=== PATIENT | female | born 1980 | race African-American/Black ===

== ENCOUNTER 2023-07-22 23:52 | Emergency (ER) | payer OTHER ==
--- OUTSIDE RECORDS SUMMARY | 2023-07-22 23:58 | XMS REPORT | Continuity of Care Document ---
Author Name Unknown Address [address] [facility] [address] [place] [address] [facility] thconnect Address [address] [facility] [address] [place] [address] Care Team Providers Care Services Advisor Name Role Phone No , Pcp Primary Care Physician Unavailab Samia Matson Attending Clinician Unavailab Bj Claudio Attending Clinician Unavailable Shaq Coats Attending Clinician Unavailab Terence Araujo MD Attending Clinician [phone] Jam Tolliver Attending Clinician Unavailable Brett Rodriguez Attending Clinician Unavailable Grace Castano Attending Clinician Unavailable Glen Nava Attending Clinician Unavailable Rony Hickey Attending Clinician Unavailable Ron Tipton Attending Clinician Unavailable [facility]_Lotze_P Attending Clinician UnavailMary Kay Carvalho Attending Clinician [phone] Robyn Henry Attending Clinician Unavailaugustina Tolliver, Jam H Admitting Clinician Unavailable Bj Oneal Admitting Clinician Unavailable Javi Cuadra Admitting Clinician Unavailable Grace Castano Admitting Clinician Unavailable Glen Nava Admitting Clinician Unavailable Ron Tipton Admitting Clinician Unavailable UNDEFINED Admitting Clinician Unavailable [facility]_Lotze_P Admitting Clinician Unavaila ble KNOW, DOES_NOT Admitting Clinician Unavailable Payers Payer Name Policy Type Policy Number Effective Date Expirati on Date Source [facility] [id number] 2021 00:00:00 Allergies, Adverse Reactions, Alerts Allergy Name Allergy Type Status Severity Reaction(s) Onset Date Inactive Date Treating Clinician Comments Source Iodinate d Contrast Media DA Active U UNKNOWN 0 2-20 00:00: 00 [facility] adhesive tape DA Active [place] HIVES 0 1-15 00:00: 00 [facility] sumatrip bailey DA Active U ITCHY 0 1-15 00:00: 00 [facility] ertapene m DA Active [place] Itching 0 1-15 00:00: 00 [facility] CONTRAST DA Active FL RASH 2023-0 1-15 00:00: 00 [facility] Adhesive Tape Drug Allergy Active Hives 2022-0 9-21 00:00: 00 [facility] adhesive tape DA Active [place] HIVES 2022-0 9-21 00:00: 00 [facility] Ertapene m Allergy to substanc e Active Itching 2022-0 9-10 00:00: 00 [facility] ertapene m DA Active FL Itching 2022-0 9-10 00:00: 00 [facility] sumatrip bailey DA Active [place] ANXIETY 2021-0 7-07 00:00: 00 [facility] sumatrip bailey DA Active U ITCHY 2021-0 6-08 00:00: 00 [facility] Sumatrip bailey Allergy to substanc e Active Hives 2021-0 6-08 00:00: 00 [facility] Social History Social Habit Start Date Stop Date Quantity Comments Source Sexual orientation [facility] History of tobacco use Cigar Smoker [facility] Tobacco use and exposure 2023-02-04 00:00:00 2023-02-04 00:00:00 Smokeless tobacco non-user [facility] Sex Assigned At 1980 00:00:00 1980 00:00:00 [facility] Smoking Status Start Date Stop Date Source Occasional tobacco smoker 2023-02-04 00:00:00 [facility] Medications Ordered Medication Name Filled Medication Name Start Date Stop Date Current Medication? Ordering Clinician Indication Dosage Frequency Signature (SIG) Comments Components Source losartan (Cozaar) 25 MG tablet 2022-03 12:01: 14 Yes 1{tbl} 1 tablet. [facility] Ozempic, 2 MG/DOSE, 8 MG/3ML solution pen-injecto r 2022-03 00:00: 00 Yes [facility] hydroCHLORO thiazide (HYDRODiuri l) 25 MG tablet 2022-03 00:00: 00 04-24 05:59 :00 No 25mg Take 25 mg by mouth 1 (one) time each day in the morning. [facility] citalopram (CeleXA) 10 MG tablet 2022-03 00:00: 00 Yes 10mg QD Take 10 mg by mouth 1 (one) time each day. FOR 30 DAYS [facility] albuterol 108 (90 Base) MCG/ACT inhaler 2022-03 00:00: 00 Yes TAKE 2 PUFF BY MOUTH EVERY 4 HRS NEEDED [facility] levothyroxi ne (Synthroid, Levoxyl) 125 MCG tablet 11-06 00:00: 00 Yes 1 (one) time each day at the same time. [facility] cephalexin 500 mg capsule cephalexin 500 mg capsule No cephalexin 500 mg capsule [facility] ketorolac 10 mg tablet ketorolac 10 mg tablet No ketorolac 10 mg tablet [facility] Vital Signs Vital Name Observation Time Observation Value Comments S our Systolic blood pressure 2023-02-04 18:22:00 105 mm[Hg] [facility] Diastolic blood pressure 2023-02-04 18:22:00 72 mm[Hg] [facility] Heart rate 2023-02-04 18:22:00 81 /min [facility] Body temperature 2023-02-04 18:22:00 36.78 Sarah [facility] Body height 2023-02-04 18:22:00 165.1 [facility] Body weight 2023-02-04 18:22:00 95.255 kg [facility] BMI 2023-02-04 18:22:00 34.95 kg/m2 [facility] BP Diastolic 2021-09-18 00:00:00 93 mm[Hg] [facility] Height 2021-09-18 00:00:00 65 [in_i] [facility] BMI (Body Mass Index) 2021-09-18 00:00:00 33.3 kg/m2 [facility] BP Systolic 2021-09-18 00:00:00 137 mm[Hg] [facility] Body Weight 2021-09-18 00:00:00 200 [lb_av] [facility] Procedures Procedure Date / Time Performed Performing Clinicia n Source [id number] 2023-04-15 00:00:00 [id number] [facility] [id number] 2023-04-09 00:00:00 HINPE [facility] [id number] 2022-11-24 00:00:00 KUMSA.02 [facility] [id number] 2022-11-24 00:00:00 KUMSA.02 [facility] [id number] 2022-11-21 00:00:00 HINPE [facility] [id number] 2022-11-21 00:00:00 HINPE [facility] [id number] 2021-09-29 00:00:00 WILJA.07 [facility] Encounters Start Date/Time End Date/Time Encounter Type Admission Type Attending [facility] Care Facility Care Department Encounter ID Source 2023-05-14 21:51:00 2023-05-15 05:32:00 Emergency EM Shana Samia HCAPM SHMUEL [id number] [facility] 2023-04-08 17:20:00 2023-04-15 17:27:00 Inpatient EM Bj Oneal HCAPM MEDI.01 [id number] [facility] 2023-04-08 12:03:00 2023-04-08 12:03:00 Outpatient Shaq Coats [facility] [id number] [facility] 2023-02-04 11:15:00 2023-02-04 12:50:41 Office Visit Terence Puentes [facility] 1 [id number] [facility] 2023-01-22 12:00:00 2023-01-22 12:00:00 Outpatient EL Jam Tolliver HCAPM KANDACE [id number] [facility] 2023-01-03 13:02:00 2023-01-03 13:02:00 Outpatient EL Jennifer, Brett HCAPM RADI [id number] [facility] 2022-12-14 12:20:00 2022-12-14 12:20:00 Outpatient EL Jennifer, Brett HCACL LABO [id number] [facility] 2022-12-14 06:10:00 2022-12-14 06:10:00 Outpatient EL Jennifer, Brett HCAPM DIALLO [id number] [facility] 2022-12-03 12:49:00 2022-12-05 14:36:00 Inpatient EM Grace Castano HCAPM MEDI.01 [id number] [facility] 2022-12-02 18:34:00 2022-12-02 18:34:00 Outpatient EL Charity Castanotaramorgan HCACL LABO [id number] [facility] 2022-11-20 15:41:00 2022-11-24 20:02:00 Inpatient EM Glen Nava HCAPM MEDI.01 [id number] [facility] 2022-11-20 16:14:00 2022-11-20 16:14:00 Outpatient Glen Nava HCACL LABO [id number] [facility] 2022-11-07 06:14:00 2022-11-07 09:20:00 Emergency EM Rony Hickey HCAPM SHMUEL [id number] [facility] 2022-11-01 17:19:00 2022-11-04 16:13:00 Inpatient EM Bj Oneal HCAPM TELE [id number] [facility] 2022-11-01 22:37:00 2022-11-01 22:37:00 Outpatient Bj Oneal HCACL LABO [id number] [facility] 2021-09-28 23:24:00 2021-09-29 22:18:00 Inpatient Ron Pelayo [facility] ICU [id number] [facility] 2021-09-28 23:24:00 2021-09-29 22:18:00 Inpatient Ron Pelayo [facility] ICU [id number] [facility] 2021-09-29 17:44:00 2021-09-29 17:44:00 Outpatient Ron Tipton [facility] [id number] [facility] 2021-09-19 05:20:00 2021-09-19 05:20:00 Outpatient [facility] _Lotze_P PRIV PRIV [id number] [facility] 2021-09-18 04:18:00 2021-09-18 04:18:00 Outpatient [facility] _Lotze_P PRIV PRIV [id number] [facility] 2021-09-18 00:00:00 2021-09-18 00:00:00 Mary Kay Robertson, PRODUCT DEVELOPMENT CARPENTER: [address], [address], [place] [address] , Ph. [phone] [facility] - [facility] _Nas Office* [id number] [facility] 2021-09-18 00:00:00 2021-09-18 00:00:[address] [facility] [id number] 2021-09-08 02:12:00 2021-09-08 02:12:00 Outpatient [facility] _Lotze_P PRIV PRIV [id number] [facility] 2021-08-30 19:42:00 2021-08-31 01:46:00 Emergency EM Daphney Henryice [facility] [id number] [facility] 2021-08-30 19:42:00 2021-08-31 01:46:00 Emergency EM Robyn Henry [facility] [id number] [facility] 2021-08-30 04:41:00 2021-08-30 04:41:00 Outpatient [facility] _Lotze_P [facility] PRIV [id number] [facility] Results Test Description Test Time Test Comments Results Result Co mments Source BASIC METABOLIC [id number] 05:28:00* Test Item Value Reference Range Interpretation Comme nts SODIUM (test code = NA) 139 mmol/L 134-147 N POTASSIUM (test code = K) 3.6 mmol/L 3.4-5.0 N CHLORIDE (test code = CL) 105 mmol/L 100-108 N CARBON DIOXIDE (test code = CO2) 31 mmol/L 21-32 N ANION GAP (test code = GAP) 3.0 GAP calc 4.0-15.0 L GLUCOSE (test code = GLU) 93 MG/DL 70-110 N BLOOD UREA NITROGEN (test code = BUN) 7 MG/DL 7-18 N GLOMERULAR FILTRATION RATE (test code = GFR) >=60 max estimate estGFR >60 The Glomerular Filtration Rate is a calculated parameterbased on serum Creatinine, patient age and sex. GFR valuesless than 60 mL/min/1.73 square meters are indicative ofChronic Kidney Disease. Values less than 15 mL/min/1.73square meters indicate Kidney failure. The calculation forGFR is based on the CKD-EPI (2020) calculation. This formulais race indifferent and is the recommended formula for GFRby the National Kidney Foundation for Adults.The GFR will not calculate if the sex is unknown or if thepatient's age is <18 years. CREATININE (test code = CREAT) 0.9 MG/DL 0.6-1.0 N CALCIUM (test code = CA) 8.1 MG/DL 8.5-10.1 L CBC W/AUTO [id number] 05:05:00* Test Item Value Reference Range Interpretation Comme nts WHITE BLOOD CELL (test code = WBC) 5.5 K/mm3 3.5-11.0 N RED BLOOD CELL (test code = RBC) 3.86 M/mm3 4.70-6.10 L HEMOGLOBIN (test code = HGB) 9.4 G/DL 10.4-14.9 L HEMATOCRIT (test code = HCT) 30.2 % 31.5-44.1 L MEAN CELL VOLUME (test code = MCV) 78.2 Fl 84.5-98.6 L MEAN CELL HGB (test code = MCH) 24.4 pg 27.0-34.2 L MEAN CELL HGB CONCETRATION (test code = MCHC) 31.1 G/DL 31.5-34.0 L RED CELL DISTRIBUTION WIDTH (test code = RDW) 14.5 SD 11.5-14.5 N PLATELET COUNT (test code = PLT) 276 K/mm3 150-450 N MEAN PLATELET VOLUME (test c ode = MPV) 10.80 fL 7.0-10.5 H NEUTROPHIL % (test code = NT%) 56.0 % 40-76 IMMATURE GRANULOCYTE % (test code = IG%) 0.2 % 0.0-5.0 N LYMPHOCYTE % (test code = LY%) 30.7 % 20.5-51.1 N MONOCYTE % (test code = MO%) 10.2 % 1.7-9.3 H EOSINOPHIL % (test code = EO%) 2.5 % 0.0-6.0 N BASOPHIL % (test code = BA%) 0.4 % 0.0-2.0 N NUCLEATED RBC % (test code = NRBC%) 0.0 /100WBC% 0.0-1.0 N NEUTROPHIL # (test code = NT#) 3.1 K/mm3 1.8-7.6 N IMMATURE GRANULOCYTE # (test code = IG#) 0.01 x10 3/uL 0.00-0.03 N LYMPHOCYTE # (test code = LY#) 1.7 K/mm3 0.6-3.2 N MONOCYTE # (test code = MO#) 0.6 K/mm3 0.3-1.1 N EOSINOPHIL # (test code = EO#) 0.1 K/mm3 0.0-0.4 N BASOPHIL # (test code = BA#) 0.0 K/mm3 0.0-0.1 N NUCLEATED RBC # (test code = NRBC#) 0.0 K/mm3 0.0-0.1 N - CT HEAD/BRAIN W/O [id number] 09:42:00 [facility] HQLONNIE ALMEIDA : 1980 Sex: F Name: EMIR BELLO [facility] : 1980 Age/S: 43 / F [address] [place] [address] Unit #: [id number] Loc: [place] [address] Phys: Torsten Craig APRNNP Acct: [id number] Dis Date: Status: ADM IN PHONE #: [phone] Exam Date: 04/10/2023919 FAX #: Reason: Hallucination EXAMS: CPT: [id number] CT HEAD/BRAIN W/O CONT 88025 Location Code: S17 EXAMINATION: - CT HEAD/BRAIN W/O CONT CLINICAL INDICATION: Female, 43 years old with Hallucination TECHNIQUE: Axial CT images from the skull base to the vertex without intravenous contrast. Coronal and sagittal reformatted images were created from the data set. One or more of the following dose reduction techniques were used: Automated exposure control, adjustment of the mA and/or kV according to patient size, and/or iterative reconstruction. COMPARISON: CT head November 01, 2022. FINDINGS: Intracranial: No abnormal brain parenchymal density. No evidence of acute intracranial hemorrhage, mass effect, or abnormal extra-axial fluid collection. The ventricles are symmetric. No midline shift. Vascular: The larger dural venous sinuses are grossly normal. No significant atherosclerotic plaque. Sinuses: The visualizedparanasal sinuses and mastoid air cells are predominantly clear. Bones: The osseous structures are intact. The orbits appear symmetric. IMPRESSION: No CT evidence of acute intracranial process. at 0942 Reported and signed by: Feliciano Barriga M.D. CC: Bj Oneal MD; Torsten Craig; Jam Tolliver MD Technologist:CLIVE ANGULO CTDI: DLP: Trnscb Date/Time: 04/10/2023 (941) [id number] Orig Print D/T: S: 04/10/2023 (2418) PAGE 1 Signed ReportCBC W/AUTO [id number] 07:24:00* Test Item Value Reference Range Interpretation Comme nts WHITE BLOOD CELL (test code = WBC) 6.4 K/mm3 3.5-11.0 N RED BLOOD CELL (test code = RBC) 4.39 M/mm3 4.70-6.10 L HEMOGLOBIN (test code = HGB) 10.8 G/DL 10.4-14.9 N HEMATOCRIT (test code = HCT) 34.6 % 31.5-44.1 N MEAN CELL VOLUME (test code = MCV) 78.8 Fl 84.5-98.6 L MEAN CELL HGB (test code = MCH) 24.6 pg 27.0-34.2 L MEAN CELL HGB CONCETRATION (test code = MCHC) 31.2 G/DL 31.5-34.0 L RED CELL DISTRIBUTION WIDTH (test code = RDW) 14.5 SD 11.5-14.5 N PLATELET COUNT (test code = PLT) 253 K/mm3 150-450 N MEAN PLATELET VOLUME (test c ode = MPV) 10.90 fL 7.0-10.5 H NEUTROPHIL % (test code = NT%) 67.3 % 40-76 IMMATURE GRANULOCYTE % (test code = IG%) 0.2 % 0.0-5.0 N LYMPHOCYTE % (test code = LY%) 20.0 % 20.5-51.1 L MONOCYTE % (test code = MO%) 8.6 % 1.7-9.3 N EOSINOPHIL % (test code = EO%) 3.6 % 0.0-6.0 N BASOPHIL % (test code = BA%) 0.3 % 0.0-2.0 N NUCLEATED RBC % (test code = NRBC%) 0.0 /100WBC% 0.0-1.0 N NEUTROPHIL # (test code = NT#) 4.3 K/mm3 1.8-7.6 N IMMATURE GRANULOCYTE # (test code = IG#) 0.01 x10 3/uL 0.00-0.03 N LYMPHOCYTE # (test code = LY#) 1.3 K/mm3 0.6-3.2 N MONOCYTE # (test code = MO#) 0.6 K/mm3 0.3-1.1 N EOSINOPHIL # (test code = EO#) 0.2 K/mm3 0.0-0.4 N BASOPHIL # (test code = BA#) 0.0 K/mm3 0.0-0.1 N NUCLEATED RBC # (test code = NRBC#) 0.0 K/mm3 0.0-0.1 N [id number] 06:45:00* Test Item Value Reference Range Interpretation Comme nts PHOSPHOROUS (test code = PHOS) 2.0 MG/DL 2.5-4.9 L [id number] 06:45:00* Test Item Value Reference Range Interpretation Comme nts MAGNESIUM (test code = MAG) 2.1 MG/DL 1.8-2.4 N COMPREHENSIVE METABOLIC [id number] 06:44:00* Test Item Value Reference Range Interpretation Comme nts SODIUM (test code = NA) 138 mmol/L 134-147 N POTASSIUM (test code = K) 3.4 mmol/L 3.4-5.0 N CHLORIDE (test code = CL) 105 mmol/L 100-108 N CARBON DIOXIDE (test code = CO2) 32 mmol/L 21-32 N ANION GAP (test code = GAP) 1.0 GAP calc 4.0-15.0 L GLUCOSE (test code = GLU) 94 MG/DL 70-110 N BLOOD UREA NITROGEN (test code = BUN) 5 MG/DL 7-18 L GLOMERULAR FILTRATION RATE (test code = GFR) >=60 max estimate estGFR >60 The Glomerular Filtration Rate is a calculated parameterbased on serum Creatinine, patient age and sex. GFR valuesless than 60 mL/min/1.73 square meters are indicative ofChronic Kidney Disease. Values less than 15 mL/min/1.73square meters indicate Kidney failure. The calculation forGFR is based on the CKD-EPI (202) calculation. This formulais race indifferent and is the recommended formula for GFRby the National Kidney Foundation for Adults.The GFR will not calculate if the sex is unknown or if thepatient's age is <18 years. CREATININE (test code = CREAT) 1.0 MG/DL 0.6-1.0 N TOTAL PROTEIN (test code = PROT) 7.5 G/DL 6.4-8.2 N ALBUMIN (test code = ALB) 2.9 G/DL 3.4-5.0 L GLOBULIN (test code = GLOB) 4.6 GM/dL ALBUMIN/GLOBULIN RATIO (test code = A/G) 0.6 RATIO 1.2-2.2 L CALCIUM (test code = CA) 8.2 MG/DL 8.5-10.1 L BILIRUBIN TOTAL (test code = BILT) 0.60 MG/DL 0.2-1.2 N SGOT/AST (test code = AST) 17 Unit/L 15-37 N SGPT/ALT (test code = ALT) 29 Unit/L 12-78 N ALKALINE PHOSPHATASE TOTAL (test code = ALKP) 67 Unit/L 45-117 N [id number] 06:19:00* Test Item Value Reference Range Interpretation Comme nts AMMONIA (test code = AMM) < 10 mcMOL/L 11-32 L DRUGS OF ABUSE SCREEN [id number] 02:45:00* Test Item Value Reference Range Interpretation Comme nts URN COCAINE (test code = COCAURN) NEGATIVE SCcutoff See_Comment UNCONFIRMED SCREENING RESULTS SHOULD NOT BE USED FORNON-MEDICAL PURPOSES. [Automated message] The system which generated this result transmitted reference range: <300 NG/ML. The reference range was not used to interpret this result as normal/abnormal. URN CANNABINOIDS (test code = CANNABURN) NEGATIVE SCcutoff See_Comment UNCONFIRMED SCREENING RESULTS SHOULD NOT BE USED FORNON-MEDICAL PURPOSES. [Automated message] The system which generated this result transmitted reference range: <50 NG/ML. The reference range was not used to interpret this result as normal/abnormal. URN AMPHETAMINE (test code = AMPHETURN) NEGATIVE SCcutoff See_Comment UNCONFIRMED SCREENING RESULTS SHOULD NOT BE USED FORNON-MEDICAL PURPOSES. [Automated message] The system which generated this result transmitted reference range: <1000 NG/ML. The reference range was not used to interpret this result as normal/abnormal. URN BARBITURATE (test code = BARBITURN) NEGATIVE SCcutoff See_Comment UNCONFIRMED SCREENING RESULTS SHOULD NOT BE USED FORNON-MEDICAL PURPOSES. [Automated message] The system which generated this result transmitted reference range: <200 NG/ML. The reference range was not used to interpret this result as normal/abnormal. URN BENZODIAZEPINE (test code = BENZOURN) POSITIVE SCcutoff See_Comment A UNCONFIRMED SCREENING RESULTS SHOULD NOT BE USED FORNON-MEDICAL PURPOSES. [Automated message] The system which generated this result transmitted reference range: <200 NG/ML. The reference range was not used to interpret this result as normal/abnormal. URN OPIATES (test code = OPIATURN) NEGATIVE SCcutoff See_Comment UNCONFIRMED SCREENING RESULTS SHOULD NOT BE USED FORNON-MEDICAL PURPOSES. [Automated message] The system which generated this result transmitted reference range: <300 NG/ML. The reference range was not used to interpret this result as normal/abnormal. URN PHENCYCLIDINE (PCP) (test code = PHENCURN) NEGATIVE SCcutoff See_Comment UNCONFIRMED SCREENING RESULTS SHOULD NOT BE USED FORNON-MEDICAL PURPOSES. [Automated message] The system which generated this result transmitted reference range: <25 NG/ML. The reference range was not used to interpret this result as normal/abnormal. URN METHADONE (test code = METHAURN) NEGATIVE SCcutoff See_Comment UNCONFIRMED SCREENING RESULTS SHOULD NOT BE USED FORNON-MEDICAL PURPOSES. [Automated message] The system which generated this result transmitted reference range: <300 NG/ML. The reference range was not used to interpret this result as normal/abnormal. GLUCOSE BEDSIDE [id number] 11:27:00* Test Item Value Reference Range Interpretation Comme [facility] GLUCOSE BEDSIDE TESTING (brooke t code = GLUBED) 88 mg/dL 70-110 N - CT ABD PELVIS W/O [id number] 12:20:00 [facility] 1980 [facility]: F [facility] 1980 Age/S: 43 / F [address] Unit #: [id number] Loc: [place] [address] Phys: Trinh Schumacher Acct: [id number] Dis Date: Status: REG ER PHONE #: [phone] Exam Date: 04/08/2023 1051 FAX #: Reason: flank pain w/ureteral stent EXAMS: CPT: [id number] CT ABD PELVIS W/O CONT 54086 Location Code: S17 EXAMINATION: - CT ABD PELVIS W/O CONT CLINICAL INDICATION: Female, 43 years old with flank pain w/ureteral stent TECHNIQUE: Thin section axial noncontrast contiguous images were obtained through the abdomen and pelvis followed by coronal and sagittal multiplanar reformations. One or more of the following dose reduction techniques were used: Automated exposure control, adjustment of the mA and/or kV according to patient size, and/or iterative reconstruction. Unless otherwise specified, incidental findings do not require dedicated imaging follow-up. COMPARISON: None FINDINGS: Characterization of the solid organs is limited by lack of contrast media. Lower Chest: Visualized lung bases are clear. Heartis enlarged. Pericardial effusion measures up to 1.7 cm in thickness.. Liver: Liver is enlarged to 18 cm in length. Bile ducts are of normal caliber. Gallbladder: No radiodense gallstones. Pancreas: No evidence of focal pancreatic mass or peripancreatic fluid collection. Spleen: Normal in size andcontour. Adrenals: Normal configuration. Kidneys and ureters: There is a stent in the right renal collecting system with the distal portion in the urinary bladder. There is no evidence of significanthydronephrosis. There is moderate right perinephric stranding and mild induration involving the proximal portion of the right ureter. No evidence of left-sided obstructive PAGE 1 Signed Report (CONTINUED) Name: DAVID BELLOH [place] : 1980 Age/S: 43 / F [address] Unit #: [id number] Loc: [place] [address] Phys: Trinh Schumacher Acct: [id number] Dis Date: Status: REG ER PHONE #: [phone] Exam Date: 04/08/2023 1051 FAX #: Reason: flank pain w/ureteral stent EXAMS: CPT: [id number] CT ABD PELVIS W/O CONT 47659 (Continued) uropathy. Slightly increased attenuation within the renal medulla/pyramids bilaterally. Uterus is grossly unremarkable. Bowel: No evidence of bowel obstruction. Normal appendix. Small amount of free fluid in the pelvis. Lymph nodes: There are no pathologically enlarged abdominopelvic lymph nodes. Retroperitoneum: No massor hemorrhage. Normal caliber unenhanced abdominal aorta. Abdominal wall: No hernia or mass. Bones:No evidence for acute osseous abnormality. IMPRESSION: There is a stent in the right renal collecting system with the distal portion in the urinary bladder. No evidence of significant hydronephrosis.A 4 mm stone is present adjacent to the stent near the right ureterovesicular junction. Moderate right perinephric stranding and mild induration involving the proximal portion of the right ureter suggest infection or inflammation. at 1220 Reported and signed by: Feliciano Barriga M.D. CC: Jam Tolliver MD; Trinh MENJIVAR Technologist:CLIVE ANGULO CTDI: DLP: Trnscb Date/Time: 04/08/2023 (1220) [email or web address] Orig Print D/T: S: 04/08/2023 (7976) PAGE 2 Signed ReportUA RFLX MICR CULT IF [id number] 12:18:00* Test Item Value Reference Range Interpretation Comme nts UA COLOR (test code = COLU) STRAW discript YEL/STRAW UA APPEARANCE (test code = APPU) SL CLOUDY discript CLEAR UA GLUCOSE DIPSTICK (test code = DGLUU) NEGATIVE mg/dL NEG UA BILIRUBIN DIPSTICK (test code = BILU) NEGATIVE mg/dL NEG UA KETONE DIPSTICK (test code = KETU) TRACE mg/dL NEG UA SPECIFIC GRAVITY (test code = SGU) 1.010 SG 1.005-1.030 UA BLOOD DIPSTICK (test code = YAIMA) 3+ mg/DL NEG A UA PH DIPSTICK (test code = MICHAEL) 7.0 pH UNITS 5.0-7.0 UA PROTEIN DIPSTICK (test code = PROU) TRACE mg/dL NEG A UA UROBILINIOGEN DIPSTICK (test code = URO) 0.2 mg/dL <2.0 UA NITRITE DIPSTICK (test code = AMBROCIO) POSITIVE SCREEN NEG A UA LEUKOCYTE ESTERASE DIPSTICK (test code = LEUU) 3+ Leuk/mcL NEGATIVE A UA WBC (test code = WBCU) 10-20 #WBC/HPF 0-3 A UA RBC (test code = RBCU) 3-5 #RBC/HPF 0-3 A UA BACTERIA (test code = BACU) 1+ /HPF NONE-TRACE A UA SQUAMOUS CELLS (test code = SQU) TRACE /HPF NONE UA MUCUS (test code = MUCU) 1+ /LPF NONE SEEN UA YEAST (test code = YEASTU) TRACE /HPF NONE SEEN A UA CULTURE NEEDED? (test code = UACULT) YES,WBC>10 & EPI<25 Criteria Culture CHK Indication for culture: Dysuria/FrequencySOURCE OF URINE: CLEAN CATCHUR HCG QUAL 2023-04-08 11:20:00* Test Item Value Reference Range Interpretation Comme nts UR HCG QUAL (test code = HCGQLU) NEGATIVE NEGATIVE BASIC METABOLIC [id number] 11:12:00* Test Item Value Reference Range Interpretation Comme nts SODIUM (test code = NA) 134 mmol/L 134-147 N POTASSIUM (test code = K) 3.3 mmol/L 3.4-5.0 L CHLORIDE (test code = CL) 100 mmol/L 100-108 N CARBON DIOXIDE (test code = CO2) 27 mmol/L 21-32 N ANION GAP (test code = GAP) 7.0 GAP calc 4.0-15.0 N GLUCOSE (test code = GLU) 129 MG/DL 70-110 H BLOOD UREA NITROGEN (test code = BUN) 9 MG/DL 7-18 N GLOMERULAR FILTRATION RATE (test code = GFR) 52 estGFR >60 L The Glomerular Filtration Rate is a calculated parameterbased on serum Creatinine, patient age and sex. GFR valuesless than 60 mL/min/1.73 square meters are indicative ofChronic Kidney Disease. Values less than 15 mL/min/1.73square meters indicate Kidney failure. The calculation forGFR is based on the CKD-EPI (2020) calculation. This formulais race indifferent and is the recommended formula for GFRby the National Kidney Foundation for Adults.The GFR will not calculate if the sex is unknown or if thepatient's age is <18 years. CREATININE (test code = CREAT) 1.3 MG/DL 0.6-1.0 H CALCIUM (test code = CA) 8.7 MG/DL 8.5-10.1 N HEPATIC FUNCTION [id number] 11:12:00* Test Item Value Reference Range Interpretation Comme nts TOTAL PROTEIN (test code = PROT) 8.3 G/DL 6.4-8.2 H ALBUMIN (test code = ALB) 3.4 G/DL 3.4-5.0 N BILIRUBIN TOTAL (test code = BILT) 1.10 MG/DL 0.2-1.2 N BILIRUBIN DIRECT (test code = BILD) 0.30 MG/DL 0.00-0.30 N BILIRUBIN INDIRECT (test cod e = BILIND) 0.80 MG/DL 0.2-1.2 N SGOT/AST (test code = AST) 23 Unit/L 15-37 N SGPT/ALT (test code = ALT) 30 Unit/L 12-78 N ALKALINE PHOSPHATASE TOTAL ( test code = ALKP) 71 Unit/L 45-117 N TROP-I HIGH [id number] 11:12:00* Test Item Value Reference Range Interpretation Comme nts TROP-I HIGH SENSITIVITY (test code = TROPIHS) 5.2 ng/L 0-54 N CAUTION: Units o f the current test methodology (ng/L) differfrom the prior test methodology (ng/mL) by a factor of 1000. 99th Percentile Upper Reference Limit (URL):Females: 54 ng/LMales: 79 ng/L In order to distinguish acute elevations of high sensitivitytroponin from other clinical conditions, the FourthUniversal Definition of Myocardial Infarction stressesclinical assessment and the demonstration of a rise and/orfall in serial troponin results above the URL. Results from different methodologies should not be comparedto one another as quantitative results and URLs may varyby method. LACTIC [id number] 11:12:00* Test Item Value Reference Range Interpretation Comme nts LACTIC ACID (test code = LACT) 1.1 mmol/L 0.4-2.0 N - XR CHEST 1 [id number] 10:48:00 [facility] : 1980 Sex: F Name: EMIR BELLO [facility] : 1980 Age/S: 43 / F [address] [place] [address] Unit #: [id number] Loc: [place] [address] Phys: Trinh Schumacher Acct: [id number] Dis Date: Status: REG ER PHONE #: [phone] Exam Date: 04/08/2023 1108 FAX #: Reason: Code Sepsis EXAMS: CPT: [id number] XR CHEST 1 V 76670 Fluoro Time: DAP (Gy m2): Air Kerma (mGy): STUDY: Chest radiograph HISTORY: Sepsis COMPARISON: 11/24/2022 TECHNIQUE: Frontal view of the chest. LOCATION: H19 FINDINGS: The cardiac silhouette is unremarkable. There is no focal consolidation, pleural effusion, or pneumothorax. No acute osseous abnormalities are identified. IMPRESSION: No radiographic evidence for acute pulmonary abnormality. [id number] Reported and signed by: Shaq Pena M.D. CC: Jam Tolliver MD; Trinh MENJIVAR PAGE 1 Signed Report Name: DAVID BELLO HQMOJGANO [facility]UAN [facility] 1980 Age/S: 43 / F [address] Unit #: [id number] Loc: [place] [address] Phys: Trinh Schumacher Acct: [id number] Dis Date: Status: REG ER PHONE #: [phone] Exam Date: 04/08/20231106 FAX #: Reason: Code Sepsis EXAMS: CPT: [id number] XR CHEST 1 V 11030 Fluoro Time: DAP (Gy m2): Air Kerma (mGy): (Continued) Technologist: Jay Chavez, RT,(R),(CT) Trnscb Date/Time: 04/08/2023 (1049) [email or web address].[id number] Orig Print D/T: S: 04/08/2023 (2946) PAGE 2 Signed ReportCBC W/AUTO [id number] 10:37:00* Test Item Value Reference Range Interpretation Comme nts WHITE BLOOD CELL (test code = WBC) 10.0 K/mm3 3.5-11.0 N RED BLOOD CELL (test code = RBC) 4.74 M/mm3 4.70-6.10 N HEMOGLOBIN (test code = HGB) 11.8 G/DL 10.4-14.9 N HEMATOCRIT (test code = HCT) 36.7 % 31.5-44.1 N MEAN CELL VOLUME (test code = MCV) 77.4 Fl 84.5-98.6 L MEAN CELL HGB (test code = MCH) 24.9 pg 27.0-34.2 L MEAN CELL HGB CONCETRATION (test code = MCHC) 32.2 G/DL 31.5-34.0 N RED CELL DISTRIBUTION WIDTH (test code = RDW) 14.4 SD 11.5-14.5 N PLATELET COUNT (test code = PLT) 295 K/mm3 150-450 N MEAN PLATELET VOLUME (test c ode = MPV) 10.90 fL 7.0-10.5 H NEUTROPHIL % (test code = NT%) 84.0 % 40-76 H IMMATURE GRANULOCYTE % (test code = IG%) 0.4 % 0.0-5.0 N LYMPHOCYTE % (test code = LY%) 8.0 % 20.5-51.1 L MONOCYTE % (test code = MO%) 7.3 % 1.7-9.3 N EOSINOPHIL % (test code = EO%) 0.1 % 0.0-6.0 N BASOPHIL % (test code = BA%) 0.2 % 0.0-2.0 N NUCLEATED RBC % (test code = NRBC%) 0.0 /100WBC% 0.0-1.0 N NEUTROPHIL # (test code = NT#) 8.4 K/mm3 1.8-7.6 H IMMATURE GRANULOCYTE # (test code = IG#) 0.04 x10 3/uL 0.00-0.03 H LYMPHOCYTE # (test code = LY#) 0.8 K/mm3 0.6-3.2 N MONOCYTE # (test code = MO#) 0.7 K/mm3 0.3-1.1 N EOSINOPHIL # (test code = EO#) 0.0 K/mm3 0.0-0.4 N BASOPHIL # (test code = BA#) 0.0 K/mm3 0.0-0.1 N NUCLEATED RBC # (test code = NRBC#) 0.0 K/mm3 0.0-0.1 N [facility] RETROPERITONEAL [id number] 14:50:00 [facility] HQIRRO N : 1980 Sex: F Name: EMIR BELLO [facility] : 1980 Age/S: 42 / F [address] Unit #: [id number] Loc: [place] [address] Phys: Brett Rodriguez MD Acct: [id number] Dis Date: Status: REG CLI PHONE #: [phone] Exam Date: 01/03/2023 1400 FAX #: Reason: RENAL CALCULI EXAMS: CPT: [id number] US RETROPERITONEAL COM [id number] ULTRASOUND: - US RETROPERITONEAL COM History: Kidney stones Comparison: November 20, [address] from November 01, 2022.. B- mode/Rizvi scale imaging with color Doppler perfusion imaging and spectral analysis was performed. The right kidney is 11.5 x 4.4 x 4.7 cm with parenchymal thickness at 7 mm. The lower pole contains a echogenic focus up to 1.3 cm in diameter likely a stone found on CT. Trace hydronephrosis may continue. The left kidney measures 12.1 x 5.3 x 4 cm with parenchymal thickness up to 1 cm. Good perfusion on Doppler. No stones or obstruction. Bladder intact with bilateral ureteral jet effect seen. Upon voiding, the right kidney is reimaged and still continues show trace of hydronephrosis. Impression: Trace right hydronephrosis. 1.3 cm lower pole renal calculus suggested, similarly. Location: 9 at 1450 Reported and signed by: Shaq Ramos M.D. CC:Javi Cuadra MD; Brett Rodriguez MD Technologist: Linnette Holloway Trnscb Date/Time: 01/03/2023 (1450) [email or web address] PAGE 1 Signed Report Name: DAVID BELLO [facility] : 1980 Age/S: 42 / F [address] Unit #: [id number] Loc: [place] [address] Phys: Brett Rodriguez MD Acct: [id number] Dis Date: Status: REG CLI PHONE #: [phone] Exam Date: 01/03/2023 1400 FAX #: Reason: RENAL CALCULI EXAMS: CPT: [id number] [place] COM [id number] (Continued) Orig Print D/T: S: 12/23 (1453) Probe: PAGE 2 Signed Report- XR FLUOROSCOPY 0-60 [id number] 09:37:00[facility] HQIRRO N : 1980 Sex: F Name: EMIR BELLOHA DIANNEMOJGANO David [facility] : 1980 Age/S: 42 / F [address] Unit #: [id number] Loc: [place] [address] Phys: Brett Rodriguez MD Acct: [id number] Dis Date: Status: [facility] PHONE #: [phone] Exam Date: 12/14/2022 0900 FAX #: Reason: CYSTO EXAMS: CPT: [id number] XR FLUOROSCOPY 0-60 MIN 17594 Fluoro Time: 23.3 DAP (Gy m2): Air Kerma (mGy): 5.5 Location Code: S17 Fluoroscopy was provided by the Department of Radiology for cystogram. A Radiologist was not present for the procedure. Please refer to the surgeon's operative report. One fluoroscopic spot image was submitted. Total exposure time: 23.3 seconds. Cumulative Air Kerma: 5.5 mGy. ElectronicallySigned by Feliciano Barriga M.D. on 12/14/2022 at 0937 Reported and signed by: Feliciano Barriga M.D. CC: Javi Cuadra MD; Brett Rodriguez MD PAGE 1 Signed Report Name: JAQUAN BELLOCorby VALDEZO N [facility] [place] : 1980 Age/S: 42 / F [address] Unit #: [id number] Loc: [place] [address] Phys: Brett Rodriguez MD Acct: [id number] Dis Date: Status: REG [facility] PHONE #: [phone] Exam Date: FAX #: Reason: CYSTO EXAMS: CPT: [id number] XR FLUOROSCOPY 0-60 MIN 21570 Fluoro Time: 23.3 DAP (Gy m2): Air Kerma (mGy): 5.5 (Continued) Technologist: Sejal Encarnacion Trnscb Date/Time: 12/14/2022 (936) [email or web address] Orig Print D/T: S: 12/14/2022 (8101) PAGE 2 Signed ReportCBC W/AUTO [id number] 07:17:00* Test Item Value Reference Range Interpretation Comme nts WHITE BLOOD CELL (test code = WBC) 6.3 K/mm3 3.5-11.0 N RED BLOOD CELL (test code = RBC) 4.25 M/mm3 4.70-6.10 L HEMOGLOBIN (test code = HGB) 10.9 G/DL 10.4-14.9 N HEMATOCRIT (test code = HCT) 34.5 % 31.5-44.1 N MEAN CELL VOLUME (test code = MCV) 81.2 Fl 84.5-98.6 L MEAN CELL HGB (test code = MCH) 25.6 pg 27.0-34.2 L MEAN CELL HGB CONCETRATION (test code = MCHC) 31.6 G/DL 31.5-34.0 N RED CELL DISTRIBUTION WIDTH (test code = RDW) 17.6 SD 11.5-14.5 H PLATELET COUNT (test code = PLT) 307 K/mm3 150-450 N MEAN PLATELET VOLUME (test c ode = MPV) 11.10 fL 7.0-10.5 H NEUTROPHIL % (test code = NT%) 65.5 % 40-76 N IMMATURE GRANULOCYTE % (test code = IG%) 0.3 % 0.0-5.0 N LYMPHOCYTE % (test code = LY%) 20.5 % 20.5-51.1 N MONOCYTE % (test code = MO%) 7.5 % 1.7-9.3 N EOSINOPHIL % (test code = EO%) 5.2 % 0.0-6.0 N BASOPHIL % (test code = BA%) 1.0 % 0.0-2.0 N NUCLEATED RBC % (test code = NRBC%) 0.0 /100WBC% 0.0-1.0 N NEUTROPHIL # (test code = NT#) 4.1 K/mm3 1.8-7.6 N IMMATURE GRANULOCYTE # (test code = IG#) 0.02 x10 3/uL 0.00-0.03 N LYMPHOCYTE # (test code = LY#) 1.3 K/mm3 0.6-3.2 N MONOCYTE # (test code = MO#) 0.5 K/mm3 0.3-1.1 N EOSINOPHIL # (test code = EO#) 0.3 K/mm3 0.0-0.4 N BASOPHIL # (test code = BA#) 0.1 K/mm3 0.0-0.1 N NUCLEATED RBC # (test code = NRBC#) 0.0 K/mm3 0.0-0.1 N MANUAL DIFF REQUIRED (test c ode = MDIFF) NO DIFF/SCN CRITERIA BASIC METABOLIC [id number] 07:03:00* Test Item Value Reference Range Interpretation Comme nts SODIUM (test code = NA) 139 mmol/L 134-147 N POTASSIUM (test code = K) 3.6 mmol/L 3.4-5.0 N CHLORIDE (test code = CL) 101 mmol/L 100-108 N CARBON DIOXIDE (test code = CO2) 31 mmol/L 21-32 N ANION GAP (test code = GAP) 7.0 GAP calc 4.0-15.0 N GLUCOSE (test code = GLU) 131 MG/DL 70-110 H BLOOD UREA NITROGEN (test code = BUN) 9 MG/DL 7-18 N GLOMERULAR FILTRATION RATE (test code = GFR) >=60 max estimate estGFR >60 The Glomerular Filtration Rate is a calculated parameterbased on serum Creatinine, patient age and sex. GFR valuesless than 60 mL/min/1.73 square meters are indicative ofChronic Kidney Disease. Values less than 15 mL/min/1.73square meters indicate Kidney failure. The calculation forGFR is based on the CKD-EPI (2020) calculation. This formulais race indifferent and is the recommended formula for GFRby the National Kidney Foundation for Adults.The GFR will not calculate if the sex is unknown or if thepatient's age is <18 years. CREATININE (test code = CREAT) 1.1 MG/DL 0.6-1.0 H CALCIUM (test code = CA) 8.4 MG/DL 8.5-10.1 L GLUCOSE BEDSIDE [id number] 07:02:00* Test Item Value Reference Range Interpretation Comme nts GLUCOSE BEDSIDE TESTING (brooke t code = GLUBED) 132 mg/dL 70-110 H UR HCG [id number] 06:57:00* Test Item Value Reference Range Interpretation Comme nts UR HCG QUAL (test code = HCGQLU) NEGATIVE NEGATIVE GLUCOSE BEDSIDE [id number] 12:30:00* Test Item Value Reference Range Interpretation Comme nts GLUCOSE BEDSIDE TESTING (brooke t code = GLUBED) 175 mg/dL 70-110 H GLUCOSE BEDSIDE [id number] 08:13:00* Test Item Value Reference Range Interpretation Comme nts GLUCOSE BEDSIDE TESTING (brooke t code = GLUBED) 127 mg/dL 70-110 H GLUCOSE BEDSIDE [id number] 22:36:00* Test Item Value Reference Range Interpretation Comme nts GLUCOSE BEDSIDE TESTING (brooke t code = GLUBED) 114 mg/dL 70-110 H GLUCOSE BEDSIDE [id number] 18:33:00* Test Item Value Reference Range Interpretation Comme nts GLUCOSE BEDSIDE TESTING (brooke t code = GLUBED) 106 mg/dL 70-110 N GLUCOSE BEDSIDE [id number] 12:05:00* Test Item Value Reference Range Interpretation Comme nts GLUCOSE BEDSIDE TESTING (brooke t code = GLUBED) 171 mg/dL 70-110 H GLUCOSE BEDSIDE [id number] 11:58:00* Test Item Value Reference Range Interpretation Comme nts GLUCOSE BEDSIDE TESTING (brooke t code = GLUBED) 171 mg/dL 70-110 H GLUCOSE BEDSIDE [id number] 07:29:00* Test Item Value Reference Range Interpretation Comme nts GLUCOSE BEDSIDE TESTING (brooke t code = GLUBED) 107 mg/dL 70-110 N CBC W/AUTO [id number] 05:38:00* Test Item Value Reference Range Interpretation Comme nts WHITE BLOOD CELL (test code = WBC) 5.4 K/mm3 3.5-11.0 N RED BLOOD CELL (test code = RBC) 4.05 M/mm3 4.70-6.10 L HEMOGLOBIN (test code = HGB) 10.2 G/DL 10.4-14.9 L HEMATOCRIT (test code = HCT) 33.2 % 31.5-44.1 N MEAN CELL VOLUME (test code = MCV) 82.0 Fl 84.5-98.6 L MEAN CELL HGB (test code = MCH) 25.2 pg 27.0-34.2 L MEAN CELL HGB CONCETRATION (test code = MCHC) 30.7 G/DL 31.5-34.0 L RED CELL DISTRIBUTION WIDTH (test code = RDW) 15.9 SD 11.5-14.5 H PLATELET COUNT (test code = PLT) 307 K/mm3 150-450 N MEAN PLATELET VOLUME (test c ode = MPV) 10.70 fL 7.0-10.5 H NEUTROPHIL % (test code = NT%) 44.4 % 40-76 IMMATURE GRANULOCYTE % (test code = IG%) 0.2 % 0.0-5.0 N LYMPHOCYTE % (test code = LY%) 46.9 % 20.5-51.1 N MONOCYTE % (test code = MO%) 5.3 % 1.7-9.3 N EOSINOPHIL % (test code = EO%) 1.7 % 0.0-6.0 N BASOPHIL % (test code = BA%) 1.5 % 0.0-2.0 N NUCLEATED RBC % (test code = NRBC%) 0.0 /100WBC% 0.0-1.0 N NEUTROPHIL # (test code = NT#) 2.4 K/mm3 1.8-7.6 N IMMATURE GRANULOCYTE # (test code = IG#) 0.01 x10 3/uL 0.00-0.03 N LYMPHOCYTE # (test code = LY#) 2.6 K/mm3 0.6-3.2 N MONOCYTE # (test code = MO#) 0.3 K/mm3 0.3-1.1 N EOSINOPHIL # (test code = EO#) 0.1 K/mm3 0.0-0.4 N BASOPHIL # (test code = BA#) 0.1 K/mm3 0.0-0.1 N NUCLEATED RBC # (test code = NRBC#) 0.0 K/mm3 0.0-0.1 N MANUAL DIFF REQUIRED (test c ode = MDIFF) NO DIFF/SCN CRITERIA BASIC METABOLIC [id number] 04:43:00* Test Item Value Reference Range Interpretation Comme nts SODIUM (test code = NA) 140 mmol/L 134-147 N POTASSIUM (test code = K) 3.7 mmol/L 3.4-5.0 N CHLORIDE (test code = CL) 106 mmol/L 100-108 N CARBON DIOXIDE (test code = CO2) 29 mmol/L 21-32 N ANION GAP (test code = GAP) 5.0 GAP calc 4.0-15.0 N GLUCOSE (test code = GLU) 107 MG/DL 70-110 N BLOOD UREA NITROGEN (test code = BUN) 13 MG/DL 7-18 N GLOMERULAR FILTRATION RATE (test code = GFR) 52 estGFR >60 L The Glomerular Filtration Rate is a calculated parameterbased on serum Creatinine, patient age and sex. GFR valuesless than 60 mL/min/1.73 square meters are indicative ofChronic Kidney Disease. Values less than 15 mL/min/1.73square meters indicate Kidney failure. The calculation forGFR is based on the CKD-EPI (2020) calculation. This formulais race indifferent and is the recommended formula for GFRby the National Kidney Foundation for Adults.The GFR will not calculate if the sex is unknown or if thepatient's age is <18 years. CREATININE (test code = CREAT) 1.3 MG/DL 0.6-1.0 H CALCIUM (test code = CA) 7.8 MG/DL 8.5-10.1 L GLUCOSE BEDSIDE [id number] 21:21:00* Test Item Value Reference Range Interpretation Comme nts GLUCOSE BEDSIDE TESTING (brooke t code = GLUBED) 107 mg/dL 70-110 N GLUCOSE BEDSIDE [id number] 18:02:00* Test Item Value Reference Range Interpretation Comme nts GLUCOSE BEDSIDE TESTING (brooke t code = GLUBED) 187 mg/dL 70-110 H GLUCOSE BEDSIDE [id number] 12:20:00* Test Item Value Reference Range Interpretation Comme nts GLUCOSE BEDSIDE TESTING (brooke t code = GLUBED) 140 mg/dL 70-110 H GLUCOSE BEDSIDE [id number] 08:04:00* Test Item Value Reference Range Interpretation Comme nts GLUCOSE BEDSIDE TESTING (brooke t code = GLUBED) 111 mg/dL 70-110 H COMPREHENSIVE METABOLIC [id number] 06:14:00* Test Item Value Reference Range Interpretation Comme nts SODIUM (test code = NA) 137 mmol/L 134-147 N POTASSIUM (test code = K) 4.4 mmol/L 3.4-5.0 N CHLORIDE (test code = CL) 105 mmol/L 100-108 N CARBON DIOXIDE (test code = CO2) 27 mmol/L 21-32 N ANION GAP (test code = GAP) 5.0 GAP calc 4.0-15.0 N GLUCOSE (test code = GLU) 117 MG/DL 70-110 H BLOOD UREA NITROGEN (test code = BUN) 10 MG/DL 7-18 N GLOMERULAR FILTRATION RATE (test code = GFR) 58 estGFR >60 L The Glomerular Filtration Rate is a calculated parameterbased on serum Creatinine, patient age and sex. GFR valuesless than 60 mL/min/1.73 square meters are indicative ofChronic Kidney Disease. Values less than 15 mL/min/1.73square meters indicate Kidney failure. The calculation forGFR is based on the CKD-EPI (202) calculation. This formulais race indifferent and is the recommended formula for GFRby the National Kidney Foundation for Adults.The GFR will not calculate if the sex is unknown or if thepatient's age is <18 years. CREATININE (test code = CREAT) 1.2 MG/DL 0.6-1.0 H TOTAL PROTEIN (test code = PROT) 7.8 G/DL 6.4-8.2 N ALBUMIN (test code = ALB) 2.8 G/DL 3.4-5.0 L GLOBULIN (test code = GLOB) 5.0 GM/dL ALBUMIN/GLOBULIN RATIO (test code = A/G) 0.6 RATIO 1.2-2.2 L CALCIUM (test code = CA) 8.3 MG/DL 8.5-10.1 L BILIRUBIN TOTAL (test code = BILT) 0.30 MG/DL 0.2-1.2 N SGOT/AST (test code = AST) 20 Unit/L 15-37 N SGPT/ALT (test code = ALT) 24 Unit/L 12-78 N ALKALINE PHOSPHATASE TOTAL (test code = ALKP) 87 Unit/L 45-117 N CBC W/AUTO [id number] 05:59:00* Test Item Value Reference Range Interpretation Comme nts WHITE BLOOD CELL (test code = WBC) 6.0 K/mm3 3.5-11.0 N RED BLOOD CELL (test code = RBC) 4.15 M/mm3 4.70-6.10 L HEMOGLOBIN (test code = HGB) 10.4 G/DL 10.4-14.9 N HEMATOCRIT (test code = HCT) 32.7 % 31.5-44.1 N MEAN CELL VOLUME (test code = MCV) 78.8 Fl 84.5-98.6 L MEAN CELL HGB (test code = MCH) 25.1 pg 27.0-34.2 L MEAN CELL HGB CONCETRATION (test code = MCHC) 31.8 G/DL 31.5-34.0 N RED CELL DISTRIBUTION WIDTH (test code = RDW) 15.7 SD 11.5-14.5 H PLATELET COUNT (test code = PLT) 297 K/mm3 150-450 N MEAN PLATELET VOLUME (test c ode = MPV) 10.60 fL 7.0-10.5 H NEUTROPHIL % (test code = NT%) 69.8 % 40-76 N IMMATURE GRANULOCYTE % (test code = IG%) 0.2 % 0.0-5.0 N LYMPHOCYTE % (test code = LY%) 24.0 % 20.5-51.1 N MONOCYTE % (test code = MO%) 5.3 % 1.7-9.3 N EOSINOPHIL % (test code = EO%) 0.2 % 0.0-6.0 N BASOPHIL % (test code = BA%) 0.5 % 0.0-2.0 N NUCLEATED RBC % (test code = NRBC%) 0.0 /100WBC% 0.0-1.0 N NEUTROPHIL # (test code = NT#) 4.2 K/mm3 1.8-7.6 N IMMATURE GRANULOCYTE # (test code = IG#) 0.01 x10 3/uL 0.00-0.03 N LYMPHOCYTE # (test code = LY#) 1.4 K/mm3 0.6-3.2 N MONOCYTE # (test code = MO#) 0.3 K/mm3 0.3-1.1 N EOSINOPHIL # (test code = EO#) 0.0 K/mm3 0.0-0.4 N BASOPHIL # (test code = BA#) 0.0 K/mm3 0.0-0.1 N NUCLEATED RBC # (test code = NRBC#) 0.0 K/mm3 0.0-0.1 N MANUAL DIFF REQUIRED (test c ode = MDIFF) NO DIFF/SCN CRITERIA GLUCOSE BEDSIDE [id number] 20:05:00* Test Item Value Reference Range Interpretation Comme nts GLUCOSE BEDSIDE TESTING (brooke t code = GLUBED) 162 mg/dL 70-110 H COMPREHENSIVE METABOLIC [id number] 12:48:00* Test Item Value Reference Range Interpretation Comme nts SODIUM (test code = NA) 138 mmol/L 134-147 N POTASSIUM (test code = K) 4.4 mmol/L 3.4-5.0 N CHLORIDE (test code = CL) 104 mmol/L 100-108 N CARBON DIOXIDE (test code = CO2) 30 mmol/L 21-32 N ANION GAP (test code = GAP) 4.0 GAP calc 4.0-15.0 N GLUCOSE (test code = GLU) 107 MG/DL 70-110 N BLOOD UREA NITROGEN (test code = BUN) 11 MG/DL 7-18 N GLOMERULAR FILTRATION RATE (test code = GFR) 58 estGFR >60 L The Glomerular Filtration Rate is a calculated parameterbased on serum Creatinine, patient age and sex. GFR valuesless than 60 mL/min/1.73 square meters are indicative ofChronic Kidney Disease. Values less than 15 mL/min/1.73square meters indicate Kidney failure. The calculation forGFR is based on the CKD-EPI (2020) calculation. This formulais race indifferent and is the recommended formula for GFRby the National Kidney Foundation for Adults.The GFR will not calculate if the sex is unknown or if thepatient's age is <18 years. CREATININE (test code = CREAT) 1.2 MG/DL 0.6-1.0 H TOTAL PROTEIN (test code = PROT) 8.3 G/DL 6.4-8.2 H ALBUMIN (test code = ALB) 3.2 G/DL 3.4-5.0 L GLOBULIN (test code = GLOB) 5.1 GM/dL ALBUMIN/GLOBULIN RATIO (test code = A/G) 0.6 RATIO 1.2-2.2 L CALCIUM (test code = CA) 8.5 MG/DL 8.5-10.1 N BILIRUBIN TOTAL (test code = BILT) 0.30 MG/DL 0.2-1.2 N SGOT/AST (test code = AST) 22 Unit/L 15-37 N SGPT/ALT (test code = ALT) 29 Unit/L 12-78 N ALKALINE PHOSPHATASE TOTAL (test code = ALKP) 92 Unit/L 45-117 N HCG [id number] 12:39:00* Test Item Value Reference Range Interpretation Comme nts HCG SERUM (test code = HCG) < 1 mi-IU/ML 0-6 N 0 - 6 NOT PREGNA NT > 6 SUGGESTIVE OF EARLY RISES TWO FOLD EVERY 2 DAYS; SUGGEST RECONFIRMING AFTER 2 DAYS. 150,000-200,[address] TRIMESTER 10,000 - 50,000 2ND & 3RD TRIMESTER UA RFLX MICR CULT IF [id number] 12:36:00* Test Item Value Reference Range Interpretation Comme nts UA COLOR (test code = COLU) STRAW discript YEL/STRAW UA APPEARANCE (test code = APPU) CLOUDY discript CLEAR A UA GLUCOSE DIPSTICK (test code = DGLUU) NEGATIVE mg/dL NEG UA BILIRUBIN DIPSTICK (test code = BILU) NEGATIVE mg/dL NEG UA KETONE DIPSTICK (test code = KETU) NEGATIVE mg/dL NEG UA SPECIFIC GRAVITY (test code = SGU) 1.015 SG 1.005-1.030 UA BLOOD DIPSTICK (test code = YAIMA) TRACE mg/DL NEG A UA PH DIPSTICK (test code = MICHAEL) 6.5 pH UNITS 5.0-7.0 UA PROTEIN DIPSTICK (test code = PROU) NEGATIVE mg/dL NEG UA UROBILINIOGEN DIPSTICK (test code = URO) 0.2 mg/dL <2.0 UA NITRITE DIPSTICK (test code = AMBROCIO) NEGATIVE SCREEN NEG UA LEUKOCYTE ESTERASE DIPSTICK (test code = LEUU) 3+ Leuk/mcL NEGATIVE A UA WBC (test code = WBCU) 20-30 #WBC/HPF 0-3 A UA RBC (test code = RBCU) 5-10 #RBC/HPF 0-3 A UA BACTERIA (test code = BACU) TRACE /HPF NONE-TRACE UA CULTURE NEEDED? (test code = UACULT) YES,WBC>10 & EPI<25 Criteria Culture CHK Indication for culture: Suprapubic PainSOURCE OF URINE: MIDSTREAMUR HCG QUAL 2022-12-02 12:36:00* Test Item Value Reference Range Interpretation Comme nts UR HCG QUAL (test code = HCGQLU) NEGATIVE NEGATIVE Indication for culture: Suprapubic PainSOURCE OF URINE: MIDSTREAMCBC W/O DIFF 2022-12-02 12:28:00* Test Item Value Reference Range Interpretation Comme nts WHITE BLOOD CELL (test code = WBC) 3.8 K/mm3 3.5-11.0 N RED BLOOD CELL (test code = RBC) 4.54 M/mm3 4.70-6.10 L HEMOGLOBIN (test code = HGB) 11.3 G/DL 10.4-14.9 N HEMATOCRIT (test code = HCT) 36.2 % 31.5-44.1 N MEAN CELL VOLUME (test code = MCV) 79.7 Fl 84.5-98.6 L MEAN CELL HGB (test code = MCH) 24.9 pg 27.0-34.2 L MEAN CELL HGB CONCETRATION ( test code = MCHC) 31.2 G/DL 31.5-34.0 L RED CELL DISTRIBUTION WIDTH (test code = RDW) 15.8 SD 11.5-14.5 H PLATELET COUNT (test code = PLT) 384 K/mm3 150-450 N MEAN PLATELET VOLUME (test c ode = MPV) 10.90 fL 7.0-10.5 H - XR CHEST 1 [id number] 13:23:00 [facility] : 1980 Sex: F Name: EMIR BELLO HQLONNIE N [facility] : 1980 Age/S: 42 / F [address] Unit #: [id number] Loc: [place] [address] Phys: Grace Castano MD Acct: [id number] Dis Date: Status: ADM IN PHONE #: [phone] Exam Date: 11/24/2022 1315 FAX #: Reason: PICC LINE EXAMS:CPT: [id number] XR CHEST 1 V [id number] Fluoro Time: DAP (Gy m2): Air Kerma (mGy): H 20 TIME OF STUDY: 11/24/2022 1:10 PM REASON FOR EXAM: PICC LINE COMPARISON: November 01, 2022 FINDINGS: AP view of the chestwas obtained. Support devices: Left arm approach PICC is in place with the tip in the mid SVC. Lungs: Normal lung volume. No mass, or consolidation. Normal pulmonary vascularity. Pleura: No pleural effusion or pneumothorax. Heart and Mediastinum: Normal cardiomediastinal silhouette and great vessels. Bones: Normal regional skeletal structures. IMPRESSION: 1. Left arm PICC is appropriately positioned. at 1323 Reported and signed by: Nader Longoria M.D. CC: Javi Cuadra MD; Glen Nava MD; Grace Castano MD PAGE 1 Signed Report Name: DAVID BELLO HQIRRO N [facility] : 1980 Age/S: 42 / F [address] [address] Unit#: [id number] Loc: [place] [address] Phys: Grace Castano MD Acct: [id number] Dis Date: Status: ADM IN PHONE #: [phone] Exam Date: 11/24/2022 1315 FAX #: Reason: PICC LINE EXAMS: CPT: [id number] XR CHEST 1 V 15687 Fluoro Time: DAP (Gy m2): Air Kerma (mGy): (Continued) Technologist: Jay Chavez RT,(R),(CT) Trnscb Date/Time: 11/24/2022 (1322) [email or web address] Orig Print D/T: S: 11/24/2022 (8649) PAGE 2 Signed Report- XR FLUOROSCOPY 0-60 MIN 2022-11-21 22:47:00 [facility] DAVID BELL[facility] HQMOJGANRavi Hernandez : 1980 Sex: F Name: EMIR BELLOHA HQLONNIE N [facility] : 1980 Age/S: 42 / F [address] [address] Unit #: [id number] Loc: [place] [address] Phys: Glen Nava MD Acct: [id number] Dis Date:Status: ADM IN PHONE #: [phone] Exam Date: 11/21/2022 1824 FAX #: Reason: R CYSTO RETRO STENT PLACEMENT EXAMS: CPT: [id number] XR FLUOROSCOPY 0-60 MIN 80403 Fluoro Time: 110 SEC DAP (Gy m2): Air Kerma (mGy): EXAM: - XR FLUOROSCOPY 0-60 MIN LOCATION: 01 CLINICAL HISTORY/INDICATION: R CYSTO RETRO STENT PLACEMENT FINDINGS: Intraoperative fluoroscopy was provided by the radiology department. Fluoroscopy time: 110.1 seconds Cumulative air kerma: 58.40 mGy Fluoroscopic guidance for ureteral stent placement. IMPRESSION: Fluoroscopic guidance as above. at 2612 Reported and signed by: Víctor Boyle M.D. CC: Javi Cuadra MD; Glen Nava MD PAGE 1 Signed Report Name: DAVID BELLO HQIRRO N [facility] [place] : 1980 Age/S: 42 / F [address] Unit #: [id number] Loc: [place] [address] Phys: Glen Nava MD Acct: [id number] Dis Date: Status: ADM IN PHONE #: [phone] Exam Date: 11/21/2022 1824 FAX #: Reason: R CYSTO RETRO STENT PLACEMENT EXAMS: CPT: [id number] XR FLUOROSCOPY 0-60 MIN 38559 Fluoro Time: 110 SEC DAP (Gy m2): Air Kerma (mGy): (Continued) Technologist: Ubalod Valencia, RT(R) TrnscbDate/Time: 11/21/2022 (2246) [email or web address] Orig Print D/T: S: 11/21/2022 (0209) PAGE 2 Signed ReportUR HCG QUAL 2022-11-21 17:33:00* Test Item Value Reference Range Interpretation Comme nts UR HCG QUAL (test code = HCGQLU) NEGATIVE NEGATIVE COVID 19 INHOUSE [id number] 17:13:00* Test Item Value Reference Range Interpretation Comme nts COVID 19 INHOUSE AG (test code = [id number]) NEGATIVE Negative Per financial market dealer , negative results should be treated aspresumptive and, if inconsistent with clinical signs andsymptoms or necessary for patient management, should betested with an alternative molecular assay. Negative resultsdo not preclude SARS-CoV-2 infection and should not be usedas the sole basis for patient management decisions. Negative results should be considered in the context of apatient's recent exposures, history, presence of clinicalsigns and symptoms consistent with COVID-19. GLUCOSE BEDSIDE [id number] 16:34:00* Test Item Value Reference Range Interpretation Comme nts GLUCOSE BEDSIDE TESTING (brooke t code = GLUBED) 114 mg/dL 70-110 H UA RFLX MICR CULT IF [id number] 13:26:00* Test Item Value Reference Range Interpretation Comme nts UA COLOR (test code = COLU) YELLOW discript YEL/STRAW UA APPEARANCE (test code = APPU) CLEAR discript CLEAR UA GLUCOSE DIPSTICK (test code = DGLUU) NEGATIVE mg/dL NEG UA BILIRUBIN DIPSTICK (test code = BILU) NEGATIVE mg/dL NEG UA KETONE DIPSTICK (test code = KETU) TRACE mg/dL NEG UA SPECIFIC GRAVITY (test code = SGU) <=1.005 SG 1.005-1.030 UA BLOOD DIPSTICK (test code = YAIMA) 2+ mg/DL NEG A UA PH DIPSTICK (test code = MICHAEL) 6.0 pH UNITS 5.0-7.0 UA PROTEIN DIPSTICK (test code = PROU) 1+ mg/dL NEG A UA UROBILINIOGEN DIPSTICK (test code = URO) 4.0 mg/dL <2.0 A UA NITRITE DIPSTICK (test code = AMBROCIO) NEGATIVE SCREEN NEG UA LEUKOCYTE ESTERASE DIPSTICK (test code = LEUU) NEGATIVE Leuk/mcL NEGATIVE UA WBC (test code = WBCU) 1-3 #WBC/HPF 0-3 UA RBC (test code = RBCU) 0-1 #RBC/HPF 0-3 UA BACTERIA (test code = BACU) OCCASIONAL /HPF NONE-TRACE UA SQUAMOUS CELLS (test code = SQU) TRACE /HPF NONE UA CULTURE NEEDED? (test code = UACULT) NO, WBC<10 Criteria Culture CHK Indication for culture: Flank Pain Temperature > 100.4 FSOURCE OF URINE: CLEAN CATCHGLUCOSE BEDSIDE [id number] 11:50:00* Test Item Value Reference Range Interpretation Comme nts GLUCOSE BEDSIDE TESTING (brooke t code = GLUBED) 151 mg/dL 70-110 H CBC W/AUTO [id number] 09:30:00* Test Item Value Reference Range Interpretation Comme nts WHITE BLOOD CELL (test code = WBC) 15.6 K/mm3 3.5-11.0 H RED BLOOD CELL (test code = RBC) 3.83 M/mm3 4.70-6.10 L HEMOGLOBIN (test code = HGB) 9.6 G/DL 10.4-14.9 L HEMATOCRIT (test code = HCT) 30.5 % 31.5-44.1 L MEAN CELL VOLUME (test code = MCV) 79.6 Fl 84.5-98.6 L MEAN CELL HGB (test code = MCH) 25.1 pg 27.0-34.2 L MEAN CELL HGB CONCETRATION ( test code = MCHC) 31.5 G/DL 31.5-34.0 N RED CELL DISTRIBUTION WIDTH (test code = RDW) 14.6 SD 11.5-14.5 H PLATELET COUNT (test code = PLT) 273 K/mm3 150-450 N MEAN PLATELET VOLUME (test c ode = MPV) 10.10 fL 7.0-10.5 N NEUTROPHIL % (test code = NT%) % 40-76 H IMMATURE GRANULOCYTE % (test code = IG%) % 0.0-5.0 N LYMPHOCYTE % (test code = LY%) % 20.5-51.1 L MONOCYTE % (test code = MO%) % 1.7-9.3 N EOSINOPHIL % (test code = EO%) % 0.0-6.0 N BASOPHIL % (test code = BA%) % 0.0-2.0 N NUCLEATED RBC % (test code = NRBC%) /100WBC% 0.0-1.0 N NEUTROPHIL # (test code = NT#) K/mm3 1.8-7.6 H IMMATURE GRANULOCYTE # (test code = IG#) x10 3/uL 0.00-0.03 H LYMPHOCYTE # (test code = LY#) K/mm3 0.6-3.2 N MONOCYTE # (test code = MO#) K/mm3 0.3-1.1 N EOSINOPHIL # (test code = EO#) K/mm3 0.0-0.4 N BASOPHIL # (test code = BA#) K/mm3 0.0-0.1 N NUCLEATED RBC # (test code = NRBC#) K/mm3 0.0-0.1 N MANUAL DIFF REQUIRED (test c ode = MDIFF) YES DIFF/SCN CRITERIA WBC [id number] 09:30:00* Test Item Value Reference Range Interpretation Comme nts SEGMENTED NEUTROPHILS (test code = SEG) 89 % 40-75 H LYMPHOCYTE (test code = LYMPH) 2 % 18.7-40.6 L BAND NEUTROPHIL (test code = BAND) 5 % 0-8 MONOCYTE (test code = MON) 4 % 3.8-11.4 N HYPOCHROMIA (test code = HYPO) 1+ ON SCAN NONE POIKILOCYTOSIS (test code = POIK) 1+ ON SCAN NONE ANISOCYTOSIS (test code = ANISO) 1+ NONE MICROCYTOSIS (test code = MICR) 1+ ON SCAN NONE PLATELET COUNT W/ [id number] 09:30:00* Test Item Value Reference Range Interpretation [facility] PLATELET ESTIMATE (test code = PLTEST) ADEQUATE THOUSAND ADEQUATE PLATELET MORPHOLOGY (test code = PLTMORPH) NORMAL PROTHROMBIN [id number] 08:54:00* Test Item Value Reference Range Interpretation [facility] (test code = PTP) 14.7 SECONDS 9.3-12.9 H INTERNATIONAL NORMAL RATIO (test code = INR) 1.32 INR Unit 0.8-1.2 H TARGET INR BY INDICATION Indication INR1. Prophylaxis of venous thrombosis 2.0 - 3.0 (orthopedic surgery), Prophylaxis of venous thrombosis (other than high-risk surgery), Treatment of Deep Vein Thrombosis/Pulmonary Embolism, Prevention of systemic embolism - Tissue heart valves, Acute Myocardial Infarction (to prevent systemic embolism), Valvular heart disease, Acute Myocardial Infarction (to prevent systemic embolism), Valvular heart disease, Atrial Fibrillation, Bileaflet mechanical valve in aortic position.2. Mechanical prosthetic valves (high risk), 2.5 - 3.5 Presence of Lupus Anticoagulant or Antiphospholipid Antibodies, Prevention of systemic embolism - Acute Myocardial Infarction (to prevent recurrent infarct). THROMBOPLASTIN TIME [id number] 08:54:00* Test Item Value Reference Range Interpretation [facility] THROMBOPLASTIN TIME PARTIAL (test code = PTT) 30.9 SECONDS 26-35 N [id number] 08:54:00* Test Item Value Reference Range Interpretation [facility] FIBRINOGEN (test code = FIB) 842 mg/dL 185-453 H COMPREHENSIVE METABOLIC [id number] 08:52:00* Test Item Value Reference Range Interpretation [facility] SODIUM (test code = NA) 133 mmol/L 134-147 L POTASSIUM (test code = K) 4.1 mmol/L 3.4-5.0 N CHLORIDE (test code = CL) 101 mmol/L 100-108 N CARBON DIOXIDE (test code = CO2) 26 mmol/L 21-32 N ANION GAP (test code = GAP) 6.0 GAP calc 4.0-15.0 N GLUCOSE (test code = GLU) 112 MG/DL 70-110 H BLOOD UREA NITROGEN (test code = BUN) 17 MG/DL 7-18 N GLOMERULAR FILTRATION RATE (test code = GFR) 31 estGFR >60 L The Glomerular Filtration Rate is a calculated parameterbased on serum Creatinine, patient age and sex. GFR valuesless than 60 mL/min/1.73 square meters are indicative ofChronic Kidney Disease. Values less than 15 mL/min/1.73square meters indicate Kidney failure. The calculation forGFR is based on the CKD-EPI (2020) calculation. This formulais race indifferent and is the recommended formula for GFRby the National Kidney Foundation for Adults.The GFR will not calculate if the sex is unknown or if thepatient's age is <18 years. CREATININE (test code = CREAT) 2.0 MG/DL 0.6-1.0 H TOTAL PROTEIN (test code = PROT) 7.0 G/DL 6.4-8.2 N ALBUMIN (test code = ALB) 2.1 G/DL 3.4-5.0 L GLOBULIN (test code = GLOB) 4.9 GM/dL ALBUMIN/GLOBULIN RATIO (test code = A/G) 0.4 RATIO 1.2-2.2 L CALCIUM (test code = CA) 7.4 MG/DL 8.5-10.1 L BILIRUBIN TOTAL (test code = BILT) 1.20 MG/DL 0.2-1.2 N SGOT/AST (test code = AST) 42 Unit/L 15-37 H SGPT/ALT (test code = ALT) 45 Unit/L 12-78 N ALKALINE PHOSPHATASE TOTAL (test code = ALKP) 162 Unit/L 45-117 H [id number] 08:52:00* Test Item Value Reference Range Interpretation Comme nts MAGNESIUM (test code = MAG) 1.6 MG/DL 1.8-2.4 L LACTIC [id number] 08:52:00* Test Item Value Reference Range Interpretation Comme nts LACTIC ACID (test code = LACT) 1.3 mmol/L 0.4-2.0 N GLUCOSE BEDSIDE [id number] 07:36:00* Test Item Value Reference Range Interpretation Comme nts GLUCOSE BEDSIDE TESTING (brooke t code = GLUBED) 98 mg/dL 70-110 N CBC W/AUTO [id number] 06:44:00* Test Item Value Reference Range Interpretation Comme nts WHITE BLOOD CELL (test code = WBC) 8.6 K/mm3 3.5-11.0 N RED BLOOD CELL (test code = RBC) 4.03 M/mm3 4.70-6.10 L HEMOGLOBIN (test code = HGB) 10.1 G/DL 10.4-14.9 L HEMATOCRIT (test code = HCT) 32.2 % 31.5-44.1 N MEAN CELL VOLUME (test code = MCV) 79.9 Fl 84.5-98.6 L MEAN CELL HGB (test code = MCH) 25.1 pg 27.0-34.2 L MEAN CELL HGB CONCETRATION ( test code = MCHC) 31.4 G/DL 31.5-34.0 L RED CELL DISTRIBUTION WIDTH (test code = RDW) 14.4 SD 11.5-14.5 N PLATELET COUNT (test code = PLT) 275 K/mm3 150-450 N MEAN PLATELET VOLUME (test c ode = MPV) 10.50 fL 7.0-10.5 N NEUTROPHIL % (test code = NT%) % 40-76 H IMMATURE GRANULOCYTE % (test code = IG%) % 0.0-5.0 N LYMPHOCYTE % (test code = LY%) % 20.5-51.1 L MONOCYTE % (test code = MO%) % 1.7-9.3 L EOSINOPHIL % (test code = EO%) % 0.0-6.0 N BASOPHIL % (test code = BA%) % 0.0-2.0 N NUCLEATED RBC % (test code = NRBC%) /100WBC% 0.0-1.0 N NEUTROPHIL # (test code = NT#) K/mm3 1.8-7.6 H IMMATURE GRANULOCYTE # (test code = IG#) x10 3/uL 0.00-0.03 H LYMPHOCYTE # (test code = LY#) K/mm3 0.6-3.2 L MONOCYTE # (test code = MO#) K/mm3 0.3-1.1 L EOSINOPHIL # (test code = EO#) K/mm3 0.0-0.4 N BASOPHIL # (test code = BA#) K/mm3 0.0-0.1 N NUCLEATED RBC # (test code = NRBC#) K/mm3 0.0-0.1 N MANUAL DIFF REQUIRED (test c ode = MDIFF) YES DIFF/SCN CRITERIA WBC [id number] 06:44:00* Test Item Value Reference Range Interpretation Comme nts SEGMENTED NEUTROPHILS (test code = SEG) 69 % 40-75 N LYMPHOCYTE (test code = LYMPH) 4 % 18.7-40.6 L BAND NEUTROPHIL (test code = BAND) 21 % 0-8 H MONOCYTE (test code = MON) 1 % 3.8-11.4 L EOSINOPHIL (test code = EOS) 1 % 0.0-4.1 N BASOPHIL (test code = BASO) 2 % 0.0-2.1 N METAMYELOCYTE (test code = META) 2 % 0-2 N HYPOCHROMIA (test code = HYPO) TRACE ON SCAN NONE TARGET CELLS (test code = TGT) TRACE ON SCAN NONE OVALOCYTES (test code = OVAL) TRACE ON SCAN NONE PLATELET ESTIMATE (test code = PLTEST) ADEQUATE THOUSAND ADEQUATE PLATELET MORPHOLOGY (test code = PLTMORPH) OCC LARGE PLATELET BASIC METABOLIC [id number] 05:14:00* Test Item Value Reference Range Interpretation Comme nts SODIUM (test code = NA) 134 mmol/L 134-147 N POTASSIUM (test code = K) 3.8 mmol/L 3.4-5.0 N CHLORIDE (test code = CL) 99 mmol/L 100-108 L CARBON DIOXIDE (test code = CO2) 28 mmol/L 21-32 N ANION GAP (test code = GAP) 7.0 GAP calc 4.0-15.0 N GLUCOSE (test code = GLU) 123 MG/DL 70-110 H BLOOD UREA NITROGEN (test code = BUN) 17 MG/DL 7-18 N GLOMERULAR FILTRATION RATE (test code = GFR) 28 estGFR >60 L The Glomerular Filtration Rate is a calculated parameterbased on serum Creatinine, patient age and sex. GFR valuesless than 60 mL/min/1.73 square meters are indicative ofChronic Kidney Disease. Values less than 15 mL/min/1.73square meters indicate Kidney failure. The calculation forGFR is based on the CKD-EPI (202) calculation. This formulais race indifferent and is the recommended formula for GFRby the National Kidney Foundation for Adults.The GFR will not calculate if the sex is unknown or if thepatient's age is <18 years. CREATININE (test code = CREAT) 2.2 MG/DL 0.6-1.0 H CALCIUM (test code = CA) 7.6 MG/DL 8.5-10.1 L GLUCOSE BEDSIDE [id number] 21:16:00* Test Item Value Reference Range Interpretation Comme nts GLUCOSE BEDSIDE TESTING (brooke t code = GLUBED) 155 mg/dL 70-110 H LACTIC [id number] 20:49:00* Test Item Value Reference Range Interpretation Comme nts LACTIC ACID (test code = LACT) 1.2 mmol/L 0.4-2.0 N GLUCOSE BEDSIDE [id number] 18:43:00* Test Item Value Reference Range Interpretation Comme nts GLUCOSE BEDSIDE TESTING (brooke t code = GLUBED) 156 mg/dL 70-110 H - US RETROPERITONEAL [id number] 16:41:00 [facility] DAVID BE[facility] HQIRRO N : 1980 Sex: F Name: EMIR BELLO HQIRRO N [facility] : 1980 Age/S: 42 / F [address] [address] Unit #: [id number] Loc: [place] [address] Phys: Trinh Schumacher Acct: [id number] DisDate: Status: ADM IN PHONE #: [phone] Exam Date: 11/20/2022 1623 FAX #: Reason: R renal pole stone EXAMS: CPT: [id number] US RETROPERITONEAL COM [id number] EXAM: - US RETROPERITONEAL COM LOCATION: U19 HISTORY: R renal pole stone TECHNIQUE: Grayscale B-mode and color Doppler sonographic images of the kidneys were performed. Dedicated grayscale B-mode and color Doppler pelvic imaging of the urinary bladder was also performed. COMPARISON: CT abdomen and pelvis 11/01/2022 FINDINGS: The right kidney measures 13.7 x 6.5 x 5.9 cm. Normal echogenicity and contour. Mild to moderate hydronephrosis with caliectasis distention noted. Shadowing calculus measuring 1.6 cm noted in the renal pelvis, favoring kidney stone. The left kidney measures 11.6 x 5.5 x 5.9 cm. Normal echogenicity and contour. No hydronephrosis or perinephric fluid collections. The urinary bladder volume is 100.62 mL with postvoid residual volume of 105.88 mL. Bilateral ureteral jets are seen. IMPRESSION: Mild to moderate right-sided hydronephrosis. 1.6 cm kidney stone noted in the right renal pelvis. at 1641 Reported and signed by: Ramin Nath D.O. CC: Javi Cuadra MD; Trinh MENJIVAR; Link An MD Technologist: Kristen Rosa, RT Trnscb Date/Time: 11/20/2022 (164) [id number] PAGE 1 Signed Report Name: DAVID BELLO HQIRRO [facility] : 1980 Age/S: 42 / F [id number] [address] Unit #: [id number] Loc: [place] [address] Phys: Trinh Schumacher Acct: [id number] Dis Date: Status: ADM IN PHONE #: [phone] Exam Date: 11/20/2022 1623 FAX #: Reason: R renal pole stone EXAMS: CPT: [id number] US Spotie COM [id number] (Continued) Orig Print D/T: S: 11/20/2022 (1644) Probe: PAGE 2 Signed ReportLACTIC [id number] 16:11:00* Test Item Value Reference Range Interpretation Comme nts LACTIC ACID (test code = LACT) 2.2 mmol/L 0.4-2.0 H CBC W/AUTO [id number] 16:03:00* Test Item Value Reference Range Interpretation Comme nts WHITE BLOOD CELL (test code = WBC) 10.5 K/mm3 3.5-11.0 N RED BLOOD CELL (test code = RBC) 4.24 M/mm3 4.70-6.10 L HEMOGLOBIN (test code = HGB) 10.7 G/DL 10.4-14.9 N HEMATOCRIT (test code = HCT) 33.6 % 31.5-44.1 N MEAN CELL VOLUME (test code = MCV) 79.2 Fl 84.5-98.6 L MEAN CELL HGB (test code = MCH) 25.2 pg 27.0-34.2 L MEAN CELL HGB CONCETRATION ( test code = MCHC) 31.8 G/DL 31.5-34.0 N RED CELL DISTRIBUTION WIDTH (test code = RDW) 14.2 SD 11.5-14.5 N PLATELET COUNT (test code = PLT) 386 K/mm3 150-450 N MEAN PLATELET VOLUME (test c ode = MPV) 10.30 fL 7.0-10.5 N NEUTROPHIL % (test code = NT%) % 40-76 H IMMATURE GRANULOCYTE % (test code = IG%) % 0.0-5.0 N LYMPHOCYTE % (test code = LY%) % 20.5-51.1 L MONOCYTE % (test code = MO%) % 1.7-9.3 N EOSINOPHIL % (test code = EO%) % 0.0-6.0 N BASOPHIL % (test code = BA%) % 0.0-2.0 N NUCLEATED RBC % (test code = NRBC%) /100WBC% 0.0-1.0 N NEUTROPHIL # (test code = NT#) K/mm3 1.8-7.6 H IMMATURE GRANULOCYTE # (test code = IG#) x10 3/uL 0.00-0.03 H LYMPHOCYTE # (test code = LY#) K/mm3 0.6-3.2 L MONOCYTE # (test code = MO#) K/mm3 0.3-1.1 L EOSINOPHIL # (test code = EO#) K/mm3 0.0-0.4 N BASOPHIL # (test code = BA#) K/mm3 0.0-0.1 N NUCLEATED RBC # (test code = NRBC#) K/mm3 0.0-0.1 N MANUAL DIFF REQUIRED (test c ode = MDIFF) YES DIFF/SCN CRITERIA WBC [id number] 16:03:00* Test Item Value Reference Range Interpretation Comme nts SEGMENTED NEUTROPHILS (test code = SEG) 71 % 40-75 N LYMPHOCYTE (test code = LYMPH) 3 % 18.7-40.6 L BAND NEUTROPHIL (test code = BAND) 25 % 0-8 H EOSINOPHIL (test code = EOS) 1 % 0.0-4.1 N ANISOCYTOSIS (test code = ANISO) TRACE NONE OVALOCYTES (test code = OVAL) TRACE ON SCAN NONE LINDSAY CELLS (test code = BUR) TRACE ON SCAN NONE PLATELET ESTIMATE (test code = PLTEST) ADEQUATE THOUSAND ADEQUATE PLATELET MORPHOLOGY (test code = PLTMORPH) NORMAL COMPREHENSIVE METABOLIC [id number] 14:58:00* Test Item Value Reference Range Interpretation Comme nts SODIUM (test code = NA) 129 mmol/L 134-147 L POTASSIUM (test code = K) 3.9 mmol/L 3.4-5.0 N CHLORIDE (test code = CL) 92 mmol/L 100-108 L CARBON DIOXIDE (test code = CO2) 30 mmol/L 21-32 N ANION GAP (test code = GAP) 7.0 GAP calc 4.0-15.0 N GLUCOSE (test code = GLU) 186 MG/DL 70-110 H BLOOD UREA NITROGEN (test code = BUN) 20 MG/DL 7-18 H GLOMERULAR FILTRATION RATE (test code = GFR) 25 estGFR >60 L The Glomerular Filtration Rate is a calculated parameterbased on serum Creatinine, patient age and sex. GFR valuesless than 60 mL/min/1.73 square meters are indicative ofChronic Kidney Disease. Values less than 15 mL/min/1.73square meters indicate Kidney failure. The calculation forGFR is based on the CKD-EPI (2020) calculation. This formulais race indifferent and is the recommended formula for GFRby the National Kidney Foundation for Adults.The GFR will not calculate if the sex is unknown or if thepatient's age is <18 years. CREATININE (test code = CREAT) 2.4 MG/DL 0.6-1.0 H TOTAL PROTEIN (test code = PROT) 8.1 G/DL 6.4-8.2 N ALBUMIN (test code = ALB) 2.8 G/DL 3.4-5.0 L GLOBULIN (test code = GLOB) 5.3 GM/dL ALBUMIN/GLOBULIN RATIO (test code = A/G) 0.5 RATIO 1.2-2.2 L CALCIUM (test code = CA) 8.2 MG/DL 8.5-10.1 L BILIRUBIN TOTAL (test code = BILT) 1.10 MG/DL 0.2-1.2 N SGOT/AST (test code = AST) 49 Unit/L 15-37 H SGPT/ALT (test code = ALT) 53 Unit/L 12-78 N ALKALINE PHOSPHATASE TOTAL (test code = ALKP) 178 Unit/L 45-117 H LACTIC [id number] 14:45:00* Test Item Value Reference Range Interpretation Comme nts LACTIC ACID (test code = LACT) 3.6 mmol/L 0.4-2.0 H UA RFLX MICR CULT IF [id number] 14:21:00* Test Item Value Reference Range Interpretation Comme nts UA COLOR (test code = COLU) YELLOW discript YEL/STRAW UA APPEARANCE (test code = APPU) SL CLOUDY discript CLEAR UA GLUCOSE DIPSTICK (test code = DGLUU) NEGATIVE mg/dL NEG UA BILIRUBIN DIPSTICK (test code = BILU) NEGATIVE mg/dL NEG UA KETONE DIPSTICK (test code = KETU) NEGATIVE mg/dL NEG UA SPECIFIC GRAVITY (test code = SGU) 1.015 SG 1.005-1.030 UA BLOOD DIPSTICK (test code = YAIMA) 2+ mg/DL NEG A UA PH DIPSTICK (test code = MICHAEL) 5.5 pH UNITS 5.0-7.0 UA PROTEIN DIPSTICK (test code = PROU) 1+ mg/dL NEG A UA UROBILINIOGEN DIPSTICK (test code = URO) 4.0 mg/dL <2.0 A UA NITRITE DIPSTICK (test code = AMBROCIO) NEGATIVE SCREEN NEG UA LEUKOCYTE ESTERASE DIPSTICK (test code = LEUU) 1+ Leuk/mcL NEGATIVE A UA WBC (test code = WBCU) 10-20 #WBC/HPF 0-3 A UA RBC (test code = RBCU) 0-1 #RBC/HPF 0-3 UA BACTERIA (test code = BACU) 1+ /HPF NONE-TRACE A UA SQUAMOUS CELLS (test code = SQU) TRACE /HPF NONE UA CULTURE NEEDED? (test code = UACULT) YES,WBC>10 & EPI<25 Criteria Culture CHK Indication for culture: Gross HematuriaSOURCE OF URINE: CLEAN CATCHUA RFLX MICR CULT IF [id number] 09:11:00* Test Item Value Reference Range Interpretation Comme nts UA COLOR (test code = COLU) STRAW discript YEL/STRAW UA APPEARANCE (test code = APPU) CLEAR discript CLEAR UA GLUCOSE DIPSTICK (test code = DGLUU) NEGATIVE mg/dL NEG UA BILIRUBIN DIPSTICK (test code = BILU) NEGATIVE mg/dL NEG UA KETONE DIPSTICK (test code = KETU) NEGATIVE mg/dL NEG UA SPECIFIC GRAVITY (test code = SGU) 1.010 SG 1.005-1.030 UA BLOOD DIPSTICK (test code = YAIMA) NEGATIVE mg/DL NEG UA PH DIPSTICK (test code = MICHAEL) 6.5 pH UNITS 5.0-7.0 UA PROTEIN DIPSTICK (test code = PROU) NEGATIVE mg/dL NEG UA UROBILINIOGEN DIPSTICK (test code = URO) 0.2 mg/dL <2.0 UA NITRITE DIPSTICK (test code = AMBROCIO) NEGATIVE SCREEN NEG UA LEUKOCYTE ESTERASE DIPSTICK (test code = LEUU) TRACE Leuk/mcL NEGATIVE A UA WBC (test code = WBCU) 3-5 #WBC/HPF 0-3 A UA RBC (test code = RBCU) 0-1 #RBC/HPF 0-3 UA BACTERIA (test code = BACU) OCCASIONAL /HPF NONE-TRACE UA SQUAMOUS CELLS (test code = SQU) TRACE /HPF NONE UA CULTURE NEEDED? (test code = UACULT) NO, WBC<10 Criteria Culture CHK Indication for culture: Flank PainSOURCE OF URINE: CLEAN CATCHBASIC METABOLIC [id number] 07:07:00* Test Item Value Reference Range Interpretation Comme nts SODIUM (test code = NA) 136 mmol/L 134-147 N POTASSIUM (test code = K) 4.3 mmol/L 3.4-5.0 N CHLORIDE (test code = CL) 104 mmol/L 100-108 N CARBON DIOXIDE (test code = CO2) 26 mmol/L 21-32 N ANION GAP (test code = GAP) 6.0 GAP calc 4.0-15.0 N GLUCOSE (test code = GLU) 136 MG/DL 70-110 H BLOOD UREA NITROGEN (test code = BUN) 8 MG/DL 7-18 N GLOMERULAR FILTRATION RATE (test code = GFR) 58 estGFR >60 L The Glomerular Filtration Rate is a calculated parameterbased on serum Creatinine, patient age and sex. GFR valuesless than 60 mL/min/1.73 square meters are indicative ofChronic Kidney Disease. Values less than 15 mL/min/1.73square meters indicate Kidney failure. The calculation forGFR is based on the CKD-EPI (202) calculation. This formulais race indifferent and is the recommended formula for GFRby the National Kidney Foundation for Adults.The GFR will not calculate if the sex is unknown or if thepatient's age is <18 years. CREATININE (test code = CREAT) 1.2 MG/DL 0.6-1.0 H CALCIUM (test code = CA) 8.1 MG/DL 8.5-10.1 L CBC W/AUTO [id number] 07:02:00* Test Item Value Reference Range Interpretation Comme nts WHITE BLOOD CELL (test code = WBC) 8.5 K/mm3 3.5-11.0 N RED BLOOD CELL (test code = RBC) 4.92 M/mm3 4.70-6.10 N HEMOGLOBIN (test code = HGB) 12.3 G/DL 10.4-14.9 N HEMATOCRIT (test code = HCT) 39.1 % 31.5-44.1 N MEAN CELL VOLUME (test code = MCV) 79.5 Fl 84.5-98.6 L MEAN CELL HGB (test code = MCH) 25.0 pg 27.0-34.2 L MEAN CELL HGB CONCETRATION (test code = MCHC) 31.5 G/DL 31.5-34.0 N RED CELL DISTRIBUTION WIDTH (test code = RDW) 14.6 SD 11.5-14.5 H PLATELET COUNT (test code = PLT) 436 K/mm3 150-450 N MEAN PLATELET VOLUME (test c ode = MPV) 9.80 fL 7.0-10.5 N NEUTROPHIL % (test code = NT%) 81.6 % 40-76 H IMMATURE GRANULOCYTE % (test code = IG%) 0.8 % 0.0-5.0 N LYMPHOCYTE % (test code = LY%) 11.5 % 20.5-51.1 L MONOCYTE % (test code = MO%) 5.3 % 1.7-9.3 N EOSINOPHIL % (test code = EO%) 0.4 % 0.0-6.0 N BASOPHIL % (test code = BA%) 0.4 % 0.0-2.0 N NUCLEATED RBC % (test code = NRBC%) 0.0 /100WBC% 0.0-1.0 N NEUTROPHIL # (test code = NT#) 7.0 K/mm3 1.8-7.6 N IMMATURE GRANULOCYTE # (test code = IG#) 0.07 x10 3/uL 0.00-0.03 H LYMPHOCYTE # (test code = LY#) 1.0 K/mm3 0.6-3.2 N MONOCYTE # (test code = MO#) 0.5 K/mm3 0.3-1.1 N EOSINOPHIL # (test code = EO#) 0.0 K/mm3 0.0-0.4 N BASOPHIL # (test code = BA#) 0.0 K/mm3 0.0-0.1 N NUCLEATED RBC # (test code = NRBC#) 0.0 K/mm3 0.0-0.1 N MANUAL DIFF REQUIRED (test c ode = MDIFF) NO DIFF/SCN CRITERIA UR HCG [id number] 06:59:00* Test Item Value Reference Range Interpretation Comme nts UR HCG QUAL (test code = HCGQLU) NEGATIVE NEGATIVE GLUCOSE BEDSIDE [id number] 12:08:00* Test Item Value Reference Range Interpretation Comme nts GLUCOSE BEDSIDE TESTING (brooke t code = GLUBED) 93 mg/dL 70-110 N GLUCOSE BEDSIDE [id number] 08:11:00* Test Item Value Reference Range Interpretation Comme nts GLUCOSE BEDSIDE TESTING (brooke t code = GLUBED) 118 mg/dL 70-110 H BASIC METABOLIC [id number] 05:38:00* Test Item Value Reference Range Interpretation Comme nts SODIUM (test code = NA) 139 mmol/L 134-147 N POTASSIUM (test code = K) 3.4 mmol/L 3.4-5.0 N CHLORIDE (test code = CL) 104 mmol/L 100-108 N CARBON DIOXIDE (test code = CO2) 31 mmol/L 21-32 N ANION GAP (test code = GAP) 4.0 GAP calc 4.0-15.0 N GLUCOSE (test code = GLU) 101 MG/DL 70-110 N BLOOD UREA NITROGEN (test code = BUN) 7 MG/DL 7-18 N GLOMERULAR FILTRATION RATE (test code = GFR) >=60 max estimate estGFR >60 The Glomerular Filtration Rate is a calculated parameterbased on serum Creatinine, patient age and sex. GFR valuesless than 60 mL/min/1.73 square meters are indicative ofChronic Kidney Disease. Values less than 15 mL/min/1.73square meters indicate Kidney failure. The calculation forGFR is based on the CKD-EPI (2020) calculation. This formulais race indifferent and is the recommended formula for GFRby the National Kidney Foundation for Adults.The GFR will not calculate if the sex is unknown or if thepatient's age is <18 years. CREATININE (test code = CREAT) 0.9 MG/DL 0.6-1.0 N CALCIUM (test code = CA) 8.1 MG/DL 8.5-10.1 L GLUCOSE BEDSIDE [id number] 16:30:00* Test Item Value Reference Range Interpretation Comme nts GLUCOSE BEDSIDE TESTING (brooke t code = GLUBED) 142 mg/dL 70-110 H GLUCOSE BEDSIDE [id number] 11:39:00* Test Item Value Reference Range Interpretation Comme nts GLUCOSE BEDSIDE TESTING (brooke t code = GLUBED) 139 mg/dL 70-110 H GLUCOSE BEDSIDE [id number] 07:27:00* Test Item Value Reference Range Interpretation Comme nts GLUCOSE BEDSIDE TESTING (brooke t code = GLUBED) 98 mg/dL 70-110 N GLYCOSYLATED HEMOGLOBIN [id number] 05:43:00* Test Item Value Reference Range Interpretation Comme nts GLYCOSYLATED HEMOGLOBIN (HA1 C) (test code = GLYHGB) 6.5 % A1C 0.0-5.7 H ESTIMATED AVERAGE GLUCOSE (t est code = EAG) 140 MG/DLest COMPREHENSIVE METABOLIC [id number] 05:07:00* Test Item Value Reference Range Interpretation Comme nts SODIUM (test code = NA) 137 mmol/L 134-147 N POTASSIUM (test code = K) 3.5 mmol/L 3.4-5.0 N CHLORIDE (test code = CL) 105 mmol/L 100-108 N CARBON DIOXIDE (test code = CO2) 28 mmol/L 21-32 N ANION GAP (test code = GAP) 4.0 GAP calc 4.0-15.0 N GLUCOSE (test code = GLU) 100 MG/DL 70-110 N BLOOD UREA NITROGEN (test code = BUN) 10 MG/DL 7-18 N GLOMERULAR FILTRATION RATE (test code = GFR) >=60 max estimate estGFR >60 The Glomerular Filtration Rate is a calculated parameterbased on serum Creatinine, patient age and sex. GFR valuesless than 60 mL/min/1.73 square meters are indicative ofChronic Kidney Disease. Values less than 15 mL/min/1.73square meters indicate Kidney failure. The calculation forGFR is based on the CKD-EPI (2020) calculation. This formulais race indifferent and is the recommended formula for GFRby the National Kidney Foundation for Adults.The GFR will not calculate if the sex is unknown or if thepatient's age is <18 years. CREATININE (test code = CREAT) 0.9 MG/DL 0.6-1.0 N TOTAL PROTEIN (test code = PROT) 6.9 G/DL 6.4-8.2 N ALBUMIN (test code = ALB) 2.7 G/DL 3.4-5.0 L GLOBULIN (test code = GLOB) 4.2 GM/dL ALBUMIN/GLOBULIN RATIO (test code = A/G) 0.6 RATIO 1.2-2.2 L CALCIUM (test code = CA) 8.0 MG/DL 8.5-10.1 L BILIRUBIN TOTAL (test code = BILT) 0.30 MG/DL 0.2-1.2 N SGOT/AST (test code = AST) 18 Unit/L 15-37 N SGPT/ALT (test code = ALT) 25 Unit/L 12-78 N ALKALINE PHOSPHATASE TOTAL (test code = ALKP) 59 Unit/L 45-117 N GLUCOSE BEDSIDE [id number] 20:35:00* Test Item Value Reference Range Interpretation Comme nts GLUCOSE BEDSIDE TESTING (brooke t code = GLUBED) 86 mg/dL 70-110 N UA RFLX MICR CULT IF [id number] 17:51:00* Test Item Value Reference Range Interpretation Comme nts UA COLOR (test code = COLU) STRAW discript YEL/STRAW UA APPEARANCE (test code = APPU) CLOUDY discript CLEAR A UA GLUCOSE DIPSTICK (test code = DGLUU) NEGATIVE mg/dL NEG UA BILIRUBIN DIPSTICK (test code = BILU) NEGATIVE mg/dL NEG UA KETONE DIPSTICK (test code = KETU) TRACE mg/dL NEG UA SPECIFIC GRAVITY (test code = SGU) 1.015 SG 1.005-1.030 UA BLOOD DIPSTICK (test code = YAMIA) 1+ mg/DL NEG A UA PH DIPSTICK (test code = MICHAEL) 5.5 pH UNITS 5.0-7.0 UA PROTEIN DIPSTICK (test code = PROU) TRACE mg/dL NEG A UA UROBILINIOGEN DIPSTICK (test code = URO) 0.2 mg/dL <2.0 UA NITRITE DIPSTICK (test code = AMBROCIO) POSITIVE SCREEN NEG A UA LEUKOCYTE ESTERASE DIPSTICK (test code = LEUU) 2+ Leuk/mcL NEGATIVE A UA WBC (test code = WBCU) 30-40 #WBC/HPF 0-3 A UA RBC (test code = RBCU) 3-5 #RBC/HPF 0-3 A UA BACTERIA (test code = BACU) 2+ /HPF NONE-TRACE A UA SQUAMOUS CELLS (test code = SQU) 1+ /HPF NONE A UA CULTURE NEEDED? (test code = UACULT) YES,WBC>10 & EPI<25 Criteria Culture CHK Indication for culture: Suprapubic PainSOURCE OF URINE: CLEAN CATCH- CT ABD PELVIS [id number] 15:23:00 [facility] : 1980 Sex: F Name: EMIR BELLO [facility] : 1980 Age/S: 42 / F [id number] Unit #: [id number] Loc: [place] [address] Phys: Teddy Fernandez MD Acct: [id number] Dis Date: Status: REG ER PHONE #: [phone] Exam Date: 11/01/2022 2269 FAX #: Reason: abd pain EXAMS: CPT: [id number] CT ABD PELVIS W/CONT 15166 HISTORY: Chest pain, vomiting, urination difficulty, dysuria. CT chest, abdomen and pelvis, contrast enhanced. Reformatted sagittal and coronal images. COMPARISON: None Automated exposure control, iterative reconstruction technique, and/or adjustment of mA and/or kV according to patient's size was utilized for optimum radiation dose reduction. Following the intravenous administration of 100 ml of Isovue 300 but no oral contrast, a study of the chest, abdomen and pelvis was performed. CHEST FINDINGS:Normal aortic diameter. Good perfusion. Aortic arch vessels intact. Central pulmonary arteries normal. Heart size is normal but there is pericardial effusion measuring maximally at 1.8 cm posteriorly. Trace left pleural effusion seen. No axillary, hilar or mediastinal adenopathy can be found. The lungs appear to be well-inflated and clear. No infiltrates can be seen. Some basilar scarring on the left, mainly. Bronchial tree appropriate. ABDOMEN AND PELVIS FINDINGS: The portal venous images show mild fatty liver changes. Margins are smooth. No masslike densities. Gallbladder intact. Spleen normal. Pancreas intact with no ductal dilatation. The kidneys appear to be slightly asymmetric and perfusion. The lower pole of the right kidney with a dense, large calcification up to 18 mm in diameter. Cortical perfusion asymmetric likely nephritis. Edema around the renal pelvis seen in proximal ureter as well. The ureteral diameter distally appears to be intact. Gas bubbles are seen in the upper pole. PAGE 1 Signed Report (CONTINUED) Name: DAVID BELLO [facility] : 1980 Age/S: 42 / F [address] Unit #: [id number] Loc: [place] [address] Phys: Teddy Fernandez MD Acct: [id number] Dis Date: Status: REG ER PHONE #: [phone] Exam Date: 11/01/20221 FAX #: Reason: abd pain EXAMS: CPT: [id number] CT ABD PELVIS W/CONT 81978 (Continued) Left kidney does not show any focal inflammatory changes. The bladder contains gas bubbles that may support cystitis or infection as well. Correlate for recent catheterization. Normal aortic diameter. No retroperitoneal adenopathy. Bowel loop pattern with no obstructionor fluid accumulation. Appendix intact. The study of the pelvis shows uterus midline. No free fluid. No findings of inguinal hernia. Some diverticulosis changes seen at the sigmoid possibly. No evidence of bony destructive lesions. Spine with good alignment and well-maintained disc spaces. IMPRESSION: ABDOMEN AND PELVIS: Large 1.8 cm calculus in the lower pole of the right kidney with surroundinginfection/inflammatory changes. Gas bubbles likely represent gas-forming organism from infection. Some gas also present in the bladder, likely representing additional findings of infection. Left kidney intact. No acute bowel loop abnormality. CHEST with no evidence of infiltrate. Small to moderate pericardial effusion possibly trace left pleural effusion. No infiltrates. Location: U19 at 1523 Reported and signed by: Artur Steele PAGE 2 Signed Report (CONTINUED) Name: DAVID BELLO HQIRRO N [facility] : 1980 Age/S: 42 / F [id number] Unit #: [id number] Loc: [place] [address] Phys: Teddy Fernandez MD Acct: [id number] Dis Date: Status: REG ER PHONE #: [phone] Exam Date: 11/01/2022 1501 FAX #: Reason: abd pain EXAMS: CPT: [id number] CT ABD PELVIS W/CONT 57396 (Continued) CC: Javi Cuadra MD; Teddy Fernandez MD Technologist:Jay Chavez, RT,(R),(CT) CTDI: DLP: Trnscb Date/Time: 11/01/2022 (1523) [email or web address] Orig Print D/T: S: 11/01/2022 (1527) PAGE 3 Signed Report- CT CHEST W/[id number] 15:23:00 [facility] HQLONNIE Hernandez : 1980 Sex: F Name: EMIR BELLO HQLONNIE Hernandez [facility] : 1980 Age/S: 42 / F [address] Unit #: [id number] Loc: [place] [address] Phys: Teddy Fernandez MD Acct: [id number] Dis Date: Status: REG ER PHONE #: [phone] Exam Date: 11/01/2022 7339 FAX #: Reason: chest pain EXAMS: CPT: [id number] CT CHEST W/CONTRAST 18540 HISTORY: Chest pain, vomiting, urination difficulty, dysuria. CT chest, abdomen and pelvis, contrast enhanced. Reformatted sagittal and coronal images. COMPARISON: None Automated exposure control, iterative reconstruction technique, and/or adjustment of mAand/or kV according to patient's size was utilized for optimum radiation dose reduction. Followingthe intravenous administration of 100 ml of Isovue 300 but no oral contrast, a study of the chest, abdomen and pelvis was performed. CHEST FINDINGS:Normal aortic diameter. Good perfusion. Aortic archvessels intact. Central pulmonary arteries normal. Heart size is normal but there is pericardial effusion measuring maximally at 1.8 cm posteriorly. Trace left pleural effusion seen. No axillary, hilar or mediastinal adenopathy can be found. The lungs appear to be well- inflated and clear. No infiltrates can be seen. Some basilar scarring on the left, mainly. Bronchial tree appropriate. ABDOMEN AND PELVIS FINDINGS: The portal venous images show mild fatty liver changes. Margins are smooth. No mass like densities. Gallbladder intact. Spleen normal. Pancreas intact with no ductal dilatation. The kidneys appear to be slightly asymmetric and perfusion. The lower pole of the right kidney with a dense, large calcification up to 18 mm in diameter. Cortical perfusion asymmetric likely nephritis. Edema around the renal pelvis seen in proximal ureter as well. The ureteral diameter distally appears to be intact. Gas bubbles are seen in the upper pole. PAGE 1 Signed Report (CONTINUED) Name: DAVID BELLO [facility] : 1980 Age/S: 42 / F [address] Unit #: [id number] Loc: [place] [address] Phys: Teddy Fernandez MD Acct: [id number] Dis Date: Status: REG [facility] NE #: [phone] Exam Date: 11/01/2022 1501 FAX #: Reason: chest pain EXAMS: CPT: [id number] CT CHEST W/CONTRAST 10197 (Continued) Left kidney does not show any focal inflammatory changes. The bladder contains gas bubbles that may support cystitis or infection as well. Correlate for recent catheterization. Normal aortic diameter. No retroperitoneal adenopathy. Bowel loop pattern with no obstruction or fluid accumulation. Appendix intact. The study of the pelvis shows uterus midline. No free fluid. No findings of inguinal hernia. Some diverticulosis changes seen at the sigmoid possibly. No evidence of bony destructive lesions. Spine with good alignment and well-maintained disc spaces. IMPRESSION: ABDOMEN AND PELVIS: Large 1.8 cm calculus in the lower pole of the right kidney with surrounding infection/inflammatory changes. Gas bubbles likely represent gas-forming organism from infection. Some gas also present in the bladder, likely representing additional findings of infection. Left kidney intact. No acute bowel loop abnormality. CHEST with no evidence of infiltrate. Small to moderate pericardial effusion possibly trace left pleural effusion. No infiltrates. Location: U19 at 1523 Reported and signed by: Shaq Ramos M.D. PAGE 2 Signed Report (CONTINUED) Name: DAVID BELLO HQLONNIE [facility] 1980 Age/S: 42 / F [address] Unit #: [id number] Loc: [place] [address] Phys: Teddy Fernandez MD Acct: [id number] Dis Date: Status: REG ER PHONE #: [phone] Exam Date: 11/01/2022 1502 FAX #: Reason: chest pain EXAMS: CPT: [id number] CT CHEST W/CONTRAST 38202 (Continued) CC: Javi Cuadra MD; Teddy Fernandez MD Technologist:Jay Chavez, RT,(R),(CT) CTDI: DLP: Trnscb Date/Time: 11/01/2022 (1522) [email or web address] Orig Print D/T: S: 11/01/2022 (1526) PAGE 3 Signed Report- CT HEAD/BRAIN W/O [id number] 15:14:00 [facility] HQ[facility] N : 1980 Sex: F Name: EMIR BELLO HQIRRO N [facility] : 1980 Age/S: 42 / F [address] Unit #: [id number] Loc: [place] [address] Phys: Teddy Fernandez MD Acct: [id number] Dis Date: Status: REG ER PHONE #: [phone] Exam Date: 11/01/2022 1500 FAX #: Reason: dizziness not feeling well EXAMS: CPT: [id number] CT HEAD/BRAIN W/O CONT 53204 CLINICAL INFORMATION: Dizziness. Not feeling well. Dictation Location: A 1 COMPARISON: No prior. Technique: CT was done in the usual fashion. Sagittal and coronal reconstructions. Examination was performed according to the departmental dose optimization program which includes automated exposure control, adjustment of the mA and/or kVp according to patient size and/or use of interactive reconstruction technique. DLP 639 mGy-cm. Findings: No apparent intracranial hemorrhage or recent cortical ischemia. Brain density appears unremarkable. No hydrocephalus, atrophy, midline shift or mass effect. No apparent intracranial space-occupying mass or abnormal extra-axial fluid collection. The skull base and cranium appear intact. No focal scalp swelling is identified. The included paranasal sinuses and the middle ear cavities and mastoids appear clear. IMPRESSION: 1. No acute finding identified. 2. Otherwise unremarkable head CT. at 1514 Reported and signed by: Donavan Mcneill M.D. CC: Javi Cuadra MD; Teddy Fernandez MD Technologist:Jay Chavez, RT,(R),(CT) CTDI: DLP: Trnscb Date/Time: 11/01/2022 (1513) [email or web address].AGV Orig Print D/T: S: 11/01/2022 (8753)PAGE 1 Signed ReportHCG [id number] 13:04:00* Test Item Value Reference Range Interpretation Comme nts HCG SERUM (test code = HCG) < 1 mi-IU/ML 0-6 N 0 - 6 NOT PREGNA NT > 6 SUGGESTIVE OF EARLY RISES TWO FOLD EVERY 2 DAYS; SUGGEST RECONFIRMING AFTER 2 DAYS. 150,000-200,[address] TRIMESTER 10,000 - 50,000 2ND & 3RD TRIMESTER [id number] 10:48:00* Test Item Value Reference Range Interpretation Comme nts MAGNESIUM (test code = MAG) 2.3 MG/DL 1.8-2.4 N THYROID STIMULATING [id number] 10:48:00* Test Item Value Reference Range Interpretation Comme nts THYROID STIMULATING HORMONE (test code = TSH) 14.900 mcIU/ML 0.340-4.820 H BASIC METABOLIC [id number] 10:41:00* Test Item Value Reference Range Interpretation Comme nts SODIUM (test code = NA) 135 mmol/L 134-147 N POTASSIUM (test code = K) 3.6 mmol/L 3.4-5.0 N CHLORIDE (test code = CL) 101 mmol/L 100-108 N CARBON DIOXIDE (test code = CO2) 30 mmol/L 21-32 N ANION GAP (test code = GAP) 4.0 GAP calc 4.0-15.0 N GLUCOSE (test code = GLU) 148 MG/DL 70-110 H BLOOD UREA NITROGEN (test code = BUN) 16 MG/DL 7-18 N GLOMERULAR FILTRATION RATE (test code = GFR) 52 estGFR >60 L The Glomerular Filtration Rate is a calculated parameterbased on serum Creatinine, patient age and sex. GFR valuesless than 60 mL/min/1.73 square meters are indicative ofChronic Kidney Disease. Values less than 15 mL/min/1.73square meters indicate Kidney failure. The calculation forGFR is based on the CKD-EPI (2020) calculation. This formulais race indifferent and is the recommended formula for GFRby the National Kidney Foundation for Adults.The GFR will not calculate if the sex is unknown or if thepatient's age is <18 years. CREATININE (test code = CREAT) 1.3 MG/DL 0.6-1.0 H CALCIUM (test code = CA) 8.9 MG/DL 8.5-10.1 N CREATINE KINASE (CK)2022-11-01 10:41:00* Test Item Value Reference Range Interpretation Comme nts CREATINE KINASE (CK) (test c ode = CK) 105 Unit/L 26-192 N TROP-I HIGH [id number] 10:41:00* Test Item Value Reference Range Interpretation Comme nts TROP-I HIGH SENSITIVITY (test code = TROPIHS) 5.0 ng/L 0-54 N CAUTION: Units o f the current test methodology (ng/L) differfrom the prior test methodology (ng/mL) by a factor of 1000. 99th Percentile Upper Reference Limit (URL):Females: 54 ng/LMales: 79 ng/L In order to distinguish acute elevations of high sensitivitytroponin from other clinical conditions, the FourthUniversal Definition of Myocardial Infarction stressesclinical assessment and the demonstration of a rise and/orfall in serial troponin results above the URL. Results from different methodologies should not be comparedto one another as quantitative results and URLs may varyby method. PROTHROMBIN [id number] 10:23:00* Test Item Value Reference Range Interpretation Comme nts PT PATIENT (test code = PTP) 10.6 SECONDS 9.3-12.9 N INTERNATIONAL NORMAL RATIO (test code = INR) 0.96 INR Unit 0.8-1.2 N TARGET INR BY INDICATION Indication INR1. Prophylaxis of venous thrombosis 2.0 - 3.0 (orthopedic surgery), Prophylaxis of venous thrombosis (other than high-risk surgery), Treatment of Deep Vein Thrombosis/Pulmonary Embolism, Prevention of systemic embolism - Tissue heart valves, Acute Myocardial Infarction (to prevent systemic embolism), Valvular heart disease, Acute Myocardial Infarction (to prevent systemic embolism), Valvular heart disease, Atrial Fibrillation, Bileaflet mechanical valve in aortic position.2. Mechanical prosthetic valves (high risk), 2.5 - 3.5 Presence of Lupus Anticoagulant or Antiphospholipid Antibodies, Prevention of systemic embolism - Acute Myocardial Infarction (to prevent recurrent infarct). CBC W/O [id number] 10:08:00* Test Item Value Reference Range Interpretation Comme nts WHITE BLOOD CELL (test code = WBC) 5.0 K/mm3 3.5-11.0 N RED BLOOD CELL (test code = RBC) 4.89 M/mm3 4.70-6.10 N HEMOGLOBIN (test code = HGB) 12.4 G/DL 10.4-14.9 N HEMATOCRIT (test code = HCT) 39.3 % 31.5-44.1 N MEAN CELL VOLUME (test code = MCV) 80.4 Fl 84.5-98.6 L MEAN CELL HGB (test code = MCH) 25.4 pg 27.0-34.2 L MEAN CELL HGB CONCETRATION ( test code = MCHC) 31.6 G/DL 31.5-34.0 N RED CELL DISTRIBUTION WIDTH (test code = RDW) 14.3 SD 11.5-14.5 N PLATELET COUNT (test code = PLT) 322 K/mm3 150-450 N MEAN PLATELET VOLUME (test c ode = MPV) 11.00 fL 7.0-10.5 H - XR CHEST 1 [id number] 09:49:00 [facility] : 1980 Sex: F Name: EMIR BELLO [facility] : 1980 Age/S: 42 / F [address] [address] Unit #: [id number] Loc: [place] [address] Phys: Teddy Fernandez MD Acct: [id number] Dis Date: Status: REG ER PHONE #: [phone] Exam Date: 11/01/2022 0932 FAX #: Reason: chest pain EXAMS: CPT: [id number] XR CHEST 1 V 86715 Fluoro Time: DAP (Gy m2): Air Kerma (mGy): EXAMINATION: - XR CHEST 1 V HISTORY: Chest pain COMPARISON: Chest x-ray performed August 30, 2021 LOCATION CODE: C3 FINDINGS: Single frontal view of the chest is submitted for evaluation. The lungs are clear. The cardiac silhouette, mediastinum and pulmonary vasculature are unremarkable. The regional osseous structures are intact IMPRESSION: No acute radiographic abnormality Electronically Signed by Artur Pineda 11/01/2022 at 0949 Reported and signed by: Laverne Lee M.D. CC: Javi Cuadra MD; Garrett Fernandez MD PAGE 1 Signed Report Name: DAVID BELLO [facility] : 1980 Age/S: 42 / F [address] Unit #: [id number] Loc: [place] [address] Phys: Teddy Fernandez MDAcct: [id number] Dis Date: Status: REG ER PHONE #: [phone] Exam Date: 11/01/2022 0932 FAX #: Reason: chest pain EXAMS: CPT: [id number] XR CHEST 1 V 18485 Fluoro Time: DAP (Gy m2): Air Kerma (mGy): (Continued) Technologist: HANNA REDDING Trnscb Date/Time: 11/01/2022 (948) [email or web address] Orig Print D/T: S: 11/01/2022 (5250) PAGE [id number] 17:01:00* Test Item Value Reference Range Interpretation Comme nts FLUID SOURCE (test code = SOURCEFL) PERICARD FLUID COLOR (test code = COLFL) YELLOW YELLOW A FLUID APPEARANCE (test code = APPFL) CLEAR CLEAR FLUID WBC (test code = WBCFL) 409 /mm3 FLUID WBC REFERE NCE RANGE: Pleural, Peritoneal, and Peritoneal Dialysate: 0-100/rd7Lncmeehnenp : 0-300/ko8Lodckrsx: 0-150/mm3 ( <25% Neutophils) FLUID RBC (test code = RBCFL) 1000 /mm3 AFLUID RBC REFER ENCE RANGE: Pleural, Peritoneal, and Peritoneal Dialysate: 0/tp3Ebdpntqcdel: <25,000/mm3 Synovial: 0/mm3 PATHOLOGIST INTERPRETATION (test code = PATHPHLEB) 10-04-21. MESOTHELIAL CELLS PREDOMINATE, MANY WITH REACTIVE FEATURES. SMALL LYMPHOCYTES AND NEUTROPHILS GURPREET ECKERT MD MS FLUID POLYNUCLEAR (test code = POLYFL) 38 % The reference intervals are unavailable for this body fluiddifferential. FLUID LYMPHOCYTE (test code = LYMPHFL) 46 % FLUID MONONUCLEAR CELLS (test code = MONOFL) 16 % FLUID MESOTHELIAL (test code = MESFL) FEW NONE SEEN CSF HISTIOCYTE (test code = HISCSF) MANY % NONE SEEN SPEC COMMENTS: PERICARDIAL FLUIDFLUID [id number] 17:01:00* Test Item Value Reference Range Interpretation Comme nts FLUID PROTEIN (test code = PROTFL) 6.1 g/dL See_Comment : BODY FLUID TYPE : TOTAL PROTEIN : : : : : Amniotic Fluid : <0.4 : : : : : : Nonmalignant: <3.0 : : Ascitic Fluid : Malignant: >3.0 : : : : : Bile, Clear : <0.9 : : : : : Bile, Yellow : 0.2 - 0.6 : : : : : Lymph : 2.2 - 6.0 : : : : : Human Milk : 1.9 - 2.0 : : : : : Nasal Secretion : 0.1 - 3.5 : : : : : Pancreatic : 0.0 - 0.1 : : Juice : (post stimulation) : : : : : : Transudate: <0.3 : : Pleural Fluid : Exudate: >0.3 : : : : : Saliva : 0.1 - 0.2 : : (Mixed Glands) : : : : : : Synovial Fluid : <2.5 : : : : : Tears : 0.8 - 0.9 : : : : Yamilka W, Vazquez Thrasher. Reference Intervals for Adults and Children 2008. Ninth Edition (V9.1) [facility] [facility], [facility]; [place]: September 2008.The method performance specifications have not beenestablished for this test in body fluid. The test resultshould be integrated into the clinical context forinterpretation.Performe d At: [facility] [id number] [place], [place] [id number] Gregg Duckworth MD Ph:[phone] [Automated message] The system which generated this result transmitted reference range: (). The reference range was not used to interpret this result as normal/abnormal. SPEC COMMENTS: PERICARDIAL FLUIDCYTOLOGY NON [id number] 15:07:00* Test Item Value Reference Range Interpretation Comme nts CYTOLOGY NON ROLL PANNER (test code = CR) RUN DATE: 10/04/21 [facility] - LAB PAGE 1 RUN TIME: 1507 Specimen Inquiry RUN USER: INTERFACE RICHARD ENT: KAMRAN BELLO LOC: [facility] U #: [id number] AGE/SX: 41/F ROOM: [facility] RE09/28/21REG DR: Ron Tipton MD : 78 BED: A DIS: 09/29/21 STATUS: DIS IN TLOC: SPEC #: [id number] RECD: 10/02/21 STATUS: BECKIE REChong #: [id number] DEVONTE: 09/29/[address] [facility] [address]: Ron Tipton MD ENTERED: 10/02/21 SP TYPE: CYTO NGYN AMISHA DR: Self Referred Jasper Hurst MD Undefined ProviderORDERED: 39266/2, ANATOMIC SPEC HISTOLOGY: TISSUE ID BLK PCS BARBRA LEV / PROCEDURE DISPOSITION ____ ___ ___ ___ ___ PERFL A 1 3 TISSUES: A. PERICARDIAL FLUID - Pericardium FINAL DIAGNOSIS PERICARDIUM, PERICARDIOCENTESIS: Mesotheliall cells. Reactive mesothelial cells. Ocassional small lymphocytes. Rare neutrophiles. No malignant cells seen. GROSS DESCRIPTION Received are 10 mL of yellow fluid. 10 mL are sent to [facility] for cytospins. SHIRLEY/jerad Technical component performed at [facility] [facility], [facility], [address] MICROSCOPIC DESCRIPTION Performed. CLINICAL INFORMATION Pericardial Effusion ---- Signed SIGNATURE ON FILE Gurpreet Eckert 10/04/21 1507 END OF REPORT FLUID [id number] 19:52:00* Test Item Value Reference Range Interpretation Comme nts FLUID GLUCOSE (test code = GLUFL) 90 MG/DL Please refer to the following specimen for additional labresults. : BODY FLUID TYPE : GLUCOSE : : : : : Amniotic Fluid : 45 - 76 : : : : : Bile, Clear : < 5 : : : : : Bile, Yellow : < 8 : : : : : Lymph : 48 - 200 : : : : : Nasal Secretion : < 10 : : : : : Pleural Fluid : 65 - 99 : : : : : Saliva : < 2 : : (Mixed Glands) : : : : : : Sweat : < 7 : : : : : Synovial Fluid : 65 - 99 : : : : : Tears : 76 - 288 : : : : Vazquez Diaz V. Reference Intervals for Adults and Children 2007. Ninth edition (V9.1) [facility]; [place]: September 2008.Please refer to [phone] for testing.10/03/2021 FLUID [id number] 19:52:00* Test Item Value Reference Range Interpretation Comme nts FLUID LDH (test code = LDHFL) 235 IUNITS/L Please refer to the following specimen for additional labresults. : BODY FLUID TYPE : LDH : : :___ : : : Nonmalignant: < 60% : : : of the serum LDH : : Ascitic Fluid : Malignant: > 60% : : : of the serum LDH : : :____ : : Gastric Juice : < 35 : : :____ : : : Transudate: <200 : : Pleural Fluid : Exudate: >200 : : :____ : : Saliva : 113 - 609 : : (Mixed Glands) : : : :____ : : Synovial Fluid : <240 : : :____ : Vazquez Diaz V. Reference Intervals for Adults and Children 2008. Ninth Edition (V9.1) [facility], [facility]; [place]: September 2008.Please refer to [phone] for testing.10/03/2021 [id number] 20:58:00* Test Item Value Reference Range Interpretation Comme nts GLUBED (test code = GLUBED) 153 MG/DL 70-105 H - XR CHEST 2 [id number] 19:11:00 [facility] : 1980 Sex: FPatient Name: KAMRAN BELLO Unit No: [id number] EXAMS: CPT CODE: [id number] XR CHEST 2 V 53841 Location code: H5 Chest two views frontal and lateral Indication: PNEUMOTHORAX . Comparison: 09/28/2021 Findings: The heart and mediastinum are not remarkable. Costophrenic angles are clear. Linear atelectasis at the left base Bone is unremarkable for age. Impression: 1. No radiographic evidence ofacute cardiopulmonary disease. No evidence of pneumothorax at 1911 Reported and signed by: PAUL GUZMÁN M.D. CC: Ron Tipton MD Technologist: Korin Hancock Time: DAP (Gy m2): Air Kerma (mGy): Trscr Dt/Tm: 09/29/2021 (1910) by:[email or web address] Printed Date/Time: 09/29/2021 (1913) Name: KAMRAN BELLO [facility] Phys: Ron Paula MD [address] : 1980 Age: 41 Sex: [place] [address] Loc: P.[id number] A Exam Date: 09/29/2021 Status: ADM IN PH: FAX: PAGE 1 Signed ReportCOMPREHENSIVE METABOLIC PANEL 2021-09-29 18:09:00* Test Item Value Reference Range Interpretation Comme nts SODIUM (test code = NA) 140 mmol/L 136-145 N Please note: New Reference Range Apr 2020 POTASSIUM (test code = K) 3.5 mmol/L 3.5-5.1 N CHLORIDE (test code = CL) 106 mmol/L 98-107 N Please note: New Reference Range Apr 2020 CARBON DIOXIDE (test code = CO2) 28 mmol/L 20-31 N Please note: N ew Reference Range Apr 2020 GLUCOSE (test code = GLU) 84 mg/dL 74-106 N Please note: New Reference Range Apr 2020 BLOOD UREA NITROGEN (test code = BUN) 6 mg/dL 9-23 L Please note: N ew Reference Range Apr 2020 GLOMERULAR FILTRATION RATE (test code = GFR) >=60 max estimate mL/min >60 Units are mL/min/1.73m2 The estimated glomerular filtration rate is computed usingpatient race, age (>18), sex, and serum creatinine. If anyof the needed data elements are missing the Laboratory cannot compute an estimation of the glomerular filtration rate. CREATININE (test code = CREAT) 0.80 mg/dL 0.55-1.02 N Please note: New Reference Range Apr 2020 TOTAL PROTEIN (test code = PROT) 7.8 g/dL 5.7-8.2 N Please note: New Reference Range Apr 2020 ALBUMIN (test code = ALB) 4.2 g/dL 3.2-4.8 N Please note: New Reference Range Apr 2020 CALCIUM (test code = CA) 7.5 mg/dL 8.7-10.4 L Please note: New Reference Range Apr 2020 BILIRUBIN TOTAL (test code = BILT) 0.7 mg/dL 0.3-1.2 N Please note: New Reference Range Apr 2020 SGOT/AST (test code = AST) 15 U/L <34 N Please note: New Reference Range Apr 2020 SGPT/ALT (test code = ALT) < 7 U/L 10-49 L Please note: New Reference Range Apr 2020 ALKALINE PHOSPHATASE (test code = ALKP) 86 U/L 46-116 N Please note: New Reference Range Apr 2020 CBC W/AUTO [id number] 17:35:00* Test Item Value Reference Range Interpretation Comme nts WHITE BLOOD CELL (test code = WBC) 3.1 x10 3/uL 4.8-10.8 L RED BLOOD CELL (test code = RBC) 4.14 x10 6/uL 4.20-5.40 L HEMOGLOBIN (test code = HGB) 11.8 g/dL 12.0-16.0 L HEMATOCRIT (test code = HCT) 36.6 % 37.0-47.0 L MEAN CELL VOLUME (test code = MCV) 88.4 fL 81.0-99.0 N MEAN CELL HGB (test code = MCH) 28.5 pg 27-31 N MEAN CELL HGB CONCENTRATION (test code = MCHC) 32.2 G/DL 33-36.5 L RED CELL DISTRIBUTION WIDTH (test code = RDW) 14.9 % 12.9-16.9 N PLATELET COUNT (test code = PLT) 233 x10 3/uL 150-440 N MEAN PLATELET VOLUME (test c ode = MPV) 11.3 fL 8.9-12.4 N NEUTROPHIL % (test code = NT%) 32.0 % 42.2-75.2 L LYMPHOCYTE % (test code = LY%) 57.5 % 20.5-51.1 H MONOCYTE % (test code = MO%) 7.3 % 1.7-9.3 N EOSINOPHIL % (test code = EO%) 1.9 % 0.0-7.0 N BASOPHIL % (test code = BA%) 1.3 % 0-2.5 N NEUTROPHIL # (test code = NT#) 1.00 x10 3/uL 1.80-7.70 L LYMPHOCYTE # (test code = LY#) 1.80 x10 3/uL 1.00-4.80 N MONOCYTE # (test code = MO#) 0.23 x10 3/uL 0.00-0.80 N EOSINOPHIL # (test code = EO#) 0.06 x10 3/uL 0.00-0.45 N BASOPHIL # (test code = BA#) 0.04 x10 3/uL 0.0-0.20 N RETIC [id number] 17:35:00* Test Item Value Reference Range Interpretation Comme nts RETIC CT AUTOMATED (test cod e = RETICA) 1.45 % 0.50-1.[address] ABSOLUTE (test code = RET#) 60.00 x10 3/uL 20.00-90.00 N [id number] 17:28:00* Test Item Value Reference Range Interpretation Comme nts GLUBED (test code = GLUBED) 91 MG/DL 70-105 N UR HCG [id number] 13:27:00* Test Item Value Reference Range Interpretation Comme nts UR HCG QUAL (test code = HCGQLU) NEGATIVE NEGATIVE [id number] 06:52:00* Test Item Value Reference Range Interpretation Comme nts TROPONIN-I (test code = TROPI) < 2.5 pg/mL 27.36-66.23 L Please note: Uni ts and Reference Range have changedFeb 2020 [id number] 04:27:00* Test Item Value Reference Range Interpretation Comme nts TROPONIN-I (test code = TROPI) < 2.5 pg/mL 27.36-66.23 L Please note: Uni ts and Reference Range have changedFeb 2020 COMPREHENSIVE METABOLIC [id number] 04:25:00* Test Item Value Reference Range Interpretation Comme nts SODIUM (test code = NA) 139 mmol/L 136-145 N Please note: New Reference Range Apr 2020 POTASSIUM (test code = K) 3.4 mmol/L 3.5-5.1 L CHLORIDE (test code = CL) 104 mmol/L 98-107 N Please note: New Reference Range Apr 2020 CARBON DIOXIDE (test code = CO2) 30 mmol/L 20-31 N Please note: N ew Reference Range Apr 2020 GLUCOSE (test code = GLU) 96 mg/dL 74-106 N Please note: New Reference Range Apr 2020 BLOOD UREA NITROGEN (test code = BUN) 9 mg/dL 9-23 N Please note: N ew Reference Range Apr 2020 GLOMERULAR FILTRATION RATE (test code = GFR) >=60 max estimate mL/min >60 Units are mL/min/1.73m2 The estimated glomerular filtration rate is computed usingpatient race, age (>18), sex, and serum creatinine. If anyof the needed data elements are missing the Laboratory cannot compute an estimation of the glomerular filtration rate. CREATININE (test code = CREAT) 1.10 mg/dL 0.55-1.02 H Please note: New Reference Range Apr 2020 TOTAL PROTEIN (test code = PROT) 7.5 g/dL 5.7-8.2 N Please note: New Reference Range Apr 2020 ALBUMIN (test code = ALB) 4.1 g/dL 3.2-4.8 N Please note: New Reference Range Apr 2020 CALCIUM (test code = CA) 7.7 mg/dL 8.7-10.4 L Please note: New Reference Range Apr 2020 BILIRUBIN TOTAL (test code = BILT) 0.5 mg/dL 0.3-1.2 N Please note: New Reference Range Apr 2020 SGOT/AST (test code = AST) 14 U/L <34 N Please note: New Reference Range Apr 2020 SGPT/ALT (test code = ALT) < 7 U/L 10-49 L Please note: New Reference Range Apr 2020 ALKALINE PHOSPHATASE (test code = ALKP) 81 U/L 46-116 N Please note: New Reference Range Apr 2020 [id number] 04:25:00* Test Item Value Reference Range Interpretation Comme nts MAGNESIUM (test code = MAG) 2.1 mg/dL 1.6-2.6 N Please note: New Reference Range Apr 2020 CBC W/AUTO [id number] 03:40:00* Test Item Value Reference Range Interpretation Comme nts WHITE BLOOD CELL (test code = WBC) 3.9 x10 3/uL 4.8-10.8 L RED BLOOD CELL (test code = RBC) 3.55 x10 6/uL 4.20-5.40 L HEMOGLOBIN (test code = HGB) 10.4 g/dL 12.0-16.0 L HEMATOCRIT (test code = HCT) 31.5 % 37.0-47.0 L MEAN CELL VOLUME (test code = MCV) 88.7 fL 81.0-99.0 N MEAN CELL HGB (test code = MCH) 29.3 pg 27-31 N MEAN CELL HGB CONCENTRATION (test code = MCHC) 33.0 G/DL 33-36.5 N RED CELL DISTRIBUTION WIDTH (test code = RDW) 14.8 % 12.9-16.9 N PLATELET COUNT (test code = PLT) 208 x10 3/uL 150-440 N MEAN PLATELET VOLUME (test c ode = MPV) 11.4 fL 8.9-12.4 N NEUTROPHIL % (test code = NT%) 39.3 % 42.2-75.2 L LYMPHOCYTE % (test code = LY%) 51.4 % 20.5-51.1 H MONOCYTE % (test code = MO%) 7.5 % 1.7-9.3 N EOSINOPHIL % (test code = EO%) 1.0 % 0.0-7.0 N BASOPHIL % (test code = BA%) 0.8 % 0-2.5 N NEUTROPHIL # (test code = NT#) 1.53 x10 3/uL 1.80-7.70 L LYMPHOCYTE # (test code = LY#) 2.00 x10 3/uL 1.00-4.80 N MONOCYTE # (test code = MO#) 0.29 x10 3/uL 0.00-0.80 N EOSINOPHIL # (test code = EO#) 0.04 x10 3/uL 0.00-0.45 N BASOPHIL # (test code = BA#) 0.03 x10 3/uL 0.0-0.20 N COVID 19 INHOUSE [id number] 23:48:00* Test Item Value Reference Range Interpretation Comme nts COVID 19 INHOUSE AG (test code = [id number]) NEGATIVE NEGATIVE Negative results , from patients with symptom onset beyondfive days, should be treated as presumptive and confirmationwith a molecular assay, if necessary for patientmanagement, may be performed. Negative results do not ruleout COVID-19 and should not be used as the sole basis fortreatment or patient management decisions, includinginfection control decisions. Negative results should beconsidered in the context of a patient's recent exposures,history and the presence of clinical signs and symptomsconsistent with COVID-19. B-TYPE NATRIURETIC [id number] 23:47:00* Test Item Value Reference Range Interpretation Comme nts B-TYPE NATRIURETIC PEPTIDE ( test code = BNP) 54 pg/mL <100 N [id number] 23:43:00* Test Item Value Reference Range Interpretation Comme nts TROPONIN-I (test code = TROPI) < 2.5 pg/mL 27.36-66.23 L Please note: Uni ts and Reference Range have changedApr 27, 2020 BASIC METABOLIC [id number] 23:40:00* Test Item Value Reference Range Interpretation Comme nts SODIUM (test code = NA) 138 mmol/L 136-145 N Please note: New Reference Range Apr 2020 POTASSIUM (test code = K) 3.3 mmol/L 3.5-5.1 L CHLORIDE (test code = CL) 102 mmol/L 98-107 N Please note: New Reference Range Apr 2020 CARBON DIOXIDE (test code = CO2) 31 mmol/L 20-31 N Please note: N ew Reference Range Apr 2020 GLUCOSE (test code = GLU) 127 mg/dL 74-106 H Please note: New Reference Range Apr 2020 BLOOD UREA NITROGEN (test code = BUN) 10 mg/dL 9-23 N Please note: New Reference Range Apr 2020 GLOMERULAR FILTRATION RATE (test code = GFR) >=60 max estimate mL/min >60 Units are mL/min/1.73m2 The estimated glomerular filtration rate is computed usingpatient race, age (>18), sex, and serum creatinine. If anyof the needed data elements are missing the Laboratory cannot compute an estimation of the glomerular filtration rate. CREATININE (test code = CREAT) 1.00 mg/dL 0.55-1.02 N Please note: New Reference Range Apr 2020 CALCIUM (test code = CA) 7.6 mg/dL 8.7-10.4 L Please note: New Reference Range Apr 2020 - XR CHEST 1 [id number] 23:38:00 [facility]OG[facility]ello : 1980 Sex: FPatient Name: KAMRAN BELLO Unit No: [id number] EXAMS: CPT CODE: [id number] XR CHEST 1 V 96098LSBT: - XR CHEST 1 V COMPARISON: None LOCATION: H57 HISTORY: 41 years-old Female with Chest Pain TECHNIQUE: Single AP view of the chest. FINDINGS: Enlarged globular contour of the cardiac silhouette. The lungs are well aerated. No large pneumothorax or pleural effusion. Osseous structures and softtissues demonstrate no acute findings. The visualized upper abdomen is unremarkable. IMPRESSION: Enlarged globular contour of the cardiac silhouette is suggestive of large pericardial effusion. at 2338 Reported and signed by: YOSEF GODWIN M.D. CC: Avila Nath MD Technologist: Korin Hancock Time: DAP (Gy m2): Air Kerma (mGy): Trscr Dt/Tm: 09/28/2021 (2888) by:[email or web address] Printed Date/Time: 09/28/2021 (0853) Name: KAMRAN BELLO [facility] Phys: Avila Slater MD [address] : 1980 Age: 41 Sex: [place] [address] Loc: ILA 1 Exam Date: 09/28/2021 Status: ADM IN PH: FAX: PAGE 1 Signed ReportCBC W/AUTO [id number] 23:33:00* Test Item Value Reference Range Interpretation Comme nts WHITE BLOOD CELL (test code = WBC) 3.6 x10 3/uL 4.8-10.8 L RED BLOOD CELL (test code = RBC) 3.75 x10 6/uL 4.20-5.40 L HEMOGLOBIN (test code = HGB) 10.8 g/dL 12.0-16.0 L HEMATOCRIT (test code = HCT) 33.6 % 37.0-47.0 L MEAN CELL VOLUME (test code = MCV) 89.6 fL 81.0-99.0 N MEAN CELL HGB (test code = MCH) 28.8 pg 27-31 N MEAN CELL HGB CONCENTRATION (test code = MCHC) 32.1 G/DL 33-36.5 L RED CELL DISTRIBUTION WIDTH (test code = RDW) 14.9 % 12.9-16.9 N PLATELET COUNT (test code = PLT) 210 x10 3/uL 150-440 N MEAN PLATELET VOLUME (test c ode = MPV) 11.3 fL 8.9-12.4 N NEUTROPHIL % (test code = NT%) 35.2 % 42.2-75.2 L LYMPHOCYTE % (test code = LY%) 52.9 % 20.5-51.1 H MONOCYTE % (test code = MO%) 8.3 % 1.7-9.3 N EOSINOPHIL % (test code = EO%) 2.5 % 0.0-7.0 N BASOPHIL % (test code = BA%) 1.1 % 0-2.5 N NEUTROPHIL # (test code = NT#) 1.27 x10 3/uL 1.80-7.70 L LYMPHOCYTE # (test code = LY#) 1.91 x10 3/uL 1.00-4.80 N MONOCYTE # (test code = MO#) 0.30 x10 3/uL 0.00-0.80 N EOSINOPHIL # (test code = EO#) 0.09 x10 3/uL 0.00-0.45 N BASOPHIL # (test code = BA#) 0.04 x10 3/uL 0.0-0.20 N - XR CHEST 2 [id number] 00:00:00 [facility] BELL[facility]US HQLONNIE Hernandez : 1980 Sex: F Patient Name: JAQUAN BELLORILEY Hernandez Unit No: [id number] EXAMS: CPT CODE: [id number] XR CHEST 2 V 03931 PROCEDURE INFORMATION: Exam: XR Chest Exam date and time: 08/30/2021 11:27 PM Age: 41 years old Clinical indication: Abnormal findings; Other: Pericardial effusion on CT a/p TECHNIQUE: Imaging protocol: XR of the chest. Views: 2 views. PA and Lateral COMPARISON: CT ABD PELVIS W/O CONT 08/30/2021 10:05 PM FINDINGS: Lungs: There is left retrocardiac atelectasis. The right lung is grossly clear. Pleural spaces: No pleural effusion or pneumothorax are visible. Heart/Mediastinum: The cardiac silhouette is enlarged. Pulmonary vasculature is grossly within normal limits. Bones/joints: No acute bony abnormalities are seen. IMPRESSION: Cardiomegaly. The concurrent CT abdomen/pelvis demonstrates large pericardial effusion. at 0001 Reported and signed by: Donnie García MD CC: Robyn Henry MD Technologist: David Goldman RT Trnscrbd D/ (0001) GCD.CPS Orig Print D/T: S: 08/31/2021 (0001) [facility] NAME: ACEJAQUANRILEY HQIRRO N Radiology Department PHYS: Robyn Dahl MD [address] : 1980 AGE: 41 SEX: F [place], [place] [address] LOC: [facility] PHONE#: [phone] EXAM DATE: 08/30/2021 STATUS: REG ER FAX #: [phone] RAD NO: Page 1 Signed ReportB- TYPE NATRIURETIC [id number] 23:45:00* Test Item Value Reference Range Interpretation Comme nts B-TYPE NATRIURETIC PEPTIDE ( test code = BNP) 19.57 pg/mL 0-100 N [id number] 23:31:00* Test Item Value Reference Range Interpretation Comme nts TROPONIN-I (test code = TROPI) 5.6 pg/mL <51.4 N Please Note:New method is in use for measuring Troponin Mar 09 2021Units are pg/mL which differs from the prior testmethodology (ng/mL) by a factor of 1000. COMPREHENSIVE METABOLIC [id number] 22:02:00* Test Item Value Reference Range Interpretation Comme nts SODIUM (test code = NA) 129 mEq/L 135-145 L POTASSIUM (test code = K) 3.1 mEq/L 3.5-5.0 L CHLORIDE (test code = CL) 93 mEq/L 100-115 L CARBON DIOXIDE (test code = CO2) 29 mEq/L 22-31 N ANION GAP (test code = GAP) 10.30 10-20 N GLUCOSE (test code = GLU) 127 mg/dL 65-110 H BLOOD UREA NITROGEN (test co de = BUN) 6 mg/dL 7-18 L GLOMERULAR FILTRATION RATE ( test code = GFR) 46 ml/min >60 L CREATININE (test code = CREAT) 1.4 mg/dL 0.5-1.0 H TOTAL PROTEIN (test code = PROT) 8.5 gm/dL 6.3-8.2 H ALBUMIN (test code = ALB) 3.2 gm/dL 3.4-4.8 L CALCIUM (test code = CA) 7.7 mg/dL 8.4-10.2 L BILIRUBIN TOTAL (test code = BILT) 1.2 mg/dL 0.2-1.0 H SGOT/AST (test code = AST) 48 units/L 15-37 H SGPT/ALT (test code = ALT) 45 units/L 12-78 N ALKALINE PHOSPHATASE TOTAL ( test code = ALKP) 171 units/L 46-116 H CBC W/AUTO [id number] 21:53:00* Test Item Value Reference Range Interpretation Comme nts WHITE BLOOD CELL (test code = WBC) 14.3 K/mm3 6.5-12.3 H RED BLOOD CELL (test code = RBC) 4.16 M/mm3 3.51-4.69 N HEMOGLOBIN (test code = HGB) 11.9 g/dL 10.1-13.8 N HEMATOCRIT (test code = HCT) 35.7 % 32.5-41.8 N MEAN CELL VOLUME (test code = MCV) 85.8 fL 84.6-96.6 N MEAN CELL HGB (test code = MCH) 28.6 pg 27.3-33.9 N MEAN CELL HGB CONCETRATION ( test code = MCHC) 33.3 gm/dL 32.0-34.2 N RED CELL DISTRIBUTION WIDTH (test code = RDW) 13.2 % 12.2-16.3 N PLATELET COUNT (test code = PLT) 346 K/mm3 134-363 N MEAN PLATELET VOLUME (test c ode = MPV) 10.6 fL 9.2-12.7 N NEUTROPHIL % (test code = NT%) 75.6 % 57.9-77.3 N LYMPHOCYTE % (test code = LY%) 13.9 % 14.5-29.7 L MONOCYTE % (test code = MO%) 9.0 % 3.6-10.2 N EOSINOPHIL % (test code = EO%) 0.1 % 0.0-3.0 N BASOPHIL % (test code = BA%) 0.3 % 0.1-0.9 N NEUTROPHIL # (test code = NT#) 10.8 K/mm3 LYMPHOCYTE # (test code = LY#) 2.0 K/mm3 MONOCYTE # (test code = MO#) 1.3 K/mm3 EOSINOPHIL # (test code = EO#) 0.01 K/mm3 BASOPHIL # (test code = BA#) 0.0 K/mm3 RBC MORPHOLOGY REQUIRED (brooke t code = RBCM) NORMAL NORMAL PLATELET MORPHOLOGY REQUIRED (test code = PLTMR) NORMAL NORMAL UA RFLX MICR CULT IF [id number] 20:40:00* Test Item Value Reference Range Interpretation Comme nts UA COLOR (test code = COLU) YELLOW YELLOW UA APPEARANCE (test code = APPU) HAZY CLEAR UA GLUCOSE DIPSTICK (test code = DGLUU) NEGATIVE NEGATIVE UA BILIRUBIN DIPSTICK (test code = BILU) 1+ NEGATIVE UA KETONE DIPSTICK (test code = KETU) NEGATIVE NEGATIVE UA SPECIFIC GRAVITY (test code = SGU) 1.015 1.001-1.035 N UA BLOOD DIPSTICK (test code = YAIMA) 3+ NEGATIVE A UA PH DIPSTICK (test code = MICHAEL) 6.0 5-9 UA PROTEIN DIPSTICK (test code = PROU) 2+ NEGATIVE UA UROBILINIOGEN DIPSTICK (test code = URO) 2.0 EU/dL See_Comment A [Automated message] The system which generated this result transmitted reference range: <=1.0. The reference range was not used to interpret this result as normal/abnormal. UA NITRITE DIPSTICK (test code = AMBROCIO) NEGATIVE NEGATIVE UA LEUKOCYTE ESTERASE DIPSTICK (test code = LEUU) 3+ NEGATIVE A UA WBC (test code = WBCU) TOO NUMEROUS TO CNT #/hpf NONE SEEN A UA EPITHELIAL CELLS (test code = EPIU) FEW #/HPF RARE-FEW UA RBC (test code = RBCU) 31-40 #/hpf NONE SEEN A UA BACTERIA (test code = BACU) MODERATE /HPF RARE-FEW A UA MUCUS (test code = MUCU) RARE NONE SEEN Indication for culture: Dysuria/FrequencySpecimen Description: CLEAN CATCHUR HCG [id number] 20:40:00* Test Item Value Reference Range Interpretation Comme nts UR HCG QUAL (test code = HCGQLU) NEGATIVE 1. Very dilute u rine specimens, as indicated by a lowspecific gravity, may not contain patient services representative levels ofhCG. 2. False negative results may occur when the levels of hCGare below the sensitivity level of the test. If is still suspected, a first morningurine specimen should be collected 48 hours later andtested. Indication for culture: Dysuria/FrequencySpecimen Description: CLEAN CATCH- CT ABD PELVIS W/O [id number] 00:00:00 [facility] N : 1980 Sex: F Patient Name: DAVID BELLO HQIRRO David Unit No: [id number] EXAMS: CPT CODE: [id number] CT ABD PELVIS W/O CONT 24804 Radiation Dose CTDIVOL = 11.72 (mGy): DLP = 582.49 (mGy- cm) PROCEDURE INFORMATION: Exam: CT Abdomen And Pelvis Without Contrast Exam date and time: 08/30/2021 10:05 PM Age: 41 years old Clinical indication: Abdominal pain; Generalized; Additional info: R flank pain, h/o kidney stones. Dysuria. TECHNIQUE: Imaging protocol: Computed tomography of the abdomen and pelvis without contrast. Radiation optimization: All CT scans at this facility use at least one of these dose optimization techniques: automated exposure control; mA and/or kV adjustment per patient size (includes targeted exams where dose is matched to clinical indication); or iterative reconstruction. COMPAR ISMAEL: No relevant prior studies available. RADIATION DOSE METRICS: CTDI volume (mGy): 11.72 Total DLP (mGy-cm): 582.49 FINDINGS: Heart: Moderate to large pericardial effusion partially included in the field of view measuring up to 3.5 cm thickness. [id number] bibasilar dependent atelectasis present with possible miniscule pleural fluid. Liver: Normal for non-contrast exam. Gallbladder and bile ducts: Normal. No calcified stones. No ductal dilation. Pancreas: Normal. No ductal dilation. Spleen: Normal. No splenomegaly. Adrenal glands: Normal. No mass. Kidneys and ureters: Faint patchy calcifications within both kidneys consistent with nephrocalcinosis. Nonobstructing right renal lower pole calculus measures 13 mm. No overt hydronephrosis appreciated bilaterally. Ureters are unable george followed in the entirety. Bilateral pelvic soft tissue calcifications are present measuring 5 mmon the right and 2 mm on the left. [facility] NAME: ACEDAVID Hernandez Radiology Department PHYS: Robyn Dahl MD [address] : 1980 AGE: 41 SEX: F [place], [place] [address] LOC: TONIA PHONE #: [phone] EXAM DATE: 08/30/2021 STATUS: REG ER FAX #: [phone] RAD NO: Page 1 Signed Report 1 Patient Name: JAQUAN BELLORILEY HQIRRRavi Hernandez Unit No: [id number] EXAMS: CPT CODE: [id number] CT ABD PELVIS W/O CONT 76069 (Continued) Stomach and bowel: No abnormally dilated small or large bowel loops are seen. Colonic diverticulosis present.Appendix: No evidence of appendicitis. Intraperitoneal space: Right lower quadrant fatty injection present. No free abdominal air. Trace free pelvic fluid likely within physiologic limits. Vasculature: Abdominal aorta is normal in caliber. Lymph nodes: Subcentimeter short axis lymph nodes present. Urinary bladder: Urinary bladder is nearly empty. Reproductive: Unremarkable as visualized. Bones/joints: No suspicious osseous abnormality identified. Soft tissues: No significant abnormality. IMPRESSION: 1. Findings consistent with nephrocalcinosis with nonobstructing right renal calculus. 2. The ureters are not able to be followed in their entirety. Bilateral pelvic soft tissue calcifications are seen. Nonobstructing distal right ureteral calculus cannot be completely excluded. 3. Nonspecificfatty injection/inflammation in the right lower quadrant. Recently passed calculus, ascending urinary tract infection, gonadal vein thrombosis, and other inflammatory processes can be considered. 4. Colonic diverticulosis. 5. Large pericardial effusion. Electronically Signed by Darius Berkowitz 08/30/2021 at 2245 Reported and signed by: Darius Noonan MD CC: Robyn Henry MD Technologist: RT Mani CTDI: DLP: Trnscrbd D/ (2245) GCD.MACIEL [facility] NAME: MIRELLA BELLOGUS Hernandez Radiology Department PHYS: Robyn Dahl MD[address] : 1980 AGE: 41 SEX: F [place], [place] [address] LOC: HelenERS PHONE #: [phone] EXAM DATE: 08/30/2021 STATUS: REG ER FAX #: [phone] RAD NO: Page 2 Signed Report 1 Patient Name: EMIR BELLO SHADI Hernandez Unit No: [id number] EXAMS: CPT CODE: [id number] CT ABD PELVIS W/O CONT 26876 (Continued) Orig Print D/T: S: 08/30/2021 (2246) [facility] NAME: JAQUAN BELLORILEY Hernandez Radiology Department PHYS: Robyn Dahl MD [address] : 1980 AGE: 41 SEX: F [place] [address] LOC: TONIA PHONE #:[phone] EXAM DATE: 08/30/2021 STATUS: REG ER FAX #: [phone] RAD NO: Page 3 Signed Report1 Notes Date/Time Note Provider Source 2023-05-15 04:07:00 [id number] qZaRFMmqRoP/9yhmSCfBou/15DT5B m2d7j7g8vAsIxqDtgx5TgApnjIH6267-76-29E99:07:00 [facility] PROVID[facility] REPORTREPORT#:[id number] REPORT STATUS: SignedDATE:05/15/23 TIME:0407 PATIENT: DAVID BELLOO NICOLUNIT #: [id number]#: [id number] ROOM/BED:: 79 AGE: 43 SEX: F PCP PHYS: Jam Tolliver MDSERVICE AUTHOR: Samia Saldana DO * ALL edits or amendments must be made on the electronic/computer document * HPI-Palpit/Arrhyth Free Text HPI NotesFree Text HPI Notes43 years old female with history of SVT status post ablation 2013 at [place] presents to the emergency room with palpitation the whole last 24 hours and patient was concerned and about chest pain and shortness of breath, as per EMS patient had bigeminy and her heart rate dropped to 40 rate, patient reported that she is not on any medication for arrhythmia, patient reported that she has follow-up at [facility] with Dr.Nawar Guillen [phone]. Patient denies fever or chills. GeneralInitial Greet Date/Time 05/14/232156 PresentationChief Complaint Palpitations Review of Systems ROS StatementsAll systems rev neg except as marked. Past Medical History - AdultStated Complaint IRREGULAR HEART RHYTHMAllergiesCoded Allergies:adhesive tape (Mild, HIVES 04/08/23)ertapenem (Mild, Itching 04/08/23)Iodinated Contrast Media (UNKNOWN 05/14/23)sumatriptan (From IMITREX) (ITCHY 04/08/23) Home MedicationsActive ScriptsLOSARTAN (COZAAR) 25 MG PO DAILY 1800 LOSARTAN (COZAAR) 25 MG PO DAILY 1800 #30 TAB Ref 1 Prov: 11/04/22LEVOTHYROXINE (SYNTHROID) 125 MCG PO DAILY 0700 LEVOTHYROXINE (SYNTHROID) 125 MCG PO DAILY 0700 #30 TAB Ref 1 Prov: 11/04/22 Reported MedicationsNITROFURANTOIN/NITROFURAN MAC (MACROBID) 100 MG PO BID CITALOPRAM (CeleXA) 10 MG PO DAILY traZODone (DESYREL) 50 MG PO BEDTIME HYDROCHLOROTHIAZIDE (HYDRODIURIL) 25 MG PO DAILY SEMAGLUTIDE (OZEMPIC PEN (4 MG/3mL)) 1 MG SUBQ Q7D Discontinued Reported MedicationsHYOSCYAMINE (LEVSIN) 0.125 MG PO Q4H PRN PRN BLADDER SPASMS Physical Exam Vital SignsVital SignsFirst Documented: Result Date Time Pulse Ox 100 05/14 2151 B/P 125/75 05/14 215 B/P Mean 91 05/14 2151 O2 Delivery Room air 05/14 2151 Pulse 70 05/14 2151 Resp 18 05/14 2151 Last Documented: Result Date Time Pulse Ox 98 05/15 0500 B/P 128/74 05/15 0500 B/P Mean 92 05/15 0500 O2 Delivery Room air 05/15 0500 Pulse 62 05/15 0500 Resp 20 05/15 0500 Review of Vital Signs Reviewed Free Text PE NotesFree Text PE NotesGen/Const: wake, alert, no acute distress, well appearingMS Head: normocephalic, atraumatic Neck: no midline ttpEyes: PERRL b/l; EOM intactEars/Nose/Throat: normal posterior oropharynx, TMs clear b/l Resp/Chest: lungs CTAB; no wheezes, rales, rhonchi, retractions Cardiovascular: rrr; no murmurs, gallops, or rubs; capillary refill less than 2 seconds; no chest ttp Abdomen/GI: soft, nontender, nondistended, bowel sounds equal and reactive MS Upper Extremity: Atraumatic, no abnormalities notedMS Lower Extremity: Atraumatic; no clubbing, cyanosis, or edemaMS Back: No midline tenderness palpation; no step-offs or deformitiesSkin: Normal color; no rash present; no petechiae or purpuraNeurologic: Awake, alert, oriented x4; cranial nerves II through XII intact; no motor deficits; no sensory deficit; normal cerebellar function; normal gait Interpretation Diagnostics Lab Results InterpretationResultsLaboratory Tests 05/14/232327:[Embedded Image Not Available]Laboratory Tests: 05/14 2327 Chemistry Sodium (136 - 145 mmol/L) 135 L Potassium (3.5 - 5.1 mmol/L) 3.9 Chloride (98 - 107 mmol/L) 99 Carbon Dioxide (21 - 32 mmol/L) 28 Anion Gap (4 - 15 GAP calc) 8 BUN (7 - 18 MG/DL) 14 Creatinine (0.6 - 1.0 MG/DL) 1.3 H Glomerular Filtr Rate (>60 estGFR) 52 L Glucose (70 - 110 MG/DL) 97 Calcium (8.5 - 10.1 MG/DL) 8.7 Total Creatine Kinase (21 - 215 Unit/L) 75 Troponin I High Sens (0 - 54 ng/L) 5.6 Hematology WBC (3.5 - 11.0 K/mm3) 4.6 RBC (4.70 - 6.10 M/mm3) 4.95 Hgb (10.4 - 14.9 G/DL) 12.0 Hct (31.5 - 44.1 %) 38.2 MCV (84.5 - 98.6 Fl) 77.2 L MCH (27.0 - 34.2 pg) 24.2 L MCHC (31.5 - 34.0 G/DL) 31.4 L RDW (11.5 - 14.5 SD) 16.4 H Plt Count (150 - 450 K/mm3) 375 MPV (7.0 - 10.5 fL) 10.50 Miscellaneous Maternal Serum HCG (0 - 6 mi-IU/ML) 0 Microbiology: Date/Time Procedure - Status Source Growth 05/15 419 MRSA Screen - ORD NASAL Recent Impressions:RADIOLOGY - XR CHEST 1 V 05/14 2244 Report Impression - Status: SIGNED Entered: 05/14/20232326 IMPRESSION: No acute finding Impression By: [email or web address] - Rosalia Torre M.D. ECG #1 InterpretationText/Dict NoteSinus rhythm 69 bpm, left axis, no ST segment elevation, QTc 454 Re-Evaluation MDM Free Text MDM NotesFree Text MDM Notes43 years old female with history of SVT status post ablation 2016 at [place] who presents with palpitation, chest pain, shortness of breath, as per EMS bigeminy and bradycardia Differential includes arrhythmia, rule out acute coronary syndrome, electrolyte abnormalities Labs, EKG, chest x-ray, cardiac monitoring and respiratory support, reassess Re-Evaluation/Progress #1Text/Dict NoteUnremarkable labs, tropes negative, chest x-ray unremarkable, patient continued to have palpitation, chest pain or shortness of breath Patient was admitted under Dr. 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 [facility], patient after multiple discussions refused to stay in the hospital signed AGAINST MEDICAL ADVICE ED CourseMedication(s) OrderedMedication(s) Ordered:Central Nervous System Agents Sig/Mona Start time Last Medication Dose Route Stop Time Status Admin Aspirin 325 MG DAILY 05/16 0900 DCD PO 06/14 0859 Patient Discharge Departure Vital Signs/ConditionVital SignsFirst Documented: Result Date Time Pulse Ox 100 05/14 2151 B/P 125/75 05/14 215 B/P Mean 91 05/14 2152 O2 Delivery Room air 05/14 2151 Pulse 70 05/14 2152 Resp 18 05/14 2151 Last Documented: Result Date Time Pulse Ox 98 05/15 0500 B/P 128/74 05/15 0500 B/P Mean 92 05/15 0500 O2 Delivery Room air 05/15 0500 Pulse 62 05/15 0500 Resp 20 05/15 0500 All vital signs available at the time of this entry have been reviewed. Condition Stable Clinical ImpressionClinical ImpressionPrimary Impression: Chest painSecondary Impressions: Palpitation Disposition DecisionHospitalize Hosp Physician Name Glen Nava MD Hosp Physician Hospitalist Request Time 0416 Request Date 05/15/23 )( Accepts Hospitalization Yes )( Reason for Hospitalizationchest pain , palpitation )( Accepted Time 0416 )( Accepted Date 05/15/23 Call Information will see patient, agrees with eval, agrees with plan at 1005 RPT #: [id number] OF REPORTEDEmergency department rpdhui0475-68-27I43:07:00L.SLIJ77411848-9090AOFix ilable for patient kgmrBSPXOFAOESJGKE5835-60-22R32:06:02 [facility] 2023-04-15 15:11:00 [id number]/RIt PI7eDw0nFZosmV1MSz3oxXZmOk55v gnfyRcqQ0/xc2Mswd1/MVhUnUH66186-72-64K90:11:00 [facility] ([facility])Hospitalist Discharge SummaryREPORT#:[id number] REPORT STATUS: SignedREPORT INITIALIZATION DATE:04/15/23 TIME:151 PATIENT: DAVID BELLO HQIRRO JUAN PABLO UNIT #: [id number]#: [id number] [address] [birth year] AGE: 43 SEX: F ATTEND: Bj Oneal MDA AUTHOR: Bj Oneal MDREPT SERVICE DT/TIME: 04/15/23 1511* ALL edits or amendments must be made on the electronic/computer document * General InformationDischarge date: 04/15/23Discharge diagnosis:MSSA UTI and bacteremiaHospital course:Ms. Bello is a 43-year-old woman who presents with complaint of right flank pain: #Acute complicated pyelonephritis 2/2 MSSA with bacteremia, complicated by migrated R ureteral stent and adjacent stone 4 mmHistory of ESBL E. coli infection, recurrent kidney stones, ureteral stentsUrine and blood cx +MSSAReceived cefazolinDiscussed with ID Dr. Zepeda - repeat blood cx negative, plan to dc on IV nafcillin x [address] Rodriguez - s/p endoscopy procedure and the migrated R ureteral stent and impacted stone [facility] x 2 weeks. Midline placed.Will f/u outpatient #Acute kidney injury - resolvedLikely prerenal #HypokalemiaRepleted #History of hypothyroidismResume levothyroxine #History of WWDTTC1m 6.0 now #History of hypertensionHold losartan for SHER then resumed DVT prophylaxis SCDs, ambulatory CODE STATUS: Full code Med Rec Med RecDischarge meds:Continue taking these medications:SEMAGLUTIDE (OZEMPIC PEN (4 MG/3mL)) 1 MG/0.75 ML (4 MG/3 ML) PEN.INJCTR 1 MILLIGRAM SUBCUTANEOUS EVERY 7 DAYS. LOSARTAN (COZAAR) 25 MG TAB 25 MILLIGRAM ORAL DAILY AT 1800. Qty = 30 LEVOTHYROXINE (SYNTHROID) 125 MCG TAB 125 MICROGRAM ORAL DAILY AT 0700. Qty = 30 CITALOPRAM (CeleXA) 10 MG TAB 10 MILLIGRAM ORAL DAILY. traZODone (DESYREL) 50 MG TAB 50 MILLIGRAM ORAL BEDTIME. HYDROCHLOROTHIAZIDE (HYDRODIURIL) 25 MG TAB 25 MILLIGRAM ORAL DAILY. HYOSCYAMINE (LEVSIN) 0.125 MG TAB 0.125 MILLIGRAM ORAL EVERY 4 HOURS NEEDED. as needed for BLADDER SPASMS ObjectiveVS/I OLast Documented: Result Date Time Pulse Ox 97 04/15 1221 B/P 142/82 04/15 1221 B/P Mean 101.9 04/15 1221 O2 Delivery Room air 04/15 1221 Temp 36.5 04/15 1221 Pulse 65 04/15 1221 Resp 16 04/15 1221 O2 Flow Rate 6 04/09 1101 ResultsResults: labs reviewed, vital signs reviewed Free Text Obj NotesFree Text Obj Notes:General appearance: awake, no acute distressHead/Eyes: atraumatic, normal conjunctiva/sclera, normal eyelids/periorbital area, normocephalicENT: moist mucosal membranesNeck: suppleCardiovascular: regular rate rhythmRespiratory: symmetric expansion, no accessory muscle useAbdomen: soft, non-tender, no distention, no guardingExtremities: no edema, no cyanosisMusculoskeletal: normal muscle massNeuro/EARLY HEAD START TEACHER: alert, oriented X 3, normal speech, no motor deficits, no sensory deficitsSkin: dry, intact, normal color, normal temperature, no rashPsychiatry: normal affect Discharge Instructions PCPPCP follow-up:PCP: Jam Tolliver MD Discharge to: [facility] of CareAdditional Discharge Routines: PCP Follow-UpDiet: RegularDischarge management: greater than 30 mins Follow-up AppointmentsPCP follow-up: PCP: Jam Tolliver MD PCP follow up timeframe: In 1-2 weeks at 1510 RPT #: [id number] OF REPORT DSDischarge bzfikhn6187-56-61K28:11:00L.[id number] ailable for patient djgkRJWOWNXTKMZUPA8274-55-03O21:10:56 [facility] 2023-04-15 09:02:00 [id number] FzQufHMlwS1dcSC9EL4JyULvam7Hw TxhVffgkY8dt9+2VKoF72qZf7kU3988-78-57Q23:02:00 [facility] ([facility])Infectious Dis. Progress NoteREPORT#:[id number] REPORT STATUS: SignedREPORT INITIALIZATION DATE:04/15/23 TIME:901 PATIENT: DAVID BELLO HQMOJGANO JUAN PABLO UNIT #: [id number]#: [id number] [address] [birth year] AGE: 43 SEX: F ATTEND: Bj Oneal [facility] AUTHOR: Paul Garrett MDREPT SERVICE DT/TIME: 04/15/23 0902* ALL edits or amendments must be made on the electronic/computer document * SubjectiveChief complaint:UTIHPI:Pt is on nafcillin. Last blood cxs are neg. Review of SystemsConstitutional:Denies: fever. Objective GeneralVS/I O:Vital SignsDate Temp Pulse Resp B/P B/P Mean Pulse Ox NrW537/-04/15 36.6-37.0 59-64 16-17 118-158/70-90 86.0-111.8 94-99 Last Documented: Result Date Time Pulse Ox 97 04/15 0737 B/P 143/86 04/15 0737 B/P Mean 105.1 04/15 0737 O2 Delivery Room air 04/15 0737 Temp 37.0 04/15 0737 Pulse 64 04/15 0737 Resp 16 04/15 0737 O2 Flow Rate 6 04/09 1101 Vital Signs: Date Time Temp Pulse Resp B/P B/P Pulse O2 O2 Flow FiO2 Mean Ox Delivery Rate 04/15 0737 37.0 64 16 143/86 105.1 97 Room air 04/15 0327 36.9 64 17 118/70 86.0 95 Room air 04/14 2325 36.9 59 17 155/90 111.8 96 Room air 04/14 1910 36.8 59 17 158/89 111.8 95 Room air 04/14 1651 36.6 60 16 148/87 107.1 94 Room air 04/14 1131 36.6 61 16 145/89 107.6 99 Room air 24 hour I O ending at 0700: 04/15 0700 04/14 1900 Intake Total 1650.00 150.00 Output Total Balance 1650.00 150.00 Intake, IV 650.00 150.00 Intake, Oral 1000 PATIENT WEIGHT: Weight (lb): Weight (oz): Weight (kg): 94.545 Physical ExamGeneral appearance: alert, awakeHead/Eyes: atraumatic, clear cornea, EOMI, normal conjunctiva/sclera, normal eyelids/periorb, normocephalicNeck: full range of motion, non-tender, supple/no meningismusCardiovascular: regular rate rhythmRespiratory: symmetric expansion, no distressAbdomen: non-tender, soft, no distention, no guardingExtremities: no clubbing, no cyanosisNeuro/EARLY HEAD START TEACHER: alert, oriented X 3, CNII-XII intact, normal speechSkin: normal turgor, no rash Diagnosis, Assessment PlanFree Text A P:No new CBC Imaging:CTAP reviewed 04/08CXR reviewed 04/08 Assessment:1. Acute pyelonephritis.2. Sepsis with MSSA bacteremia. TTE showed no vegetation.3. Migrated right ureteral stent s/p removal 04/09/23.4. Acute kidney injury.5. Allergy to ertapenem.6. H/o ESBL E. coli bacteremia and UTI 2022. Plan:1. Nafcillin (day 7 total abxs).2. Pt will need 2 weeks of therapy. End date: 04/26/23.3. CM consulted to arrange home IV abx.4. Urology following.5. Monitor CBC.6. Monitor kidney function.7. Midline ordered.8. Pt can be discharged from ID standpoint as soon as the home IV abxs are arranged. at 1107 RPT #: [id number] OF REPORT PRProgress nyla9003-34-98B42:02:00L.JPES02023512-8194GHOllzk able for patient pbtbZEJPKYBVLILNTH2442-28-96T18:08:06 [facility] 2023-04-14 20:54:00 [id number]+g8bg 40drNVJ34+oSEmPkHT1MCkfX8TvYe T97ZbBEpPBRhbicVGIDuKfbD8QA4502-24-46U07:54:00 [facility]Hospital[facility] Progress NoteREPORT#:[id number] REPORT STATUS: SignedREPORT INITIALIZATION DATE:04/14/23 TIME:2053 PATIENT: DAVID BELLO UNIT #: [id number]#: [id number] [address] [birth year] AGE: 43 SEX: F ATTEND: Bj Oneal AUTHOR: Bj Oneal MDREPT SERVICE DT/TIME: 04/14/232053* ALL edits or amendments must be made on the electronic/computer document * SubjectiveExternal recordNo acute events overnight. Objective GeneralVS/I O:Vital Signs: Date Time Temp Pulse Resp B/P B/P Pulse O2 O2 Flow FiO2 Mean Ox Delivery Rate 01/21 1910 36.8 59 17 158/89 111.8 95 Room air 04/14 1651 36.6 60 16 148/87 107.1 94 Room air 04/14 1131 36.6 61 16 145/89 107.6 99 Room air 04/14 0733 36.6 55 15 113/61 78.5 96 Room air 04/14 0322 36.5 50 17 107/61 76.2 95 Room air 04/13 2309 36.7 58 17 161/86 110.9 98 Room air 24 hour I O ending at 0700: 04/14 0700 04/13 1900 Intake Total 900.00 Output Total Balance 900.00 Intake, IV 300.00 Intake, Oral 600 Number Voids 1 PATIENT WEIGHT: Weight (lb): Weight (oz): Weight (kg): 94.545 Medications:Active Meds + DC'd Last 24 HrsNafcillin Sodium (UNIPEN) 2 GM Q4HR IV Sodium Chloride (0.9% Sodium Chloride) 50 MLTrazodone HCl (DESYREL) 50 MG BEDTIME PO Citalopram Hydrobromide (CeleXA) 10 MG DAILY PO Docusate Sodium (COLACE) 100 MG BID PO Ondansetron HCl (ZOFRAN) 8 MG Q8H PRN PRN PO Ondansetron HCl (ZOFRAN) 8 MG Q8H PRN PRN IV Lactated Ringer's (LACTATED RINGERS) 1,000 ML .Q10H IV Levothyroxine Sodium (SYNTHROID) 125 MCG DAILY@0700 PO Acetaminophen (TYLENOL) 650 MG Q4H PRN PRN PO ResultsResults: labs reviewed, vital signs reviewed Free Text Obj NotesFree Text Obj Notes:General appearance: awake, no acute distressHead/Eyes: atraumatic, normal conjunctiva/sclera, normal eyelids/periorbital area, normocephalicENT: moist mucosal membranesNeck: suppleCardiovascular: regular rate rhythmRespiratory: symmetric expansion, no accessory muscle useAbdomen: soft, non-tender, no distention, no guardingExtremities: no edema, no cyanosisMusculoskeletal: normal muscle massNeuro/EARLY HEAD START TEACHER: alert, oriented X 3, normal speech, no motor deficits, no sensory deficitsSkin: dry, intact, normal color, normal temperature, no rashPsychiatry: normal affect Diagnosis, Assessment Plan Free Text DxA P NotesFree text DxA P notes:Ms. Bello is a 43-year-old woman who presents with complaint of right flank pain: #Acute complicated pyelonephritis 2/2 MSSA with bacteremia, complicated by migrated R ureteral stent and adjacent stone 4 mmHistory of ESBL E. coli infection, recurrent kidney stones, ureteral stentsUrine and blood cx +MSSADiscussed with ID Dr. Zepeda - repeat blood cx pending, if negative at 48h willdc on IV nafcillin for [address] Rodriguez - s/p migrated R ureteral stent and impacted stone that were removed 04/09/23Pending insurance approval for home IV nafcillin. Midline ordered. #Acute kidney injuryLikely prerenalResolved with IV fluidsTrend BMP #HypokalemiaP.o. repletion #History of hypothyroidismResume levothyroxine #History of NIDDMLast A1c 6.5 11/14Recheck A1c #History of hypertensionHold losartan for SHER DVT prophylaxis SCDs, ambulatory CODE STATUS: Full code at 2056 RPT #: [id number] OF REPORT PRProgress kgmk6596-90-00X54:54:00L.JHIS29625726-6733DHMkzzk able for patient dgjpBFMHPMTJEXTJKU0750-92-26T97:56:17 [facility] 2023-04-13 16:57:00 [id number] +RRmCC6cniPAyCnH3CUq3/MrFxtWc AhZwFI90m5uZutYub64KA+zBbHc0164-14-89N27:57:00 [facility] ([facility])Hospitalist Progress NoteREPORT#:[id number] REPORT STATUS: SignedREPORT INITIALIZATION DATE:04/13/23 TIME:1656 PATIENT: DAVID BELLO HQIRRO JUAN PABLO UNIT #: [id number]#: [id number] [address] [birth year] AGE: 43 SEX: F ATTEND: Bj Oneal MDADM AUTHOR: Bj Oneal MDREPT SERVICE DT/TIME: 04/13/23 502* ALL edits or amendments must be made on the electronic/computer document * Subjective Free Text Subj NotesFree Text Subj Notes:No acute events overnight. No insurance approval for IV antibiotics at home yet. Objective GeneralVS/I O:Vital Signs: Date Time Temp Pulse Resp B/P B/P Pulse O2 O2 Flow FiO2 Mean Ox Delivery Rate 04/13 1646 36.6 64 16 136/84 101.2 99 Room air 04/13 1142 36.4 59 15 128/83 98.0 98 Room air 04/13 0731 36.6 57 15 148/89 108.8 96 Room air 04/13 0329 36.9 62 18 107/66 79.9 95 Room air 04/12 2326 37.0 49 17 128/77 94.2 92 Room air 04/12 1910 37.2 53 17 123/73 89.5 97 Room air 24 hour I O ending at 0700: 04/13 0700 04/12 1900 Intake Total 2560.00 450 Output Total Balance 2560.00 450 Intake, IV 1560.00 Intake, Oral 1000 450 Number Voids 3 PATIENT WEIGHT: Weight (lb): Weight (oz): Weight (kg): 94.545 Medications:Active Meds + DC'd Last 24 HrsNafcillin Sodium (UNIPEN) 2 GM Q4HR IV Sodium Chloride (0.9% Sodium Chloride) 50 MLTrazodone HCl (DESYREL) 50 MG BEDTIME PO Citalopram Hydrobromide (CeleXA) 10 MG DAILY PO Docusate Sodium (COLACE) 100 MG BID PO Ondansetron HCl (ZOFRAN) 8 MG Q8H PRN PRN PO Ondansetron HCl (ZOFRAN) 8 MG Q8H PRN PRN IV Lactated Ringer's (LACTATED RINGERS) 1,000 ML .Q10H IV Levothyroxine Sodium (SYNTHROID) 125 MCG DAILY@0700 PO Acetaminophen (TYLENOL) 650 MG Q4H PRN PRN PO ResultsResults: labs reviewed, vital signs reviewed Free Text Obj NotesFree Text Obj Notes:General appearance: awake, no acute distressHead/Eyes: atraumatic, normal conjunctiva/sclera, normal eyelids/periorbital area, normocephalicENT: moist mucosal membranesNeck: suppleCardiovascular: regular rate rhythmRespiratory: symmetric expansion, no accessory muscle useAbdomen: soft, non-tender, no distention, no guardingExtremities: no edema, no cyanosisMusculoskeletal: normal muscle massNeuro/EARLY HEAD START TEACHER: alert, oriented X 3, normal speech, no motor deficits, no sensory deficitsSkin: dry, intact, normal color, normal temperature, no rashPsychiatry: normal affect Diagnosis, Assessment Plan Free Text DxA P NotesFree text DxA P notes:Ms. Bello is a 43-year-old woman who presents with complaint of right flank pain: #Acute complicated pyelonephritis 2/2 MSSA with bacteremia, complicated by migrated R ureteral stent and adjacent stone 4 mmHistory of ESBL E. coli infection, recurrent kidney stones, ureteral stentsUrine and blood cx +MSSADiscussed with ID Dr. Zepeda - repeat blood cx pending, if negative at 48h willdc on IV nafcillin for [address] Rodriguez - s/p migrated R ureteral stent and impacted stone that were removed 04/09/23Pending insurance approval for home IV nafcillin #Acute kidney injuryLikely prerenalResolved with IV fluidsTrend BMP #HypokalemiaP.o. repletion #History of hypothyroidismResume levothyroxine #History of NIDDMLast A1c 6.5 11/14Recheck A1c #History of hypertensionHold losartan for SHER DVT prophylaxis SCDs, ambulatory CODE STATUS: Full code at 1701 RPT #: [id number] OF REPORT PRProgress kwrz8271-29-52N67:57:00L.[id number] able for patient inbgOMPZMNHZDBYEBA9116-32-56Y17:01:58 [facility] 2023-04-13 10:23:00 [id number] 7hi8FGBXVsaLayxhL8QMKoSOIKYs+ reEvgkRpw0+pjLeBAC3BoslTM2g4943-85-74B97:23:00 [facility] ([facility])Infectious Dis. Progress NoteREPORT#:[id number] REPORT STATUS: SignedREPORT INITIALIZATION DATE:04/13/23 TIME:1023 PATIENT: DAVID BELLO UNIT #: [id number]#: [id number] [address] [birth year] AGE: 43 SEX: F ATTEND: Bj Oneal MDADM AUTHOR: Paul Garrett MDREPT SERVICE DT/TIME: 04/13/23 1023* ALL edits or amendments must be made on the electronic/computer document * SubjectiveChief complaint:UTIHPI:Pt is on nafcillin. Last blood cxs are neg. Review of SystemsConstitutional:Denies: fever. Objective GeneralVS/I O:Vital SignsDate Temp Pulse Resp B/P B/P Mean Pulse Ox OyL170/-04/13 36.6-37.2 49-62 14-18 107-148/66-89 79.9-108.8 92-99 Last Documented: Result Date Time Pulse Ox 96 04/13 0731 B/P 148/89 04/13 0731 B/P Mean 108.8 04/13 0731 O2 Delivery Room air 04/13 0731 Temp 36.6 04/13 0731 Pulse 57 04/13 0731 Resp 15 04/13 0731 O2 Flow Rate 6 04/09 1101 Vital Signs: Date Time Temp Pulse Resp B/P B/P Pulse O2 O2 Flow FiO2 Mean Ox Delivery Rate 04/13 0731 36.6 57 15 148/89 108.8 96 Room air 04/13 0329 36.9 62 18 107/66 79.9 95 Room air 04/12 2326 37.0 49 17 128/77 94.2 92 Room air 04/12 1910 37.2 53 17 123/73 89.5 97 Room air 04/12 1622 36.6 57 14 134/83 100.1 99 04/12 1104 36.7 52 16 131/85 100.4 99 Room air 24 hour I O ending at 0700: 04/13 0700 04/12 1900 Intake Total 2560.00 450 Output Total Balance 2560.00 450 Intake, IV 1560.00 Intake, Oral 1000 450 Number Voids 3 PATIENT WEIGHT: Weight (lb): Weight (oz): Weight (kg): 94.545 Physical ExamGeneral appearance: alert, awakeHead/Eyes: atraumatic, clear cornea, EOMI, normal conjunctiva/sclera, normal eyelids/periorb, normocephalicNeck: full range of motion, non-tender, supple/no meningismusCardiovascular: regular rate rhythmRespiratory: symmetric expansion, no distressAbdomen: non-tender, soft, no distention, no guardingExtremities: no clubbing, no cyanosisMusculoskeletal: no joint swellingNeuro/EARLY HEAD START TEACHER: alert, oriented X 3, CNII-XII intact, normal speechSkin: normal turgor, no rash Diagnosis, Assessment PlanFree Text A P:No new CBC Imaging:CTAP reviewed 04/08CXR reviewed 04/08 Assessment:1. Acute pyelonephritis.2. Sepsis with MSSA bacteremia. TTE showed no vegetation.3. Migrated right ureteral stent s/p removal 04/09/23.4. Acute kidney injury.5. Allergy to ertapenem.6. H/o ESBL E. coli bacteremia and UTI 2022. Plan:1. Cefazolin (day 5 total abxs).2. Pt will need 2 weeks of therapy. End date: 04/26/23.3. CM consulted to arrange home IV abx.4. Urology following.5. Monitor CBC.6. Monitor kidney function.7. Midline ordered.8. Pt can be discharged from ID standpoint as soon as the home IV abxs are arranged. at 1026 [facility] #: [id number] OF REPORT PRProgress bllq6491-05-69K87:23:00L.IHQM46093319-3175RNEhyyf able for patient mmosKJXAJDWQPDPHPX1812-09-92Y19:26:50 [facility] 2023-04-13 08:10:00 [id number] 8KJn0fljKWxG9NGQJ+EZ06xLTkt4X 6mXEt/YnJiqfk7ab7SOODqCSKhJ2988-01-77S49:10:00 [facility])Hospitalist Progress NoteREPORT#:[id number] REPORT STATUS: SignedREPORT INITIALIZATION DATE:04/13/23 TIME:08 PATIENT: DAVID BELLO UNIT #: [id number]#: [id number] [address] AGE: 43 SEX: F ATTEND: Bj Oneal MDADM AUTHOR: Bj Oneal MDREPT SERVICE DT/TIME: 04/12/23 0810* ALL edits or amendments must be made on the electronic/computer document * SubjectiveChief complaint:Right flank pain Free Text Subj NotesFree Text Subj Notes:No acute events overnight. Looking forward to going home tomorrow. Awaiting final blood culture. Objective GeneralVS/I O:Vital Signs: Date Time Temp Pulse Resp B/P B/P Pulse O2 O2 Flow FiO2 Mean Ox Delivery Rate 04/13 0731 36.6 57 15 148/89 108.8 96 Room air 04/13 0329 36.9 62 18 107/66 79.9 95 Room air 04/12 2326 37.0 49 17 128/77 94.2 92 Room air 04/12 1910 37.2 53 17 123/73 89.5 97 Room air 04/12 1622 36.6 57 14 134/83 100.1 99 04/12 1104 36.7 52 16 131/85 100.4 99 Room air 24 hour I O ending at 0700: 04/13 0700 04/12 1900 Intake Total 2560.00 450 Output Total Balance 2560.00 450 Intake, IV 1560.00 Intake, Oral 1000 450 Number Voids 3 PATIENT WEIGHT: Weight (lb): Weight (oz): Weight (kg): 94.545 Medications:Active Meds + DC'd Last 24 HrsNafcillin Sodium (UNIPEN) 2 GM Q4HR IV Sodium Chloride (0.9% Sodium Chloride) 50 MLTrazodone HCl (DESYREL) 50 MG BEDTIME PO Citalopram Hydrobromide (CeleXA) 10 MG DAILY PO Cefazolin Sodium (KEFZOL) 2 GM Q8HR IV (DC) Sterile Water (WATER FOR INJECTION) 20 MLDocusate Sodium (COLACE) 100 MG BID PO Ondansetron HCl (ZOFRAN) 8 MG Q8H PRN PRN PO Ondansetron HCl (ZOFRAN) 8 MG Q8H PRN PRN IV Lactated Ringer's (LACTATED RINGERS) 1,000 ML .Q10H IV Levothyroxine Sodium (SYNTHROID) 125 MCG DAILY@0700 PO Acetaminophen (TYLENOL) 650 MG Q4H PRN PRN PO Free Text Obj NotesFree Text Obj Notes:General appearance: awake, no acute distressHead/Eyes: atraumatic, normal conjunctiva/sclera, normal eyelids/periorbital area, normocephalicENT: moist mucosal membranesNeck: suppleCardiovascular: regular rate rhythmRespiratory: symmetric expansion, no accessory muscle useAbdomen: soft, non-tender, no distention, no guardingExtremities: no edema, no cyanosisMusculoskeletal: normal muscle massNeuro/EARLY HEAD START TEACHER: alert, oriented X 3, normal speech, no motor deficits, no sensory deficitsSkin: dry, intact, normal color, normal temperature, no rashPsychiatry: normal affect Diagnosis, Assessment Plan Free Text DxA P NotesFree text DxA P notes:Ms. Bello is a 43-year-old woman who presents with complaint of right flank pain: #Acute complicated pyelonephritis 2/2 MSSA with bacteremia, complicated by migrated R ureteral stent and adjacent stone 4 mmHistory of ESBL E. coli infection, recurrent kidney stones, ureteral stentsUrine and blood cx +MSSADiscussed with ID Dr. Zepeda - repeat blood cx pending, if negative at 48h willdc on IV nafcillin for [address] Rodriguez - s/p migrated R ureteral stent and impacted stone that were removed 04/09/23 #Acute kidney injuryLikely prerenalResolved with IV fluidsTrend BMP #HypokalemiaP.o. repletion #History of hypothyroidismResume levothyroxine #History of NIDDMLast A1c 6.5 11/14Recheck A1c #History of hypertensionHold losartan for SHER DVT prophylaxis SCDs, ambulatory CODE STATUS: Full code at 0812 RPT #: [id number] OF REPORT PRProgress kwqo8983-47-20H54:10:00L.[id number] able for patient kfwmFOJQDFAIMUMQGT9636-69-46L06:12:21 [facility] 2023-04-12 12:18:00 [id number] vTTwC0Js8s50EU39Bukgjyg1WxjOH ET/4rEI0gosPkLNvz+mlKXWcm+h8566-65-92F00:18:00 [facility] ([facility])Infectious Dis. Progress NoteREPORT#:[id number] REPORT STATUS: SignedREPORT INITIALIZATION DATE:04/12/23 TIME:1217 PATIENT: DAVID BELLO UNIT #: [id number]#: [id number] [address] AGE: 43 SEX: F ATTEND: Bj Oneal MDADM AUTHOR: Paul Garrett MDREPT SERVICE DT/TIME: 04/12/23 1218* ALL edits or amendments must be made on the electronic/computer document * SubjectiveChief complaint:UTIHPI:MSSA grew in blood and urine cxs. WBC normal. Objective Physical ExamHead/Eyes: atraumatic, clear cornea, EOMI, normal conjunctiva/sclera, normal eyelids/periorb, normocephalicNeck: full range of motion, non-tender, supple/no meningismusCardiovascular: regular rate rhythmRespiratory: symmetric expansion, no distressAbdomen: non-tender, soft, no distention, no guardingExtremities: no clubbing, no cyanosisNeuro/EARLY HEAD START TEACHER: alert, oriented X 3, CNII-XII intact, normal speechSkin: normal turgor, no rash Diagnosis, Assessment PlanFree Text A P:Laboratory Tests 04/11/23 0428:[Embedded Image Not Available] 04/11/23 0427:[Embedded Image Not Available] Imaging:CTAP reviewed 04/08CXR reviewed 04/08 Assessment:1. Acute pyelonephritis.2. Sepsis with MSSA bacteremia. TTE showed no vegetation.3. Migrated right ureteral stent s/p removal 04/09/23.4. Acute kidney injury.5. Allergy to ertapenem.6. H/o ESBL E. coli bacteremia and UTI 2022. Plan:1. Cefazolin (day 5 total abxs).2. Pt will need 2 weeks or more of IV abxs.3. CM consulted to arrange home IV abx.4., Urology following.6. Monitor CBC.7. Monitor kidney function.8. PICC line tomorrow if blood cxs remain neg. at 1702 RPT #: [id number] OF REPORT PRProgress gzby0811-43-84X89:18:00L.GPRE13293511-0943ZVVeola able for patient ndqiNOSYPLPPCTLUWI1097-04-19O16:02:49 [facility] 2023-04-11 21:07:00 [id number] MwPuQq7qr/LIzVbnJOFltm7gBkRV9 txoNAKk0tuq/emRaECcS3YRHN0+4627-11-97Z72:07:52345 8-0006 [facility] [address] [place] [address] PATIENT NAME: DAVID BELLO ADMIT DATE: 04/08/23ACCOUNT NO: [id number] ROOM NO: L.S203 AGE: 43 REPORT TYPE: eECHOCARDIOGRAM REPORT SEX: F ADMITTING PHYSICIAN: Bj Oneal MD ATTENDING PHYSICIAN: Bj Oneal MD *[facility]*[address] [phone] Transthoracic Echocardiogram Patient: David Bello Hqirro NicolStudy Date: 4BP: 119 / 74URN: [id number]: [id number]#: [id number]: 1980Age: 43Gender: FHeight: 65 in / 165.1 cmWeight: 208 lb / 94.3 kgBMI/BSA: 34.6 kg/m 2 / 2.12 m 2*Ordering Physician: * Paul Garrett *Interpreting Physician: * Joseph Nava MD*Hose Tender: * Marixa Duenas Indications: R/o Endocarditis. Study data: Transthoracic echocardiogram. Procedure: A transthoracicechocardiogram was performed. Image quality was adequate. Complete 2D,complete spectral Doppler, color Doppler, and tissue Doppler. Location:Bedside. Patient status: Inpatient. Patient room number: S203. Studystatus: Routine. Heart rate: 76 bpm. Findings Left ventricle: The cavity size is normal. Wall thickness is mildlyincreased. Systolic function is normal. The estimated ejection fraction is55-60%. Wall motion is normal; there are no regional wall motionabnormalities. Grade II diastolic dysfunction. PATIENT NAME: DAVID BELLO Right ventricle: The cavity size is normal. Systolic function is normal.Ventricular septum: The ventricular septum is normal.Left atrium: The atrium is mildly dilated.Right atrium: The atrium is normal in size.Aorta:Aortic root: The root is normal-sized.Aortic valve: The valve is structurally normal. The valve is trileaflet.There is no evidence of a vegetation. There is no evidence of stenosis.There is mild regurgitation.Mitral valve: The valve is structurally normal. There is no evidence ofvegetation. There is no evidence of stenosis. There is moderateregurgitation.Tricuspid valve: The valve is structurally normal. There is no evidence of avegetation. There is mild regurgitation.Pulmonic valve: The valve is structurally normal. There is no evidence of avegetation. There is trace regurgitation.Pericardium: A pericardial effusion is identified.Pulmonary arteries: The main pulmonary artery is normal-sized.Systemic veins:Inferior vena cava: The IVC is normal-sized. Measurements Left ventricle Value Ref RASHAD, LAX 4.4 cm 3.8 - 5.2 ESD, LAX 3.2 cm 2.2 - 3.5 FS, LAX 28 % 27 - 45 IVS, ED 1.2 cm 0.6 - 0.9 PW, ED 1.2 cm 0.6 - 0.9 IVS/PW, ED 1.01 --------- EF 55 % 54 - 74 IVRT 133 ms --------- LVOT Value Ref Diam, S 1.97 cm --------- Area 3.0 cm 2 --------- Peak ania, S 1.1 m/sec --------- Mean ania, S 0.78 m/sec --------- VTI, S 20.6 cm --------- Peak grad, S 5 mm Hg --------- Mean grad, S 3 mm Hg --------- SV 62 ml --------- SV/bsa 29 ml/m 2 --------- Right ventricle Value Ref TAPSE, MM 2.0 cm >=1.7 Left atrium Value Ref Vol/bsa, ES, 1-p A4C 35 ml/m 2 11 - 40 Vol/bsa, ES, A/L 38 ml/m 2 16 - 34 AP dim, ES MM 4.6 cm 2.7 - 3.8 LA/Ao root ratio, MM 1.59 --------- PATIENT NAME: DAVID BELLOO JUAN PABLO Right atrium Value Ref Area, ES 17 cm 2 10 - 18 SI dim, ES, A4C 5.0 cm 3.4 - 5.3 Vol, ES, A/L 48 ml --------- Vol, ES, 1-p A4C 46 ml --------- Vol/bsa, ES, 1-p A4C 22 ml/m 2 9 - 33 Aortic valve Value Ref Leaflet sep, MM 1.93 cm --------- Peak v, S 1.5 m/sec --------- Mean v, S 1.01 m/sec --------- VTI, S 28.9 cm --------- Mean grad, S 5 mm Hg --------- Peak grad, S 9.1 mm Hg --------- LVOT/AV, VTI ratio 0.71 --------- DIONICIO, VTI 2.16 cm 2 --------- LVOT/AV, Vpeak ratio 0.74 --------- DIONICIO, Vmax 2.21 cm 2 --------- AR peak v 4.87 m/sec --------- AR decel 114.14 cm/s 2 --------- AR decel time 4268 ms --------- AR PHT 1238 ms --------- AR peak grad 95 mm Hg --------- Mitral valve Value Ref E-septal separation 1.7 cm --------- Peak E 1.06 m/sec --------- Peak A 0.71 m/sec --------- Decel time 175 ms --------- PHT 54 ms --------- Peak grad, D 4.5 mm Hg --------- Peak E/A ratio 1.5 --------- MVA, PHT 4.0 cm 2 --------- MR peak v 5.57 m/sec --------- Pulmonic valve Value Ref NE peak v 1.05 m/sec --------- NE peak grad 4 mm Hg --------- Tricuspid valve Value Ref TR peak v 2.9 m/sec <=2.8 Peak RV-RA grad, S 35 mm Hg --------- Aortic root Value Ref Root diam, ED MM 2.9 cm --------- Systemic veins Value Ref Estimated CVP 5 mm Hg --------- Pulmonary veins Value Ref A rev duration 107 ms --------- Conclusions PATIENT NAME: DAVID BELLO HQLONNIE JUAN PABLO Summary: 1. Left ventricle: The cavity size is normal. Wall thickness is mildly increased. Systolic function is normal. The estimated ejection fraction is 55-60%. Wall motion is normal; there are no regional wall motion abnormalities. Grade II diastolic dysfunction.2. Left atrium: The atrium is mildly dilated.3. Aortic valve: There is no evidence of a vegetation. The regurgitation pressure half-time is 1238 ms.4. Mitral valve: There is no evidence of vegetation. There is moderate regurgitation.5. Tricuspid valve: There is no evidence of a vegetation. The peak diastolic gradient is 34.8 mm Hg. The peak RV-RA systolic gradient is 35 mm Hg Indicating mild pulmonaryHypertension6. Pulmonic valve: There is no evidence of a vegetation.7. Pericardium, extracardiac: A pericardial effusion is identified.Impressions: No definitive signs of infective endocarditis are seen. If theclinical suspicion for infective endocarditis is high, please order atransesophageal echocardiogram.Electronically signed by Joseph Nava MD04/11/2023 21:07 at 2107 PATIENT NAME: DAVID BELLO :07:0 0L.[id number] for patient logrPXYRGIUIJOSZYE8220-81-72B57:07:51 [facility] 2023-04-11 19:40:00 [id number]/Eo+/ ga2C/oiZ2t/ZetazzlhmmVWnXz8pB pJcePjijuAOMIn1I7QP1iZJyib04749-96-48T01:40:00 [facility] ([facility] Progress NoteREPORT#:[id number] REPORT STATUS: SignedREPORT INITIALIZATION DATE:04/11/23 TIME:1939 PATIENT: DAVID BELLO UNIT #: [id number]#: [id number] [address] AGE: 43 SEX: F ATTEND: Bj Oneal [facility] AUTHOR: Bj Oneal [facility] WESTEPT SERVICE DT/TIME: 04/11/231939* ALL edits or amendments must be made on the electronic/computer document * Subjective Free Text Subj NotesFree Text Subj Notes:No acute events overnight. Feels better overall. Objective GeneralVS/I O:Vital Signs: Date Time Temp Pulse Resp B/P B/P Pulse O2 O2 Flow FiO2 Mean Ox Delivery Rate 04/11 1913 36.9 70 16 136/74 94.6 99 04/11 1117 36.7 67 16 138/78 97.9 98 Room air 04/11 0742 36.7 90 16 138/82 100 95 Room air 04/11 0442 36.5 87 16 150/79 103.0 96 Room air 04/10 2351 36.3 90 16 134/81 98.5 98 Room air 24 hour I O ending at 0700: 04/11 0700 04/10 1900 Intake Total 240 400 Output Total Balance 240 400 Intake, Oral 240 400 Number Voids 3 PATIENT WEIGHT: Weight (lb): Weight (oz): Weight (kg): 94.545 Medications:Active Meds + DC'd Last 24 HrsTrazodone HCl (DESYREL) 50 MG BEDTIME PO Citalopram Hydrobromide (CeleXA) 10 MG DAILY PO Cefazolin Sodium (KEFZOL) 2 GM Q8HR IV Sterile Water (WATER FOR INJECTION) 20 MLDocusate Sodium (COLACE) 100 MG BID PO Pregabalin (LYRICA) 75 MG BID PO Ondansetron HCl (ZOFRAN) 8 MG Q8H PRN PRN PO Ondansetron HCl (ZOFRAN) 8 MG Q8H PRN PRN IV Lactated Ringer's (LACTATED RINGERS) 1,000 ML .Q10H IV Levothyroxine Sodium (SYNTHROID) 125 MCG DAILY@0700 PO Acetaminophen (TYLENOL) 650 MG Q4H PRN PRN PO Morphine Sulfate (morphine SULFATE) 4 MG Q4H PRN PRN IV (DC) ResultsResults: labs reviewed, vital signs reviewed Free Text Obj NotesFree Text Obj Notes:General appearance: awake, no acute distressHead/Eyes: atraumatic, normal conjunctiva/sclera, normal eyelids/periorbital area, normocephalicENT: moist mucosal membranesNeck: suppleCardiovascular: regular rate rhythmRespiratory: symmetric expansion, no accessory muscle useAbdomen: soft, non-tender, no distention, no guardingExtremities: no edema, no cyanosisMusculoskeletal: normal muscle massNeuro/EARLY HEAD START TEACHER: alert, oriented X 3, normal speech, no motor deficits, no sensory deficitsSkin: dry, intact, normal color, normal temperature, no rashPsychiatry: normal affect Diagnosis, Assessment Plan Free Text DxA P NotesFree text DxA P notes:Ms. Bello is a 43-year-old woman who presents with complaint of right flank pain: #Acute complicated pyelonephritis 2/2 MSSA with bacteremia, complicated by migrated R ureteral stent and adjacent stone 4 mmHistory of ESBL E. coli infection, recurrent kidney stones, ureteral stentsUrine and blood cx +MSSADiscussed with ID Dr. Zepeda - repeat blood cx pending, if negative at 48h willdc on IV nafcillin for [address] Rodriguez - s/p migrated R ureteral stent and impacted stone that were removed 04/09/23 #Acute kidney injuryLikely prerenalContinue IV fluidsTrend BMP #HypokalemiaP.o. repletion #History of hypothyroidismResume levothyroxine #History of NIDDMLast A1c 6.5 11/14Recheck A1c #History of hypertensionHold losartan for SHER DVT prophylaxis SCDs pending procedure CODE STATUS: Full code at 1948 RPT #: [id number] OF REPORT PRProgress kzti3072-06-85X66:40:00L.WNNJ34552620-9197RSGocjw able for patient lezbNCQRPKOVYFAIDV3484-57-36X35:48:56 [facility] 2023-04-11 12:53:00 [id number] oLYXemXNYBvdJsj48OONYL9vpZrsP NEEzAMo7xReJOd6usAyVU7kcUA/7937-33-42W39:53:00 [facility] ([facility])Infectious Dis. Progress NoteREPORT#:[id number] REPORT STATUS: SignedREPORT INITIALIZATION DATE:04/11/23 TIME:1253 PATIENT: DAVID BELLO HQIRRO JUAN PABLO UNIT #: [id number]#: [id number] [address] AGE: 43 SEX: F ATTEND: Bj Oneal MDA AUTHOR: Paul Garrett MDREPT SERVICE DT/TIME: 04/11/23 1253* ALL edits or amendments must be made on the electronic/computer document * SubjectiveChief complaint:UTIHPI:MSSA grew in blood and urine cxs. WBC normal. Review of SystemsConstitutional:Denies: fever. Objective GeneralVS/I O:Vital Signs Date Temp Pulse Resp B/P B/P Mean Pulse Ox FiO2 04/10-04/11 36.3-36.8 67-93 16 127-150/78-83 96.3-103.0 94-98 Last Documented: Result Date Time Pulse Ox 98 04/11 1117 B/P 138/78 04/11 1117 B/P Mean 97.9 04/11 1117 O2 Delivery Room air 04/11 1117 Temp 36.7 04/11 1117 Pulse 67 04/11 1117 Resp 16 04/11 1117 O2 Flow Rate 6 04/09 1101 Vital Signs: Date Time Temp Pulse Resp B/P B/P Pulse O2 O2 Flow FiO2 Mean Ox Delivery Rate 04/11 1117 36.7 67 16 138/78 97.9 98 Room air 04/11 0742 36.7 90 16 138/82 100 95 Room air 04/11 0442 36.5 87 16 150/79 103.0 96 Room air 04/10 2351 36.3 90 16 134/81 98.5 98 Room air 04/10 1930 36.8 77 16 127/81 96.3 96 Room air 04/10 1651 36.8 93 16 129/83 98.3 94 Room air 24 hour I O ending at 0700: 04/11 0700 04/10 1900 Intake Total 240 400 Output Total Balance 240 400 Intake, Oral 240 400 Number Voids 3 PATIENT WEIGHT: Weight (lb): Weight (oz): Weight (kg): 94.545 Physical ExamGeneral appearance: alert, awakeHead/Eyes: atraumatic, clear cornea, EOMI, normal conjunctiva/sclera, normal eyelids/periorb, normocephalicNeck: full range of motion, non-tender, supple/no meningismusCardiovascular: regular rate rhythmRespiratory: symmetric expansion, no distressAbdomen: non-tender, soft, no distention, no guardingExtremities: no clubbing, no cyanosisMusculoskeletal: no joint swellingNeuro/EARLY HEAD START TEACHER: alert, oriented X 3, CNII-XII intact, normal speechSkin: normal turgor, no rash Diagnosis, Assessment PlanFree Text A P:Laboratory Tests 04/11/23 0428:[Embedded Image Not Available] 04/11/23 0427:[Embedded Image Not Available] Imaging:CTAP reviewed 04/08CXR reviewed 04/08 Assessment:1. Acute pyelonephritis.2. Sepsis with MSSA bacteremia.3. Migrated right ureteral stent s/p removal 04/09/23.4. Acute kidney injury.5. Allergy to ertapenem.6. H/o ESBL E. coli bacteremia and UTI 2022. Plan:1. Cefazolin (day 4 total abxs).2. Pt will need 2 weeks or more of IV abxs.3. TTE pending.5. Urology following.6. Monitor CBC.7. Monitor kidney function.8. PICC line once blood cxs are neg for 48 h. at 1446 RPT #: [id number] OF REPORT PRProgress olqh4845-10-38J91:53:00L.LLDO07235118-5375QJZdzve able for patient dmajGCYJKCRKIFVCRK7733-90-26B97:46:44 [facility] 2023-04-10 22:17:00 [id number]+feYRJ+ W2VRH07T8U+UQ5BiGMYGfM+eAWpCd Foy44vXbzFhvej6ET/O1/giIN7B5652-79-19E90:17:00 [facility] Progress NoteREPORT#:[id number] REPORT STATUS: SignedREPORT INITIALIZATION DATE:04/10/23 TIME:2216 PATIENT: DAVID BELLO UNIT #: [id number]#: [id number] [address] AGE: 43 SEX: F ATTEND: Bj Oneal [facility] AUTHOR: Brett Rodriguez MDREPT SERVICE DT/TIME: 04/10/232216* ALL edits or amendments must be made on the electronic/computer document * SubjectiveChief complaint:migrated stentcomplicated utiComments:no acute eventsc/o anxiety/panic last nightpain improvedno urinary symptoms Objective GeneralVS/I O:Last Documented: Result Date Time Pulse Ox 96 04/10 1929 B/P 127/81 04/10 1929 B/P Mean 96.3 04/10 1929 O2 Delivery Room air 04/10 1929 Temp 98.2 04/10 1929 Pulse 77 04/10 1929 Resp 16 04/10 1929 O2 Flow Rate 6 04/09 1101 24 hour I O ending at 0700: 04/10 0700 04/09 1900 Intake Total 2000.00 222 Output Total Balance 2000.00 222 Intake, IV 1200.00 Intake, Oral 800 222 Number Voids 11 PATIENT WEIGHT: Weight (lb): Weight (oz): Weight (kg): 94.545 Physical ExamGeneral appearance: alert, awake, orientedRespiratory: aerating well, symmetric expansionAbdomen: soft, no rebound, no distention Diagnosis, Assessment PlanFree Text A P:A: migrated ureteral stent, recent ureteroscopycomplicated uti P: s/p cystoscopy and stent removalcontinue antibioticsfollow up cultures at 2221 RPT #: [id number] OF REPORT PRProgress knos9266-55-32M27:17:00L.NFYI68638786-7693GKIvuob able for patient ajciOGKSLJUZUBSBTE2038-68-28X90:21:39 [facility] 2023-04-10 17:39:00 [id number] GO/rb3d1Nf9Hsp/ZZf0HdxvkwkGAV KzeWysDdwVI0sjz5ByJf58eQlzw6136-75-35X34:39:00 [facility])Hospitalist Progress NoteREPORT#:[id number] REPORT STATUS: SignedREPORT INITIALIZATION DATE:04/10/23 TIME:1738 PATIENT: DAVID BELLO UNIT #: [id number]#: [id number] [address] [birth year] AGE: 43 SEX: F ATTEND: Bj Oneal MDADM AUTHOR: Bj Oneal MDREPT SERVICE DT/TIME: 04/10/231738* ALL edits or amendments must be made on the electronic/computer document * Subjective Free Text Subj NotesFree Text Subj Notes:Had episode of night terror last night that's really bothering her. She feels overwhelmed, but denies any SI/HI. Objective GeneralVS/I O:Vital Signs: Date Time Temp Pulse Resp B/P B/P Pulse O2 O2 Flow FiO2 Mean Ox Delivery Rate 04/10 1651 36.8 93 16 129/83 98.3 94 Room air 04/10 1110 36.7 78 16 119/74 89 96 Room air 04/10 0728 36.9 88 16 129/84 99 94 Room air 04/10 0317 36.4 66 16 148/90 109.6 95 04/09 2326 36.6 63 16 124/79 93.9 96 04/09 1914 36.6 61 16 113/73 86.5 95 24 hour I O ending at 0700: 04/10 0700 04/09 1900 Intake Total 1999.00 222 Output Total Balance 2000.00 222 Intake, IV 1200.00 Intake, Oral 800 222 Number Voids 11 PATIENT WEIGHT: Weight (lb): Weight (oz): Weight (kg): 94.545 Medications:Active Meds + DC'd Last 24 HrsTrazodone HCl (DESYREL) 50 MG BEDTIME PO Citalopram Hydrobromide (CeleXA) 10 MG DAILY PO Cefazolin Sodium (KEFZOL) 2 GM Q8HR IV Sterile Water (WATER FOR INJECTION) 20 MLDocusate Sodium (COLACE) 100 MG BID PO Pregabalin (LYRICA) 75 MG BID PO Diphenhydramine HCl (BENADRYL) 25 MG ONCE ONE IV (DC) Hydrocodone Bitart/Acetaminophen (NORCO 5/325) 1 TAB PACU ONCE PRN PO (DC) Hydrocodone Bitart/Acetaminophen (NORCO 10/325) 1 TAB PACU ONCE PRN PO (DC) Hydromorphone HCl (DILAUDID) 0.5 MG PACU Q10MIN PRN PRN IV (DC) Labetalol HCl (TRANDATE) 5 MG PACU Q10MIN PRN PRN IV (DC) Lactated Ringer's (LACTATED RINGERS) 1,000 ML ASDIR IV (DC) Meperidine HCl (DEMEROL) 12.5 MG PACU ONCE PRN IV (DC) Ondansetron HCl (ZOFRAN) 4 MG PACU ONCE PRN IV (DC) Ondansetron HCl (ZOFRAN) 8 MG Q8H PRN PRN PO Ondansetron HCl (ZOFRAN) 8 MG Q8H PRN PRN IV Lactated Ringer's (LACTATED RINGERS) 1,000 ML .Q10H IV Levothyroxine Sodium (SYNTHROID) 125 MCG DAILY@0700 PO Piperacillin Sod/Tazobactam Sod (ZOSYN) 3.375 GM Q8HR IV (DC) Sodium Chloride (SODIUM CHLORIDE 0.9%) 100 MLAcetaminophen (TYLENOL) 650 MG Q4H PRN PRN PO Morphine Sulfate (morphine SULFATE) 4 MG Q4H PRN PRN IV Ondansetron HCl (ZOFRAN) 4 MG Q4H PRN PRN IV (CAN) ResultsResults: labs reviewed, vital signs reviewed Free Text Obj NotesFree Text Obj Notes:General appearance: awake, no acute distressHead/Eyes: atraumatic, normal conjunctiva/sclera, normal eyelids/periorbital area, normocephalicENT: moist mucosal membranesNeck: suppleCardiovascular: regular rate rhythmRespiratory: symmetric expansion, no accessory muscle useAbdomen: soft, non-tender, no distention, no guardingExtremities: no edema, no cyanosisMusculoskeletal: normal muscle massNeuro/EARLY HEAD START TEACHER: alert, oriented X 3, normal speech, no motor deficits, no sensory deficitsSkin: dry, intact, normal color, normal temperature, no rashPsychiatry: normal affect Diagnosis, Assessment Plan Free Text DxA P NotesFree text DxA P notes:Ms. Bello is a 43-year-old woman who presents with complaint of right flank pain: #Acute complicated pyelonephritis with R ureteral stent and adjacent stone 4 mmHistory of ESBL E. coli infection, kidney stones, ureteral stentsUrine cx+ MSSA, Blood cx+ CoNSDiscussed with ID Dr. Woodardussed with urologist Dr. Rodriguez - s/p R ureteral stent removal 04/09/23 #Acute kidney injuryLikely prerenalContinue IV fluidsTrend BMP #HypokalemiaP.o. repletion #History of hypothyroidismResume levothyroxine #History of NIDDMLast A1c 6.5 11/14Recheck A1c #History of hypertensionHold losartan for SHER DVT prophylaxis SCDs pending procedure CODE STATUS: Full code at 1742 RPT #: [id number] OF REPORT PRProgress oitm0799-02-18U33:39:00L.[id number] able for patient liwoKYUPLXYWGBOCHU0159-35-72T50:42:56 [facility] 2023-04-10 13:47:00 [id number] 60mOELX3va6tXblaDVB12egJBOhGE R6cQKAU5k92ZMrJKkqzFWaFY2rK8175-85-93G69:47:00 [facility] ([facility])Infectious Dis. Progress NoteREPORT#:[id number] REPORT STATUS: SignedREPORT INITIALIZATION DATE:04/10/23 TIME:1347 PATIENT: DAVID BELLO HQIRRO JUAN PABLO UNIT #: [id number]#: [id number] [address] AGE: 43 SEX: F ATTEND: Bj Oneal [facility] AUTHOR: Paul Garrett MDREPT SERVICE DT/TIME: 04/10/23 1347* ALL edits or amendments must be made on the electronic/computer document * SubjectiveChief complaint:UTIHPI:MSSA grew in blood and urine cxs. WBC normal. Review of SystemsConstitutional:Denies: fever. Objective GeneralVS/I O:Vital Signs Date Temp Pulse Resp B/P B/P Mean Pulse Ox FiO2 04/09-04/10 36.4-36.9 61-88 16 113-148/73-90 86.5-109.6 94-96 Last Documented: Result Date Time Pulse Ox 96 04/10 1110 B/P 119/74 04/10 1110 B/P Mean 89 04/10 1110 O2 Delivery Room air 04/10 1110 Temp 36.7 04/10 1110 Pulse 78 04/10 1110 Resp 16 04/10 1110 O2 Flow Rate 6 04/09 1101 Vital Signs: Date Time Temp Pulse Resp B/P B/P Pulse O2 O2 Flow FiO2 Mean Ox Delivery Rate 04/10 1110 36.7 78 16 119/74 89 96 Room air 04/10 0728 36.9 88 16 129/84 99 94 Room air 04/10 0317 36.4 66 16 148/90 109.6 95 04/09 2326 36.6 63 16 124/79 93.9 96 04/09 1914 36.6 61 16 113/73 86.5 95 04/09 1636 36.8 69 16 124/78 93.2 95 Room air 24 hour I O ending at 0700: 04/10 0700 04/09 1900 Intake Total 2000.00 222 Output Total Balance 2000.00 222 Intake, IV 1200.00 Intake, Oral 800 222 Number Voids 11 PATIENT WEIGHT: Weight (lb): Weight (oz): Weight (kg): 94.545 Physical ExamGeneral appearance: awakeHead/Eyes: atraumatic, clear cornea, EOMI, normal conjunctiva/sclera, normal eyelids/periorb, normocephalicNeck: full range of motion, non-tender, supple/no meningismusCardiovascular: regular rate rhythmRespiratory: symmetric expansion, no distressAbdomen: non-tender, soft, no distention, no guardingExtremities: no clubbing, no cyanosisMusculoskeletal: no joint swellingNeuro/EARLY HEAD START TEACHER: alert, oriented X 3, CNII-XII intact, normal speechSkin: normal turgor, no rash Diagnosis, Assessment PlanFree Text A P:Laboratory Tests 04/10/23 0520:[Embedded Image Not Available] Imaging:CTAP reviewed 04/08CXR reviewed 04/08 Assessment:1. Acute pyelonephritis.2. Sepsis with MSSA bacteremia.3. Migrated right ureteral stent s/p removal 04/09/23.4. Acute kidney injury.5. Allergy to ertapenem.6. H/o ESBL E. coli bacteremia and UTI 2022. Plan:1. Switch Zosyn to cefazolin (day 3 total abxs).2. Pt will need 2 weeks or more of IV abxs.3. Repeat blood cxs.4. TTE.5. Urology following.6. Monitor CBC.7. Monitor kidney function.8. PICC line once blood cxs are neg for [address] [place] [address] #: [id number] OF REPORT PRProgress rsde4543-82-28U06:47:00L.[id number] able for patient fppcLJOJHCTRMFXSZW6225-07-84N61:51:58 [facility] 2023-04-10 01:53:00 [id number] f6/2zlqG+p4FY2fIM1UBKmiRdVoiy jjm3XZKj6/QYAz2f6SzAUFOObHQ1771-09-55I49:53:00 [facility] ([facility]ITALClinical NoteREPORT#:[id number] REPORT STATUS: SignedREPORT INITIALIZATION DATE:04/10/23 TIME:152 PATIENT: DAVID BELLO HQMOJGANO JUAN PABLO UNIT #: [id number]#: [id number] [address] AGE: 43 SEX: F ATTEND: Bj Oneal MDADM AUTHOR: Torsten CraigPREPT SERVICE DT/TIME: 04/10/23 0153* ALL edits or amendments must be made on the electronic/computer document * Clinical NoteNote:Nursing reported that patient complained of hallucination episodes. Arrival on the scene, patient was watching on her phone. She is alert and oriented x4, not in distress, looking upset. Per patient, she has been "perfectly fine" on Saturdayand Saturday. Today around 12:30am she heard her daughter's voice "wake up" and her mother's voice and see thing that she can't describe. She said that she foreced herself to wake her up. She had similar episode when she received a certain antibiotics long time ago. She believes that it was due to something that she received. She received Zosyn one hour prior this episode and she is on LR. Had tylenol for headache. No neuro focal deficit. Will check blood work cbc, cmp, UDS, ammonia. Will get head CT. Maybe due to side effects to zoysn. Will hold zoysn for now. at 0208 at 0820 RPT #: [id number] OF REPORT CLClinical kwkw8366-35-10S52:53:00L.[id number] able for patient vjejWOBMZTZUYSKGIA5751-15-32M50:08:27 [facility] 2023-04-09 23:10:00 [id number] uKjQdjV4HvE79rfWKrs7rCd4+DnLW 7d+FLebUKTol+hLLlvXViDaJFo03169-05-97U88:10:87284 6-0022 [facility] [address] [place] [address] PATIENT NAME: DAVID BELLO ADMIT DATE: 04/08/23ACCOUNT NO: [id number] ROOM NO: [facility] AGE: 43 REPORT TYPE: OPERATIVE REPORT SEX: F ADMITTING PHYSICIAN: Bj Oneal MD ATTENDING PHYSICIAN: Bj Oneal MD OPERATION DATE: 04/09/2023 ATTENDING SURGEON: Brett Rodriguez MD PREOPERATIVE DIAGNOSES:1. Malpositioned right ureteral stent with migration.2. Complicated urinary tract infection. POSTOPERATIVE DIAGNOSES:1. Malpositioned right ureteral stent.2. Complicated urinary tract infection. PROCEDURES PERFORMED:1. Cystoscopy.2. Right ureteroscopy.3. Right ureteral stent removal ANESTHESIA: General. ESTIMATED BLOOD LOSS: None. FINDINGS:1. No ureteral calculus.2. Prior stent removed intact. DRAINS PLACED: None. SPECIMEN OBTAINED: Urine for culture. TERMINAL SYSTEM OPERATOR: None. INDICATIONS FOR PROCEDURE: David Bello is a 43-year-old female who I previously treated for a large lower pole right renal stone. She continued to have stone fragments and underwent a ureteroscopy about a month ago by another urologist, she has ureteral stent in place and was to followup to have the stentremoved. She now comes in secondary to severe right-sided flank pain, complicated UTI. On CT imaging, the stent has migrated distally and the patientis having significant pain and discomfort related to this. On CT imaging, there appears to be a small ureteral stone at the distal ureter in the UVJ as well. Ioffered the patient a ureteroscopy for stone extraction, stent removal versus exchange. She presents for this now. PATIENT NAME: DAVID BELLO HQIRRO JUAN PABLO PROCEDURE IN DETAIL: The patient brought to the OR on 04/09/2023. She had anesthesia inducted without any complication. She was placed into a dorsal lithotomy position and the genitalia was prepped and draped in the usual standard sterile manner. At this point, I inserted a 22-Malagasy rigid cystoscopeinto the bladder. I identified the previously placed right ureteral stent, stent had migrated distally into the bladder. I placed a wire alongside the stent and pulled the prior stent out intact. I now advanced a 7-Malagasy ureteroscope alongside the stent. I navigated this to the proximal ureter. There were no findings of any stones. No bruits, no lacerations. Ureter appeared to be pole dilated. I now withdrew the ureteroscope. I elected not to replace the stent. At the beginning of the case, I also obtained urine from thecystoscope for culture. This marked completion of the procedure, the patient tolerated the procedure well. There were no complications. Dictated By: Brett Rodriguez MD Date Dictated: 04/09/2023 23:10:00Date Transcribed: 04/09/2023 23:29:35[facility]/CANDYSJob #: [id number] ID: [id number] by Brett Rodriguez MD On 04/22/2023 08:30:41 PM at 0830 PATIENT NAME: DAVID BELLO gkgepv9676-19-57T91:29:00L.[id number] lable for patient teizJFLKYNERLRSALR9915-85-17Q76:31:13 [facility] 2023-04-09 15:45:00 [id number]/Z 5laRXlzTNAn4BKsbuhDT+Ldqa93IX 4LdDs1je5cRq5qQDDbWPsuR5y4S3992-01-16M54:45:00 [facility] ([facility]ITALInfect Disease Consult NoteREPORT#:[id number] REPORT STATUS: SignedREPORT INITIALIZATION DATE:04/09/23 TIME:1544 PATIENT: DAVID BELLO UNIT #: [id number]#: [id number] [address] AGE: 43 SEX: F ATTEND: Bj Oneal [facility] AUTHOR: Paul Garrett MDREPT SERVICE DT/TIME: 04/09/231544* ALL edits or amendments must be made on the electronic/computer document * History of Present IllnessChief complaint:UTIHPI:43-year-old female with h/o recurrent UTI and ureteral stent placement, who presented with worsening severe right flank pain for 2 days associated with nausea. She sees a private urologist who is planning to take the ureteral stent out in a few weeks. History - Adult longitudinalPast medical history:Reports: Diabetes mellitus, Hypertension, Kidney disease/stones. Past surgical history:Reports: Thyroidectomy. Additional surgical history:reviewed. Kidney stone resetion.Additional family history:Mother with kidney stonesAlcohol use: Denies EtOH useDrug use: Denies recreational drugsSmoking status for patients 13 years old or older: Light tobacco smokerDate last smoked: 03/29/23Allergies:Coded Allergies:adhesive tape (Mild, HIVES 04/08/23)ertapenem (Mild, Itching 04/08/23)sumatriptan (From IMITREX) (ITCHY 04/08/23)Uncoded Allergies:CONTRAST (Mild, RASH 04/08/23) Review of SystemsConstitutional:Reports: malaise. Skin:Denies: rash. Allergy/Immun:Denies hivesEyes:Denies dischargeENT:Denies: sore throat. Respiratory:Denies: productive cough (sputum). Cardiovascular:Denies: chest pain. GI:Denies: diarrhea. :Reports: flank pain. Musculoskeletal:Denies: joint swelling. Objective GeneralVS/I O:Vital Signs Date Temp Pulse Resp B/P B/P Mean Pulse Ox FiO2 04/08-04/09 36.6-38.4 69-92 13-24 106-147/64-90 79.3-108 90-99 Last Documented: Result Date Time Pulse Ox 95 04/09 1636 B/P 124/78 04/09 1636 B/P Mean 93.2 04/09 1636 O2 Delivery Room air 04/09 1636 Temp 36.8 04/09 1636 Pulse 69 04/09 1636 Resp 16 04/09 1636 O2 Flow Rate 6 04/09 1101 Vital Signs: Date Time Temp Pulse Resp B/P B/P Pulse O2 O2 Flow FiO2 Mean Ox Delivery Rate 04/09 1636 36.8 69 16 124/78 93.2 95 Room air 04/09 1202 36.8 78 16 113/64 80.3 93 Room air 04/09 1130 80 19 116/72 94 Room air 04/09 1125 85 20 114/65 95 Room air 04/09 1120 83 20 112/64 92 Room air 04/09 1115 83 20 114/65 94 Room air 04/09 1110 86 17 118/64 95 Room air 04/09 1105 80 13 119/65 99 Room air 04/09 1101 Simple 6 mask 04/09 1100 82 16 118/66 99 Nasal 3 cannula 04/09 1055 88 20 111/65 96 Nasal 3 cannula 04/09 1050 90 24 106/66 97 Simple 6 mask 04/09 1047 36.6 87 16 115/66 97 Simple 6 mask 04/09 0922 36.6 79 16 124/70 98 Room air 04/09 0726 37.0 85 16 107/66 79.3 90 Room air 04/09 0332 37.4 92 17 131/78 95.9 93 Room air 04/08 2312 37.8 82 17 126/79 94.8 98 Room air 04/08 2042 36.8 85 17 125/79 94.3 98 Room air 04/08 1935 38.4 89 17 144/90 108 96 Room air 04/08 1730 37.2 92 16 147/76 99 96 Room air 24 hour I O ending at 0700: 04/09 0700 04/08 1900 Intake Total 100 Output Total Balance 100 Intake, Oral 100 Patient 94.545 kg Weight Weight Stated/Reported Measurement Method PATIENT WEIGHT: Weight (lb): Weight (oz): Weight (kg): 94.545 Physical ExamGeneral appearance: alert, awake, oriented, no acute distress, mental status normal, no respiratory distressHead/Eyes: atraumatic, clear cornea, EOMI, normal conjunctiva/sclera, normal eyelids/periorb, normocephalicENT: moist mucosal membranes, normal noseNeck: full range of motion, non-tender, supple/no meningismusCardiovascular: regular rate rhythmRespiratory: symmetric expansion, no distressAbdomen: non-tender, normal bowel sounds, soft, no distention, no guardingGenitourinary: flank painExtremities: no clubbing, no cyanosisMusculoskeletal: no joint swellingNeuro/EARLY HEAD START TEACHER: alert, oriented X 3, CNII-XII intact, normal speechSkin: normal turgor, no rashPsychiatry: normal affect, normal judgment/insight, normal mood Diagnosis, Assessment Plan Free Text DxA P NotesFree text DxA P notes:Laboratory Tests 04/08/23 1023:[Embedded Image Not Available] Imaging:CTAP reviewed 04/08CXR reviewed 04/08 Assessment:1. Acute pyelonephritis.2. Migrated right ureteral stent s/p removal 04/09/23.3. Acute kidney injury.4. Allergy to ertapenem.5. H/o ESBL E. coli bacteremia and UTI 2022. Plan:1. Zosyn (day 2 total abxs).2. F/u susceptiblities of S. aureus in urine cx.3. Start empiric vancomycin if pt decompensates.4. F/u blood cxs.5. Will try to switch to a PO regimen (e.g. cephalexin) based on susceptiblities.6. Linezolid is an option if pt stops taking hydrocodone and Tramadol.7. Duration: 10 days if blood cxs remain neg.8. Urology following.9. Monitor CBC.10. Monitor kidney function. Thank you for this consult. at 1724 RPT #: [id number] OF REPORT MIWprewitjvjyq6846-85-82B22:45:00L.SJQT74990599-6 175AVAvailable for patient qgeaOKXBJYXNUEWLZH4828-64-25J76:24:36 [facility] 2023-04-09 11:26:00 [id number] Shct7s+R6tk9iu3AFLW8YV9P4k3q+ nifuebA5AXfHpXzK+s5qyQ+jrst8144-78-03B21:26:00 [facility] ([facility])Post Anesthesia EvaluationREPORT#:[id number] REPORT STATUS: SignedREPORT INITIALIZATION DATE:04/09/23 TIME:1125 PATIENT: DAVID BELLO UNIT #: [id number]#: [id number] [facility] AGE: 43 SEX: F ATTEND: Bj Oneal MDADM AUTHOR: Radha Olivier MDREPT SERVICE DT/TIME: 04/09/23 1126* ALL edits or amendments must be made on the electronic/computer document * Post Anesthesia Evaluation Anes. changes from pre-op evalORM Surgeries: Surgery Date and Time: 04/09/2023 0930 Primary Procedure: CYSTOSCOPY URETEROSCOPY Anesthetic: general LMADate: 04/09/23Level of consciousness: no change, patient awake, able to answer questions, participate in this eval.Vital signs:Last Documented: Result Date Time Pulse Ox 99 04/09 1105 B/P 119/65 04/09 1105 O2 Delivery Room air 04/09 1105 Pulse 80 04/09 1105 Resp 13 04/09 1105 O2 Flow Rate 6 04/09 1101 Temp 36.6 04/09 1047 B/P Mean 79.3 04/09 0726 Cardiovascular: no change, CV system stable, vital signs stableRespiratory/Airway: respiratory system stable, maintains without supportPain: adequately controlledHydration: euvolemicTemp status: normothermicPresence of N/V: noAnesthesia complications: noConclusions: no apparent anes. issues at 1127 RPT #: [id number] OF REPORT CLClinical yalf8934-72-35K94:26:00L.[id number] able for patient bkmnZQHIIDUOITXQWR0461-99-66B87:27:41 [facility] 2023-04-09 10:58:00 [id number] bHNFAZ/k4/xobD5umpA/0GSJhztfj PN7od19NcdT/XwETm/NhVTSasnd0700-38-03O99:58:00 [facility] ([facility])Brief Op NoteREPORT#:[id number] REPORT STATUS: SignedREPORT INITIALIZATION DATE:04/09/23 TIME:1058 PATIENT: DAVID BELLO HQMOJGANO JUAN PABLO UNIT #: [id number]#: [id number] [address] AGE: 43 SEX: F ATTEND: Bj Oneal [facility] AUTHOR: Brett Rodriguez MDREPT SERVICE DT/TIME: 04/09/23 1058* ALL edits or amendments must be made on the electronic/computer document * Op/Inv Proc Note - BriefPre-procedure diagnosis:migrated ureteral stent, ureteral calculi RPost-procedure diagnosis: same as pre procedure dxProcedures performed:right ureteroscopy, stent removal, cystoscopyPrimary Surgeon:JenniferAssistant(s): noneFindings:no ureteral calculi to proximal ureterComplications: noneEstimated blood loss in ml's: noneSpecimens removed/altered: noneDrain(s): None at 1059 RPT #: [id number] OF REPORT OPOperative jqkeop7526-88-92I69:58:00L.QZLQ76423457-9492ESDdz ilable for patient xeckBOYODLIDNZEFOK2102-23-40L21:59:19 [facility] 2023-04-09 10:41:00 [id number] wk4FYZjXZmg37ByUcsI+wp7FsUUTY EfzR6nJCSsZ13x+Nu67UxJCO21C3580-28-39Q36:41:00 [facility]Hospital[facility] Progress NoteREPORT#:[id number] REPORT STATUS: SignedREPORT INITIALIZATION DATE:04/09/23 TIME:104 PATIENT: DAVID BELLO UNIT #: [id number]#: [id number] [address] AGE: 43 SEX: F ATTEND: Bj Oneal [facility] AUTHOR: Bj OnealEPT SERVICE DT/TIME: 04/09/23 1041* ALL edits or amendments must be made on the electronic/computer document * Subjective Free Text Subj NotesFree Text Subj Notes:No acute events overnight. Planning for OR today. Objective GeneralVS/I O:Vital Signs: Date Time Temp Pulse Resp B/P B/P Pulse O2 O2 Flow FiO2 Mean Ox Delivery Rate 04/09 0922 36.6 79 16 124/70 98 Room air 04/09 0726 37.0 85 16 107/66 79.3 90 Room air 04/09 0332 37.4 92 17 131/78 95.9 93 Room air 04/08 2312 37.8 82 17 126/79 94.8 98 Room air 04/08 2042 36.8 85 17 125/79 94.3 98 Room air 04/08 1935 38.4 89 17 144/90 108 96 Room air 04/08 1730 37.2 92 16 147/76 99 96 Room air 04/08 1304 37.4 98 16 118/53 74 97 Room air 24 hour I O ending at 0700: 04/09 0700 04/08 1900 Intake Total 100 Output Total Balance 100 Intake, Oral 100 Patient 94.545 kg Weight Weight Stated/Reported Measurement Method PATIENT WEIGHT: Weight (lb): Weight (oz): Weight (kg): 94.545 Medications:Active Meds + DC'd Last 24 HrsKetamine HCl (KETAMINE 50MG/ML 10ML) 0 .STK-MED ONE .ROUTE (DC) Sodium Chloride (SODIUM CHLORIDE 0.9%) 10 ML .STK-MED ONE IV (DC) Fentanyl Citrate (SUBLIMAZE) 0 .STK-MED ONE .ROUTE (DC) Glycopyrrolate (RobinuL) 0 .STK-MED ONE .ROUTE (DC) Lidocaine HCl (XYLOCAINE) 0 .STK-MED ONE .ROUTE (DC) Midazolam HCl (VERSED) 0 .STK-MED ONE .ROUTE (DC) Propofol (DIPRIVAN) 20 ML .STK-MED ONE IV (DC) Ceftriaxone Sodium (ROCEPHIN) 2,000 MG Q24H IV (CAN) Sterile Water (WATER FOR INJECTION) 20 MLLactated Ringer's (LACTATED RINGERS) 1,000 ML .Q10H IV Levothyroxine Sodium (SYNTHROID) 125 MCG DAILY@0700 PO Piperacillin Sod/Tazobactam Sod (ZOSYN) 3.375 GM Q8HR IV Sodium Chloride (SODIUM CHLORIDE 0.9%) 100 MLSodium Chloride (0.9% Sodium Chloride) 1,000 ML .Q8H IV (DC) Nitrofurantoin Macrocrystals (MACROBID) 100 MG BID PO (DC) Acetaminophen (TYLENOL) 650 MG Q4H PRN PRN PO Morphine Sulfate (morphine SULFATE) 4 MG Q4H PRN PRN IV Ondansetron HCl (ZOFRAN) 4 MG Q4H PRN PRN IV Sodium Chloride (0.9% Sodium Chloride) 1,000 ML X1ED STA IV (DC) Ceftriaxone Sodium (ROCEPHIN) 1,000 MG X1ED STA IV (DC) Sterile Water (WATER FOR INJECTION) 10 ML Dietitian nutrition assessment ResultsResults: labs reviewed, vital signs reviewed Free Text Obj NotesFree Text Obj Notes:General appearance: awake, no acute distressHead/Eyes: atraumatic, normal conjunctiva/sclera, normal eyelids/periorbital area, normocephalicENT: moist mucosal membranesNeck: suppleCardiovascular: regular rate rhythmRespiratory: symmetric expansion, no accessory muscle useAbdomen: soft, non-tender, no distention, no guardingExtremities: no edema, no cyanosisMusculoskeletal: normal muscle massNeuro/EARLY HEAD START TEACHER: alert, oriented X 3, normal speech, no motor deficits, no sensory deficitsSkin: dry, intact, normal color, normal temperature, no rashPsychiatry: normal affect Diagnosis, Assessment Plan Free Text DxA P NotesFree text DxA P notes:Ms. Bello is a 43-year-old woman who presents with complaint of right flank pain: #Acute complicated pyelonephritis with R ureteral stent and adjacent stone 4 mmHistory of ESBL E. coli infection, kidney stones, ureteral stentsStart IV Zosyn based on prior cultureID consultUrology was consulted from the ER plan for endoscopy today #Acute kidney injuryLikely prerenalContinue IV fluidsTrend BMP #HypokalemiaP.o. repletion #History of hypothyroidismResume levothyroxine #History of NIDDMLast A1c 6.5 11/14Recheck A1c #History of hypertensionHold losartan for SHER DVT prophylaxis SCDs pending procedure CODE STATUS: Full code at 1048 RPT #: [id number] OF REPORT PRProgress lmaj8736-83-37V77:41:00L.[id number] able for patient tazmRUQYYTHKQBJQDP5605-98-05X24:48:29 [facility] 2023-04-09 09:27:00 [id number] lazara/T7YvS4NCjcvjboG3NOphlEBi6 NKfyqwQvrqSN3RoFW8SeyEX/5q91238-04-37G90:27:84149 6-[address] [address] PATIENT NAME: DAVID BELLO HQIRRO JUAN PABLO ADMIT DATE: 04/08/23ACCOUNT NO: [id number] ROOM NO: LS203 AGE: 43 REPORT TYPE: CONSULTATION SEX: F ADMITTING PHYSICIAN: Bj Oneal MD ATTENDING PHYSICIAN: Bj Oneal MD CONSULTATION DATE: 04/09/2023 CONSULTING PHYSICIAN: Brett Rodriguez MD REQUESTING PHYSICIAN: Dr. Nava REASON FOR CONSULTATION: Retained ureteral stent, complicated UTI. HISTORY OF PRESENT ILLNESS: David Bello is a 43-year-old female who had previously gotten for right ureteral and right renal calculus in the setting of pyelonephritis. She previously underwent stent placement and follow up ureteroscopy. The patient continued to have nonobstructing right renal stone and saw urologist, where she underwent a repeat right ureteroscopy. Stent was placed. She was to have followed up with urologist, but states she has not beenable to do so. She returns secondary to right flank pain, fevers, and chills. A CT scan showed that the stents in place. No residual stones in the kidney or alongside the stent in the ureter. However, the stent is malpositioned. The patient is currently feeling pain. I have been consulted for this. I personally have reviewed her outside operative reports as well and there are no findings of any ureteral injury or laceration requiring prolonged stent placement. REVIEW OF SYSTEMS: Positive for fevers and chills. Positive for nausea, no vomiting. No chest pain or shortness of breath. Positive for dysuria, no grosshematuria. Otherwise, negative 10-point review of systems. PAST MEDICAL HISTORY:1. Kidney stones.2. Diabetes.3. Hypertension.4. Renal insufficiency. PAST SURGICAL HISTORY:1. Ureteroscopy.2. Thyroidectomy. SOCIAL HISTORY: Positive for tobacco. FAMILY HISTORY: Noncontributory. PHYSICAL EXAMINATION:VITAL SIGNS: T-max of 101.3, T-current is 97.9, pulse is 79, blood pressure PATIENT NAME: DAVID BELLO 124/70.GENERAL: The patient is not in acute distress, awake, oriented.HEENT: Atraumatic, normocephalic. EOMI.NECK: Supple. Trachea midline.LUNGS: Normal respiratory effort, nonlabored breathing.ABDOMEN: Soft. No rebound or guarding.BACK: No CVA tenderness.EXTREMITIES: No clubbing, cyanosis or edema. PERTINENT LABORATORY DATA: Her white count is 10, hemoglobin count of 11.8, creatinine of 1.3, with a BUN of 9. Urinalysis shows positive leukocyte esterase, positive nitrites, positive rbc's and wbc's with bacteria. PERTINENT IMAGING: A CT scan obtained yesterday shows right ureteral stent in place with the distal portion of the urinary bladder, no hydronephrosis, a 4-mm stone adjacent to the stent near the right DVJ, moderate perinephric stranding with mild induration involving the proximal portion of the right ureter suggesting inflammation or infection. ASSESSMENT AND PLAN: The patient with pyelonephritis, migrated ureteral stent, the stent is malpositioned. The patient is having pain related to this. There may be a stone in the proximal ureter alongside the stent. I offered the patient stent repositioning versus stent removal, I will try to extract the stone in the same setting. The patient currently is also with complicated UTI and possible pyelonephritis. I agree with empiric broad-spectrum antibiotics. Further recommendations, pending her clinical course. Dictated By: Brett Rodriguez MD Date Dictated: 04/09/2023 09:27:59Date Transcribed: 04/09/2023 10:28:15TELLO/Taj #: [id number] ID: [id number] by Brett Rodriguez MD On 04/22/2023 08:30:55 PM at 0830 PATIENT NAME: DAVID BELLO :28:00L.ME [id number] for patient wkcpGOLAPWYCDXLIEV1363-92-89Z00:31:22 [facility] 2023-04-08 20:20:00 [id number] NZq6Qi/VAlLjUGT85YmCTZGCq9NxE j0w/fNTWYvvnafvZGhBwZaXCsoO9432-50-01L64:20:00 [facility] HospitalHospitalist History PhysicalREPORT#:[id number] REPORT STATUS: SignedREPORT INITIALIZATION DATE:04/08/23 TIME:2019 PATIENT: DAVID BELLO UNIT #: [id number]#: [id number] [address] AGE: 43 SEX: F ATTEND: Bj Oneal MDADM AUTHOR: Bj Oneal MDREPT SERVICE DT/TIME: 04/08/232019* ALL edits or amendments must be made on the electronic/computer document * History of Present Illness HPIChief complaint:Right flank painPCP:PCP: Jam Tolliver MD HPI:Ms. Bello is a 43-year-old woman who presents with right flank pain for 2 days. She has had recurrent issues with complicated UTIs and ureteral stent placement for the last 5 months and is understandably frustrated. Has been on multiple end of antibiotics. She sees a private urologist who is planning to take the ureteral stent out in a few weeks. However the last 2 days the patientdeveloped severe right flank pain, nausea, and anorexia. Denies alcohol use. Smokes a few cigarettes a day. Has been told her kidney stones are calcium oxalate but etiology is unclear. HistoryPast medical history:Reports: Diabetes mellitus, Hypertension, Kidney disease/stones. Past surgical history:Reports: Thyroidectomy. Additional surgical history:reviewed. Kidney stone resetion.Additional family history:Mother with kidney stonesAlcohol use: Denies EtOH useDrug use: Denies recreational drugsSmoking status for patients 13 years old or older: Light tobacco smokerDate last smoked: 03/29/23 Medication/Allergy-Vaccine HxAllergies:Coded Allergies:adhesive tape (Mild, HIVES 04/08/23)ertapenem (Mild, Itching 04/08/23)sumatriptan (From IMITREX) (ITCHY 04/08/23)Uncoded Allergies:CONTRAST (Mild, RASH 04/08/23) Review of SystemsAll systems rev neg: except as marked Objective GeneralMedications:Active Meds + DC'd Last 24 HrsCeftriaxone Sodium (ROCEPHIN) 2,000 MG Q24H IV (CANr) Sterile Water (WATER FOR INJECTION) 20 MLLactated Ringer's (LACTATED RINGERS) 1,000 ML .Q10H IV (UNV) Levothyroxine Sodium (SYNTHROID) 125 MCG .[DAILY 0700] PO (UNV) Piperacillin Sod/Tazobactam Sod (ZOSYN) 3.375 GM Q8HR IV (UNVr) Sodium Chloride (SODIUM CHLORIDE 0.9%) 100 MLSodium Chloride (0.9% Sodium Chloride) 1,000 ML .Q8H IV (DCr) Nitrofurantoin Macrocrystals (MACROBID) 100 MG BID PO (DCr) Acetaminophen (TYLENOL) 650 MG Q4H PRN PRN PO Morphine Sulfate (morphine SULFATE) 4 MG Q4H PRN PRN IV Ondansetron HCl (ZOFRAN) 4 MG Q4H PRN PRN IV Sodium Chloride (0.9% Sodium Chloride) 1,000 ML X1ED STA IV (DC) Ceftriaxone Sodium (ROCEPHIN) 1,000 MG X1ED STA IV (DC) Sterile Water (WATER FOR INJECTION) 10 MLAcetaminophen (TYLENOL EXTRA STRENGTH) 1,000 MG X1ED STA PO (DC) Morphine Sulfate (morphine SULFATE) 4 MG X1ED STA IV (DC) Ondansetron HCl (ZOFRAN) 4 MG X1ED STA IV (DC) Sodium Chloride (0.9% Sodium Chloride) 2,836.35 ML X1ED STA IV (DC) ResultsResults: labs reviewed, vital signs reviewed Free Text Obj NotesFree Text Obj Notes:General appearance: awake, no acute distressHead/Eyes: atraumatic, normal conjunctiva/sclera, normal eyelids/periorbital area, normocephalicENT: moist mucosal membranesNeck: suppleCardiovascular: regular rate rhythmRespiratory: symmetric expansion, no accessory muscle useAbdomen: soft, non-tender, no distention, no guardingExtremities: no edema, no cyanosisMusculoskeletal: normal muscle massNeuro/EARLY HEAD START TEACHER: alert, oriented X 3, normal speech, no motor deficits, no sensory deficitsSkin: dry, intact, normal color, normal temperature, no rashPsychiatry: normal affect Diagnosis, Assessment Plan Free Text DxA P NotesFree Text DxA P Notes:Ms. Bello is a 43-year-old woman who presents with complaint of right flank pain: #Acute complicated pyelonephritis with R ureteral stent and adjacent stone 4 mmHistory of ESBL E. coli infection, kidney stones, ureteral stentsStart IV Zosyn based on prior cultureID consultUrology was consulted from the ER plan for endoscopy tomorrow. N.p.o. after midnight. #Acute kidney injuryLikely prerenalContinue IV fluidsTrend BMP #HypokalemiaP.o. repletion #History of hypothyroidismResume levothyroxine #History of NIDDMLast A1c 6.5 11/14Recheck A1c #History of hypertensionHold losartan for SHER DVT prophylaxis SCDs pending procedure CODE STATUS: Full code at 0741 RPT #: [id number] OF REPORT HPHistory and physical ugasttmysta1332-41-59A42:20:00L.[id number] AVAvailable for patient wgefRKPGXKPBDAINDY7995-76-77O43:42:05 [facility] 2023-04-08 09:52:00 [id number] 6vqDZ5tiTVV/FssUzvRD3m1g4ocC2 UYspv0U9UpEdXqF1wVyKo0V5dbG0369-13-77B22:52:00 [facility] HospitalEMERGENCY PROVIDER REPORTREPORT#:[id number] REPORT STATUS: SignedDATE:04/08/23 TIME:951 PATIENT: DAVID BELLO #: [id number]#: [id number] [address] AGE: 43 SEX: F PCP PHYS: Jam Tolliver MDSERVICE AUTHOR: Trinh Schumacher * ALL edits or amendments must be made on the electronic/computer document * Trinh Schumacher 04/08/23 0952:HPI- Female Free Text HPI NotesFree Text HPI Lpahs54-ickn-pnm female with history of hypertension and ureteral stents for ureterolithiasis presents to ED with 2 days of bilateral flank pain, subjective fever, chills, nausea without vomiting. She also reports dysuria with urinary frequency and malodorous urine. Stent was placed last month by urologist at [facility]; ever, her previous urologist is Dr. Rodriguez. Previous urine cultures reviewed. Patient with history of ESBL sensitive to nitrofurantoin. Resistant to Rocephin. Will add p.o. nitrofurantoin GeneralConfirmed Patient YesInitial Greet Date/Time 04/08/23 0940 PresentationChief Complaint Dysuria, Flank pain R, Flank pain L)( Sudden in Onset? No Review of Systems ROS StatementsAll systems rev neg except as marked. Free Text ROS NotesFree Text ROS NotesPer HPI Past Medical History - AdultStated Complaint ABD PAIN, BURNING DURING URINATION, CHILLSAllergiesCoded Allergies:adhesive tape (Mild, HIVES 04/08/23)ertapenem (Mild, Itching 04/08/23)sumatriptan (From IMITREX) (ITCHY 04/08/23)Uncoded Allergies:CONTRAST (Mild, RASH 04/08/23) Home MedicationsActive ScriptsLOSARTAN (COZAAR) 25 MG PO DAILY 1800 LOSARTAN (COZAAR) 25 MG PO DAILY 1800 #30 TAB Ref 1 Prov: 11/04/22LEVOTHYROXINE (SYNTHROID) 125 MCG PO DAILY 0700 LEVOTHYROXINE (SYNTHROID) 125 MCG PO DAILY 0700 #30 TAB Ref 1 Prov: 11/04/22 Discontinued ScriptsNITROFURANTOIN/NITROFURAN MAC (MACROBID) 100 MG PO BID 7 Days #14 CAPS Prov: 12/14/22 DC: 04/08/23 1748 DC prior to admit Reported MedicationsSEMAGLUTIDE (OZEMPIC PEN (4 MG/3mL)) 1 MG SUBQ Q7D Calculated Suicide Risk (nurs) No riskPast Medical History:Reports: Diabetes mellitus, Hypertension, Kidney disease/stones. Past Surgical History:Reports: Thyroidectomy. Additional Surgical Historyreviewed. Kidney stone resetion.Additional Family HistoryMother with kidney stonesAlcohol Use Denies EtOH useDrug Use Denies recreational drugsSmoking status for patients 13 years old or older: Never Smoker Physical Exam Vital SignsVital SignsFirst Documented: Result Date Time Pulse Ox 100 04/08 0939 B/P 136/84 04/08 0939 B/P Mean 101 04/08 0939 O2 Delivery Room air 04/08 0939 Temp 38.5 04/08 0939 Pulse 99 04/08 0939 Resp 17 04/08 0939 Last Documented: Result Date Time Pulse Ox 97 04/08 1304 B/P 118/53 04/08 1304 B/P Mean 74 04/08 1304 O2 Delivery Room air 04/08 1304 Temp 37.4 04/08 1304 Pulse 98 04/08 1304 Resp 16 04/08 1304 Review of Vital Signs Reviewed Free Text PE NotesFree Text PE NotesGen: Easily uncomfortable but nontoxic-appearingHead: Normocephalic, atraumaticEyes: Anicteric sclera, No conjunctival injection or exudateEars: TMs intact bilaterally with good landmarks, no erythema. EAC patent without swelling, erythema, or drainage. No mastoid swelling or TTPNose: no nasal drainage or sinus TTPThroat: OP clear without exudates, no tonsillar hypertrophy or uvular shift. Moist mucous membranes, handling secretions. Trachea midline. No thyromegalyNeck: FROM, no midline TTP or meningismus Lungs: CTAB no R/R/W, good air movement. No stridor or accessory muscle use. Heart: Tachycardic due to pain and fever no m/g/r. No peripheral edemaAbd: S/NT/ND no rebound, guarding, or peritoneal sxs. No palpable masses or pulsetile masses. Negative [place] Sign. No TTP at [place] bilateral flank pain greater on the rightExt: FROM BUE/LE. No swelling or deformity. Calves supple bilaterally. 2+ distalpulses, NVINeuro: A O x 3, GCS 15, CN I-XII grossly intact without focal deficit. Psych: Normal mood and affect. Interpretation Diagnostics Lab Results InterpretationResultsLaboratory Tests 04/08/23 1023:[Embedded Image Not Available]Laboratory Tests: 04/08 04/08 1024 1024 Urines Urine Color (YEL/STRAW discript) STRAW Urine Appearance (CLEAR discript) SL CLOUDY Urine pH (5.0 - 7.0 pH UNITS) 7.0 Ur Specific [place] (1.005 - 1.030 SG) 1.010 Urine Protein (NEG mg/dL) TRACE H Urine Glucose (UA) (NEG mg/dL) NEGATIVE Urine Ketones (NEG mg/dL) TRACE Urine Blood (NEG mg/DL) 3+ H Urine Nitrite (NEG SCREEN) POSITIVE H Urine Bilirubin (NEG mg/dL) NEGATIVE Urine Urobilinogen (<2.0 mg/dL) 0.2 Ur Leukocyte Esterase (NEGATIVE Leuk/mcL) 3+ H Urine RBC (0 - 3 #RBC/HPF) 3-5 H Urine WBC (0 - 3 #WBC/HPF) 10-20 H Ur Squamous Epith Cells (NONE /HPF) TRACE Urine Bacteria (NONE - TRACE /HPF) 1+ H Urine Mucus (NONE SEEN /LPF) 1+ Urine Yeast (NONE SEEN /HPF) TRACE H Urine Culture Screen (Culture CHK Criteria) YES,WBC>10 EPI<25 Urine HCG, Qual (NEGATIVE) NEGATIVE 04/08 04/08 1023 1023 Chemistry Sodium (134 - 147 mmol/L) 134 Potassium (3.4 - 5.0 mmol/L) 3.3 L Chloride (100 - 108 mmol/L) 100 Carbon Dioxide (21 - 32 mmol/L) 27 Anion Gap (4.0 - 15.0 GAP calc) 7.0 BUN (7 - 18 MG/DL) 9 Creatinine (0.6 - 1.0 MG/DL) 1.3 H Glomerular Filtr Rate (>60 estGFR) 52 L Glucose (70 - 110 MG/DL) 129 H Lactic Acid (0.4 - 2.0 mmol/L) 1.1 Calcium (8.5 - 10.1 MG/DL) 8.7 Total Bilirubin (0.2 - 1.2 MG/DL) 1.10 Direct Bilirubin (0.00 - 0.30 MG/DL) 0.30 Indirect Bilirubin (0.2 - 1.2 MG/DL) 0.80 AST (15 - 37 Unit/L) 23 ALT (12 - 78 Unit/L) 30 Total Alk Phosphatase (45 - 117 Unit/L) 71 Troponin I High Sens (0 - 54 ng/L) 5.2 Total Protein (6.4 - 8.2 G/DL) 8.3 H Albumin (3.4 - 5.0 G/DL) 3.4 Hematology WBC (3.5 - 11.0 K/mm3) 10.0 RBC (4.70 - 6.10 M/mm3) 4.74 Hgb (10.4 - 14.9 G/DL) 11.8 Hct (31.5 - 44.1 %) 36.7 MCV (84.5 - 98.6 Fl) 77.4 L MCH (27.0 - 34.2 pg) 24.9 L MCHC (31.5 - 34.0 G/DL) 32.2 RDW (11.5 - 14.5 SD) 14.4 Plt Count (150 - 450 K/mm3) 295 MPV (7.0 - 10.5 fL) 10.90 H Neut % (Auto) (40 - 76 %) 84.0 H Lymph % (Auto) (20.5 - 51.1 %) 8.0 L Piatt % (Auto) (1.7 - 9.3 %) 7.3 Eos % (Auto) (0.0 - 6.0 %) 0.1 Baso % (Auto) (0.0 - 2.0 %) 0.2 Neut # (Auto) (1.8 - 7.6 K/mm3) 8.4 H Lymph # (Auto) (0.6 - 3.2 K/mm3) 0.8 Piatt # (Auto) (0.3 - 1.1 K/mm3) 0.7 Eos # (Auto) (0.0 - 0.4 K/mm3) 0.0 Baso # (Auto) (0.0 - 0.1 K/mm3) 0.0 Abs Immat Gran (auto) (0.00 - 0.03 x10 3/uL) 0.04 H Immature Gran % (0.0 - 5.0 %) 0.4 Nucleated RBC % (0.0 - 1.0 /100WBC%) 0.0 Microbiology: Date/Time Procedure - Status Source Growth 04/08 1218 Urine Culture - RES URINE COAG POS STAPHYLOCOCCUS 04/08 1024 Blood Culture - RES BLOOD 04/08 1024 Blood Culture - RES BLOOD Recent Impressions:CAT SCAN - CT ABD PELVIS W/O CONT 04/08 1024 Report Impression - Status: SIGNED Entered: 04/08/2023 1224 IMPRESSION:There is a stent in the right renal collecting system with the distalportion in the urinary bladder. No evidence of significanthydronephrosis. A 4 mm stone is present adjacent to the stent nearthe right ureterovesicular junction. Moderate right perinephricstranding and mild induration involving the proximal portion of theright ureter suggest infection or inflammation.Impression By: [email or web address] - Feliciano Barriga M.D.RADIOLOGY - XR CHEST 1 V 04/08 1107 Report Impression - Status: SIGNED Entered: 04/08/2023 1108 IMPRESSION: No radiographic evidence for acute pulmonary abnormality.Impression By: [email or web address] - Shaq Pena M.D. Lab Imaging StatementLaboratory radiographic studies reviewed and considered in the medical decision-making. Re-Evaluation MDM Free Text MDM NotesFree Text MDM NotesPatient tachycardic and febrile on arrival with 2 SIRS criteria. Sepsis bundle was initiated with blood cultures, lactic acid drawn prior to IV antibiotics. Will start with Rocephin to cover likely source given ureteral stents. Patient reports that she has not ertapenem allergy but can take another penicillins. Will start with 1 L NS bolus pending lactic acid. Lactic acid and WBC wnl. NOT Sepsis. Re-Evaluation/ProgressRe-Evaluation/Progress Text/Dict Notepain better controlled Time of Re-Eval 1235 Re-Eval Status Improved ED CourseMedication(s) OrderedMedication(s) Ordered:Anti-Infective Agents Sig/Mona Start time Last Medication Dose Route Stop Time Status Admin Ceftriaxone Sodium 1,000 MG X1ED STA 04/08 0950 DC 04/08 Sterile Water 10 ML IV 04/08 1949 1046 Central Nervous System Agents Sig/Mona Start time Last Medication Dose Route Stop Time Status Admin Morphine Sulfate 4 MG Q4H PRN PRN 04/08 1730 AC 04/09 IV 04/11 1729 0644 Electrolytic, Caloric, And Aba Sig/Mona Start time Last Medication Dose Route Stop Time Status Admin Sodium Chloride 1,000 ML .Q8H 04/09 0000 DC 04/09 IV 04/09 1618 0722 Sodium Chloride 1,000 ML X1ED STA 04/08 1527 DC 04/08 IV 04/08 2326 1721 Gastrointestinal Drugs Sig/Mona Start time Last Medication Dose Route Stop Time Status Admin Ondansetron HCl 4 MG Q4H PRN PRN 04/08 1730 AC IV 05/08 1729 ConsultationConsultation 1 Referral/Consult Name Sarah Lizarraga MD Shell Sieve Operator Called Urology Requested Call Time 1230 Requested Call Date 04/08/23 Call Returned Call not returnedConsultation 2 Referral/Consult Name; Sarah Lizarraga MD Shell Sieve Operator Called Urology Requested Call Time 1337 Requested Call Date 04/08/23 Call Returned Call not returnedConsultation 3 Referral/Consult Name; Brett Rodriguez MD Shell Sieve Operator Called Urology Shell Sieve Operator Discussed with retirement sales consultant, will take to OR tomorrow Requested Call Time 1716 Requested Call Date 04/08/23 Call Returned Call returned Call Returned Time 1716 Call Returned Date 04/08/23 MDM-ComplexitySeverity/Chronicity Evaluationpyelonephritis, retained ureteral stent- displaced MDM-Independent InterpretationMy Other Test InterpretationCT A/P with retained ureteral stent partially in bladder Patient Discharge Departure Vital Signs/ConditionVital SignsFirst Documented: Result Date Time Pulse Ox 100 04/08 0939 B/P 136/84 04/08 0939 B/P Mean 101 04/08 0939 O2 Delivery Room air 04/08 0939 Temp 38.5 04/08 0939 Pulse 99 04/08 0939 Resp 17 04/08 0839 Last Documented: Result Date Time Pulse Ox 97 04/08 1304 B/P 118/53 04/08 1304 B/P Mean 74 04/08 1304 O2 Delivery Room air 04/08 1304 Temp 37.4 04/08 1304 Pulse 98 04/08 1304 Resp 16 04/08 1304 All vital signs available at the time of this entry have been reviewed. Clinical ImpressionClinical ImpressionPrimary Impression: PyelonephritisSecondary Impressions: SHER (acute kidney injury), Retained ureteral stent Disposition DecisionHospitalize Hosp Physician Name Bj Oneal MD Hosp Physician Hospitalist Request Time 171 Request Date 04/08/23 )( Accepts Hospitalization Yes )( Reason for Hospitalizationdisplaced ureteral stent with infection and pyelonephritis )( Accepted Time 171 )( Accepted Date 04/08/23 Call Information will see patient Discharge/Care PlanCounseled Regarding Diagnosis, Lab results, Imaging studies, Need for admission Shaq Coats 04/09/23 1224:Patient Discharge Departure Supervising Physician Note MidLv Saw Pt AloneI have reviewed the PA/PRODUCT DEVELOPMENT CARPENTER's note and plan of care. I was available for consultation as needed at all times during the patient's visit in the emergency department. I agree with the clinical impression, plan and disposition. at 1750 at 1224 [facility] #: [id number] OF REPORTEDEmerozarks community hospital department btyfdn2355-31-29U81:52:00L.[id number] ilable for patient vsbkRVMIEXMRYQUDSB5078-04-69T53:51:01 [facility] 2022-12-15 00:35:00 [id number] CYQrVwZ8aRVDG7NzixfEPbgW99kaW /O0QTQRSMkX624jzf27jcxDFA5224-35-73I68:35:69692 [address] [place] [address] PATIENT NAME: DAVID BELLO HQIRRO N ADMIT DATE: 12/14/22ACCOUNT NO: [id number] ROOM NO: AGE: 42 REPORT TYPE: OPERATIVE REPORT SEX: F ADMITTING PHYSICIAN: ATTENDING PHYSICIAN: Brett Rodriguez MD OPERATION DATE: 12/14/2022 ATTENDING SURGEON: Brett Rodriguez MD TERMINAL SYSTEM OPERATOR: PREOPERATIVE DIAGNOSIS: Right renal calculus. POSTOPERATIVE DIAGNOSIS: Right renal calculus. PROCEDURE PERFORMED:1. Right ureteroscopy and pyeloscopy.2. Laser lithotripsy.3. Retrograde pyelogram with interpretation.3. Right ureteral stent removal. FINDINGS:1. A 2 cm UPJ stone.2. Minimal right hydronephrosis. DRAINS PLACED: None. SPECIMEN OBTAINED: Stone for analysis. ANESTHESIA: General. INDICATIONS FOR PROCEDURE: Mr. Bello is a 42-year-old female who previouslypresented with an obstructing UPJ stone. She had complicated urinary tractinfection. She underwent emergent ureteral stent placement. She has completedher course of IV antibiotics. She now presents for a followup ureteroscopy toaddress the stone and the stent. I went over the indications, nature ofprocedure and associated risks and possible complications. DESCRIPTION: The patient was brought to the OR on 12/14/2022. The patient hadanesthesia inducted without any complication. She was placed into a dorsallithotomy position. Genitalia was prepped and draped in the usual standardsterile manner. At this point, I inserted a 22-Malagasy cystourethroscope intothe bladder. I identified the previously placed right ureteral stent. I placeda wire alongside the stent into the renal pelvis. On fluoroscopy imaging,radiopaque stone was seen in the vicinity of the UPJ, approximately 2 cm. Radha removed the prior stent out intact. I now advanced a 10-Malagasy dual lumenureteral catheter over the wire and then advanced an 02/04 7-Malagasy 28 cm PATIENT NAME: DAVID BELLO HQIRRO N access sheath to the proximal ureter. I then navigated a 7-Malagasy flexible ureteroscope through the access sheath and advanced this to the renal pelvis. The stone was encountered in the UPJ. I performed laser lithotripsy with a thulium laser. This did take an extensive period of time due to the size of the stone and hardness of the stone. At completion of this, larger stone fragments were basket extracted, remainder was deemed to be passable dust. I performed a pyelogram, which showed minimal hydronephrosis. I used this to map all the calices, which I then systematically explored. There was no findings of any significant stones, no masses or lesions. I withdrew the scope, visualizing the entirety of the ureter. There were no major lacerations or tears. I elected not to replace the stent. The bladder was drained. This marked completion of the procedure. The patient tolerated the procedure well. There were no complications. Dictated By: Brett Rodriguez MD Date Dictated: 12/15/2022 00:35:48Date Transcribed: 12/15/2022 01:06:53[facility]/BRY/Sandie #: [id number] ID: [id number] and Edited by Brett Rodriguez MD On 12/18/22 11:31:44 AM at 1135 PATIENT NAME: DAVID BELLO HQLONNIE Hernandez efxbsr6160-05-64U31:06:00L.[id number] lable for patient ztgnTYZIOLJVQJXUKL0200-32-57D90:36:32 [facility] 2022-12-14 09:35:00 [id number] 21jMfqS1GU5dGrnxORrNdLzYbpWq5 pfwtYOOwzjXofGSGiTBxCYkATOw8866-51-06A57:35:00 [facility] HospitalBrief Op NoteREPORT#:[id number] REPORT STATUS: SignedDATE:12/14/22 TIME:0935 PATIENT: DAVID BELLO HQIRRO N UNIT #: [id number]#: [id number] ROOM/BED:: 79 AGE: 42 SEX: F ATTEND: Brett Rodriguez AUTHOR: Brett Rodriguez MD * ALL edits or amendments must be made on the electronic/computer document * Op/Inv Proc Note - BriefPre-procedure diagnosis:right renal stonePost-procedure diagnosis: same as pre procedure dxProcedures performed:right ureteroscopy with laser lithotripsy and stent removalPrimary Surgeon:JenniferAssistant(s): noneFindings:2cm upj stone,minimal hydronephrosisComplications: noneEstimated blood loss in ml's: noneSpecimens removed/altered: stonesDrain(s): None at 0936 [facility] #: [id number] OF REPORT OPOperative bogojw2191-37-31B16:35:00L.[id number] ilable for patient jjptAZYDEBVTGARHQX8342-29-33I68:36:33 [facility] 2022-12-07 11:37:00 [id number] OtTQ/yZPzlXSuzbbi8sp9FedTkja3 Hx/xUtCbdXnE1nu+eiDNjSV9TZD9069-34-24C27:37:04534 5[address] [place] [address] PATIENT NAME: DAVID BELLO ADMIT DATE: 12/03/22ACCOUNT NO: [id number] ROOM NO: [facility] AGE: 42 REPORT TYPE: 360 - QUERY RESPONSE DOCUMENT SEX: F ADMITTING PHYSICIAN: Grace Castano MD ATTENDING PHYSICIAN: Grace Castano MD Provider Query QUERY TEXT: Clarification Infectious Status POA 360MD Query related questions should be directed to: [facility] coding Query Helpline Based on your clinical judgment, please clarify the condition(s) that represent(s) the clinical indicators listed below and if the condition(s) are present on admission (POA). The following definitions are provided based on industry literature and in collaboration with [facility] Clinical Services Group for your reference only:--Localized Infection - An infection that affects only one organ or body part (e.g., UTI, Pneumonia)--Bacteremia - Nonspecific laboratory finding of bacteria in the blood--Sepsis - A presumed or confirmed systemic response to infectious process with >2 clinical indicators such as: Temperature >38.3C or <36.0C, tachycardia, > 20 respiratory rate, WBC >12,000 or < 4,000 or > 10% bands--Severe Sepsis - Sepsis with additional clinical indicators such as Organ failure with any of the following: systolic BP < 90 or MAP < 65 or SBP decrease more 40 mm Hg from last recorded SBP considered normal for patient, Creatinine > 2.0, urine output < 0.5 ml/kg/hour for 2 hours, Bilirubin > 2 mg/dL, platelet count < 100,000, INR > 1.5, PTT > 60 sec, lactate > 2 mmol/L--Septic Shock - Severe Sepsis with Lactic acid > 4 mmol/L or persistent hypotension The patient's Clinical Indicators include:ED PHYSICIAN RECORD 12/02/2022 (10)Vital Signs:Pulse Ox 99 12/02 1158 ED PHYSICIAN RECORD 12/02/2022 (4) Laboratory Tests:WBC (3.5 - 11.0 K/mm3) 3.8Urine WBC (0 - 3 #WBC/HPF) 20-30 HDischarge Summary 12/05/2022 (4)Discharge diagnosis:ESBL E. coli UTIs/p right kidney stone with right hydronephrosis and ureteral stent placement on 11/21/2022 Rapid Initial Assessment 12/02/2022 (2)Fever greater than 100.4 F or 38.0 C:Patient states having a fever:PIPERACILLIN SODIUM/TAZOBACTAM 3.375 GM VIAL MAROptions provided:-- Sepsis, Please specify POA status (i.e., Y=Yes, N=No, W=Unable to clinically determine) and causative organism if known.-- Severe Sepsis, Please specify POA status (i.e., Y=Yes, N=No, W=Unable to clinically determine) and causative organism if known.-- Severe Sepsis with septic shock, Please specify POA status (i.e., Y=Yes, N=No, W=Unable to clinically determine) and causative organism if known.-- Localized infection, Please specify the infection and POA status (i.e., Y=Yes, N=No, W=Unable to clinically determine).-- Other - I will add my own diagnosis-- Dismiss - Not applicable / Not valid-- Dismiss - Clinically unable to determine / Unknown-- Assign to another provider QUERY RESPONSE: The patient has localized infection. Query created by: ROSA ISELA CATES on 12/07/2022 6:01 AM at 1137 PATIENT NAME: MIRELLA BELLOGUS HQIRRO N noteL.[id number] for patient txaySXWPVWOVIPXAXS1131-25-88L25:38:28 [facility] 2022-12-05 11:19:00 [id number] uLdXITaDDZTbWOpukhfCvc0dGs+BJ aLcdOgjCPVikc6I9trSqcUibJcg5627-03-96O93:19:00 [facility])Discharge SummaryREPORT#:[id number] REPORT STATUS: SignedDATE:12/05/22 TIME:1119 PATIENT: DAVID BELLO HQMOJGANO David UNIT #: [id number]#: [id number] [address] [birth year] AGE: 42 SEX: F ATTEND: Grace Castano AUTHOR: Grace Castano MD * ALL edits or amendments must be made on the electronic/computer document * General InformationDischarge date: 12/05/22Discharge diagnosis:ESBL E. coli UTIs/p right kidney stone with right hydronephrosis and ureteral stent placement on11/21/2022KD 2HypertensionDiabetes mellitus type 2 plan Based on sensitivities from last admission we will use IV Zosyn 3.375 to 8 hoursappreciate infectious disease and their final recommendations. Patient had an allergic reaction to ertapenem which we will avoid, follow-up labs, resumed homemedications. Advance care plan-patient is a full code Per ID since urine cx remained neg, we can give fosfomycin 3 gm PO x1 dose priorto discharge. ok to dc home DVT prophylaxis-LovenoxHospital course:ESBL E. coli UTIs/p right kidney stone with right hydronephrosis and ureteral stent placement on11/21/2022KD 2HypertensionDiabetes mellitus type 2 plan Based on sensitivities from last admission we will use IV Zosyn 3.375 to 8 hoursappreciate infectious disease and their final recommendations. Patient had an allergic reaction to ertapenem which we will avoid, follow-up labs, resumed homemedications. Advance care plan-patient is a full code Per ID since urine cx remained neg, we can give fosfomycin 3 gm PO x1 dose priorto discharge. ok to dc home DVT prophylaxis-LovenoxConsultants: infectious diseasePt. condition on discharge: improved, stable Med Rec Med RecDischarge meds:Stop taking the following medications:MEROPENEM (MERREM) 500 MG VIAL 500 MILLIGRAM INTRAVENOUS EVERY 8 HOURS. Days = 10 Continue taking these medications:SEMAGLUTIDE (OZEMPIC PEN (4 MG/3mL)) 1 MG/0.75 ML (4 MG/3 ML) PEN.INJCTR 1 MILLIGRAM SUBCUTANEOUS EVERY 7 DAYS. LOSARTAN (COZAAR) 25 MG TAB 25 MILLIGRAM ORAL DAILY AT 1800. Qty = 30 LEVOTHYROXINE (SYNTHROID) 125 MCG TAB 125 MICROGRAM ORAL DAILY AT 0700. Qty = 30 HYDROcodone/APAP (HYDROcodone/APAP 7.5/325) 7.5 MG-325 MG TAB 1 TABLET ORAL EVERY FOUR HOURS. Qty = 12 ObjectiveVS/I OLast Documented: Result Date Time O2 Delivery Room air 12/05 830 Temp 96.8 12/05 0831 B/P 143/74 12/04 2323 B/P Mean 97 12/04 2323 Pulse 61 12/04 2323 Resp 13 12/04 2323 Pulse Ox 93 12/04 0901 24 hour I O ending at 0700: 12/05 0700 12/04 1900 Intake Total 700.00 Output Total Balance 700.00 Intake, IV 400.00 Intake, Oral 300 Number Voids 7 PATIENT WEIGHT: Weight (lb): Weight (oz): Weight (kg): 98.182 General appearance: awakeENT: normal noseCardiovascular: regular rate rhythmRespiratory: clear to auscultationExtremities: moves allNeuro/EARLY HEAD START TEACHER: alertSkin: dryLymphatic: no lymphadenopathy Discharge Instructions PCPPCP:PCP: Javi Cuadra MD )( Discharge to: Home/Self Care Discharge InstructionsAdditional Discharge Routines: PCP Follow-Up, Shell Sieve Operator Follow-Up)( Diet: Regular)( Activity: As ToleratedPrescriptions: e-prescribeDischarge management: greater than 30 mins Follow-up AppointmentsPCP follow up: PCP: Javi Cuadra MD PCP follow up timeframe: In 1-2 weeksConsulting provider 1: Provider 1: Paul Garrett MD Specialty: Infectious Disease at 1123 RPT #: [id number] OF REPORT DSDischarge cfbpfxr1966-32-84D40:19:00L.[id number] ailable for patient idlaZXHWZHQZAFEXIT9491-10-85I88:23:57 [facility] 2022-12-05 10:29:00 [id number] QQfGxHBMTZ1sgnN8UMtUN0eHs37wA hEi4xpsV5RTbKWIrs3QupX7PttC9035-24-86X32:29:00 [facility] ([facility])Infectious Dis. Progress NoteREPORT#:[id number] REPORT STATUS: SignedDATE:12/05/22 TIME:1029 PATIENT: DAVID BELLO HQIRRO N UNIT #: [id number]#: [id number] [address] [birth year] AGE: 42 SEX: F ATTEND: Grace Castano [facility] AUTHOR: Paul Garrett MD * ALL edits or amendments must be made on the electronic/computer document * SubjectiveChief complaint:UTIHPI:Pt feels better. Pt is on Zosyn. Urine cx neg. Review of SystemsConstitutional:Denies: fever. Objective GeneralVS/I O:Vital Signs Date Temp Pulse Resp B/P B/P Mean Pulse Ox FiO2 12/04-12/05 36.0-36.6 61-64 13-14 143-147/74-75 97-99 Last Documented: Result Date Time O2 Delivery Room air 12/05 0831 Temp 36.0 12/05 0831 B/P 143/74 12/04 2323 B/P Mean 97 12/04 2323 Pulse 61 12/04 2323 Resp 13 12/04 2323 Pulse Ox 93 12/04 0901 Vital Signs: Date Time Temp Pulse Resp B/P B/P Pulse O2 O2 Flow FiO2 Mean Ox Delivery Rate 12/05 0831 36.0 Room air 12/04 2340 36.6 12/04 2323 61 13 143/74 97 12/04 2200 64 14 147/75 99 Room air 12/04 1131 36.3 24 hour I O ending at 0700: 12/05 0700 12/04 1900 Intake Total 700.00 Output Total Balance 700.00 Intake, IV 400.00 Intake, Oral 300 Number Voids 7 PATIENT WEIGHT: Weight (lb): Weight (oz): Weight (kg): 98.182 Physical ExamGeneral appearance: alert, awakeHead/Eyes: atraumatic, clear cornea, EOMI, normal conjunctiva/sclera, normal eyelids/periorb, normocephalicNeck: full range of motion, non-tender, supple/no meningismusCardiovascular: regular rate rhythmRespiratory: symmetric expansion, no distressAbdomen: non-tender, soft, no CVA tenderness, no distention, no guarding, no mass/organomegaly, no reboundExtremities: no clubbing, no cyanosisMusculoskeletal: no joint swellingNeuro/EARLY HEAD START TEACHER: alert, oriented X 3, CNII-XII intact, normal speechSkin: normal color, normal turgor, no rash Diagnosis, Assessment PlanFree Text A P:Laboratory Tests 12/04/22 0355:[Embedded Image Not Available] 12/04/22 0354:[Embedded Image Not Available] Imaging:CTAP reviewed 11/01 Assessment:1. Recurrent UTI.2. Recent ESBL E. coli bacteremia with pyelonephritis. Original end date was 12/04/22 but treatment was stopped earlier (around 11/29/22) due to allergic reactionto ertapenem, so she got around 7 days of total therapy.3. CKD stage 2.4. Right kidney stone with right hydronephrosis s/p ureteral stent placement 11/21/22. Plan:1. Zosyn (day 4).2. Can discharge pt on fosfomycin 3 gm PO x1 dose.3. F/u with PCP and urology. at 1130 RPT #: [id number] OF REPORT PRProgress vmwe3868-09-61H27:29:00L.[id number] able for patient bvwhKMNXXKLSBDWGJV1277-96-28U62:30:27 [facility] 2022-12-04 11:13:00 [id number] ZIH5xfzR2rgaRQYzt9NRo3pr8sJCm 7NN8WEBxfgDAocV0CPvscmissTa2301-73-60K89:13:00 [facility])Hospitalist Progress NoteREPORT#:[id number] REPORT STATUS: SignedDATE:12/04/22 TIME:1113 PATIENT: DAVID BELLO HQMOJGANO David UNIT #: [id number]#: [id number] [address] [birth year] AGE: 42 SEX: F ATTEND: Grace Castano [facility] AUTHOR: Grace Castano MD * ALL edits or amendments must be made on the electronic/computer document * SubjectiveChief complaint:Feels better, no fever, no chills Objective GeneralDietitian nutrition assessmentThe data set between the solid lines has been imported from the dietitian's assessment. BMI Calculated: 36.0Nutrition related diagnosis: Nutrition diagnosis details: Nutrition problem: Nutrition etiology: Nutrition signs and symptoms: Nutrition prescription: Dietitian name: Assessment completed: Physical ExamENT: normal noseCardiovascular: normal heart soundsRespiratory: aerating wellGenitourinary: urineExtremities: moves allNeuro/EARLY HEAD START TEACHER: alertLymphatics: no lymphadenopathy ResultsFindings/Data:Laboratory Tests 12/04 12/04 12/03 12/03 12/03 0722 0354 2059 1748 1154 Chemistry Sodium (134 - 147 mmol/L) 140 Potassium (3.4 - 5.0 mmol/L) 3.7 Chloride (100 - 108 mmol/L) 106 Carbon Dioxide (21 - 32 mmol/L) 29 Anion Gap (4.0 - 15.0 GAP calc) 5.0 BUN (7 - 18 MG/DL) 13 Creatinine (0.6 - 1.0 MG/DL) 1.3 H Glomerular Filtr Rate (>60 estGFR) 52 L Glucose (70 - 110 MG/DL) 107 POC Glucose (70 - 110 mg/dL) 107 107 187 H 140 H Calcium (8.5 - 10.1 MG/DL) 7.8 L Laboratory Tests 12/04 0355 Hematology WBC (3.5 - 11.0 K/mm3) 5.4 RBC (4.70 - 6.10 M/mm3) 4.05 L Hgb (10.4 - 14.9 G/DL) 10.2 L Hct (31.5 - 44.1 %) 33.2 MCV (84.5 - 98.6 Fl) 82.0 L MCH (27.0 - 34.2 pg) 25.2 L MCHC (31.5 - 34.0 G/DL) 30.7 L RDW (11.5 - 14.5 SD) 15.9 H Plt Count (150 - 450 K/mm3) 307 MPV (7.0 - 10.5 fL) 10.70 H Neut % (Auto) (40 - 76 %) 44.4 Lymph % (Auto) (20.5 - 51.1 %) 46.9 Piatt % (Auto) (1.7 - 9.3 %) 5.3 Eos % (Auto) (0.0 - 6.0 %) 1.7 Baso % (Auto) (0.0 - 2.0 %) 1.5 Neut # (Auto) (1.8 - 7.6 K/mm3) 2.4 Lymph # (Auto) (0.6 - 3.2 K/mm3) 2.6 Piatt # (Auto) (0.3 - 1.1 K/mm3) 0.3 Eos # (Auto) (0.0 - 0.4 K/mm3) 0.1 Baso # (Auto) (0.0 - 0.1 K/mm3) 0.1 Abs Immat Gran (auto) (0.00 - 0.03 x10 3/uL) 0.01 Add Manual Diff (CRITERIA DIFF/SCN) NO Immature Gran % (0.0 - 5.0 %) 0.2 Nucleated RBC % (0.0 - 1.0 /100WBC%) 0.0 Diagnosis, Assessment Plan Free Text DxA P NotesFree text DxA P notes:ESBL E. coli UTIs/p right kidney stone with right hydronephrosis and ureteral stent placement on3CKD 2HypertensionDiabetes mellitus type 2 plan Based on sensitivities from last admission we will use IV Zosyn 3.375 to 8 hoursappreciate infectious disease and their final recommendations. Patient had an allergic reaction to ertapenem which we will avoid, follow-up labs, resumed homemedications. Advance care plan-patient is a full code Per ID If urine cx remains neg, can give fosfomycin 3 gm PO x1 dose for discharge. Likely in am DVT prophylaxis-Lovenox at 1113 RPT #: [id number] OF REPORT PRProgress kety8403-89-91O30:13:00L.[id number] able for patient qowxEZFKDWOJELJIPD8845-25-14I55:14:15 [facility] 2022-12-04 09:25:00 [id number]/Tr3w DAyW16JuDR7ysgr7OCR0biEp/y6hs 1tKpi/F29AfsREkqOpjuuSoohO51436-36-81K17:25:00 [facility] ([facility])Infectious Dis. Progress NoteREPORT#:[id number] REPORT STATUS: SignedDATE:12/04/22 TIME:924 PATIENT: ACEDAVID HQIRRO N UNIT #: [id number]#: [id number] [address] [birth year] AGE: 42 SEX: F ATTEND: Grace Castano MDADM AUTHOR: Paul Garrett MD * ALL edits or amendments must be made on the electronic/computer document * SubjectiveChief complaint:UTIHPI:Dysuria resolving. Pt is on Zosyn. Urine cx pending. Review of SystemsConstitutional:Denies: fever. Objective GeneralVS/I O:Vital Signs Date Temp Pulse Resp B/P B/P Mean Pulse Ox FiO2 12/03-12/04 36.3-36.7 60-78 12-24 105-158/56-89 74-106 93-99 Last Documented: Result Date Time Pulse Ox 94 09/ 0700 B/P 105/72 / 0700 B/P Mean 83 09/ 0700 O2 Delivery Room air 12/04 0700 Pulse 67 / 0700 Resp 17 12/04 0700 Temp 36.3 12/03 2357 Vital Signs: Date Time Temp Pulse Resp B/P B/P Pulse O2 O2 Flow FiO2 Mean Ox Delivery Rate 12/04 0700 67 17 105/72 83 94 Room air 09 0600 64 15 127/80 95 94 Room air / 0500 61 15 144/86 105 94 Room air / 0400 72 12 123/60 81 97 Room air / 0300 64 15 144/84 104 94 Room air 12/04 0200 60 16 124/79 94 95 Room air 12/04 0100 62 20 137/79 98 94 Room air / 0000 62 17 144/69 94 97 Room air 12/03 2357 36.3 12/03 2300 64 24 136/73 94 97 Room air 12/03 2024 36.7 09/ 2000 67 17 138/83 101 97 Room air / 1800 75 18 158/80 106 98 / 1700 66 18 142/65 90 98 / 1427 78 16 110/56 74 98 / 1300 72 20 139/89 105 94 / 1200 72 20 99 / 1156 36.7 09 1100 64 16 144/85 104 93 09/11 1000 78 20 150/81 104 96 24 hour I O ending at 0700: 12/04 0700 12/03 1900 Intake Total 700.00 600 Output Total Balance 700.00 600 Intake, IV 200.00 Intake, Oral 500 600 Number Voids 2 3 PATIENT WEIGHT: Weight (lb): Weight (oz): Weight (kg): 98.182 Physical ExamGeneral appearance: alert, awakeHead/Eyes: atraumatic, clear cornea, EOMI, normal conjunctiva/sclera, normal eyelids/periorb, normocephalicNeck: full range of motion, non-tender, supple/no meningismusCardiovascular: regular rate rhythmRespiratory: symmetric expansion, no distressAbdomen: non-tender, soft, no CVA tenderness, no distention, no guarding, no mass/organomegaly, no reboundExtremities: no clubbing, no cyanosisNeuro/EARLY HEAD START TEACHER: alert, oriented X 3, CNII-XII intact, normal speechSkin: normal color, normal turgor, no rash Diagnosis, Assessment PlanFree Text A P:Laboratory Tests 12/04/22 0355:[Embedded Image Not Available] 12/04/22 0354:[Embedded Image Not Available] Imaging:CTAP reviewed 11/01 Assessment:1. Recurrent UTI.2. Recent ESBL E. coli bacteremia with pyelonephritis. Original end date was 12/04/22 but treatment was stopped earlier (around 11/29/22) due to allergic reactionto ertapenem, so she got around 7 days of total therapy.3. CKD stage 2.4. Right kidney stone with right hydronephrosis s/p ureteral stent placement 11/21/22. Plan:1. Agree with Zosyn (day 3) as pt has developed an allergy to ertapenem and lastbacterium was resistant to Bactrim and ciprofloxacin.2. If urine cx remains neg tomorrow, can discharge pt on fosfomycin 3 gm PO x1 dose.3. Monitor CBC.4. Monitor kidney function. at 1201 RPT #: [id number] OF REPORT PRProgress orgq0457-48-46V61:25:00L.[id number] able for patient qnezOOTAXMZYCEZOHQ0867-18-76J77:01:37 [facility] 2022-12-03 15:16:00 [id number] F5o9c/MbJSE1FdFnTy9N3Aw7rt2Kn 9ZAFvKB53fxwCtqEn2xdJtLheYu5036-82-90B06:16:00 [facility] Progress NoteREPORT#:[id number] REPORT STATUS: SignedDATE:12/03/22 TIME:1516 PATIENT: DAVID BELLO UNIT #: [id number]#: [id number] [address] [birth year] AGE: 42 SEX: F ATTEND: Grace Castano AUTHOR: Grace Castano MD * ALL edits or amendments must be made on the electronic/computer document * SubjectiveChief complaint:Feels better, no fever, no chills Objective GeneralVS/I O:Vital Signs: Date Time Temp Pulse Resp B/P B/P Pulse O2 O2 Flow FiO2 Mean Ox Delivery Rate 12/03 1156 98.1 12/03 0745 97.7 12/03 0354 97.9 12/02 2353 98.2 12/02 2021 97.4 80 18 146/90 108 100 12/02 2000 67 17 146/93 113 96 12/02 1932 98.2 12/02 1922 72 23 145/84 109 96 12/02 1800 75 28 158/80 114 97 12/02 1712 66 21 142/65 93 24 hour I O ending at 0700: 12/03 0700 12/02 1900 Intake Total 50 Output Total Balance 50 Intake, Oral 50 Patient 216 lb Weight Weight Stated/Reported Measurement Method PATIENT WEIGHT: Weight (lb): Weight (oz): Weight (kg): 98.182 Dietitian nutrition assessmentThe data set between the solid lines has been imported from the dietitian's assessment. BMI Calculated: 36.0Nutrition related diagnosis: Nutrition diagnosis details: Nutrition problem: Nutrition etiology: Nutrition signs and symptoms: Nutrition prescription: Dietitian name: Assessment completed: Physical ExamGeneral appearance: awakeENT: normal noseCardiovascular: normal heart soundsRespiratory: aerating wellGenitourinary: urineExtremities: moves allNeuro/EARLY HEAD START TEACHER: alertLymphatics: no lymphadenopathy ResultsFindings/Data:Laboratory Tests 12/03 12/03 12/03 12/02 1154 0794 0190 6235 Chemistry Sodium (134 - 147 mmol/L) 137 Potassium (3.4 - 5.0 mmol/L) 4.4 Chloride (100 - 108 mmol/L) 105 Carbon Dioxide (21 - 32 mmol/L) 27 Anion Gap (4.0 - 15.0 GAP calc) 5.0 BUN (7 - 18 MG/DL) 10 Creatinine (0.6 - 1.0 MG/DL) 1.2 H Glomerular Filtr Rate (>60 estGFR) 58 L Glucose (70 - 110 MG/DL) 117 H POC Glucose (70 - 110 mg/dL) 140 H 111 H 162 H Calcium (8.5 - 10.1 MG/DL) 8.3 L Total Bilirubin (0.2 - 1.2 MG/DL) 0.30 AST (15 - 37 Unit/L) 20 ALT (12 - 78 Unit/L) 24 Total Alk Phosphatase (45 - 117 Unit/L) 87 Total Protein (6.4 - 8.2 G/DL) 7.8 Albumin (3.4 - 5.0 G/DL) 2.8 L Globulin (GM/dL) 5.0 Albumin/Globulin Ratio (1.2 - 2.2 RATIO) 0.6 L Laboratory Tests 12/03 0552 Hematology WBC (3.5 - 11.0 K/mm3) 6.0 RBC (4.70 - 6.10 M/mm3) 4.15 L Hgb (10.4 - 14.9 G/DL) 10.4 Hct (31.5 - 44.1 %) 32.7 MCV (84.5 - 98.6 Fl) 78.8 L MCH (27.0 - 34.2 pg) 25.1 L MCHC (31.5 - 34.0 G/DL) 31.8 RDW (11.5 - 14.5 SD) 15.7 H Plt Count (150 - 450 K/mm3) 297 MPV (7.0 - 10.5 fL) 10.60 H Neut % (Auto) (40 - 76 %) 69.8 Lymph % (Auto) (20.5 - 51.1 %) 24.0 Piatt % (Auto) (1.7 - 9.3 %) 5.3 Eos % (Auto) (0.0 - 6.0 %) 0.2 Baso % (Auto) (0.0 - 2.0 %) 0.5 Neut # (Auto) (1.8 - 7.6 K/mm3) 4.2 Lymph # (Auto) (0.6 - 3.2 K/mm3) 1.4 Piatt # (Auto) (0.3 - 1.1 K/mm3) 0.3 Eos # (Auto) (0.0 - 0.4 K/mm3) 0.0 Baso # (Auto) (0.0 - 0.1 K/mm3) 0.0 Abs Immat Gran (auto) (0.00 - 0.03 x10 3/uL) 0.01 Add Manual Diff (CRITERIA DIFF/SCN) NO Immature Gran % (0.0 - 5.0 %) 0.2 Nucleated RBC % (0.0 - 1.0 /100WBC%) 0.0 Microbiology Date/Time Procedure - Status Source Growth 12/02 1929 MRSA Screen - COMP NASAL Diagnosis, Assessment Plan Free Text DxA P NotesFree text DxA P notes:ESBL E. coli UTIs/p right kidney stone with right hydronephrosis and ureteral stent placement on3CKD 2HypertensionDiabetes mellitus type 2 plan Based on sensitivities from last admission we will use IV Zosyn 3.375 to 8 hoursappreciate infectious disease and their final recommendations. Patient had an allergic reaction to ertapenem which we will avoid, follow-up labs, resumed homemedications. Advance care plan-patient is a full code DVT prophylaxis-Lovenox at 1518 [facility] #: [id number] OF REPORT PRProgress tssh0482-05-88Y50:16:00L.[id number] able for patient enzjKNUWMWVWYNATYB1657-60-91Z15:18:57 [facility] 2022-12-03 09:41:00 [id number] CXhiyg+r3HYLgxFkVkq+9ANbr3+Sb A1rGLQ9wZOygKuuIxqCLLXHwDK/1184-23-05T69:41:00 [facility] ([facility])Infect Disease Consult NoteREPORT#:[id number] REPORT STATUS: SignedDATE:12/03/22 TIME:09 PATIENT: DAVID BELLO HQIRRO N UNIT #: [id number]#: [id number] [address] [birth year] AGE: 42 SEX: F ATTEND: Grace Castano [facility] AUTHOR: Paul Garrett MD * ALL edits or amendments must be made on the electronic/computer document * History of Present IllnessChief complaint:UTIHPI:41-year-old female with h/o CKD stage II, hypertension, diabetes, pericardial effusion s/p pericardiocentesis, kidney stone s/p ureteral stent, who was discharged in November with ertapenem. Pt developed hives last week and ertapenem was stopped. No other therapy was continued as pt was asymptomatic with no fever. Last WBC was normal as well. Pt presented this time with worsening intermittent dysuria for 1 day. No fever. History - Adult longitudinalPast medical history:Reports: Diabetes mellitus, Hypertension, Kidney disease/stones. Past surgical history:Reports: Thyroidectomy. Additional surgical history:reviewed. Kidney stone resetion.Additional family history:Mother with kidney stonesAlcohol use: Denies EtOH useDrug use: Denies recreational drugsSmoking status for patients 13 years old or older: Unknown,if ever smokedAllergies:Coded Allergies:ertapenem (Mild, Itching 12/02/22)sumatriptan (From IMITREX) (ITCHY 08/30/21) Review of SystemsConstitutional:Denies: chills. Skin:Reports: other (She had hives). Allergy/Immun:Reports hivesEyes:Denies dischargeENT:Denies: sore throat. Respiratory:Denies: productive cough (sputum), SOB. Cardiovascular:Denies: chest pain. GI:Denies: abdominal pain. :Reports: dysuria. Denies: flank pain. Musculoskeletal:Denies: joint swelling. Neuro:Denies: headache. Objective GeneralVS/I O:Vital Signs Date Temp Pulse Resp B/P B/P Mean Pulse Ox FiO2 12/02-12/03 36.3-36.8 66-80 17-28 142-158/65-93 93-114 96-100 Last Documented: Result Date Time Temp 36.7 12/03 1156 Pulse Ox 100 12/02 2021 B/P 146/90 12/02 2021 B/P Mean 108 12/02 2022 Pulse 80 12/02 2021 Resp 18 12/02 2021 O2 Delivery Room air 12/02 1158 Vital Signs: Date Time Temp Pulse Resp B/P B/P Pulse O2 O2 Flow FiO2 Mean Ox Delivery Rate 12/03 1156 36.7 12/03 0745 36.5 / 0354 36.6 12/02 2353 36.8 12/02 2021 36.3 80 18 146/90 108 100 12/02 2000 67 17 146/93 113 96 12/02 1932 36.8 12/02 1922 72 23 145/84 109 96 12/02 1800 75 28 158/80 114 97 12/02 1712 66 21 142/65 93 24 hour I O ending at 0700: 12/03 0700 12/02 1900 Intake Total 50 Output Total Balance 50 Intake, Oral 50 Patient 98.182 kg Weight Weight Stated/Reported Measurement Method PATIENT WEIGHT: Weight (lb): Weight (oz): Weight (kg): 98.182 Physical ExamGeneral appearance: alert, awake, oriented, no acute distress, mental status normal, no respiratory distressHead/Eyes: atraumatic, clear cornea, EOMI, normal conjunctiva/sclera, normal eyelids/periorb, normocephalicENT: moist mucosal membranes, normal noseNeck: full range of motion, non-tender, supple/no meningismusCardiovascular: regular rate rhythmRespiratory: symmetric expansion, no distressAbdomen: non-tender, normal bowel sounds, soft, no CVA tenderness, no distention, no guarding, no mass/organomegaly, no reboundGenitourinary: no flank painExtremities: no clubbing, no cyanosisMusculoskeletal: no joint swellingNeuro/EARLY HEAD START TEACHER: alert, oriented X 3, CNII-XII intact, normal speechSkin: normal color, normal turgor, no rashPsychiatry: normal affect, normal judgment/insight, normal mood Diagnosis, Assessment Plan Free Text DxA P NotesFree text DxA P notes:Laboratory Tests 12/03/22 0524:[Embedded Image Not Available] Imaging:CTAP reviewed 11/01 Assessment:1. Recurrent UTI.2. Recent ESBL E. coli bacteremia with pyelonephritis. Original end date was 12/04/22 but treatment was stopped earlier (around 11/29/22) due to allergic reactionto ertapenem, so she got around 7 days of total therapy.3. CKD stage 2.4. Right kidney stone with right hydronephrosis s/p ureteral stent placement 11/21/22. Plan:1. Agree with Zosyn for now as pt has developed an allergy to ertapenem and lastbacterium was resistant to Bactrim and ciprofloxacin.2. Will deescalate based on new cultures. Hopefully this time the bacterium is not resistant and we can discharge on a PO regimen.3. Monitor CBC.4. Monitor kidney function.5. Case discussed with hospitalist. Thank you for this consult. at 1505 RPT #: [id number] OF REPORT ZUQggxjmaccpps3350-42-04F46:41:00L.LDPH87149940-1 047AVAvailable for patient psmtNFSSYNPSXKQJOC4312-47-99Y82:05:37 [facility] 2022-12-02 13:41:00 [id number] V3nHU+jPNMcsj21jNTRFhL4KXUe13 +BVPqJxh2i9DyOPOjaOqac+hqf56992-83-25J88:41:00 [facility] ([facility])History Physical - AdultREPORT#:[id number] REPORT STATUS: SignedDATE:12/02/22 TIME:1341 PATIENT: DAVID BELLO UNIT #: [id number]#: [id number] [address] [birth year] AGE: 42 SEX: F ATTEND: Grace Castano [facility] AUTHOR: Grace Castano MD * ALL edits or amendments must be made on the electronic/computer document * See AddendumHistory of Present Illness HPIChief complaint:burning urineHPI:41-year-old female with past medical history of chronic kidney disease stage II,hypertension, diabetes, pericardial effusion s/p pericardiocentesis, kidney stone s/p ureteral stent, discharged in November PICC line with IV Ertenem and Merrem presenting with chief complaint of generalized large x5 days on burning urination x1 day. She related generalized hives started after initiation of antibiotic. She relates she stopped antibiotic because she is not improving. She admits to hives on bilateral upper and lower extremity, itching. She deniesfacial swelling, difficulty breathing, lip swelling, tongue swelling, wheezing, abdominal pain, nausea or vomiting. Patient complaint of burning with urination that started yesterday. She denies hematuria, she admits to increased urinary frequency and urgency, she denies flank pain, fever, chills. Patient denies any other symptoms. HistoryPast medical history:Reports: Diabetes mellitus, Hypertension, Kidney disease/stones. Past surgical history:Reports: Thyroidectomy. Additional surgical history:reviewed. Kidney stone resetion.Additional family history:Mother with kidney stonesAlcohol use: Denies EtOH useDrug use: Denies recreational drugsSmoking status for patients 13 years old or older: Unknown,if ever smoked Medication/Allergy-Vaccine HxAllergies:Coded Allergies:sumatriptan (From IMITREX) (ITCHY 08/30/21) Review of SystemsAll systems rev neg: except as marked (burning urine) Physical ExamVS/I OVital Signs: Date Time Temp Pulse Resp B/P B/P Pulse O2 O2 Flow FiO2 Mean Ox Delivery Rate 12/02 1158 97.5 78 19 136/69 91 99 Room air PATIENT WEIGHT: Weight (lb): Weight (oz): Weight (kg): 98.182 General appearance: awakeENT: normal noseNeck: suppleCardiovascular: regular rate rhythmRespiratory: clear to auscultationAbdomen/GI: softExtremities: moves allMusculoskeletal: full range of motionNeuro/EARLY HEAD START TEACHER: alertSkin: dryLymphatic: no lymphadenopathy ResultsFindings/Data:Laboratory Tests: 12/02 12/02 1222 1215 Chemistry Sodium (134 - 147 mmol/L) 138 Potassium (3.4 - 5.0 mmol/L) 4.4 Chloride (100 - 108 mmol/L) 104 Carbon Dioxide (21 - 32 mmol/L) 30 Anion Gap (4.0 - 15.0 GAP calc) 4.0 BUN (7 - 18 MG/DL) 11 Creatinine (0.6 - 1.0 MG/DL) 1.2 H Glomerular Filtr Rate (>60 estGFR) 58 L Glucose (70 - 110 MG/DL) 107 Calcium (8.5 - 10.1 MG/DL) 8.5 Total Bilirubin (0.2 - 1.2 MG/DL) 0.30 AST (15 - 37 Unit/L) 22 ALT (12 - 78 Unit/L) 29 Total Alk Phosphatase (45 - 117 Unit/L) 92 Total Protein (6.4 - 8.2 G/DL) 8.3 H Albumin (3.4 - 5.0 G/DL) 3.2 L Globulin (GM/dL) 5.1 Albumin/Globulin Ratio (1.2 - 2.2 RATIO) 0.6 L Hematology WBC (3.5 - 11.0 K/mm3) 3.8 RBC (4.70 - 6.10 M/mm3) 4.54 L Hgb (10.4 - 14.9 G/DL) 11.3 Hct (31.5 - 44.1 %) 36.2 MCV (84.5 - 98.6 Fl) 79.7 L MCH (27.0 - 34.2 pg) 24.9 L MCHC (31.5 - 34.0 G/DL) 31.2 L RDW (11.5 - 14.5 SD) 15.8 H Plt Count (150 - 450 K/mm3) 384 MPV (7.0 - 10.5 fL) 10.90 H Urines Urine Color (YEL/STRAW discript) STRAW Urine Appearance (CLEAR discript) CLOUDY H Urine pH (5.0 - 7.0 pH UNITS) 6.5 Ur Specific [place] (1.005 - 1.030 SG) 1.015 Urine Protein (NEG mg/dL) NEGATIVE Urine Glucose (UA) (NEG mg/dL) NEGATIVE Urine Ketones (NEG mg/dL) NEGATIVE Urine Blood (NEG mg/DL) TRACE H Urine Nitrite (NEG SCREEN) NEGATIVE Urine Bilirubin (NEG mg/dL) NEGATIVE Urine Urobilinogen (<2.0 mg/dL) 0.2 Ur Leukocyte Esterase (NEGATIVE Leuk/mcL) 3+ H Urine RBC (0 - 3 #RBC/HPF) 5-10 H Urine WBC (0 - 3 #WBC/HPF) 20-30 H Urine Bacteria (NONE - TRACE /HPF) TRACE Urine Culture Screen (Culture CHK Criteria) YES,WBC>10 EPI<25 Urine HCG, Qual (NEGATIVE) NEGATIVE 12/02 1211 Miscellaneous Maternal Serum HCG (0 - 6 mi-IU/ML) < 1 Radiology data:ESBL E. coli UTIs/p right kidney stone with right hydronephrosis and ureteral stent placement on3CKD 2HypertensionDiabetes mellitus type 2 plan Based on sensitivities from last admission we will use IV Zosyn 3.375 to 8 hours. Patient had an allergic reaction to ertapenem which we will avoid. ID consult, follow-up labs, resume home medications. Advance care plan-patient is afull code DVT prophylaxis-Lovenox at 1345 Addendum 1: 12/06/22 1300 by Grace Castano MD 12/02/22. @ 1341hrs patient does not meet SIRS criteria, severe sepsis or septic shock at 1301 [facility] #: [id number] OF REPORT HPHistory and physical hbyvwmfwsfx0221-00-17A22:41:00L.[id number] AVAvailable for patient pnnnGIEOUUZUZBFAOF6095-44-17X10:45:49 [facility] 2022-12-02 12:14:00 [id number] ZNtM/PEy4KE7ne+ion7+I34ZIWhXA y5qFOvrW+jG204d7tcxw4HmrIWa8862-32-41N62:14:00 [facility])EMERGENCY PROVIDER REPORTREPORT#:[id number] REPORT STATUS: SignedDATE:12/02/22 TIME:1214 PATIENT: DAVID BELLO HQIRRO N UNIT #: [id number]#: [id number] [address] [birth year] AGE: 42 SEX: F PCP PHYS: Javi Cuadra MDSERVICE AUTHOR: Alvarez Youngblood * ALL edits or amendments must be made on the electronic/computer document * Alvarez Youngblood 12/02/22 1214:HPI-Allergic Reaction Free Text HPI NotesFree Text HPI Aperk99-zleo-lvm female with past medical history of chronic kidney disease stage II,hypertension, diabetes, pericardial effusion s/p pericardiocentesis, kidney stone s/p ureteral stent, discharged in November PICC line with IV Ertenem and Merrem presenting with chief complaint of generalized itching x5 days on burningurination x1 day. She related generalized hives started after initiation of antibiotic. She states she stopped antibiotic because of generalized itching. She admits to hives on bilateral upper and lower extremity, itching. She deniesfacial swelling, difficulty breathing, lip swelling, tongue swelling, wheezing, abdominal pain, nausea or vomiting. Patient complaint of burning with urination that started yesterday. She denies hematuria, she admits to increased urinary frequency and urgency, she denies flank pain, fever, chills. Patient denies any other symptoms. GeneralConfirmed Patient YesInitial Greet Date/Time 12/02/22 1152 PresentationChief Complaint Allergic reactionHx Obtained From PatientOnset Occurred Days agoLocation Upper extremity R, Upper extremity L, Lower extremity R, Lower extremity LAssociated withReports: Itching generalized, Welts/hives. Denies: Nausea, Palpitations, Rash/redness all over, Swelling, eyes, Swelling, face, Swelling, feet, Swelling, hands, Swelling, lips, Swelling, neck, Swelling, throat, Swelling, tongue, Vomiting, Wheezing. Associated Other Pt denies other symptomsExacerbated by NothingRelieved by Nothing Review of Systems ROS StatementsAll systems rev neg except as marked. Focused Review of SystemsConstitutionalDenies: Chills, Fever. EyesDenies: Swelling bilat. Ears/Nose/ThroatDenies: Throat swelling, Tongue swelling, Voice change. RespiratoryDenies: Shortness of breath, Wheezing. GIDenies: Nausea, Vomiting. SkinReports: Rash. Allergy/ImmunReports: Hives. Past Medical History - AdultStated Complaint HIVES KIDNEYSTONE PAINCalculated Suicide Risk (nurs) No riskPast Medical History:Reports: Diabetes mellitus, Hypertension, Kidney disease/stones. Past Surgical History:Reports: Thyroidectomy. Additional Surgical Historyreviewed. Kidney stone resetion.Additional Family HistoryMother with kidney stonesAlcohol Use Denies EtOH useDrug Use Denies recreational drugsSmoking status for patients 13 years old or older: Unknown,if ever smoked Physical Exam Vital SignsVital SignsFirst Documented: Result Date Time Pulse Ox 99 12/02 1158 B/P 136/69 12/02 1158 B/P Mean 91 12/02 1158 O2 Delivery Room air 12/02 1158 Temp 36.4 12/02 1158 Pulse 78 12/02 1158 Resp 19 12/02 1158 Last Documented: Result Date Time Pulse Ox 99 12/02 1158 B/P 136/69 12/02 1158 B/P Mean 91 12/02 1158 O2 Delivery Room air 12/02 1158 Temp 36.4 12/02 1158 Pulse 78 12/02 1158 Resp 19 12/02 1158 Review of Vital Signs Reviewed Focused PEGeneral/Const General/Const Awake, Alert, No acute distressMS Head Head NormocephalicEars/Nose/Throat Ears/Nose/Throat Airway patent, Pharynx NL, No facial swellingResp/Chest Respiratory/Chest Breath sounds NL, Breath sounds = bilat, No respiratory distressCardiovascular Cardiovascular Heart rate NL, Regular rhythm, Heart sounds NLSkin Text/Dict NotesRaised erythema papule noted on bilateral upper and lower extremityNeurologic Neurologic Oriented X3 Interpretation Diagnostics Lab Results InterpretationResultsLaboratory Tests 12/02/22 1222:[Embedded Image Not Available]Laboratory Tests: 12/02 12/02 1222 1215 Chemistry Sodium (134 - 147 mmol/L) 138 Potassium (3.4 - 5.0 mmol/L) 4.4 Chloride (100 - 108 mmol/L) 104 Carbon Dioxide (21 - 32 mmol/L) 30 Anion Gap (4.0 - 15.0 GAP calc) 4.0 BUN (7 - 18 MG/DL) 11 Creatinine (0.6 - 1.0 MG/DL) 1.2 H Glomerular Filtr Rate (>60 estGFR) 58 L Glucose (70 - 110 MG/DL) 107 Calcium (8.5 - 10.1 MG/DL) 8.5 Total Bilirubin (0.2 - 1.2 MG/DL) 0.30 AST (15 - 37 Unit/L) 22 ALT (12 - 78 Unit/L) 29 Total Alk Phosphatase (45 - 117 Unit/L) 92 Total Protein (6.4 - 8.2 G/DL) 8.3 H Albumin (3.4 - 5.0 G/DL) 3.2 L Globulin (GM/dL) 5.1 Albumin/Globulin Ratio (1.2 - 2.2 RATIO) 0.6 L Hematology WBC (3.5 - 11.0 K/mm3) 3.8 RBC (4.70 - 6.10 M/mm3) 4.54 L Hgb (10.4 - 14.9 G/DL) 11.3 Hct (31.5 - 44.1 %) 36.2 MCV (84.5 - 98.6 Fl) 79.7 L MCH (27.0 - 34.2 pg) 24.9 L MCHC (31.5 - 34.0 G/DL) 31.2 L RDW (11.5 - 14.5 SD) 15.8 H Plt Count (150 - 450 K/mm3) 384 MPV (7.0 - 10.5 fL) 10.90 H Urines Urine Color (YEL/STRAW discript) STRAW Urine Appearance (CLEAR discript) CLOUDY H Urine pH (5.0 - 7.0 pH UNITS) 6.5 Ur Specific [place] (1.005 - 1.030 SG) 1.015 Urine Protein (NEG mg/dL) NEGATIVE Urine Glucose (UA) (NEG mg/dL) NEGATIVE Urine Ketones (NEG mg/dL) NEGATIVE Urine Blood (NEG mg/DL) TRACE H Urine Nitrite (NEG SCREEN) NEGATIVE Urine Bilirubin (NEG mg/dL) NEGATIVE Urine Urobilinogen (<2.0 mg/dL) 0.2 Ur Leukocyte Esterase (NEGATIVE Leuk/mcL) 3+ H Urine RBC (0 - 3 #RBC/HPF) 5-10 H Urine WBC (0 - 3 #WBC/HPF) 20-30 H Urine Bacteria (NONE - TRACE /HPF) TRACE Urine Culture Screen (Culture CHK Criteria) YES,WBC>10 EPI<25 Urine HCG, Qual (NEGATIVE) NEGATIVE 12/02 1211 Miscellaneous Maternal Serum HCG (0 - 6 mi-IU/ML) < 1 Microbiology: Date/Time Procedure - Status Source Growth 12/02 1236 Urine Culture - COMP URINE Point of Care TestingPulse Oximetry Pulse Ox % 99 On: Room air Interpretation Interpreted by me Re-Evaluation MDM Free Text MDM NotesFree Text MDM Zrhfo05-izdj-izo female presenting with chief complaint of generalized itching and dysuria. Suspicion of generalized itching is due to drug allergies. Patient stopped antibiotics. Patient given oral prednisone, Benadryl and famotidine forgeneralized itching and hives. Patient complaint of burning with urination. Will admit patient for complicated UTI because patient failed outpatient treatment. Discussed plan of care with patient, all questions and concerns wereaddressed. Additional [id number]-yzgp-gxj female presents with chief complaint of hives. Low suspicion for anaphylaxis because no wheezing, abdominal pain, nausea or vomiting, difficulty breathing. Low suspicion for angioedema because no facial swelling or lip swelling. )( Re-Evaluation/Progress #1)( Re-Eval Status stable ED CourseMedication(s) OrderedMedication(s) Ordered:Antihistamine Drugs Sig/Mona Start time Last Medication Dose Route Stop Time Status Admin Diphenhydramine HCl 25 MG X1ED STA 12/02 1214 DC 12/02 PO 12/02 1214 1219 Gastrointestinal Drugs Sig/Mona Start time Last Medication Dose Route Stop Time Status Admin Famotidine 20 MG X1ED STA 12/02 1214 DC 12/02 PO 12/02 1214 1219 Hormones And Synthetic Substit Sig/Mona Start time Last Medication Dose Route Stop Time Status Admin Prednisone 50 MG X1ED STA 12/02 1214 DC 12/02 PO 12/02 1214 1219 Differential DiagnosisDifferential Diagnosis Allergic reaction, Anaphylaxis, Angioedema, Angioneuroticedema, Bronchospasm, Cellulitis, Contact dermatitis, Drug reaction, Erythema multiforme, Gastroenteritis, Hemolytic uremic syndrome, Idiopathic thromb purpura, Insect bite, Latex allergy, MRSA, Rhinitis, Seasonal allergy, Status asthmaticus, Patel-Ace syndrome, Urticaria, Viral exanthem, Viral syndrome Patient Discharge Departure Vital Signs/ConditionVital SignsFirst Documented: Result Date Time Pulse Ox 99 12/02 1158 B/P 136/69 /10 1158 B/P Mean 91 /10 1158 O2 Delivery Room air 12/02 1158 Temp 36.4 12/02 1158 Pulse 78 /10 1158 Resp 19 12/02 1158 Last Documented: Result Date Time Pulse Ox 99 12/02 1158 B/P 136/69 10 1158 B/P Mean 91 /10 1158 O2 Delivery Room air 12/02 1158 Temp 36.4 10 1158 Pulse 78 /10 1158 Resp 19 12/02 1158 All vital signs available at the time of this entry have been reviewed. Condition Guarded Clinical ImpressionClinical ImpressionPrimary Impression: Complicated UTI (urinary tract infection)Secondary Impressions: Allergic reaction Disposition DecisionHospitalize Hosp Physician Name Grace Castano MD Hosp Physician Hospitalist Request Time 1247 Request Date 12/02/22 )( Accepts Hospitalization Yes )( Reason for Hospitalizationcomplicated uti )( Accepted Time 1247 )( Accepted Date 12/02/22 Call Information will see patient Discharge/Care PlanCounseled Regarding Diagnosis, Lab results, Need for admission Admit NoteI have spoken with the patient and/or caregivers. I have explained the patient'scondition, diagnoses and treatment plan based on the information available to meat this time. I have answered the patient's and/or caregiver's questions and addressed any concerns. The patient and/or caregivers have as good an understanding of the patient's diagnosis, condition and treatment plan as can beexpected at this point. The patient has been stabilized within the capability ofthe emergency department. The patient will be transported for further care and management or will be moved to an observation or inpatient service. I have communicated with the staff or medical practitioner taking over this patient's care. Allen Yeboah 12/06/22 0932:Past Medical History - AdultAllergiesCoded Allergies:ertapenem (Mild, Itching 12/02/22)sumatriptan (From IMITREX) (ITCHY 08/30/21) Home MedicationsActive ScriptsLOSARTAN (COZAAR) 25 MG PO DAILY 1800 LOSARTAN (COZAAR) 25 MG PO DAILY 1800 #30 TAB Ref 1 Prov: 11/04/22LEVOTHYROXINE (SYNTHROID) 125 MCG PO DAILY 0700 LEVOTHYROXINE (SYNTHROID) 125 MCG PO DAILY 0700 #30 TAB Ref 1 Prov: 11/04/22HYDROcodone/APAP (HYDROcodone/APAP 7.5/325) 1 TAB PO Q4H HYDROcodone/APAP (HYDROcodone/APAP 7.5/325) 1 TAB PO Q4H #12 TABS Prov: 11/07/22 Discontinued ScriptsMEROPENEM (MERREM) 500 MG IV Q8HR Reported MedicationsSEMAGLUTIDE (OZEMPIC PEN (4 MG/3mL)) 1 MG SUBQ Q7D Patient Discharge Departure Quality MeasuresBP F/U for HTN Referred for BP f/u < 4wk, F/u with PCP/other [id number] ECG for CP Performed documented Supervising Physician Note MidLv/Doc Saw Pt 1I have personally seen the patient and I evaluated the patient along with involvement of the PA/PRODUCT DEVELOPMENT CARPENTER. I agree with the PA/nutritional chemist findings and plan. I have performed all aspects of MDM as documented including: evaluation of the patient/patient's condition(s), review and analysis of available data, and determinationof risk of patient management decisions. at 9233 at 0934 RPT #: [id number] OF REPORTEDEmergency department jntmvk8864-22-37P67:14:00L.[id number] ilable for patient ehomSUSZXALPMTEDOW8605-57-08S71:58:56 [facility] 2022-11-24 14:09:00 [id number] OGgC9eYmX3WFbBVh+12N+LdOeevYI CAIG1UgDeOXcx5z2dvxn3EB48ko8470-06-28N68:09:00 [facility] ([facility])Hospitalist Discharge SummaryREPORT#:[id number] REPORT STATUS: SignedDATE:11/24/22 TIME:1409 PATIENT: DAVID BELLO UNIT #: [id number]#: [id number] [address] [birth year] AGE: 42 SEX: F ATTEND: Glen Nava [facility] AUTHOR: Grace Castano MD * ALL edits or amendments must be made on the electronic/computer document * General InformationDischarge date: 11/24/22Discharge diagnosis:Sepsis with ESBL E. coli bacteremia.Acute pyelonephritis due to ESBL E. coliRight kidney stone with right hydronephrosis s/p ureteral stent placement 11/21/22. Appreciate help from urology and IDPain control Acute kidney injury on CKD stage IIIV hydrationRenal parameters monitoredNephrology consult appreciated HypertensionContinue home medications Diabetes 2Insulin sliding scale Hypomagnesemia - repleted GI/DVT prophylaxisAdvanced directive full code Picc today, no oral option, patient to receive 10 days of IV Merrem / Ertepenem ( on dc) starting from ureteral stent placement, home with home health, repeat blood cultures negative for 24 hours, case management for arrangementok to dc when above arrnagedHospital course:Sepsis with ESBL E. coli bacteremia.Acute pyelonephritis due to ESBL E. coliRight kidney stone with right hydronephrosis s/p ureteral stent placement 11/21/22. Appreciate help from urology and IDPain control Acute kidney injury on CKD stage IIIV hydrationRenal parameters monitoredNephrology consult appreciated HypertensionContinue home medications Diabetes 2Insulin sliding scale Hypomagnesemia - repleted GI/DVT prophylaxisAdvanced directive full code Picc today, no oral option, patient to receive 10 days of IV Merrem / Ertepenem ( on dc) starting from ureteral stent placement, home with home health, repeat blood cultures negative for 24 hours, case management for arrangementok to dc when above arrnagedConsultants: infectious diseasePt. condition on discharge: improved, stable Free Text DxA P NotesFree text DxA P notes:Sepsis with ESBL E. coli bacteremia.Acute pyelonephritis due to ESBL E. coliRight kidney stone with right hydronephrosis s/p ureteral stent placement 11/21/22. Appreciate help from urology and IDPain control Acute kidney injury on CKD stage IIIV hydrationRenal parameters monitoredNephrology consult appreciated HypertensionContinue home medications and titrate as needed Diabetes 2Insulin sliding scale Hypomagnesemia - repleted GI/DVT prophylaxisAdvanced directive full code Midline today, no oral option, patient received 10 days of IV Merrem / Ertepenem( on dc) starting from ureteral stent placement, likely home with home health, repeat blood cultures negative for 24 hours, case management for arrangement Med Rec Med RecDischarge meds:Continue taking these medications:SEMAGLUTIDE (OZEMPIC PEN (4 MG/3mL)) 1 MG/0.75 ML (4 MG/3 ML) PEN.INJCTR 1 MILLIGRAM SUBCUTANEOUS EVERY 7 DAYS. LOSARTAN (COZAAR) 25 MG TAB 25 MILLIGRAM ORAL DAILY AT 1800. Qty = 30 LEVOTHYROXINE (SYNTHROID) 125 MCG TAB 125 MICROGRAM ORAL DAILY AT 0700. Qty = 30 HYDROcodone/APAP (HYDROcodone/APAP 7.5/325) 7.5 MG-325 MG TAB 1 TABLET ORAL EVERY FOUR HOURS. Qty = 12 Start taking the following new medications:MEROPENEM (MERREM) 500 MG VIAL 500 MILLIGRAM INTRAVENOUS EVERY 8 HOURS. Days = 10 No Refills ObjectiveGeneral appearance: awakeENT: normal noseRespiratory: aerating wellRectal: deferredExtremities: moves allNeuro/EARLY HEAD START TEACHER: alert, oriented X 3Skin: dryLymphatics: no lymphadenopathy Free Text Obj NotesFree Text Obj Notes:Physical ExamGeneral appearance: alert, awake, orientedHEENT : normocephalic ,AtraumaticEyes: Eyes normal inspection.ENT: Dry mucous membranes present.Neck: Normal inspection. Neck supple.CVS: Normal heart rate and rhythm. Heart sounds normal.Respiratory: No respiratory distress. Breath sounds normal.Abdomen: Soft and nontender.Genitourinary: no bladder distentionBack: Normal inspection.Skin: Skin warm. Normal skin color. No rash.Extremities: No lower extremity edema.Neuro: Oriented X 3. No motor deficitNo generalized lymph adenopathyPsych normal affect Discharge Instructions PCPPCP follow-up:PCP: Javi Cuadra MD Discharge to: Home/Self CareAdditional Discharge Routines: PCP Follow-UpDiet: RegularActivity: As ToleratedPrescriptions: on chartDischarge management: greater than 30 mins at 1414 RPT #: [id number] OF REPORT DSDischarge zsywnkk6319-60-88Q16:09:00L.[id number] ailable for patient zjujGZLZWOJXOCHVBC4252-08-48E46:14:42 [facility] 2022-11-24 14:06:00 [id number] [id number] Am1IOYM7x/GTb8apFN1cUMJSKCl8893-30-60M60:06:00 [facility] ([facility])Nephrology Progress NoteREPORT#:[id number] REPORT STATUS: SignedDATE:11/24/22 TIME:1406 PATIENT: DAVID BELLO HQIRRO N UNIT #: [id number]#: [id number] [address] [birth year] AGE: 42 SEX: F ATTEND: Glen Nava [facility] AUTHOR: Arash Rivera MD * ALL edits or amendments must be made on the electronic/computer document * SubjectiveChief complaint:AKIHPI:42 yo female with history of HTN, DM, previou episodes of UTI, hypothyrodism, kidney stones, pericardial effusion, s/p pericardiocenthesis, presented to ER c/o fever and nausea. pateint was recently treated for complicated UTI. Readmitted with fever, weakness and vomiting. Patient fount to have worsening SHER and UTI.Patient has hitory of kidney stone, s/p resection; and CKD stage 2 to 3. Renal is consulted for evaluation of renal failure. Comments:Denies sob. Review of Systems Free Text ROS NotesFree Text ROS Notes:10 points ROS performed and documented in subjective, otherwise negative. Objective GeneralVS/I O:Vital Signs: Date Time Temp Pulse Resp B/P B/P Pulse O2 O2 Flow FiO2 Mean Ox Delivery Rate 11/24 1349 36.7 65 14 128/77 93.9 97 Room air 11/24 0359 36.5 66 14 143/87 105.9 96 Room air 11/23 2342 36.5 59 14 161/87 111.9 95 Room air 11/23 2010 36.5 67 14 143/85 104.3 99 Room air 11/23 1551 36.6 54 14 138/85 102.6 96 Room air 24 hour I O ending at 0700: 11/24 0700 11/23 1900 Intake Total 340.00 420 Output Total Balance 340.00 420 Intake, IV 40.00 Intake, Oral 300 420 Number Voids 3 2 MedicationsActive Meds + DC'd Last 24 HrsMeropenem (MERREM) 500 MG Q8HR IV Sterile Water (WATER FOR INJECTION) 10 MLDocusate Sodium (COLACE) 100 MG BID PO Pregabalin (LYRICA) 75 MG BID PO (DC) Losartan Potassium (COZAAR) 25 MG DAILY 1800 PO Ondansetron HCl (ZOFRAN) 8 MG Q8H PRN PRN PO Ondansetron HCl (ZOFRAN) 8 MG Q8H PRN PRN IV Scopolamine HBr (TRANSDERM-SCOP) 1.5 MG PREOP ASDIR TRANSDERM (CKD) Dextrose/Water (DEXTROSE 10% IN WATER 250 ML) 250 ML ASDIR IV Glucagon (GLUCAGON) 1 MG ASDIR PRN IM Levothyroxine Sodium (SYNTHROID) 125 MCG AC BK PO Hydromorphone HCl (DILAUDID) 0.2 MG Q6H PRN PRN IV (DC) Acetaminophen (TYLENOL) 650 MG Q4H PRN PRN PO Morphine Sulfate (morphine SULFATE) 4 MG Q4H PRN IV (DC) Physical ExamGeneral appearance: awakeHead/eyes: normocephalicENT: normal noseNeck: supple/no meningismus, no JVD C-Spine clearance: no midline tendernessCardiovascular: no murmurRespiratory: no distressAbdomen: non-tender, normal bowel sounds, softGenitourinary: no bladder distentionExtremities: no edemaMusculoskeletal: no tenderenessNeuro/EARLY HEAD START TEACHER: alert, oriented X 3 ResultsRadiology data:Recent Impressions:RADIOLOGY - XR CHEST 1 V 11/24 1310 Report Impression - Status: SIGNED Entered: 11/24/2022 1326 IMPRESSION: 1. Left arm PICC is appropriately positioned.Impression By: Neetu Longoria M.D. Diagnosis, Assessment PlanFree Text A P:1. SHER on CKD stage 2 to 3. Etiology likely ATN Last creat 2.0 from 2.22. Hyponatremialikely hypovolemic hyponatremia. 3. UTI. 4. Right kidney stone / mild to mderate hydronephrosis. 5. HTN. 6. DM. 7. Hypovolemia. Recommendations:11/24: Oral hydration. Avoid NSAID. 11/23:Continue iv fluids. : Continue with IV fluids. Avoid NSAIDs. Monitor BMP, electrolyte, supplement as needed.11/21: Continue IV fluids. Avoid NSAID. 11/20: NS 100 ml/hour. Avoid NSAID Urine studies. Drug dose adjustment to GFR. Thank you for the consultation, any question please call [phone]. at [phone] [facility] #: [id number] OF REPORT PRProgress mlxm7771-20-98Q47:06:00L.[id number] able for patient xmkpELSSJXSRVJREUB8121-85-12N23:58:15 [facility] 2022-11-24 10:40:00 [id number] ViqCzlg/RvUFs6lldk/643d7Udfpi l/f6GikF+4Nas3adLH9XYrmC9mz8957-91-83P64:40:00 [facility] ([facility])Hospitalist Progress NoteREPORT#:[id number] REPORT STATUS: SignedDATE:11/24/22 TIME:1040 PATIENT: DAVID BELLO HQIRRO David UNIT #: [id number]#: [id number] [address] [birth year] AGE: 42 SEX: F ATTEND: Glen Nava [facility] AUTHOR: Grace Castano MD * ALL edits or amendments must be made on the electronic/computer document * SubjectiveChief complaint:Stable, no new complaintsHPI:42-year-old female with history of stage II CKD, hypertension, diabetes, pericardial effusion status post pericardiocentesis and large right 1.8 mm stonein the distal pole of right kidney came in with right flank pain. She was recently admitted on 11/01 for obstructive uropathy from a 1.8 mm right kidney stone. Urine grew out ESBL bacteria. The plan per the urology note was for outpatient follow-up for ultrasound and possible lithotripsy versus stent after the infection cleared. The patient return to the ED because of persistent pain.She reports intractable right flank pain radiating to the right mid abdomen associated with nausea and nonbloody nonbilious emesis. She reports objective fever, chills and extreme diaphoresis. Objective GeneralDietitian nutrition assessmentThe data set between the solid lines has been imported from the dietitian's assessment. BMI Calculated: 36.7Nutrition related diagnosis: Nutrition diagnosis details: Nutrition problem: Nutrition etiology: Nutrition signs and symptoms: Nutrition prescription: Dietitian name: Assessment completed: Physical ExamGeneral appearance: awakeENT: normal noseRespiratory: aerating wellRectal: deferredExtremities: moves allNeuro/EARLY HEAD START TEACHER: alert, oriented X 3Skin: dryLymphatics: no lymphadenopathy Free Text Obj NotesFree Text Obj Notes:Physical ExamGeneral appearance: alert, awake, orientedHEENT : normocephalic ,AtraumaticEyes: Eyes normal inspection.ENT: Dry mucous membranes present.Neck: Normal inspection. Neck supple.CVS: Normal heart rate and rhythm. Heart sounds normal.Respiratory: No respiratory distress. Breath sounds normal.Abdomen: Soft and nontender.Genitourinary: no bladder distentionBack: Normal inspection.Skin: Skin warm. Normal skin color. No rash.Extremities: No lower extremity edema.Neuro: Oriented X 3. No motor deficitNo generalized lymph adenopathyPsych normal affect Diagnosis, Assessment Plan Free Text DxA P NotesFree text DxA P notes:Sepsis with ESBL E. coli bacteremia.Acute pyelonephritis due to ESBL E. coliRight kidney stone with right hydronephrosis s/p ureteral stent placement 11/21/22. Appreciate help from urology and IDPain control Acute kidney injury on CKD stage IIIV hydrationRenal parameters monitoredNephrology consult appreciated HypertensionContinue home medications and titrate as needed Diabetes 2Insulin sliding scale Hypomagnesemia - repleted GI/DVT prophylaxisAdvanced directive full code Midline today, no oral option, patient received 10 days of IV Merrem / Ertepenem( on dc) starting from ureteral stent placement, likely home with home health, repeat blood cultures negative for 24 hours, case management for arrangement at [address] [facility] #: [id number] OF REPORT PRProgress bjnn6482-19-02G06:40:00L.[id number] able for patient fmlyWUYVGUIASWAEYN3807-50-00A97:43:16 [facility] 2022-11-23 23:40:00 [id number] BuDJzgcKifFhTQW7qGSexeEFslfGS YROpOZXjuzZ+jgUce3S4SZfUIE/1351-14-96P84:40:00 [facility] Progress NoteREPORT#:[id number] REPORT STATUS: SignedDATE:11/23/22 TIME:2340 PATIENT: DAVID BELLO UNIT #: [id number]#: [id number] [address] [birth year] AGE: 42 SEX: F ATTEND: Glen Nava [facility] AUTHOR: Brett Rodriguez MD * ALL edits or amendments must be made on the electronic/computer document * SubjectiveChief complaint:complicated uti obstructed infected right kidneyComments:no acute eventscurrently minimal painhaivng bm, flatus Objective GeneralVS/I O:Last Documented: Result Date Time Pulse Ox 99 11/23 2010 B/P 143/85 11/23 2010 B/P Mean 104.3 11/23 2010 O2 Delivery Room air 11/23 2010 Temp 97.7 11/23 2010 Pulse 67 11/23 2010 Resp 14 11/23 2010 O2 Flow Rate 2 11/22 0830 24 hour I O ending at 0700: 11/23 0700 11/22 1900 Intake Total 420.00 Output Total Balance 420.00 Intake, IV 40.00 Intake, Oral 380 Number Voids 3 PATIENT WEIGHT: Weight (lb): Weight (oz): Weight (kg): 100.000 Physical ExamGeneral appearance: alert, awake, orientedRespiratory: aerating well, symmetric expansionAbdomen: soft, non-tender, no guarding, no distention Diagnosis, Assessment PlanFree Text A P:A: complicated utiinfected obstructed right kidney with stone P: s/p stentcontinue antibioticsculture noted, blood culture positivewill need follow up ureteroscopy, to arrange as outpt at 2342 RPT #: [id number] OF REPORT PRProgress iiwh2696-67-60L15:40:00L.[id number] able for patient lcyhJXSANLKPRUKLJJ1408-69-32P90:42:19 [facility] 2022-11-23 15:15:00 [id number] RlqZGbPWHCTBfu3FbGMVCnOIz9MAx tOfAg+dIHiq308ZgX5PXYMkz6mv6316-80-80J07:15:00 [facility] ([facility])Infectious Dis. Progress NoteREPORT#:[id number] REPORT STATUS: SignedDATE:11/23/22 TIME:1515 PATIENT: ADVID BELLO HQIRRO N UNIT #: [id number]#: [id number] [address] [birth year] AGE: 42 SEX: F ATTEND: Glen Nava [facility] AUTHOR: Robyn Haddad MD * ALL edits or amendments must be made on the electronic/computer document * SubjectiveComments:endorses feeling betterdenies any issues with abx therapy some pain with stentreports hematuria has improved Objective GeneralVS/I O:Vital SignsDate Temp Pulse Resp B/P B/P Mean Pulse Ox ZzX117/31-11/23 97.9-98.2 54-65 12-18 116-153/75-100 88.8-118.0 93-97 Last Documented: Result Date Time Pulse Ox 96 11/23 1551 B/P 138/85 / 1551 B/P Mean 102.6 11/23 1551 O2 Delivery Room air 11/23 1551 Temp 97.9 09/ 1551 Pulse 54 / 1551 Resp 14 11/23 1551 O2 Flow Rate 2 11/22 0830 Vital Signs: Date Time Temp Pulse Resp B/P B/P Pulse O2 O2 Flow FiO2 Mean Ox Delivery Rate 11/23 1551 97.9 54 14 138/85 102.6 96 Room air 11/23 1359 98.2 56 14 116/75 88.8 95 Room air 11/23 0642 97.9 60 14 148/96 113.5 97 Room air 11/23 0328 59 12 144/80 101.1 93 11/23 0002 65 12 153/100 118.0 95 11/22 2020 64 18 121/87 98.2 94 24 hour I O ending at 0700: 11/23 0700 11/22 1900 Intake Total 420.00 Output Total Balance 420.00 Intake, IV 40.00 Intake, Oral 380 Number Voids 3 PATIENT WEIGHT: Weight (lb): Weight (oz): Weight (kg): 100.000 Medications:Active Meds + DC'd Last 24 HrsMeropenem (MERREM) 500 MG Q8HR IV Sterile Water (WATER FOR INJECTION) 10 MLDocusate Sodium (COLACE) 100 MG BID PO Pregabalin (LYRICA) 75 MG BID PO Losartan Potassium (COZAAR) 25 MG DAILY 1800 PO Ondansetron HCl (ZOFRAN) 8 MG Q8H PRN PRN PO Ondansetron HCl (ZOFRAN) 8 MG Q8H PRN PRN IV Scopolamine HBr (TRANSDERM-SCOP) 1.5 MG PREOP ASDIR TRANSDERM (CKD) Acetaminophen (TYLENOL EXTRA STRENGTH) 1,000 MG PREOP ONCE PO (DC) Celecoxib (CeleBREX) 200 MG PREOP ONCE PO (DC) Gabapentin (NEURONTIN) 200 MG PREOP ONCE PO (DC) Dextrose/Water (DEXTROSE 10% IN WATER 250 ML) 250 ML ASDIR IV Glucagon (GLUCAGON) 1 MG ASDIR PRN IM Levothyroxine Sodium (SYNTHROID) 125 MCG AC BK PO Hydromorphone HCl (DILAUDID) 0.2 MG Q6H PRN PRN IV Acetaminophen (TYLENOL) 650 MG Q4H PRN PRN PO Morphine Sulfate (morphine SULFATE) 4 MG Q4H PRN IV (DC) Physical ExamGeneral appearance: no acute distressHead/Eyes: atraumatic, clear cornea, EOMI, normal conjunctiva/sclera, normal eyelids/periorb, normocephalicENT: moist mucosal membranes, normal noseNeck: supple/no meningismusCardiovascular: regular rate rhythmRespiratory: symmetric expansion, no distressAbdomen: no distention, no guarding, slight tenderness to palpation Genitourinary: flank painExtremities: no clubbing, no cyanosisMusculoskeletal: no joint swellingNeuro/EARLY HEAD START TEACHER: alert, oriented X 3, CNII-XII intact, normal speechSkin: normal turgor, no rashPsychiatry: normal affect, normal judgment/insight, normal mood Diagnosis, Assessment PlanFree Text A P:Laboratory Tests 11/21/22 0820:[Embedded Image Not Available] 11/20/22 1325:[Embedded Image Not Available] Imaging:Retrop US reviewed 11/20 42-year-old female with h/o CKD stage II, hypertension, diabetes, pericardial effusion s/p pericardiocentesis and large right stone in the distal pole of right kidney, who came with worsening right severe flank pain associated with vomiting and fever. She was admitted on 11/01/22 for obstructive uropathy from a right kidney stone. Urine and blood cxs showed ESBL E. coli. She is s/p stent placement with urology. Repeat blood cultures were sent to document clearance Assessment:1. Sepsis with ESBL E. coli bacteremia.2. Acute pyelonephritis due to ESBL E. coli.3. SHER on CKD stage 2.4. Right kidney stone with right hydronephrosis s/p ureteral stent placement 11/21/22. Plan:1. Continue meropenem here. Ertapenem at discharge. 2. No oral options to treat as bacterium is resistant to Bactrim and ciprofloxacin. Cephalosporinase? Amp/sul and Zosyn still susceptible? will discuss with Pharm D. --> 3. Duration: 10 days starting from ureteral stent placement.4. Can place midline once blood cxs are neg for at least 24 h.5. Monitor CBC.6. Monitor kidney function.7. Urology following.8. Plan discussed with pt, who agreed. Tahnk you for this consult. at 1746 RPT #: [id number] OF REPORT PRProgress ddzq3040-88-11R44:15:00L.[id number] able for patient asttJDDVXBBHQJQWUF2274-72-76L77:46:31 [facility] 2022-11-23 15:01:00 [id number] FobfBVoNEtczIXYmqxa8NxJeRy7Dq /iDQl3xJj8Td+7qMi1wdtOraOCk8096-38-93M68:01:00 [facility] ([facility])Nephrology Progress NoteREPORT#:[id number] REPORT STATUS: SignedDATE:11/23/22 TIME:1501 PATIENT: DAVID BELLO HQIRRO David UNIT #: [id number]#: [id number] [address] [birth year] AGE: 42 SEX: F ATTEND: Glen Nava [facility] AUTHOR: Arash Rivera MD * ALL edits or amendments must be made on the electronic/computer document * SubjectiveChief complaint:AKIHPI:42 yo female with history of HTN, DM, previou episodes of UTI, hypothyrodism, kidney stones, pericardial effusion, s/p pericardiocenthesis, presented to ER c/o fever and nausea. pateint was recently treated for complicated UTI. Readmitted with fever, weakness and vomiting. Patient fount to have worsening SHER and UTI.Patient has hitory of kidney stone, s/p resection; and CKD stage 2 to 3. Renal is consulted for evaluation of renal failure. Comments:Seen and examined at bedside, denies chest pain, SOB, nausea. Review of Systems Free Text ROS NotesFree Text ROS Notes:Ten point review of systems have been performed. Positive and negative pertinentsystems have been identified and documented in subjective/ history and physical,otherwise negative. Objective GeneralVS/I O:Vital Signs: Date Time Temp Pulse Resp B/P B/P Pulse O2 O2 Flow FiO2 Mean Ox Delivery Rate 11/23 1359 36.8 56 14 116/75 88.8 95 Room air 11/23 0642 36.6 60 14 148/96 113.5 97 Room air 11/23 0328 59 12 144/80 101.1 93 11/23 0002 65 12 153/100 118.0 95 11/22 2020 64 18 121/87 98.2 94 24 hour I O ending at 0700: 11/23 0700 11/22 1900 Intake Total 420.00 Output Total Balance 420.00 Intake, IV 40.00 Intake, Oral 380 Number Voids 3 MedicationsActive Meds + DC'd Last 24 HrsMeropenem (MERREM) 500 MG Q8HR IV Sterile Water (WATER FOR INJECTION) 10 MLDocusate Sodium (COLACE) 100 MG BID PO Pregabalin (LYRICA) 75 MG BID PO Losartan Potassium (COZAAR) 25 MG DAILY 1800 PO Ondansetron HCl (ZOFRAN) 8 MG Q8H PRN PRN PO Ondansetron HCl (ZOFRAN) 8 MG Q8H PRN PRN IV Scopolamine HBr (TRANSDERM-SCOP) 1.5 MG PREOP ASDIR TRANSDERM (CKD) Acetaminophen (TYLENOL EXTRA STRENGTH) 1,000 MG PREOP ONCE PO (DC) Celecoxib (CeleBREX) 200 MG PREOP ONCE PO (DC) Gabapentin (NEURONTIN) 200 MG PREOP ONCE PO (DC) Dextrose/Water (DEXTROSE 10% IN WATER 250 ML) 250 ML ASDIR IV Glucagon (GLUCAGON) 1 MG ASDIR PRN IM Levothyroxine Sodium (SYNTHROID) 125 MCG AC BK PO Hydromorphone HCl (DILAUDID) 0.2 MG Q6H PRN PRN IV Acetaminophen (TYLENOL) 650 MG Q4H PRN PRN PO Morphine Sulfate (morphine SULFATE) 4 MG Q4H PRN IV Physical ExamGeneral appearance: alert, awakeHead/eyes: normocephalicENT: normal noseNeck: supple/no meningismus, no JVD C-Spine clearance: no midline tendernessCardiovascular: no murmurRespiratory: no distressAbdomen: non-tender, normal bowel sounds, softGenitourinary: no bladder distentionExtremities: no edemaMusculoskeletal: no tenderenessNeuro/EARLY HEAD START TEACHER: alert, oriented X 3 ResultsResults: no new labs Diagnosis, Assessment PlanFree Text A P:1. SHER on CKD stage 2 to 3. Etiology likely ATN Last creat 2.0 from 2.22. Hyponatremialikely hypovolemic hyponatremia. 3. UTI. 4. Right kidney stone / mild to mderate hydronephrosis. 5. HTN. 6. DM. 7. Hypovolemia. Recommendations:11/23:Continue iv fluids. : Continue with IV fluids. Avoid NSAIDs. Monitor BMP, electrolyte, supplement as needed.11/21: Continue IV fluids. Avoid NSAID. 11/20: NS 100 ml/hour. Avoid NSAID Urine studies. Drug dose adjustment to GFR. Thank you for the consultation, any question please call [phone]. Plan discussed with: primary care physician, nurse at [address] [facility] #: [id number] OF REPORT PRProgress splx5956-41-25W45:01:00L.[id number] able for patient cshwJBVKXWYZJOZBTO9306-30-60E33:07:28 [facility] 2022-11-23 11:28:00 [id number] jAbukBXVQMNDo7BN7LfkkLFHo8CFC 79f6wsiSOpJCsk7aG9LWSWjUldM1615-76-90V70:28:00 [facility]Hospital[facility] Progress NoteREPORT#:[id number] REPORT STATUS: SignedDATE:11/23/22 TIME:1128 PATIENT: DAVID BELLO HQLONNIE Hernandez UNIT #: [id number]#: [id number] [address] [birth year] AGE: 42 SEX: F ATTEND: Glen Nava [facility] AUTHOR: Grace Castano MD * ALL edits or amendments must be made on the electronic/computer document * SubjectiveChief complaint:Stable, no new complaintsHPI:42-year-old female with history of stage II CKD, hypertension, diabetes, pericardial effusion status post pericardiocentesis and large right 1.8 mm stonein the distal pole of right kidney came in with right flank pain. She was recently admitted on 11/01 for obstructive uropathy from a 1.8 mm right kidney stone. Urine grew out ESBL bacteria. The plan per the urology note was for outpatient follow-up for ultrasound and possible lithotripsy versus stent after the infection cleared. The patient return to the ED because of persistent pain.She reports intractable right flank pain radiating to the right mid abdomen associated with nausea and nonbloody nonbilious emesis. She reports objective fever, chills and extreme diaphoresis. Objective GeneralVS/I O:Vital Signs: Date Time Temp Pulse Resp B/P B/P Pulse O2 O2 Flow FiO2 Mean Ox Delivery Rate 11/23 0642 97.9 60 14 148/96 113.5 97 Room air 11/23 0328 59 12 144/80 101.1 93 11/23 0002 65 12 153/100 118.0 95 11/22 2020 64 18 121/87 98.2 94 24 hour I O ending at 0700: 11/23 0700 11/22 1900 Intake Total 420.00 Output Total Balance 420.00 Intake, IV 40.00 Intake, Oral 380 Number Voids 3 PATIENT WEIGHT: Weight (lb): Weight (oz): Weight (kg): 100.000 Dietitian nutrition assessmentThe data set between the solid lines has been imported from the dietitian's assessment. BMI Calculated: 36.7Nutrition related diagnosis: Nutrition diagnosis details: Nutrition problem: Nutrition etiology: Nutrition signs and symptoms: Nutrition prescription: Dietitian name: Assessment completed: Physical ExamGeneral appearance: awakeENT: normal noseRespiratory: aerating wellRectal: deferredExtremities: moves allNeuro/EARLY HEAD START TEACHER: alert, oriented X 3Skin: dryLymphatics: no lymphadenopathy Free Text Obj NotesFree Text Obj Notes:Physical ExamGeneral appearance: alert, awake, orientedHEENT : normocephalic ,AtraumaticEyes: Eyes normal inspection.ENT: Dry mucous membranes present.Neck: Normal inspection. Neck supple.CVS: Normal heart rate and rhythm. Heart sounds normal.Respiratory: No respiratory distress. Breath sounds normal.Abdomen: Soft and nontender.Genitourinary: no bladder distentionBack: Normal inspection.Skin: Skin warm. Normal skin color. No rash.Extremities: No lower extremity edema.Neuro: Oriented X 3. No motor deficitNo generalized lymph adenopathyPsych normal affect Diagnosis, Assessment Plan Free Text DxA P NotesFree text DxA P notes:Sepsis with ESBL E. coli bacteremia.Acute pyelonephritis due to ESBL E. coliRight kidney stone with right hydronephrosis s/p ureteral stent placement 11/21/22. Appreciate help from urology and IDPain control Acute kidney injury on CKD stage IIIV hydrationRenal parameters monitoredNephrology consult appreciated HypertensionContinue home medications and titrate as needed Diabetes 2Insulin sliding scale Hypomagnesemia - repleted GI/DVT prophylaxisAdvanced directive full code Midline today, no oral option, patient received 10 days of IV Merrem starting from ureteral stent placement, likely home with home health at 1132 RPT #: [id number] OF REPORT PRProgress rhrm6632-30-27R17:28:00L.[id number] able for patient cckrEDDHBAXYPTKHRX1429-40-57Z23:33:05 [facility] 2022-11-22 22:39:00 [id number] IO4RL1YreKXXJxcpCRtmV5pxofIme W3oC5WNU/Scot/1btIfr/r+wrMrP6733-64-42N30:39:00 [facility] ([facility])Urology Progress NoteREPORT#:[id number] REPORT STATUS: SignedDATE:11/22/22 TIME:2238 PATIENT: DAVID BELLO HQIRRO N UNIT #: [id number]#: [id number] [facility]ED[facility]DOB: [birth year] AGE: 42 SEX: F ATTEND: Geln Nava AUTHOR: Brett Rodriguez MD * ALL edits or amendments must be made on the electronic/computer document * SubjectiveChief complaint:complicated utiobstructed infected right kidneyComments:no acute eventsfeels bettertolerating stenttolerating po better Objective GeneralVS/I O:Last Documented: Result Date Time Pulse Ox 94 08/31 2020 B/P 121/87 11/23 2019 B/P Mean 98.2 11/23 2019 Pulse 64 11/23 2019 Resp 18 11/23 2019 O2 Flow Rate 2 11/22 08 O2 Delivery Room air 11/22 07 Temp 97.7 11/22 0716 24 hour I O ending at 0700: 11/22 0700 11/21 1900 Intake Total 400 Output Total Balance 400 Intake, Oral 400 Number Voids 3 PATIENT WEIGHT: Weight (lb): Weight (oz): Weight (kg): 100.000 Physical ExamGeneral appearance: alert, awake, orientedRespiratory: aerating well, symmetric expansionAbdomen: soft, non-tender, no guarding, no distention Diagnosis, Assessment PlanFree Text A P:A: complicated utiinfected obstructed right kidney with stone P: s/p stentcontinue antibioticsculture notedwill need follow up ureteroscopy, to arrange as outpt at 2241 RPT #: [id number] OF REPORT PRProgress xpng0730-60-79V01:39:00L.[id number] able for patient euwmYCXRVKCYKSIMMD1154-86-35Q44:41:53 [facility] 2022-11-22 20:29:00 [id number] zFZAYqXnwBFhCBX/8KKFp4fhYBsdy /paF0OJOCzBhRuYFzpxhN76cIOT0297-39-03G61:29:00 [facility] ([facility])Nephrology Progress NoteREPORT#:[id number] REPORT STATUS: SignedDATE:11/22/22 TIME:2028 PATIENT: DAVID BELLO UNIT #: [id number]#: [id number] [address] [birth year] AGE: 42 SEX: F ATTEND: Glen Nava [facility] AUTHOR: Arash Rivera MD * ALL edits or amendments must be made on the electronic/computer document * SubjectiveHPI:42 yo female with history of HTN, DM, previou episodes of UTI, hypothyrodism, kidney stones, pericardial effusion, s/p pericardiocenthesis, presented to ER c/o fever and nausea. pateint was recently treated for complicated UTI. Readmitted with fever, weakness and vomiting. Patient fount to have worsening SHER and UTI.Patient has hitory of kidney stone, s/p resection; and CKD stage 2 to 3. Renal is consulted for evaluation of renal failure. Comments:Patient seen in the morning at bedside. Denies shortness of breath, chest pain.Creatinine trending down. Review of Systems Free Text ROS NotesFree Text ROS Notes:10 points review of systems performed and documented in subjective, otherwise negative. Objective GeneralVS/I O:Vital Signs: Date Time Temp Pulse Resp B/P B/P Pulse O2 O2 Flow FiO2 Mean Ox Delivery Rate 11/22 2020 64 18 121/87 98.2 94 11/22 0830 2 11/22 0716 36.5 64 14 118/69 85.2 93 Room air 11/21 2306 36.5 79 18 108/73 84.4 98 24 hour I O ending at 0700: 11/22 0700 11/21 1900 Intake Total 400 Output Total Balance 400 Intake, Oral 400 Number Voids 3 MedicationsActive Meds + DC'd Last 24 HrsMeropenem (MERREM) 500 MG Q8HR IV Sterile Water (WATER FOR INJECTION) 10 MLDocusate Sodium (COLACE) 100 MG BID PO Pregabalin (LYRICA) 75 MG BID PO Losartan Potassium (COZAAR) 25 MG DAILY 1800 PO Hydrocodone Bitart/Acetaminophen (NORCO 5/325) 1 TAB PACU ONCE PRN PO (DC) Hydrocodone Bitart/Acetaminophen (NORCO 10/325) 1 TAB PACU ONCE PRN PO (DC) Hydromorphone HCl (DILAUDID) 0.5 MG PACU Q10MIN PRN PRN IV (DC) Insulin Human Lispro (HUMALOG) 0 PACU ONCE PRN SUBQ (DC) Labetalol HCl (TRANDATE) 5 MG PACU Q10MIN PRN PRN IV (DC) Lactated Ringer's (LACTATED RINGERS) 1,000 ML ASDIR IV (DC) Meperidine HCl (DEMEROL) 12.5 MG PACU ONCE PRN IV (DC) Ondansetron HCl (ZOFRAN) 4 MG PACU ONCE PRN IV (DC) Ondansetron HCl (ZOFRAN) 8 MG Q8H PRN PRN PO Ondansetron HCl (ZOFRAN) 8 MG Q8H PRN PRN IV Scopolamine HBr (TRANSDERM-SCOP) 1.5 MG PREOP ASDIR TRANSDERM (CKD) Acetaminophen (TYLENOL EXTRA STRENGTH) 1,000 MG PREOP ONCE PO (CKD) Celecoxib (CeleBREX) 200 MG PREOP ONCE PO (CKD) Gabapentin (NEURONTIN) 200 MG PREOP ONCE PO (CKD) Dextrose/Water (DEXTROSE 10% IN WATER 250 ML) 250 ML ASDIR IV Glucagon (GLUCAGON) 1 MG ASDIR PRN IM Piperacillin Sod/Tazobactam Sod (ZOSYN) 3.375 GM Q8H IV (DC) Sodium Chloride (SODIUM CHLORIDE 0.9%) 100 MLLevothyroxine Sodium (SYNTHROID) 125 MCG AC BK PO Hydromorphone HCl (DILAUDID) 0.2 MG Q6H PRN PRN IV Acetaminophen (TYLENOL) 650 MG Q4H PRN PRN PO Morphine Sulfate (morphine SULFATE) 4 MG Q4H PRN IV Physical ExamGeneral appearance: alert, awakeHead/eyes: normocephalicENT: normal noseNeck: no JVD C-Spine clearance: no midline tendernessCardiovascular: no murmurRespiratory: no distressAbdomen: non-tender, softGenitourinary: no bladder distentionExtremities: no edemaMusculoskeletal: no tenderenessNeuro/EARLY HEAD START TEACHER: alert, oriented X 3 Diagnosis, Assessment PlanFree Text A P:1. SHER on CKD stage 2 to 3. Etiology likely ATN creat 2.0 from 2.22. Hyponatremialikely hypovolemic hyponatremia. 3. UTI. 4. Right kidney stone / mild to mderate hydronephrosis. 5. HTN. 6. DM. 7. Hypovolemia. Ovxivlplsdpjktf30/31: Continue with IV fluids. Avoid NSAIDs. Monitor BMP, electrolyte, supplement as needed.11/21: Continue IV fluids. Avoid NSAID. 11/20: NS 100 ml/hour. Avoid NSAID Urine studies. Drug dose adjustment to GFR. Thank you for the consultation, any question please call [phone]. at [address] [facility] #: [id number] OF REPORT PRProgress ghcf4440-10-89W55:29:00L.[id number] able for patient epmaSKZVKHJIWGRFEU8006-54-90L38:31:10 [facility] 2022-11-22 10:42:00 [id number]/OHp kgFX82uzaijfOUJFspcl+r2N+Mx3I XzJt9MH1fGU2x+5Xjxk5RwAa9i20997-45-45G86:42:00 [facility] ([facility])Infect Disease Consult NoteREPORT#:[id number] REPORT STATUS: SignedDATE:11/22/22 TIME:1042 PATIENT: DAVID BELLO UNIT #: [id number]#: [id number] [address] [birth year] AGE: 42 SEX: F ATTEND: Glen Nava [facility] AUTHOR: Paul Garrett MD * ALL edits or amendments must be made on the electronic/computer document * See AddendumHistory of Present IllnessChief complaint:SepsisHPI:42-year-old female with h/o CKD stage II, hypertension, diabetes, pericardial effusion s/p pericardiocentesis and large right stone in the distal pole of right kidney, who came with worsening right severe flank pain associated with vomiting and fever. She was admitted on 11/01/22 for obstructive uropathy from a right kidney stone. Urine and blood cxs showed ESBL E. coli. History - Adult longitudinalPast medical history:Reports: Diabetes mellitus, Hypertension, Kidney disease/stones. Additional medical history:Hypertension, diabetes, CKD stage IIPast surgical history:Reports: Thyroidectomy. Additional surgical history:reviewed. Kidney stone resetion.Family history:Reports: Hypertension. Additional family history:Mother with kidney stonesAlcohol use: Denies EtOH useDrug use: Denies recreational drugsSmoking status for patients 13 years old or older: Never SmokerAllergies:Coded Allergies:sumatriptan (From IMITREX) (ITCHY 08/30/21) Review of SystemsConstitutional:Reports: chills, malaise. Skin:Denies: rash. Allergy/Immun:Denies hivesEyes:Denies dischargeENT:Denies: sore throat. Respiratory:Denies: productive cough (sputum). Cardiovascular:Denies: chest pain. GI:Reports: nausea. :Reports: flank pain. Musculoskeletal:Denies: joint swelling. Neuro:Denies: headache. Objective GeneralVS/I O:Vital SignsDate Temp Pulse Resp B/P B/P Mean Pulse Ox GhX247/30-11/22 36.3-37.1 64-104 14-34 108-140/64-84 83.1-91.0 89-100 Last Documented: Result Date Time Pulse Ox 93 11/22 0716 B/P 118/69 11/22 0716 B/P Mean 85.2 11/22 0716 O2 Delivery Room air 11/22 0716 Temp 36.5 11/22 0716 Pulse 64 11/22 0716 Resp 14 11/22 0716 O2 Flow Rate 2 11/22 1999 Vital Signs: Date Time Temp Pulse Resp B/P B/P Pulse O2 O2 Flow FiO2 Mean Ox Delivery Rate 11/22 0716 36.5 64 14 118/69 85.2 93 Room air 11/21 2306 36.5 79 18 108/73 84.4 98 11/21 2014 37.1 104 17 112/69 83.1 89 11/22 1999 2 11/21 1844 36.6 96 18 132/70 99 Room air 11/21 1830 36.6 95 31 139/76 100 Room air 11/21 1829 Simple 6 mask 11/21 1825 97 33 138/64 96 Simple 4 mask 11/21 1820 96 32 137/68 11/21 1815 99 34 140/72 11/21 1810 36.3 97 31 130/67 99 Simple 6 mask 11/21 1728 36.3 82 18 132/84 100 Room air 11/21 1623 36.8 74 15 115/79 91.0 95 Room air 11/21 1130 37.1 83 15 109/71 83.4 93 Room air 24 hour I O ending at 0700: 11/22 0700 11/21 1900 Intake Total 400 Output Total Balance 400 Intake, Oral 400 Number Voids 3 PATIENT WEIGHT: Weight (lb): Weight (oz): Weight (kg): 100.000 Physical ExamGeneral appearance: alert, awake, oriented, mental status normal, no respiratorydistressHead/Eyes: atraumatic, clear cornea, EOMI, normal conjunctiva/sclera, normal eyelids/periorb, normocephalicENT: moist mucosal membranes, normal noseNeck: full range of motion, non-tender, supple/no meningismusCardiovascular: regular rate rhythmRespiratory: symmetric expansion, no distressAbdomen: non-tender, normal bowel sounds, soft, no distention, no guarding, no reboundGenitourinary: flank painExtremities: no clubbing, no cyanosisMusculoskeletal: no joint swellingNeuro/EARLY HEAD START TEACHER: alert, oriented X 3, CNII-XII intact, normal speechSkin: normal turgor, no rashPsychiatry: normal affect, normal judgment/insight, normal mood Diagnosis, Assessment Plan Free Text DxA P NotesFree text DxA P notes:Laboratory Tests 11/21/22 0820:[Embedded Image Not Available] 11/20/22 1325:[Embedded Image Not Available] Imaging:Retrop US reviewed 11/20 Assessment:1. Sepsis with ESBL E. coli bacteremia.2. Acute pyelonephritis due to ESBL E. coli.3. SHER on CKD stage 2.4. Right kidney stone with right hydronephrosis s/p ureteral stent placement 11/21/22. Plan:1. Switch Zosyn to meropenem.2. No oral options to treat as bacterium is resistant to Bactrim and ciprofloxacin.3. Duration: probably 10 days starting from ureteral stent placement.4. Can place midline once blood cxs are neg for at least 24 h.5. Monitor CBC.6. Monitor kidney function.7. Urology following.8. Plan discussed with pt, who agreed. Tahnk you for this consult. at 1401 Addendum 1: 11/23/22 1229 by Paul Garrett MD CM consulted to arrange home IV abx (ertapenem). End date: 12/04/22. at 1229 [facility] #: [id number] OF REPORT VGGlvsyjboyerh8217-96-84Y24:42:00L.[id number] 093AVAvailable for patient lubpHGSOZTSQFWCQAD8469-24-58O09:01:33 [facility] 2022-11-22 09:47:00 [id number] vAxPK71rcySPmIEVScRLYCPps7PKx f5XVtDin1vry3yvBriWDsc6iWUj2233-15-24G68:47:00 [facility] HospitalHospitalist Progress NoteREPORT#:[id number] REPORT STATUS: SignedDATE:11/22/22 TIME:0947 PATIENT: DAVID BELLO HQLONNIE Hernandez UNIT #: [id number]#: [id number] [address] [birth year] AGE: 42 SEX: F ATTEND: Glen Nava [facility] AUTHOR: Glen Nava MD * ALL edits or amendments must be made on the electronic/computer document * SubjectiveChief complaint:AfebrileDenies any chest painFlank pain betterHPI:42-year-old female with history of stage II CKD, hypertension, diabetes, pericardial effusion status post pericardiocentesis and large right 1.8 mm stonein the distal pole of right kidney came in with right flank pain. She was recently admitted on 11/01 for obstructive uropathy from a 1.8 mm right kidney stone. Urine grew out ESBL bacteria. The plan per the urology note was for outpatient follow-up for ultrasound and possible lithotripsy versus stent after the infection cleared. The patient return to the ED because of persistent pain.She reports intractable right flank pain radiating to the right mid abdomen associated with nausea and nonbloody nonbilious emesis. She reports objective fever, chills and extreme diaphoresis. Objective GeneralVS/I O:Vital Signs: Date Time Temp Pulse Resp B/P B/P Pulse O2 O2 Flow FiO2 Mean Ox Delivery Rate 11/22 0616 97.7 64 14 118/69 85.2 93 Room air 11/21 2306 97.7 79 18 108/73 84.4 98 11/21 2015 98.8 104 17 112/69 83.1 89 11/21 2000 2 11/21 1844 97.8 96 18 132/70 99 Room air 11/21 1830 97.8 95 31 139/76 100 Room air 11/21 1829 Simple 6 mask 11/21 1825 97 33 138/64 96 Simple 4 mask 11/21 1820 96 32 137/68 11/21 1815 99 34 140/72 11/21 1810 97.4 97 31 130/67 99 Simple 6 mask 11/21 1728 97.4 82 18 132/84 100 Room air 11/21 1623 98.2 74 15 115/79 91.0 95 Room air 11/21 1130 98.8 83 15 109/71 83.4 93 Room air 24 hour I O ending at 0700: 11/22 0700 11/21 1900 Intake Total 400 Output Total Balance 400 Intake, Oral 400 Number Voids 3 PATIENT WEIGHT: Weight (lb): Weight (oz): Weight (kg): 100.000 Medications:Active Meds + DC'd Last 24 HrsMeropenem (MERREM) 500 MG Q8HR IV (UNV) Sterile Water (WATER FOR INJECTION) 10 MLDocusate Sodium (COLACE) 100 MG BID PO Pregabalin (LYRICA) 75 MG BID PO Losartan Potassium (COZAAR) 25 MG DAILY 1800 PO Ephedrine Sulfate (ePHEDrine sulfate) 0 .STK-MED ONE .ROUTE (DC) Acetaminophen (TYLENOL EXTRA STRENGTH) 1,000 MG Q6H PO (DC) Hydrocodone Bitart/Acetaminophen (NORCO 5/325) 1 TAB PACU ONCE PRN PO (DC) Hydrocodone Bitart/Acetaminophen (NORCO 10/325) 1 TAB PACU ONCE PRN PO (DC) Hydromorphone HCl (DILAUDID) 0.5 MG PACU Q10MIN PRN PRN IV (DC) Insulin Human Lispro (HUMALOG) 0 PACU ONCE PRN SUBQ (DC) Labetalol HCl (TRANDATE) 5 MG PACU Q10MIN PRN PRN IV (DC) Lactated Ringer's (LACTATED RINGERS) 1,000 ML ASDIR IV (DC) Meperidine HCl (DEMEROL) 12.5 MG PACU ONCE PRN IV (DC) Ondansetron HCl (ZOFRAN) 4 MG PACU ONCE PRN IV (DC) Ondansetron HCl (ZOFRAN) 8 MG Q8H PRN PRN PO Ondansetron HCl (ZOFRAN) 8 MG Q8H PRN PRN IV Scopolamine HBr (TRANSDERM-SCOP) 1.5 MG PREOP ASDIR TRANSDERM (CKD) Scopolamine HBr (TRANSDERM-SCOP) 0 .STK-MED ONE .ROUTE (DC) Iopamidol (Isovue-300) 0 .STK-MED ONE .ROUTE (DC) Dexamethasone Sodium Phosphate (DECADRON) 0 .STK-MED ONE .ROUTE (DC) Fentanyl Citrate (SUBLIMAZE) 0 .STK-MED ONE .ROUTE (DC) Lidocaine HCl (XYLOCAINE) 0 .STK-MED ONE .ROUTE (DC) Midazolam HCl (VERSED) 0 .STK-MED ONE .ROUTE (DC) Ondansetron HCl (ZOFRAN) 0 .STK-MED ONE .ROUTE (DC) Propofol (DIPRIVAN) 20 ML .STK-MED ONE IV (DC) Acetaminophen (TYLENOL EXTRA STRENGTH) 1,000 MG PREOP ONCE PO (CKD) Celecoxib (CeleBREX) 200 MG PREOP ONCE PO (CKD) Gabapentin (NEURONTIN) 200 MG PREOP ONCE PO (CKD) Dextrose/Water (DEXTROSE 10% IN WATER 250 ML) 250 ML ASDIR IV Glucagon (GLUCAGON) 1 MG ASDIR PRN IM Piperacillin Sod/Tazobactam Sod (ZOSYN) 3.375 GM Q8H IV (DCr) Sodium Chloride (SODIUM CHLORIDE 0.9%) 100 MLLevothyroxine Sodium (SYNTHROID) 125 MCG AC BK PO Hydromorphone HCl (DILAUDID) 0.2 MG Q6H PRN PRN IV Acetaminophen (TYLENOL) 650 MG Q4H PRN PRN PO Insulin Human Lispro (HUMALOG) 0 AC HS SUBQ (DC) Morphine Sulfate (morphine SULFATE) 4 MG Q4H PRN IV Ondansetron HCl (ZOFRAN) 4 MG Q4H PRN PRN IV (DC) Sodium Chloride (0.9% Sodium Chloride) 1,000 ML .Q10H IV (DC) Dietitian nutrition assessmentThe data set between the solid lines has been imported from the dietitian's assessment. BMI Calculated: 36.7Nutrition related diagnosis: Nutrition diagnosis details: Nutrition problem: Nutrition etiology: Nutrition signs and symptoms: Nutrition prescription: Dietitian name: Assessment completed: ResultsFindings/Data:Laboratory Tests 11/21 11/21 1621 1129 Chemistry POC Glucose (70 - 110 mg/dL) 114 H 151 H Laboratory Tests 11/21 1623 Serology SARS-CoV-2 Ag (Rapid) (Negative) NEGATIVE Laboratory Tests 11/21 1701 Urines Urine HCG, Qual (NEGATIVE) NEGATIVE Radiology data:Recent Impressions:RADIOLOGY - XR FLUOROSCOPY 0-60 MIN 11/21 1824 Report Impression - Status: SIGNED Entered: 11/21/2022 5296 IMPRESSION: Fluoroscopic guidance as above.Impression By: [email or web address] Luisa Boyle M.D. Free Text Obj NotesFree Text Obj Notes:Physical ExamGeneral appearance: alert, awake, orientedHEENT : normocephalic ,AtraumaticEyes: Eyes normal inspection.ENT: Dry mucous membranes present.Neck: Normal inspection. Neck supple.CVS: Normal heart rate and rhythm. Heart sounds normal.Respiratory: No respiratory distress. Breath sounds normal.Abdomen: Soft and nontender.Genitourinary: no bladder distentionBack: Normal inspection.Skin: Skin warm. Normal skin color. No rash.Extremities: No lower extremity edema.Neuro: Oriented X 3. No motor deficitNo generalized lymph adenopathyPsych normal affect Diagnosis, Assessment Plan Free Text DxA P NotesFree text DxA P notes:UTI with ESBLAntibiotics changed to meropenemWe will consult ID Sepsis with positive blood cultures and urine culture with ESBLBlood culture still pendingMonitor closelyIV hydrationAntibiotics continued HydronephrosisNephrolithiasisAppreciate help from urologyStatus post cystoscopy and stent placementPain control Acute kidney injury on CKD stage IIIV hydrationRenal parameters monitoredNephrology consult appreciated HypertensionContinue home medications and titrate as needed DiabetesInsulin sliding scaleWe will get an A1c in a.m. DehydrationHyponatremiaIV fluids Hypomagnesemia We will replace electrolytes GI/DVT prophylaxisAdvanced directive full code at 1117 [facility] #: [id number] OF REPORT PRProgress ckhu5695-04-18O30:47:00L.[id number] able for patient uilfFVONWPTNQWHWBC1539-52-74R00:17:48 [facility] 2022-11-21 23:10:00 [id number] rQbXjcCTSq6G4cCP3CTCxKGND2kBf 2EQSMTHk9U9nWdORj3Wz4HLfrSU0830-13-47H44:10:36830 1-0001 [facility] [id number] [place] [id number] PATIENT NAME: DAVID BELLO HQIRRO N ADMIT DATE: 11/20/22ACCOUNT NO: [id number] ROOM NO: PO6 AGE: 42 REPORT TYPE: OPERATIVE REPORT SEX: F ADMITTING PHYSICIAN: Glen Nava MD ATTENDING PHYSICIAN: Glen Nava MD OPERATION DATE: 11/21/2022 ATTENDING SURGEON: Brett Rodriguez MD TERMINAL SYSTEM OPERATOR:None PREOPERATIVE DIAGNOSIS: Infected obstructed right mid renal calculus. POSTOPERATIVE DIAGNOSIS: Infected obstructed right mid renal calculus. PROCEDURES PERFORMED:1. Cystoscopy.2. Right retrograde pyelogram with interpretation.3. Right ureteral stent placement. FINDINGS:1. Moderate bladder cystitis.2. Moderate right hydronephrosis with a pyonephrosis. ANESTHESIA: SPECIMEN OBTAINED: None. DRAINS PLACED: A 6 x 24 bb stent. INDICATIONS FOR PROCEDURE: Mrs. Bello is a 42-year-old female who previouslyhad a nonobstructing right renal calculus with pyelonephritis. She continued to have symptoms of UTI after treatment, come up with right-sided flank pain. She has had fevers and leukocytosis. Imaging shows development of righthydronephrosis, presumably due to migration of the stone from lower pole into the dependent renal pelvis. I counseled the patient for an emergent ureteral stent placement. I discussed that this is not a treatment for the stone, shewill require another procedure to address the stone after the infection has been cleared, she presents for this now. PROCEDURE IN DETAIL: The patient was brought to the OR on 11/21/2022, thepatient had anesthesia inducted without any complication. She was placed into adorsal lithotomy position and genitalia was prepped and draped in the usualstandard sterile manner. At this point, I inserted a 22-Frenchcystourethroscope into the bladder. I performed examination of bladder, therewas moderate cystitis. No masses or tumors. I identified the right ureteralorifice in normal orthotopic position. I cannulated with a 6-Malagasy open-ended PATIENT NAME: DAVID BELLO HQLONNIE Hernandez ureteral catheter and performed a retrograde pyelogram. This showed moderatehydroureteronephrosis, there was a radiopaque stone seen on analyst microbiology lab imaging. Ithen advanced a wire into the renal pelvis and advanced a ] ureteral stent overthe wire, confirmed to be in good position proximally and distally. This marked completion of procedure, bladder was drained. The patient toleratedthe procedure well. There were no complications. Dictated By: Brett Rodriguez MD Date Dictated: 11/21/2022 23:10:37Date Transcribed: 11/21/2022 23:41:41Obed/SANDRA/Sandie #: [id number] ID: [id number] and Edited by Brett Rodriguez MD On 11/22/22 11:31:41 PM at 1133 PATIENT NAME: DAVID BELLO HQMOJGANO N [id number]:41:00L.[id number] lable for patient polsECTZIIPOBVGQIR3704-01-37O58:34:14 [facility] 2022-11-21 18:05:00 [id number] jTlfX4sIG5jhVlyAMs6YM5vzNtSGI z06JhrQm19b8HeQeFNFkJkbs26F4003-43-16H64:05:00 [facility] HospitalBrief Op NoteREPORT#:[id number] REPORT STATUS: SignedDATE:11/21/22 TIME:1805 PATIENT: DAVID BELLO UNIT #: [id number]#: [id number] [address] [birth year] AGE: 42 SEX: F ATTEND: Glen Nava [facility] AUTHOR: Brett Rodriguez MD * ALL edits or amendments must be made on the electronic/computer document * Op/Inv Proc Note - BriefPre-procedure diagnosis:infected, obstructing right renal calculiPost-procedure diagnosis: same as pre procedure dxProcedures performed:cystoscopy, right retro/stent placementPrimary Surgeon:Caroleistant(s): noneFindings:moderate right hydronephrosis 1.5 renal pelvic stonepyonephrosisComplications: noneEstimated blood loss in ml's: noneSpecimens removed/altered: noneDrain(s): 6x26 bb stent at 1806 RPT #: [id number] OF REPORT OPOperative ovptky3629-80-18R88:05:00L.[id number] ilable for patient hvqkCRPUHQIGYJGPSN1687-45-16B62:07:15 [facility] 2022-11-21 17:08:00 [id number] Tzgttxg1WxuabWcokUdsRHiAqWFKv gS80YwIpu9kUpblsQxREsuu4Pru5676-76-04S05:08:46559 0-0023 [facility] [id number] [place] [id number] PATIENT NAME: DAVID BELLO HQIRRO N ADMIT DATE: 11/20/22ACCOUNT NO: [id number] ROOM NO: [facility] AGE: 42 REPORT TYPE: CONSULTATION SEX: F ADMITTING PHYSICIAN: Glen Nava MD ATTENDING PHYSICIAN: Glen Nava MD CONSULTATION DATE: 11/21/2022 CONSULTING PHYSICIAN: Brett Rodriguez MD REQUESTING PHYSICIAN: Glen Naav MD REASON FOR CONSULTATION REQUEST: Infected kidney stone. HISTORY OF PRESENT ILLNESS: Ms. Bello is a 42-year-old female who I saw her in the hospital several weeks ago. At that time, she presented with nonobstructing lower pole stone in the right kidney. She came in with secondarysymptoms suggestive of pyelonephritis. She was found to have ESBL E. coli, treated and discharged on antibiotics. The patient saw me in the clinic with plans for management of the lower pole stone. However, she continued to have some persistent pain, malaise and then developed fevers and chills. She came tothe ER, a renal ultrasound shows development of moderate hydronephrosis and the stone is likely moved. She is also found to have leukocytosis, fevers. REVIEW OF SYSTEMS: Positive for fevers and chills. Positive for nausea and vomiting. No chest pain or shortness of breath. No dysuria, no gross hematuria. Otherwise, negative 10-point review of symptoms. PAST MEDICAL HISTORY:1. Hypertension.2. Diabetes.3. Chronic renal insufficiency.4. Urolithiasis PAST SURGICAL HISTORY: Kidney stone, ureteroscopy. SOCIAL HISTORY: Negative x3. FAMILY HISTORY: Noncontributory. PHYSICAL EXAMINATION:VITAL SIGNS: T-max of 102.7, T-current is 98.2, pulse is 74, blood pressure is 115/79.GENERAL: The patient is not in acute distress, alert, awake, oriented.HEENT: Atraumatic, normocephalic. EOMI.NECK: Supple. Trachea is midline.LUNGS: Normal respiratory effort, nonlabored breathing.ABDOMEN: Soft. No rebound or guarding. PATIENT NAME: DAVID BELLO N BACK: No CVA tenderness.EXTREMITIES: No clubbing, cyanosis or edema. LABORATORY DATA: White count of 15.6, hemoglobin count of 9.6. Creatinine of 2with a BUN of 17. Her urinalysis shows 2+ blood, negative leukocyte esterase, occasional bacteria. PERTINENT IMAGING: Renal ultrasound shows iyzc-vd-hqeyxvdr right hydronephrosis, 1.6 cm stone noted in the right renal pelvis. ASSESSMENT AND PLAN: The patient with right renal calculus. It appears to havemoved from the lower pole where it was nonobstructing and into the renal pelvis where it is now obstructing. Additionally, she has signs and symptoms concerning for impending urosepsis, including leukocytosis, fevers. I recommended emergent decompression with ureteral stent. I discussed with the patient that this is not treatment for the stone, which I cannot do in the active setting of urine infection. The patient is currently on broad-spectrum antibiotics of Zosyn, vancomycin. Urine culture is growing Gram-negative rods. The patient is being brought to the OR now for emergent ureteral stent placement. Dictated By: Brett Rodriguez MD Date Dictated: 11/21/2022 17:08:40Date Transcribed: 11/21/2022 17:53:55[facility]/JAE/RSHJob #: [id number] ID: [id number] by Brett Rodriguez MD On 11/22/2022 11:31:56 PM at 1131 PATIENT NAME: DAVID BELLO HQLONNIE N :53:00L.ME [id number] for patient beteQZGVESEOZORWZP7867-82-12W88:32:34 [facility] 2022-11-21 15:07:00 [id number]/usSVtp X6GTngtZII2Uv2SOvz+P1wQuEHG/1 /YaG7ox06Tfw+TBECEvISWJXvQL4754-66-14L86:07:00 [facility] HospitalNephrology Progress NoteREPORT#:[id number] REPORT STATUS: SignedDATE:11/21/22 TIME:1507 PATIENT: DAVID BELLO UNIT #: [id number]#: [id number] [facility] AGE: 42 SEX: F ATTEND: Glen Nava [facility] AUTHOR: Arash Rivera MD * ALL edits or amendments must be made on the electronic/computer document * SubjectiveHPI:42 yo female with history of HTN, DM, previou episodes of UTI, hypothyrodism, kidney stones, pericardial effusion, s/p pericardiocenthesis, presented to ER c/o fever and nausea. pateint was recently treated for complicated UTI. Readmitted with fever, weakness and vomiting. Patient fount to have worsening SHER and UTI.Patient has hitory of kidney stone, s/p resection; and CKD stage 2 to 3. Renal is consulted for evaluation of renal failure. Comments:Denies sob. Review of Systems Free Text ROS NotesFree Text ROS Notes:10 points ROS performed and documented in subjective, otherwise negative. Objective GeneralVS/I O:Vital Signs: Date Time Temp Pulse Resp B/P B/P Pulse O2 O2 Flow FiO2 Mean Ox Delivery Rate 11/21 1130 37.1 83 15 109/71 83.4 93 Room air 11/21 0712 39.3 132 15 103/65 77.7 90 Room air 11/21 0420 39.0 131 18 100/55 69.9 94 11/21 0349 38.1 132 17 101/61 74.2 86 11/21 0205 38.0 130 17 100/58 72.0 86 11/21 0001 37.7 95 18 154/80 104.5 93 11/20 2042 37.0 87 20 150/79 102.7 95 11/20 1827 37.1 83 18 111/71 84.4 96 11/20 1522 100 14 103/69 80.2 95 11/20 1519 37.7 101 18 85/51 62.5 96 24 hour I O ending at 0700: 11/21 0700 11/20 1900 Intake Total 500 Output Total Balance 500 Intake, Oral 500 Number Voids 3 Patient 100 kg Weight Weight Stated/Reported Measurement Method MedicationsActive Meds + DC'd Last 24 HrsLosartan Potassium (COZAAR) 25 MG DAILY 1800 PO Dextrose/Water (DEXTROSE 10% IN WATER 250 ML) 250 ML ASDIR IV Glucagon (GLUCAGON) 1 MG ASDIR PRN IM Piperacillin Sod/Tazobactam Sod (ZOSYN) 3.375 GM Q8H IV Sodium Chloride (SODIUM CHLORIDE 0.9%) 100 MLLevothyroxine Sodium (SYNTHROID) 125 MCG AC BK PO Hydromorphone HCl (DILAUDID) 0.2 MG Q6H PRN PRN IV Sodium Chloride (0.9% Sodium Chloride) 1,000 ML BOLUS IV (DC) Vancomycin HCl (Vancomycin HCl) 1,250 MG ONCE ONE IV (DC) Sodium Chloride (0.9% Sodium Chloride) 250 MLAcetaminophen (TYLENOL) 650 MG Q4H PRN PRN PO Sodium Chloride (0.9% Sodium Chloride) 1,000 ML BOLUS IV (DC) Piperacillin Sod/Tazobactam Sod (ZOSYN) 3.375 GM Q8HR IV (DC) Sodium Chloride (SODIUM CHLORIDE 0.9%) 100 MLInsulin Human Lispro (HUMALOG) 0 AC HS SUBQ (DC) Morphine Sulfate (morphine SULFATE) 4 MG Q4H PRN IV Ondansetron HCl (ZOFRAN) 4 MG Q4H PRN PRN IV Sodium Chloride (0.9% Sodium Chloride) 1,000 ML .Q10H IV (DC) Physical ExamGeneral appearance: awakeHead/eyes: normocephalicENT: normal noseNeck: no JVD C-Spine clearance: no midline tendernessCardiovascular: no murmurRespiratory: no distressAbdomen: non-tender, softGenitourinary: no bladder distentionExtremities: no edemaMusculoskeletal: no tenderenessNeuro/EARLY HEAD START TEACHER: alert, oriented X 3 ResultsFindings/Data:Laboratory Tests 11/21 11/21 11/21 11/21 11/21 1129 0820 0820 0711 0442 Chemistry Sodium (134 - 147 mmol/L) 133 L 134 Potassium (3.4 - 5.0 mmol/L) 4.1 3.8 Chloride (100 - 108 mmol/L) 101 99 L Carbon Dioxide (21 - 32 mmol/L) 26 28 Anion Gap (4.0 - 15.0 GAP calc) 6.0 7.0 BUN (7 - 18 MG/DL) 17 17 Creatinine (0.6 - 1.0 MG/DL) 2.0 H 2.2 H Glomerular Filtr Rate (>60 estGFR) 31 L 28 L Glucose (70 - 110 MG/DL) 112 H 123 H POC Glucose (70 - 110 mg/dL) 151 H 98 Lactic Acid (0.4 - 2.0 mmol/L) 1.3 Calcium (8.5 - 10.1 MG/DL) 7.4 L 7.6 L Magnesium (1.8 - 2.4 MG/DL) 1.6 L Total Bilirubin (0.2 - 1.2 MG/DL) 1.20 AST (15 - 37 Unit/L) 42 H ALT (12 - 78 Unit/L) 45 Total Alk Phosphatase (45 - 117 Unit/L) 162 H Total Protein (6.4 - 8.2 G/DL) 7.0 Albumin (3.4 - 5.0 G/DL) 2.1 L Globulin (GM/dL) 4.9 Albumin/Globulin Ratio (1.2 - 2.2 RATIO) 0.4 L 11/20 11/20 11/20 11/20 2104 2004 1834 1512 Chemistry POC Glucose (70 - 110 mg/dL) 155 H 156 H Lactic Acid (0.4 - 2.0 mmol/L) 1.2 2.2 H Laboratory Tests 11/21 0820 Coagulation INR (0.8 - 1.2 INR Unit) 1.32 H PTT ([place]) (26 - 35 SECONDS) 30.9 PT Patient/Control Mix (9.3 - 12.9 SECONDS) 14.7 H Fibrinogen (185 - 453 mg/dL) 842 H Laboratory Tests 11/21 11/21 0820 0442 Hematology WBC (3.5 - 11.0 K/mm3) 15.6 H 8.6 RBC (4.70 - 6.10 M/mm3) 3.83 L 4.03 L Hgb (10.4 - 14.9 G/DL) 9.6 L 10.1 L Hct (31.5 - 44.1 %) 30.5 L 32.2 MCV (84.5 - 98.6 Fl) 79.6 L 79.9 L MCH (27.0 - 34.2 pg) 25.1 L 25.1 L MCHC (31.5 - 34.0 G/DL) 31.5 31.4 L RDW (11.5 - 14.5 SD) 14.6 H 14.4 Plt Count (150 - 450 K/mm3) 273 275 MPV (7.0 - 10.5 fL) 10.10 10.50 Add Manual Diff (CRITERIA DIFF/SCN) YES YES Seg Neutrophils % (40 - 75 %) 89 H 69 Band Neutrophils % (0 - 8 %) 5 21 H Lymphocytes % (Manual) (18.7 - 40.6 %) 2 L 4 L Monocytes % (Manual) (3.8 - 11.4 %) 4 1 L Eosinophils % (Manual) (0.0 - 4.1 %) 1 Basophils % (Manual) (0.0 - 2.1 %) 2 Metamyelocytes (0 - 2 %) 2 Platelet Estimate (ADEQUATE THOUSAND) ADEQUATE ADEQUATE Plt Morphology Comment NORMAL OCC LARGE PLATELET Hypochromasia (NONE ON SCAN) 1+ TRACE Poikilocytosis (NONE ON SCAN) 1+ Anisocytosis (NONE) 1+ Microcytosis (NONE ON SCAN) 1+ Target Cells (NONE ON SCAN) TRACE Ovalocytes (NONE ON SCAN) TRACE Laboratory Tests 11/21 1048 Urines Urine Color (YEL/STRAW discript) YELLOW Urine Appearance (CLEAR discript) CLEAR Urine pH (5.0 - 7.0 pH UNITS) 6.0 Ur Specific [place] (1.005 - 1.030 SG) <=1.005 Urine Protein (NEG mg/dL) 1+ H Urine Glucose (UA) (NEG mg/dL) NEGATIVE Urine Ketones (NEG mg/dL) TRACE Urine Blood (NEG mg/DL) 2+ H Urine Nitrite (NEG SCREEN) NEGATIVE Urine Bilirubin (NEG mg/dL) NEGATIVE Urine Urobilinogen (<2.0 mg/dL) 4.0 H Ur Leukocyte Esterase (NEGATIVE Leuk/mcL) NEGATIVE Urine RBC (0 - 3 #RBC/HPF) 0-1 Urine WBC (0 - 3 #WBC/HPF) 1-3 Ur Squamous Epith Cells (NONE /HPF) TRACE Urine Bacteria (NONE - TRACE /HPF) OCCASIONAL Urine Culture Screen (Culture CHK Criteria) NO, WBC<10 Microbiology Date/Time Procedure - Status Source Growth 11/20 1958 MRSA Screen - COMP NASAL Radiology data:Recent Impressions:ULTRASOUND - US RETROPERITONEAL COM 11/20 1623 Report Impression - Status: SIGNED Entered: 11/20/2022 1644 IMPRESSION: Mild to moderate right-sided hydronephrosis. 1.6 cm kidney stone notedin the right renal pelvis.Impression By: MckaylaJW22 Luisa Nath D.O. Diagnosis, Assessment PlanFree Text A P:1. SHER on CKD stage 2 to 3. Etiology likely ATN creat 2.0 from 2.22. Hyponatremialikely hypovolemic hyponatremia. 3. UTI. 4. Right kidney stone / mild to mderate hydronephrosis. 5. HTN. 6. DM. 7. Hypovolemia. Recommendations11/21: Continue IV fluids. Avoid NSAID. 11/20: NS 100 ml/hour. Avoid NSAID Urine studies. Drug dose adjustment to GFR. Thank you for the consultation, any question please call [phone]. at 1508 RPT #: [id number] OF REPORT PRProgress zhxq3423-78-37L63:07:00L.[id number] able for patient lpluCHYMOUJXFBTEGI9733-05-49X85:08:30 [facility] 2022-11-21 10:54:00 [id number] raslPoI8Hm4b9ozFb0gxnJvobxKvE smTn6rYWQY2qEwIkRBtKk6gUGTb8979-02-32A69:54:00 [facility] ([facility])Hospitalist Progress NoteREPORT#:[id number] REPORT STATUS: SignedDATE:11/21/22 TIME:1054 PATIENT: DAVID BELLO HQIRRO N UNIT #: [id number]#: [id number] [facility] [birth year] AGE: 42 SEX: F ATTEND: Glen Nava AUTHOR: Glen Nava MD * ALL edits or amendments must be made on the electronic/computer document * SubjectiveChief complaint:Abdominal PainHPI:42-year-old female with history of stage II CKD, hypertension, diabetes, pericardial effusion status post pericardiocentesis and large right 1.8 mm stonein the distal pole of right kidney came in with right flank pain. She was recently admitted on 11/01 for obstructive uropathy from a 1.8 mm right kidney stone. Urine grew out ESBL bacteria. The plan per the urology note was for outpatient follow-up for ultrasound and possible lithotripsy versus stent after the infection cleared. The patient return to the ED because of persistent pain.She reports intractable right flank pain radiating to the right mid abdomen associated with nausea and nonbloody nonbilious emesis. She reports objective fever, chills and extreme diaphoresis. Objective GeneralVS/I O:Vital Signs: Date Time Temp Pulse Resp B/P B/P Pulse O2 O2 Flow FiO2 Mean Ox Delivery Rate 11/21 1130 98.8 83 15 109/71 83.4 93 Room air 11/21 0712 102.7 132 15 103/65 77.7 90 Room air 11/21 0420 102.2 131 18 100/55 69.9 94 11/21 0349 100.6 132 17 101/61 74.2 86 11/21 0205 100.4 130 17 100/58 72.0 86 11/21 0001 99.9 95 18 154/80 104.5 93 11/20 2042 98.6 87 20 150/79 102.7 95 11/20 1827 98.8 83 18 111/71 84.4 96 11/20 1522 100 14 103/69 80.2 95 11/20 1519 99.9 101 18 85/51 62.5 96 11/20 1400 100.0 108 22 24 hour I O ending at 0700: 11/21 0700 11/20 1900 Intake Total 500 Output Total Balance 500 Intake, Oral 500 Number Voids 3 Patient 220 lb Weight Weight Stated/Reported Measurement Method PATIENT WEIGHT: Weight (lb): Weight (oz): Weight (kg): 100.000 Medications:Active Meds + DC'd Last 24 HrsLosartan Potassium (COZAAR) 25 MG DAILY 1800 PO Dextrose/Water (DEXTROSE 10% IN WATER 250 ML) 250 ML ASDIR IV Glucagon (GLUCAGON) 1 MG ASDIR PRN IM Piperacillin Sod/Tazobactam Sod (ZOSYN) 3.375 GM Q8H IV Sodium Chloride (SODIUM CHLORIDE 0.9%) 100 MLLevothyroxine Sodium (SYNTHROID) 125 MCG AC BK PO Hydromorphone HCl (DILAUDID) 0.2 MG Q6H PRN PRN IV Sodium Chloride (0.9% Sodium Chloride) 1,000 ML BOLUS IV (DC) Vancomycin HCl (Vancomycin HCl) 1,250 MG ONCE ONE IV (DC) Sodium Chloride (0.9% Sodium Chloride) 250 MLAcetaminophen (TYLENOL) 650 MG Q4H PRN PRN PO Sodium Chloride (0.9% Sodium Chloride) 1,000 ML BOLUS IV (DC) Piperacillin Sod/Tazobactam Sod (ZOSYN) 3.375 GM Q8HR IV (DC) Sodium Chloride (SODIUM CHLORIDE 0.9%) 100 MLInsulin Human Lispro (HUMALOG) 0 AC HS SUBQ Morphine Sulfate (morphine SULFATE) 4 MG Q4H PRN IV Ondansetron HCl (ZOFRAN) 4 MG Q4H PRN PRN IV Sodium Chloride (0.9% Sodium Chloride) 1,000 ML .Q10H IV Ampicillin Sodium/Sulbactam Sodium (UNASYN 3 GM) 3 GM X1ED STA IV (DC) Sodium Chloride (SODIUM CHLORIDE 0.9%) 100 MLSodium Chloride (0.9% Sodium Chloride) 1,000 ML X1ED STA IV (DC) Dietitian nutrition assessmentThe data set between the solid lines has been imported from the dietitian's assessment. BMI Calculated: 36.7Nutrition related diagnosis: Nutrition diagnosis details: Nutrition problem: Nutrition etiology: Nutrition signs and symptoms: Nutrition prescription: Dietitian name: Assessment completed: ResultsFindings/Data:Laboratory Tests 11/21/22 0820:[Embedded Image Not Available] 11/21/22 0442:[Embedded Image Not Available] 11/20/22 1325:[Embedded Image Not Available] 11/20/22 1324:[Embedded Image Not Available]Laboratory Tests 11/21 11/21 11/21 11/21 11/21 1129 0820 0820 0711 0442 Chemistry Sodium (134 - 147 mmol/L) 133 L 134 Potassium (3.4 - 5.0 mmol/L) 4.1 3.8 Chloride (100 - 108 mmol/L) 101 99 L Carbon Dioxide (21 - 32 mmol/L) 26 28 Anion Gap (4.0 - 15.0 GAP calc) 6.0 7.0 BUN (7 - 18 MG/DL) 17 17 Creatinine (0.6 - 1.0 MG/DL) 2.0 H 2.2 H Glomerular Filtr Rate (>60 estGFR) 31 L 28 L Glucose (70 - 110 MG/DL) 112 H 123 H POC Glucose (70 - 110 mg/dL) 151 H 98 Lactic Acid (0.4 - 2.0 mmol/L) 1.3 Calcium (8.5 - 10.1 MG/DL) 7.4 L 7.6 L Magnesium (1.8 - 2.4 MG/DL) 1.6 L Total Bilirubin (0.2 - 1.2 MG/DL) 1.20 AST (15 - 37 Unit/L) 42 H ALT (12 - 78 Unit/L) 45 Total Alk Phosphatase (45 - 117 Unit/L) 162 H Total Protein (6.4 - 8.2 G/DL) 7.0 Albumin (3.4 - 5.0 G/DL) 2.1 L Globulin (GM/dL) 4.9 Albumin/Globulin Ratio (1.2 - 2.2 RATIO) 0.4 L 11/20 1512 Chemistry POC Glucose (70 - 110 mg/dL) 155 H 156 H Lactic Acid (0.4 - 2.0 mmol/L) 1.2 2.2 H Laboratory Tests 11/22 819 Coagulation INR (0.8 - 1.2 INR Unit) 1.32 H PTT ([place]) (26 - 35 SECONDS) 30.9 PT Patient/Control Mix (9.3 - 12.9 SECONDS) 14.7 H Fibrinogen (185 - 453 mg/dL) 842 H Laboratory Tests 11/21 11/21 0820 0442 Hematology WBC (3.5 - 11.0 K/mm3) 15.6 H 8.6 RBC (4.70 - 6.10 M/mm3) 3.83 L 4.03 L Hgb (10.4 - 14.9 G/DL) 9.6 L 10.1 L Hct (31.5 - 44.1 %) 30.5 L 32.2 MCV (84.5 - 98.6 Fl) 79.6 L 79.9 L MCH (27.0 - 34.2 pg) 25.1 L 25.1 L MCHC (31.5 - 34.0 G/DL) 31.5 31.4 L RDW (11.5 - 14.5 SD) 14.6 H 14.4 Plt Count (150 - 450 K/mm3) 273 275 MPV (7.0 - 10.5 fL) 10.10 10.50 Add Manual Diff (CRITERIA DIFF/SCN) YES YES Seg Neutrophils % (40 - 75 %) 89 H 69 Band Neutrophils % (0 - 8 %) 5 21 H Lymphocytes % (Manual) (18.7 - 40.6 %) 2 L 4 L Monocytes % (Manual) (3.8 - 11.4 %) 4 1 L Eosinophils % (Manual) (0.0 - 4.1 %) 1 Basophils % (Manual) (0.0 - 2.1 %) 2 Metamyelocytes (0 - 2 %) 2 Platelet Estimate (ADEQUATE THOUSAND) ADEQUATE ADEQUATE Plt Morphology Comment NORMAL OCC LARGE PLATELET Hypochromasia (NONE ON SCAN) 1+ TRACE Poikilocytosis (NONE ON SCAN) 1+ Anisocytosis (NONE) 1+ Microcytosis (NONE ON SCAN) 1+ Target Cells (NONE ON SCAN) TRACE Ovalocytes (NONE ON SCAN) TRACE Laboratory Tests 11/21 1048 Urines Urine Color (YEL/STRAW discript) YELLOW Urine Appearance (CLEAR discript) CLEAR Urine pH (5.0 - 7.0 pH UNITS) 6.0 Ur Specific [place] (1.005 - 1.030 SG) <=1.005 Urine Protein (NEG mg/dL) 1+ H Urine Glucose (UA) (NEG mg/dL) NEGATIVE Urine Ketones (NEG mg/dL) TRACE Urine Blood (NEG mg/DL) 2+ H Urine Nitrite (NEG SCREEN) NEGATIVE Urine Bilirubin (NEG mg/dL) NEGATIVE Urine Urobilinogen (<2.0 mg/dL) 4.0 H Ur Leukocyte Esterase (NEGATIVE Leuk/mcL) NEGATIVE Urine RBC (0 - 3 #RBC/HPF) 0-1 Urine WBC (0 - 3 #WBC/HPF) 1-3 Ur Squamous Epith Cells (NONE /HPF) TRACE Urine Bacteria (NONE - TRACE /HPF) OCCASIONAL Urine Culture Screen (Culture CHK Criteria) NO, WBC<10 Microbiology Date/Time Procedure - Status Source Growth 11/20 1958 MRSA Screen - COMP NASAL Radiology data:Recent Impressions:ULTRASOUND - US RETROPERITONEAL COM 11/20 162 Report Impression - Status: SIGNED Entered: 11/20/2022 1644 IMPRESSION: Mild to moderate right-sided hydronephrosis. 1.6 cm kidney stone notedin the right renal pelvis.Impression By: [email or web address] - Ramin Nath D.O. Free Text Obj NotesFree Text Obj Notes:Physical ExamGeneral appearance: alert, awake, orientedHEENT : normocephalic ,AtraumaticEyes: Eyes normal inspection.ENT: Dry mucous membranes present.Neck: Normal inspection. Neck supple.CVS: Normal heart rate and rhythm. Heart sounds normal.Respiratory: No respiratory distress. Breath sounds normal.Abdomen: Soft and nontender.Genitourinary: no bladder distentionBack: Normal inspection.Skin: Skin warm. Normal skin color. No rash.Extremities: No lower extremity edema.Neuro: Oriented X 3. No motor deficitNo generalized lymph adenopathyPsych normal affect Diagnosis, Assessment Plan Free Text DxA P NotesFree text DxA P notes:UTIHydronephrosisNephrolithiasisAcute kidney injury on CKD stage IIHypertension,DiabetesDehydrationHyponatremia PlanIV fluidsStarted on IV antibioticsWaiting for culturesNephrology consultedUrology consult placedPain controlElectrolytes monitor and replace accordinglyHypomagnesemia notedWe will replace electrolytesGI/DVT prophylaxisAdvanced directive full code at 1330 RPT #: [id number] OF REPORT PRProgress axdw7695-57-76N86:54:00L.[id number] able for patient ewfmXBMXLOURTTFRMM7076-99-32M38:31:04 [facility] 2022-11-21 04:55:00 [id number] yV3Hvh/o50uVxDfiZtgSHuXDc+sg4 +poOJLVxYrZd2Xn4JvzOt2oINMp1465-06-33S62:55:00 [facility] ([facility])Critical Care Event NoteREPORT#:[id number] REPORT STATUS: SignedDATE:11/21/22 TIME:0455 PATIENT: DAVID BELLO HQLONNIE Hernandez UNIT #: [id number]#: [id number] [address] [birth year] AGE: 42 SEX: F ATTEND: Glen Nava MDA AUTHOR: Marialuisa Chowdhury * ALL edits or amendments must be made on the electronic/computer document * Critical Care Event Event NoteEvent type: Sepsis alertEvent details:Patient is s/p large right 1.8 mm stone in the distal pole of right kidney came in with right flank pain. She was recently admitted on 11/01 for obstructive uropathy from a 1.8 mm right kidney stone. Urine grew out ESBL bacteria. She is currently admitted for UTI, hydronephrosis. and nephrolithiasis Patient meets criteria for Sepsis defined as: Known or suspected infection with 2 or more signs of SIRS: Tacycardia with HR > 95 (131) and Temp rise to 102.2. Obtain lactic acid level Assessment: Sepsis secondary to suspected infection. (Time of Diagnosis:0420 am) Plan: - Code Sepsis has been initiated. - Lab, lactic acid level and cultures ordered. - Patient being treated with Zosyn, I will add Vancomycin; First dose of Vanco was given within first hour - IVF (1 L NS given); If lactic acid comes back> 4 and/or pt progresses to septic shock will vwa83ei/kg IVF required at 0947 at 1146 RPT #: [id number] OF REPORT PRProgress akaj8762-85-01J36:55:00L.[id number] able for patient rasdIXAQJHXRGLUPWF8765-74-66G35:47:25 [facility] 2022-11-20 20:05:00 [id number] QdLb2VBaPDQ6eqioCOrlmb/sN1gDf Txtsz1fglGL2KCOmG8fGwcsZ3n03017-61-92G21:05:00 [facility])Nephrology Consultation NoteREPORT#:[id number] REPORT STATUS: SignedDATE:11/20/22 TIME:2004 PATIENT: DAVID BELLO UNIT #: [id number]#: [id number] [address] [birth year] AGE: 42 SEX: F ATTEND: Glen Nava [facility] AUTHOR: Arash Rivera MD * ALL edits or amendments must be made on the electronic/computer document * History of Present IllnessReason for consult:akiPCP:PCP: Javi Cuadra MD HPI:42 yo female with history of HTN, DM, previou episodes of UTI, hypothyrodism, kidney stones, pericardial effusion, s/p pericardiocenthesis, presented to ER c/o fever and nausea. pateint was recently treated for complicated UTI. Readmitted with fever, weakness and vomiting. Patient fount to have worsening SHER and UTI.Patient has hitory of kidney stone, s/p resection; and CKD stage 2 to 3. Renal is consulted for evaluation of renal failure. History - Adult longitudinalPast medical history:Reports: Diabetes mellitus, Hypertension, Kidney disease/stones. Past surgical history:Reports: Thyroidectomy. Additional surgical history:reviewed. Kidney stone resetion.Additional family history:Mother with kidney stonesAlcohol use: Denies EtOH useDrug use: Denies recreational drugsSmoking status for patients 13 years old or older: Never SmokerMedications:Home Medications:Medication Dose/Rte/Freq Days Qty Entered Last Max Daily Dose Reviewed SEMAGLUTIDE 1 MG SUBQ Q7D 11/02/22 11/20/22 (OZEMPIC PEN (4 MG/3mL)) 0822 1748Strength: 1 MG/0.75 ML (4MG/3 ML) PEN.INJCTR LOSARTAN (COZAAR) 25 MG PO DAILY 1800 30 11/04/22 11/20/22Strength: 25 MG TAB 1350 1748 LEVOTHYROXINE 125 MCG PO 30 11/04/22 11/20/22 (SYNTHROID) DAILY 0700 1350 1749Strength: 125 MCG TAB HYDROcodone/APAP 1 TAB PO Q4H 12 11/07/22 11/20/22 (HYDROcodone/APAP 0923 1750 7.5/325)Strength: 7.5 MG-325 MGTAB Current Hospital Medications:Anti-Infective Agents Sig/Mona Start time Last Medication Dose Route Stop Time Status Admin Piperacillin Sod/ 3.375 GM Q8HR 11/20 2200 UNV Tazobactam Sod IV 12/04 2159 (ZOSYN) Sodium Chloride 100 ML (SODIUM CHLORIDE 0.9%) Ampicillin Sodium/ 3 GM X1ED STA 11/20 1325 DC 11/20 Sulbactam Sodium IV 11/20 1354 1350 (UNASYN 3 GM) Sodium Chloride 100 ML (SODIUM CHLORIDE 0.9%) Central Nervous System Agents Sig/Mona Start time Last Medication Dose Route Stop Time Status Admin Morphine Sulfate 4 MG Q4H PRN 11/20 1545 AC (morphine SULFATE) IV 11/23 1544 Morphine Sulfate 4 MG X1ED STA 11/20 1313 DC 11/20 (morphine SULFATE) IV 11/20 1314 1341 Electrolytic, Caloric, And Aba Sig/Mona Start time Last Medication Dose Route Stop Time Status Admin Sodium Chloride 1,000 ML .[id number] 11/20 1545 AC 11/20 (0.9% Sodium IV 11/21 1438 1834 Chloride) Sodium Chloride 1,000 ML X1ED STA 11/20 1313 DC 11/20 (0.9% Sodium IV 11/20 1412 1339 Chloride) Gastrointestinal Drugs Sig/Mona Start time Last Medication Dose Route Stop Time Status Admin Ondansetron HCl 4 MG Q4H PRN PRN 11/20 1545 AC (ZOFRAN) IV 12/20 1544 Ondansetron HCl 4 MG X1ED STA 11/20 1313 DC 11/20 (ZOFRAN) IV 11/20 1314 1341 Hormones And Synthetic Substit Sig/Mona Start time Last Medication Dose Route Stop Time Status Admin Insulin Human Lispro 0 AC HS 11/20 1630 AC (HUMALOG) SUBQ 11/21 1438 Allergies:Coded Allergies:sumatriptan (From IMITREX) (ITCHY 08/30/21) Review of Systems Free Text ROS NotesFree Text ROS Notes:10 pointes ROS performed and documented in subjective, otherwise negative. Objective GeneralVS/I O:Vital Signs: Date Time Temp Pulse Resp B/P B/P Pulse O2 O2 Flow FiO2 Mean Ox Delivery Rate 11/20 1827 37.1 83 18 111/71 84.4 96 11/20 1522 100 14 103/69 80.2 95 11/20 1519 37.7 101 18 85/51 62.5 96 11/20 1303 37.1 113 17 100/79 86 95 Room air PATIENT WEIGHT: Weight (lb): Weight (oz): Weight (kg): 100.000 Medications:Active Meds + DC'd Last 24 HrsPiperacillin Sod/Tazobactam Sod (ZOSYN) 3.375 GM Q8HR IV (UNV) Sodium Chloride (SODIUM CHLORIDE 0.9%) 100 MLInsulin Human Lispro (HUMALOG) 0 AC HS SUBQ Morphine Sulfate (morphine SULFATE) 4 MG Q4H PRN IV Ondansetron HCl (ZOFRAN) 4 MG Q4H PRN PRN IV Sodium Chloride (0.9% Sodium Chloride) 1,000 ML .[id number] IV Ampicillin Sodium/Sulbactam Sodium (UNASYN 3 GM) 3 GM X1ED STA IV (DC) Sodium Chloride (SODIUM CHLORIDE 0.9%) 100 MLMorphine Sulfate (morphine SULFATE) 4 MG X1ED STA IV (DC) Ondansetron HCl (ZOFRAN) 4 MG X1ED STA IV (DC) Sodium Chloride (0.9% Sodium Chloride) 1,000 ML X1ED STA IV (DC) Physical ExamGeneral appearance: awakeHead/eyes: normocephalicENT: normal noseNeck: no JVDC-Spine clearance: no midline tendernessCardiovascular: no murmurRespiratory: no distressAbdomen: non-tender, softGenitourinary: no bladder distentionExtremities: no edemaMusculoskeletal: no tenderenessNeuro/EARLY HEAD START TEACHER: alert, oriented X 3 ResultsFindings/Data:Laboratory Tests 11/20 11/20 11/20 11/20 1834 1512 1325 1324 Chemistry Sodium (134 - 147 mmol/L) 129 L Potassium (3.4 - 5.0 mmol/L) 3.9 Chloride (100 - 108 mmol/L) 92 L Carbon Dioxide (21 - 32 mmol/L) 30 Anion Gap (4.0 - 15.0 GAP calc) 7.0 BUN (7 - 18 MG/DL) 20 H Creatinine (0.6 - 1.0 MG/DL) 2.4 H Glomerular Filtr Rate (>60 estGFR) 25 L Glucose (70 - 110 MG/DL) 186 H POC Glucose (70 - 110 mg/dL) 156 H Lactic Acid (0.4 - 2.0 mmol/L) 2.2 H 3.6 H Calcium (8.5 - 10.1 MG/DL) 8.2 L Total Bilirubin (0.2 - 1.2 MG/DL) 1.10 AST (15 - 37 Unit/L) 49 H ALT (12 - 78 Unit/L) 53 Total Alk Phosphatase (45 - 117 Unit/L) 178 H Total Protein (6.4 - 8.2 G/DL) 8.1 Albumin (3.4 - 5.0 G/DL) 2.8 L Globulin (GM/dL) 5.3 Albumin/Globulin Ratio (1.2 - 2.2 RATIO) 0.5 L Laboratory Tests 11/20 1324 Hematology WBC (3.5 - 11.0 K/mm3) 10.5 RBC (4.70 - 6.10 M/mm3) 4.24 L Hgb (10.4 - 14.9 G/DL) 10.7 Hct (31.5 - 44.1 %) 33.6 MCV (84.5 - 98.6 Fl) 79.2 L MCH (27.0 - 34.2 pg) 25.2 L MCHC (31.5 - 34.0 G/DL) 31.8 RDW (11.5 - 14.5 SD) 14.2 Plt Count (150 - 450 K/mm3) 386 MPV (7.0 - 10.5 fL) 10.30 Add Manual Diff (CRITERIA DIFF/SCN) YES Seg Neutrophils % (40 - 75 %) 71 Band Neutrophils % (0 - 8 %) 25 H Lymphocytes % (Manual) (18.7 - 40.6 %) 3 L Eosinophils % (Manual) (0.0 - 4.1 %) 1 Platelet Estimate (ADEQUATE THOUSAND) ADEQUATE Plt Morphology Comment NORMAL Anisocytosis (NONE) TRACE Ovalocytes (NONE ON SCAN) TRACE [place] Cells (NONE ON SCAN) TRACE Laboratory Tests 11/20 1324 Urines Urine Color (YEL/STRAW discript) YELLOW Urine Appearance (CLEAR discript) SL CLOUDY Urine pH (5.0 - 7.0 pH UNITS) 5.5 Ur Specific [place] (1.005 - 1.030 SG) 1.015 Urine Protein (NEG mg/dL) 1+ H Urine Glucose (UA) (NEG mg/dL) NEGATIVE Urine Ketones (NEG mg/dL) NEGATIVE Urine Blood (NEG mg/DL) 2+ H Urine Nitrite (NEG SCREEN) NEGATIVE Urine Bilirubin (NEG mg/dL) NEGATIVE Urine Urobilinogen (<2.0 mg/dL) 4.0 H Ur Leukocyte Esterase (NEGATIVE Leuk/mcL) 1+ H Urine RBC (0 - 3 #RBC/HPF) 0-1 Urine WBC (0 - 3 #WBC/HPF) 10-20 H Ur Squamous Epith Cells (NONE /HPF) TRACE Urine Bacteria (NONE - TRACE /HPF) 1+ H Urine Culture Screen (Culture CHK Criteria) YES,WBC>10 EPI<25 Radiology data:Recent Impressions:ULTRASOUND - US RETROPERITONEAL COM 11/20 1623 Report Impression - Status: SIGNED Entered: 11/20/2022 1644 IMPRESSION: Mild to moderate right-sided hydronephrosis. 1.6 cm kidney stone notedin the right renal pelvis.Impression By: [email or web address] - Ramin Nath D.O. Diagnosis, Assessment Plan Free Text DxA P NotesFree Text DxA P Notes:1. SHER on CKD stage 2 to 3. Etiology likely ATN 2. Hyponatremialikely hypovolemic hyponatremia. 3. UTI. 4. Right kidney stone / mild to mderate hydronephrosis. 5. HTN. 6. DM. 7. Hypovolemia. RecommendationsNS 100 ml/hour. Avoid NSAID Urine studies. Drug dose adjustment to GFR. Thank you for the consultation, any question please call [phone]. at 2011 RPT #: [id number] OF REPORT BWNpvtamchnney4951-75-04K21:05:00L.[id number] 283AVAvailable for patient nxlkWUMJCOCKWGMTVK8976-02-18S36:13:12 [facility] 2022-11-20 17:31:00 [id number] x6t0qAiQ9dDnMzokAKpzZDFsyYnYP /52vUM0M1mMP5mM48ubZC3lbdFu0805-04-70G98:31:00 [facility] ([facility]ospital[facility] History PhysicalREPORT#:[id number] REPORT STATUS: SignedDATE:11/20/22 TIME:1731 PATIENT: DAVID BELLO HQLONNIE Hernandez UNIT #: [id number]#: [id number] [address] [birth year] AGE: 42 SEX: F ATTEND: Glen Nava [facility] AUTHOR: Glen Nava MD * ALL edits or amendments must be made on the electronic/computer document * See AddendumHistory of Present Illness HPIChief complaint:Abdominal Pain HPI:42-year-old female with history of stage II CKD, hypertension, diabetes, pericardial effusion status post pericardiocentesis and large right 1.8 mm stonein the distal pole of right kidney came in with right flank pain. She was recently admitted on 11/01 for obstructive uropathy from a 1.8 mm right kidney stone. Urine grew out ESBL bacteria. The plan per the urology note was for outpatient follow-up for ultrasound and possible lithotripsy versus stent after the infection cleared. The patient return to the ED because of persistent pain.She reports intractable right flank pain radiating to the right mid abdomen associated with nausea and nonbloody nonbilious emesis. She reports objective fever, chills and extreme diaphoresis. History Past Medical Surgical HxAdditional medical history:Hypertension, diabetes, CKD stage II Additional surgical history:reviewed. Kidney stone resetion. Family HistoryFamily history:Reports: Hypertension. Additional family history:Mother with kidney stones Social HistoryAlcohol use: Denies EtOH useDrug use: Denies recreational drugsSmoking status for patients 13 years old or older: Never Smoker Medication/Allergy-Vaccine HxMedications:Home Medications:SEMAGLUTIDE (OZEMPIC PEN (4 MG/3mL)) 1 MG SUBQ Q7D LOSARTAN (COZAAR) 25 MG PO DAILY 1800 LEVOTHYROXINE (SYNTHROID) 125 MCG PO DAILY 0700 HYDROcodone/APAP (HYDROcodone/APAP 7.5/325) 1 TAB PO Q4H Allergies:Coded Allergies:sumatriptan (From IMITREX) (ITCHY 08/30/21) Review of Systems Free Text ROS NotesFree Text ROS Notes:Constitutional:Reports: generalized weakness. Skin:Denies: rash. Allergy/Immun:Denies: rhinorrhea, sneezing. Eyes:Denies: visual loss/blurred. ENT:Denies: earache, nasal congestion. Respiratory:Denies: non productive cough. Cardiovascular:Denies: chest pain, palpitations. GI:Denies: diarrhea, nausea. :Denies: dysuria. Musculoskeletal:Reports: arthritis. Denies: extremity pain. Heme:Denies: bleeding. Endocrine:Denies: polydipsia. Neuro:Reports: dizziness, gait problem, lightheaded, spinning sensation. Psych:Reports: anxiety. All systems rev neg: except as noted OBJECTIVEVS/I O:Vital Signs Date Temp Pulse Resp B/P B/P Mean Pulse Ox FiO2 11/20 98.7-99.9 100-113 14-18 85-103/51-79 62.5-86 95-96 Last Documented: Result Date Time Pulse Ox 95 11/20 1522 B/P 103/69 11/20 1522 B/P Mean 80.2 11/20 1522 Pulse 100 11/20 1522 Resp 14 11/20 1522 Temp 99.9 11/20 1519 O2 Delivery Room air 11/20 1303 Patient Weight and BMI Weight (kg): 100.000 BMI: 36.7 Medications:Active Meds + DC'd Last 24 HrsInsulin Human Lispro (HUMALOG) 0 AC HS SUBQ Morphine Sulfate (morphine SULFATE) 4 MG Q4H PRN IV Ondansetron HCl (ZOFRAN) 4 MG Q4H PRN PRN IV Sodium Chloride (0.9% Sodium Chloride) 1,000 ML .[id number] IV Ampicillin Sodium/Sulbactam Sodium (UNASYN 3 GM) 3 GM X1ED STA IV (DC) Sodium Chloride (SODIUM CHLORIDE 0.9%) 100 MLMorphine Sulfate (morphine SULFATE) 4 MG X1ED STA IV (DC) Ondansetron HCl (ZOFRAN) 4 MG X1ED STA IV (DC) Sodium Chloride (0.9% Sodium Chloride) 1,000 ML X1ED STA IV (DC) ResultsFindings/Data:Laboratory Tests 11/20/22 1325:[Embedded Image Not Available] 11/20/22 1324:[Embedded Image Not Available]Laboratory Tests: 11/20 11/20 11/20 1512 1325 1324Chemistry Sodium (134 - 147 mmol/L) 129 L Potassium (3.4 - 5.0 mmol/L) 3.9 Chloride (100 - 108 mmol/L) 92 L Carbon Dioxide (21 - 32 mmol/L) 30 Anion Gap (4.0 - 15.0 GAP calc) 7.0 BUN (7 - 18 MG/DL) 20 H Creatinine (0.6 - 1.0 MG/DL) 2.4 H Glomerular Filtr Rate (>60 estGFR) 25 L Glucose (70 - 110 MG/DL) 186 H Lactic Acid (0.4 - 2.0 mmol/L) 2.2 H 3.6 H Calcium (8.5 - 10.1 MG/DL) 8.2 L Total Bilirubin (0.2 - 1.2 MG/DL) 1.10 AST (15 - 37 Unit/L) 49 H ALT (12 - 78 Unit/L) 53 Total Alk Phosphatase (45 - 117 Unit/L) 178 H Total Protein (6.4 - 8.2 G/DL) 8.1 Albumin (3.4 - 5.0 G/DL) 2.8 L Globulin (GM/dL) 5.3 Albumin/Globulin Ratio (1.2 - 2.2 RATIO) 0.5 LHematology WBC (3.5 - 11.0 K/mm3) 10.5 RBC (4.70 - 6.10 M/mm3) 4.24 L Hgb (10.4 - 14.9 G/DL) 10.7 Hct (31.5 - 44.1 %) 33.6 MCV (84.5 - 98.6 Fl) 79.2 L MCH (27.0 - 34.2 pg) 25.2 L MCHC (31.5 - 34.0 G/DL) 31.8 RDW (11.5 - 14.5 SD) 14.2 Plt Count (150 - 450 K/mm3) 386 MPV (7.0 - 10.5 fL) 10.30 Add Manual Diff (CRITERIA DIFF/SCN) YES Seg Neutrophils % (40 - 75 %) 71 Band Neutrophils % (0 - 8 %) 25 H Lymphocytes % (Manual) (18.7 - 40.6 %) 3 L Eosinophils % (Manual) (0.0 - 4.1 %) 1 Platelet Estimate (ADEQUATE THOUSAND) ADEQUATE Plt Morphology Comment NORMAL Anisocytosis (NONE) TRACE Ovalocytes (NONE ON SCAN) TRACE [place] Cells (NONE ON SCAN) TRACEUrines Urine Color (YEL/STRAW discript) YELLOW Urine Appearance (CLEAR discript) SL CLOUDY Urine pH (5.0 - 7.0 pH UNITS) 5.5 Ur Specific [place] (1.005 - 1.030 SG) 1.015 Urine Protein (NEG mg/dL) 1+ H Urine Glucose (UA) (NEG mg/dL) NEGATIVE Urine Ketones (NEG mg/dL) NEGATIVE Urine Blood (NEG mg/DL) 2+ H Urine Nitrite (NEG SCREEN) NEGATIVE Urine Bilirubin (NEG mg/dL) NEGATIVE Urine Urobilinogen (<2.0 mg/dL) 4.0 H Ur Leukocyte Esterase (NEGATIVE Leuk/mcL) 1+ H Urine RBC (0 - 3 #RBC/HPF) 0-1 Urine WBC (0 - 3 #WBC/HPF) 10-20 H Ur Squamous Epith Cells (NONE /HPF) TRACE Urine Bacteria (NONE - TRACE /HPF) 1+ H Urine Culture Screen (Culture CHK Criteria) YES,WBC>10 EPI<25 Laboratory Tests 11/20/22 1325:[Embedded Image Not Available] 11/20/22 1324:[Embedded Image Not Available] Radiology data:Recent Impressions:ULTRASOUND - US RETROPERITONEAL COM 11/20 162 Report Impression - Status: SIGNED Entered: 11/20/2022 1644 IMPRESSION: Mild to moderate right-sided hydronephrosis. 1.6 cm kidney stone notedin the right renal pelvis.Impression By: [email or web address] - Ramin Nath D.O. Free Text PE NotesFree Text PE Notes:Physical ExamGeneral appearance: alert, awake, orientedHEENT : normocephalic ,AtraumaticEyes: Eyes normal inspection.ENT: Dry mucous membranes present.Neck: Normal inspection. Neck supple.CVS: Normal heart rate and rhythm. Heart sounds normal.Respiratory: No respiratory distress. Breath sounds normal.Abdomen: Soft and nontender.Genitourinary: no bladder distentionBack: Normal inspection.Skin: Skin warm. Normal skin color. No rash.Extremities: No lower extremity edema.Neuro: Oriented X 3. No motor deficitNo generalized lymph adenopathyPsych normal affect Diagnosis, Assessment PlanFree Text A P:UTIHydronephrosisNephrolithiasisAcute kidney injury on CKD stage IIHypertension,DiabetesDehydrationHyponatremia PlanIV fluidsStarted on IV antibioticsWaiting for culturesNephrology consultedUrology consult placedPain controlElectrolytes monitor and replace accordinglyHypomagnesemia notedWe will replace electrolytesGI/DVT prophylaxisAdvanced directive full code at 1331 Addendum 1: 11/26/22 1650 by Glen Nava MD [id number] sepsis secondary to pyelonephritisPatient met 2 SIRSHR 113 and respiratory rate of 22Source infection pyelonephritisLactic acid 3.6No septic shockIncreased creatinine due to CKD stage II at 1652 RPT #: [id number] OF REPORT HPHistory and physical [id number]:31:00L.[id number] AVAvailable for patient fleiDMUMTZEFGEKJWK2109-19-55A58:32:14 [facility] 2022-11-20 13:17:00 [id number] /+KA3bm8QQOLG+jrm2eZob95/5s9273-47-13I03:17:00 [facility])EMERGENCY PROVIDER REPORTREPORT#:[id number] REPORT STATUS: SignedDATE:11/20/22 TIME:1317 PATIENT: DAVID BELLO HQIRRO N UNIT #: [id number]#: [id number] [address] AGE: 42 SEX: F PCP PHYS: Javi Cuadra AUTHOR: Trinh Schumacher * ALL edits or amendments must be made on the electronic/computer document * Trinh Schumacher 11/20/22 1317:HPI- Female Free Text HPI NotesFree Text HPI [id number] female with history of stage II CKD, hypertension, diabetes, pericardial effusion status post pericardiocentesis and large right 1.8 mm stonein the distal pole of right kidney presents to ED with worsening right flank pain. This is the patient's fourth visit in the last 3 weeks. She was admittedon 11/01 for obstructive uropathy from a 1.8 mm right kidney stone. Urine grew out ESBL bacteria. She was treated with IV Unasyn in house and discharged home on Augmentin which she completed. The plan per the urology note was for outpatient follow-up for ultrasound and possible lithotripsy versus stent after the infection cleared. The patient return to the ED a week later for persistentpain. She did not required admission at that time and was discharged home with continued pain control and urology follow-up Urology clinic has not had a chance to follow-up to schedule her an appointment, and she is now in worsening pain. She reports intractable right flank pain radiating to the right mid abdomen associated with nausea and nonbloody nonbilious emesis. She reports subjective fever, chills and extreme diaphoresis, dysuria, urniary frequency. GeneralConfirmed Patient YesInitial Greet Date/Time 11/20/22 1256 PresentationChief Complaint Blood in urine, Dysuria, Flank pain RHx Obtained From Patient)( Sudden in Onset? NoOnset Occurred Weeks ago (3) Review of Systems ROS StatementsAll systems rev neg except as marked. Free Text ROS NotesFree Text ROS NotesPer HPI Past Medical History - AdultStated Complaint KIDNEY STONES CAME BEFOREFOR THE SAME REASONAllergiesCoded Allergies:sumatriptan (From IMITREX) (ITCHY 08/30/21) Home MedicationsActive ScriptsLOSARTAN (COZAAR) 25 MG PO DAILY 1800 LOSARTAN (COZAAR) 25 MG PO DAILY 1800 #30 TAB Ref 1 Prov: 11/04/22LEVOTHYROXINE (SYNTHROID) 125 MCG PO DAILY 0700 LEVOTHYROXINE (SYNTHROID) 125 MCG PO DAILY 0700 #30 TAB Ref 1 Prov: 11/04/22HYDROcodone/APAP (HYDROcodone/APAP 7.5/325) 1 TAB PO Q4H HYDROcodone/APAP (HYDROcodone/APAP 7.5/325) 1 TAB PO Q4H #12 TABS Prov: 11/07/22 Discontinued ScriptsAMOXICILLIN/CLAV K (AUGMENTIN 875/125 MG) 875 MG PO Q12H 12 Days #24 TABS Prov: 11/04/22 DC: 11/20/22 1750 DC prior to admitAMOXICILLIN/CLAV K (AUGMENTIN 875/125 MG) 875 MG PO Q12H AMOXICILLIN/CLAV K (AUGMENTIN 875/125 MG) 875 MG PO Q12H #14 TABS Prov: 11/07/22 DC: 11/20/22 1750 DC prior to admitONDANSETRON ODT (ZOFRAN ODT) 4 MG PO Q6H PRN PRN NAUSEA/VOMITING ONDANSETRON ODT (ZOFRAN ODT) 4 MG PO Q6H PRN PRN NAUSEA/VOMITING #15 TABS Prov: 11/07/22 DC: 11/20/22 1750 DC prior to admit Reported MedicationsSEMAGLUTIDE (OZEMPIC PEN (4 MG/3mL)) 1 MG SUBQ Q7D Past Medical History:Reports: Diabetes mellitus, Hypertension, Kidney disease/stones. Past Surgical History:Reports: Thyroidectomy. Additional Surgical Historyreviewed. Kidney stone resetion.Additional Family HistoryMother with kidney stonesAlcohol Use Denies EtOH useDrug Use Denies recreational drugs Physical Exam Vital SignsVital SignsFirst Documented: Result Date Time Pulse Ox 95 11/20 1303 B/P 100/79 11/20 1303 B/P Mean 86 11/20 1303 O2 Delivery Room air 11/20 1303 Temp 37.1 11/20 1303 Pulse 113 11/20 1303 Resp 17 11/20 1303 Last Documented: Result Date Time Pulse Ox 95 11/20 1522 B/P 103/69 11/20 1522 B/P Mean 80.2 11/20 1522 Pulse 100 11/20 1522 Resp 14 11/20 152 Temp 37.7 11/20 1519 O2 Delivery Room air 11/20 1303 Review of Vital Signs Reviewed Focused PEGeneral/Const General/Const visibly uncomfortable 2/2 painResp/Chest Respiratory/Chest Breath sounds NL, Breath sounds = bilat, No respiratory distress, No rales, No rhonchi, No wheezingCardiovascular Cardiovascular Regular rhythm, Heart sounds NL, No gallop, No murmurs, No rubs, tachychardic 2/2 painAbdomen/GI Abdomen/GI Soft, Non-tender, McBurney's non-tender, No guarding, No rebound, BS normoactiveMS Back Back R CVA TTPGenitourinary General Exam deferred Interpretation Diagnostics Lab Results InterpretationResultsLaboratory Tests 11/20/22 1325:[Embedded Image Not Available] 11/20/22 1324:[Embedded Image Not Available]Laboratory Tests: 11/20 11/20 11/20 1512 1325 1324Chemistry Sodium (134 - 147 mmol/L) 129 L Potassium (3.4 - 5.0 mmol/L) 3.9 Chloride (100 - 108 mmol/L) 92 L Carbon Dioxide (21 - 32 mmol/L) 30 Anion Gap (4.0 - 15.0 GAP calc) 7.0 BUN (7 - 18 MG/DL) 20 H Creatinine (0.6 - 1.0 MG/DL) 2.4 H Glomerular Filtr Rate (>60 estGFR) 25 L Glucose (70 - 110 MG/DL) 186 H Lactic Acid (0.4 - 2.0 mmol/L) 2.2 H 3.6 H Calcium (8.5 - 10.1 MG/DL) 8.2 L Total Bilirubin (0.2 - 1.2 MG/DL) 1.10 AST (15 - 37 Unit/L) 49 H ALT (12 - 78 Unit/L) 53 Total Alk Phosphatase (45 - 117 Unit/L) 178 H Total Protein (6.4 - 8.2 G/DL) 8.1 Albumin (3.4 - 5.0 G/DL) 2.8 L Globulin (GM/dL) 5.3 Albumin/Globulin Ratio (1.2 - 2.2 RATIO) 0.5 LHematology WBC (3.5 - 11.0 K/mm3) 10.5 RBC (4.70 - 6.10 M/mm3) 4.24 L Hgb (10.4 - 14.9 G/DL) 10.7 Hct (31.5 - 44.1 %) 33.6 MCV (84.5 - 98.6 Fl) 79.2 L MCH (27.0 - 34.2 pg) 25.2 L MCHC (31.5 - 34.0 G/DL) 31.8 RDW (11.5 - 14.5 SD) 14.2 Plt Count (150 - 450 K/mm3) 386 MPV (7.0 - 10.5 fL) 10.30 Add Manual Diff (CRITERIA DIFF/SCN) YES Seg Neutrophils % (40 - 75 %) 71 Band Neutrophils % (0 - 8 %) 25 H Lymphocytes % (Manual) (18.7 - 40.6 %) 3 L Eosinophils % (Manual) (0.0 - 4.1 %) 1 Platelet Estimate (ADEQUATE THOUSAND) ADEQUATE Plt Morphology Comment NORMAL Anisocytosis (NONE) TRACE Ovalocytes (NONE ON SCAN) TRACE Lindsay Cells (NONE ON SCAN) TRACEUrines Urine Color (YEL/STRAW discript) YELLOW Urine Appearance (CLEAR discript) SL CLOUDY Urine pH (5.0 - 7.0 pH UNITS) 5.5 Ur Specific [place] (1.005 - 1.030 SG) 1.015 Urine Protein (NEG mg/dL) 1+ H Urine Glucose (UA) (NEG mg/dL) NEGATIVE Urine Ketones (NEG mg/dL) NEGATIVE Urine Blood (NEG mg/DL) 2+ H Urine Nitrite (NEG SCREEN) NEGATIVE Urine Bilirubin (NEG mg/dL) NEGATIVE Urine Urobilinogen (<2.0 mg/dL) 4.0 H Ur Leukocyte Esterase (NEGATIVE Leuk/mcL) 1+ H Urine RBC (0 - 3 #RBC/HPF) 0-1 Urine WBC (0 - 3 #WBC/HPF) 10-20 H Ur Squamous Epith Cells (NONE /HPF) TRACE Urine Bacteria (NONE - TRACE /HPF) 1+ H Urine Culture Screen (Culture CHK Criteria) YES,WBC>10 EPI<25 Microbiology: Date/Time Procedure - Status Source Growth 11/20 1324 Blood Culture - RECD BLOOD 11/20 1324 Blood Culture - RECD BLOOD 11/20 1316 Urine Culture - RECD URINE Lab Imaging StatementLaboratory radiographic studies reviewed and considered in the medical decision-making. Re-Evaluation MDM Free Text MDM NotesFree Text MDM NotesPatient's first lactic acid was 3.6 but her white count was 10.3. Lactic acidosis likely related to evolving CKD/worsening CKD and not from sepsis. Re-Evaluation/ProgressRe-Evaluation/Progress Text/Dict Notepain better controlled. SHER on CKD with Ct 2.4. Plan for admission and will consult Dr Rodriguez, KUMAR. Time of Re-Eval 1526 Re-Eval Status Improved ED CourseMedication(s) OrderedMedication(s) Ordered:Anti-Infective Agents Sig/Mona Start time Last Medication Dose Route Stop Time Status Admin Ampicillin Sodium/ 3 GM X1ED STA 11/20 1325 DC 11/20 Sulbactam Sodium IV 11/20 1354 1350 Sodium Chloride 100 ML Central Nervous System Agents Sig/Mona Start time Last Medication Dose Route Stop Time Status Admin Morphine Sulfate 4 MG Q4H PRN 11/20 1545 AC 11/21 IV 11/23 1544 0621 Morphine Sulfate 4 MG X1ED STA 11/20 1313 DC 11/20 IV 11/20 1314 1341 Electrolytic, Caloric, And Aba Sig/Mona Start time Last Medication Dose Route Stop Time Status Admin Sodium Chloride 1,000 ML .Q10H 11/20 1545 AC 11/21 IV 11/21 1438 0311 Sodium Chloride 1,000 ML X1ED STA 11/20 1313 DC 11/20 IV 11/20 1412 1339 Gastrointestinal Drugs Sig/Mona Start time Last Medication Dose Route Stop Time Status Admin Ondansetron HCl 4 MG Q4H PRN PRN 11/20 1545 AC IV 12/20 1544 Ondansetron HCl 4 MG X1ED STA 11/20 1313 DC 11/20 IV 11/20 1314 1341 Hormones And Synthetic Substit Sig/Mona Start time Last Medication Dose Route Stop Time Status Admin Insulin Human Lispro 0 AC HS 11/20 1630 AC 11/20 SUBQ 11/21 1438 2120 ConsultationConsultation Referral/Consult Name Brett Rodriguez MD Shell Sieve Operator Called Urology Requested Call Time 1533 Requested Call Date 11/20/22 Call Returned Call returned Call Returned Time 1542 Call Returned Date 11/20/22 Free Text Consult Notes REcommended renal US. Does not think renal pole stone is source of pain, but will see and re-eval. Differential DiagnosisDifferential Diagnosis Ureterolithiasis, Urinary obstruction, Urinary tract infection, SHER on CKD, electrolyte abnormality. , Pt tachycardic 2/2 pain and HRis currently only SIRS criteria. Previous admission reviewed and given h/o sepsis in 2019, will order cultures and lactic acid, but not activate code sepsis unless other SIRS criteria present. Given h/o ESBL UTI, will give dose ofIV Unasyn since that is what it was previously sensitive to. Manage pain, IVF, NPO with anticipation of admission MDM-ComplexitySeverity/Chronicity Evaluationacute on chronic CKD, intractable flank pain MDM-History/Test InformationIndependent Hx From/Whyprevioius medical record and MDM-Treatment/EvaluationShared Decision-MakingReviewed labs with patient. Discussed need for admission for consult, pain control and nephrology consult for worsening CKD Patient Discharge Departure Vital Signs/ConditionVital SignsFirst Documented: Result Date Time Pulse Ox 95 11/20 1303 B/P 100/79 11/20 1303 B/P Mean 86 11/20 1303 O2 Delivery Room air 11/20 1303 Temp 37.1 11/20 1303 Pulse 113 11/20 1303 Resp 17 11/20 1303 Last Documented: Result Date Time Pulse Ox 95 11/20 1522 B/P 103/69 11/20 1522 B/P Mean 80.2 11/20 1522 Pulse 100 11/20 1522 Resp 14 11/20 1522 Temp 37.7 11/20 1519 O2 Delivery Room air 11/20 1303 All vital signs available at the time of this entry have been reviewed. Clinical ImpressionClinical ImpressionPrimary Impression: PyelonephritisSecondary Impressions: Acute kidney injury superimposed on chronic kidney disease, Hyponatremia, Renal colic Disposition DecisionHospitalize Hosp Physician Name Glen Nava MD Hosp Physician Hospitalist Request Time 1545 Request Date 11/20/22 )( Accepts Hospitalization Yes )( Reason for Hospitalizationworsening CKD, poor pain control )( Accepted Time 1545 )( Accepted Date 11/20/22 Call Information will see patient Discharge/Care PlanCounseled Regarding Diagnosis, Lab results, Imaging studies, Need for admission Link An 11/21/22 0707:Patient Discharge Departure Supervising Physician Note MidLv Saw Pt AloneI have reviewed the PA/PRODUCT DEVELOPMENT CARPENTER's note and plan of care. I was available for consultation as needed at all times during the patient's visit in the emergency department. I agree with the clinical impression, plan and disposition. at 1823 at 0707 RPT #: [id number] OF REPORTEDEmergency department [id number]:17:00L.[id number] ilable for patient pfwdZBBGODPNXDNMOB3747-63-32N93:24:07 [facility] 2022-11-07 07:27:00 [id number]/[id number] WMu/fd8bedwk1eNg1svMnmcU6Hb0525-29-65P71:27:00 [facility] ([facility])EMERGENCY PROVIDER REPORTREPORT#:[id number] REPORT STATUS: SignedDATE:11/07/22 TIME:726 PATIENT: DAVID BELLO HQLONNIE Hernandez UNIT #: [id number]#: [id number] ROOM/BED:: 79 AGE: 42 SEX: F PCP PHYS: Javi Cuadra MDSERVICE AUTHOR: Rony Hickey DO * ALL edits or amendments must be made on the electronic/computer document * HPI-General Illness GeneralInitial Greet Date/Time 11/07/22 0618 PresentationChief Complaint R flank pain Free Text HPI NotesFree Text HPI Notes42 yo female with history of HTN, DM, previou episodes of UTI, hypothyrodism, kidney stones, pericardial effusion, s/p pericardiocenthesis, presented to ER initially with 4 to 5 days of worsening right flank pain and dysuria, despite previously being started on Bactrim at an urgent care Patient found to have a large, 1.8 cm lower right lower pole stone associated with acute kidney injury. Normal creatinine 0.9 1.3. She is found to have a UTI with ESBL E. coli sensitive to [facility]yn and [facility]. [facility]in 3 days ago, but there was a problemat the pharmacy, so she has not been taking this. However, she did continue a couple days of the previously prescribed Bactrim After taking the course of Augmentin, she was to follow-up with uro in 1 to 2 weeks for definitive treatment of the stone She returns now with increasing nausea and pain [facility] Review of Systems ROS StatementsAll systems rev neg except as marked. Free Text ROS NotesFree Text ROS NotesPatient denies fever, chest pain, shortness of breath, cough, melena, hematuria,hematochezia, lower extremity swelling or calf pain. Past Medical History - AdultStated Complaint L/S-11/01 FOR UTI KIDNEY STONE-STILL EXP PAIN/NAUSAllergiesCoded Allergies:sumatriptan (From IMITREX) (ITCHY 08/30/21) Home MedicationsActive ScriptsLOSARTAN (COZAAR) 25 MG PO DAILY 1800 LOSARTAN (COZAAR) 25 MG PO DAILY 1800 #30 TAB Ref 1 Prov: 11/04/22LEVOTHYROXINE (SYNTHROID) 125 MCG PO DAILY 0700 LEVOTHYROXINE (SYNTHROID) 125 MCG PO DAILY 0700 #30 TAB Ref 1 Prov: 11/04/22AMOXICILLIN/CLAV K (AUGMENTIN 875/125 MG) 875 MG PO Q12H 12 Days #24 TABS Prov: 11/04/22 Discontinued ScriptsCEPHALEXIN (KEFLEX) 500 MG PO Q12HR CEPHALEXIN (KEFLEX) 500 MG PO Q12HR #20 CAPS Prov: 08/31/21 DC: 11/01/22 214 Change of medicationKETOROLAC (TORADOL) 10 MG PO Q6H PRN PRN PAIN KETOROLAC (TORADOL) 10 MG PO Q6H PRN PRN PAIN #20 TABS Prov: 08/31/21 DC: 11/01/22 2141 Change of medication Reported MedicationsSEMAGLUTIDE (OZEMPIC PEN (4 MG/3mL)) 1 MG SUBQ Q7D Discontinued Reported MedicationsLOSARTAN (COZAAR) 25 MG PO DAILY 1800 LEVOTHYROXINE (SYNTHROID) 125 MCG PO DAILY 0700 Physical Exam Vital SignsVital SignsFirst Documented: Result Date Time Pulse Ox 100 11/08 627 B/P 128/90 11/07 0528 B/P Mean 102 11/08 627 O2 Delivery Room air 11/08 627 Temp 37.1 11/08 627 Pulse 81 11/08 627 Resp 16 11/08 627 Last Documented: Result Date Time Pulse Ox 100 11/07 0628 B/P 128/90 11/07 0628 B/P Mean 102 11/07 0528 O2 Delivery Room air 11/08 627 Temp 37.1 11/08 627 Pulse 81 11/07 0528 Resp 16 11/07 0528 Review of Vital Signs Reviewed Free Text PE NotesFree Text PE NotesGeneral/Const General/Const Awake, Alert, moderate distress with ongoing right flank pain and nauseaMS Head Head AtraumaticEyes Eyes Atraumatic, EOMI, No scleral icterusEars/Nose/Throat Ears/Nose/Throat Airway patent, Mucous membranes moist, Pharynx NL, No peritonsillar abscess, Nose exam NL, No facial swellingMS Neck Neck Supple, No meningismus, Full range of motion, No adenopathy, No midline vertebral tend, No massesResp/Chest Respiratory/Chest Atraumatic, Breath sounds NL, No respiratory distress, No rales, No rhonchi, No wheezingCardiovascular Cardiovascular Heart rate NL, Regular rhythm, Heart sounds NL, No gallop, No murmurs, No rubs, Peripheral circulation NLAbdomen/GI Abdomen/GI Soft, Non-tender, No guarding; positive moderate CVA tenderness onthe rightMS Back Back Inspection NL, Non-tender at midlineLymphatic Lymphatic No cervical adenopathyMS Upper Extrem Upper Extremity/MS Inspection NLSkin Skin Color NL, No rash, WarmGenitourinary General Exam deferredRectum Rectum/Perineum Exam deferredNeurologic Neurologic Oriented X3, Speech NL, CN II - XII intactPsychiatric Psychiatric Affect NL Interpretation Diagnostics Lab Results InterpretationResultsLaboratory Tests 11/07/22 0646:[Embedded Image Not Available]Laboratory Tests: 11/07 11/07 11/07 0800 0646 0633 Chemistry Sodium (134 - 147 mmol/L) 136 Potassium (3.4 - 5.0 mmol/L) 4.3 Chloride (100 - 108 mmol/L) 104 Carbon Dioxide (21 - 32 mmol/L) 26 Anion Gap (4.0 - 15.0 GAP calc) 6.0 BUN (7 - 18 MG/DL) 8 Creatinine (0.6 - 1.0 MG/DL) 1.2 H Glomerular Filtr Rate (>60 estGFR) 58 L Glucose (70 - 110 MG/DL) 136 H Calcium (8.5 - 10.1 MG/DL) 8.1 L Hematology WBC (3.5 - 11.0 K/mm3) 8.5 RBC (4.70 - 6.10 M/mm3) 4.92 Hgb (10.4 - 14.9 G/DL) 12.3 Hct (31.5 - 44.1 %) 39.1 MCV (84.5 - 98.6 Fl) 79.5 L MCH (27.0 - 34.2 pg) 25.0 L MCHC (31.5 - 34.0 G/DL) 31.5 RDW (11.5 - 14.5 SD) 14.6 H Plt Count (150 - 450 K/mm3) 436 MPV (7.0 - 10.5 fL) 9.80 Neut % (Auto) (40 - 76 %) 81.6 H Lymph % (Auto) (20.5 - 51.1 %) 11.5 L Piatt % (Auto) (1.7 - 9.3 %) 5.3 Eos % (Auto) (0.0 - 6.0 %) 0.4 Baso % (Auto) (0.0 - 2.0 %) 0.4 Neut # (Auto) (1.8 - 7.6 K/mm3) 7.0 Lymph # (Auto) (0.6 - 3.2 K/mm3) 1.0 Piatt # (Auto) (0.3 - 1.1 K/mm3) 0.5 Eos # (Auto) (0.0 - 0.4 K/mm3) 0.0 Baso # (Auto) (0.0 - 0.1 K/mm3) 0.0 Abs Immat Gran (auto) (0.00 - 0.03 x10 3/uL) 0.07 H Add Manual Diff (CRITERIA DIFF/SCN) NO Immature Gran % (0.0 - 5.0 %) 0.8 Nucleated RBC % (0.0 - 1.0 /100WBC%) 0.0 Urines Urine Color (YEL/STRAW discript) STRAW Urine Appearance (CLEAR discript) CLEAR Urine pH (5.0 - 7.0 pH UNITS) 6.5 Ur Specific [place] (1.005 - 1.030 SG) 1.010 Urine Protein (NEG mg/dL) NEGATIVE Urine Glucose (UA) (NEG mg/dL) NEGATIVE Urine Ketones (NEG mg/dL) NEGATIVE Urine Blood (NEG mg/DL) NEGATIVE Urine Nitrite (NEG SCREEN) NEGATIVE Urine Bilirubin (NEG mg/dL) NEGATIVE Urine Urobilinogen (<2.0 mg/dL) 0.2 Ur Leukocyte Esterase (NEGATIVE Leuk/mcL) TRACE H Urine RBC (0 - 3 #RBC/HPF) 0-1 Urine WBC (0 - 3 #WBC/HPF) 3-5 H Ur Squamous Epith Cells (NONE /HPF) TRACE Urine Bacteria (NONE - TRACE /HPF) OCCASIONAL Urine Culture Screen (Culture CHK Criteria) NO, WBC<10 Urine HCG, Qual (NEGATIVE) NEGATIVE Re-Evaluation MDM Free Text MDM NotesFree Text MDM NotesDDx acute renal insufficiency/renal failure, UTI, ureteral hydronephrosis, sepsis Fortunately patient's repeat creatinine is fairly stable and the urine does not show any significant evidence of repeat infection. She is given a dose of Unasyn here and will have a repeat prescription of Augmentin sent. Additionally, she will be sent with pain medicine to better help control the pain given she is to avoid long-term use of NSAIDs. She will call and set up anappointment for her follow-up with urology she is given extensive education and return precautions will come back if any worsening despite treatment ED CourseMedication(s) OrderedMedication(s) Ordered:Anti-Infective Agents Sig/Mona Start time Last Medication Dose Route Stop Time Status Admin Ampicillin Sodium/ 3 GM X1ED STA 11/07 0636 DC 11/07 Sulbactam Sodium IV 11/07 0705 0639 Sodium Chloride 100 ML Central Nervous System Agents Sig/Mona Start time Last Medication Dose Route Stop Time Status Admin Fentanyl Citrate 50 MCG X1ED STA 11/07 0835 DC 11/07 IV 11/07 0836 0913 Ketorolac 9.9 MG X1ED STA 11/07 0835 DC 11/07 Tromethamine IV 11/07 0836 0911 Hydrocodone Bitart/ 1 TAB X1ED STA 11/07 0629 DC 11/07 Acetaminophen PO 11/07 0630 0639 Gastrointestinal Drugs Sig/Mona Start time Last Medication Dose Route Stop Time Status Admin Ondansetron HCl 4 MG X1ED STA 11/07 0629 DC 11/07 SL 11/07 0630 0639 Patient Discharge Departure Vital Signs/ConditionVital SignsFirst Documented: Result Date Time Pulse Ox 100 / 0628 B/P 128/90 / 0628 B/P Mean 102 11/07 0628 O2 Delivery Room air 11/07 0628 Temp 37.1 11/07 0628 Pulse 81 / 0628 Resp 16 11/07 0628 Last Documented: Result Date Time Pulse Ox 100 / 0628 B/P 128/90 / 0628 B/P Mean 102 / 0628 O2 Delivery Room air 11/07 0628 Temp 37.1 11/07 0628 Pulse 81 / 0628 Resp 16 11/07 0628 All vital signs available at the time of this entry have been reviewed. Condition Stable Clinical ImpressionClinical ImpressionPrimary Impression: Obstruction of ureteropelvic junction (UPJ) due to stoneSecondary Impressions: Flank pain, Noncompliance with medication regimen, UTI (urinary tract infection) Disposition DecisionDischarge )( Discharged to Home Yes )( Time 0903 )( Date 11/07/22 Discharge/Care Plan(Auto) PrescriptionsCurrent Visit ScriptsHYDROcodone/APAP (HYDROcodone/APAP 7.5/325) 1 TAB PO Q4H HYDROcodone/APAP (HYDROcodone/APAP 7.5/325) 1 TAB PO Q4H #12 TABS AMOXICILLIN/CLAV K (AUGMENTIN 875/125 MG) 875 MG PO Q12H AMOXICILLIN/CLAV K (AUGMENTIN 875/125 MG) 875 MG PO Q12H #14 TABS ONDANSETRON ODT (ZOFRAN ODT) 4 MG PO Q6H PRN PRN NAUSEA/VOMITING ONDANSETRON ODT (ZOFRAN ODT) 4 MG PO Q6H PRN PRN NAUSEA/VOMITING #15 TABS Patient Instructions ED Kidney Stone with PainAdditional InstructionsMisha, as discussed, fortunately your kidney function today looks fairly stable and the urine does not show any worsening evidence of infection despite only taken a couple doses of the previous prescribed Bactrim. Please go to the [facility] pharmacy on [address] to pecan picker the Augmentin, but call make sure they have thisby the time that you are ready to pick it up. Please take the full course as directed and use the pain medicine as needed, but add a stool softener if you are taking this and make sure you stay well-hydrated. 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 Call and follow-up with Dr. Rodriguez, by calling and setting up the follow-up appointment today, for approximately a week out at 0926 RPT #: [id number] OF REPORTEDEmerozarks community hospital department [id number]:27:00L.[id number] ilable for patient qgvdMNOHBSCHVLPHCZ3407-80-97A29:27:06 [facility] 2022-11-04 13:52:00 [id number] vwO/[id number] mvWaAtiiEkZGI7abeSrSXD4rKhV6179-23-44U11:52:00 [facility] – [place] ([facility])Nephrology Progress NoteREPORT#:[id number] REPORT STATUS: SignedDATE:11/04/22 TIME:1352 PATIENT: DAVID BELLO HQIRRO N UNIT #: [id number]#: [id number] [address] [birth year] AGE: 42 SEX: F ATTEND: Bj Oneal [facility] AUTHOR: Arash Rivera MD * ALL edits or amendments must be made on the electronic/computer document * SubjectiveHPI:42 yo female with history of HTN, DM, previou episodes of UTI, hypothyrodism, kidney stones, pericardial effusion, s/p pericardiocenthesis, presented to ER c/o cough. Patient fount to have renal failure, and UTI.Patient has hitory of kidney stone, s/p resection; and CKD stage 2 to 3. Renal is consulted for evaluation of renal failure. Comments:Denies sob. Review of Systems Free Text ROS NotesFree Text ROS Notes:10 points review of systems performed and documented in subjective, otherwise negative. Objective GeneralVS/I O:Vital Signs: Date Time Temp Pulse Resp B/P B/P Pulse O2 O2 Flow FiO2 Mean Ox Delivery Rate 11/04 1140 36.7 57 14 138/80 99.4 93 Room air 11/04 0723 36.7 62 14 148/90 109.3 98 Room air 11/04 0459 53 18 158/84 108.5 95 11/04 0356 36.5 57 20 160/90 113.1 99 11/03 2324 36.7 51 14 159/91 113.7 97 11/03 2204 36.5 59 14 147/83 104 98 11/04 2003 98 Room air 21 11/03 1915 36.7 66 16 155/84 107.5 99 Room air 11/03 1605 36.7 59 16 148/85 105.7 98 Room air 24 hour I O ending at 0700: 11/04 0700 11/03 1900 Intake Total 850 2300.00 Output Total Balance 850 2300.00 Intake, IV 1100.00 Intake, Oral 850 1200 Number Voids 3 4 MedicationsActive Meds + DC'd Last 24 HrsAmpicillin Sodium/Sulbactam Sodium (UNASYN 1.5 GM) 1.5 GM Q6H IV Sodium Chloride (0.9% Sodium Chloride) 50 MLLosartan Potassium (COZAAR) 25 MG DAILY PO Levothyroxine Sodium (SYNTHROID) 125 MCG DAILY@0600 PO Hydralazine HCl (APRESOLINE) 5 MG Q6H PRN PRN IV Dextrose/Water (DEXTROSE 10% IN WATER 250 ML) 250 ML ASDIR IV Glucagon (GLUCAGON) 1 MG ASDIR PRN IM Sodium Chloride (SODIUM CHLORIDE 0.9%) 5 ML DAILY IV Morphine Sulfate (morphine Sulfate) 1 MG Q6H PRN PRN IV Ondansetron HCl (ZOFRAN) 4 MG Q6H PRN PRN IV Lactated Ringer's (LACTATED RINGERS) 1,000 ML .Q10H IV (DC) Physical ExamGeneral appearance: awakeHead/eyes: normocephalicENT: normal noseNeck: no JVD C-Spine clearance: no midline tendernessCardiovascular: no murmurRespiratory: clear to auscultationAbdomen: non-tender, softGenitourinary: no bladder distentionExtremities: non-tenderMusculoskeletal: full range of motionNeuro/EARLY HEAD START TEACHER: normal speech ResultsFindings/Data:Laboratory Tests 11/04 11/04 1137 0725 Chemistry POC Glucose (70 - 110 mg/dL) 93 118 H Diagnosis, Assessment PlanFree Text A P:1. SHER on CKD stage 2 to 3l. Creat 0.9 from 1.3Outpatient creat 0.99 on . HTN. 3. DM. 4. Complicated UTI. 5. Kidney stone. 1.8 cm caclulus in the lower pole of the right kidney, on CT scan.6. Hypokalemia.Recommendations:11/04: Oral hydration. Avoid NSAIDs11/03: Taper off IV fluids once patient tolerate p.o. Avoid NSAID.11/02: LR 100 ml/hour. Taper off IV fluids once patient tolerate p.o. Avoid NSAID. 11/01: Continue LR 75 ml/hour. AVoid NSAID. Urine studies. Drug dose adjustment GFR. Thank you for the consultation, any question please call [phone] at [facility] #: [id number] OF REPORT PRProgress gjex0072-44-47V68:52:00L.[id number] able for patient sbvyVMJOQDAPFYYTRM4220-04-59E21:55:06 [facility] 2022-11-04 13:47:00 [id number]/6Exll +8B8Yf0/S5HsxnYnoDaKtzK+CVgfk tn9C/ng0dht42teHzHMWCHUiD092954-47-03K89:47:00 [facility]Hospital[facility] Discharge SummaryREPORT#:[id number] REPORT STATUS: SignedDATE:11/04/22 TIME:1346 PATIENT: DAVID BELLO HQLONNIE Hernandez UNIT #: [id number]#: [id number] [address]: [address] AGE: 42 SEX: F ATTEND: Bj Oneal [facility] AUTHOR: Bj Oneal MD * ALL edits or amendments must be made on the electronic/computer document * General InformationDischarge date: 11/04/22Discharge diagnosis:Complicated UTI with kidney stoneHospital course:Mrs. Bello is a 42-year-old woman who presented with right flank pain and dysuria. She was found to have a large right kidney stone of 1.[address] with perinephric stranding. She has a prior history of sepsis due to infected kidneystones in 2019. She does not know the etiology of her kidney stones at this time. She was treated with IV ceftriaxone but urine culture grew ESBL E. coli which was resistant so she was switched to IV Unasyn. She is much improved overall so we narrowed her treatment to Augmentin which she will be discharged on a 10-day course of. She was evaluated by urology this admission who recommended outpatient follow-up to plan for stone removal after completion of antibiotics. Med Rec Med RecDischarge meds:Continue taking these medications:SEMAGLUTIDE (OZEMPIC PEN (4 MG/3mL)) 1 MG/0.75 ML (4 MG/3 ML) PEN.INJCTR 1 MILLIGRAM SUBCUTANEOUS EVERY 7 DAYS. LOSARTAN (COZAAR) 25 MG TAB 25 MILLIGRAM ORAL DAILY AT 1800. Qty = 30 This prescription has been renewed LEVOTHYROXINE (SYNTHROID) 125 MCG TAB 125 MICROGRAM ORAL DAILY AT 0700. Qty = 30 This prescription has been renewed Start taking the following new medications:AMOXICILLIN/CLAV K (AUGMENTIN 875/125 MG) 875 MG-125 MG TAB 875 MILLIGRAM ORAL EVERY 12 HOURS. Days = 12 Qty = 24 No Refills ObjectiveVS/I OLast Documented: Result Date Time Pulse Ox 93 11/04 1140 B/P 138/80 11/04 1140 B/P Mean 99.4 11/04 1140 O2 Delivery Room air 11/04 1140 Temp 36.7 11/04 1140 Pulse 57 11/04 1140 Resp 14 11/04 1140 FiO2 21 11/04 2003 24 hour I O ending at 0700: 11/04 0700 11/03 1900 Intake Total 850 2300.00 Output Total Balance 850 2300.00 Intake, IV 1100.00 Intake, Oral 850 1200 Number Voids 3 4 Free Text Obj NotesFree Text Obj Notes:General appearance: awake, no acute distressHead/Eyes: atraumatic, normal conjunctiva/sclera, normal eyelids/periorbital area, normocephalicENT: moist mucosal membranesNeck: full range of motionCardiovascular: normal heart sounds, regular rate rhythmRespiratory: symmetric expansion, no intercostal retractionAbdomen: soft, non-tender, no distention, no guardingExtremities: no edema, no cyanosisMusculoskeletal: normal muscle massNeuro/EARLY HEAD START TEACHER: alert, oriented X 3, normal speech, no motor deficits, no sensory deficitsSkin: dry, intact, normal color, normal temperature, no rashPsychiatry: normal affect Discharge Instructions PCPPCP follow-up:PCP: Javi Cuadra MD Additional Discharge Routines: Shell Sieve Operator Follow-UpTime spent: Time spent on patient care (minutes): 35 Quality: Discharge Advanced Care Plan 65 or OlderDiscussed with: patient Current MedicationsCurrent medication review:I attest that the foregoing medication list in the medical record is true, accurate, and complete to the best of my knowledge. at 1354 RPT #: [id number] OF REPORT DSDischarge fguapqp5122-36-57X03:47:00L.[id number] ailable for patient rxdrBPIRVSHXAFFBCV3738-00-95J66:54:25 [facility] 2022-11-03 18:33:00 [id number]/IpeSFRn Pj6yBnVVpUaK/mZ7J55WZj/6kFCyD bffFkzvycBgJDYlmHWGCtBUJn1l6644-89-22I44:33:00 [facility])Hospitalist Progress NoteREPORT#:[id number] REPORT STATUS: SignedDATE:11/03/22 TIME:1832 PATIENT: DAVID BELLO HQLONNIE Hernandez UNIT #: [id number]#: [id number] [address] AGE: 42 SEX: F ATTEND: Bj Oneal [facility] AUTHOR: Bj Oneal MD * ALL edits or amendments must be made on the electronic/computer document * SubjectiveChief complaint:Flank pain Free Text Subj NotesFree Text Subj Notes:Feels well today. Denies flank pain except sometimes with movement. Objective GeneralVS/I O:Vital Signs: Date Time Temp Pulse Resp B/P B/P Pulse O2 O2 Flow FiO2 Mean Ox Delivery Rate 11/03 1605 36.7 59 16 148/85 105.7 98 Room air 11/03 1258 96 Room air 11/03 1142 36.7 55 15 150/86 107.7 96 Room air 11/03 0752 52 15 155/87 109.8 11/03 0750 37.0 52 15 170/88 115.2 99 Room air 11/03 0348 36.4 56 18 161/85 110.3 99 11/02 2331 36.9 57 18 156/75 102.2 97 11/02 2022 37.0 52 18 176/90 118.5 98 11/02 1918 96 Room air 21 24 hour I O ending at 0700: 11/03 0700 11/02 1900 Intake Total 240 500 Output Total Balance 240 500 Intake, Oral 240 500 Number Voids 3 1 PATIENT WEIGHT: Weight (lb): Weight (oz): Weight (kg): 98.636 Free Text Obj NotesFree Text Obj Notes:General appearance: awake, no acute distressHead/Eyes: atraumatic, normal conjunctiva/sclera, normal eyelids/periorbital area, normocephalicENT: moist mucosal membranesNeck: full range of motionCardiovascular: normal heart sounds, regular rate rhythmRespiratory: symmetric expansion, no intercostal retractionAbdomen: soft, non-tender, no distention, no guardingExtremities: no edema, no cyanosisMusculoskeletal: normal muscle massNeuro/EARLY HEAD START TEACHER: alert, oriented X 3, normal speech, no motor deficits, no sensory deficitsSkin: dry, intact, normal color, normal temperature, no rashPsychiatry: normal affect Diagnosis, Assessment Plan Free Text DxA P NotesFree text DxA P notes: 1. Complicated ESBL urinary tract infection with 1.8 cm right renal stoneNo evidence of obstruction or sepsis. Creatinine 1.3 on admission and improved with fluids. No gross hematuria.Received ceftriaxone but urine culture grew ESBL E. coli so switched to UnasynDiscussed with Urology. Conservative management for now and will plan for outpatient procedure to remove stone after antibiotic course is completed.Plan for IV Unasyn for 1 day per sensitivities and will discharge home tomorrow with prolonged course of Augmentin if tolerates 2. Acute kidney injury - resolvedNo evidence of obstruction on CTFollows with Dr. Chicas in clinic so consulted him 3. History of Graves' disease status post thyroidectomy atient is not sure of her levothyroxine dose and has not been able to swallow her tablets due to nauseaTSH elevated this admissionReceived IV levothyroxine then switched to home po 125 mcgHas follow-up with endocrinology 4. History of diabetes mellitusPatient is unsure of her home medications but will ztpahuZ6p 6.5SSI Quality: Gen Med Crit Care VTE ProphylaxisVTE prophylaxis initiated: yes Current MedicationsCurrent medication review:I attest that the foregoing medication list in the medical record is true, accurate, and complete to the best of my knowledge. Advanced Care Plan 65 or OlderDiscussed with: patient at 1838 [facility] #: [id number] OF REPORT PRProgress rahq1213-42-07O54:33:00L.[id number] able for patient bvoeLLBYHOVLBMIXZP8103-40-48I69:38:55 [facility] 2022-11-03 16:35:00 [id number]+/+6 l6y0QB7thl7w+oOR+HmD/vr1NRSK9 t2/DRZfHmFli2jEahSiEWjZT27s1897-29-86T09:35:00 [facility] HospitalUrology Progress NoteREPORT#:[id number] REPORT STATUS: SignedDATE:11/03/22 TIME:1635 PATIENT: DAVID BELLO HQIRRO N UNIT #: [id number]#: [id number] [address] [birth year] AGE: 42 SEX: F ATTEND: Bj Oneal [facility] AUTHOR: Brett Rodriguez MD * ALL edits or amendments must be made on the electronic/computer document * SubjectiveChief complaint:complicated utirenal stoneComments:no acute eventsflank pain improvingdenies dysuria Objective GeneralVS/I O:Last Documented: Result Date Time Pulse Ox 98 11/03 1605 B/P 148/85 11/03 1605 B/P Mean 105.7 11/03 1605 O2 Delivery Room air 11/03 1605 Temp 98.1 11/03 1605 Pulse 59 11/03 1605 Resp 16 11/03 1605 FiO2 21 11/02 1918 24 hour I O ending at 0700: 11/03 0700 11/02 1900 Intake Total 240 500 Output Total Balance 240 500 Intake, Oral 240 500 Number Voids 3 1 PATIENT WEIGHT: Weight (lb): Weight (oz): Weight (kg): 98.636 Physical ExamGeneral appearance: alert, awake, orientedRespiratory: aerating well, symmetric expansionAbdomen: soft, no guarding, no rebound, no distention Diagnosis, Assessment PlanHospital course to date:A: complicated utirenal calculi, large on right P: culture noted, esbl ecolicontinue xwill need clinic follow up to arrange treatment of stone after clearance of infection at 1636 RPT #: [id number] OF REPORT PRProgress xxwq5110-80-62I09:35:00L.[id number] able for patient ozupOQNALHPNJUDZDL5710-64-36I50:37:03 [facility] 2022-11-03 14:42:00 [id number]/+R1knz8 7XiU1lrlFmaeFVSP1h1kOKlj6Ndpb ABeuTSlJRjR0SOqLmEj/9J7IJdk7416-99-87Z51:42:00 [facility] HospitalNephrology Progress NoteREPORT#:[id number] REPORT STATUS: SignedDATE:11/03/22 TIME:1442 PATIENT: DAVID BELLO HQLONNIE Hernandez UNIT #: [id number]#: [id number] [address] [birth year] AGE: 42 SEX: F ATTEND: Bj Oneal [facility] AUTHOR: Arash Rivera MD * ALL edits or amendments must be made on the electronic/computer document * SubjectiveHPI:42 yo female with history of HTN, DM, previou episodes of UTI, hypothyrodism, kidney stones, pericardial effusion, s/p pericardiocenthesis, presented to ER c/o cough. Patient fount to have renal failure, and UTI.Patient has hitory of kidney stone, s/p resection; and CKD stage 2 to 3. Renal is consulted for evaluation of renal failure. Comments:Denies shortness of breath, chest pain Review of Systems Free Text ROS NotesFree Text ROS Notes:10 points review of systems performed and documented in subjective, otherwise negative. Objective GeneralVS/I O:Vital Signs: Date Time Temp Pulse Resp B/P B/P Pulse O2 O2 Flow FiO2 Mean Ox Delivery Rate 11/03 1258 96 Room air 08/12 1142 36.7 55 15 150/86 107.7 96 Room air 11/03 0752 52 15 155/87 109.8 11/03 0750 37.0 52 15 170/88 115.2 99 Room air 11/03 0348 36.4 56 18 161/85 110.3 99 11/02 2331 36.9 57 18 156/75 102.2 97 11/02 2023 37.0 52 18 176/90 118.5 98 11/02 1918 96 Room air 21 11/02 1608 37.0 54 15 152/69 96.5 98 Room air 24 hour I O ending at 0700: 11/03 0700 11/02 1900 Intake Total 240 500 Output Total Balance 240 500 Intake, Oral 240 500 Number Voids 3 1 MedicationsActive Meds + DC'd Last 24 HrsAmpicillin Sodium/Sulbactam Sodium (UNASYN 1.5 GM) 1.5 GM Q6H IV Sodium Chloride (0.9% Sodium Chloride) 50 MLLosartan Potassium (COZAAR) 25 MG DAILY PO Ampicillin Sodium/Sulbactam Sodium (UNASYN 1.5 GM) 1.5 GM Q6HR IV (DC) Sodium Chloride (0.9% Sodium Chloride) 50 MLLevothyroxine Sodium (SYNTHROID) 125 MCG DAILY@0600 PO Hydralazine HCl (APRESOLINE) 5 MG Q6H PRN PRN IV Ceftriaxone Sodium (ROCEPHIN) 2,000 MG Q24H IV (DC) Sterile Water (WATER FOR INJECTION) 20 MLDextrose/Water (DEXTROSE 10% IN WATER 250 ML) 250 ML ASDIR IV Glucagon (GLUCAGON) 1 MG ASDIR PRN IM Levothyroxine Sodium (SYNTHROID INJECTION) 100 MCG DAILY IV (DC) Sodium Chloride (SODIUM CHLORIDE 0.9%) 5 ML DAILY IV Morphine Sulfate (morphine Sulfate) 1 MG Q6H PRN PRN IV Ondansetron HCl (ZOFRAN) 4 MG Q6H PRN PRN IV Lactated Ringer's (LACTATED RINGERS) 1,000 ML .Q10H IV Insulin Human Lispro (HUMALOG) 0 AC HS SUBQ (DC) Physical ExamGeneral appearance: awakeHead/eyes: normocephalicENT: normal noseNeck: no JVD C-Spine clearance: no midline tendernessCardiovascular: no murmurRespiratory: clear to auscultationAbdomen: non-tender, softGenitourinary: no bladder distentionExtremities: non-tenderMusculoskeletal: full range of motionNeuro/EARLY HEAD START TEACHER: normal speech ResultsFindings/Data:Laboratory Tests 11/03 11/02 0459 1606 Chemistry Sodium (134 - 147 mmol/L) 139 Potassium (3.4 - 5.0 mmol/L) 3.4 Chloride (100 - 108 mmol/L) 104 Carbon Dioxide (21 - 32 mmol/L) 31 Anion Gap (4.0 - 15.0 GAP calc) 4.0 BUN (7 - 18 MG/DL) 7 Creatinine (0.6 - 1.0 MG/DL) 0.9 Glomerular Filtr Rate (>60 estGFR) >=60 max estimate Glucose (70 - 110 MG/DL) 101 POC Glucose (70 - 110 mg/dL) 142 H Calcium (8.5 - 10.1 MG/DL) 8.1 L Diagnosis, Assessment PlanFree Text A P:1. SHER on CKD stage 2 to 3l. Creat 0.9 from 1.3Outpatient creat 0.99 on . HTN. 3. DM. 4. Complicated UTI. 5. Kidney stone. 1.8 cm caclulus in the lower pole of the right kidney, on CT scan.6. Hypokalemia.Recommendations:: Taper off IV fluids once patient tolerate p.o. Avoid NSAID.11/02: LR 100 ml/hour. Taper off IV fluids once patient tolerate p.o. Avoid NSAID. 11/01: Continue LR 75 ml/hour. AVoid NSAID. Urine studies. Drug dose adjustment GFR. Thank you for the consultation, any question please call [phone] at 1443 RPT #: [id number] OF REPORT PRProgress gpaw0930-01-86Q73:42:00L.[id number] able for patient pmnzVCOSVDIUMWZAZS5768-25-24R16:43:54 [facility] 2022-11-02 22:45:00 [id number]/6g0U1s 3SiMrT+Cwq9l4Pp+CLxU7/wn90O7m sG4aEc5HzbUe2pA0x0bw1UFJm390050-38-98D01:45:00 [facility] HospitalHospital[facility] Progress NoteREPORT#:[id number] REPORT STATUS: SignedDATE:11/02/22 TIME:2244 PATIENT: DAVID BELLO HQIRRO David UNIT #: [id number]#: [id number] [address] [birth year] AGE: 42 SEX: F ATTEND: Bj Oneal [facility] AUTHOR: Bj Oneal MD * ALL edits or amendments must be made on the electronic/computer document * SubjectiveChief complaint:Flank pain Free Text Subj NotesFree Text Subj Notes:Says her R flank pain is much better. Fatigue is slowly improving. Tolerating oral intake. Evaluated by Urology. Objective GeneralVS/I O:Vital Signs: Date Time Temp Pulse Resp B/P B/P Pulse O2 O2 Flow FiO2 Mean Ox Delivery Rate 11/02 2022 37.0 52 18 176/90 118.5 98 11/02 1918 96 Room air 11/02 1608 37.0 54 15 152/69 96.5 98 Room air 11/02 1125 36.8 54 15 148/75 0.0 89 Room air 11/02 0727 97 Room air 11/02 0709 36.6 53 15 148/83 104.3 98 Room air 11/02 0407 36.5 52 18 153/81 105.3 97 11/01 2341 37.0 52 18 150/79 102.3 98 24 hour I O ending at 0700: 11/02 0700 11/01 1900 Intake Total Output Total Balance Number Voids 3 Patient 98.636 kg Weight Weight Stated/Reported Measurement Method PATIENT WEIGHT: Weight (lb): Weight (oz): Weight (kg): 98.636 Free Text Obj NotesFree Text Obj Notes:General appearance: awake, no acute distressHead/Eyes: atraumatic, normal conjunctiva/sclera, normal eyelids/periorbital area, normocephalicENT: moist mucosal membranesNeck: full range of motionCardiovascular: normal heart sounds, regular rate rhythmRespiratory: symmetric expansion, no intercostal retractionAbdomen: soft, non-tender, no distention, no guardingExtremities: no edema, no cyanosisMusculoskeletal: normal muscle massNeuro/EARLY HEAD START TEACHER: alert, oriented X 3, normal speech, no motor deficits, no sensory deficitsSkin: dry, intact, normal color, normal temperature, no rashPsychiatry: normal affect Diagnosis, Assessment Plan Free Text DxA P NotesFree text DxA P notes: 1. Complicated urinary tract infection with 1.8 cm right renal stoneNo evidence of obstruction or sepsis. Creatinine 1.3 on admission. No gross hematuria.IV ceftriaxone day 2Follow-up urine cultureOn IV fluidsDiscussed with Urology. Conservative management for now and will plan for outpatient procedure to remove stone after antibiotic course is completed. 2. Acute kidney injury - resolvedNo evidence of obstruction on CTFollows with Dr. Chicas in clinic so consulted him 3. History of Graves' disease status post thyroidectomy atient is not sure of her levothyroxine dose and has not been able to swallow her tablets due to nauseaTSH elevated this admissionReceived IV levothyroxine then switched to home po 125 mcgHas follow-up with endocrinology 4. History of diabetes mellitusPatient is unsure of her home medications but will njmtttV3k 6.5SSI Quality: Gen Med Crit Care VTE ProphylaxisVTE prophylaxis initiated: yes Current MedicationsCurrent medication review:I attest that the foregoing medication list in the medical record is true, accurate, and complete to the best of my knowledge. Advanced Care Plan 65 or OlderDiscussed with: patient at 2248 RPT #: [id number] OF REPORT PRProgress suvp0932-47-19Q21:45:00L.[id number] able for patient zkojZFLLMISAQHKOPJ2058-22-12K00:48:23 [facility] 2022-11-02 15:39:00 [id number] oO7Ts4fFrz/lpqLGGRKzQUHmdjnCW TXp8JVVyJch9NPQ89pNW92OMWyC9028-69-01K09:39:11425 1-0037 [facility] [place] [address] [place] [address] PATIENT NAME: DAVID BELLO HQIRRO N ADMIT DATE: 11/01/22ACCOUNT NO: [id number] ROOM NO: [facility] AGE: 42 REPORT TYPE: CONSULTATION SEX: F ADMITTING PHYSICIAN: Bj Oneal MD ATTENDING PHYSICIAN: Bj Oneal MD CONSULTATION DATE: 11/02/2022 CONSULTING PHYSICIAN: Brett Rodriguez MD REQUESTING PHYSICIAN: Bj Oneal MD REASON FOR CONSULTATION REQUEST: Kidney stone, complicated UTI. HISTORY OF PRESENT ILLNESS: Ms. Bello is a 42-year-old female who has a history of urolithiasis, chronic renal insufficiency. She is under care of Nephrology. She reports undergoing urologic procedure several years ago in [place] and does not have an established urologist locally. She presented secondary to fevers, malaise, right-sided flank pain. She went to Urgent Care first. She had UTI and was discharged, but her symptoms worsened. She came here and was found to have continued infection. CT imaging also shows a nonobstructing large right renal stone. There are findings of air in the renal pelvis, air in the bladder. She is diabetic. She reports occasional dysuria. She denies and hematuria. REVIEW OF SYSTEMS: Positive for fevers and chills. Positive for nausea. No vomiting. No chest pain or shortness of breath. Positive for cough. Positive for dysuria. No gross hematuria. Otherwise, negative 10-point review of systems. PAST MEDICAL HISTORY:1. Diabetes.2. Hypertension.3. Chronic renal insufficiency. PAST SURGICAL HISTORY: Kidney stones procedures. SOCIAL HISTORY: Negative x3. FAMILY HISTORY: Reviewed and noncontributory. PHYSICAL EXAMINATION:VITAL SIGNS: T-max of 98.2, pulse 54, and blood pressure 148/75.GENERAL: The patient not in acute distress, alert and oriented.HEENT: Atraumatic, normocephalic. EOMI.NECK: Supple. Trachea is midline.LUNGS: Normal respiratory effort, nonlabored breathing.ABDOMEN: Soft. No rebound or guarding. No CVA tenderness. PATIENT NAME: DAVID BELLO EXTREMITIES: No clubbing, cyanosis or edema. PERTINENT LABORATORY DATA: White count 5, hemoglobin count of 12.4. Creatinineof 0.9 with BUN of 10. Her urinalysis shows positive nitrite, positive rbc's and wbc's. Microbiology is showing gram-negative rods. PERTINENT IMAGING: A CT scan obtained yesterday shows 1.8 cm calculus in the lower pole of the right kidney with surrounding infection and inflammatory changes, likely represents a gas-forming organism infection. Some gas was present in the bladder. ASSESSMENT AND PLAN: The patient with complicated UTI, nonobstructing renal stone, the amount of air in the bladder and in the renal pelvis is minute and clinically the patient is responding well to broad-spectrum antibiotics. Urine culture is positive. We recommended to continue with antibiotic therapy, presumed for an extended course for pyelonephritis, at least 2 weeks. I discussed that she will need to see me in the office after antibiotic therapy toarrange for followup procedure to address her stone. The stone may be the underlying etiology for recurrent infections. Dictated By: Brett Rodriguez MD Date Dictated: 11/02/2022 15:39:24Date Transcribed: 11/02/2022 16:22:00PPH/SUBJob #: [id number] ID: [id number] by Brett Rodriguez MD On 11/05/2022 11:29:13 PM at 1129 PATIENT NAME: DAVID BELLO :22:00L.ME [id number] for patient fndrQGPSQOVKQGMQBX8013-18-70E37:29:53 [facility] 2022-11-02 12:26:00 [id number] 8OsMtq7Uk8oWlEgeakWw5X9lRJn60 CmeN6WJVfJj0440xhbQFwoVJZq74809-14-64G71:26:00 [facility] [place] ([facility])Nephrology Progress NoteREPORT#:[id number] REPORT STATUS: SignedDATE:11/02/22 TIME:1226 PATIENT: DAVID BELLO HQMOJGANO David UNIT #: [id number]#: [id number] [address] [birth year] AGE: 42 SEX: F ATTEND: Bj Oneal [facility] AUTHOR: Arash Rivera MD * ALL edits or amendments must be made on the electronic/computer document * SubjectiveHPI:42 yo female with history of HTN, DM, previou episodes of UTI, hypothyrodism, kidney stones, pericardial effusion, s/p pericardiocenthesis, presented to ER c/o cough. Patient fount to have renal failure, and UTI.Patient has hitory of kidney stone, s/p resection; and CKD stage 2 to 3. Renal is consulted for evaluation of renal failure. Comments:Denies shortness of breath, chest pain. Review of Systems Free Text ROS NotesFree Text ROS Notes:10 points review of systems performed and documented in subjective, otherwise negative. Objective GeneralVS/I O:Vital Signs: Date Time Temp Pulse Resp B/P B/P Pulse O2 O2 Flow FiO2 Mean Ox Delivery Rate 11/02 1125 36.8 54 15 148/75 0.0 89 Room air 11/02 0727 97 Room air 11/02 0709 36.6 53 15 148/83 104.3 98 Room air 11/02 0407 36.5 52 18 153/81 105.3 97 11/01 2341 37.0 52 18 150/79 102.3 98 11/01 2059 98 Room air 11/01 2000 36.7 58 16 151/91 110.9 99 11/01 1948 71 16 180/86 117 99 Room air 11/01 1430 50 17 183/82 115 97 Room air 11/01 1300 54 18 183/84 117 99 Room air 24 hour I O ending at 0700: 11/02 0700 11/01 1900 Intake Total Output Total Balance Number Voids 3 Patient 98.636 kg Weight Weight Stated/Reported Measurement Method MedicationsActive Meds + DC'd Last 24 HrsCeftriaxone Sodium (ROCEPHIN) 2,000 MG Q24H IV Sterile Water (WATER FOR INJECTION) 20 MLDextrose/Water (DEXTROSE 10% IN WATER 250 ML) 250 ML ASDIR IV Glucagon (GLUCAGON) 1 MG ASDIR PRN IM Levothyroxine Sodium (SYNTHROID INJECTION) 100 MCG DAILY IV Sodium Chloride (SODIUM CHLORIDE 0.9%) 5 ML DAILY IV Morphine Sulfate (morphine Sulfate) 1 MG Q6H PRN PRN IV Ondansetron HCl (ZOFRAN) 4 MG Q6H PRN PRN IV Lactated Ringer's (LACTATED RINGERS) 1,000 ML .Q10H IV Insulin Human Lispro (HUMALOG) 0 AC HS SUBQ Sodium Chloride (0.9% Sodium Chloride) 1,000 ML .[id number] IV (DC) Ceftriaxone Sodium (ROCEPHIN) 1,000 MG X1ED STA IV (DC) Sterile Water (WATER FOR INJECTION) 10 MLSodium Chloride (0.9% Sodium Chloride) 50 ML .STK-MED ONE IV (DC) Iopamidol (ISOVUE-300) 0 .STK-MED ONE .ROUTE (DC) Physical ExamGeneral appearance: awakeHead/eyes: normocephalicENT: normal noseNeck: no JVD C-Spine clearance: no midline tendernessCardiovascular: no murmurRespiratory: clear to auscultationAbdomen: non-tender, softGenitourinary: no bladder distentionExtremities: non-tenderMusculoskeletal: full range of motionNeuro/EARLY HEAD START TEACHER: normal speech ResultsFindings/Data:Laboratory Tests 11/02 11/02 11/02 1127 0708 0428 Chemistry POC Glucose (70 - 110 mg/dL) 139 H 98 Hemoglobin A1c (0.0 - 5.7 % A1C) 6.5 H Estim Average Glucose (MG/DLest) 140 11/028 3 Chemistry Sodium (134 - 147 mmol/L) 137 Potassium (3.4 - 5.0 mmol/L) 3.5 Chloride (100 - 108 mmol/L) 105 Carbon Dioxide (21 - 32 mmol/L) 28 Anion Gap (4.0 - 15.0 GAP calc) 4.0 BUN (7 - 18 MG/DL) 10 Creatinine (0.6 - 1.0 MG/DL) 0.9 Glomerular Filtr Rate (>60 estGFR) >=60 max estimate Glucose (70 - 110 MG/DL) 100 POC Glucose (70 - 110 mg/dL) 86 Calcium (8.5 - 10.1 MG/DL) 8.0 L Total Bilirubin (0.2 - 1.2 MG/DL) 0.30 AST (15 - 37 Unit/L) 18 ALT (12 - 78 Unit/L) 25 Total Alk Phosphatase (45 - 117 Unit/L) 59 Total Protein (6.4 - 8.2 G/DL) 6.9 Albumin (3.4 - 5.0 G/DL) 2.7 L Globulin (GM/dL) 4.2 Albumin/Globulin Ratio (1.2 - 2.2 RATIO) 0.6 L Laboratory Tests 11/01 1601 Urines Urine Color (YEL/STRAW discript) STRAW Urine Appearance (CLEAR discript) CLOUDY H Urine pH (5.0 - 7.0 pH UNITS) 5.5 Ur Specific [place] (1.005 - 1.030 SG) 1.015 Urine Protein (NEG mg/dL) TRACE H Urine Glucose (UA) (NEG mg/dL) NEGATIVE Urine Ketones (NEG mg/dL) TRACE Urine Blood (NEG mg/DL) 1+ H Urine Nitrite (NEG SCREEN) POSITIVE H Urine Bilirubin (NEG mg/dL) NEGATIVE Urine Urobilinogen (<2.0 mg/dL) 0.2 Ur Leukocyte Esterase (NEGATIVE Leuk/mcL) 2+ H Urine RBC (0 - 3 #RBC/HPF) 3-5 H Urine WBC (0 - 3 #WBC/HPF) 30-40 H Ur Squamous Epith Cells (NONE /HPF) 1+ H Urine Bacteria (NONE - TRACE /HPF) 2+ H Urine Culture Screen (Culture CHK Criteria) YES,WBC>10 EPI<25 Radiology data:Recent Impressions:CAT SCAN - CT ABD PELVIS W/CONT 11/01 1501 Report Impression - Status: SIGNED Entered: 11/01/2022 7503 IMPRESSION: ABDOMEN AND PELVIS: Large 1.8 cm calculus in the lower pole of theright kidney with surrounding infection/inflammatory changes. Gasbubbles likely represent gas-forming organism from infection. Some gas also present in the bladder, likely representing additionalfindings of infection. Left kidney intact. No acute bowel loop abnormality. CHEST with no evidence of infiltrate. Small to moderate pericardialeffusion possibly trace left pleural effusion. No infiltrates. Location: [id number] By: Paola Ramos M.D.CAT SCAN - CT CHEST W/CONTRAST 11/01 1501 Report Impression - Status: SIGNED Entered: 11/01/2022 1527 IMPRESSION: ABDOMEN AND PELVIS: Large 1.8 cm calculus in the lower pole of theright kidney with surrounding infection/inflammatory changes. Gasbubbles likely represent gas-forming organism from infection. Some gas also present in the bladder, likely representing additionalfindings of infection. Left kidney intact. No acute bowel loop abnormality. CHEST with no evidence of infiltrate. Small to moderate pericardialeffusion possibly trace left pleural effusion. No infiltrates. Location: [id number] By: Paola Ramos M.D.CAT SCAN - CT HEAD/BRAIN W/O CONT 11/01 1501 Report Impression - Status: SIGNED Entered: 11/01/2022 1518 IMPRESSION:1. No acute finding identified.2. Otherwise unremarkable head CT.Impression By: Curtis Mcneill M.D. Diagnosis, Assessment PlanFree Text A P:1. SHER on CKD stage 2 to 3l. Creat 0.9 from 1.3Outpatient creat 0.99 on . HTN. 3. DM. 4. Complicated UTI. 5. Kidney stone. 1.8 cm caclulus in the lower pole of the right kidney, on CT scan. Recommendations:11/02: LR 100 ml/hour. Taper off IV fluids once patient tolerate p.o. Avoid NSAID. 11/01: Continue LR 75 ml/hour. AVoid NSAID. Urine studies. Drug dose adjustment GFR. Thank you for the consultation, any question please call [phone] at [phone] [facility] #: [id number] OF REPORT PRProgress [id number]:26:00L.[id number] able for patient gobqPBZKRPTHLXUWMN0765-12-40O24:00:07 [facility] 2022-11-01 21:39:00 [id number]/80uRMr5NY0 gG+MTvx/3EKqw/iyD37dE7Nmea03241-87-52E68:39:00 [facility] ([facility])Hospitalist History PhysicalREPORT#:[id number] REPORT STATUS: SignedDATE:11/01/22 TIME:2138 PATIENT: DAVID BELLO HQIRRO N UNIT #: [id number]#: [id number] [address] [birth year] AGE: 42 SEX: F ATTEND: Bj Oneal [facility] AUTHOR: Bj Oneal MD * ALL edits or amendments must be made on the electronic/computer document * History of Present Illness HPIChief complaint:Flank painPCP:PCP: Javi Cuadra MD HPI:Mrs. Bello is a 42-year-old -[place]yp[place] woman who presents with flank pain and fatigue. Started feeling ill about 4 days ago with nausea, diaphoresis, sharp right-sided flank pain, and generalized weakness. She says she has had multiple kidney stones in the past requiring intervention by urology in 2019. She does not know what kind of stones they were but likely calcium based. No known etiology per patient. She does not take calcium or vitamin D supplements. She does have an autoimmune history of Graves' disease status post thyroidectomy 2 years ago and is on T4 replacement. She also endorses history of diabetes mellitus. Her mother has had similar issues with kidney stones as well. She denies alcohol or tobacco use. She was diagnosed with a UTI 3 monthsago and completed a course of cephalexin (urine culture at that time grew E. coli). HistoryPast medical history:Reports: Diabetes mellitus, Hypertension, Kidney disease/stones. Past surgical history:Reports: Thyroidectomy. Additional surgical history:reviewed. Kidney stone resetion.Additional family history:Mother with kidney stonesAlcohol use: Denies EtOH useDrug use: Denies recreational drugsSmoking status for patients 13 years old or older: Unknown,if ever smoked Medication/Allergy-Vaccine HxAllergies:Coded Allergies:sumatriptan (From IMITREX) (ITCHY 08/30/21) Objective Free Text Obj NotesFree Text Obj Notes:General appearance: awake, no acute distressHead/Eyes: atraumatic, normal conjunctiva/sclera, normal eyelids/periorbital area, normocephalicENT: moist mucosal membranesNeck: full range of motionCardiovascular: normal heart sounds, regular rate rhythmRespiratory: symmetric expansion, no intercostal retractionAbdomen: soft, non-tender, no distention, no guardingExtremities: no edema, no cyanosisMusculoskeletal: normal muscle massNeuro/EARLY HEAD START TEACHER: alert, oriented X 3, normal speech, no motor deficits, no sensory deficitsSkin: dry, intact, normal color, normal temperature, no rashPsychiatry: normal affect Diagnosis, Assessment Plan Code Status/Resusc. DiscussionResuscitation discussion: Discussed with: patientCode status: full code Free Text DxA P NotesFree Text DxA P Notes: 1. Complicated urinary tract infection with 1.8 cm right renal stoneNo evidence of obstruction or sepsis. Creatinine 1.3 on admission. No gross hematuria.IV ceftriaxone day 1Follow-up urine cultureStart IV fluidsDiscussed with urology Dr. Wetzel 2. Acute kidney injuryNo evidence of obstruction on CTMonitor BMP on IV fluidsFollows with Dr. Chicas in clinic so will consult him 3. History of Graves' disease status post thyroidectomy atient is not sure of her levothyroxine dose and has not been able to swallow her tablets due to nauseaTSH elevated this admissionStart IV levothyroxine and follow-up on home doseHas follow-up with endocrinology 4. History of diabetes mellitusPatient is unsure of her home medications but will verifyCheck A1cSSI Quality: Gen Med Crit Care VTE ProphylaxisVTE prophylaxis initiated: yes Current MedicationsCurrent medication review:I attest that the foregoing medication list in the medical record is true, accurate, and complete to the best of my knowledge. Advanced Care Plan 65 or OlderDiscussed with: patient at 2152 RPT #: [id number] OF REPORT HPHistory and physical vmncidsrvtg9037-31-48J28:39:00L.[id number] AVAvailable for patient ybuzWZPYXTOHZGPWYR7799-15-88F08:52:23 [facility] 2022-11-01 20:46:00 [id number] EKrckpzOWikygBSnwoebaAGpSWZ4921-14-56I85:46:00 [facility])Nephrology Consultation NoteREPORT#:[id number] REPORT STATUS: SignedDATE:11/01/22 TIME:2045 PATIENT: DAVID BELLO UNIT #: [id number]#: [id number] [facility] AGE: 42 SEX: F ATTEND: Bj Oneal [facility] AUTHOR: Arash Rivera MD * ALL edits or amendments must be made on the electronic/computer document * History of Present IllnessReason for consult:ckdHPI:42 yo female with history of HTN, DM, previou episodes of UTI, hypothyrodism, kidney stones, pericardial effusion, s/p pericardiocenthesis, presented to ER c/o cough. Patient fount to have renal failure, and UTI.Patient has hitory of kidney stone, s/p resection; and CKD stage 2 to 3. Renal is consulted for evaluation of renal failure. History - Adult longitudinalPast medical history:Reports: Diabetes mellitus, Hypertension, Kidney disease/stones. Additional surgical history:reviewed. Kidney stone resetion. Additional family history:noncontributory. Smoking status for patients 13 years old or older: Unknown,if ever smokedMedications:Home Medications: Medication Dose/Rte/Freq Days Qty Entered Last Max Daily Dose Reviewed CEPHALEXIN (KEFLEX) 500 MG PO Q12HR 08/31/21 Strength: 500 MG CAP 0124 KETOROLAC (TORADOL) 10 MG PO 20 08/31/21 Strength: 10 MG TAB Q6H PRN PRN PAIN 0124 Current Hospital Medications:Anti-Infective Agents Sig/Mona Start time Last Medication Dose Route Stop Time Status Admin Ceftriaxone Sodium 1,000 MG X1ED STA 11/01 1633 AC 11/01 (ROCEPHIN) IV 11/02 0232 1653 Sterile Water 10 ML (WATER FOR INJECTION) Central Nervous System Agents Sig/Mona Start time Last Medication Dose Route Stop Time Status Admin Aspirin 324 MG X1ED STA 11/01 0915 DC 11/01 (ASPIRIN CHEWABLE) PO 11/01 0916 0937 Diagnostic Agents Sig/Mona Start time Last Medication Dose Route Stop Time Status Admin Iopamidol 0 .STK-MED ONE 11/01 1443 DC 11/01 (ISOVUE-300) .ROUTE 1514 Electrolytic, Caloric, And Aba Sig/Mona Start time Last Medication Dose Route Stop Time Status Admin Sodium Chloride 1,000 ML .[id number] 11/01 1730 AC (0.9% Sodium IV 11/02 1616 Chloride) Sodium Chloride 50 ML .STK-MED ONE 11/01 1515 DC 11/01 (0.9% Sodium IV 11/01 1516 1515 Chloride) Sodium Chloride 1,000 ML X1ED STA 11/01 0915 DC 11/01 (0.9% Sodium IV 11/01 1015 0937 Chloride) Gastrointestinal Drugs Sig/Mona Start time Last Medication Dose Route Stop Time Status Admin Ondansetron HCl 4 MG X1ED STA 11/01 0915 DC 11/01 (ZOFRAN) IV 11/01 0916 0937 Hormones And Synthetic Substit Sig/Mona Start time Last Medication Dose Route Stop Time Status Admin Insulin Human Lispro 0 AC HS 11/01 2100 AC (HUMALOG) SUBQ 11/02 1616 Allergies:Coded Allergies:sumatriptan (From IMITREX) (ITCHY 08/30/21) Diagnosis, Assessment Plan Free Text DxA P NotesFree Text DxA P Notes:1. SHER on CKD stage 2 to 3l. Creat 1.3Outpatient creat 0.99 on . HTN. 3. DM. 4. Complicated UTI. 5. Kidney stone. 1.8 cm caclulus in the lower pole of the right kidney, on CT scan. Recommendations: Continue LR 75 ml/hour. AVoid NSAID. Urine studies. Drug dose adjustment GFR. Thank you for the consultation, any question please call [phone] at [phone] RPT #: [id number] OF REPORT [id number]:46:00L.[id number] 205AVAvailable for patient cklqHXVBGFKYBMMPDP8721-69-67U79:07:02 [facility] 2022-11-01 10:02:00 [id number]+f /uAwrS2jYthJGvmZxjmm7Oe57mL8160-34-22F11:02:00 [facility] HospitalEMER[facility] PROVIDER REPORTREPORT#:[id number] REPORT STATUS: SignedDATE:11/01/22 TIME:1002 PATIENT: DAVID BELLO HQLONNIE N UNIT #: [id number]#: [id number] [address] [birth year] AGE: 42 SEX: F PCP PHYS: Javi Cuadra MDSERVICE AUTHOR: Teddy Fernandez MD * ALL edits or amendments must be made on the electronic/computer document * HPI-URI/Cough/Cold GeneralInitial Greet Date/Time 11/01/22 0853 PresentationChief Complaint Cough, non-productive Free Text HPI NotesFree Text HPI NotesPatient 42-year-old female present with chief concern of multiple complaints. Patient notes that she seen evaluated in outside facility urgent care yesterday. Patient had a flu COVID and strep test done. Of which were reportedly negative. Patient was given 2 intramuscular injections and notes that afterwards she began having abnormal sensations. Patient notes that she feels that she is having hallucinations of some sort saying that she is seeing objectsand seeing things. Patient is conversive. Patient denying any other acute symptoms at this time. Patient with no other acute symptoms at this time. Patient with no other acute symptoms. Review of Systems Free Text ROS NotesFree Text ROS Notes1.Constitutional: No fever, No chills, No weight loss, No fatigue2. Head: No trauma, or No Headache3. Eyes: No eye pain, No eye redness4. Ears, nose, mouth, throat: no sore throat, no ear pain, no tooth pain, no nasal congestion5. Cardiovascular: no chest pain or discomfort, no palpitations6. Respiratory: no vskomzliy-cc-ytwzbe, no cough7. GI: No nausea, no vomiting, no diarrhea, no constipation, no abdominal pain8 .: Denies dysuria, No hematuria, denies flank pain, denies reproductive organ pain/discomfort8. Musculoskeletal: no muscle pain, no swelling9. Skin: No rash, no apjujsq73. Neurologic: No weakness or numbness.11.Back: No Back Pain, No back erxipt09. Psychiatric: No suicidal ideation, No homicidal Ideation, no hallucinations Past Medical History - AdultStated Complaint VOMITING, PAIN WITH URINATION,WEAKAllergiesCoded Allergies:sumatriptan (From IMITREX) (ITCHY 08/30/21) Home MedicationsDiscontinued ScriptsCEPHALEXIN (KEFLEX) 500 MG PO Q12HR CEPHALEXIN (KEFLEX) 500 MG PO Q12HR #20 CAPS Prov: 08/31/21 DC: 11/01/22 214 Change of medicationKETOROLAC (TORADOL) 10 MG PO Q6H PRN PRN PAIN KETOROLAC (TORADOL) 10 MG PO Q6H PRN PRN PAIN #20 TABS Prov: 08/31/21 DC: 11/01/22 2141 Change of medication Reported MedicationsSEMAGLUTIDE (OZEMPIC PEN (4 MG/3mL)) 1 MG SUBQ Q7D LOSARTAN (COZAAR) 25 MG PO DAILY 1800 LEVOTHYROXINE (SYNTHROID) 125 MCG PO DAILY 0700 Calculated Suicide Risk (nurs) No riskPt reports no significant: Past medical history, Past surgical history, Family historySmoking status for patients 13 years old or older: Unknown,if ever smoked Physical Exam Vital SignsVital SignsFirst Documented: Result Date Time Pulse Ox 100 11/01 0910 B/P 148/82 11/01 0810 B/P Mean 104 11/01 0810 O2 Delivery Room air 11/01 909 Temp 36.7 11/01 909 Pulse 66 11/01 0910 Resp 19 11/01 909 Last Documented: Result Date Time Pulse Ox 97 11/01 1430 B/P 183/82 11/01 1430 B/P Mean 115 11/01 1430 O2 Delivery Room air 11/01 143 Pulse 50 11/01 143 Resp 17 11/01 143 Temp 36.7 11/01 0910 Review of Vital Signs Reviewed Free Text PE NotesFree Text PE NotesGeneral Appearance: Alert, Oriented, Resting Comfortably, No Apparent DistressEyes: Normal Inspection, PERRL, EOMIHead Ears Nose and Throat: Normocephalic, Atraumatic, Normal ENT inspectionNeck: Supple, Normal InspectionLymphatic: No lymphadenopathyRespiratory: Lungs Clear to auscultation bilaterallyCardiovascular: Regular Rate, Regular Rhythm, No Murmur, No RubsPeripheral Pulses: DP/PT pulses normal bilaterally Normal: Left Carotid, Lower Extremities, Right CarotidAbdomen: Soft, Non-Tender, Non-Distended, Normal Bowel Sounds, No Organomegaly,No GuardingExtremities: No Clubbing, No Cyanosis, No EdemaPsych/Mental Status: Normal AffectNeurologic: Alert, Oriented to Person, Oriented to Place, Oriented to Time, Cranial Nerves II - XII Intact, Follows commandsMotor/Sensory: No Motor Deficit, No Sensory DeficitSkin: Warm/Dry, Normal Color, No Rashes Interpretation Diagnostics Lab Results InterpretationConsiderations Independ review imagingResultsLaboratory Tests 11/01/22 0943:[Embedded Image Not Available]Laboratory Tests: 11/01 11/01 1601 0943 Chemistry Magnesium (1.8 - 2.4 MG/DL) 2.3 TSH (0.340 - 4.820 mcIU/ML) 14.900 H Urines Urine Color (YEL/STRAW discript) STRAW Urine Appearance (CLEAR discript) CLOUDY H Urine pH (5.0 - 7.0 pH UNITS) 5.5 Ur Specific [place] (1.005 - 1.030 SG) 1.015 Urine Protein (NEG mg/dL) TRACE H Urine Glucose (UA) (NEG mg/dL) NEGATIVE Urine Ketones (NEG mg/dL) TRACE Urine Blood (NEG mg/DL) 1+ H Urine Nitrite (NEG SCREEN) POSITIVE H Urine Bilirubin (NEG mg/dL) NEGATIVE Urine Urobilinogen (<2.0 mg/dL) 0.2 Ur Leukocyte Esterase (NEGATIVE Leuk/mcL) 2+ H Urine RBC (0 - 3 #RBC/HPF) 3-5 H Urine WBC (0 - 3 #WBC/HPF) 30-40 H Ur Squamous Epith Cells (NONE /HPF) 1+ H Urine Bacteria (NONE - TRACE /HPF) 2+ H Urine Culture Screen (Culture CHK Criteria) YES,WBC>10 EPI<25 11/01 11/01 0943 0605 Chemistry Sodium (134 - 147 mmol/L) 135 Potassium (3.4 - 5.0 mmol/L) 3.6 Chloride (100 - 108 mmol/L) 101 Carbon Dioxide (21 - 32 mmol/L) 30 Anion Gap (4.0 - 15.0 GAP calc) 4.0 BUN (7 - 18 MG/DL) 16 Creatinine (0.6 - 1.0 MG/DL) 1.3 H Glomerular Filtr Rate (>60 estGFR) 52 L Glucose (70 - 110 MG/DL) 148 H Calcium (8.5 - 10.1 MG/DL) 8.9 Total Creatine Kinase (26 - 192 Unit/L) 105 Troponin I High Sens (0 - 54 ng/L) 5.0 Coagulation INR (0.8 - 1.2 INR Unit) 0.96 PT Patient/Control Mix (9.3 - 12.9 SECONDS) 10.6 Hematology WBC (3.5 - 11.0 K/mm3) 5.0 RBC (4.70 - 6.10 M/mm3) 4.89 Hgb (10.4 - 14.9 G/DL) 12.4 Hct (31.5 - 44.1 %) 39.3 MCV (84.5 - 98.6 Fl) 80.4 L MCH (27.0 - 34.2 pg) 25.4 L MCHC (31.5 - 34.0 G/DL) 31.6 RDW (11.5 - 14.5 SD) 14.3 Plt Count (150 - 450 K/mm3) 322 MPV (7.0 - 10.5 fL) 11.00 H Miscellaneous Maternal Serum HCG (0 - 6 mi-IU/ML) < 1 Microbiology: Date/Time Procedure - Status Source Growth 11/01 426 MRSA Screen - COMP NASAL Recent Impressions:RADIOLOGY - XR CHEST 1 V 11/01 921 Report Impression - Status: SIGNED Entered: 11/01/2022 0952 IMPRESSION: No acute radiographic abnormalityImpression By: [email or web address] Luisa Lee M.D.CAT SCAN - CT ABD PELVIS W/CONT 11/01 1501 Report Impression - Status: SIGNED Entered: 11/01/2022 1527 IMPRESSION: ABDOMEN AND PELVIS: Large 1.8 cm calculus in the lower pole of theright kidney with surrounding infection/inflammatory changes. Gasbubbles likely represent gas-forming organism from infection. Some gas also present in the bladder, likely representing additionalfindings of infection. Left kidney intact. No acute bowel loop abnormality. CHEST with no evidence of infiltrate. Small to moderate pericardialeffusion possibly trace left pleural effusion. No infiltrates. Location: [id number] By: [email or web address] Luisa Ramos M.D.CAT SCAN - CT CHEST W/CONTRAST 11/01 1501 Report Impression - Status: SIGNED Entered: 11/01/2022 1527 IMPRESSION: ABDOMEN AND PELVIS: Large 1.8 cm calculus in the lower pole of theright kidney with surrounding infection/inflammatory changes. Gasbubbles likely represent gas-forming organism from infection. Some gas also present in the bladder, likely representing additionalfindings of infection. Left kidney intact. No acute bowel loop abnormality. CHEST with no evidence of infiltrate. Small to moderate pericardialeffusion possibly trace left pleural effusion. No infiltrates. Location: [id number] By: Paola Ramos M.D.CAT SCAN - CT HEAD/BRAIN W/O CONT 11/01 150 Report Impression - Status: SIGNED Entered: 11/01/2022 1518 IMPRESSION:1. No acute finding identified.2. Otherwise unremarkable head CT.Impression By: Curtis Mcneill M.D. Lab Imaging StatementLaboratory radiographic studies reviewed and considered in the medical decision-making. ECG #1 InterpretationText/Dict NoteEKG INTERPRETATIONRhythm: Normal sinus rhythmVentricular Rate: 67 BPMPR: 144 msQRS: 80 msQTC: 439 msAxis: NormalST elevation: NoneST depression: NoneT wave inversion(s): NoneDate 11/01/22Time 0929Interpreted by and reviewed by me, Independently interpreted, ED physician Re-Evaluation MDM Free Text MDM NotesFree Text MDM NotesPatient 39-year-old female present with chief concern of multiple complaints. Patient found to have intrarenal kidney stone that may be source of urinary tract infection. Patient was previous started on antibiotic for treatment of urinary tract infection however did not have complicating stone. There is also gas around the stone suggesting gas-forming organism as etiology of patient's infection. Patient clinically stable at this time. Given complication of UTI with patient's second visit in as many days will admit patient for treatment of urinary tract infections and to ensure that symptoms do not worsen there is worsening white blood cell count or sepsis. Patient does not appear to have evidence of sepsis or severe sepsis at this time however will be monitored for worsening signs of infection. Re-Evaluation/Progress URI/Flu Adult MDM NoteThe patient is now resting comfortably, is alert and in no distress. The patienthas a normal mental status and is neurologically intact. The patient appears well and is able to tolerate food or fluid by mouth, and there is no significantdehydration. There is no respiratory distress and no signs of systemic toxicity.The history, exam, diagnostic testing (if any) and current condition do not demonstrate an infectious process such as meningitis, severe pneumonia, retropharyngeal abscess, epiglottitis, sepsis or other serious bacterial infection requiring further testing, treatment, consultation, or admission at this time. The vital signs have been stable. The patient's condition is stable and appropriate for discharge. The patient will pursue further outpatient evaluation with the primary care physician or other designated or consulting physician as indicated in the discharge instructions. ED CourseMedication(s) OrderedMedication(s) Ordered:Hormones And Synthetic Substit Sig/Mona Start time Last Medication Dose Route Stop Time Status Admin Insulin Human Lispro 0 AC HS 11/01 2100 DC SUBQ 11/02 1616 Differential DiagnosisDifferential Diagnosis Allergic reaction, Allergic rhinitis, Asthma exacerbation, Bronchitis, Cough variant asthma, Influenza, Laryngitis, Otitis media R, Otitis media L, Pertussis, Pharyngitis, diphtheria, Pharyngitis, streptococca, Pharyngitis, viral, Pneumonia, Pneumonia, bacterial, Pneumonia, community acq, Rhinitis, allergic, Rhinitis, nonallergic, Seasonal allergy, Sinusitis, Upper resp infection, Viral syndrome MDM-ComplexityDifferential DiagnosisAs above MDM-Independent InterpretationMy Plain Film InterpretationCT head unremarkable CT abdomen and pelvis with contrast with intrarenal stone CT chest with contrast unremarkableMy Other Test InterpretationTroponin unremarkable creatinine elevated to 1.3 with GFR 52 Patient Discharge Departure Vital Signs/ConditionVital SignsFirst Documented: Result Date Time Pulse Ox 100 08/10 0910 B/P 148/82 08/10 0910 B/P Mean 104 08/10 0910 O2 Delivery Room air 08/10 0910 Temp 36.7 08/10 0910 Pulse 66 08/10 0910 Resp 19 /10 0910 Last Documented: Result Date Time Pulse Ox 97 08/10 1430 B/P 183/82 08/10 1430 B/P Mean 115 08/10 1430 O2 Delivery Room air 08/10 1430 Pulse 50 08/10 1430 Resp 17 08/10 1430 Temp 36.7 08/10 0910 All vital signs available at the time of this entry have been reviewed. Condition Stable, Improved Clinical ImpressionClinical ImpressionPrimary Impression: PyelonephritisSecondary Impressions: SHER (acute kidney injury), Hypertension, NephrolithiasisTime of Impression 172 Disposition DecisionHospitalize Hosp Physician Name Bj Oneal MD [facility] Physician Hospitalist Request Time 1721 Request Date 11/01/22 )( Accepts Hospitalization Yes )( Reason for HospitalizationUTI )( Accepted Time 172 )( Accepted Date 11/01/22 Call Information will see patient Discharge/Care PlanCounseled Regarding Diagnosis, Lab results, Imaging studies, Medication changes,Prescriptions, Need for admission Admit NoteI have spoken with the patient and/or caregivers. I have explained the patient'scondition, diagnoses and treatment plan based on the information available to meat this time. I have answered the patient's and/or caregiver's questions and addressed any concerns. The patient and/or caregivers have as good an understanding of the patient's diagnosis, condition and treatment plan as can beexpected at this point. The patient has been stabilized within the capability ofthe emergency department. The patient will be transported for further care and management or will be moved to an observation or inpatient service. I have communicated with the staff or medical practitioner taking over this patient's care. at 0810 [facility] #: [id number] OF REPORTEDEmergency department florcq5630-48-82P38:02:00L.[id number] ilable for patient mpqfYFTYIKIEHWLHUQ1157-75-52Q08:10:23 [facility] 2021-10-02 11:30:00 [id number] E6zt+oIBMJUAKdG75ZDLgTtMuABO1 arQUvEg//OMlCWY9Uz0d9K2EEqpjKH69631-50-34C56:30:0 [id number] [facility] [address] [place] [address] PATIENT NAME: KAMRAN BELLO ADMIT DATE: 09/28/21ACCOUNT NO: [id number] ROOM NO: P.0590 AGE: 41 REPORT TYPE: OPERATIVE REPORT SEX: F ADMITTING PHYSICIAN:Ron Tipton MD ATTENDING PHYSICIAN:Ron Tipton MD OPERATION DATE: 09/29/2021 PROCEDURES: Ultrasound-guided pericardiocentesis. PREPROCEDURE DIAGNOSIS: Pericardial effusion. POSTPROCEDURE DIAGNOSIS: Pericardial effusion. MECHANICAL LEAD: Jasper Hurst MD CAMPBELL: Mckenna Trevino MD TERMINAL SYSTEM OPERATOR: N/A ANESTHESIA: Moderate sedation. COMPLICATIONS: None. PROCEDURE IN DETAIL: The [facility] cardiac catheterizationlaboratory in the fasting state. The patient was identified and timeout wasperformed. Moderate sedation was carried out by trained independent personnelunder my supervision for a total period of 22 minutes. The patient's precordium was imaged before the procedure using standard cardiacultrasound probe. The region of pericardial effusion was identified as was theshortest and safest path for a pericardiocentesis. The patient was then preppedand draped in a sterile fashion. Under ultrasound guidance, Dr. Hurst placed amicropuncture needle into the lateral aspect of the pericardial space. Clearstraw-colored fluid was obtained. A micropuncture catheter was advanced and apericardial positioning was confirmed with contrast injection under ultrasoundguidance. A pericardial drainage catheter was then placed and 1 liter ofstraw-colored fluid was withdrawn. The fluid was sent for cell count, culture,stains and cytology. The catheter was then removed. There were nocomplications as results of the procedure. FINDINGS: One liter pericardial effusion, status post withdrawal withoutcomplication. Dictated By: Mckenna Trevino MD WT: OP:PJacquelineSAMREEN/DENNISSHIRLEY.07/NTSDD: 10/02/2021 11:30:26DT: 10/02/2021 12:05:38 PATIENT NAME: KAMRAN BELLO Conf#: [id number]/DID#: [id number] Authenticated and Edited by Mckenna Trevino MD On 10/02/21 1:05:08 PM at 0107 PATIENT NAME: KAMRAN BELLO urhidw8215-83-09L45:05:00P.[id number] lable for patient xgipNHKPBOTQOWCUAG5134-87-92S50:08:00 [facility] 2021-09-29 16:27:00 [id number] fdB0Vyl4BVMo6duKrilrY7GxcW5hc SdgowdcHlI6NR93X6P6aLzmhczH8/I49734-47-81C87:27:0 0 [facility] ([facility]) Non-Operative Procedure Note REPORT #: [id number] REPORT STATUS: Signed DATE: 09/29/21 TIME: 1627 PATIENT: KAMRAN BELLO UNIT #: [id number] #: [id number] ROOM #: P.0590 BED: A : 79 AGE: 41 SEX: F ATTEND: Ron Tipton MD ADM AUTHOR: Mckenna Trevino MD ATTENTION EDITS and/or ADDENDA must be made in Patient Keeper for this note. Edits and ammendments created in [employer] are not visible in Patient Keeper or the legal medical record ([facility]). -- PROCEDURE -- PRE-PROCEDURE DIAGNOSIS:Per effusion POST-PROCEDURE DIAGNOSIS:same NAME OF PROCEDURE:pericardiocentesis PERFORMED BY:MCKENNA TREVINO MD ANESTHESIA/ANALGESIA:moder -CONSCIOUS SEDATION:- CONSCIOUS SEDATION (PROVIDED BY PA) - INDEPENDENT TRAINED OBSERVER PRESENT: I supervised and directed independent trained observers who assisted inadministering medicine for moderate sedation, and monitoring thepatient #39;s level of consciousness as well as physiological statusthroughout the procedure. Duration 40 minutes. FINDINGS:1L straw colored fluid removed and sent for study without complication Signed in PatientKeeper by MCKENNA TREVINO MD on 09/29/21 at 16:29 at 1629ATTENTION EDITS and/or ADDENDA must be made in Patient Keeper for this note. Edits and ammendments created in [facility] are not visible in Patient Keeper or the legal medical record ([facility]). [facility] #: [id number] OF REPORTPRProgress uoqk8995-81-19X99:27:00P.NM-[id number] ailable for patient eetlNORXRSLWADSUJY3457-81-15I08:30:33 [facility] 2021-09-29 16:25:00 [id number]+u UeICIVEYLtetLA+/Uiur2Z/ZBr9pA uBiMIQraos3pq2JdzClv1xQIiJaL+HK8513-71-54J75:25:0 0 [facility] ([facility]) Cardiology H P REPORT #: [id number] REPORT STATUS: Signed DATE: 09/29/21 TIME: 1625 PATIENT: KAMRAN BELLO UNIT #: [id number] #: [id number] ROOM #: [facility] BED: A : 79 AGE: 41 SEX: F ATTEND: Ron Tipton MD ADM AUTHOR: Mckenna Trevino MD ATTENTION EDITS and/or ADDENDA must be made in Patient Keeper for this note. Edits and ammendments created in [employer] are not visible in Patient Keeper or the legal medical record ([facility]). -- HISTORY -- ADMISSION DATE:2021-09-28 PRIMARY CARE PROVIDER:Provider, Undefined -- ALLERGIES/HOME MEDS -- ALLERGIES:sumatriptan (Intermediate - Allergy) HOME MEDICATIONS:Levothyroxine Tab (Synthroid Tab) 125 MCG PO DAILYOZEMPIC 0.25 MG SubQ Q SATURDAY -- OBJECTIVE -- VITALS (09/28 16:26 - 09/29 16:26):Temperature F: 98.1 (98.0 - 98.1)Temperature C: 36.7Temperature source: OralPulse Rate 65 (54 - 65)Respiratory rate: 20 (13 - 20)BP: 156/93 (144/82 - 169/100)Blood pressure source: Monitor I/Os (09/28 07:00 - 09/29 07:00):Net -400Output 400 -- DATA -- LABS UR HCG QL (09/29/21 13:01)UR HCG QUAL NEGATIVE TROPI (09/29/21 06:07)TROPONIN-I < 2.5 L TROPI (09/29/21 03:19) TROPONIN-I < 2.5 L MAG (09/29/21 03:19)MAGNESIUM 2.1 COMPREHENSIVE METABOLIC PANEL (09/29/21 03:19)SODIUM 139POTASSIUM 3.4 LCHLORIDE 104CARBON DIOXIDE 30GLUCOSE 96BLOOD UREA NITROGEN 9GLOMERULAR FILTRATION RATE >=60 max estimateCREATININE 1.10 HTOTAL PROTEIN 7.5ALBUMIN 4.1CALCIUM 7.7 LBILIRUBIN TOTAL 0.5SGOT/AST 14SGPT/ALT < 7 LALKALINE PHOSPHATASE 81 CBC W/AUTO DIFF (09/29/21 03:19)WHITE BLOOD CELL 3.9L LRED BLOOD CELL 3.55 LHEMOGLOBIN 10.4L LHEMATOCRIT 31.5L LMEAN CELL VOLUME 88.7MEAN CELL HGB 29.3MEAN CELL HGB CONCENTRATION 33.0RED CELL DISTRIBUTION WIDTH 14.8PLATELET COUNT 208MEAN PLATELET VOLUME 11.4NEUTROPHIL % 39.3 LLYMPHOCYTE % 51.4 HMONOCYTE % 7.5EOSINOPHIL % 1.0BASOPHIL % 0.8NEUTROPHIL # 1.53 LLYMPHOCYTE # 2.00MONOCYTE # 0.29EOSINOPHIL # 0.04BASOPHIL # 0.03 COVID 19 INHOUS (09/28/21 23:19)COVID 19 INHOUSE AG NEGATIVE BASIC METABOLIC PANEL (09/28/21 23:04)SODIUM 138POTASSIUM 3.3L LCHLORIDE 102CARBON DIOXIDE 31GLUCOSE 127H HBLOOD UREA NITROGEN 10GLOMERULAR FILTRATION RATE >=60 max estimateCREATININE 1.00CALCIUM 7.6 L BNP (09/28/21 23:04)B-TYPE NATRIURETIC PEPTIDE 54 CBC W/AUTO DIFF (09/28/21 23:04)WHITE BLOOD CELL 3.6L LRED BLOOD CELL 3.75 LHEMOGLOBIN 10.8L LHEMATOCRIT 33.6L LMEAN CELL VOLUME 89.6MEAN CELL HGB 28.8MEAN CELL HGB CONCENTRATION 32.1 LRED CELL DISTRIBUTION WIDTH 14.9PLATELET COUNT 210MEAN PLATELET VOLUME 11.3NEUTROPHIL % 35.2 LLYMPHOCYTE % 52.9 HMONOCYTE % 8.3EOSINOPHIL % 2.5BASOPHIL % 1.1NEUTROPHIL # 1.27 LLYMPHOCYTE # 1.91MONOCYTE # 0.30EOSINOPHIL # 0.09BASOPHIL # 0.04 TROPI (09/28/21 23:04)TROPONIN-I < 2.5 L -- ASSESSMENT AND PLAN -- GENERAL ASSESSMENT:see enclosed H P. No interval change Signed in PatientKeeper by MCKENNA TREVINO MD on 09/29/21 at 16:26 at 1626ATTENTION EDITS and/or ADDENDA must be made in Patient Keeper for this note. Edits and ammendments created in [employer] are not visible in Patient Keeper or the legal medical record ([facility]). [facility] #: [id number] OF REPORTHPHistory and physical sbnirvawzpq5672-96-77T99:25:00P.GZ-YCKG07830901-6 169AVAvailable for patient utvzSHEMDPORFDQOZU9438-25-20C33:27:13 [facility] 2021-09-29 15:42:00 [id number] XnADWxyTzpmsTXeMG1t2rUOh2W4ua sH5hvsKxEj9yj7tbqKPKM7ErtUiqYaD3693-09-75T29:42:0 0 [facility] ([facility]) Pre-Sedation Assessment REPORT #: [id number] REPORT STATUS: Signed DATE: 09/29/21 TIME: 1542 PATIENT: KAMRAN BELLO UNIT #: [id number] #: [id number] ROOM #: 0590 BED: A : 79 AGE: 41 SEX: F ATTEND: Ron Tipton MD ADM AUTHOR: Mckenna Trevino MD ATTENTION EDITS and/or ADDENDA must be made in Patient Keeper for this note. Edits and ammendments created in [employer] are not visible in Patient Keeper or the legal medical record ([facility]). -- HISTORY -- AIRWAY:adequate MALLAMPATI CLASS:I ASA STATUS:3 SEDATION PLAN:Moderate RE-EVAL IMMED PRIOR TO INDUCTION:Yes Signed in PatientKeeper by MCKENNA TREVINO MD on 09/29/21 at 16:26 at 1626ATTENTION EDITS and/or ADDENDA must be made in Patient Keeper for this note. Edits and ammendments created in [facility] are not visible in Patient Keeper or the legal medical record ([facility]). RPT #: [id number] OF REPORTCLClinical ltfz3385-98-57W44:42:00P.UK-[id number] ailable for patient adrzGRGVWAECDPYIQV7749-35-76X41:27:43 [facility] 2021-09-29 09:11:00 [id number] wZZq4h5uIcXLndEbd/+3ZhQ5mYIjT OzZYf2oJg325gy1EBRtjX4eNTA5qqhq4416-37-46B11:11:0 0 [facility] ([facility]) Internal Med. H P REPORT #: [id number] REPORT STATUS: Signed DATE: 09/29/21 TIME: 910 PATIENT: KAMRAN BELLO UNIT #: [id number] #: [id number] ROOM #: [facility] BED: A : 79 AGE: 41 SEX: F ATTEND: Ron Tipton MD ADM AUTHOR: Mike Rosa APRN ATTENTION EDITS and/or ADDENDA must be made in Patient Keeper for this note. Edits and ammendments created in [facility] are not visible in Patient Keeper or the legal medical record ([facility]). -- CO-SIGNATURE -- COMMENTS:Discussed with Dr. Hurst Patient seen and examined. History taken bedside. bedsidePlan of care discussed with patient, all questions answered to her satisfactionAgree with the findings as detailed by JAMIE Devilanjona for the acute medical problems are enumerated belowTotal time spent coordinating admission care > 75 mins Signed in PatientKeeper by RON TIPTON MD on 09/30/21 at 00:15 -- HISTORY -- ADMISSION DATE:2021-09-28 PRIMARY CARE PROVIDER:Jasper Hurst MD CHIEF COMPLAINT:shortness of breath HPI:Patient is a 41 year old woman history of asthma, diabetes mellitus, Graves'disease who was initially diagnosed with a pericardial effusion last month whenincidentally seen on CT abdomen pelvis. 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 Hurst. Ultrasound showed moderate to large pericardial effusion, notamponade. Patient reports shortness of breath over the past couple of days.She was started on ibuprofen 600 mg 3 times daily, colchicine 0.6 mg twicedaily, pantoprazole 40 mg daily. Given her shortness of breath, [facility]. PAST MEDICAL HISTORY:asthma, diabetes mellitus, Graves' disease, supraventricular tachycardia PAST SURGICAL HISTORY:SVT ablationthyroidectomy FAMILY HISTORY: noncontributory -SOCIAL HISTORY- MARITAL STATUS: ADDITIONAL SOCIAL HISTORY:Occasionally smokes cigars, social alcohol use. Denies illicit drug use -- ALLERGIES/HOME MEDS -- ALLERGIES:sumatriptan (Intermediate - Allergy) HOME MEDICATIONS:Levothyroxine Tab (Synthroid Tab) 125 MCG PO DAILYOZEMPIC 0.25 MG SubQ Q SATURDAY -- SUBJECTIVE -- -REVIEW OF SYSTEMS- GENERAL: Negative for fever, malaise, fatigue.EYES: Negative for blurry vision. No diplopia.EARS/NOSE/THROAT: Negative for sore throat. No otalgia. No rhinorrhea.RESPIRATORY: Positive for dyspnea. No wheeze. No cough.CARDIOVASCULAR: Negative for chest pain or palpitations. No extremity swelling.GASTROINTESTINAL: Negative for abdominal pain or nausea. No emesis. No diarrhea.GENITOURINARY: Negative for dysuria, frequency, or urgency. No gross hematuria.MUSCULOSKELETAL: Negative for joint stiffness, pain, or arthralgias.SKIN: Negative for rashes. No pruritus.NEUROLOGICAL: Negative for headache. No vertigo. Denies paresthesias.PSYCHIATRIC: Negative for specific complaints.ENDOCRINE: Negative for cold intolerance, heat intolerance, polyphagia, polydipsia, polyuria, weight change, fatigue.HEMATALOGIC / LYMPHORETICULAR: Negative for excessive bleeding, unusual masses.ALLERGIC / IMMUNOLOGIC: Negative for heat/cold intolerance, polydipsia, or polyuria. -- OBJECTIVE -- VITALS (09/28 09:11 - 09/29 09:11):Temperature F: 98.1 (98.0 - 98.1)Temperature C: 36.7Temperature source: OralPulse Rate 65 (54 - 65)Respiratory rate: 20 (13 - 20)BP: 156/93 (144/82 - 169/100)Blood pressure source: Monitor I/Os (09/28 07:00 - 09/29 07:00):Net -400Output 400 -EXAM- GENERAL: alert and cooperative, appears comfortable. In no distress.HEAD: Normocephalic, atraumatic.EYES: PERRL, EOM intact, conjunctiva and sclera clear, without nystagmus, lids normal.EARS: normal canals, grossly normal hearing.NOSE: No deformity, no discharge, no inflammation, no lesions.MOUTH: Oropharynx without deformities or lesions, normal mucosa..NECK: No masses, no thyromegaly, no abnormal cervical nodes, trachea midline.CHEST: Grossly normal appearance.BREAST: deferredLUNGS: diminished with normal respiratory effort.HEART: Regular rate and rhythm, normal S1, S2, no murmurs, no rubs, no gallops, no clicks.ABDOMEN: Soft, non-tender, no organomegaly, no masses noted.MUSCULOSKELETAL: No deformity, no scoliosis noted of thoracic or lumbar spine, joint ROM grossly normalEXTREMITIES: No clubbing, no cyanosis, no edema.NEUROLOGICAL: No focal deficits, cranial nerves II-XII grossly intact, normal sensation, normal coordination, normal muscle strength, normal tone.PULSES: Pulses normal in all extremities.RECTAL: deferredGENITOURINARY: deferredSKIN: Intact without significant lesions, or rashes.LYMPH NODES: No significant node adenopathy.PSYCHIATRIC: Alert and oriented to time, person, place. Normal mood and affect, intact judgment and insight.OTHER: at bedside. -- DATA -- LABS TROPI (09/29/21 06:07)TROPONIN-I < 2.5 L TROPI (09/29/21 03:19)TROPONIN-I < 2.5 L MAG (09/29/21 03:19)MAGNESIUM 2.1 COMPREHENSIVE METABOLIC PANEL (09/29/21 03:19)SODIUM 139POTASSIUM 3.4 LCHLORIDE 104CARBON DIOXIDE 30GLUCOSE 96BLOOD UREA NITROGEN 9GLOMERULAR FILTRATION RATE >=60 max estimateCREATININE 1.10 HTOTAL PROTEIN 7.5ALBUMIN 4.1 CALCIUM 7.7 LBILIRUBIN TOTAL 0.5SGOT/AST 14SGPT/ALT < 7 LALKALINE PHOSPHATASE 81 CBC W/AUTO DIFF (09/29/21 03:19)WHITE BLOOD CELL 3.9L LRED BLOOD CELL 3.55 LHEMOGLOBIN 10.4L LHEMATOCRIT 31.5L LMEAN CELL VOLUME 88.7MEAN CELL HGB 29.3MEAN CELL HGB CONCENTRATION 33.0RED CELL DISTRIBUTION WIDTH 14.8PLATELET COUNT 208MEAN PLATELET VOLUME 11.4NEUTROPHIL % 39.3 LLYMPHOCYTE % 51.4 HMONOCYTE % 7.5EOSINOPHIL % 1.0BASOPHIL % 0.8NEUTROPHIL # 1.53 LLYMPHOCYTE # 2.00MONOCYTE # 0.29EOSINOPHIL # 0.04BASOPHIL # 0.03 COVID 19 INHOUS (09/28/21 23:19)COVID 19 INHOUSE AG NEGATIVE BASIC METABOLIC PANEL (09/28/21 23:04)SODIUM 138POTASSIUM 3.3L LCHLORIDE 102CARBON DIOXIDE 31GLUCOSE 127H HBLOOD UREA NITROGEN 10GLOMERULAR FILTRATION RATE >=60 max estimateCREATININE 1.00CALCIUM 7.6 L BNP (09/28/21 23:04)B-TYPE NATRIURETIC PEPTIDE 54 CBC W/AUTO DIFF (09/28/21 23:04)WHITE BLOOD CELL 3.6L LRED BLOOD CELL 3.75 LHEMOGLOBIN 10.8L LHEMATOCRIT 33.6L LMEAN CELL VOLUME 89.6MEAN CELL HGB 28.8MEAN CELL HGB CONCENTRATION 32.1 LRED CELL DISTRIBUTION WIDTH 14.9PLATELET COUNT 210MEAN PLATELET VOLUME 11.3NEUTROPHIL % 35.2 LLYMPHOCYTE % 52.9 HMONOCYTE % 8.3EOSINOPHIL % 2.5 BASOPHIL % 1.1NEUTROPHIL # 1.27 LLYMPHOCYTE # 1.91MONOCYTE # 0.30EOSINOPHIL # 0.09BASOPHIL # 0.04 TROPI (09/28/21 23:04)TROPONIN-I < 2.5 L -- ASSESSMENT AND PLAN -- PROBLEMS: 1: Pericardial effusionA/P: Consult Dr. Cole telemetryRavi for pericardiocentesis in Cath Labbuprofen 600 mg tid, colchicine 0.6 mg bid, pantoprazole 40 mg daily 2: HypertensionA/P: Not on medication at homehydralazine 5 mg IV q2h prn SBP > 150 mmHg 3: HypothyroidismA/P: Continue levothyroxine 125 mcg daily 4: Graves diseaseA/P: status post thyroidectomy 5: AsthmaA/P: Duoneb prn 6: Diabetes mellitusA/P: Ozempic 0.25 mg sq every Saturday. 7: DVT prophylaxisA/P: SCDs Signed in PatientKeeper by Mike Rosa APRN on 09/29/21 at 09:53 Cosigned by RON TIPTON MD on 09/30/21 at 00:15 at 0015 at 0015ATTENTION EDITS and/or ADDENDA must be made in Patient Keeper for this note. Edits and ammendments created in [facility] are not visible in Patient Keeper or the legal medical record ([facility]). [facility] #: [id number] OF REPORTHPHistory and physical jmbuubwpjjn9053-05-05U68:11:00P.ZZ-OOLR94199009-1 030AVAvailable for patient atkhUENVEPZCBCXMYY8775-38-74R09:16:42 [facility] 2021-09-28 23:16:00 [id number] D/l+a30WuhwkZJWgg11JHAwT2q7KW yt8jEwtsE4S8R+34A/Z8w8mxrDpEGEK5942-76-84R05:16:0 0 [facility] ([facility])EMERGENCY PROVIDER REPORTREPORT#:[id number] REPORT STATUS: SignedDATE:09/28/21 TIME: 2315 PATIENT: KAMRAN BELLO UNIT #: [id number]#: [id number] ROOM: [facility] BED: 1AGE: 41 SEX: F PCP PHYS: Undefined ProviderSERVICE AUTHOR: Avila Nath MD * ALL edits or amendments must be made on the electronic/computer document * HPI-General Illness GeneralInitial Greet Date/Time 09/28/21 2251 PresentationChief Complaint pericardial effusionHx Obtained From PatientExacerbated by NothingRelieved by Nothing ContextSimilar Sx Previous No Free Text HPI NotesFree Text HPI Xczpa73-akfr-iti female history of Graves' disease, asthma, DM2 sent here by her automobile carpets molder for evaluation of pericardial effusion. Patient states initially diagnosed with pericardial effusion last month when incidentally seen on CT abdomen pelvis and informed to follow-up with cardiology. Patient states she followed with automobile carpets molder today. Endorses shortness of breath over past 2 days. Denies any fever, emesis, chest pain, abdominal pain, weakness.Discussed with patient's automobile carpets molder, Dr. Hurst. Ultrasound showed moderate tolarge pericardial effusion, no tamponade. Started patient on ibuprofen 600 mg 3 times daily, colchicine 0.6 mg twice daily, pantoprazole 40 mg daily. Given shortness of breath directed patient to ED. Review of Systems ROS StatementsAll systems rev neg except as marked. Review of SystemsConstitutionalDenies: Fever. RespiratoryReports: Shortness of breath. Denies: Cough, non-productive, Cough, productive. CardiovascularDenies: Chest pain. GIDenies: Abdominal pain, Nausea, Vomiting. NeurologicDenies: Generalized weakness. Past Medical History - AdultStated Complaint DRAIN FLUID FROM HEARTAllergiesCoded Allergies:sumatriptan (From IMITREX) (Intermediate, ANXIETY 09/28/21) Home MedicationsReported MedicationsNo Known Home Medications Calculated Suicide Risk (nurs) No riskPast Medical History:Reports: Diabetes mellitus. Additional Medical HistoryGraves DiseaseSmoking status for patients 13 years old or older: Never Smoker Physical Exam Vital SignsVital SignsFirst Documented: Result Date Time Pulse Ox 100 09/28 2254 B/P 153/97 09/28 2254 B/P Mean 115 09/28 2254 O2 Delivery Room air 09/28 2254 Temp 36.7 09/28 2254 Pulse 64 09/28 2254 Resp 18 09/28 2254 Last Documented: Result Date Time Pulse Ox 100 09/28 2302 B/P 153/97 09/28 2254 B/P Mean 115 / 2254 O2 Delivery Room air 09/28 2254 Temp 36.7 / 2254 Pulse 64 09/28 2254 Resp 18 09/28 2254 Review of Vital Signs Reviewed Physical ExamGeneral/Const General/Const Awake, Alert, No acute distress, Well appearing, Cooperative, Not toxic appearingMS Head Head Atraumatic, NormocephalicEyes Eyes Atraumatic, EOMIEars/Nose/Throat Ears/Nose/Throat Airway patent, Mucous membranes moistMS Neck Neck Supple, No swellingResp/Chest Respiratory/Chest Breath sounds NL, Breath sounds = bilat, No respiratory distress, No rales, No rhonchi, No wheezingCardiovascular Cardiovascular Heart rate NL, Regular rhythm, Heart sounds NL, No gallop, No murmurs, No rubsAbdomen/GI Abdomen/GI Soft, Non-tender, No rebound, No distentionMS Upper Extrem Upper Extremity/MS Atraumatic, Inspection NLMS Lower Extrem Lower Ext/Pelvis/MS No edemaSkin Skin No rash, IntactNeurologic Neurologic Speech NL, Gait NLPsychiatric Psychiatric Affect NL, Mood NL Interpretation Diagnostics Lab Results InterpretationResultsLaboratory Tests 09/28/212303:[Embedded Image Not Available] 09/28/212303:[Embedded Image Not Available]Laboratory Tests: 09/28 Chemistry Sodium (136 - 145 mmol/L) 138 Potassium (3.5 - 5.1 mmol/L) 3.3 L Chloride (98 - 107 mmol/L) 102 Carbon Dioxide (20 - 31 mmol/L) 31 BUN (9 - 23 mg/dL) 10 Creatinine (0.55 - 1.02 mg/dL) 1.00 Glomerular Filtr Rate (>60 mL/min) >=60 max estimate Glucose (74 - 106 mg/dL) 127 H Calcium (8.7 - 10.4 mg/dL) 7.6 L B-Natriuretic Peptide (<100 pg/mL) 54 Hematology WBC (4.8 - 10.8 x10 3/uL) 3.6 L RBC (4.20 - 5.40 x10 6/uL) 3.75 L Hgb (12.0 - 16.0 g/dL) 10.8 L Hct (37.0 - 47.0 %) 33.6 L MCV (81.0 - 99.0 fL) 89.6 MCH (27 - 31 pg) 28.8 MCHC (33 - 36.5 G/DL) 32.1 L RDW (12.9 - 16.9 %) 14.9 Plt Count (150 - 440 x10 3/uL) 210 MPV (8.9 - 12.4 fL) 11.3 Neut % (Auto) (42.2 - 75.2 %) 35.2 L Lymph % (Auto) (20.5 - 51.1 %) 52.9 H Piatt % (Auto) (1.7 - 9.3 %) 8.3 Eos % (Auto) (0.0 - 7.0 %) 2.5 Baso % (Auto) (0 - 2.5 %) 1.1 Neut # (Auto) (1.80 - 7.70 x10 3/uL) 1.27 L Lymph # (Auto) (1.00 - 4.80 x10 3/uL) 1.91 Piatt # (Auto) (0.00 - 0.80 x10 3/uL) 0.30 Eos # (Auto) (0.00 - 0.45 x10 3/uL) 0.09 Baso # (Auto) (0.0 - 0.20 x10 3/uL) 0.04 09/28 09/28 2304 [id number] Chemistry Troponin I High Sens (27.36 - 66.23 pg/mL) < 2.5 L Serology SARS-CoV-2 Ag (Rapid) (NEGATIVE) NEGATIVE Recent Impressions:RADIOLOGY - XR CHEST 1 V 09/29 2319 Report Impression - Status: SIGNED Entered: 09/28/2021 2341 IMPRESSION: Enlarged globular contour of the cardiac silhouette is suggestive oflarge pericardial effusion.Impression By: [email or web address] - YOSEF GODWIN M.D. Lab Imaging StatementLaboratory radiographic studies reviewed and considered in the medical decision-making. ECG #1 InterpretationInterpreted by ED physicianNL ECG Interpretation Normal sinus rhythm, No acute ischemic changes, No STEMI, Normal QRS, Normal ST waves, Normal T wavesRate 59 RadiographyX-Ray Chest View 1 view Text/Dict NoteGlobular enlarged pericardial silhouette. Re-Evaluation MDM Re-Evaluation/Progress #1Text/Dict NotePatient stable, sitting comfortably in bed, vital signs stable. Discussed with patient's automobile carpets molder, will do pericardiocentesis in [employer] in morning, keep n.p.o., admit to Dr. Tipton. Discussed with Dr. Tipton, will admit.Time of Re-Eval 2319 ED CourseMedication(s) OrderedMedication(s) Ordered:Central Nervous System Agents Sig/Mona Start time Last Medication Dose Route Stop Time Status Admin Ibuprofen 600 MG Q6HR 09/29 0000 AC 09/29 PO 10/29 0001 0025 Acetaminophen 650 MG Q4H PRN PRN 09/28 2330 AC PO 09/29 2220 Aspirin 324 MG X1ED STA 09/28 225 DC 09/28 PO 09/28 225 2307 Electrolytic, Caloric, And Aba Sig/Mona Start time Last Medication Dose Route Stop Time Status Admin Sodium Chloride 1,000 ML ONCE ONE 09/28 2329 DCr 09/29 IV 09/29 1929 0024 Gastrointestinal Drugs Sig/Mona Start time Last Medication Dose Route Stop Time Status Admin Pantoprazole 40 MG DAILY 09/29 899 AC PO 10/29 900 Ondansetron HCl 4 MG Q6H PRN PRN 09/28 233 AC IV 09/29 2220 Miscellaneous Therapeutic Agen Sig/Mona Start time Last Medication Dose Route Stop Time Status Admin Colchicine 0.6 MG BID 09/29 899 AC PO 10/29 900 Patient Discharge Departure Vital Signs/ConditionVital SignsFirst Documented: Result Date Time Pulse Ox 100 09/28 2254 B/P 153/97 09/28 2254 B/P Mean 115 09/28 2254 O2 Delivery Room air 09/28 225 Temp 36.7 09/28 2254 Pulse 64 09/28 2254 Resp 18 09/28 2254 Last Documented: Result Date Time Pulse Ox 100 09/28 2302 B/P 153/97 09/28 2254 B/P Mean 115 09/28 2254 O2 Delivery Room air 09/28 2254 Temp 36.7 09/28 2254 Pulse 64 09/28 2254 Resp 18 09/28 2254 All vital signs available at the time of this entry have been reviewed. Condition Improved Clinical ImpressionClinical ImpressionPrimary Impression: Pericardial effusionTime of Impression 2317 Disposition DecisionAdmit Admit Physician Name Ron Tipton MD Admit Physician Hospitalist Request Time 2319 Request Date 09/28/21 )( Admission Accepts Yes )( Accepted Time 2319 )( Accepted Date 09/28/21 Discharge/Care PlanCounseled Regarding Diagnosis, Lab results, Imaging studies, Need for admission(Auto) PrescriptionsCurrent Visit ScriptsNo Known Home Medications Admit NoteI have spoken with the patient and/or caregivers. I have explained the patient'scondition, diagnoses and treatment plan based on the information available to meat this time. I have answered the patient's and/or caregiver's questions and addressed any concerns. The patient and/or caregivers have as good an understanding of the patient's diagnosis, condition and treatment plan as can beexpected at this point. The patient has been stabilized within the capability ofthe emergency department. The patient will be transported for further care and management or will be moved to an observation or inpatient service. I have communicated with the staff or medical practitioner taking over this patient's care. at 0034RPT #:[id number] OF REPORTEDEmergency department [id number]:16:00P.[id number] ilable for patient ivlpYMMWDBASIVUZAU2513-13-57Y96:35:13 [facility] 2021-09-28 23:10:00 [id number] msZBKbpHc6ykY7G7qFSbxuNMgB0F6 hwyEDtMVstVWNqthaBN3nfk32Ixa3Kv6506-82-92E97:10:0 [id number] [address] NAME: KAMRAN BELLO ADMIT DATE: 09/28/21ACCOUNT NO: [id number] ROOM NO: 0590 AGE: 41 REPORT TYPE: eELECTROCARDIOGRAM SEX: F ADMITTING PHYSICIAN: Ron Tipton MD ATTENDING PHYSICIAN: Ron Tipton MD Order:[id number] Reason : SX Test Date/Time Stamp:SatSep 28 2021 23:10:32Blood Pressure : / mmHGVent. Rate : 059 BPM Atrial Rate : 059 BPM P-R Int : 166 ms QRS Dur : 088 ms QT Int : 372 ms P-R-T Axes : 012 -10 076 degrees QTc Int : 368 ms Sinus bradycardiaLow voltage QRSCannot rule out Anterior infarct , age undeterminedAbnormal ECGNo previous ECGs availableConfirmed by HUMBERTO VALERIO MD ([id number]) on 09/29/2021 4:41:25 PM Referred By: Self Referred Confirmed by:HUMBERTO VALERIO MD at 1641 PATIENT NAME: KAMRAN BELLO .[id number] AVAvailable for patient [id number]-61K30:41:53 [facility] 2021-08-30 23:04:00 [id number] DxkwQmguRuVSVwxJJxy6dL3e6nqd/ CSYOnZjXUD3RQs9eb6lCfrtEifUxXLy1602-31-58E55:04:0 [id number] [place] [address] [place] [address] PATIENT NAME: DAVID BELLO ADMIT DATE: 08/30/21ACCOUNT NO: [id number] ROOM NO: AGE: 41 SEX: F ADMITTING PHYSICIAN: ATTENDING PHYSICIAN: Robyn Henry MD Order:[id number] Reason : LARGE PERICARDIAL EFFUSION Test Date/Time Stamp:SatAug 30 2021 23:04:14Blood Pressure : / mmHGVent. Rate : 061 BPM Atrial Rate : 061 BPM P-R Int : 140 ms QRS Dur : 090 ms QT Int : 404 ms P-R-T Axes : 042 043 -81 degrees QTc Int : 406 ms Normal sinus rhythmSeptal infarct , age undeterminedAbnormal ECGNo previous ECGs availableConfirmed by TIFFANI STONE MD ([id number]) on 09/03/2021 8:22:27 PM Referred By: Robyn Herny Confirmed by:TIFFANI STONE MD at 2021 PATIENT NAME: DAVID BELLO .[id number] AVAvailable for patient tucsSMJPHYRSCWQOOY4897-77-26H61:22:51 [facility] 2021-08-30 22:17:00 [id number]/ 1fibrOjzmEPrkcRYcLsDonxXjy/jF A2iWz0WgaLsbrD5BOLtcJHs4UNUbrzc0826-62-24U36:17:0 0 [facility] ([facility])EMERGENCY PROVIDER REPORTREPORT#:[id number] REPORT STATUS: SignedDATE:08/30/21 TIME: 2216 PATIENT: DAVID BELLO HQLONNIE Hernandez UNIT #: [id number]#: [id number] ROOM/BED:AGE: 41 SEX: F PCP PHYS: DOES_NOT KNOWSERVICE AUTHOR: Robyn Henry MD * ALL edits or amendments must be made on the electronic/computer document * HPI-Abd Pain F 40 and Over GeneralInitial Greet Date/Time 08/30/211948 PresentationChief Complaint Flank pain RHx Obtained From PatientSudden in Onset? No Free Text HPI NotesFree Text HPI Tlmoz19-tsag-upm female with history of kidney stones requiring surgical interventiontwice in 2019 presents with dysuria and right flank pain x1 week. Patient states this is associated with increased urination and urinary urgency. Patientalso reports nausea and vomiting and fever with onset yesterday. Patient deniesabdominal pain. Patient has an appointment with urology next week. Risk-Abd Pain F 40 and Over)( Abdominal Aortic Aneurysm Risk factors reviewed Review of Systems ROS StatementsAll systems rev neg except as marked. Focused Review of SystemsConstitutionalReports: Fever. RespiratoryDenies: Cough, non-productive, Cough, productive, Shortness of breath. CardiovascularDenies: Chest pain. GIReports: Nausea, Vomiting. Denies: Abdominal pain. FemaleReports: Dysuria, Flank pain, Urinary frequency, Urinary urgency. Denies: Pelvic pain, Vaginal bleeding - abnl. MusculoskeletalReports: Back pain. Denies: Extremity pain, Extremity swelling. Past Medical History - AdultStated Complaint DYSURIAAllergiesCoded Allergies:sumatriptan (From IMITREX) (ITCHY 08/30/21) Physical Exam Vital SignsVital SignsFirst Documented: Result Date Time Pulse Ox 100 08/30 1946 B/P 139/78 08/30 1946 B/P Mean 98 08/30 1946 O2 Delivery Room air 08/30 1946 Temp 100.8 08/30 1946 Pulse 85 08/30 1946 Resp 17 08/30 1946 Last Documented: Result Date Time Pulse Ox 97 08/314 B/P 141/79 06/09 0144 B/P Mean 99 09/01 143 O2 Delivery Room air 09/01 143 Temp 97.8 09/01 143 Pulse 66 09/01 143 Resp 18 09/01 143 Review of Vital Signs Reviewed Focused PEGeneral/Const General/Const Awake, Alert, No acute distress, Well appearing, Well developed, Well hydrated, Well nourished, Cooperative, Not toxic appearingMS Head Head Atraumatic, NormocephalicResp/Chest Respiratory/Chest Atraumatic, Breath sounds NL, Breath sounds = bilat, No respiratory distress, No rales, No rhonchiCardiovascular Cardiovascular Heart rate NL, Regular rhythm, Heart sounds NL, No gallop, No murmursAbdomen/GI Abdomen/GI Atraumatic, Soft, Non-tender, McBurney's non-tender, No guarding, BS normoactive, No distentionMS Back Back Atraumatic, Inspection NL Text/Dict Notessevere right CVAT, mild left CVATSkin Skin Atraumatic, Color NL, No rash, Warm, Dry, Intact, Turgor NL, No swellingNeurologic Neurologic Oriented X3, Speech NL, CN II - XII intact, Gait NL Interpretation Diagnostics Lab Results InterpretationResultsLaboratory Tests 08/30/212129:[Embedded Image Not Available] 08/30/212012:[Embedded Image Not Available]Laboratory Tests: 08/30 08/30 08/30 08/30 2253 2253 2129 2012 Chemistry Sodium (135 - 145 mEq/L) 129 L Potassium (3.5 - 5.0 mEq/L) 3.1 L Chloride (100 - 115 mEq/L) 93 L Carbon Dioxide (22 - 31 mEq/L) 29 Anion Gap (10 - 20) 10.30 BUN (7 - 18 mg/dL) 6 L Creatinine (0.5 - 1.0 mg/dL) 1.4 H Glomerular Filtr Rate (>60 ml/min) 46 L Glucose (65 - 110 mg/dL) 127 H Calcium (8.4 - 10.2 mg/dL) 7.7 L Total Bilirubin (0.2 - 1.0 mg/dL) 1.2 H AST (15 - 37 units/L) 48 H ALT (12 - 78 units/L) 45 Total Alk Phosphatase (46 - 116 units/L) 171 H Troponin I (<51.4 pg/mL) 5.6 B-Natriuretic Peptide (0 - 100 pg/mL) 19.57 Total Protein (6.3 - 8.2 gm/dL) 8.5 H Albumin (3.4 - 4.8 gm/dL) 3.2 L Hematology WBC (6.5 - 12.3 K/mm3) 14.3 H RBC (3.51 - 4.69 M/mm3) 4.16 Hgb (10.1 - 13.8 g/dL) 11.9 Hct (32.5 - 41.8 %) 35.7 MCV (84.6 - 96.6 fL) 85.8 MCH (27.3 - 33.9 pg) 28.6 MCHC (32.0 - 34.2 gm/dL) 33.3 RDW (12.2 - 16.3 %) 13.2 Plt Count (134 - 363 K/mm3) 346 MPV (9.2 - 12.7 fL) 10.6 Neut % (Auto) (57.9 - 77.3 %) 75.6 Lymph % (Auto) (14.5 - 29.7 %) 13.9 L Piatt % (Auto) (3.6 - 10.2 %) 9.0 Eos % (Auto) (0.0 - 3.0 %) 0.1 Baso % (Auto) (0.1 - 0.9 %) 0.3 Neut # (Auto) (K/mm3) 10.8 Lymph # (Auto) (K/mm3) 2.0 Piatt # (Auto) (K/mm3) 1.3 Eos # (Auto) (K/mm3) 0.01 Baso # (Auto) (K/mm3) 0.0 06/08 1950 Urines Urine Color (YELLOW) YELLOW Urine Appearance (CLEAR) HAZY Urine pH (5 - 9) 6.0 Ur Specific [place] (1.001 - 1.035) 1.015 Urine Protein (NEGATIVE) 2+ Urine Glucose (UA) (NEGATIVE) NEGATIVE Urine Ketones (NEGATIVE) NEGATIVE Urine Blood (NEGATIVE) 3+ H Urine Nitrite (NEGATIVE) NEGATIVE Urine Bilirubin (NEGATIVE) 1+ Urine Urobilinogen (<=1.0 EU/dL) 2.0 H Ur Leukocyte Esterase (NEGATIVE) 3+ H Urine RBC (NONE SEEN #/hpf) 31-40 H Urine WBC (NONE SEEN #/hpf) TOO NUMEROUS TO CNT H Ur Epithelial Cells (RARE - FEW #/HPF) FEW Urine Bacteria (RARE - FEW /HPF) MODERATE H Urine Mucus (NONE SEEN) RARE Urine HCG, Qual NEGATIVE Microbiology: Date/Time Procedure - Status Source Growth 08/31 2039 Urine Culture - RECD URINE Recent Impressions:CAT SCAN - CT ABD PELVIS W/O CONT 08/30 2204 Report Impression - Status: SIGNED Entered: 08/30/2021 2246 IMPRESSION: 1. Findings consistent with nephrocalcinosis with nonobstructing right renal calculus. 2. The ureters are not able to be followed in their entirety. Bilateral pelvic soft tissue calcifications are seen. Nonobstructing distal right ureteral calculus cannot be completely excluded. 3. Nonspecific fatty injection/inflammation in the right lower quadrant. Recently passed calculus, ascending urinary tract infection, gonadal vein thrombosis, and other inflammatory processes can be considered. 4. Colonic diverticulosis. 5. Large pericardial effusion. Impression By: [email or web address] - Darius Noonan, MDRADIOLOGY - XR CHEST 2 V 08/30 2321 Report Impression - Status: SIGNED Entered: 08/31/2021 0001 IMPRESSION: Cardiomegaly. The concurrent CT abdomen/pelvis demonstrates large pericardial effusion. Impression By: [email or web address] - Donnie García MD Lab Imaging StatementLaboratory radiographic studies reviewed and considered in the medical decision-making. ECG #1 InterpretationText/Dict NoteNormal sinus rhythm at 61 bpm, normal axis, normal intervals, nonspecific ST/T changesDate 08/30/21Time 1104Interpreted by and reviewed by me, ED physicianRate 61 Re-Evaluation MDM )( Re-Evaluation/Progress #1Text/Dict NoteOn multiple reevaluations patient continues to deny chest pain or shortness of breath.Time of Re-Eval 0122)( Re-Eval Status Improved ED CourseMedication(s) OrderedMedication(s) Ordered:Anti-Infective Agents Sig/Mona Start time Last Medication Dose Route Stop Time Status Admin Ceftriaxone Sodium 1,000 MG X1ED STA 08/31 2211 DC 08/30 Sodium Chloride 100 ML IV 08/30 2241 2223 Central Nervous System Agents Sig/Mona Start time Last Medication Dose Route Stop Time Status Admin Ketorolac 30 MG X1ED STA 08/30 2049 DC 08/30 Tromethamine IV 08/30 Acetaminophen 1,000 MG X1ED STA 08/30 1958 DC 08/30 PO 08/30 Electrolytic, Caloric, And Aba Sig/Mona Start time Last Medication Dose Route Stop Time Status Admin Potassium Chloride 40 MEQ X1ED STA 08/31 2215 DC 08/30 PO 08/30 Sodium Chloride 1,000 ML X1ED STA 08/30 2049 DC / IV 08/30 Gastrointestinal Drugs Sig/Mona Start time Last Medication Dose Route Stop Time Status Admin Ondansetron HCl 4 MG X1ED STA 08/30 2049 DC 08/30 IV 08/30 ConsultationConsultation Shell Sieve Operator Called Cardiology (Dr Allen) Requested Call Time 0112 Requested Call Date 08/31/21 Call Returned Call returned Call Returned Time 0112 Call Returned Date 08/31/21 Shell Sieve Operator zander to d/c home with outpatient evaluation for pericardial effusion. Patient Discharge Departure Vital Signs/ConditionVital SignsFirst Documented: Result Date Time Pulse Ox 100 08/30 1946 B/P 139/78 08/30 1946 B/P Mean 98 08/30 1946 O2 Delivery Room air 08/30 1946 Temp 100.8 08/30 1946 Pulse 85 08/30 1946 Resp 17 08/30 1946 Last Documented: Result Date Time Pulse Ox 97 08/31 0144 B/P 141/79 09/01 143 B/P Mean 99 09/01 143 O2 Delivery Room air 09/01 143 Temp 97.8 08/31 0144 Pulse 66 08/31 0144 Resp 18 08/31 0144 All vital signs available at the time of this entry have been reviewed. Condition Stable Clinical ImpressionClinical ImpressionPrimary Impression: UTI (urinary tract infection)Secondary Impressions: Kidney stones, Pericardial effusionTime of Impression 0122 Disposition DecisionDischarge )( Discharged to Home Yes )( Time 0122 )( Date 08/31/21 Discharge/Care PlanCounseled Regarding Diagnosis, Lab results, Imaging studies, Prescriptions, Needfor follow-up, When to return to ED(Auto) PrescriptionsCurrent Visit ScriptsCEPHALEXIN (KEFLEX) 500 MG PO Q12HR CEPHALEXIN (KEFLEX) 500 MG PO Q12HR #20 CAPS Take for 10 days KETOROLAC (TORADOL) 10 MG PO Q6H PRN PRN PAIN KETOROLAC (TORADOL) 10 MG PO Q6H PRN PRN PAIN #20 TABS Patient Instructions ED Kidney Stone, Passed, Urinary Tract Infections in WomenReferralsProvider Referral: Dung Allen MD Follow-Up: Call for appointment Address: [address] [place] [id number] Discharge NoteI have spoken with the patient and/or caregivers. I have explained the patient'scondition, diagnoses and treatment plan based on the information available to meat this time. I have answered the patient's and/or caregiver's questions and addressed any concerns. The patient and/or caregivers have as good an understanding of the patient's diagnosis, condition and treatment plan as can beexpected at this point. The vital signs have been stable. The patient's condition is stable and appropriate for discharge from the emergency department. The patient will pursue further outpatient evaluation with the primary care physician or other designated or consulting physician as outlined in the discharge instructions. The patient and/or caregivers are agreeable to this planof care and follow-up instructions have been explained in detail. The patient and/or caregivers have received these instructions in written format and have expressed an understanding of the discharge instructions. The patient and/or caregivers are aware that any significant change in condition or worsening of symptoms should prompt an immediate return to this or the closest emergency department or a call to 911. at 0521RPT #:[id number] OF REPORTEDEmerozarks community hospital department hoplyo2956-22-51T46:17:00F.[id number] ilable for patient hubrHKIZRDLABVWGAQ9003-50-60M75:21:22 [facility]
--- NOTE | 2023-07-23 01:39 | EDPHYS ---
Physician Documentation [facility] Name: Bon Riggins Age: 43 yrs Sex: Female : 1980 Arrival Date: 07/22/2023 Time: 23:52 Bed 7 Private MD: ED Physician Joselito Shaver HPI: 07/22 00:30 This 43 yrs old Black Female presents to ER via Ambulatory with complaints of Leg Pain. cp 00:30 The patient presents with pain, that is acute. The complaints affect the left cp hamstring, posterior aspect of left knee and left calf. Context: resulted from an unknown cause, the patient can fully bear weight, the patient is able to ambulate, with moderate difficulty, Problem is a result from a previous injury: No. Onset: The symptoms/episode began/occurred last week, and became worse yesterday. Modifying factors: the symptoms are aggravated by movement, weight bearing, bending knee. Associated signs and symptoms: Pertinent positives: calf tenderness, swelling, Pertinent negatives fever, warmth, weakness, shortness of breath. Treatment prior to arrival includes: no previous treatment. 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 - Infectious Disease History:: Denies. - Social history:: Smoking status: Patient/guardian denies using tobacco, the patient reports quitting approximately 1 years ago. ROS: 00:33 MS/extremity: Positive for pain, swelling, tenderness, of the left calf and posterior cp aspect of left knee and left hamstring, Negative for injury or acute deformity, decreased range of motion, paresthesias, 00:33 Constitutional: Negative for body aches, chills, fever, poor PO intake, cp 00:33 Neck: Negative for pain with movement, pain at rest, stiffness, 00:33 Cardiovascular: Negative for chest pain, edema, palpitations, 00:33 Respiratory: Negative for cough, shortness of breath, wheezing, 00:33 Abdomen/GI: Negative for abdominal pain, vomiting, diarrhea, constipation, 00:33 Back: Negative for pain at rest, pain with movement, 00:33 Neuro: Negative for dizziness, headache, numbness, tingling, weakness, 00:33 All other systems are negative, Exam: 00:35 Constitutional: The patient appears in no acute distress, alert, awake, non-toxic, well cp developed, well nourished, uncomfortable, 00:35 Head/Face: Normocephalic, atraumatic. cp 00:35 Chest/axilla: Inspection: normal, 00:35 Cardiovascular: Rate: normal, Rhythm: regular, Edema: is not appreciated, JVD: is not appreciated, 00:35 Respiratory: the patient does not display signs of respiratory distress, Respirations: normal, no use of accessory muscles, no retractions, labored breathing, is not present, Breath sounds: are clear throughout, no decreased breath sounds, no stridor, no wheezing, 00:35 Abdomen/GI: Exam negative for discomfort, distension, guarding, Inspection: abdomen appears normal, 00:35 Back: pain, is absent, ROM is normal, 00:35 Musculoskeletal/extremity: Extremities: grossly normal except: noted in the left calf and posterior aspect of left knee and left hamstring: pain, tenderness, positive medial and lateral joint line tenderness, There is no evidence of decreased ROM, deformity, ROM: limited passive range of motion due to pain, in the left knee, Perfusion: the extremity is normally perfused throughout, Sensation intact. 00:35 Skin: cellulitis, is not appreciated, no rash present. 00:35 Neuro: Sensation: is normal, Vital Signs: 00:26 BP 118 / 83; Pulse 62; Resp 18; Temp 97.9; Pulse Ox 98% ; Weight 97.52 kg; Height 5 ft. vc1 5 in. ; Pain 5/10; 02:00 BP 117 / 81; Pulse 62; Resp 17 S; Temp 97.6(T); Pulse Ox 100% on R/A; ha1 00:26 Body Mass Index 35.78 (97.52 kg, 165.1 cm) vc1 00:26 Pain Scale: Adult vc1 MDM: 00:21 Patient medically screened. cp 01:00 Differential diagnosis: tendonitis, cellulitis, septic joint, bursitis. cp 01:28 ED course: received phone report from [facility] that negative DVT study. cp 01:38 Data reviewed: vital signs, nurses notes, radiologic studies, plain films, ultrasound, cp and as a result, I will discharge patient. 01:38 I considered the following discharge prescriptions or medication management in the cp emergency department Medications were administered in the Emergency Department. See MAR. Independent interpretation of the following test(s) in the Emergency Department X-Ray: My interpretation is images of left knee negative for fracture, negative for effusion. Care significantly affected by the following chronic conditions: Chronic Kidney Disease. Counseling: I had a detailed discussion with the patient and/or guardian regarding the historical points, exam findings, and any diagnostic results supporting the discharge/admit diagnosis, radiology results, the need for outpatient follow up, a family practitioner, a orthopedic surgeon, to return to the emergency department if symptoms worsen or persist or if there are any questions or concerns that arise at home. Response to treatment: the patient's symptoms have mildly improved after treatment, and as a result, I will discharge patient. 07/22 00:22 Order name: US Extremity Venous Unilateral Ltd cp 07/22 00:22 Order name: XRAY Knee LEFT 3 view cp 07/22 01:38 Order name: Crutches; Complete Time: 01:59 cp Administered Medications: 01:30 Drug: Ibuprofen PO 800 mg PO once Route: PO; ha1 01:59 Follow up: Response: No adverse reaction; Marked relief of symptoms ha1 01:30 Drug: Acetaminophen PO 1000 mg PO once Route: PO; ha1 01:59 Follow up: Response: No adverse reaction; Marked relief of symptoms ha1 Disposition: 20:42 Co-signature as Attending Physician, Joselito Shaver MD I agree with the assessment sp4 and plan of care. I reviewed the patient's care provided by the Advanced Practice Provider and agree with the diagnosis and treatment plan. Disposition Summary: 07/23/23 01:39 Discharge Ordered Notes: Location: Home cp Problem: new cp Symptoms: have improved cp Condition: Stable cp Diagnosis - Pain in left knee cp - Pain in left leg cp Followup: cp - With: Private Physician - When: 1 week - Reason: pain continues Discharge Instructions: - Discharge Summary Sheet cp - Elastic Bandage and RICE Therapy cp - Acute Knee Pain, Adult cp - Heat Therapy cp Forms: - Medication Reconciliation Form cp - Antibiotic Education cp - Prescription Opioid Use cp - Patient Portal Instructions cp - Leadership Thank You Letter cp - Family Work Release ha1 Prescriptions: - Diclofenac Sodium 75 mg Oral tablet, delayed release (enteric coated) - take 1 tablet ORAL route 2 times per day; 20 tablet; Refills: 0, Product cp Selection Permitted Signatures: Dispatcher [employer] EDMS Junior Valentine PA PA cp Calcote, Vanessa, RN RN 1 Kitty Lacy RN RN 1 Joselito Shaver MD MD sp4 Corrections: (The following items were deleted from the chart) 00:25 00:19 Allergies: No Known Allergies; 1 1 00: 00:19 Home Meds: None; 1 1 00:19 PMHx: imitrex; 1 1 00:19 PMHx: imipenem; 1 1 00 00:19 PMHx: Dye contrast; 1 1 00: 00:19 PSHx: None; 1 1
--- NOTE | 2023-07-23 01:39 | ER ---
Nurse's Notes [facility] Name: Bon Riggins Age: 43 yrs Sex: Female : 1980 Arrival Date: 07/22/2023 Time: 23:52 Bed 7 Private MD: Diagnosis: Pain in left knee;Pain in left leg Presentation: 07/22 00:19 Chief complaint: Patient states: pain behind left knee. Coronavirus screen: At this vc1 time, the client does not indicate any symptoms associated with coronavirus-19. Ebola Screen: Patient negative for fever greater than or equal to 101.5 degrees Fahrenheit, and additional compatible Ebola Virus Disease symptoms Patient denies exposure to infectious person. Patient denies travel to an Ebola-affected area in the 21 days before illness onset. No symptoms or risks identified at this time. Initial Sepsis Screen: Does the patient meet any 2 criteria? No. Patient's initial sepsis screen is negative. Does the patient have a suspected source of infection? No. Patient's initial sepsis screen is negative. Risk Assessment: Do you want to hurt yourself or someone else? Patient reports no desire to harm self or others. Onset of symptoms is unknown. 00:19 Method Of Arrival: Ambulatory vc1 00:19 Acuity: CARMENZA 3 vc1 HOG PUSHER: 00:26 LMP 07/14/2023, unknown vc1 Historical: - Allergies: 00:19 imipenem-cilastatin; vc1 00:19 Imitrex; vc1 00:19 dye, contrast; vc1 - PMHx: 00:19 SVT; Hyperthyroidism; Asthma; Kidney disease; vc1 - PSHx: 00:19 Thyroidectomy; vc1 - Immunization history:: Client reports receiving the 2nd dose of the Covid vaccine, Flu vaccine is up to date. - Infectious Disease History:: Denies. - Social history:: Smoking status: Patient/guardian denies using tobacco, the patient reports quitting approximately 1 years ago. Screenin:01 [facility] ED Fall Risk Assessment (Adult) History of falling in the last 3 months, ha1 including since admission Yes- single mechanical fall (1 pt) Confusion or Disorientation No (0 pts) Intoxicated or Sedated No (0 pts) Impaired Gait No (0 pts) Mobility Assist Device Used No (0 pt) Altered Elimination No (0 pt) Score/Fall Risk Level 0 - 2 = Low Risk Oriented to surroundings, Maintained a safe environment, Hourly rounding (assess needs \T\ fall precautionary measures) done. Abuse screen: Denies threats or abuse. Denies injuries from another. Nutritional screening: No deficits noted. Tuberculosis screening: No symptoms or risk factors identified. Assessment: 01:00 General: Appears uncomfortable, Behavior is calm, cooperative. Pain: Complains of pain ha1 in left leg Pain does not radiate. Pain currently is 8 out of 10 on a pain scale. Aggravated by exercise, increased activity. Respiratory: Airway is patent Respiratory effort is even, unlabored, Respiratory pattern is regular, symmetrical. Musculoskeletal: Circulation, motion, and sensation intact. Range of motion: intact in all extremities. 01:59 Reassessment: Patient and/or family updated on plan of care and expected duration. Pain ha1 level reassessed. Patient is alert, oriented x 3, equal unlabored respirations, skin warm/dry/pink. Patient states symptoms have improved. Vital Signs: 00:26 BP 118 / 83; Pulse 62; Resp 18; Temp 97.9; Pulse Ox 98% ; Weight 97.52 kg; Height 5 ft. vc1 5 in. ; Pain 5/10; 02:00 BP 117 / 81; Pulse 62; Resp 17 S; Temp 97.6(T); Pulse Ox 100% on R/A; ha1 00:26 Body Mass Index 35.78 (97.52 kg, 165.1 cm) vc1 00:26 Pain Scale: Adult vc1 ED Course: 07/21 00:19 Patient has correct armband on for positive identification. Bed in low position. Call ha1 light in reach. Side rails up X 1. Adult w/ patient. 07/22 00:01 Patient arrived in ED. gm2 00:01 Junior Valentine PA is PHCP. cp 00:01 Joselito Shaver MD is Attending Physician. cp 00:19 Triage completed. vc1 00:25 Arm band placed on right wrist. vc1 01:14 US Extremity Venous Unilateral Ltd In Process Unspecified. EDMS 01:32 XRAY Knee LEFT 3 view In Process Unspecified. EDMS 02:02 Provided Education on: medication administration . ha1 02:02 No provider procedures requiring assistance completed. Patient did not have IV access ha1 during this emergency room visit. Administered Medications: 01:30 Drug: Ibuprofen PO 800 mg PO once Route: PO; ha1 :59 Follow up: Response: No adverse reaction; Marked relief of symptoms ha1 01:30 Drug: Acetaminophen PO 1000 mg PO once Route: PO; ha1 :59 Follow up: Response: No adverse reaction; Marked relief of symptoms ha1 Medication: 02:02 VIS not applicable for this client. ha1 Outcome: 01:39 Discharge ordered by . richelle 02:02 Discharged to home with crutches, with family, ha1 02:02 Condition: stable 02:02 Discharge instructions given to patient, family, Instructed on discharge instructions, follow up and referral plans. medication usage, Demonstrated understanding of instructions, follow-up care, medications, Prescriptions given X 1, :03 Patient left the ED. ha1 Signatures: Dispatcher [employer] EDMS Junior Valentine PA PA cp Calcote, Vanessa, RN RN 1 Kitty Lacy RN RN 1 Sandy Wiseman 2 Corrections: (The following items were deleted from the chart) 00:25 00:19 Allergies: No Known Allergies; vc1 vc1 00:25 00:19 Home Meds: None; vc1 vc1 00:25 00:19 PMHx: imitrex; vc1 vc1 00:25 00:19 PMHx: imipenem; vc1 vc1 00:25 00:19 PMHx: Dye contrast; vc1 vc1 00:25 00:19 PSHx: None; vc1 vc1
[2023-07-23] MEDS ORDERED: ACETAMINOPHEN 500 MG TAB ONE (01:43)
[2023-07-23] MEDS ORDERED: IBUPROFEN 400 MG TAB ONE (01:44)
[2023-07-23 02:39] VITALS: BP 117/81; TEMP 97.6; O2SAT 100
--- NOTE | 2023-07-23 15:19 | RAD REPORT ---
EXAM DESCRIPTION: US - Extremity Venous Uni Ltd - 07/23/2023 1:13 am CLINICAL HISTORY: Pain . COMPARISON: None TECHNIQUE: Grayscale, color Doppler, duplex Doppler, spectral Doppler images and analysis with compr ession and augmentation of left lower extremity veins. FINDINGS: Left common femoral, greater saphenous, femoral, deep (profunda) femoral, popliteal, poste rior tibial veins unremarkable without evidence of clot. IMPRESSION: No sonographic evidence of left lower extremity DVT. Electronically signed by: Allen Milner MD 07/23/2023 01:52 AM CDT Due to temporary technical issues with the PACS/Fluency reporting system, reports are being signed by the in house radiologists without review as a courtesy to insure prompt reporting. The interpreting radiologist is fully responsible for the content of the report.
--- NOTE | 2023-07-23 15:21 | RAD REPORT ---
EXAM DESCRIPTION: RAD - Knee Left 3 View - 07/23/2023 1:30 am CLINICAL HISTORY: Pain COMPARISON: None TECHNIQUE: Left Knee 3 Views FINDINGS: No fracture or dislocation. No significant sclerotic/lytic bone lesion. Small patellar enthesophytes (bone spur). Joint spaces unremarkable. Soft tissues unremarkable. IMPRESSION: Unremarkable Left Knee Radiographs. Electronically signed by: Allen Milner MD 07/23/2023 01:57 AM CDT Due to temporary technical issues with the PACS/Fluency reporting system, reports are being signed by the in house radiologists without review as a courtesy to insure prompt reporting. The interpreting radiologist is fully responsible for the content of the report.
== END 2023-07-23 02:03 | disposition home or self-care (01) ==
LOC: ER 23:52
DX: M25.562 Pain in left knee (principal); M79.605 Pain in left leg; Z88.8 Allergy status to other drugs, medicaments and biological substances; Z91.041 Radiographic dye allergy status
CPT/HCPCS: 93971; 99283

== ENCOUNTER 2023-11-02 20:20 | Emergency (ER) | payer OTHER ==
--- OUTSIDE RECORDS SUMMARY | 2023-11-02 20:25 | XMS REPORT | Continuity of Care Document ---
Author Name Unknown Address [address] [facility] [place] [address] [facility] thconnect Address 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 Role Phone No , Pcp Primary Care Physician Unavailab Samia Matosn Attending Clinician Unavailab Bj Claudio Attending Clinician Unavailable Shaq Coats Attending Clinician Unavailab Terence Araujo MD Attending Clinician [phone] Jam Tolliver Attending Clinician Unavailable Brett Rodriguez Attending Clinician Unavailable Grace Castano Attending Clinician Unavailable Glen Nava Attending Clinician Unavailable Rony Hickey Attending Clinician Unavailable Ron Tipton Attending Clinician Unavailable FADIA_Lotze_P Attending Clinician UnavailMary Kay Carvalho Attending Clinician [phone] Robyn Henry Attending Clinician UnavailJam Carrera Admitting Clinician Unavailable Bj Oneal Admitting Clinician Unavailable Javi Cuadra Admitting Clinician Unavailable Grace Castano Admitting Clinician Unavailable Glen Nava Admitting Clinician Unavailable Ron Tipton Admitting Clinician Unavailable UNDEFINED Admitting Clinician Unavailable MAIRAPRC_Lotze_P Admitting Clinician Unavaila ble KNOW, DOES_NOT Admitting Clinician Unavailable Payers Payer Name Policy Type Policy Number Effective Date Expirati on Date Source [facility] [id number] 2021 00:00:00 Allergies, Adverse Reactions, Alerts Allergy Name Allergy Type Status Severity Reaction(s) Onset Date Inactive Date Treating Clinician Comments Source Iodinate d Contrast Media DA Active U UNKNOWN 2023-0 2-20 00:00: 00 [facility] adhesive tape DA Active [place] HIVES 2023-0 1-15 00:00: 00 [facility] sumatrip bailey DA Active U ITCHY 0 1-15 00:00: 00 [facility] ertapene m DA Active [place] Itching 0 1-15 00:00: 00 [facility] CONTRAST DA Active [place] RASH 0 1-15 00:00: 00 [facility] Adhesive Tape Drug Allergy Active Hives 2022-0 9-21 00:00: 00 [facility] adhesive tape DA Active [place] HIVES 2022-0 9-21 00:00: 00 [facility] Ertapene m Allergy to substanc e Active Itching 2022-0 9-10 00:00: 00 [facility] ertapene m DA Active [place] Itching 2022-0 9-10 00:00: 00 [facility] sumatrip bailey DA Active [place] ANXIETY 2021-0 7-07 00:00: 00 [facility] Sumatrip bailey Allergy to substanc e Active Hives 2021-0 6-08 00:00: 00 [facility] sumatrip bailey DA Active U ITCHY 2021-0 6-08 00:00: 00 [facility] Social History Social Habit Start Date Stop Date Quantity Comments Source Sexual orientation [facility] History of tobacco use Cigar Smoker [facility] Tobacco use and exposure 2023-02-04 00:00:00 2023-02-04 00:00:00 Smokeless tobacco non-user [facility] Sex Assigned At 1980 00:00:00 1980 00:00:00 [facility] Smoking Status Start Date Stop Date Source Occasional tobacco smoker 2023-02-04 00:00:00 [facility] Medications Ordered Medication Name Filled Medication Name Start Date Stop Date Current Medication? Ordering Clinician Indication Dosage Frequency Signature (SIG) Comments Components Source losartan (Cozaar) 25 MG tablet 2022-03 12:01: 14 Yes 1{tbl} 1 tablet. [facility] Ozempic, 2 MG/DOSE, 8 MG/3ML solution pen-injecto r 2022-03 00:00: 00 Yes [facility] hydroCHLORO thiazide (HYDRODiuri l) 25 MG tablet 2022-03 00:00: 00 04-24 05:59 :00 No 25mg Take 25 mg by mouth 1 (one) time each day in the morning. [facility] citalopram (CeleXA) 10 MG tablet 2022-03 00:00: 00 Yes 10mg QD Take 10 mg by mouth 1 (one) time each day. FOR 30 DAYS [facility] albuterol 108 (90 Base) MCG/ACT inhaler 2022-03 00:00: 00 Yes TAKE 2 PUFF BY MOUTH EVERY 4 HRS NEEDED [facility] levothyroxi ne (Synthroid, Levoxyl) 125 MCG tablet 11-06 00:00: 00 Yes 1 (one) time each day at the same time. [facility] cephalexin 500 mg capsule cephalexin 500 mg capsule No cephalexin 500 mg capsule [facility] ketorolac 10 mg tablet ketorolac 10 mg tablet No ketorolac 10 mg tablet [facility] Vital Signs Vital Name Observation Time Observation Value Comments S ource Systolic blood pressure 2023-02-04 18:22:00 105 mm[Hg] [facility] Diastolic blood pressure 2023-02-04 18:22:00 72 mm[Hg] [facility] Heart rate 2023-02-04 18:22:00 81 /min [facility] Body temperature 2023-02-04 18:22:00 36.78 Sarah [facility] Body height 2023-02-04 18:22:00 165.1 cm [facility] Body weight 2023-02-04 18:22:00 95.255 kg [facility] BMI 2023-02-04 18:22:00 34.95 kg/m2 [facility] BP Diastolic 2021-09-18 00:00:00 93 mm[Hg] [facility] Height 2021-09-18 00:00:00 65 [in_i] [facility] BMI (Body Mass Index) 2021-09-18 00:00:00 33.3 kg/m2 [facility] BP Systolic 2021-09-18 00:00:00 137 mm[Hg] [facility] Body Weight 2021-09-18 00:00:00 200 [lb_av] [facility] Procedures Procedure Date / Time Performed Performing Clinicia n Source [id number] 2023-04-15 00:00:00 ABDYA01 [facility] [id number] 2023-04-09 00:00:00 HINPE [facility] [id number] 2022-11-24 00:00:00 KUMSA.02 [facility] [id number] 2022-11-24 00:00:00 KUMSA.02 [facility] [id number] 2022-11-21 00:00:00 HINPE [facility] [id number] 2022-11-21 00:00:00 HINPE [facility] [id number] 2021-09-29 00:00:00 WILJA.07 [facility] Encounters Start Date/Time End Date/Time Encounter Type Admission Type Attending [facility] Care Facility Care Department Encounter ID Source 2023-05-14 21:51:00 2023-05-15 05:32:00 Emergency EM Shana Samia HCAPM SHMUEL [id number] [facility] 2023-04-08 17:20:00 2023-04-15 17:27:00 Inpatient EM Bj Oneal HCAPM MEDI.01 [id number] [facility] 2023-04-08 12:03:00 2023-04-08 12:03:00 Outpatient Shaq Coats HCACL LABO [id number] [facility] 2023-02-04 11:15:00 2023-02-04 12:50:41 Office Visit Terence Puentes [facility] 1 [id number] [facility] 2023-01-22 12:00:00 2023-01-22 12:00:00 Outpatient EL Jam Tolliver HCAPM KANDACE [id number] [facility] 2023-01-03 13:02:00 2023-01-03 13:02:00 Outpatient EL Jennifer, Brett HCAPM RADI [id number] [facility] 2022-12-14 12:20:00 2022-12-14 12:20:00 Outpatient EL Jennifer, Brett HCACL LABO [id number] [facility] 2022-12-14 06:10:00 2022-12-14 06:10:00 Outpatient EL Jennifer, Brett HCAPM DIALLO [id number] [facility] 2022-12-03 12:49:00 2022-12-05 14:36:00 Inpatient EM Eyad Brandynmorgan HCAPM MEDI.01 [id number] [facility] 2022-12-02 18:34:00 2022-12-02 18:34:00 Outpatient EL Grace Castano HCACL LABO [id number] [facility] 2022-11-20 15:41:00 2022-11-24 20:02:00 Inpatient EM Glen Nava HCAPM MEDI.01 [id number] [facility] 2022-11-20 16:14:00 2022-11-20 16:14:00 Outpatient Glen Nava HCACL LABO [id number] [facility] 2022-11-07 06:14:00 2022-11-07 09:20:00 Emergency EM Rony Hickey HCAPM SHMUEL [id number] [facility] 2022-11-01 17:19:00 2022-11-04 16:13:00 Inpatient EM Bj Oneal HCAPM TELE [id number] [facility] 2022-11-01 22:37:00 2022-11-01 22:37:00 Outpatient Bj Oneal HCACL LABO [id number] [facility] 2021-09-28 23:24:00 2021-09-29 22:18:00 Inpatient Ron Pelayo [facility] ICU [id number] [facility] 2021-09-28 23:24:00 2021-09-29 22:18:00 Inpatient Ron Pelayo [facility] ICU [id number] [facility] 2021-09-29 17:44:00 2021-09-29 17:44:00 Out[facility] [id number] [facility] 2021-09-19 05:20:00 2021-09-19 05:20:00 Outpatient GC_SWHAWPRC _Lotze_P PRIV PRIV [id number] [facility] 2021-09-18 04:18:00 2021-09-18 04:18:00 Outpatient GC_SWHAWPRC _Lotze_P PRIV PRIV [id number] [facility] 2021-09-18 00:00:00 2021-09-18 00:00:00 Mary Kay Robertson, [employer] G[employer] WEIGHER: [address], [address], [place] [address] , Ph. [phone] formerly [facility] - GC_SWHAWPRC _Nas Office* [id number] [facility] 2021-09-18 00:00:00 2021-09-18 00:00:00 Outpatient Mary Kay Robertson [facility] [id number] 2021-09-08 02:12:00 2021-09-08 02:12:00 Outpatient GC_SWHAWPRC _Lotze_P PRIV PRIV [id number] [facility] 2021-08-30 19:42:00 2021-08-31 01:46:00 Emergency EM Robyn Henry [facility] [id number] [facility] 2021-08-30 19:42:00 2021-08-31 01:46:00 Emergency EM Robyn Henry [facility] [id number] [facility] 2021-08-30 04:41:00 2021-08-30 04:41:00 Outpatient GC_SWHAWPRC _Lotze_P PRIV PRIV [id number] [facility] Medical Results Test Description Test Time Test Comments Results Result Co mments Source BASIC METABOLIC [id number] 05:28:00* Test Item Value Reference Range Interpretation [...] CA) 8.1 MG/DL 8.5-10.1 L CBC W/AUTO [id number] 05:05:00* Test Item Value Reference Range Interpretation [...] K/mm3 0.0-0.1 N - CT HEAD/BRAIN W/O [id number] 09:42:00 [facility] 1980 Sex: F Name: EMIR BELLO [facility] : 1980 Age/S: 43 / F [address] Unit #: [id number] Loc: [place] [address] Phys: Torsten Craig APRNNP Acct: [id number] Dis Date: Status: ADM IN PHONE #: [phone] Exam Date: 04/10/2023 0920 FAX #: Reason: Hallucination EXAMS: CPT: [id number] CT HEAD/BRAIN W/O CONT 06933 Location Code: S17 EXAMINATION: - CT HEAD/BRAIN [...] and/or kV according to patient size, and/or ite rative reconstruction. COMPARISON: CT head November 01, 2022. FINDINGS: Intracranial: No abnormal brain parenchymal density. No evidence of acute intracranial hemorrhage, mass effect, or abnormal extra-axial fluid collection. The ventricles are symmetric. No midline shift. Vascular: The larger dural v enous sinuses are grossly normal. No significant atherosclerotic plaque. Sinuses: The visualized paranasal sinuses and mastoid air cells are predominantly clear. Bones: The osseous structures are intact. The orbits appear symmetric. IMPRESSION: No CT evidence of acute intracranial process. at 0942 Reported and signed by: Feliciano Barriga M.D. CC: Bj Oneal MD; Torsten Craig; Jam Tolliver MD Technologist:CLIVE ANGULO CTDI: DLP: Trnscb Date/Time: 04/10/2023 (0942) [email or web address] Orig Print D/T: S: 04/10/2023 (6169) PAGE 1 SignedReportCBC W/AUTO [id number] 07:24:00* Test Item Value Reference Range Interpretation [...] code = NRBC#) 0.0 K/mm3 0.0-0.1 N [id number] 06:45:00* Test Item Value Reference Range Interpretation Comme nts PHOSPHOROUS (test code = PHOS) 2.0 MG/DL 2.5-4.9 L [id number] 06:45:00* Test Item Value Reference Range Interpretation Comme nts MAGNESIUM (test code = MAG) 2.1 MG/DL 1.8-2.4 N COMPREHENSIVE METABOLIC [id number] 06:44:00* Test Item Value Reference Range Interpretation [...] code = ALKP) 67 Unit/L 45-117 N [id number] 06:19:00* Test Item Value Reference Range Interpretation Comme nts AMMONIA (test code = AMM) < 10 mcMOL/L 11-32 L DRUGS OF ABUSE SCREEN [id number] 02:45:00* Test Item Value Reference Range Interpretation [...] interpret this result as normal/abnormal. GLUCOSE BEDSIDE [id number] 11:27:00* Test Item Value Reference Range Interpretation Comme nts GLUCOSE BEDSIDE TESTING (brooke t code = GLUBED) 88 mg/dL 70-110 N - CT ABD PELVIS W/O [id number] 12:20:00 [facility] 1980 Sex: F Name: EMIR BELLO [facility] : 1980 Age/S: 43 / F [address] Unit #: [id number] Loc: [place] [address] Phys: Trinh Schumacher Acct: [id number] Dis Date: Status: REG ER PHONE #: [phone] Exam Date: 04/08/2023 1051 FAX #: Reason: flankpain w/ureteral stent EXAMS: CPT: [id number] CT ABD PELVIS W/O CONT 33333 Location Code: S17 EXAMINATION: - CT ABD PELVIS W/O CONT CLINICAL INDICATION: Female, 43 years old with flank pain w/ureteral stent TECHNIQUE: Thin section axial noncontrast contiguous images were obtained through the abdomen and pelvis followed by coronal and sagittal multiplanar reformations. One or more of the followingdose reduction techniques were used: Automated exposure control, adjustment of the mA and/or kV according to patient size, and/or iterative reconstruction. Unless otherwise specified, incidental findings do not require dedicated imaging follow-up. COMPARISON: None FINDINGS: Characterization of the solid organs is limited by lack of contrast media. Lower Chest: Visualized lung bases are clear. Heart is enlarged. Pericardial effusion measures up to 1.7 cm in thickness.. Liver: Liver is enlarged to 18 cm in length. Bile ducts are of normal caliber. Gallbladder: No radiodense gallstones. Pancreas: No evidence of focal pancreatic mass or peripancreatic fluid collection. Spleen: Normal in size and contour. Adrenals: Normal configuration. Kidneys and ureters: There is a stent in the right renal collecting system with the distal portion in the urinary bladder. There is no evidence of significant hydronephrosis. There is moderate right perinephric stranding and mild induration involving the proximal portion of the right ureter. No evidence of left-sided obstructive PAGE 1 Signed Report (CONTINUED) Name: DAVID BELLO HQIRRO JUAN PABLO [facility] : 1980 Age/S: 43 / F [address] Unit #: [id number] Loc: [place] [address] Phys: Trinh Schumacher Acct: [id number] Dis Date: Status: REG ER PHONE #: [phone] Exam Date: 04/08/2023 1051 FAX #: Reason: flank pain w/ureteral stent EXAMS: CPT: [id number] CT ABD PELVIS W/O CONT 99684 (Continued) uropathy. Slightly increased attenuation within the renal medulla/pyramids bilaterally. Uterus is grossly unremarkable. Bowel: No evidence of bowel obstruction. Normal appendix. Small amount of free fluid in the pelvis. Lymph nodes: There are no pathologically enlarged abdominopelvic lymph nodes. Retroperitoneum: No mass or hemorrhage. Normal caliber unenhanced abdominal aorta. Abdominal wall: No hernia or mass. Bones: No evidence for acute osseous abnormality. IMPRESSION: There is a stent in the right renal collecting system with the distal portion in the urinary bladder. No evidence of significant hydronephrosis. A 4 mm stone is present adjacent to the stent near the right ureterovesicular junction. Moderate right perinephric stranding and mild induration involving the proximal portion of the right ureter suggest infection or inflammation. at 1220 Reported and signed by: Feliciano Barriga M.D. CC: Jam Tolliver MD; Trinh MENJIVAR Technologist:CLIVE ANGULO CTDI: DLP: Trnscb Date/Time: 04/08/2023 (1220) [email or web address] Orig Print D/T: S: 04/08/2023 (8555) PAGE 2 Signed ReportUA RFLX MICR CULT IF [id number] 12:18:00* Test Item Value Reference Range Interpretation [...] code = HCGQLU) NEGATIVE NEGATIVE BASIC METABOLIC [id number] 11:12:00* Test Item Value Reference Range Interpretation [...] CA) 8.7 MG/DL 8.5-10.1 N HEPATIC FUNCTION [id number] 11:12:00* Test Item Value Reference Range Interpretation [...] ALKP) 71 Unit/L 45-117 N TROP-I HIGH [id number] 11:12:00* Test Item Value Reference Range Interpretation [...] results and URLs may varyby method. LACTIC [id number] 11:12:00* Test Item Value Reference Range Interpretation Comme nts LACTIC ACID (test code = LACT) 1.1 mmol/L 0.4-2.0 N - XR CHEST 1 [id number] 10:48:00 [facility] : 1980 Sex: F Name: EMIR BELLO JUAN PABLO [facility] : 1980 Age/S: 43 / F [address] [facility] [address] Unit #: [id number] Loc: [place] [address] Phys: Trinh Schumacher Acct: [id number] Dis Date: Status: REG ER PHONE #: [phone] Exam Date: 04/08/2023 1108 FAX #: Reason: Code Sepsis EXAMS: CPT: [id number] XR CHEST 1 V 52959 Fluoro Time: DAP (Gy m2): Air Kerma (mGy): STUDY: Chest radiograph HISTORY: Sepsis COMPARISON: 11/24/2022 TECHNIQUE: Frontal view of the chest. LOCATION: H19 FINDINGS: The cardiac silhouette is unremarkable. There is no focal consolidation, pleural effusion, or pneumothorax. No acute osseous abnormalities are identified. IMPRESSION: No radiographic evidence for acute pulmonary abnormality. at 1048 Reported and signed by: Shaq Pena M.D. CC: Jam Tolliver MD; Trinh MENJIVAR PAGE1 Signed Report Name: DAVID BELLO [facility] : 1980 Age/S: 43 / F [address] Unit #: [id number] Loc: [place] [address] Phys: Trinh Schumacher Acct: [id number] Dis Date: Status: REG ER PHONE #: [phone] Exam Date: 04/08/2023 1102 FAX #: Reason: Code Sepsis EXAMS: CPT: [id number] XR CHEST 1 V 79379 Fluoro Time: DAP (Gy m2): Air Kerma (mGy): (Continued) Technologist: Jay Chavez, RT,(R),(CT) Trnscb Date/Time: 04/08/2023 (2412) t.SDR.[email or web address] OrigPrint D/T: S: 04/08/2023 (3272) PAGE 2 Signed ReportCBC W/AUTO [id number] 10:37:00* Test Item Value Reference Range Interpretation [...] code = NRBC#) 0.0 K/mm3 0.0-0.1 N [facility] [id number] 14:50:00 [facility] HQ[facility] N : 1980 Sex: F [facility]: EMIR [facility] 1980 Age/S: 42 / F [address] Unit #: [id number] Loc: [place] [address] Phys: Brett Rodriguez MD Acct: [id number] Dis Date: Status: REG CLI PHONE #: [phone] Exam Date: 01/03/2023 1400 FAX #: Reason: RENAL CALCULI EXAMS: CPT: [id number] US RETROPERITONEAL COM 02157 ULTRASOUND: - US RETROPERITONEAL COM History: Kidney [...] Reported and signed by: Shaq Ramos M.D. CC: Javi Cuadra MD; Brett Rodriguez MD Technologist: Linnette Holloway Trnwib Date/Time: 01/03/2023 (6730) Drew .RM61 PAGE 1 Signed Report Name: [facility] 1980 Age/S: 42/ F [address] Unit #: [id number] Loc: [place] [address] Phys: Brett Rodriguez MD Acct: [id number] Dis Date: Status: REG CLI PHONE #: [phone] Exam Date: 01/03/2023 1400 FAX #: Reason: RENAL CALCULI EXAMS: CPT: [id number] [place] COM 49036 (Continued) Orig Print D/T: S: 01/03/2023 (1453) Probe: PAGE 2 Signed Report- XR FLUOROSCOPY 0-60 [id number] 09:37:00[facility] HQIRRO N : 1980 Sex: F Name: EMIR BELLO HQMOJGANO N [facility] : 1980 Age/S: 42 / F [address] Unit #: [id number] Loc: [place] [address] Phys: Brett Rodriguez MD Acct: [id number] Dis Date: Status: [facility] PHONE #: [phone] Exam Date: 12/14/2022 0900 FAX #: Reason: CYSTO EXAMS: CPT: [id number] XR FLUOROSCOPY 0-60 MIN 29277 Fluoro Time: 23.3 DAP (Gy m2): Air Kerma (mGy): 5.5 Location Code: S17 Fluoroscopy was provided by the Department of Radiology for cystogram. A Radiologist was notpresent for the procedure. Please refer to the surgeon's operative report. One fluoroscopic spot image was submitted. Total exposure time: 23.3 seconds. Cumulative Air Kerma: 5.5 mGy. at 0937 Reported and signed by: Feliciano Barriga M.D. CC: Javi Cuadra MD; Brett Rodriguez MD PAGE 1 Signed Report Name: DAVID BELLO HQIRRO N [facility] 1980 Age/S: 42 / F [address] Unit #: [id number] Loc: [place] [address] Phys: Brett Rodriguez MD Acct: [id number] Dis Date: Status: REG [facility] PHONE #: [phone] Exam Date: 12/14/2022 0900 FAX #: Reason: CYSTO EXAMS: CPT: [id number] XR FLUOROSCOPY 0-60 MIN 62620 Fluoro Time: 23.3DAP (Gy m2): Air Kerma (mGy): 5.5 (Continued) Technologist: Sejal Encarnacion Trnscb Date/Time: 12/14/2022 (936) [email or web address] Orig Print D/T: S: 12/14/2022 (8860) PAGE 2 Signed ReportCBC W/AUTO DIFF 2022-12-14 07:17:00* Test Item Value Reference Range Interpretation [...] = MDIFF) NO DIFF/SCN CRITERIA BASIC METABOLIC [id number] 07:03:00* Test Item Value Reference Range Interpretation [...] CA) 8.4 MG/DL 8.5-10.1 L GLUCOSE BEDSIDE [id number] 07:02:00* Test Item Value Reference Range Interpretation Comme nts GLUCOSE BEDSIDE TESTING (brooke t code = GLUBED) 132 mg/dL 70-110 H UR HCG [id number] 06:57:00* Test Item Value Reference Range Interpretation Comme nts UR HCG QUAL (test code = HCGQLU) NEGATIVE NEGATIVE GLUCOSE BEDSIDE [id number] 12:30:00* Test Item Value Reference Range Interpretation Comme nts GLUCOSE BEDSIDE TESTING (brooke t code = GLUBED) 175 mg/dL 70-110 H GLUCOSE BEDSIDE [id number] 08:13:00* Test Item Value Reference Range Interpretation Comme nts GLUCOSE BEDSIDE TESTING (brooke t code = GLUBED) 127 mg/dL 70-110 H GLUCOSE BEDSIDE [id number] 22:36:00* Test Item Value Reference Range Interpretation Comme nts GLUCOSE BEDSIDE TESTING (brooke t code = GLUBED) 114 mg/dL 70-110 H GLUCOSE BEDSIDE [id number] 18:33:00* Test Item Value Reference Range Interpretation Comme nts GLUCOSE BEDSIDE TESTING (brooke t code = GLUBED) 106 mg/dL 70-110 N GLUCOSE BEDSIDE [id number] 12:05:00* Test Item Value Reference Range Interpretation Comme nts GLUCOSE BEDSIDE TESTING (brooke t code = GLUBED) 171 mg/dL 70-110 H GLUCOSE BEDSIDE [id number] 11:58:00* Test Item Value Reference Range Interpretation Comme nts GLUCOSE BEDSIDE TESTING (brooke t code = GLUBED) 171 mg/dL 70-110 H GLUCOSE BEDSIDE [id number] 07:29:00* Test Item Value Reference Range Interpretation Comme nts GLUCOSE BEDSIDE TESTING (brooke t code = GLUBED) 107 mg/dL 70-110 N CBC W/AUTO [id number] 05:38:00* Test Item Value Reference Range Interpretation [...] = MDIFF) NO DIFF/SCN CRITERIA BASIC METABOLIC [id number] 04:43:00* Test Item Value Reference Range Interpretation [...] CA) 7.8 MG/DL 8.5-10.1 L GLUCOSE BEDSIDE [id number] 21:21:00* Test Item Value Reference Range Interpretation Comme nts GLUCOSE BEDSIDE TESTING (brooke t code = GLUBED) 107 mg/dL 70-110 N GLUCOSE BEDSIDE [id number] 18:02:00* Test Item Value Reference Range Interpretation Comme nts GLUCOSE BEDSIDE TESTING (brooke t code = GLUBED) 187 mg/dL 70-110 H GLUCOSE BEDSIDE [id number] 12:20:00* Test Item Value Reference Range Interpretation Comme nts GLUCOSE BEDSIDE TESTING (brooke t code = GLUBED) 140 mg/dL 70-110 H GLUCOSE BEDSIDE [id number] 08:04:00* Test Item Value Reference Range Interpretation Comme nts GLUCOSE BEDSIDE TESTING (brooke t code = GLUBED) 111 mg/dL 70-110 H COMPREHENSIVE METABOLIC [id number] 06:14:00* Test Item Value Reference Range Interpretation [...] ALKP) 87 Unit/L 45-117 N CBC W/AUTO [id number] 05:59:00* Test Item Value Reference Range Interpretation [...] = MDIFF) NO DIFF/SCN CRITERIA GLUCOSE BEDSIDE [id number] 20:05:00* Test Item Value Reference Range Interpretation Comme nts GLUCOSE BEDSIDE TESTING (brooke t code = GLUBED) 162 mg/dL 70-110 H COMPREHENSIVE METABOLIC [id number] 12:48:00* Test Item Value Reference Range Interpretation [...] = ALKP) 92 Unit/L 45-117 N HCG [id number] 12:39:00* Test Item Value Reference Range Interpretation Comme nts HCG SERUM (test code = HCG) < 1 mi-IU/ML 0-6 N 0 - 6 NOT PREGNA NT > 6 SUGGESTIVE OF EARLY RISES TWO FOLD EVERY 2 DAYS; SUGGEST RECONFIRMING AFTER 2 DAYS. 150,000-200,[address] TRIMESTER 10,000 - 50,000 2ND & 3RD TRIMESTER UA RFLX MICR CULT IF [id number] 12:36:00* Test Item Value Reference Range Interpretation [...] fL 7.0-10.5 H - XR CHEST 1 [id number] 13:23:00 [facility] HQ[facility] : 1980 Sex: F Name: EMIR BELLO [facility] : 1980 Age/S: 42 / F [address] Unit #: [id number] Loc: [place] [address] Phys: Grace Castano MD Acct: [id number] Dis Date: Status: ADM IN PHONE #: [phone] Exam Date: 11/24/2022 1315 FAX #: Reason: PICC LINE EXAMS: CPT: [id number] XR CHEST 1 V 80608 Fluoro Time: DAP (Gy m2): Air Kerma (mGy): H 20 TIME OF STUDY: 11/24/2022 1:10 PM REASON FOR EXAM: PICC LINE COMPARISON: November 01, 2022 FINDINGS: AP view of the chest was obtained. Support devices: Left arm approach PICC [...] PAGE 1 Signed Report Name: DAVID BELLO HQLONNIE Hernandez [facility] : 1980 Age/S: 42 / F [address] Unit #: [id number] Loc: [place] [address] Phys: Grace Castano MD Acct: [id number] Dis Date: Status: ADMIN PHONE #: [phone] Exam Date: 11/24/2022 1315 FAX #: Reason: PICC LINE EXAMS: CPT: [id number] XR CHEST 1 V 04867 Fluoro Time: DAP (Gy m2): Air Kerma (mGy): (Continued) Technologist: Jay Chavez RT,(R),(CT) Trnscb Date/Time: 11/24/2022 (1323) Drew.SI1 Orig Print D/T: S: 11/24/2022 (9417) PAGE 2 Signed Report- XR FLUOROSCOPY 0-60 [id number] 22:47:00 [facility] : 1980 Sex: F Name: EMIR BELLO HQMOJGANRavi N [facility] : 1980 Age/S: 42 / F [address] Unit #: [id number] Loc: [place] [address] Phys: Glen Nava MD Acct: [id number] Dis Date: Status: ADM IN PHONE #: [phone] Exam Date: 11/21/2022 1824 FAX #: Reason: R CYSTO RETRO STENTPLACEMENT EXAMS: CPT: [id number] XR FLUOROSCOPY 0-60 MIN 50778 Fluoro Time: 110 SEC DAP (Gy m2): Air Kerma (mGy): EXAM: - XR FLUOROSCOPY 0-60 MIN LOCATION: 01 CLINICAL HISTORY/INDICATION: R CYSTO RETRO STENT PLACEMENT FINDINGS: Intraoperative fluoroscopy was provided by the radiology department. Fluoroscopy time: 110.1 seconds Cumulative air kerma: 58.40 mGy Fluoroscopic guidance for ureteral stent placement. IMPRESSION: Fluoroscopic guidance as above. at 2245 Reported and signed by: Víctor Boyle M.D. CC: Javi Cuadra MD; Glen Nava MD PAGE 1 Signed Report Name: DAVID BELLO HQIRRO N [facility] [place] : 1980 Age/S: 42 / F [address] Unit #: [id number] Loc: [place] [address] Phys: Glen Nava MDAcct: [id number] Dis Date: Status: ADM IN PHONE #: [phone] Exam Date: 11/21/2022 1824 FAX #: Reason: R CYSTO RETRO STENT PLACEMENT EXAMS: CPT: [id number] XR FLUOROSCOPY 0-60 MIN 66247 Fluoro Time: 110 SEC DAP (Gy m2): Air Kerma (mGy): (Continued) Technologist: Ubaldo Valencia, RT(R) Trnscb Date/Time: 11/21/2022 (223) t.SDR.TH15 Orig Print D/T: S: 11/21/2022 (0510) PAGE 2 Signed ReportUR HCG [id number] 17:33:00* Test Item Value Reference Range Interpretation Comme nts UR HCG QUAL (test code = HCGQLU) NEGATIVE NEGATIVE COVID 19 INHOUSE [id number] 17:13:00* Test Item Value Reference Range Interpretation Comme nts COVID 19 INHOUSE AG (test code = [id number]) NEGATIVE Negative Per principal process engineer , negative results should be treated aspresumptive [...] and symptoms consistent with COVID-19. GLUCOSE BEDSIDE [id number] 16:34:00* Test Item Value Reference Range Interpretation Comme nts GLUCOSE BEDSIDE TESTING (brooke t code = GLUBED) 114 mg/dL 70-110 H UA RFLX MICR CULT IF [id number] 13:26:00* Test Item Value Reference Range Interpretation [...] 100.4 FSOURCE OF URINE: CLEAN CATCHGLUCOSE BEDSIDE [id number] 11:50:00* Test Item Value Reference Range Interpretation Comme nts GLUCOSE BEDSIDE TESTING (brooke t code = GLUBED) 151 mg/dL 70-110 H CBC W/AUTO [id number] 09:30:00* Test Item Value Reference Range Interpretation [...] ode = MDIFF) YES DIFF/SCN CRITERIA WBC [id number] 09:30:00* Test Item Value Reference Range Interpretation [...] 1+ ON SCAN NONE PLATELET COUNT W/ [id number] 09:30:00* Test Item Value Reference Range Interpretation [facility] PLATELET ESTIMATE (test code = PLTEST) ADEQUATE THOUSAND ADEQUATE PLATELET MORPHOLOGY (test code = PLTMORPH) NORMAL PROTHROMBIN [id number] 08:54:00* Test Item Value Reference Range Interpretation [facility] PT PATIENT (test code = PTP) [...] Infarction (to prevent recurrent infarct). THROMBOPLASTIN TIME [id number] 08:54:00* Test Item Value Reference Range Interpretation [facility] THROMBOPLASTIN TIME PARTIAL (test code = PTT) 30.9 SECONDS 26-35 N [id number] 08:54:00* Test Item Value Reference Range Interpretation [facility] FIBRINOGEN (test code = FIB) 842 mg/dL 185-453 H COMPREHENSIVE METABOLIC [id number] 08:52:00* Test Item Value Reference Range Interpretation [facility] SODIUM (test code = NA) 133 [...] code = ALKP) 162 Unit/L 45-117 H [id number] 08:52:00* Test Item Value Reference Range Interpretation Comme nts MAGNESIUM (test code = MAG) 1.6 MG/DL 1.8-2.4 L LACTIC [id number] 08:52:00* Test Item Value Reference Range Interpretation Comme nts LACTIC ACID (test code = LACT) 1.3 mmol/L 0.4-2.0 N GLUCOSE BEDSIDE [id number] 07:36:00* Test Item Value Reference Range Interpretation Comme nts GLUCOSE BEDSIDE TESTING (brooke t code = GLUBED) 98 mg/dL 70-110 N CBC W/AUTO [id number] 06:44:00* Test Item Value Reference Range Interpretation [...] ode = MDIFF) YES DIFF/SCN CRITERIA WBC [id number] 06:44:00* Test Item Value Reference Range Interpretation [...] = PLTMORPH) OCC LARGE PLATELET BASIC METABOLIC [id number] 05:14:00* Test Item Value Reference Range Interpretation [...] CA) 7.6 MG/DL 8.5-10.1 L GLUCOSE BEDSIDE [id number] 21:16:00* Test Item Value Reference Range Interpretation Comme nts GLUCOSE BEDSIDE TESTING (brooke t code = GLUBED) 155 mg/dL 70-110 H LACTIC [id number] 20:49:00* Test Item Value Reference Range Interpretation Comme nts LACTIC ACID (test code = LACT) 1.2 mmol/L 0.4-2.0 N GLUCOSE BEDSIDE [id number] 18:43:00* Test Item Value Reference Range Interpretation Comme nts GLUCOSE BEDSIDE TESTING (brooke t code = GLUBED) 156 mg/dL 70-110 H - US RETROPERITONEAL [id number] 16:41:00 [facility] : 1980 Sex: F Name: EMIR BELLO HQIRRO N [facility] : 1980 Age/S: 42 / F [address] Unit #: [id number] Loc: [place] [address] Phys: Trinh Schumacher Acct: [id number] Dis Date: Status: ADM IN PHONE #: [phone] Exam Date: 11/20/2022 1623 FAX #: Reason: R renal pole stone EXAMS: CPT: [id number] US RETROPERITONEAL COM 10405 EXAM: - US RETROPERITONEAL COM LOCATION: U19 HISTORY: R renal pole stone TECHNIQUE: Grayscale B-mode and color Doppler sonographic images of the kidneys were performed. Dedicated grayscale B-mode and color Doppler pelvic imaging of the urinary bladder was also performed. COMPARISON: CT abdomen and pelvis 11/01/2022 FINDINGS: The right kidneymeasures 13.7 x 6.5 x 5.9 cm. Normal [...] stone noted in the right renal pelvis. Electronically Signedby Sandi Nath on 11/20/2022 at 1641 Reported and signed by: Ramin Nath D.O. CC: Javi Cuadra MD; Trinh MENJIVAR; Link An MD Technologist: Kristen Rosa, RT Trnwib Date/Time: 11/20/2022 (164) MckaylaJW22 PAGE 1 Signed Report Name: EMIR BELLO HQIRRO N [facility] [place] : 1980 Age/S: 42 / F [address] [address] Unit #: [id number] Loc: [place] [address] Phys: Trinh Schumacher Acct: [id number] Dis Date: Status: ADM IN PHONE #: [phone] Exam Date: 11/20/2022 1623 FAX #: Reason: R renal pole stone EXAMS: CPT: [id number] US ROOOMERS COM 30319 (Continued) Orig Print D/T: S: 11/20/2022 (1644) Probe: PAGE 2 Signed ReportLACTIC [id number] 16:11:00* Test Item Value Reference Range Interpretation Comme nts LACTIC ACID (test code = LACT) 2.2 mmol/L 0.4-2.0 H CBC W/AUTO [id number] 16:03:00* Test Item Value Reference Range Interpretation [...] ode = MDIFF) YES DIFF/SCN CRITERIA WBC [id number] 16:03:00* Test Item Value Reference Range Interpretation [...] (test code = PLTMORPH) NORMAL COMPREHENSIVE METABOLIC [id number] 14:58:00* Test Item Value Reference Range Interpretation [...] = ALKP) 178 Unit/L 45-117 H LACTIC [id number] 14:45:00* Test Item Value Reference Range Interpretation Comme nts LACTIC ACID (test code = LACT) 3.6 mmol/L 0.4-2.0 H UA RFLX MICR CULT IF [id number] 14:21:00* Test Item Value Reference Range Interpretation [...] URINE: CLEAN CATCHUA RFLX MICR CULT IF [id number] 09:11:00* Test Item Value Reference Range Interpretation [...] Flank PainSOURCE OF URINE: CLEAN CATCHBASIC METABOLIC [id number] 07:07:00* Test Item Value Reference Range Interpretation [...] CA) 8.1 MG/DL 8.5-10.1 L CBC W/AUTO [id number] 07:02:00* Test Item Value Reference Range Interpretation [...] = MDIFF) NO DIFF/SCN CRITERIA UR HCG [id number] 06:59:00* Test Item Value Reference Range Interpretation Comme nts UR HCG QUAL (test code = HCGQLU) NEGATIVE NEGATIVE GLUCOSE BEDSIDE [id number] 12:08:00* Test Item Value Reference Range Interpretation Comme nts GLUCOSE BEDSIDE TESTING (brooke t code = GLUBED) 93 mg/dL 70-110 N GLUCOSE BEDSIDE [id number] 08:11:00* Test Item Value Reference Range Interpretation Comme nts GLUCOSE BEDSIDE TESTING (brooke t code = GLUBED) 118 mg/dL 70-110 H BASIC METABOLIC [id number] 05:38:00* Test Item Value Reference Range Interpretation [...] CA) 8.1 MG/DL 8.5-10.1 L GLUCOSE BEDSIDE [id number] 16:30:00* Test Item Value Reference Range Interpretation Comme [facility] GLUCOSE BEDSIDE TESTING (brooke t code = GLUBED) 142 mg/dL 70-110 H GLUCOSE BEDSIDE [id number] 11:39:00* Test Item Value Reference Range Interpretation Comme [facility] GLUCOSE BEDSIDE TESTING (brooke t code = GLUBED) 139 mg/dL 70-110 H GLUCOSE BEDSIDE [id number] 07:27:00* Test Item Value Reference Range Interpretation Comme [facility] GLUCOSE BEDSIDE TESTING (brooke t code = GLUBED) 98 mg/dL 70-110 N GLYCOSYLATED HEMOGLOBIN [id number] 05:43:00* Test Item Value Reference Range Interpretation Comme [facility] GLYCOSYLATED HEMOGLOBIN (HA1 C) (test code = GLYHGB) 6.5 % A1C 0.0-5.7 H ESTIMATED AVERAGE GLUCOSE (t est code = EAG) 140 MG/DLest COMPREHENSIVE METABOLIC [id number] 05:07:00* Test Item Value Reference Range Interpretation [...] ALKP) 59 Unit/L 45-117 N GLUCOSE BEDSIDE [id number] 20:35:00* Test Item Value Reference Range Interpretation Comme nts GLUCOSE BEDSIDE TESTING (brooke t code = GLUBED) 86 mg/dL 70-110 N UA RFLX MICR CULT IF [id number] 17:51:00* Test Item Value Reference Range Interpretation [...] UA BLOOD DIPSTICK (test code = YAIMA) 1+ mg/DL NEG A UA PH DIPSTICK [...] = UACULT) YES,WBC>10 & EPI<25 Criteria Culture K Indication for culture: Suprapubic PainSOURCE OF URINE: CLEAN CATCH- CT ABD PELVIS W/[id number] 15:23:00 [facility] JAQUAN BELLOCorbyGAVIN HQIRRO N : 1980 Sex: F Name: EMIR BELLO HQLONNIE Hernandez [facility] : 1980 Age/S: 42 / F [address] [address] Unit #: [id number] Loc: [place] [address] Phys: Teddy Fernandez MD Acct: [id number] Dis Date: Status: REG ER PHONE #: [phone] Exam Date: 11/01/2022 8432 FAX #: Reason: abd pain EXAMS: CPT: [id number] CT ABD PELVIS W/CONT 42696 HISTORY: Chest pain, vomiting, urination difficulty, dysuria. [...] as well. The ureteral diameter distally appears george intact. Gas bubbles are seen in the upper pole. PAGE 1 Signed Report (CONTINUED) Name: DAVID BELLO HQIRRO N [facility] : 1980 Age/S: 42 / F [address] [address] Unit #: [id number] Loc: [place] [address] Phys: Teddy Fernandez MD Acct: [id number] Dis Date: Status: REG ER PHONE #: [phone] Exam Date: 11/01/2022 1506 FAX #: Reason: abd pain EXAMS: CPT: [id number] CT ABD PELVIS W/CONT 02911 (Continued) Left kidney does not show any [...] Gas bubbles likely represent gas-forming organism from infection.Some gas also present in the bladder, likely representing additional findings of infection. Left kidney intact. No acute bowel loop abnormality. CHEST with no evidence of infiltrate. Small to moderate pericardial effusion possibly trace left pleural effusion. No infiltrates. Location: U19 at 1523 Reported and signed by: Shaq Ramos M.D. PAGE 2 Signed Report (CONTINUED) Name: DAVID BELLO HQIRRO N [facility] : 1980 Age/S: 42 / F [address] Unit #: [id number] Loc: [place] [address] Phys: Teddy Fernandez MD Acct: [id number] Dis Date: Status: REG ER PHONE #: [phone] Exam Date: 11/01/2022 1509 FAX #: Reason: abd pain EXAMS: CPT: [id number] CT ABD PELVIS W/CONT 49556 (Continued) CC: Javi Cuadra MD; Teddy Fernandez MD Technologist:Jay Chavez RT,(R),(CT) CTDI: DLP: Trnscb Date/Time: 11/01/2022 (1523) tKATHIERM61 Orig Print D/T: S: 11/01/2022 (1526) PAGE 3 Signed Report- CT CHEST W/[id number] 15:23:00 [facility] HQLONNIE Hernandez : 1980 Sex: F Name: EMIR BELLO HQMOJGANO David [facility] : 1980 Age/S: 42 / F [address] Unit #: [id number] Loc: [place] [address] Phys: Teddy Fernandez MD Acct: [id number] Dis Date: Status: REG ER PHONE #: [phone] Exam Date: 11/01/2022 1396 FAX #: Reason: chest pain EXAMS: CPT: [id number] CT CHEST W/CONTRAST 85070 HISTORY: Chest pain, vomiting, urination difficulty, dysuria. [...] 1 Signed Report (CONTINUED) Name: DAVID BELLO [facility] : 1980 Age/S: 42 / F [address] [address] Unit #: [id number] Loc: [place] [address] Phys: Teddy Fernandez MD Acct: [id number] Dis Date: Status: [facility] PHONE #: [phone] Exam Date: 11/01/2022 1443 FAX #: Reason: chest pain EXAMS: CPT: [id number] CT CHEST W/CONTRAST 08922 (Continued) Left kidney does not show any [...] the bladder, likely representing additional findings of infection.Left kidney intact. No acute bowel loop abnormality. CHEST with no evidence of infiltrate. Small tomoderate pericardial effusion possibly trace left pleural effusion. No infiltrates. Location: U19 at 1523 Reported and signed by: Shaq Ramos M.D. PAGE 2 Signed Report (CONTINUED) Name: DAVID BELLO HQMOJGANO N [facility] : 1980 Age/S: 42 / F [address] [address] Unit #: [id number] Loc: [place] [address] Phys: Teddy Fernandez MD Acct: [id number] Dis Date: Status: REG ER PHONE #: [phone] Exam Date:11/01/2022 1505 FAX #: Reason: chest pain EXAMS: CPT: [id number] CT CHEST W/CONTRAST 79380 (Continued) CC: Javi Cuadra MD; Teddy Fernandez MD Technologist:Jay Chavez, RT,(R),(CT) CTDI: DLP: Tr nscb Date/Time: 11/01/2022 (1522) t.SDR.RM61 Orig Print D/T: S: 11/01/2022 (1526) PAGE 3 Signed Report- CT HEAD/BRAIN W/O [id number] 15:14:00 [facility] : 1980 Sex: F Name: EMIR BELLO HQMOJGANO N [facility] : 1980 Age/S: 42 / F [address] [facility] Unit #: [id number] Loc: [place] [address] Phys: Teddy Fernandez MD Acct: [id number] Dis Date: Status: REG ER PHONE #: [phone] Exam Date: 11/01/2022 1503 FAX #: Reason: dizziness not feeling well EXAMS: CPT: [id number] CT HEAD/BRAIN W/O CONT 08191 CLINICAL INFORMATION: Dizziness. Notfeeling well. Dictation Location: A 1 COMPARISON: No prior. Technique: CT was done in the usual fashion. Sagittal and coronal reconstructions. Examination was performed according to the departmental dose optimization program which includes automated exposure control, adjustment of the mA and/or kVpaccording to patient size and/or use of interactive [...] (1513) t.SDR.AGV Orig Print D/T: S: 11/01/2022 (0503)PAGE 1 Signed ReportHCG [id number] 13:04:00* Test Item Value Reference Range Interpretation Comme nts HCG SERUM (test code = HCG) < 1 mi-IU/ML 0-6 N 0 - 6 NOT PREGNA NT > 6 SUGGESTIVE OF EARLY RISES TWO FOLD EVERY 2 DAYS; SUGGEST RECONFIRMING AFTER 2 DAYS. 150,000-200,[address] TRIMESTER 10,000 - 50,000 2ND & 3RD TRIMESTER [id number] 10:48:00* Test Item Value Reference Range Interpretation Comme nts MAGNESIUM (test code = MAG) 2.3 MG/DL 1.8-2.4 N THYROID STIMULATING [id number] 10:48:00* Test Item Value Reference Range Interpretation Comme nts THYROID STIMULATING HORMONE (test code = TSH) 14.900 mcIU/ML 0.340-4.820 H BASIC METABOLIC [id number] 10:41:00* Test Item Value Reference Range Interpretation [...] CK) 105 Unit/L 26-192 N TROP-I HIGH [id number] 10:41:00* Test Item Value Reference Range Interpretation [...] results and URLs may varyby method. PROTHROMBIN [id number] 10:23:00* Test Item Value Reference Range Interpretation [...] Infarction (to prevent recurrent infarct). CBC W/O [id number] 10:08:00* Test Item Value Reference Range Interpretation [...] fL 7.0-10.5 H - XR CHEST 1 [id number] 09:49:00 [facility] HQLONNIE Hernandez : 1980 Sex: F Name: EMIR BELLO [facility] : 1980 Age/S: 42 / F [address] [address] Unit #: [id number] Loc: [place] [address] Phys: Teddy Fernandez MD Acct: [id number] Dis Date: Status: REG ER PHONE #: [phone] Exam Date: 11/01/2022 0932 FAX #: Reason: chest pain EXAMS: CPT: [id number] XR CHEST 1 V 72528 Fluoro Time: DAP (Gy m2): Air Kerma (mGy): EXAMINATION: - XR CHEST1 V HISTORY: Chest pain COMPARISON: Chest x-ray performed August 30, 2021 LOCATION CODE: C3 FINDINGS:Single frontal view of the chest is submitted for evaluation. The lungs are clear. The cardiac silhouette, mediastinum and pulmonary vasculature are unremarkable. The regional osseous structures areintact IMPRESSION: No acute radiographic abnormality Electronically Signed by Artur Pineda 11/01/2022 at 0949 Reported and signed by: Laverne Lee M.D. CC: Javi Cuadra MD; Garrett Fernandez MD PAGE 1 Signed Report Name: DAVID BELLO HQMOJGANO N [facility] : 1980 Age/S: 42 / F [address] [address] Unit #: [id number] Loc: [place] [address] Phys: Teddy Fernandez MD Acct: [id number] Dis Date: Status: REG ER PHONE #: [phone] Exam Date: 11/01/2022 0932 FAX #: Reason: chest pain EXAMS: CPT: [id number] XR CHEST 1 V 11912 Fluoro Time: DAP (Gy m2): Air Kerma(mGy): (Continued) Technologist: HANNA REDDING Trnscb Date/Time: 11/01/2022 (948) MckaylaAG38 Orig Print D/T: S: 11/01/2022 (9922) PAGE [address]/[id number] 17:01:00 * Test Item Value Reference Range Interpretation Comme nts FLUID SOURCE (test code = SOURCEFL) PERICARD FLUID COLOR (test code = COLFL) YELLOW YELLOW A FLUID APPEARANCE (test code = APPFL) CLEAR CLEAR FLUID WBC (test code = WBCFL) 409 /mm3 FLUID WBC REFERE NCE RANGE: Pleural, Peritoneal, and Peritoneal Dialysate: 0-100/nv4Snenczslhsp : 0-300/po4Ptjuglle: 0-150/mm3 ( <25% Neutophils) FLUID RBC (test code = RBCFL) 1000 /mm3 AFLUID RBC REFER ENCE RANGE: Pleural, Peritoneal, and Peritoneal Dialysate: 0/eq9Ugtytzcdqcs: <25,000/mm3 Synovial: 0/mm3 PATHOLOGIST INTERPRETATION (test code [...] % NONE SEEN SPEC COMMENTS: PERICARDIAL FLUIDFLUID [id number] 17:01:00* Test Item Value Reference Range Interpretation [...] 0.8 - 0.9 : : : : Vazquez Diaz V. Reference Intervals for Adults and Children 2008. Ninth Edition (V9.1) [employer], [facility]; [place]: September 2008.The method performance specifications have not beenestablished for this test in body fluid. The test resultshould be integrated into the clinical context forinterpretation.Performe d At: [facility] [address] [place], [place] [id number] Gregg Duckworth MD Ph:[phone] [Automated message] The system which generated this result transmitted reference range: (). The reference range was not used to interpret this result as normal/abnormal. SPEC COMMENTS: PERICARDIAL FLUIDCYTOLOGY NON [id number] 15:07:00* Test Item Value Reference Range Interpretation Comme nts CYTOLOGY NON SCOOP FILLER (test code = CR) RUN DATE: 10/04/21 [facility] - LAB PAGE 1 RUN TIME: 1507 Specimen Inquiry RUN USER: INTERFACE RICHARD ENT: KAMRAN BELLO LOC: [facility] U #: [id number] AGE/SX: 41/F ROOM: [facility] RE09/28/21REG DR: Ron Tipton MD : [birth year] BED: A DIS: 09/29/21 STATUS: DIS IN TLOC: SPEC #: [id number] RECD: 10/02/21 STATUS: BECKIE REChong #: [id number] DEVONTE: 09/29/[address]: Ron Tipton MD ENTERED: 10/02/21 SP TYPE: CYTO DOMENICO LION DR: Self Referred Jasper Hurst MD Undefined ProviderORDERED: 63190/2, ANATOMIC SPEC HISTOLOGY: TISSUE ID BLK PCS BARBRA LEV / PROCEDURE DISPOSITION ____ ___ ___ ___ ___ PERFL A 1 3 TISSUES: A. PERICARDIAL FLUID - Pericardium FINAL DIAGNOSIS PERICARDIUM, PERICARDIOCENTESIS: Mesotheliall cells. Reactive mesothelial cells. Ocassional small lymphocytes. Rare neutrophiles. No malignant cells seen. GROSS DESCRIPTION Received are 10 mL of yellow fluid. 10 mL [facility] cytospins. SHIRLEY/jerad Technical component performed at [facility] [facility], [facility], [address] MICROSCOPIC DESCRIPTION Performed. CLINICAL INFORMATION Pericardial Effusion ---- Signed SIGNATURE ON FILE Gurpreet Eckert 10/04/21 1507 END OF REPORT FLUID [id number] 19:52:00* Test Item Value Reference Range Interpretation [...] Children 2007. Ninth edition (V9.1) [employer] [facility]; [place]: September 2008.Please refer to [phone] for testing.10/03/2021 FLUID [id number] 19:52:00* Test Item Value Reference Range Interpretation Comme nts FLUID LDH (test code = LDHFL) 235 IUNITS/L Please refer to the following specimen for additional labresults. : BODY FLUID TYPE : LDH : : :____ : : : Nonmalignant: < 60% : [...] Intervals for Adults and Children 2007. Ninth Edition (V9.1) [facility]; [place]: September 2008.Please refer to [phone] for testing.10/03/2021 [id number] 20:58:00* Test Item Value Reference Range Interpretation Comme nts GLUBED (test code = GLUBED) 153 MG/DL 70-105 H - XR CHEST 2 [id number] 19:11:00 [facility] : 1980 Sex: FPatient Name: KAMRAN BELLO Unit No: [id number] EXAMS: CPT CODE: [id number] XR CHEST 2 V 87611 Location code: H5 Chest two views frontal [...] Printed Date/Time: 09/29/2021 (1913) Name: KAMRAN BELLO [facility] Phys: Ron Paula MD [address] : 1980 Age: 41 Sex: [place] [address] Loc: P.0590 A Exam Date: 09/29/2021 Status: ADM IN PH: FAX: PAGE 1 Signed ReportCOMPREHENSIVE METABOLIC [id number] 18:09:00* Test Item Value Reference Range Interpretation [...] New Reference Range Apr 2020 CBC W/AUTO [id number] 17:35:00* Test Item Value Reference Range Interpretation [...] BA#) 0.04 x10 3/uL 0.0-0.20 N RETIC [id number] 17:35:00* Test Item Value Reference Range Interpretation Comme nts RETIC CT AUTOMATED (test cod e = RETICA) 1.45 % 0.50-1.[address] ABSOLUTE (test code = RET#) 60.00 x10 3/uL 20.00-90.00 N [id number] 17:28:00* Test Item Value Reference Range Interpretation Comme nts GLUBED (test code = GLUBED) 91 MG/DL 70-105 N UR HCG [id number] 13:27:00* Test Item Value Reference Range Interpretation Comme nts UR HCG QUAL (test code = HCGQLU) NEGATIVE NEGATIVE [id number] 06:52:00* Test Item Value Reference Range Interpretation Comme nts TROPONIN-I (test code = TROPI) < 2.5 pg/mL 27.36-66.23 L Please note: Uni ts and Reference Range have changedFeb 2020 [id number] 04:27:00* Test Item Value Reference Range Interpretation Comme nts TROPONIN-I (test code = TROPI) < 2.5 pg/mL 27.36-66.23 L Please note: Uni ts and Reference Range have changedFeb 2020 COMPREHENSIVE METABOLIC [id number] 04:25:00* Test Item Value Reference Range Interpretation [...] Please note: New Reference Range Apr 2020 [id number] 04:25:00* Test Item Value Reference Range Interpretation Comme nts MAGNESIUM (test code = MAG) 2.1 mg/dL 1.6-2.6 N Please note: New Reference Range Apr 2020 CBC W/AUTO [id number] 03:40:00* Test Item Value Reference Range Interpretation [...] x10 3/uL 0.0-0.20 N COVID 19 INHOUSE [id number] 23:48:00* Test Item Value Reference Range Interpretation Comme nts COVID 19 INHOUSE AG (test code = [id number]) NEGATIVE NEGATIVE Negative results , from patients [...] signs and symptomsconsistent with COVID-19. B-TYPE NATRIURETIC [id number] 23:47:00* Test Item Value Reference Range Interpretation Comme nts B-TYPE NATRIURETIC PEPTIDE ( test code = BNP) 54 pg/mL <100 N [id number] 23:43:00* Test Item Value Reference Range Interpretation Comme nts TROPONIN-I (test code = TROPI) < 2.5 pg/mL 27.36-66.23 L Please note: Uni ts and Reference Range have changedApr 27, 2020 BASIC METABOLIC [id number] 23:40:00* Test Item Value Reference Range Interpretation [...] Range Apr 2020 - XR CHEST 1 [id number] 23:38:00 [facility] 1980 Sex: FPatient Name: KAMRAN BELLO Unit No: [id number] EXAMS: CPT CODE: [id number] XR CHEST 1 V [id number]: - XR CHEST 1 V COMPARISON: None [...] m2): Air Kerma (mGy): Trscr Dt/Tm: 09/28/2021 (1847) by:[email or web address] Printed Date/Time: 09/28/2021 (9624) Name: KAMRAN BELLO [facility] Phys: Avila Slater MD [address] : 1980 Age: 41 Sex: [place] [address] Loc: PJacquelineELTON 1 Exam Date: 09/28/2021tatus: ADM IN PH: FAX: PAGE 1 Signed ReportCBC W/AUTO [id number] 23:33:00* Test Item Value Reference Range Interpretation [...] 3/uL 0.0-0.20 N - XR CHEST 2 [id number] 00:00:00 [facility] HQIRRO David : 1980 Sex: F Patient Name: ACEDAVID HQLONNIE Hernandez Unit No: [id number] EXAMS: CPT CODE: [id number] XR CHEST 2 V 47705 PROCEDURE INFORMATION: Exam: XR Chest Exam date [...] García MD CC: Robyn Henry MD Technologist: RT Kate Trnscrbd D/ (0001) GCD.CPS Orig Print D/T: S: 08/31/2021 (0001) The [facility] NAME: ABIOLA BELLOHA HQMOJGANO N Radiology Department PHYS: Robyn Dahl MD [address] : 1980 AGE: 41 SEX: F [place], [place] [address] LOC: F.ERS PHONE #: [phone] EXAM DATE: 08/30/2021 STATUS: REG ER FAX #: [phone] RAD NO: Page 1 Signed ReportB-TYPE NATRIURETIC [id number] 23:45:00* Test Item Value Reference Range Interpretation Comme nts B-TYPE NATRIURETIC PEPTIDE ( test code = BNP) 19.57 pg/mL 0-100 N [id number] 23:31:00* Test Item Value Reference Range Interpretation Comme nts TROPONIN-I (test code = TROPI) 5.6 pg/mL <51.4 N Please Note:New method is in use for measuring Troponin Mar 09 2021Units are pg/mL which differs from the prior testmethodology (ng/mL) by a factor of 1000. COMPREHENSIVE METABOLIC [id number] 22:02:00* Test Item Value Reference Range Interpretation [...] ALKP) 171 units/L 46-116 H CBC W/AUTO [id number] 21:53:00* Test Item Value Reference Range Interpretation [...] NORMAL NORMAL UA RFLX MICR CULT IF [id number] 20:40:00* Test Item Value Reference Range Interpretation [...] for culture: Dysuria/FrequencySpecimen Description: CLEAN CATCHUR HCG [id number] 20:40:00* Test Item Value Reference Range Interpretation Comme nts UR HCG QUAL (test code = HCGQLU) NEGATIVE 1. Very dilute u rine specimens, as indicated by a lowspecific gravity, may not contain client services representative levels ofhCG. 2. False negative results may occur when the levels of hCGare below the sensitivity level of the test. If is still suspected, a first morningurine specimen should be collected 48 hours later andtested. Indication for culture: Dysuria/FrequencySpecimen Description: CLEAN CATCH- CT ABD PELVIS W/O [id number] 00:00:00 [facility] HQIRRO N : 1980 Sex: F Patient Name: ABIOLA BELLOHA HQIRRO N Unit No: [id number] EXAMS: CPT CODE: [id number] CT ABD PELVIS W/O CONT 42107 Radiation Dose CTDIVOL = 11.72 (mGy): DLP [...] matched to clinical indication); or iterative reconstruction. TOYIN RISON: No relevant prior studies available. RADIATION DOSE METRICS: CTDI volume (mGy): 11.72 Total DLP (mGy-cm): 582.49 FINDINGS: Heart: Moderate to large pericardial effusion partially included in the field of view measuring up to 3.5 cm thickness. Kfdi-dz-mbyfysjb bibasilar dependent atelectasis present with possible miniscule [...] overt hydronephrosis appreciated bilaterally. Ureters are unable to be followed in the entirety. Bilateral pelvic soft tissue calcifications are present measuring 5 mm on the right and 2 mm on the left. The [facility] NAME: ACEDAVID Hernandez Radiology Department PHYS: Robyn Dahl MD [address] : 1980 AGE: 41 SEX: [place] [address] LOC: TONIA PHONE #: [phone] EXAM DATE: 08/30/2021 STATUS: MOISES ER FAX #: [phone] RAD NO: Page 1 Signed Report 1 Patient Name: JAQUAN BELLORILEY Hernandez Unit No: [id number] EXAMS: CPT CODE: [id number] CT ABD PELVIS W/O CONT 21564 (Continued) Stomachand bowel: No abnormally dilated small or large bowel loops are seen. Colonic diverticulosis present. Appendix: No evidence of appendicitis. Intraperitoneal space: Right [...] in their entirety. Bilateral pelvic soft tissue calcificationsare seen. Nonobstructing distal right ureteral calculus cannot be completely excluded. 3. Nonspecific fatty injection/inflammation in the right lower quadrant. Recently passed calculus, ascending urinary tract infection, gonadal vein thrombosis, and other inflammatory processes can be considered. 4. Colonic diverticulosis. 5. Large pericardial effusion. at 2245 Reported and signed by: Darius Noonan MD CC: Robyn Henry MD Technologist: RT Mani CTDI: DLP: Trnscrbd D/ (2244) GCD.CPS The [facility] NAME: MIRELLA BELLOGUS Hernandez Radiology Department PHYS: Robyn Dahl MD [address] : 1980 AGE: 41 SEX: F [place], [place] [address] LOC: HelenERSPHONE #: [phone] EXAM DATE: 08/30/2021 STATUS: REG ER FAX #: [phone] RAD NO: Page 2 Signed Report 1 Patient Name: DAVID BELLORavi Hernandez Unit No: [id number] EXAMS: CPT CODE: [id number] CT ABD PELVIS W/O CONT 09085 (Continued) Orig Print D/T: S: 08/30/2021 (2246) The [facility] NAME: DAVID BELLO AWA Hernandez Radiology Department PHYS: Robyn Dahl MD [address] : 1980 AGE: 41 SEX: F [place] [address] LOC: TONIA PHONE #: [phone] EXAM DATE: 08/30/2021 STATUS: REG ER FAX #: [phone] RAD NO: Page 3 Signed Report 1 Notes Date/Time Note Provider Source 2023-05-15 04:07:00 [facility]) EMERGENCY PROVIDER REPORT REPORT#:[id number] REPORT STATUS: Signed DATE:05/15/23 TIME:406 PATIENT: DAVID BELLO HQLONNIE LEONARDNIT #: [id number] ROOM/BED: : [birth year] AGE: 43 SEX: F PCP PHYS: Jam Tolliver MD SERVICE AUTHOR: Samia Saldana DO * ALL edits or amendments must be made on the electronic/computer document * HPI-Palpit/Arrhyth Free Text HPI Notes Free Text HPI Notes 43 years old female with history of SVT status post ablation 2013 at [place] presents to the emergency room with palpitation the whole last 24 hours and patient was concerned and about chest pain and shortness of breath, as per EMS patient had bigeminy and her heart rate dropped to 40 rate, patient reported that she is not on any medication for arrhythmia, patient reported that she has follow-up at [facility] with Dr.Nawar Guillen [phone]. Patient denies fever or chills. General Initial Greet Date/Time 05/14/232156 Presentation Chief Complaint Palpitations Review of Systems ROS Statements All systems rev neg except as marked. Past Medical History - Adult Stated Complaint IRREGULAR HEART RHYTHM Allergies Coded Allergies: adhesive tape (Mild, HIVES 04/08/23) ertapenem (Mild, Itching 04/08/23) Iodinated Contrast Media (UNKNOWN 05/14/23) sumatriptan (From IMITREX) (ITCHY 04/08/23) Home Medications Active Scripts LOSARTAN (COZAAR) 25 MG PO DAILY 1800 LOSARTAN (COZAAR) 25 MG PO DAILY 1800 #30 TAB Ref 1 Prov: 11/04/22 LEVOTHYROXINE (SYNTHROID) 125 MCG PO DAILY 0700 LEVOTHYROXINE (SYNTHROID) 125 MCG PO DAILY 0700 #30 TAB Ref 1 Prov: 11/04/22 Reported Medications NITROFURANTOIN/NITROFURAN MAC (MACROBID) 100 MG PO BID CITALOPRAM (CeleXA) 10 MG PO DAILY traZODone (DESYREL) 50 MG PO BEDTIME HYDROCHLOROTHIAZIDE (HYDRODIURIL) 25 MG PO DAILY SEMAGLUTIDE (OZEMPIC PEN (4 MG/3mL)) 1 MG SUBQ Q7D Discontinued Reported Medications HYOSCYAMINE (LEVSIN) 0.125 MG PO Q4H PRN PRN BLADDER SPASMS Physical Exam Vital Signs Vital Signs First Documented: Result Date Time Pulse Ox 100 05/14 215 B/P 125/75 05/14 215 B/P Mean 91 05/14 2151 O2 Delivery Room air 05/14 2151 Pulse 70 05/14 215 Resp 18 05/14 2151 Last Documented: Result Date Time Pulse Ox 98 05/15 0500 B/P 128/74 05/15 0500 B/P Mean 92 05/15 0500 O2 Delivery Room air 05/15 0500 Pulse 62 05/15 0500 Resp 20 05/15 0500 Review of Vital Signs Reviewed Free Text PE Notes Free Text PE Notes Gen/Const: wake, alert, no acute distress, well appearing MS Head: normocephalic, atraumatic Neck: no midline ttp Eyes: PERRL b/l; EOM intact Ears/Nose/Throat: normal posterior oropharynx, TMs clear b/l Resp/Chest: lungs CTAB; no wheezes, rales, rhonchi, retractions Cardiovascular: rrr; no murmurs, gallops, or rubs; capillary refill less than 2 seconds; no chest ttp Abdomen/GI: soft, nontender, nondistended, bowel sounds equal and reactive MS Upper Extremity: Atraumatic, no abnormalities noted MS Lower Extremity: Atraumatic; no clubbing, cyanosis, or edema MS Back: No midline tenderness palpation; no step-offs or deformities Skin: Normal color; no rash present; no petechiae or purpura Neurologic: Awake, alert, oriented x4; cranial nerves II through XII intact; no motor deficits; no sensory deficit; normal cerebellar function; normal gait Interpretation Diagnostics Lab Results Interpretation Results Laboratory Tests 05/14/232327: [Embedded Image Not Available] Laboratory Tests: 05/14 2327 Chemistry Sodium (136 - [...] Date/Time Procedure - Status Source Growth 05/15 0420 MRSA Screen - ORD NASAL Recent Impressions: RADIOLOGY - XR CHEST 1 V 05/14 2244 Report Impression - Status: SIGNED Entered: 05/14/20232326 IMPRESSION: No acute finding Impression By: Jim - Rosalia Torre M.D. ECG #1 Interpretation Text/Dict Note Sinus rhythm 69 bpm, left axis, no ST segment elevation, QTc 454 Re-Evaluation MDM Free Text MDM Notes Free Text MDM Notes 43 years old female with history of SVT status post ablation 2016 at [place] who presents with palpitation, chest pain, shortness of breath, as per EMS bigeminy and bradycardia Differential includes arrhythmia, rule out acute coronary syndrome, electrolyte abnormalities Labs, EKG, chest x-ray, cardiac monitoring and respiratory support, reassess Re-Evaluation/Progress #1 Text/Dict Note Unremarkable labs, tropes negative, chest x-ray unremarkable, patient continued to have palpitation, chest pain or shortness of breath Patient was admitted under Dr. Nava, cardiology consulted Re-Evaluation/Progress #2 Text/Dict Note Patient was admitted, patient accepted admission images and after admission patient changed her mind, patient reported that she felt better and she thinks that she need to follow-up with her emissions engineer at [facility], patient after multiple discussions refused to stay in the hospital signed AGAINST MEDICAL ADVICE ED Course Medication(s) Ordered Medication(s) Ordered: Central Nervous System Agents Sig/Mona Start time Last Medication Dose Route Stop Time Status Admin Aspirin 325 MG DAILY 05/16 0900 DCD PO 06/14 0859 Patient Discharge Departure Vital Signs/Condition Vital Signs First Documented: Result Date Time Pulse Ox 100 05/14 2152 B/P 125/75 05/14 2152 B/P Mean 91 05/14 2152 O2 Delivery Room air 05/14 215 Pulse 70 05/14 2152 Resp 18 05/14 215 Last Documented: Result Date Time Pulse Ox 98 05/15 0500 B/P 128/74 05/15 0500 B/P Mean 92 05/15 0500 O2 Delivery Room air 05/15 0500 Pulse 62 05/15 0500 Resp 20 05/15 0500 All vital signs available at the time of this entry have been reviewed. Condition Stable Clinical Impression Clinical Impression Primary Impression: Chest pain Secondary Impressions: Palpitation Disposition Decision Hospitalize Hosp Physician Name Glen Nava MD Hosp Physician Hospitalist Request Time 415 Request Date 05/15/23 )( Accepts Hospitalization Yes )( Reason for Hospitalization chest pain , palpitation )( Accepted Time 415 )( Accepted Date 05/15/23 Call Information will see patient, agrees with eval, agrees with plan at [facility] #: [id number] END OF REPORT [facility] 2023-04-15 15:11:00 [facility] ([facility]) Hospitalist Discharge Summary REPORT#:[id number] REPORT STATUS: Signed REPORT INITIALIZATION DATE:04/15/23 TIME:1510 PATIENT: DAVID BELLO HQLONNIE ALMEIDA UNIT #: [id number] ROOM[address]BED: [address] : [birth year] AGE: 43 SEX: F ATTEND: Bj Oneal MD ADM AUTHOR: Bj Oneal MD REPT SERVICE DT/TIME: 04/15/231510 * ALL edits or amendments must be made on the electronic/computer document * General Information Discharge date: 04/15/23 Discharge diagnosis: MSSA UTI and bacteremia Hospital course: Ms. Bello is a 43-year-old woman who presents with complaint of right flank pain: #Acute complicated pyelonephritis 2/2 MSSA with bacteremia, complicated by migrated R ureteral stent and adjacent stone 4 mm History of ESBL E. coli infection, recurrent kidney stones, ureteral stents Urine and blood cx +MSSA Received cefazolin Discussed with ID Dr. Zepeda - repeat blood cx negative, plan to dc on IV nafcillin x 2 weeks Discussed with urologist Dr. Rodriguez - s/p endoscopy procedure and the migrated R ureteral stent and impacted stone were removed 04/09/23 Home health arranged for IV Nafcillin x 2 weeks. Midline placed. Will f/u outpatient #Acute kidney injury - resolved Likely prerenal #Hypokalemia Repleted #History of hypothyroidism Resume levothyroxine #History of NIDDM A1c 6.0 now #History of hypertension Hold losartan for FRANCI then resumed DVT prophylaxis SCDs, ambulatory CODE STATUS: Full code Med Rec Med Rec Discharge meds: Continue taking these medications: SEMAGLUTIDE (OZEMPIC PEN (4 MG/3mL)) 1 MG/0.75 ML [...] HOURS NEEDED. as needed for BLADDER SPASMS Objective VS/I O Last Documented: Result Date Time Pulse Ox 97 04/15 1221 B/P 142/82 04/15 1221 B/P Mean 101.9 04/15 1221 O2 Delivery Room air 04/15 1221 Temp 36.5 04/15 1221 Pulse 65 04/15 1221 Resp 16 04/15 1221 O2 Flow Rate 6 04/09 1101 Results Results: labs reviewed, vital signs reviewed Free Text Obj Notes Free Text Obj Notes: General appearance: awake, no acute distress Head/Eyes: atraumatic, normal conjunctiva/sclera, normal eyelids/periorbital area, normocephalic ENT: moist mucosal membranes Neck: supple Cardiovascular: regular rate rhythm Respiratory: symmetric expansion, no accessory muscle use Abdomen: soft, non-tender, no distention, no guarding Extremities: no edema, no cyanosis Musculoskeletal: normal muscle mass Neuro/PV DESIGN ENGINEER: alert, oriented X 3, normal speech, no motor deficits, no sensory deficits Skin: dry, intact, normal color, normal temperature, no rash Psychiatry: normal affect Discharge Instructions PCP PCP follow-up: PCP: Jam Tolliver MD Discharge to: Home Health [facility] of Care Additional Discharge Routines: PCP Follow-Up Diet: Regular Discharge management: greater than 30 mins Follow-up Appointments PCP follow-up: PCP: Jam Tolliver MD PCP follow up timeframe: In 1-2 weeks at 1510 RPT #: [id number] END OF REPORT [facility] 2023-04-15 09:02:00 [facility] ([facility] Infectious Dis. Progress Note REPORT#:[id number] REPORT STATUS: Signed REPORT INITIALIZATION DATE:04/15/23 TIME:09 PATIENT: DAVID BELLO UNIT #: [id number] ROOM/BED: [place] [address] : [birth year] AGE: 43 SEX: F ATTEND: Bj Oneal MD ADM AUTHOR: Paul Garrett MD REPT SERVICE DT/TIME: 04/15/23 0902 * ALL edits or amendments must be made on the electronic/computer document * Subjective Chief complaint: UTI HPI: Pt is on nafcillin. Last blood cxs are neg. Review of Systems Constitutional: Denies: fever. Objective General VS/I O: Vital Signs Date Temp Pulse Resp B/P B/P Mean Pulse Ox FiO2 04/14-04/15 36.6-37.0 59-64 16-17 118-158/70-90 86.0-111.8 94-99 Last [...] (lb): Weight (oz): Weight (kg): 94.545 Physical Exam General appearance: alert, awake Head/Eyes: atraumatic, clear cornea, EOMI, normal conjunctiva/sclera, normal eyelids/periorb, normocephalic Neck: full range of motion, non-tender, supple/no meningismus Cardiovascular: regular rate rhythm Respiratory: symmetric expansion, no distress Abdomen: non-tender, soft, no distention, no guarding Extremities: no clubbing, no cyanosis Neuro/PV DESIGN ENGINEER: alert, oriented X 3, CNII-XII intact, normal speech Skin: normal turgor, no rash Diagnosis, Assessment Plan Free Text A P: No new CBC Imaging: CTAP reviewed 04/08 CXR reviewed 04/08 Assessment: 1. Acute pyelonephritis. 2. Sepsis with MSSA bacteremia. TTE showed no vegetation. 3. Migrated right ureteral stent s/p removal 04/09/23. 4. Acute kidney injury. 5. Allergy to ertapenem. 6. H/o ESBL E. coli bacteremia and UTI 2022. Plan: 1. Nafcillin (day 7 total abxs). 2. Pt will need 2 weeks of therapy. End date: 04/26/23. 3. CM consulted to arrange home IV abx. 4. Urology following. 5. Monitor CBC. 6. Monitor kidney function. 7. Midline ordered. 8. Pt can be discharged from ID standpoint as soon as the home IV abxs are arranged. at 1107 RPT #: [id number] END OF REPORT [facility] 2023-04-14 20:54:00 [facility] ([facility]) Hospitalist Progress Note REPORT#:[id number] REPORT STATUS: Signed REPORT INITIALIZATION DATE:04/14/23 TIME:2053 PATIENT: DAVID BELLO HQMOJGANO JUAN PABLO UNIT #: [id number] ROOM/BED: [place] [address] : [birth year] AGE: 43 SEX: F ATTEND: Bj Oneal MD ADM AUTHOR: Bj Oneal MD REPT SERVICE DT/TIME: 04/14/232053 * ALL edits or amendments must be made on the electronic/computer document * Subjective External record No acute events overnight. Objective General VS/I O: Vital Signs: Date Time Temp Pulse Resp B/P B/P Pulse O2 O2 Flow FiO2 Mean Ox Delivery Rate 04/14 1910 36.8 59 17 158/89 111.8 [...] Weight (lb): Weight (oz): Weight (kg): 94.545 Medications: Active Meds + DC'd Last 24 Hrs Nafcillin Sodium (UNIPEN) 2 GM Q4HR IV Sodium Chloride (0.9% Sodium Chloride) 50 ML Trazodone HCl (DESYREL) 50 MG BEDTIME PO Citalopram Hydrobromide (CeleXA) 10 MG DAILY PO Docusate Sodium (COLACE) 100 MG BID PO Ondansetron HCl (ZOFRAN) 8 MG Q8H PRN PRN PO Ondansetron HCl (ZOFRAN) 8 MG Q8H PRN PRN IV Lactated Ringer's (LACTATED RINGERS) 1,000 ML .Q10H IV Levothyroxine Sodium (SYNTHROID) 125 MCG DAILY@0700 PO Acetaminophen (TYLENOL) 650 MG Q4H PRN PRN PO Results Results: labs reviewed, vital signs reviewed Free Text Obj Notes Free Text Obj Notes: General appearance: awake, no acute distress Head/Eyes: atraumatic, normal conjunctiva/sclera, normal eyelids/periorbital area, normocephalic ENT: moist mucosal membranes Neck: supple Cardiovascular: regular rate rhythm Respiratory: symmetric expansion, no accessory muscle use Abdomen: soft, non-tender, no distention, no guarding Extremities: no edema, no cyanosis Musculoskeletal: normal muscle mass Neuro/PV DESIGN ENGINEER: alert, oriented X 3, normal speech, no motor deficits, no sensory deficits Skin: dry, intact, normal color, normal temperature, no rash Psychiatry: normal affect Diagnosis, Assessment Plan Free Text DxA P Notes Free text DxA P notes: Ms. Bello is a 43-year-old woman who presents with complaint of right flank pain: #Acute complicated pyelonephritis 2/2 MSSA with bacteremia, complicated by migrated R ureteral stent and adjacent stone 4 mm History of ESBL E. coli infection, recurrent kidney stones, ureteral stents Urine and blood cx +MSSA Discussed with ID Dr. Zepeda - repeat blood cx pending, if negative at 48h will dc on IV nafcillin for 2 weeks Discussed with urologist Dr. Rodriguez - s/p migrated R ureteral stent and impacted stone that were removed 04/09/23 Pending insurance approval for home IV nafcillin. Midline ordered. #Acute kidney injury Likely prerenal Resolved with IV fluids Trend BMP #Hypokalemia P.o. repletion #History of hypothyroidism Resume levothyroxine #History of NIDDM Last A1c 6.5 11/14 Recheck A1c #History of hypertension Hold losartan for FRANCI DVT prophylaxis SCDs, ambulatory CODE STATUS: Full code at 2056 RPT #: [id number] END OF REPORT [facility] 2023-04-13 16:57:00 [facility] ([facility]) Hospitalist Progress Note REPORT#:[id number] REPORT STATUS: Signed REPORT INITIALIZATION DATE:04/13/23 TIME:1656 PATIENT: DAVID BELLO HQIRRO JUAN PABLO UNIT #: [id number] ROOM/BED: [place] [address] : [birth year] AGE: 43 SEX: F ATTEND: Bj Oneal MD ADM AUTHOR: Bj Oneal MD REPT SERVICE DT/TIME: 04/13/231656 * ALL edits or amendments must be made on the electronic/computer document * Subjective Free Text Subj Notes Free Text Subj Notes: No acute events overnight. No insurance approval for IV antibiotics at home yet. Objective General VS/I O: Vital Signs: Date Time Temp Pulse Resp [...] Weight (lb): Weight (oz): Weight (kg): 94.545 Medications: Active Meds + DC'd Last 24 Hrs Nafcillin Sodium (UNIPEN) 2 GM Q4HR IV Sodium Chloride (0.9% Sodium Chloride) 50 ML Trazodone HCl (DESYREL) 50 MG BEDTIME PO Citalopram Hydrobromide (CeleXA) 10 MG DAILY PO Docusate Sodium (COLACE) 100 MG BID PO Ondansetron HCl (ZOFRAN) 8 MG Q8H PRN PRN PO Ondansetron HCl (ZOFRAN) 8 MG Q8H PRN PRN IV Lactated Ringer's (LACTATED RINGERS) 1,000 ML .Q10H IV Levothyroxine Sodium (SYNTHROID) 125 MCG DAILY@0700 PO Acetaminophen (TYLENOL) 650 MG Q4H PRN PRN PO Results Results: labs reviewed, vital signs reviewed Free Text Obj Notes Free Text Obj Notes: General appearance: awake, no acute distress Head/Eyes: atraumatic, normal conjunctiva/sclera, normal eyelids/periorbital area, normocephalic ENT: moist mucosal membranes Neck: supple Cardiovascular: regular rate rhythm Respiratory: symmetric expansion, no accessory muscle use Abdomen: soft, non-tender, no distention, no guarding Extremities: no edema, no cyanosis Musculoskeletal: normal muscle mass Neuro/PV DESIGN ENGINEER: alert, oriented X 3, normal speech, no motor deficits, no sensory deficits Skin: dry, intact, normal color, normal temperature, no rash Psychiatry: normal affect Diagnosis, Assessment Plan Free Text DxA P Notes Free text DxA P notes: Ms. Bello is a 43-year-old woman who presents with complaint of right flank pain: #Acute complicated pyelonephritis 2/2 MSSA with bacteremia, complicated by migrated R ureteral stent and adjacent stone 4 mm History of ESBL E. coli infection, recurrent kidney stones, ureteral stents Urine and blood cx +MSSA Discussed with ID Dr. Zepeda - repeat blood cx pending, if negative at 48h will dc on IV nafcillin for 2 weeks Discussed with urologist Dr. Rodriguez - s/p migrated R ureteral stent and impacted stone that were removed 04/09/23 Pending insurance approval for home IV nafcillin #Acute kidney injury Likely prerenal Resolved with IV fluids Trend BMP #Hypokalemia P.o. repletion #History of hypothyroidism Resume levothyroxine #History of NIDDM Last A1c 6.5 11/14 Recheck A1c #History of hypertension Hold losartan for FRANCI DVT prophylaxis SCDs, ambulatory CODE STATUS: Full code at 1701 RPT #: [id number] END OF REPORT [facility] 2023-04-13 10:23:00 [facility] ([facility]) Infectious Dis. Progress Note REPORT#:[id number] REPORT STATUS: Signed REPORT INITIALIZATION DATE:04/13/23 TIME:1023 PATIENT: DAVID BELLO HQIRRO JUAN PABLO UNIT #: [id number] ROOM/BED: [place] [address] : [birth year] AGE: 43 SEX: F ATTEND: Bj Oneal MD ADM AUTHOR: Paul Garrett MD REPT SERVICE DT/TIME: 04/13/23 1023 * ALL edits or amendments must be made on the electronic/computer document * Subjective Chief complaint: UTI HPI: Pt is on nafcillin. Last blood cxs are neg. Review of Systems Constitutional: Denies: fever. Objective General VS/I O: Vital Signs Date Temp Pulse Resp B/P B/P Mean Pulse Ox FiO2 04/12-04/13 36.6-37.2 49-62 14-18 107-148/66-89 79.9-108.8 92-99 Last Documented: Result Date Time Pulse Ox 96 04/13 730 B/P 148/89 04/13 730 B/P Mean 108.8 04/13 730 O2 Delivery Room air 04/13 730 Temp 36.6 04/13 730 Pulse 57 04/13 0631 Resp 15 04/13 0731 O2 Flow Rate [...] (lb): Weight (oz): Weight (kg): 94.545 Physical Exam General appearance: alert, awake Head/Eyes: atraumatic, clear cornea, EOMI, normal conjunctiva/sclera, normal eyelids/periorb, normocephalic Neck: full range of motion, non-tender, supple/no meningismus Cardiovascular: regular rate rhythm Respiratory: symmetric expansion, no distress Abdomen: non-tender, soft, no distention, no guarding Extremities: no clubbing, no cyanosis Musculoskeletal: no joint swelling Neuro/PV DESIGN ENGINEER: alert, oriented X 3, CNII-XII intact, normal speech Skin: normal turgor, no rash Diagnosis, Assessment Plan Free Text A P: No new CBC Imaging: CTAP reviewed 04/08 CXR reviewed 04/08 Assessment: 1. Acute pyelonephritis. 2. Sepsis with MSSA bacteremia. TTE showed no vegetation. 3. Migrated right ureteral stent s/p removal 04/09/23. 4. Acute kidney injury. 5. Allergy to ertapenem. 6. H/o ESBL E. coli bacteremia and UTI 2022. Plan: 1. Cefazolin (day 5 total abxs). 2. Pt will need 2 weeks of therapy. End date: 04/26/23. 3. CM consulted to arrange home IV abx. 4. Urology following. 5. Monitor CBC. 6. Monitor kidney function. 7. Midline ordered. 8. Pt can be discharged from ID standpoint as soon as the home IV abxs are arranged. at 1026 RPT #: [id number] END OF REPORT [facility] 2023-04-13 08:10:00 [facility] Hospitalist Progress Note REPORT#:[id number] REPORT STATUS: Signed REPORT INITIALIZATION DATE:04/13/23 TIME:08 PATIENT: DAVID BELLO UNIT #: [id number] ROOM/BED: [place] [address] : 79 AGE: 43 SEX: F ATTEND: Bj Oneal MD ADM AUTHOR: Bj Oneal MD REPT SERVICE DT/TIME: 04/12/23 0810 * ALL edits or amendments must be made on the electronic/computer document * Subjective Chief complaint: Right flank pain Free Text Subj Notes Free Text Subj Notes: No acute events overnight. Looking forward to going home tomorrow. Awaiting final blood culture. Objective General VS/I O: Vital Signs: Date Time Temp Pulse Resp [...] Weight (lb): Weight (oz): Weight (kg): 94.545 Medications: Active Meds + DC'd Last 24 Hrs Nafcillin Sodium (UNIPEN) 2 GM Q4HR IV Sodium Chloride (0.9% Sodium Chloride) 50 ML Trazodone HCl (DESYREL) 50 MG BEDTIME PO Citalopram Hydrobromide (CeleXA) 10 MG DAILY PO Cefazolin Sodium (KEFZOL) 2 GM Q8HR IV (DC) Sterile Water (WATER FOR INJECTION) 20 ML Docusate Sodium (COLACE) 100 MG BID PO Ondansetron HCl (ZOFRAN) 8 MG Q8H PRN PRN PO Ondansetron HCl (ZOFRAN) 8 MG Q8H PRN PRN IV Lactated Ringer's (LACTATED RINGERS) 1,000 ML .Q10H IV Levothyroxine Sodium (SYNTHROID) 125 MCG DAILY@0700 PO Acetaminophen (TYLENOL) 650 MG Q4H PRN PRN PO Free Text Obj Notes Free Text Obj Notes: General appearance: awake, no acute distress Head/Eyes: atraumatic, normal conjunctiva/sclera, normal eyelids/periorbital area, normocephalic ENT: moist mucosal membranes Neck: supple Cardiovascular: regular rate rhythm Respiratory: symmetric expansion, no accessory muscle use Abdomen: soft, non-tender, no distention, no guarding Extremities: no edema, no cyanosis Musculoskeletal: normal muscle mass Neuro/PV DESIGN ENGINEER: alert, oriented X 3, normal speech, no motor deficits, no sensory deficits Skin: dry, intact, normal color, normal temperature, no rash Psychiatry: normal affect Diagnosis, Assessment Plan Free Text DxA P Notes Free text DxA P notes: Ms. Bello is a 43-year-old woman who presents with complaint of right flank pain: #Acute complicated pyelonephritis 2/2 MSSA with bacteremia, complicated by migrated R ureteral stent and adjacent stone 4 mm History of ESBL E. coli infection, recurrent kidney stones, ureteral stents Urine and blood cx +MSSA Discussed with ID Dr. Zepeda - repeat blood cx pending, if negative at 48h will dc on IV nafcillin for 2 weeks Discussed with urologist Dr. Rodriguez - s/p migrated R ureteral stent and impacted stone that were removed 04/09/23 #Acute kidney injury Likely prerenal Resolved with IV fluids Trend BMP #Hypokalemia P.o. repletion #History of hypothyroidism Resume levothyroxine #History of NIDDM Last A1c 6.5 11/14 Recheck A1c #History of hypertension Hold losartan for FRANCI DVT prophylaxis SCDs, ambulatory CODE STATUS: Full code at 0812 RPT #: [id number] END OF REPORT [facility] 2023-04-12 12:18:00 [facility] ([facility]) Infectious Dis. Progress Note REPORT#:[id number] REPORT STATUS: Signed REPORT INITIALIZATION DATE:04/12/23 TIME:1217 PATIENT: DAVID BELLO UNIT #: [id number] ROOM/BED: [place] [address] : 79 AGE: 43 SEX: F ATTEND: Bj Oneal MD ADM AUTHOR: Palu Garrett MD REPT SERVICE DT/TIME: 04/12/23 1218 * ALL edits or amendments must be made on the electronic/computer document * Subjective Chief complaint: UTI HPI: MSSA grew in blood and urine cxs. WBC normal. Objective Physical Exam Head/Eyes: atraumatic, clear cornea, EOMI, normal conjunctiva/sclera, normal eyelids/periorb, normocephalic Neck: full range of motion, non-tender, supple/no meningismus Cardiovascular: regular rate rhythm Respiratory: symmetric expansion, no distress Abdomen: non-tender, soft, no distention, no guarding Extremities: no clubbing, no cyanosis Neuro/PV DESIGN ENGINEER: alert, oriented X 3, CNII-XII intact, normal speech Skin: normal turgor, no rash Diagnosis, Assessment Plan Free Text A P: Laboratory Tests 04/11/23427: [Embedded Image Not Available] 04/11/23426: [Embedded Image Not Available] Imaging: CTAP reviewed 04/08 CXR reviewed 04/08 Assessment: 1. Acute pyelonephritis. 2. Sepsis with MSSA bacteremia. TTE showed no vegetation. 3. Migrated right ureteral stent s/p removal 04/09/23. 4. Acute kidney injury. 5. Allergy to ertapenem. 6. H/o ESBL E. coli bacteremia and UTI 2022. Plan: 1. Cefazolin (day 5 total abxs). 2. Pt will need 2 weeks or more of IV abxs. 3. CM consulted to arrange home IV abx. 4., Urology following. 6. Monitor CBC. 7. Monitor kidney function. 8. PICC line tomorrow if blood cxs remain neg. at 1702 RPT #: [id number] END OF REPORT [facility] 2023-04-11 21:07:00 [id number] [facility] [id number] [place] [id number] PATIENT NAME: DAVID BELLO ADMIT DATE: 04/08/23 ACCOUNT NO: [id number] ROOM NO: [facility] AGE: 43 REPORT TYPE: eECHOCARDIOGRAM REPORT SEX: F ADMITTING PHYSICIAN: Bj Oneal MD ATTENDING PHYSICIAN: Bj Oneal MD *[facility]* [address] [place] [address] Transthoracic Echocardiogram Patient: David Bello Study Date: 04/10/2023 BP: 119 / 74 URN: [id number] Location: : 1980 Age: 43 Gender: F Height: 65 in / 165.1 cm Weight: 208 lb / 94.3 kg BMI/BSA: 34.6 kg/m 2 / 2.12 m 2 *Ordering Physician: * Paul Garrett *Interpreting Physician: * Joseph Nava MD *Grain Broker And Market Operator: * Marixa Duenas Indications: R/o Endocarditis. Study data: Transthoracic echocardiogram. Procedure: A transthoracic echocardiogram was performed. Image quality was adequate. Complete 2D, complete spectral Doppler, color Doppler, and tissue Doppler. Location: Bedside. Patient status: Inpatient. Patient room number: S203. Study status: Routine. Heart rate: 76 bpm. Findings Left ventricle: The cavity size is normal. Wall thickness is mildly increased. Systolic function is normal. The estimated ejection fraction is 55-60%. Wall motion is normal; there are no regional wall motion abnormalities. Grade II diastolic dysfunction. PATIENT NAME: DAVID BELLO [facility] Right ventricle: The cavity size is normal. Systolic function is normal. Ventricular septum: The ventricular septum is normal. Left atrium: The atrium is mildly dilated. Right atrium: The atrium is normal in size. Aorta: Aortic root: The root is normal-sized. Aortic valve: The valve is structurally normal. The valve is trileaflet. There is no evidence of a vegetation. There is no evidence of stenosis. There is mild regurgitation. Mitral valve: The valve is structurally normal. There is no evidence of vegetation. There is no evidence of stenosis. There is moderate regurgitation. Tricuspid valve: The valve is structurally normal. There is no evidence of a vegetation. There is mild regurgitation. Pulmonic valve: The valve is structurally normal. There is no evidence of a vegetation. There is trace regurgitation. Pericardium: A pericardial effusion is identified. Pulmonary arteries: The main pulmonary artery is normal-sized. Systemic veins: Inferior vena cava: The IVC is normal-sized. Measurements [...] root ratio, MM 1.59 --------- PATIENT NAME: ACEDAVID ALMEIDA Right atrium Value Ref Area, ES 17 [...] 5.57 m/sec --------- Pulmonic valve Value Ref UT peak v 1.05 m/sec --------- UT peak grad 4 mm Hg --------- Tricuspid valve Value Ref TR peak v 2.9 m/sec <=2.8 Peak RV-RA grad, S 35 mm Hg --------- Aortic root Value Ref Root diam, ED MM 2.9 cm --------- Systemic veins Value Ref Estimated CVP 5 mm Hg --------- Pulmonary veins Value Ref A rev duration 107 ms --------- Conclusions PATIENT NAME: DAVDI BELLO HQIRRO JUAN PABLO Summary: 1. Left ventricle: The cavity size is normal. Wall thickness is mildly increased. Systolic function is normal. The estimated ejection fraction is 55-60%. Wall motion is normal; there are no regional wall motion abnormalities. Grade II diastolic dysfunction. 2. Left atrium: The atrium is mildly dilated. 3. Aortic valve: There is no evidence of a vegetation. The regurgitation pressure half-time is 1238 ms. 4. Mitral valve: There is no evidence of vegetation. There is moderate regurgitation. 5. Tricuspid valve: There is no evidence of a vegetation. The peak diastolic gradient is 34.8 mm Hg. The peak RV-RA systolic gradient is 35 mm Hg Indicating mild pulmonaryHypertension 6. Pulmonic valve: There is no evidence of a vegetation. 7. Pericardium, extracardiac: A pericardial effusion is identified. Impressions: No definitive signs of infective endocarditis are seen. If the clinical suspicion for infective endocarditis is high, please order a transesophageal echocardiogram. Electronically signed by Joseph Nava MD 04/11/2023 21:07 at 2107 PATIENT NAME: DAVID BELLO HQIRRO JUAN PABLO [facility] 2023-04-11 19:40:00 [facility] ([facility]) Hospitalist Progress Note REPORT#:[id number] REPORT STATUS: Signed REPORT INITIALIZATION DATE:04/11/23 TIME:1939 PATIENT: DAVID BELLO UNIT #: [id number] ROOM/BED: [place] [address] : 79 AGE: 43 SEX: F ATTEND: Bj Oneal MD ADM AUTHOR: Bj Oneal MD REPT SERVICE DT/TIME: 04/11/231939 * ALL edits or amendments must be made on the electronic/computer document * Subjective Free Text Subj Notes Free Text Subj Notes: No acute events overnight. Feels better overall. Objective General VS/I O: Vital Signs: Date Time Temp Pulse Resp [...] Weight (lb): Weight (oz): Weight (kg): 94.545 Medications: Active Meds + DC'd Last 24 Hrs Trazodone HCl (DESYREL) 50 MG BEDTIME PO Citalopram Hydrobromide (CeleXA) 10 MG DAILY PO Cefazolin Sodium (KEFZOL) 2 GM Q8HR IV Sterile Water (WATER FOR INJECTION) 20 ML Docusate Sodium (COLACE) 100 MG BID PO Pregabalin [...] 4 MG Q4H PRN PRN IV (DC) Results Results: labs reviewed, vital signs reviewed Free Text Obj Notes Free Text Obj Notes: General appearance: awake, no acute distress Head/Eyes: atraumatic, normal conjunctiva/sclera, normal eyelids/periorbital area, normocephalic ENT: moist mucosal membranes Neck: supple Cardiovascular: regular rate rhythm Respiratory: symmetric expansion, no accessory muscle use Abdomen: soft, non-tender, no distention, no guarding Extremities: no edema, no cyanosis Musculoskeletal: normal muscle mass Neuro/PV DESIGN ENGINEER: alert, oriented X 3, normal speech, no motor deficits, no sensory deficits Skin: dry, intact, normal color, normal temperature, no rash Psychiatry: normal affect Diagnosis, Assessment Plan Free Text DxA P Notes Free text DxA P notes: Ms. Bello is a 43-year-old woman who presents with complaint of right flank pain: #Acute complicated pyelonephritis 2/2 MSSA with bacteremia, complicated by migrated R ureteral stent and adjacent stone 4 mm History of ESBL E. coli infection, recurrent kidney stones, ureteral stents Urine and blood cx +MSSA Discussed with ID Dr. Zepeda - repeat blood cx pending, if negative at 48h will dc on IV nafcillin for 2 weeks Discussed with urologist Dr. Rodriguez - s/p migrated R ureteral stent and impacted stone that were removed 04/09/23 #Acute kidney injury Likely prerenal Continue IV fluids Trend BMP #Hypokalemia P.o. repletion #History of hypothyroidism Resume levothyroxine #History of NIDDM Last A1c 6.5 11/14 Recheck A1c #History of hypertension Hold losartan for FRANCI DVT prophylaxis SCDs pending procedure CODE STATUS: Full code at 1948 RPT #: [id number] END OF REPORT [facility] 2023-04-11 12:53:00 [facility] ([facility]) Infectious Dis. Progress Note REPORT#:[id number] REPORT STATUS: Signed REPORT INITIALIZATION DATE:04/11/23 TIME:125 PATIENT: DAVID BELLO UNIT #: [id number] ROOM/BED: [address] : 79 AGE: 43 SEX: F ATTEND: Bj Oneal MD ADM AUTHOR: Paul Garrett MD REPT SERVICE DT/TIME: 04/11/23 1253 * ALL edits or amendments must be made on the electronic/computer document * Subjective Chief complaint: UTI HPI: MSSA grew in blood and urine cxs. WBC normal. Review of Systems Constitutional: Denies: fever. Objective General VS/I O: Vital Signs Date Temp Pulse Resp B/P B/P [...] (lb): Weight (oz): Weight (kg): 94.545 Physical Exam General appearance: alert, awake Head/Eyes: atraumatic, clear cornea, EOMI, normal conjunctiva/sclera, normal eyelids/periorb, normocephalic Neck: full range of motion, non-tender, supple/no meningismus Cardiovascular: regular rate rhythm Respiratory: symmetric expansion, no distress Abdomen: non-tender, soft, no distention, no guarding Extremities: no clubbing, no cyanosis Musculoskeletal: no joint swelling Neuro/PV DESIGN ENGINEER: alert, oriented X 3, CNII-XII intact, normal speech Skin: normal turgor, no rash Diagnosis, Assessment Plan Free Text A P: Laboratory Tests 04/11/23427: [Embedded Image Not Available] 04/11/23426: [Embedded Image Not Available] Imaging: CTAP reviewed 04/08 CXR reviewed 04/08 Assessment: 1. Acute pyelonephritis. 2. Sepsis with MSSA bacteremia. 3. Migrated right ureteral stent s/p removal 04/09/23. 4. Acute kidney injury. 5. Allergy to ertapenem. 6. H/o ESBL E. coli bacteremia and UTI 2022. Plan: 1. Cefazolin (day 4 total abxs). 2. Pt will need 2 weeks or more of IV abxs. 3. TTE pending. 5. Urology following. 6. Monitor CBC. 7. Monitor kidney function. 8. PICC line once blood cxs are neg for 48 h. at 1446 RPT #: [id number] END OF REPORT [facility] 2023-04-10 22:17:00 [facility] ([facility]) Urology Progress Note REPORT#:[id number] REPORT STATUS: Signed REPORT INITIALIZATION DATE:04/10/23 TIME:2216 PATIENT: DAVID BELLO UNIT #: [id number] ROOM/BED: [place] [address] : 79 AGE: 43 SEX: F ATTEND: Bj Oneal MD ADM AUTHOR: Brett Rodriguez MD REPT SERVICE DT/TIME: 04/10/232216 * ALL edits or amendments must be made on the electronic/computer document * Subjective Chief complaint: migrated stent complicated uti Comments: no acute events c/o anxiety/panic last night pain improved no urinary symptoms Objective General VS/I O: Last Documented: Result Date Time Pulse Ox [...] (lb): Weight (oz): Weight (kg): 94.545 Physical Exam General appearance: alert, awake, oriented Respiratory: aerating well, symmetric expansion Abdomen: soft, no rebound, no distention Diagnosis, Assessment Plan Free Text A P: A: migrated ureteral stent, recent ureteroscopy complicated uti P: s/p cystoscopy and stent removal continue antibiotics follow up cultures at 2221 RPT #: [id number] END OF REPORT [facility] 2023-04-10 17:39:00 [facility] ([facility]) Hospitalist Progress Note REPORT#:[id number] REPORT STATUS: Signed REPORT INITIALIZATION DATE:04/10/23 TIME:1738 PATIENT: DAVID BELLO UNIT #: [id number] ROOM/BED: [place] [address] : 79 AGE: 43 SEX: F ATTEND: Bj Oneal MD ADM AUTHOR: Bj Oneal MD REPT SERVICE DT/TIME: 04/10/231738 * ALL edits or amendments must be made on the electronic/computer document * Subjective Free Text Subj Notes Free Text Subj Notes: Had episode of night terror last night that's really bothering her. She feels overwhelmed, but denies any SI/HI. Objective General VS/I O: Vital Signs: Date Time Temp Pulse Resp [...] 0700: 04/10 0700 04/09 1900 Intake Total 1999. 222 Output Total Balance 1999.00 222 Intake, IV 1200.00 Intake, Oral 800 222 Number Voids 11 PATIENT WEIGHT: Weight (lb): Weight (oz): Weight (kg): 94.545 Medications: Active Meds + DC'd Last 24 Hrs Trazodone HCl (DESYREL) 50 MG BEDTIME PO Citalopram Hydrobromide (CeleXA) 10 MG DAILY PO Cefazolin Sodium (KEFZOL) 2 GM Q8HR IV Sterile Water (WATER FOR INJECTION) 20 ML Docusate Sodium (COLACE) 100 MG BID PO Pregabalin (LYRICA) 75 MG BID PO Diphenhydramine HCl (BENADRYL) 25 MG ONCE ONE IV (DC) Hydrocodone Bitart/Acetaminophen (NORCO 5/325) 1 TAB PACU ONCE PRN PO ( DC) Hydrocodone Bitart/Acetaminophen (NORCO 10/325) 1 TAB PACU ONCE PRN PO ( DC) Hydromorphone HCl (DILAUDID) 0.5 MG PACU Q10MIN [...] (DC) Sodium Chloride (SODIUM CHLORIDE 0.9%) 100 ML Acetaminophen (TYLENOL) 650 MG Q4H PRN PRN PO Morphine Sulfate (morphine SULFATE) 4 MG Q4H PRN PRN IV Ondansetron HCl (ZOFRAN) 4 MG Q4H PRN PRN IV (CAN) Results Results: labs reviewed, vital signs reviewed Free Text Obj Notes Free Text Obj Notes: General appearance: awake, no acute distress Head/Eyes: atraumatic, normal conjunctiva/sclera, normal eyelids/periorbital area, normocephalic ENT: moist mucosal membranes Neck: supple Cardiovascular: regular rate rhythm Respiratory: symmetric expansion, no accessory muscle use Abdomen: soft, non-tender, no distention, no guarding Extremities: no edema, no cyanosis Musculoskeletal: normal muscle mass Neuro/PV DESIGN ENGINEER: alert, oriented X 3, normal speech, no motor deficits, no sensory deficits Skin: dry, intact, normal color, normal temperature, no rash Psychiatry: normal affect Diagnosis, Assessment Plan Free Text DxA P Notes Free text DxA P notes: Ms. Bello is a 43-year-old woman who presents with complaint of right flank pain: #Acute complicated pyelonephritis with R ureteral stent and adjacent stone 4 mm History of ESBL E. coli infection, kidney stones, ureteral stents Urine cx+ MSSA, Blood cx+ CoNS Discussed with ID Dr. Zepeda Discussed with urologist Dr. Rodriguez - s/p R ureteral stent removal 04/09/23 #Acute kidney injury Likely prerenal Continue IV fluids Trend BMP #Hypokalemia P.o. repletion #History of hypothyroidism Resume levothyroxine #History of NIDDM Last A1c 6.5 11/14 Recheck A1c #History of hypertension Hold losartan for FRANCI DVT prophylaxis SCDs pending procedure CODE STATUS: Full code at 1742 RPT #: [id number] END OF REPORT [facility] 2023-04-10 13:47:00 [facility] ([facility] Infectious Dis. Progress Note REPORT#:[id number] REPORT STATUS: Signed REPORT INITIALIZATION DATE:04/10/23 TIME:1346 PATIENT: DAVID BELLO UNIT #: [id number] ROOM/BED: [place] [address] : 79 AGE: 43 SEX: F ATTEND: Bj Oneal MD ADM AUTHOR: Paul Garrett MD REPT SERVICE DT/TIME: 04/10/23 1347 * ALL edits or amendments must be made on the electronic/computer document * Subjective Chief complaint: UTI HPI: MSSA grew in blood and urine cxs. WBC normal. Review of Systems Constitutional: Denies: fever. Objective General VS/I O: Vital Signs Date Temp Pulse Resp B/P B/P [...] (lb): Weight (oz): Weight (kg): 94.545 Physical Exam General appearance: awake Head/Eyes: atraumatic, clear cornea, EOMI, normal conjunctiva/sclera, normal eyelids/periorb, normocephalic Neck: full range of motion, non-tender, supple/no meningismus Cardiovascular: regular rate rhythm Respiratory: symmetric expansion, no distress Abdomen: non-tender, soft, no distention, no guarding Extremities: no clubbing, no cyanosis Musculoskeletal: no joint swelling Neuro/PV DESIGN ENGINEER: alert, oriented X 3, CNII-XII intact, normal speech Skin: normal turgor, no rash Diagnosis, Assessment Plan Free Text A P: Laboratory Tests 04/10/23 0520: [Embedded Image Not Available] Imaging: CTAP reviewed 04/08 CXR reviewed 04/08 Assessment: 1. Acute pyelonephritis. 2. Sepsis with MSSA bacteremia. 3. Migrated right ureteral stent s/p removal 04/09/23. 4. Acute kidney injury. 5. Allergy to ertapenem. 6. H/o ESBL E. coli bacteremia and UTI 2022. Plan: 1. Switch Zosyn to cefazolin (day 3 total abxs). 2. Pt will need 2 weeks or more of IV abxs. 3. Repeat blood cxs. 4. TTE. 5. Urology following. 6. Monitor CBC. 7. Monitor kidney function. 8. PICC line once blood cxs are neg for 48 h. at 1351 RPT #: [id number] END OF REPORT [facility] 2023-04-10 01:53:00 [facility] ([facility]) Clinical Note REPORT#:[id number] REPORT STATUS: Signed REPORT INITIALIZATION DATE:04/10/23 TIME:152 PATIENT: DAVID BELLO UNIT #: [id number] ROOM[address]BED: [address] : [birth year] AGE: 43 SEX: F ATTEND: Bj Oneal MD ADM AUTHOR: Torsten Craig REPT SERVICE DT/TIME: 04/10/23 0153 * ALL edits or amendments must be made on the electronic/computer document * Clinical Note Note: Nursing reported that patient complained of hallucination episodes. Arrival on the scene, patient was watching on her phone. She is alert and oriented x4, not in distress, looking upset. Per patient, she has been "perfectly fine" on Saturday and Saturday. Today around 12:30am she heard her [...] neuro focal deficit. Will check blood work cbc , cmp, UDS, ammonia. Will get head CT. Maybe due to side effects to zoysn. Will hold zoysn for now. at 0208 at 0820 RPT #: [id number] END OF REPORT [facility] 2023-04-09 23:10:00 [id number] [facility] [id number] [place] [address] PATIENT NAME: DAVID BELLO ADMIT DATE: 04/08/23 ACCOUNT NO: [id number] ROOM NO: S203 AGE: 43 REPORT TYPE: OPERATIVE REPORT SEX: F ADMITTING PHYSICIAN: Bj Oneal MD ATTENDING PHYSICIAN: Bj Oneal MD OPERATION DATE: 04/09/2023 ATTENDING SURGEON: Brett Rodriguez MD PREOPERATIVE DIAGNOSES: 1. Malpositioned right ureteral stent with migration. 2. Complicated urinary tract infection. POSTOPERATIVE DIAGNOSES: 1. Malpositioned right ureteral stent. 2. Complicated urinary tract infection. PROCEDURES PERFORMED: 1. Cystoscopy. 2. Right ureteroscopy. 3. Right ureteral stent removal ANESTHESIA: General. ESTIMATED BLOOD LOSS: None. FINDINGS: 1. No ureteral calculus. 2. Prior stent removed intact. DRAINS PLACED: None. SPECIMEN OBTAINED: Urine for culture. SEATING AND MOBILITY TECHNOLOGIST: None. INDICATIONS FOR PROCEDURE: David Bello is a 43-year-old female who I previously treated for a large lower pole right renal stone. She continued to have stone fragments and underwent a ureteroscopy about a month ago by another urologist, she has ureteral stent in place and was to followup to have the stent removed. She now comes in secondary to severe right-sided flank pain, complicated UTI. On CT imaging, the stent has migrated distally and the patient is having significant pain and discomfort related to this. On CT imaging, there appears to be a small ureteral stone at the distal ureter in the UVJ as well. I offered the patient a ureteroscopy for stone extraction, [...] manner. At this point, I inserted a 22-Czech rigid cystoscope into the bladder. I identified the previously placed right ureteral stent, stent had migrated distally into the bladder. I placed a wire alongside the stent and pulled the prior stent out intact. I now advanced a 7-Czech ureteroscope alongside the stent. I navigated this to the proximal ureter. There were no findings of any stones. No bruits, no lacerations. Ureter appeared to be pole dilated. I now withdrew the ureteroscope. I elected not to replace the stent. At the beginning of the case, I also obtained urine from the cystoscope for culture. This marked completion of the procedure, the patient tolerated the procedure well. There were no complications. Dictated By: Brett Rodriguez MD Date Dictated: 04/09/2023 23:10:00 Date Transcribed: 04/09/2023 23:29:35 PPH/QUS Receipt ID: [id number] Authenticated by Brett Rodriguez MD On 04/22/2023 08:30:41 PM at 0830 PATIENT NAME: DAVID BELLO HQLONNIE ALMEIDA [facility] 2023-04-09 15:45:00 [facility] ([facility]) Infect Disease Consult Note REPORT#:[id number] REPORT STATUS: Signed REPORT INITIALIZATION DATE:04/09/23 TIME:1544 PATIENT: DAVID BELLO UNIT #: [id number] ROOM/BED: [place] [address] : 79 AGE: 43 SEX: F ATTEND: Bj Oneal MD ADM AUTHOR: Paul Garrett MD REPT SERVICE DT/TIME: 04/09/231544 * ALL edits or amendments must be made on the electronic/computer document * History of Present Illness Chief complaint: UTI HPI: 43-year-old female with h/o recurrent UTI and ureteral stent placement, who presented with worsening severe right flank pain for 2 days associated with nausea. She sees a private urologist who is planning to take the ureteral stent out in a few weeks. History - Adult longitudinal Past medical history: Reports: Diabetes mellitus, Hypertension, Kidney disease/stones. Past surgical history: Reports: Thyroidectomy. Additional surgical history: reviewed. Kidney stone resetion. Additional family history: Mother with kidney stones Alcohol use: Denies EtOH use Drug use: Denies recreational drugs Smoking status for patients 13 years old or older: Light tobacco smoker Date last smoked: 03/29/23 Allergies: Coded Allergies: adhesive tape (Mild, HIVES 04/08/23) ertapenem (Mild, Itching 04/08/23) sumatriptan (From IMITREX) (ITCHY 04/08/23) Uncoded Allergies: CONTRAST (Mild, RASH 04/08/23) Review of Systems Constitutional: Reports: malaise. Skin: Denies: rash. Allergy/Immun: Denies hives Eyes: Denies discharge ENT: Denies: sore throat. Respiratory: Denies: productive cough (sputum). Cardiovascular: Denies: chest pain. GI: Denies: diarrhea. : Reports: flank pain. Musculoskeletal: Denies: joint swelling. Objective General VS/I O: Vital Signs Date Temp Pulse Resp B/P B/P [...] (lb): Weight (oz): Weight (kg): 94.545 Physical Exam General appearance: alert, awake, oriented, no acute distress, mental status normal, no respiratory distress Head/Eyes: atraumatic, clear cornea, EOMI, normal conjunctiva/sclera, normal eyelids/periorb, normocephalic ENT: moist mucosal membranes, normal nose Neck: full range of motion, non-tender, supple/no meningismus Cardiovascular: regular rate rhythm Respiratory: symmetric expansion, no distress Abdomen: non-tender, normal bowel sounds, soft, no distention, no guarding Genitourinary: flank pain Extremities: no clubbing, no cyanosis Musculoskeletal: no joint swelling Neuro/PV DESIGN ENGINEER: alert, oriented X 3, CNII-XII intact, normal speech Skin: normal turgor, no rash Psychiatry: normal affect, normal judgment/insight, normal mood Diagnosis, Assessment Plan Free Text DxA P Notes Free text DxA P notes: Laboratory Tests 04/08/23 1023: [Embedded Image Not Available] Imaging: CTAP reviewed 04/08 CXR reviewed 04/08 Assessment: 1. Acute pyelonephritis. 2. Migrated right ureteral stent s/p removal 04/09/23. 3. Acute kidney injury. 4. Allergy to ertapenem. 5. H/o ESBL E. coli bacteremia and UTI 2022. Plan: 1. Zosyn (day 2 total abxs). 2. F/u susceptiblities of S. aureus in urine cx. 3. Start empiric vancomycin if pt decompensates. 4. F/u blood cxs. 5. Will try to switch to a PO regimen (e.g. cephalexin) based on susceptiblities. 6. Linezolid is an option if pt stops taking hydrocodone and Tramadol. 7. Duration: 10 days if blood cxs remain neg. 8. Urology following. 9. Monitor CBC. 10. Monitor kidney function. Thank you for this consult. at 1274 RPT #: [id number] END OF REPORT [facility] 2023-04-09 11:26:00 [facility] ([facility]) Post Anesthesia Evaluation REPORT#:[id number] REPORT STATUS: Signed REPORT INITIALIZATION DATE:04/09/23 TIME:1126 PATIENT: DAVID BELLOIRRO JUAN PABLO UNIT #: [id number] ROOM/BED: [place] [address] : 79 AGE: 43 SEX: F ATTEND: Bj Oneal MD ADM AUTHOR: Radha Olivier MD REPT SERVICE DT/TIME: 04/09/23 1126 * ALL edits or amendments must be made on the electronic/computer document * Post Anesthesia Evaluation Anes. changes from pre-op eval ORM Surgeries: Surgery Date and Time: 04/09/2023929 Primary Procedure: CYSTOSCOPY URETEROSCOPY Anesthetic: general LMA Date: 04/09/23 Level of consciousness: no change, patient awake, able to answer questions, participate in this eval. Vital signs: Last Documented: Result Date Time Pulse Ox 99 04/09 1105 B/P 119/65 04/09 1105 O2 Delivery Room air 04/09 1105 Pulse 80 04/09 1105 Resp 13 04/09 1105 O2 Flow Rate 6 04/09 1101 Temp 36.6 04/09 1047 B/P Mean 79.3 04/09 0726 Cardiovascular: no change, CV system stable, vital signs stable Respiratory/Airway: respiratory system stable, maintains without support Pain: adequately controlled Hydration: euvolemic Temp status: normothermic Presence of N/V: no Anesthesia complications: no Conclusions: no apparent anes. issues at 1127 RPT #: [id number] END OF REPORT [facility] 2023-04-09 10:58:00 [facility] ([facility]) Brief Op Note REPORT#:[id number] REPORT STATUS: Signed REPORT INITIALIZATION DATE:04/09/23 TIME:1058 PATIENT: DAVID BELLOO JUAN PABLO UNIT #: [id number] ROOM/BED: [place] [address] : 79 AGE: 43 SEX: F ATTEND: Bj Oneal MD ADM AUTHOR: Brett Rodriguez MD REPT SERVICE DT/TIME: 04/09/23 1058 * ALL edits or amendments must be made on the electronic/computer document * Op/Inv Proc Note - Brief Pre-procedure diagnosis: migrated ureteral stent, ureteral calculi R Post-procedure diagnosis: same as pre procedure dx Procedures performed: right ureteroscopy, stent removal, cystoscopy Primary Surgeon: Jennifer Lands Resource Manager(s): none Findings: no ureteral calculi to proximal ureter Complications: none Estimated blood loss in ml's: none Specimens removed/altered: none Drain(s): None at 1059 RPT #: [id number] END OF REPORT [facility] 2023-04-09 10:41:00 [facility] Hospitalist Progress Note REPORT#:[id number] REPORT STATUS: Signed REPORT INITIALIZATION DATE:04/09/23 TIME:1041 PATIENT: DAVID BELLO UNIT #: [id number] ROOM/BED: [place] [address] : 79 AGE: 43 SEX: F ATTEND: Bj Oneal MD ADM AUTHOR: Bj Oneal MD REPT SERVICE DT/TIME: 04/09/23 1041 * ALL edits or amendments must be made on the electronic/computer document * Subjective Free Text Subj Notes Free Text Subj Notes: No acute events overnight. Planning for OR today. Objective General VS/I O: Vital Signs: Date Time Temp Pulse Resp [...] Weight (lb): Weight (oz): Weight (kg): 94.545 Medications: Active Meds + DC'd Last 24 Hrs Ketamine HCl (KETAMINE 50MG/ML 10ML) 0 .STK-MED ONE [...] (CAN) Sterile Water (WATER FOR INJECTION) 20 ML Lactated Ringer's (LACTATED RINGERS) 1,000 ML .Q10H IV Levothyroxine Sodium (SYNTHROID) 125 MCG DAILY@0700 PO Piperacillin Sod/Tazobactam Sod (ZOSYN) 3.375 GM Q8HR IV Sodium Chloride (SODIUM CHLORIDE 0.9%) 100 ML Sodium Chloride (0.9% Sodium Chloride) 1,000 ML .Q8H [...] FOR INJECTION) 10 ML Dietitian nutrition assessment Results Results: labs reviewed, vital signs reviewed Free Text Obj Notes Free Text Obj Notes: General appearance: awake, no acute distress Head/Eyes: atraumatic, normal conjunctiva/sclera, normal eyelids/periorbital area, normocephalic ENT: moist mucosal membranes Neck: supple Cardiovascular: regular rate rhythm Respiratory: symmetric expansion, no accessory muscle use Abdomen: soft, non-tender, no distention, no guarding Extremities: no edema, no cyanosis Musculoskeletal: normal muscle mass Neuro/PV DESIGN ENGINEER: alert, oriented X 3, normal speech, no motor deficits, no sensory deficits Skin: dry, intact, normal color, normal temperature, no rash Psychiatry: normal affect Diagnosis, Assessment Plan Free Text DxA P Notes Free text DxA P notes: Ms. Bello is a 43-year-old woman who presents with complaint of right flank pain: #Acute complicated pyelonephritis with R ureteral stent and adjacent stone 4 mm History of ESBL E. coli infection, kidney stones, ureteral stents Start IV Zosyn based on prior culture ID consult Urology was consulted from the ER plan for endoscopy today #Acute kidney injury Likely prerenal Continue IV fluids Trend BMP #Hypokalemia P.o. repletion #History of hypothyroidism Resume levothyroxine #History of NIDDM Last A1c 6.5 11/14 Recheck A1c #History of hypertension Hold losartan for FRANCI DVT prophylaxis SCDs pending procedure CODE STATUS: Full code at 1048 RPT #: [id number] END OF REPORT [facility] 2023-04-09 09:27:00 [id number] [address] PATIENT NAME: DAVID BELLO HQIRRO JUAN PABLO ADMIT DATE: 04/08/23 ACCOUNT NO: [id number] ROOM NO: [id number] AGE: 43 REPORT TYPE: CONSULTATION SEX: F [...] with urologist, but states she has not been able to do so. She returns secondary to [...] shortness of breath. Positive for dysuria, no gross hematuria. Otherwise, negative 10-point review of systems. PAST MEDICAL HISTORY: 1. Kidney stones. 2. Diabetes. 3. Hypertension. 4. Renal insufficiency. PAST SURGICAL HISTORY: 1. Ureteroscopy. 2. Thyroidectomy. SOCIAL HISTORY: Positive for tobacco. FAMILY HISTORY: Noncontributory. PHYSICAL EXAMINATION: VITAL SIGNS: T-max of 101.3, T-current is 97.9, pulse is 79, blood pressure PATIENT NAME: DAVID BELLO 124/70. GENERAL: The patient is not in acute distress, awake, oriented. HEENT: Atraumatic, normocephalic. EOMI. NECK: Supple. Trachea midline. LUNGS: Normal respiratory effort, nonlabored breathing. ABDOMEN: Soft. No rebound or guarding. BACK: No CVA tenderness. EXTREMITIES: No clubbing, cyanosis or edema. PERTINENT [...] By: Brett Rodriguez MD Date Dictated: 04/09/2023 09:27:59 Date Transcribed: 04/09/2023 10:28:15 [facility] Receipt ID: [id number] Authenticated by Brett Rodriguez MD On 04/22/2023 08:30:55 PM at 0830 PATIENT NAME: DAVID BELLO [facility] 2023-04-08 20:20:00 [facility] Hospitalist History Physical REPORT#:[id number] REPORT STATUS: Signed REPORT INITIALIZATION DATE:04/08/23 TIME:2019 PATIENT: DAVID BELLO UNIT #: [id number] ROOM/BED: [place] [address] : 79 AGE: 43 SEX: F ATTEND: Bj Oneal MD ADM AUTHOR: Bj Oneal MD REPT SERVICE DT/TIME: 04/08/232019 * ALL edits or amendments must be made on the electronic/computer document * History of Present Illness HPI Chief complaint: Right flank pain PCP: PCP: Jam Tolliver MD HPI: Ms. Bello is a 43-year-old woman who presents [...] weeks. However the last 2 days the patient developed severe right flank pain, nausea, and anorexia. Denies alcohol use. Smokes a few cigarettes a day. Has been told her kidney stones are calcium oxalate but etiology is unclear. History Past medical history: Reports: Diabetes mellitus, Hypertension, Kidney disease/stones. Past surgical history: Reports: Thyroidectomy. Additional surgical history: reviewed. Kidney stone resetion. Additional family history: Mother with kidney stones Alcohol use: Denies EtOH use Drug use: Denies recreational drugs Smoking status for patients 13 years old or older: Light tobacco smoker Date last smoked: 03/29/23 Medication/Allergy-Vaccine Hx Allergies: Coded Allergies: adhesive tape (Mild, HIVES 04/08/23) ertapenem (Mild, Itching 04/08/23) sumatriptan (From IMITREX) (ITCHY 04/08/23) Uncoded Allergies: CONTRAST (Mild, RASH 04/08/23) Review of Systems All systems rev neg: except as marked Objective General Medications: Active Meds + DC'd Last 24 Hrs Ceftriaxone Sodium (ROCEPHIN) 2,000 MG Q24H IV (CANr) Sterile Water (WATER FOR INJECTION) 20 ML Lactated Ringer's (LACTATED RINGERS) 1,000 ML .Q10H IV (UNV) Levothyroxine Sodium (SYNTHROID) 125 MCG .[DAILY 0700] PO (UNV) Piperacillin Sod/Tazobactam Sod (ZOSYN) 3.375 GM Q8HR IV (UNVr) Sodium Chloride (SODIUM CHLORIDE 0.9%) 100 ML Sodium Chloride (0.9% Sodium Chloride) 1,000 ML .Q8H [...] Sterile Water (WATER FOR INJECTION) 10 ML Acetaminophen (TYLENOL EXTRA STRENGTH) 1,000 MG X1ED STA PO (DC) Morphine Sulfate (morphine SULFATE) 4 MG X1ED STA IV (DC) Ondansetron HCl (ZOFRAN) 4 MG X1ED STA IV (DC) Sodium Chloride (0.9% Sodium Chloride) 2,836.35 ML X1ED STA IV (DC) Results Results: labs reviewed, vital signs reviewed Free Text Obj Notes Free Text Obj Notes: General appearance: awake, no acute distress Head/Eyes: atraumatic, normal conjunctiva/sclera, normal eyelids/periorbital area, normocephalic ENT: moist mucosal membranes Neck: supple Cardiovascular: regular rate rhythm Respiratory: symmetric expansion, no accessory muscle use Abdomen: soft, non-tender, no distention, no guarding Extremities: no edema, no cyanosis Musculoskeletal: normal muscle mass Neuro/PV DESIGN ENGINEER: alert, oriented X 3, normal speech, no motor deficits, no sensory deficits Skin: dry, intact, normal color, normal temperature, no rash Psychiatry: normal affect Diagnosis, Assessment Plan Free Text DxA P Notes Free Text DxA P Notes: Ms. Bello is a 43-year-old woman who presents with complaint of right flank pain: #Acute complicated pyelonephritis with R ureteral stent and adjacent stone 4 mm History of ESBL E. coli infection, kidney stones, ureteral stents Start IV Zosyn based on prior culture ID consult Urology was consulted from the ER plan for endoscopy tomorrow. N.p.o. after midnight. #Acute kidney injury Likely prerenal Continue IV fluids Trend BMP #Hypokalemia P.o. repletion #History of hypothyroidism Resume levothyroxine #History of NIDDM Last A1c 6.5 11/14 Recheck A1c #History of hypertension Hold losartan for FRANCI DVT prophylaxis SCDs pending procedure CODE STATUS: Full code at 0741 [facility] #: [id number] END OF REPORT [facility] 2023-04-08 09:52:00 [facility] ([facility]) EMERGENCY PROVIDER REPORT REPORT#:[id number] REPORT STATUS: Signed DATE:04/08/23 TIME:951 PATIENT: DAVID BELLO HQLONNIE LE #: [id number] ROOM/BED: [place] [address] : 79 AGE: 43 SEX: F PCP PHYS: Jam Tolliver MD SERVICE AUTHOR: Trinh Schumacher * ALL edits or amendments must be made on the electronic/computer document * Trinh Schumacher 04/08/23 0952: HPI- Female Free Text HPI Notes Free Text HPI Notes 43-year-old female with history of hypertension and ureteral stents for ureterolithiasis presents to ED with 2 days of bilateral flank pain, subjective fever, chills, nausea without vomiting. She also reports dysuria with urinary frequency and malodorous urine. Stent was placed last month by urologist at [facility]; ever, her previous urologist is Dr. Rodriguez. Previous urine cultures reviewed. Patient with history of ESBL sensitive to nitrofurantoin. Resistant to Rocephin. Will add p.o. nitrofurantoin General Confirmed Patient Yes Initial Greet Date/Time 04/08/23 0940 Presentation Chief Complaint Dysuria, Flank pain R, Flank pain L )( Sudden in Onset? No Review of Systems ROS Statements All systems rev neg except as marked. Free Text ROS Notes Free Text ROS Notes Per HPI Past Medical History - Adult Stated Complaint ABD PAIN, BURNING DURING URINATION, CHILLS Allergies Coded Allergies: adhesive tape (Mild, HIVES 04/08/23) ertapenem (Mild, Itching 04/08/23) sumatriptan (From IMITREX) (ITCHY 04/08/23) Uncoded Allergies: CONTRAST (Mild, RASH 04/08/23) Home Medications Active Scripts LOSARTAN (COZAAR) 25 MG PO DAILY 1800 LOSARTAN (COZAAR) 25 MG PO DAILY 1800 #30 TAB Ref 1 Prov: 11/04/22 LEVOTHYROXINE (SYNTHROID) 125 MCG PO DAILY 0700 LEVOTHYROXINE (SYNTHROID) 125 MCG PO DAILY 0700 #30 TAB Ref 1 Prov: 11/04/22 Discontinued Scripts NITROFURANTOIN/NITROFURAN MAC (MACROBID) 100 MG PO BID 7 Days #14 CAPS Prov: 12/14/22 DC: 04/08/23 1748 DC prior to admit Reported Medications SEMAGLUTIDE (OZEMPIC PEN (4 MG/3mL)) 1 MG SUBQ Q7D Calculated Suicide Risk (nurs) No risk Past Medical History: Reports: Diabetes mellitus, Hypertension, Kidney disease/stones. Past Surgical History: Reports: Thyroidectomy. Additional Surgical History reviewed. Kidney stone resetion. Additional Family History Mother with kidney stones Alcohol Use Denies EtOH use Drug Use Denies recreational drugs Smoking status for patients 13 years old or older: Never Smoker Physical Exam Vital Signs Vital Signs First Documented: Result Date Time Pulse Ox 100 04/08 938 B/P 136/84 04/08 938 B/P Mean 101 04/08 938 O2 Delivery Room air 04/08 938 Temp 38.5 04/08 938 Pulse 99 04/08 938 Resp 17 04/08 938 Last Documented: Result Date Time Pulse Ox 97 04/08 1304 B/P 118/53 04/08 1304 B/P Mean 74 04/08 1304 O2 Delivery Room air 04/08 1304 Temp 37.4 04/08 1304 Pulse 98 04/08 1304 Resp 16 04/08 1304 Review of Vital Signs Reviewed Free Text PE Notes Free Text PE Notes Gen: Easily uncomfortable but nontoxic-appearing Head: Normocephalic, atraumatic Eyes: Anicteric sclera, No conjunctival injection or exudate Ears: TMs intact bilaterally with good landmarks, no erythema. EAC patent without swelling, erythema, or drainage. No mastoid swelling or TTP Nose: no nasal drainage or sinus TTP Throat: OP clear without exudates, no tonsillar hypertrophy or uvular shift. Moist mucous membranes, handling secretions. Trachea midline. No thyromegaly Neck: FROM, no midline TTP or meningismus Lungs: CTAB no R/R/W, good air movement. No stridor or accessory muscle use. Heart: Tachycardic due to pain and fever no m/g/r. No peripheral edema Abd: S/NT/ND no rebound, guarding, or peritoneal sxs. No palpable masses or pulsetile masses. Negative [place] Sign. No TTP at [place] bilateral flank pain greater on the right Ext: FROM BUE/LE. No swelling or deformity. Calves supple bilaterally. 2+ distal pulses, NVI Neuro: A O x 3, GCS 15, CN I-XII grossly intact without focal deficit. Psych: Normal mood and affect. Interpretation Diagnostics Lab Results Interpretation Results Laboratory Tests 04/08/23 1023: [Embedded Image Not Available] Laboratory Tests: 04/08 04/08 1024 1024 Urines Urine Color (YEL/STRAW discript) STRAW Urine Appearance (CLEAR discript) SL CLOUDY Urine pH (5.0 - 7.0 pH UNITS) 7.0 Ur Specific [place] (1.005 - 1.030 SG) 1.010 Urine Protein [...] (Auto) (20.5 - 51.1 %) 8.0 L [place] % (Auto) (1.7 - 9.3 %) 7.3 Eos % (Auto) (0.0 - 6.0 %) 0.1 Baso % (Auto) (0.0 - 2.0 %) 0.2 Neut # (Auto) (1.8 - 7.6 K/mm3) 8.4 H Lymph # (Auto) (0.6 - 3.2 K/mm3) 0.8 [place] # (Auto) (0.3 - 1.1 K/mm3) 0.7 [...] 1024 Blood Culture - RES BLOOD Recent Impressions: CAT SCAN - CT ABD PELVIS W/O CONT 04/08 1024 Report Impression - Status: SIGNED Entered: 04/08/2023 1224 IMPRESSION: There is a stent in the right renal collecting system with the distal portion in the urinary bladder. No evidence of significant hydronephrosis. A 4 mm stone is present adjacent to the stent near the right ureterovesicular junction. Moderate right perinephric stranding and mild induration involving the proximal portion of the right ureter suggest infection or inflammation. Impression By: [email or web address] - Feliciano Barriga M.D. RADIOLOGY - XR CHEST 1 V 04/08 1107 Report Impression - Status: SIGNED Entered: 04/08/2023 1108 IMPRESSION: No radiographic evidence for acute pulmonary abnormality. Impression By: [email or web address] - Shaq Pena M.D. Lab Imaging Statement Laboratory radiographic studies reviewed and considered in the medical decision-making. Re-Evaluation MDM Free Text MDM Notes Free Text MDM Notes Patient tachycardic and febrile on arrival with 2 [...] Lactic acid and WBC wnl. NOT Sepsis. Re-Evaluation/Progress Re-Evaluation/Progress Text/Dict Note pain better controlled Time of Re-Eval 1235 Re-Eval Status Improved ED Course Medication(s) Ordered Medication(s) Ordered: Anti-Infective Agents Sig/Mona Start time Last Medication Dose [...] PRN 04/08 1730 AC IV 05/08 1729 Consultation Consultation 1 Referral/Consult Name Sarah Lizarraga MD [employer] Called Urology Requested Call Time 1230 Requested Call Date 04/08/23 Call Returned Call not returned Consultation 2 Referral/Consult Name ; Sarah Lizarraga MD [employer] Called Urology Requested Call Time 1337 Requested Call Date 04/08/23 Call Returned Call not returned Consultation 3 Referral/Consult Name ; Brett Rodriguez MD [employer] Called Urology [employer] Discussed with splunk consultant, will take to OR tomorrow Requested Call Time 1716 Requested Call Date 04/08/23 Call Returned Call returned Call Returned Time 171 Call Returned Date 04/08/23 MDM-Complexity Severity/Chronicity Evaluation pyelonephritis, retained ureteral stent- displaced MDM-Independent Interpretation My Other Test Interpretation CT A/P with retained ureteral stent partially in bladder Patient Discharge Departure Vital Signs/Condition Vital Signs First Documented: Result Date Time Pulse Ox 100 [...] of this entry have been reviewed. Clinical Impression Clinical Impression Primary Impression: Pyelonephritis Secondary Impressions: FRANCI (acute kidney injury), Retained ureteral stent Disposition Decision Hospitalize Hosp Physician Name Bj Oneal MD Hosp Physician Hospitalist Request Time 1716 Request Date 04/08/23 )( Accepts Hospitalization Yes )( Reason for Hospitalization displaced ureteral stent with infection and pyelonephritis )( Accepted Time 1716 )( Accepted Date 04/08/23 Call Information will see patient Discharge/Care Plan Counseled Regarding Diagnosis, Lab results, Imaging studies, Need for admission Shaq Coats 04/09/23 1224: Patient Discharge Departure Supervising Physician Note MidLv Saw Pt Alone I have reviewed the PA/CHARGE GANG WEIGHER's note and plan of care. I was available for consultation as needed at all times during the patient's visit in the emergency department. I agree with the clinical impression, plan and disposition. at 1750 at 1224 [facility] #: [id number] END OF REPORT [facility] 2022-12-15 00:35:00 [id number] [facility] [id number] [place] [id number] PATIENT NAME: DAVID BELLO HQIRRO N ADMIT DATE: 12/14/22 ACCOUNT NO: [id number] ROOM NO: AGE: 42 REPORT TYPE: OPERATIVE REPORT SEX: F ADMITTING PHYSICIAN: ATTENDING PHYSICIAN: Brett Rodriguez MD OPERATION DATE: 12/14/2022 ATTENDING SURGEON: Brett Rodriguez MD SEATING AND MOBILITY TECHNOLOGIST: PREOPERATIVE DIAGNOSIS: Right renal calculus. POSTOPERATIVE DIAGNOSIS: Right renal calculus. PROCEDURE PERFORMED: 1. Right ureteroscopy and pyeloscopy. 2. Laser lithotripsy. 3. Retrograde pyelogram with interpretation. 3. Right ureteral stent removal. FINDINGS: 1. A 2 cm UPJ stone. 2. Minimal right hydronephrosis. DRAINS PLACED: None. SPECIMEN OBTAINED: Stone for analysis. ANESTHESIA: General. INDICATIONS FOR PROCEDURE: Mr. Bello is a 42-year-old female who previously presented with an obstructing UPJ stone. She had complicated urinary tract infection. She underwent emergent ureteral stent placement. She has completed her course of IV antibiotics. She now presents for a followup ureteroscopy to address the stone and the stent. I went over the indications, nature of procedure and associated risks and possible complications. DESCRIPTION: The patient was brought to the OR on 12/14/2022. The patient had anesthesia inducted without any complication. She was placed into a dorsal lithotomy position. Genitalia was prepped and draped in the usual standard sterile manner. At this point, I inserted a 22-Czech cystourethroscope into the bladder. I identified the previously placed right ureteral stent. I placed a wire alongside the stent into the renal pelvis. On fluoroscopy imaging, radiopaque stone was seen in the vicinity of the UPJ, approximately 2 cm. I then removed the prior stent out intact. I now advanced a 10-Czech dual lumen ureteral catheter over the wire and then advanced an 02/04 7-Czech 28 cm PATIENT NAME: DAVID BELLO access sheath to the proximal ureter. I then navigated a 7-Czech flexible ureteroscope through the access sheath and [...] By: Brett Rodriguez MD Date Dictated: 12/15/2022 00:35:48 Date Transcribed: 12/15/2022 01:06:53 TELLO/BRY/RITU Receipt ID: [id number] Authenticated and Edited by Brett Rodriguez MD On 12/18/22 11:31:44 AM at 1135 PATIENT NAME: DAVID BELLO [facility] 2022-12-14 09:35:00 [facility] ([facility]) Brief Op Note REPORT#:[id number] REPORT STATUS: Signed DATE:12/14/22 TIME:934 PATIENT: DAVID BELLO UNIT #: [id number] ROOM/BED: : 79 AGE: 42 SEX: F ATTEND: Brett Rodriguez MD ADM AUTHOR: Brett Rodriguez MD * ALL edits or amendments must be made on the electronic/computer document * Op/Inv Proc Note - Brief Pre-procedure diagnosis: right renal stone Post-procedure diagnosis: same as pre procedure dx Procedures performed: right ureteroscopy with laser lithotripsy and stent removal Primary Surgeon: Jennifer Lands Resource Manager(s): none Findings: 2cm upj stone, minimal hydronephrosis Complications: none Estimated blood loss in ml's: none Specimens removed/altered: stones Drain(s): None at 0936 RPT #: [id number] END OF REPORT [facility] 2022-12-07 11:37:00 [id number] [facility] [id number] [place] [id number] PATIENT NAME: DAVID BELLO ADMIT DATE: 12/03/22 ACCOUNT NO: [id number] ROOM NO: [facility] AGE: 42 REPORT TYPE: 360 - QUERY RESPONSE DOCUMENT SEX: F ADMITTING PHYSICIAN: Grace Castano MD ATTENDING PHYSICIAN: Grace Castano MD Provider Query QUERY TEXT: Clarification Infectious Status POA 360MD Query related questions should be directed to: [facility] coding Query Helpline Based on your clinical judgment, please clarify the condition(s) that represent(s) the clinical indicators listed below and if the condition(s) are present on admission (POA). The following definitions are provided based on industry literature and in collaboration with [facility] Clinical Services Group for your reference only: --Localized Infection - An infection that affects only one organ or body part (e.g., UTI, Pneumonia) --Bacteremia - Nonspecific laboratory finding of bacteria in the blood --Sepsis - A presumed or confirmed systemic response to infectious process with >2 clinical indicators such as: Temperature >38.3C or <36.0C, tachycardia, > 20 respiratory rate, WBC >12,000 or < 4,000 or > 10% bands --Severe Sepsis - Sepsis with additional clinical indicators [...] PTT > 60 sec, lactate > 2 mmol/L --Septic Shock - Severe Sepsis with Lactic acid > 4 mmol/L or persistent hypotension The patient's Clinical Indicators include: ED PHYSICIAN RECORD 12/02/2022 (10) Vital Signs: Pulse Ox 99 12/02 1158 ED PHYSICIAN RECORD 12/02/2022 (4) Laboratory Tests: WBC (3.5 - 11.0 K/mm3) 3.8 Urine WBC (0 - 3 #WBC/HPF) 20-30 H Discharge Summary 12/05/2022 (4) Discharge diagnosis: ESBL E. coli UTI s/p right kidney stone with right hydronephrosis and ureteral stent placement on 11/21/2022 Rapid Initial Assessment 12/02/2022 (2) Fever greater than 100.4 F or 38.0 C: Patient states having a fever: PIPERACILLIN SODIUM/TAZOBACTAM 3.375 GM VIAL MAR Options provided: -- Sepsis, Please specify POA status (i.e., Y=Yes, N=No, W=Unable to clinically determine) and causative organism if known. -- Severe Sepsis, Please specify POA status (i.e., Y=Yes, N=No, W=Unable to clinically determine) and causative organism if known. -- Severe Sepsis with septic shock, Please specify POA status (i.e., Y=Yes, N=No, W=Unable to clinically determine) and causative organism if known. -- Localized infection, Please specify the infection and POA status (i.e., Y=Yes, N=No, W=Unable to clinically determine). -- Other - I will add my own diagnosis -- Dismiss - Not applicable / Not valid -- Dismiss - Clinically unable to determine / Unknown -- Assign to another provider QUERY RESPONSE: The patient has localized infection. Query created by: ROSA ISELA CATES on 12/07/2022 6:01 AM at 1137 PATIENT NAME: DAVID BELLO HQIRRO N [facility] 2022-12-05 11:19:00 [facility]) Discharge Summary REPORT#:[id number] REPORT STATUS: Signed DATE:12/05/22 TIME:1119 PATIENT: DAVID BELLO HQIRRO N UNIT #: [id number] ROOM/BED: [place] [address] : 79 AGE: 42 SEX: F ATTEND: Grace Castano MD ADM AUTHOR: Grace Castano MD * ALL edits or amendments must be made on the electronic/computer document * General Information Discharge date: 12/05/22 Discharge diagnosis: ESBL E. coli UTI s/p right kidney stone with right hydronephrosis and ureteral stent placement on 11/21/2022 CKD 2 Hypertension Diabetes mellitus type 2 plan Based on sensitivities from last admission we will use IV Zosyn 3.375 to 8 hours appreciate infectious disease and their final recommendations. Patient had an allergic reaction to ertapenem which we will avoid, follow-up labs, resumed home medications. Advance care plan-patient is a full code Per ID since urine cx remained neg, we can give fosfomycin 3 gm PO x1 dose prior to discharge. ok to dc home DVT prophylaxis-[facility] Hospital course: ESBL E. coli UTI s/p right kidney stone with right hydronephrosis and ureteral stent placement on 11/21/2022 CKD 2 Hypertension Diabetes mellitus type 2 plan Based on sensitivities from last admission we will use IV Zosyn 3.375 to 8 hours appreciate infectious disease and their final recommendations. Patient had an allergic reaction to ertapenem which we will avoid, follow-up labs, resumed home medications. Advance care plan-patient is a full code Per ID since urine cx remained neg, we can give fosfomycin 3 gm PO x1 dose prior to discharge. ok to dc home DVT prophylaxis-[facility] Consultants: infectious disease Pt. condition on discharge: improved, stable Med Rec Med Rec Discharge meds: Stop taking the following medications: MEROPENEM (MERREM) 500 MG VIAL 500 MILLIGRAM INTRAVENOUS EVERY 8 HOURS. Days = 10 Continue taking these medications: SEMAGLUTIDE (OZEMPIC PEN (4 MG/3mL)) 1 MG/0.75 ML (4 MG/3 ML) PEN.INJCTR 1 MILLIGRAM SUBCUTANEOUS EVERY 7 DAYS. LOSARTAN (COZAAR) 25 MG TAB 25 MILLIGRAM ORAL DAILY AT 1800. Qty = 30 LEVOTHYROXINE (SYNTHROID) 125 MCG TAB 125 MICROGRAM ORAL DAILY AT 0700. Qty = 30 HYDROcodone/APAP (HYDROcodone/APAP 7.5/325) 7.5 MG-325 MG TAB 1 TABLET ORAL EVERY FOUR HOURS. Qty = 12 Objective VS/I O Last Documented: Result Date Time O2 Delivery Room air 12/05 830 Temp 96.8 12/05 830 B/P 143/74 12/04 2322 B/P Mean 97 12/04 232 Pulse 61 12/04 232 Resp 13 12/04 232 Pulse Ox 93 12/04 900 24 hour I O ending at 0700: 12/05 0700 12/04 1900 Intake Total 700.00 Output Total Balance 700.00 Intake, IV 400.00 Intake, Oral 300 Number Voids 7 PATIENT WEIGHT: Weight (lb): Weight (oz): Weight (kg): 98.182 General appearance: awake ENT: normal nose Cardiovascular: regular rate rhythm Respiratory: clear to auscultation Extremities: moves all Neuro/PV DESIGN ENGINEER: alert Skin: dry Lymphatic: no lymphadenopathy Discharge Instructions PCP PCP: PCP: Javi Cuadra MD )( Discharge to: Home/Self Care Discharge Instructions Additional Discharge Routines: PCP Follow-Up, [employer] Follow-Up )( Diet: Regular )( Activity: As Tolerated Prescriptions: e-prescribe Discharge management: greater than 30 mins Follow-up Appointments PCP follow up: PCP: Javi Cuadra MD PCP follow up timeframe: In 1-2 weeks Consulting provider 1: Provider 1: Paul Garrett MD Specialty: Infectious Disease at 1123 RPT #: [id number] END OF REPORT [facility] 2022-12-05 10:29:00 [facility] ([facility] Infectious Dis. Progress Note REPORT#:[id number] REPORT STATUS: Signed DATE:12/05/22 TIME:1029 PATIENT: DAVID BELLO HQIRRO N UNIT #: [id number] [address] AGE: 42 SEX: F ATTEND: Grace Castano MD ADM AUTHOR: Paul Garrett MD * ALL edits or amendments must be made on the electronic/computer document * Subjective Chief complaint: UTI HPI: Pt feels better. Pt is on Zosyn. Urine cx neg. Review of Systems Constitutional: Denies: fever. Objective General VS/I O: Vital Signs Date Temp Pulse Resp B/P B/P Mean Pulse Ox FiO2 12/04-12/05 36.0-36.6 61-64 13-14 143-147/74-75 97-99 Last Documented: Result Date Time O2 Delivery Room air 12/05 0831 Temp 36.0 12/05 0831 B/P 143/74 / 2323 B/P Mean 97 12/04 2323 Pulse 61 / 2323 Resp 13 12/04 2323 Pulse Ox 93 / 0901 Vital Signs: Date Time Temp Pulse Resp B/P B/P Pulse O2 O2 Flow FiO2 Mean Ox Delivery Rate 12/05 0831 36.0 Room air 12/04 2340 36.6 / 2323 61 13 143/74 97 /12 2200 64 14 147/75 99 Room air 12/04 1131 36.3 24 hour I O ending at 0700: 12/05 0700 12/04 1900 Intake Total 700.00 Output Total Balance 700.00 Intake, IV 400.00 Intake, Oral 300 Number Voids 7 PATIENT WEIGHT: Weight (lb): Weight (oz): Weight (kg): 98.182 Physical Exam General appearance: alert, awake Head/Eyes: atraumatic, clear cornea, EOMI, normal conjunctiva/sclera, normal eyelids/periorb, normocephalic Neck: full range of motion, non-tender, supple/no meningismus Cardiovascular: regular rate rhythm Respiratory: symmetric expansion, no distress Abdomen: non-tender, soft, no CVA tenderness, no distention, no guarding, no mass/organomegaly, no rebound Extremities: no clubbing, no cyanosis Musculoskeletal: no joint swelling Neuro/PV DESIGN ENGINEER: alert, oriented X 3, CNII-XII intact, normal speech Skin: normal color, normal turgor, no rash Diagnosis, Assessment Plan Free Text A P: Laboratory Tests 12/04/22 0355: [Embedded Image Not Available] 12/04/22 0354: [Embedded Image Not Available] Imaging: CTAP reviewed 11/01 Assessment: 1. Recurrent UTI. 2. Recent ESBL E. coli bacteremia with pyelonephritis. Original end date was 03/16 but treatment was stopped earlier (around 11/29/22) due to allergic reaction to ertapenem, so she got around 7 days of total therapy. 3. CKD stage 2. 4. Right kidney stone with right hydronephrosis s/p ureteral stent placement . Plan: 1. Zosyn (day 4). 2. Can discharge pt on fosfomycin 3 gm PO x1 dose. 3. F/u with PCP and urology. at 1130 RPT #: [id number] END OF REPORT [facility] 2022-12-04 11:13:00 [facility]) Hospitalist Progress Note REPORT#:[id number] REPORT STATUS: Signed DATE:12/04/22 TIME:1113 PATIENT: DAVID BELLO HQIRRO David UNIT #: [id number] ROOM/BED: [place] [address] : 79 AGE: 42 SEX: F ATTEND: Grace Castano MD ADM AUTHOR: Grace Castano MD * ALL edits or amendments must be made on the electronic/computer document * Subjective Chief complaint: Feels better, no fever, no chills Objective General Dietitian nutrition assessment The data set between the solid lines has been imported from the dietitian's assessment. BMI Calculated: 36.0 Nutrition related diagnosis: Nutrition diagnosis details: Nutrition problem: Nutrition etiology: Nutrition signs and symptoms: Nutrition prescription: Dietitian name: Assessment completed: Physical Exam ENT: normal nose Cardiovascular: normal heart sounds Respiratory: aerating well Genitourinary: urine Extremities: moves all Neuro/PV DESIGN ENGINEER: alert Lymphatics: no lymphadenopathy Results Findings/Data: Laboratory Tests 12/04 12/04 12/03 12/03 12/03 0722 [...] % (Auto) (20.5 - 51.1 %) 46.9 [place] % (Auto) (1.7 - 9.3 %) 5.3 Eos % (Auto) (0.0 - 6.0 %) 1.7 Baso % (Auto) (0.0 - 2.0 %) 1.5 Neut # (Auto) (1.8 - 7.6 K/mm3) 2.4 Lymph # (Auto) (0.6 - 3.2 K/mm3) 2.6 [place] # (Auto) (0.3 - 1.1 K/mm3) 0.3 Eos # (Auto) (0.0 - 0.4 K/mm3) 0.1 Baso # (Auto) (0.0 - 0.1 K/mm3) 0.1 Abs Immat Gran (auto) (0.00 - 0.03 x10 3/uL) 0.01 Add Manual Diff (CRITERIA DIFF/SCN) NO Immature Gran % (0.0 - 5.0 %) 0.2 Nucleated RBC % (0.0 - 1.0 /100WBC%) 0.0 Diagnosis, Assessment Plan Free Text DxA P Notes Free text DxA P notes: ESBL E. coli UTI s/p right kidney stone with right hydronephrosis and ureteral stent placement on 11/21/2022 CKD 2 Hypertension Diabetes mellitus type 2 plan Based on sensitivities from last admission we will use IV Zosyn 3.375 to 8 hours appreciate infectious disease and their final recommendations. Patient had an allergic reaction to ertapenem which we will avoid, follow-up labs, resumed home medications. Advance care plan-patient is a full code Per ID If urine cx remains neg, can give fosfomycin 3 gm PO x1 dose for discharge. Likely in am DVT prophylaxis-Lovenox at 1113 RPT #: [id number] END OF REPORT [facility] 2022-12-04 09:25:00 [facility] ([facility]) Infectious Dis. Progress Note REPORT#:[id number] REPORT STATUS: Signed DATE:12/04/22 TIME:924 PATIENT: DAVID BELLO HQIRRO N UNIT #: [id number] ROOM/BED: [place] [address] : 79 AGE: 42 SEX: F ATTEND: Grace Castano MD ADM AUTHOR: Paul Garrett MD * ALL edits or amendments must be made on the electronic/computer document * Subjective Chief complaint: UTI HPI: Dysuria resolving. Pt is on Zosyn. Urine cx pending. Review of Systems Constitutional: Denies: fever. Objective General VS/I O: Vital Signs Date Temp Pulse Resp B/P B/P Mean Pulse Ox FiO2 12/03-12/04 36.3-36.7 60-78 12-24 105-158/56-89 74-106 93-99 Last Documented: Result Date Time Pulse Ox 94 12/04 0700 B/P 105/72 / 0700 B/P Mean 83 / 0700 O2 Delivery Room air 12/04 0700 Pulse 67 12/04 0700 Resp 17 12/04 0700 Temp 36.3 12/03 2357 Vital Signs: Date Time Temp Pulse Resp B/P B/P Pulse O2 O2 Flow FiO2 Mean Ox Delivery Rate 12/04 0700 67 17 105/72 83 94 Room air 09 0600 64 15 127/80 95 94 Room air 12/04 0500 61 15 144/86 105 94 Room air 12/04 0400 72 12 123/60 81 97 Room air 12/04 0300 64 15 144/84 104 94 Room air 12/04 0200 60 16 124/79 94 95 Room air 12/04 0100 62 20 137/79 98 94 Room air 12/04 0000 62 17 144/69 94 97 Room air 12/03 2357 36.3 12/03 2300 64 24 136/73 94 97 Room air 12/03 2024 36.7 12/03 2000 67 17 138/83 101 97 Room air 12/03 1800 75 18 158/80 106 98 12/03 1700 66 18 142/65 90 98 12/03 1427 78 16 110/56 74 98 12/03 1300 72 20 139/89 105 94 12/03 1200 72 20 99 11 1156 36.7 12/03 1100 64 16 144/85 104 93 12/03 1000 78 20 150/81 104 96 24 hour I O ending at 0700: 12/04 0700 12/03 1900 Intake Total 700.00 600 Output Total Balance 700.00 600 Intake, IV 200.00 Intake, Oral 500 600 Number Voids 2 3 PATIENT WEIGHT: Weight (lb): Weight (oz): Weight (kg): 98.182 Physical Exam General appearance: alert, awake Head/Eyes: atraumatic, clear cornea, EOMI, normal conjunctiva/sclera, normal eyelids/periorb, normocephalic Neck: full range of motion, non-tender, supple/no meningismus Cardiovascular: regular rate rhythm Respiratory: symmetric expansion, no distress Abdomen: non-tender, soft, no CVA tenderness, no distention, no guarding, no mass/organomegaly, no rebound Extremities: no clubbing, no cyanosis Neuro/PV DESIGN ENGINEER: alert, oriented X 3, CNII-XII intact, normal speech Skin: normal color, normal turgor, no rash Diagnosis, Assessment Plan Free Text A P: Laboratory Tests 12/04/22 0355: [Embedded Image Not Available] 12/04/22 0354: [Embedded Image Not Available] Imaging: CTAP reviewed 11/01 Assessment: 1. Recurrent UTI. 2. Recent ESBL E. coli bacteremia with pyelonephritis. Original end date was 03/16 but treatment was stopped earlier (around 11/29/22) due to allergic reaction to ertapenem, so she got around 7 days of total therapy. 3. CKD stage 2. 4. Right kidney stone with right hydronephrosis s/p ureteral stent placement . Plan: 1. Agree with Zosyn (day 3) as pt has developed an allergy to ertapenem and last bacterium was resistant to Bactrim and ciprofloxacin. 2. If urine cx remains neg tomorrow, can discharge pt on fosfomycin 3 gm PO x1 dose. 3. Monitor CBC. 4. Monitor kidney function. at 1201 RPT #: [id number] END OF REPORT [facility] 2022-12-03 15:16:00 [facility] ([facility]) Hospitalist Progress Note REPORT#:[id number] REPORT STATUS: Signed DATE:12/03/22 TIME:1516 PATIENT: DAVID BELLO HQIRRO N UNIT #: [id number] ROOM/BED: [place] [address] : 79 AGE: 42 SEX: F ATTEND: Grace Castano MD ADM AUTHOR: Grace Castano MD * ALL edits or amendments must be made on the electronic/computer document * Subjective Chief complaint: Feels better, no fever, no chills Objective General VS/I O: Vital Signs: Date Time Temp Pulse Resp B/P B/P Pulse O2 O2 Flow FiO2 Mean Ox Delivery Rate 12/03 1156 98.1 12/03 0745 97.7 12/03 0354 97.9 12/02 2353 98.2 12/02 202 97.4 80 18 146/90 108 100 12/02 [...] Weight (oz): Weight (kg): 98.182 Dietitian nutrition assessment The data set between the solid lines has been imported from the dietitian's assessment. BMI Calculated: 36.0 Nutrition related diagnosis: Nutrition diagnosis details: Nutrition problem: Nutrition etiology: Nutrition signs and symptoms: Nutrition prescription: Dietitian name: Assessment completed: Physical Exam General appearance: awake ENT: normal nose Cardiovascular: normal heart sounds Respiratory: aerating well Genitourinary: urine Extremities: moves all Neuro/PV DESIGN ENGINEER: alert Lymphatics: no lymphadenopathy Results Findings/Data: Laboratory Tests 12/03 12/03 12/03 12/02 1154 0743 0573 1955 Chemistry Sodium (134 - 147 mmol/L) 137 [...] - 2.2 RATIO) 0.6 L Laboratory Tests 12/04 523 Hematology WBC (3.5 - 11.0 K/mm3) 6.0 [...] % (Auto) (20.5 - 51.1 %) 24.0 [place] % (Auto) (1.7 - 9.3 %) 5.3 Eos % (Auto) (0.0 - 6.0 %) 0.2 Baso % (Auto) (0.0 - 2.0 %) 0.5 Neut # (Auto) (1.8 - 7.6 K/mm3) 4.2 Lymph # (Auto) (0.6 - 3.2 K/mm3) 1.4 [place] # (Auto) (0.3 - 1.1 K/mm3) 0.3 [...] Diagnosis, Assessment Plan Free Text DxA P Notes Free text DxA P notes: ESBL E. coli UTI s/p right kidney stone with right hydronephrosis and ureteral stent placement on 11/21/2022 CKD 2 Hypertension Diabetes mellitus type 2 plan Based on sensitivities from last admission we will use IV Zosyn 3.375 to 8 hours appreciate infectious disease and their final recommendations. Patient had an allergic reaction to ertapenem which we will avoid, follow-up labs, resumed home medications. Advance care plan-patient is a full code DVT prophylaxis-Lovenox at 1518 RPT #: [id number] END OF REPORT [facility] 2022-12-03 09:41:00 [facility] ([facility]) Infect Disease Consult Note REPORT#:[id number] REPORT STATUS: Signed DATE:12/03/22 TIME:940 PATIENT: DAVID BELLO HQIRRO N UNIT #: [id number] ROOM/BED: [place] [address] : 79 AGE: 42 SEX: F ATTEND: Grace Castano MD ADM AUTHOR: Paul Garrett MD * ALL edits or amendments must be made on the electronic/computer document * History of Present Illness Chief complaint: UTI HPI: 41-year-old female with h/o CKD stage II, hypertension, [...] 1 day. No fever. History - Adult longitudinal Past medical history: Reports: Diabetes mellitus, Hypertension, Kidney disease/stones. Past surgical history: Reports: Thyroidectomy. Additional surgical history: reviewed. Kidney stone resetion. Additional family history: Mother with kidney stones Alcohol use: Denies EtOH use Drug use: Denies recreational drugs Smoking status for patients 13 years old or older: Unknown,if ever smoked Allergies: Coded Allergies: ertapenem (Mild, Itching 12/02/22) sumatriptan (From IMITREX) (ITCHY 08/30/21) Review of Systems Constitutional: Denies: chills. Skin: Reports: other (She had hives). Allergy/Immun: Reports hives Eyes: Denies discharge ENT: Denies: sore throat. Respiratory: Denies: productive cough (sputum), SOB. Cardiovascular: Denies: chest pain. GI: Denies: abdominal pain. : Reports: dysuria. Denies: flank pain. Musculoskeletal: Denies: joint swelling. Neuro: Denies: headache. Objective General VS/I O: Vital Signs Date Temp Pulse Resp B/P B/P Mean Pulse Ox FiO2 12/02-12/03 36.3-36.8 66-80 17-28 142-158/65-93 93-114 96-100 Last Documented: Result Date Time Temp 36.7 12/03 1156 Pulse Ox 100 12/02 2021 B/P 146/90 12/02 2021 B/P Mean 108 12/02 2021 Pulse 80 12/02 2021 Resp 18 12/02 2021 O2 Delivery Room air 12/02 1158 Vital Signs: Date Time Temp Pulse Resp B/P B/P Pulse O2 O2 Flow FiO2 Mean Ox Delivery Rate 12/03 1156 36.7 09/11 0745 36.5 12/03 0354 36.6 12/02 2353 36.8 12/02 2021 [...] (lb): Weight (oz): Weight (kg): 98.182 Physical Exam General appearance: alert, awake, oriented, no acute distress, mental status normal, no respiratory distress Head/Eyes: atraumatic, clear cornea, EOMI, normal conjunctiva/sclera, normal eyelids/periorb, normocephalic ENT: moist mucosal membranes, normal nose Neck: full range of motion, non-tender, supple/no meningismus Cardiovascular: regular rate rhythm Respiratory: symmetric expansion, no distress Abdomen: non-tender, normal bowel sounds, soft, no CVA tenderness, no distention , no guarding, no mass/organomegaly, no rebound Genitourinary: no flank pain Extremities: no clubbing, no cyanosis Musculoskeletal: no joint swelling Neuro/PV DESIGN ENGINEER: alert, oriented X 3, CNII-XII intact, normal speech Skin: normal color, normal turgor, no rash Psychiatry: normal affect, normal judgment/insight, normal mood Diagnosis, Assessment Plan Free Text DxA P Notes Free text DxA P notes: Laboratory Tests 12/03/22 0524: [Embedded Image Not Available] Imaging: CTAP reviewed 11/01 Assessment: 1. Recurrent UTI. 2. Recent ESBL E. coli bacteremia with pyelonephritis. Original end date was 03/16 but treatment was stopped earlier (around 11/29/22) due to allergic reaction to ertapenem, so she got around 7 days of total therapy. 3. CKD stage 2. 4. Right kidney stone with right hydronephrosis s/p ureteral stent placement . Plan: 1. Agree with Zosyn for now as pt has developed an allergy to ertapenem and last bacterium was resistant to Bactrim and ciprofloxacin. 2. Will deescalate based on new cultures. Hopefully this time the bacterium is not resistant and we can discharge on a PO regimen. 3. Monitor CBC. 4. Monitor kidney function. 5. Case discussed with hospitalist. Thank you for this consult. at 1505 RPT #: [id number] END OF REPORT [facility] 2022-12-02 13:41:00 [facility] ([facility]) History Physical - Adult REPORT#:[id number] REPORT STATUS: Signed DATE:12/02/22 TIME:1341 PATIENT: DAVID BELLO UNIT #: [id number] ROOM/BED: [place] [address] : 79 AGE: 42 SEX: F ATTEND: Grace Castano MD ADM AUTHOR: Grace Castano MD * ALL edits or amendments must be made on the electronic/computer document * See Addendum History of Present Illness HPI Chief complaint: burning urine HPI: 41-year-old female with past medical history of chronic kidney disease stage II, hypertension, diabetes, pericardial effusion s/p [...] bilateral upper and lower extremity, itching. She denies facial swelling, difficulty breathing, lip swelling, tongue swelling, wheezing, abdominal pain, nausea or vomiting. Patient complaint of burning with urination that started yesterday. She denies hematuria, she admits to increased urinary frequency and urgency, she denies flank pain, fever, chills. Patient denies any other symptoms. History Past medical history: Reports: Diabetes mellitus, Hypertension, Kidney disease/stones. Past surgical history: Reports: Thyroidectomy. Additional surgical history: reviewed. Kidney stone resetion. Additional family history: Mother with kidney stones Alcohol use: Denies EtOH use Drug use: Denies recreational drugs Smoking status for patients 13 years old or older: Unknown,if ever smoked Medication/Allergy-Vaccine Hx Allergies: Coded Allergies: sumatriptan (From IMITREX) (ITCHY 08/30/21) Review of Systems All systems rev neg: except as marked (burning urine) Physical Exam VS/I O Vital Signs: Date Time Temp Pulse Resp B/P B/P Pulse O2 O2 Flow FiO2 Mean Ox Delivery Rate 12/02 1158 97.5 78 19 136/69 91 99 Room air PATIENT WEIGHT: Weight (lb): Weight (oz): Weight (kg): 98.182 General appearance: awake ENT: normal nose Neck: supple Cardiovascular: regular rate rhythm Respiratory: clear to auscultation Abdomen/GI: soft Extremities: moves all Musculoskeletal: full range of motion Neuro/PV DESIGN ENGINEER: alert Skin: dry Lymphatic: no lymphadenopathy Results Findings/Data: Laboratory Tests: 12/02 12/02 1222 1215 Chemistry Sodium [...] - 7.0 pH UNITS) 6.5 Ur Specific [place] (1.005 - 1.030 SG) 1.015 Urine Protein [...] (0 - 6 mi-IU/ML) < 1 Radiology data: ESBL E. coli UTI s/p right kidney stone with right hydronephrosis and ureteral stent placement on 11/21/2022 CKD 2 Hypertension Diabetes mellitus type 2 plan Based on sensitivities from last admission we will use IV Zosyn 3.375 to 8 hours. Patient had an allergic reaction to ertapenem which we will avoid. ID consult, follow-up labs, resume home medications. Advance care plan-patient is a full code DVT prophylaxis-Lovenox at 1345 Addendum 1: 12/06/22 1300 by Grace Castano MD 12/02/22. @ 1341hrs patient does not meet SIRS criteria, severe sepsis or septic shock at 1301 RPT #: [id number] END OF REPORT [facility] 2022-12-02 12:14:00 [facility] ([facility]) EMERGENCY PROVIDER REPORT REPORT#:[id number] REPORT STATUS: Signed DATE:12/02/22 TIME:1214 PATIENT: DAVID BELLO HQMOJGANO David UNIT #: [id number] ROOM/BED: [place] [address] : 79 AGE: 42 SEX: F PCP PHYS: Javi Cuadra MD SERVICE AUTHOR: Alvarez Youngblood * ALL edits or amendments must be made on the electronic/computer document * Alvarez Youngblood 12/02/22 1214: HPI-Allergic Reaction Free Text HPI Notes Free Text HPI Notes 41-year-old female with past medical history of chronic kidney disease stage II, hypertension, diabetes, pericardial effusion s/p pericardiocentesis, kidney stone s/p ureteral stent, discharged in November PICC line with IV Ertenem and Merrem presenting with chief complaint of generalized itching x5 days on burning urination x1 day. She related generalized hives started after initiation of antibiotic. She states she stopped antibiotic because of generalized itching. She admits to hives on bilateral upper and lower extremity, itching. She denies facial swelling, difficulty breathing, lip swelling, tongue swelling, wheezing, abdominal pain, nausea or vomiting. Patient complaint of burning with urination that started yesterday. She denies hematuria, she admits to increased urinary frequency and urgency, she denies flank pain, fever, chills. Patient denies any other symptoms. General Confirmed Patient Yes Initial Greet Date/Time 12/02/22 1152 Presentation Chief Complaint Allergic reaction Hx Obtained From Patient Onset Occurred Days ago Location Upper extremity R, Upper extremity L, Lower extremity R, Lower extremity L Associated with Reports: Itching generalized, Welts/hives. Denies: Nausea, Palpitations, Rash/ redness all over, Swelling, eyes, Swelling, face, Swelling, feet, Swelling, hands, Swelling, lips, Swelling, neck, Swelling, throat, Swelling, tongue, Vomiting, Wheezing. Associated Other Pt denies other symptoms Exacerbated by Nothing Relieved by Nothing Review of Systems ROS Statements All systems rev neg except as marked. Focused Review of Systems Constitutional Denies: Chills, Fever. Eyes Denies: Swelling bilat. Ears/Nose/Throat Denies: Throat swelling, Tongue swelling, Voice change. Respiratory Denies: Shortness of breath, Wheezing. GI Denies: Nausea, Vomiting. Skin Reports: Rash. Allergy/Immun Reports: Hives. Past Medical History - Adult Stated Complaint HIVES KIDNEYSTONE PAIN Calculated Suicide Risk (nurs) No risk Past Medical History: Reports: Diabetes mellitus, Hypertension, Kidney disease/stones. Past Surgical History: Reports: Thyroidectomy. Additional Surgical History reviewed. Kidney stone resetion. Additional Family History Mother with kidney stones Alcohol Use Denies EtOH use Drug Use Denies recreational drugs Smoking status for patients 13 years old or older: Unknown,if ever smoked Physical Exam Vital Signs Vital Signs First Documented: Result Date Time Pulse Ox 99 12/02 1158 B/P 136/69 / 1158 B/P Mean 91 / 1158 O2 Delivery Room air 12/02 1158 Temp 36.4 12/02 1158 Pulse 78 / 1158 Resp 19 12/02 1158 Last Documented: Result Date Time Pulse Ox 99 12/02 1158 B/P 136/69 12/02 1158 B/P Mean 91 12/02 1158 O2 Delivery Room air 12/02 1158 Temp 36.4 12/02 1158 Pulse 78 / 1158 Resp 19 12/02 1158 Review of Vital Signs Reviewed Focused PE General/Const General/Const Awake, Alert, No acute distress MS Head Head Normocephalic Ears/Nose/Throat Ears/Nose/Throat Airway patent, Pharynx NL, No facial swelling Resp/Chest Respiratory/Chest Breath sounds NL, Breath sounds = bilat, No respiratory distress Cardiovascular Cardiovascular Heart rate NL, Regular rhythm, Heart sounds NL Skin Text/Dict Notes Raised erythema papule noted on bilateral upper and lower extremity Neurologic Neurologic Oriented X3 Interpretation Diagnostics Lab Results Interpretation Results Laboratory Tests 12/02/22 1222: [Embedded Image Not Available] Laboratory Tests: 12/02 12/02 1222 1215 Chemistry Sodium [...] - 7.0 pH UNITS) 6.5 Ur Specific Hurley (1.005 - 1.030 SG) 1.015 Urine Protein [...] Culture - COMP URINE Point of Care Testing Pulse Oximetry Pulse Ox % 99 On: Room air Interpretation Interpreted by me Re-Evaluation MDM Free Text MDM Notes Free Text MDM Notes 42-year-old female presenting with chief complaint of generalized itching and dysuria. Suspicion of generalized itching is due to drug allergies. Patient stopped antibiotics. Patient given oral prednisone, Benadryl and famotidine for generalized itching and hives. Patient complaint of burning with urination. Will admit patient for complicated UTI because patient failed outpatient treatment. Discussed plan of care with patient, all questions and concerns were addressed. Additional Text 42-year-old female presents with chief complaint of hives. Low suspicion for anaphylaxis because no wheezing, abdominal pain, nausea or vomiting, difficulty breathing. Low suspicion for angioedema because no facial swelling or lip swelling. )( Re-Evaluation/Progress #1 )( Re-Eval Status stable ED Course Medication(s) Ordered Medication(s) Ordered: Antihistamine Drugs Sig/Mona Start time Last Medication Dose Route Stop Time Status Admin Diphenhydramine HCl 25 MG X1ED STA 12/024 DC 12/02 PO 12/02 1214 1219 Gastrointestinal Drugs Sig/Mona Start time Last Medication Dose Route Stop Time Status Admin Famotidine 20 MG X1ED STA 12/02 1214 DC 12/02 PO 12/02 121 1219 Hormones And Synthetic Substit Sig/Mona Start time Last Medication Dose Route Stop Time Status Admin Prednisone 50 MG X1ED STA 12/02 1213 DC 12/02 PO 12/025 1219 Differential Diagnosis Differential Diagnosis Allergic reaction, Anaphylaxis, Angioedema, Angioneurotic edema, Bronchospasm, Cellulitis, Contact dermatitis, Drug reaction, Erythema multiforme, Gastroenteritis, Hemolytic uremic syndrome, Idiopathic thromb purpura, Insect bite, Latex allergy, MRSA, Rhinitis, Seasonal allergy, Status asthmaticus, Patel-Ace syndrome, Urticaria, Viral exanthem, Viral syndrome Patient Discharge Departure Vital Signs/Condition Vital Signs First Documented: Result Date Time Pulse Ox 99 / 1158 B/P 136/69 09/10 1158 B/P Mean 91 09/10 1158 O2 Delivery Room air / 1158 Temp 36.4 / 1158 Pulse 78 / 1158 Resp 19 12/02 1158 Last Documented: Result Date Time Pulse Ox 99 /10 1158 B/P 136/69 /10 1158 B/P Mean 91 /10 1158 O2 Delivery Room air / 1158 Temp 36.4 10 1158 Pulse 78 /10 1158 Resp 19 12/02 1158 All vital signs available at the time of this entry have been reviewed. Condition Guarded Clinical Impression Clinical Impression Primary Impression: Complicated UTI (urinary tract infection) Secondary Impressions: Allergic reaction Disposition Decision Hospitalize Hosp Physician Name Grace Castano MD Hosp Physician Hospitalist Request Time 1247 Request Date 12/02/22 )( Accepts Hospitalization Yes )( Reason for Hospitalization complicated uti )( Accepted Time 1247 )( Accepted Date 12/02/22 Call Information will see patient Discharge/Care Plan Counseled Regarding Diagnosis, Lab results, Need for admission Admit Note I have spoken with the patient and/or caregivers. I have explained the patient's condition, diagnoses and treatment plan based on the information available to me at this time. I have answered the patient's and/or caregiver's questions and addressed any concerns. The patient and/or caregivers have as good an understanding of the patient's diagnosis, condition and treatment plan as can be expected at this point. The patient has been stabilized within the capability of the emergency department. The patient will be transported for further care and management or will be moved to an observation or inpatient service. I have communicated with the staff or medical practitioner taking over this patient's care. Allen Yeboah 12/06/22 0932: Past Medical History - Adult Allergies Coded Allergies: ertapenem (Mild, Itching 12/02/22) sumatriptan (From IMITREX) (ITCHY 08/30/21) Home Medications Active Scripts LOSARTAN (COZAAR) 25 MG PO DAILY 1800 LOSARTAN (COZAAR) 25 MG PO DAILY 1800 #30 TAB Ref 1 Prov: 11/04/22 LEVOTHYROXINE (SYNTHROID) 125 MCG PO DAILY 0700 LEVOTHYROXINE (SYNTHROID) 125 MCG PO DAILY 0700 #30 TAB Ref 1 Prov: 11/04/22 HYDROcodone/APAP (HYDROcodone/APAP 7.5/325) 1 TAB PO Q4H HYDROcodone/APAP (HYDROcodone/APAP 7.5/325) 1 TAB PO Q4H #12 TABS Prov: 11/07/22 Discontinued Scripts MEROPENEM (MERREM) 500 MG IV Q8HR Reported Medications SEMAGLUTIDE (OZEMPIC PEN (4 MG/3mL)) 1 MG SUBQ Q7D Patient Discharge Departure Quality Measures BP F/U for HTN Referred for BP f/u < 4wk, F/u with PCP/other doc 12-Lead ECG for CP Performed documented Supervising Physician Note MidLv/Doc Saw Pt 1 I have personally seen the patient and I evaluated the patient along with involvement of the PA/CHARGE GANG WEIGHER. I agree with the PA/[employer] manager findings and plan. I have performed all aspects of MDM as documented including: evaluation of the patient/ patient's condition(s), review and analysis of available data, and determination of risk of patient management decisions. at 1658 at 0934 RPT #: [id number] END OF REPORT [facility] 2022-11-24 14:09:00 [facility] ([facility]) Hospitalist Discharge Summary REPORT#:[id number] REPORT STATUS: Signed DATE:11/24/22 TIME:1409 PATIENT: DAVID BELLO HQIRRO N UNIT #: [id number] ROOM/BED: [place] [address] : 79 AGE: 42 SEX: F ATTEND: Glen Nava MD ADM AUTHOR: Grace Castano MD * ALL edits or amendments must be made on the electronic/computer document * General Information Discharge date: 11/24/22 Discharge diagnosis: Sepsis with ESBL E. coli bacteremia. Acute pyelonephritis due to ESBL E. coli Right kidney stone with right hydronephrosis s/p ureteral stent placement . Appreciate help from urology and ID Pain control Acute kidney injury on CKD stage II IV hydration Renal parameters monitored Nephrology consult appreciated Hypertension Continue home medications Diabetes 2 Insulin sliding scale Hypomagnesemia - repleted GI/DVT prophylaxis Advanced directive full code Picc today, no oral option, patient to receive 10 days of IV Merrem / Ertepenem ( on dc) starting from ureteral stent placement, home with home health, repeat blood cultures negative for 24 hours, case management for arrangement ok to dc when above arrnaged Hospital course: Sepsis with ESBL E. coli bacteremia. Acute pyelonephritis due to ESBL E. coli Right kidney stone with right hydronephrosis s/p ureteral stent placement . Appreciate help from urology and ID Pain control Acute kidney injury on CKD stage II IV hydration Renal parameters monitored Nephrology consult appreciated Hypertension Continue home medications Diabetes 2 Insulin sliding scale Hypomagnesemia - repleted GI/DVT prophylaxis Advanced directive full code Picc today, no oral option, patient to receive 10 days of IV Merrem / Ertepenem ( on dc) starting from ureteral stent placement, home with home health, repeat blood cultures negative for 24 hours, case management for arrangement ok to dc when above arrnaged Consultants: infectious disease Pt. condition on discharge: improved, stable Free Text DxA P Notes Free text DxA P notes: Sepsis with ESBL E. coli bacteremia. Acute pyelonephritis due to ESBL E. coli Right kidney stone with right hydronephrosis s/p ureteral stent placement . Appreciate help from urology and ID Pain control Acute kidney injury on CKD stage II IV hydration Renal parameters monitored Nephrology consult appreciated Hypertension Continue home medications and titrate as needed Diabetes 2 Insulin sliding scale Hypomagnesemia - repleted GI/DVT prophylaxis Advanced directive full code Midline today, no oral option, patient received 10 days of IV Merrem / Ertepenem ( on dc) starting from ureteral stent placement, likely home with home health, repeat blood cultures negative for 24 hours, case management for arrangement Med Rec Med Rec Discharge meds: Continue taking these medications: SEMAGLUTIDE (OZEMPIC PEN (4 MG/3mL)) 1 MG/0.75 ML [...] = 12 Start taking the following new medications: MEROPENEM (MERREM) 500 MG VIAL 500 MILLIGRAM INTRAVENOUS EVERY 8 HOURS. Days = 10 No Refills Objective General appearance: awake ENT: normal nose Respiratory: aerating well Rectal: deferred Extremities: moves all Neuro/PV DESIGN ENGINEER: alert, oriented X 3 Skin: dry Lymphatics: no lymphadenopathy Free Text Obj Notes Free Text Obj Notes: Physical Exam General appearance: alert, awake, oriented HEENT : normocephalic ,Atraumatic Eyes: Eyes normal inspection. ENT: Dry mucous membranes present. Neck: Normal inspection. Neck supple. CVS: Normal heart rate and rhythm. Heart sounds normal. Respiratory: No respiratory distress. Breath sounds normal. Abdomen: Soft and nontender. Genitourinary: no bladder distention Back: Normal inspection. Skin: Skin warm. Normal skin color. No rash. Extremities: No lower extremity edema. Neuro: Oriented X 3. No motor deficit No generalized lymph adenopathy Psych normal affect Discharge Instructions PCP PCP follow-up: PCP: Javi Cuadra MD Discharge to: Home/Self Care Additional Discharge Routines: PCP Follow-Up Diet: Regular Activity: As Tolerated Prescriptions: on chart Discharge management: greater than 30 mins at 1414 RPT #: [id number] END OF REPORT [facility] 2022-11-24 14:06:00 [facility] ([facility]) Nephrology Progress Note REPORT#:[id number] REPORT STATUS: Signed DATE:11/24/22 TIME:1406 PATIENT: DAVID BELLO UNIT #: [id number] ROOM/BED: [facility] : 79 AGE: 42 SEX: F ATTEND: Glen Nava MD ADM AUTHOR: Arash Rivera MD * ALL edits or amendments must be made on the electronic/computer document * Subjective Chief complaint: FRANCI HPI: 42 yo female with history of HTN, DM, previou episodes of UTI, hypothyrodism, kidney stones, pericardial effusion, s/p pericardiocenthesis, presented to ER c/ o fever and nausea. pateint was recently treated for complicated UTI. Readmitted with fever, weakness and vomiting. Patient fount to have worsening FRANCI and UTI. Patient has hitory of kidney stone, s/p resection; and CKD stage 2 to 3. Renal is consulted for evaluation of renal failure. Comments: Denies sob. Review of Systems Free Text ROS Notes Free Text ROS Notes: 10 points ROS performed and documented in subjective, otherwise negative. Objective General VS/I O: Vital Signs: Date Time Temp Pulse Resp B/P B/P Pulse O2 O2 Flow FiO2 Mean Ox Delivery Rate 11/24 1349 36.7 65 14 128/77 93.9 97 Room air 11/24 0359 36.5 66 14 143/87 105.9 96 Room air 11/23 2342 36.5 59 14 161/87 111.9 95 Room air 11/23 2011 36.5 67 14 143/85 104.3 99 Room air 11/23 1551 36.6 54 14 138/85 102.6 96 Room air 24 hour I O ending at 0700: 11/24 0700 11/23 1900 Intake Total 340.00 420 Output Total Balance 340.00 420 Intake, IV 40.00 Intake, Oral 300 420 Number Voids 3 2 Medications Active Meds + DC'd Last 24 Hrs Meropenem (MERREM) 500 MG Q8HR IV Sterile Water (WATER FOR INJECTION) 10 ML Docusate Sodium (COLACE) 100 MG BID PO Pregabalin [...] 4 MG Q4H PRN IV (DC) Physical Exam General appearance: awake Head/eyes: normocephalic ENT: normal nose Neck: supple/no meningismus, no JVD C-Spine clearance: no midline tenderness Cardiovascular: no murmur Respiratory: no distress Abdomen: non-tender, normal bowel sounds, soft Genitourinary: no bladder distention Extremities: no edema Musculoskeletal: no tendereness Neuro/PV DESIGN ENGINEER: alert, oriented X 3 Results Radiology data: Recent Impressions: RADIOLOGY - XR CHEST 1 V 11/24 1310 Report Impression - Status: SIGNED Entered: 11/24/2022 1326 IMPRESSION: 1. Left arm PICC is appropriately positioned. Impression By: Neetu Longoria M.D. Diagnosis, Assessment Plan Free Text A P: 1. FRANCI on CKD stage 2 to 3. Etiology likely ATN Last creat 2.0 from 2.2 2. Hyponatremia likely hypovolemic hyponatremia. 3. UTI. 4. Right kidney stone / mild to mderate hydronephrosis. 5. HTN. 6. DM. 7. Hypovolemia. Recommendations: 11/24: Oral hydration. Avoid NSAID. 11/23:Continue iv fluids. : Continue with IV fluids. Avoid NSAIDs. Monitor BMP, electrolyte, supplement as needed. 11/21: Continue IV fluids. Avoid NSAID. 11/20: NS 100 ml/hour. Avoid NSAID Urine studies. Drug dose adjustment to GFR. Thank you for the consultation, any question please call [phone]. at 1703 RPT #: [id number] END OF REPORT [facility] 2022-11-24 10:40:00 [facility]) Hospitalist Progress Note REPORT#:[id number] REPORT STATUS: Signed DATE:11/24/22 TIME:1040 PATIENT: DAVID BELLO UNIT #: [id number] ROOM/BED: [place] [address] : 79 AGE: 42 SEX: F ATTEND: Glen Nava MD ADM AUTHOR: Grace Castano MD * ALL edits or amendments must be made on the electronic/computer document * Subjective Chief complaint: Stable, no new complaints HPI: 42-year-old female with history of stage II CKD, hypertension, diabetes, pericardial effusion status post pericardiocentesis and large right 1.8 mm stone in the [...] return to the ED because of persistent pain. She reports intractable right flank pain radiating to the right mid abdomen associated with nausea and nonbloody nonbilious emesis. She reports objective fever, chills and extreme diaphoresis. Objective General Dietitian nutrition assessment The data set between the solid lines has been imported from the dietitian's assessment. BMI Calculated: 36.7 Nutrition related diagnosis: Nutrition diagnosis details: Nutrition problem: Nutrition etiology: Nutrition signs and symptoms: Nutrition prescription: Dietitian name: Assessment completed: Physical Exam General appearance: awake ENT: normal nose Respiratory: aerating well Rectal: deferred Extremities: moves all Neuro/PV DESIGN ENGINEER: alert, oriented X 3 Skin: dry Lymphatics: no lymphadenopathy Free Text Obj Notes Free Text Obj Notes: Physical Exam General appearance: alert, awake, oriented HEENT : normocephalic ,Atraumatic Eyes: Eyes normal inspection. ENT: Dry mucous membranes present. Neck: Normal inspection. Neck supple. CVS: Normal heart rate and rhythm. Heart sounds normal. Respiratory: No respiratory distress. Breath sounds normal. Abdomen: Soft and nontender. Genitourinary: no bladder distention Back: Normal inspection. Skin: Skin warm. Normal skin color. No rash. Extremities: No lower extremity edema. Neuro: Oriented X 3. No motor deficit No generalized lymph adenopathy Psych normal affect Diagnosis, Assessment Plan Free Text DxA P Notes Free text DxA P notes: Sepsis with ESBL E. coli bacteremia. Acute pyelonephritis due to ESBL E. coli Right kidney stone with right hydronephrosis s/p ureteral stent placement . Appreciate help from urology and ID Pain control Acute kidney injury on CKD stage II IV hydration Renal parameters monitored Nephrology consult appreciated Hypertension Continue home medications and titrate as needed Diabetes 2 Insulin sliding scale Hypomagnesemia - repleted GI/DVT prophylaxis Advanced directive full code Midline today, no oral option, patient received 10 days of IV Merrem / Ertepenem ( on dc) starting from ureteral stent placement, likely home with home health, repeat blood cultures negative for 24 hours, case management for arrangement at 1042 RPT #: [id number] END OF REPORT [facility] 2022-11-23 23:40:00 [facility] ([facility]) Urology Progress Note REPORT#:[id number] REPORT STATUS: Signed DATE:11/23/22 TIME:234 PATIENT: DAVID BELLO HQIRRO David UNIT #: [id number] ROOM/BED: [place] [address] : 79 AGE: 42 SEX: F ATTEND: Glen Nava MD ADM AUTHOR: Brett Rodriguez MD * ALL edits or amendments must be made on the electronic/computer document * Subjective Chief complaint: complicated uti obstructed infected right kidney Comments: no acute events currently minimal pain haivng bm, flatus Objective General VS/I O: Last Documented: Result Date Time Pulse Ox 99 11/23 2010 B/P 143/85 11/23 2010 B/P Mean 104.3 11/23 2010 O2 Delivery Room air 11/23 2010 Temp 97.7 11/23 2010 Pulse 67 11/23 2010 Resp 14 11/23 2010 O2 Flow Rate 2 11/22 829 24 hour I O ending at 0700: 11/23 0700 11/22 1900 Intake Total 420.00 Output Total Balance 420.00 Intake, IV 40.00 Intake, Oral 380 Number Voids 3 PATIENT WEIGHT: Weight (lb): Weight (oz): Weight (kg): 100.000 Physical Exam General appearance: alert, awake, oriented Respiratory: aerating well, symmetric expansion Abdomen: soft, non-tender, no guarding, no distention Diagnosis, Assessment Plan Free Text A P: A: complicated uti infected obstructed right kidney with stone P: s/p stent continue antibiotics culture noted, blood culture positive will need follow up ureteroscopy, to arrange as outpt at 2342 RPT #: [id number] END OF REPORT [facility] 2022-11-23 15:15:00 [facility] ([facility]) Infectious Dis. Progress Note REPORT#:[id number] REPORT STATUS: Signed DATE:11/23/22 TIME:1515 PATIENT: DAVID BELLO UNIT #: [id number] ROOM/BED: [place] [address] : 79 AGE: 42 SEX: F ATTEND: Glen Nava MD ADM AUTHOR: Robyn Haddad MD * ALL edits or amendments must be made on the electronic/computer document * Subjective Comments: endorses feeling better denies any issues with abx therapy some pain with stent reports hematuria has improved Objective General VS/I O: Vital Signs Date Temp Pulse Resp B/P B/P Mean Pulse Ox FiO2 11/22-11/23 97.9-98.2 54-65 12-18 116-153/75-100 88.8-118.0 93-97 Last Documented: Result Date Time Pulse Ox 96 11/23 1551 B/P 138/85 11/23 1551 B/P Mean 102.6 11/23 1551 O2 Delivery Room air 11/23 1551 Temp 97.9 11/23 1551 Pulse 54 11/23 1551 Resp 14 11/23 1551 O2 Flow [...] Weight (lb): Weight (oz): Weight (kg): 100.000 Medications: Active Meds + DC'd Last 24 Hrs Meropenem (MERREM) 500 MG Q8HR IV Sterile Water (WATER FOR INJECTION) 10 ML Docusate Sodium (COLACE) 100 MG BID PO Pregabalin [...] 4 MG Q4H PRN IV (DC) Physical Exam General appearance: no acute distress Head/Eyes: atraumatic, clear cornea, EOMI, normal conjunctiva/sclera, normal eyelids/periorb, normocephalic ENT: moist mucosal membranes, normal nose Neck: supple/no meningismus Cardiovascular: regular rate rhythm Respiratory: symmetric expansion, no distress Abdomen: no distention, no guarding, slight tenderness to palpation Genitourinary: flank pain Extremities: no clubbing, no cyanosis Musculoskeletal: no joint swelling Neuro/PV DESIGN ENGINEER: alert, oriented X 3, CNII-XII intact, normal speech Skin: normal turgor, no rash Psychiatry: normal affect, normal judgment/insight, normal mood Diagnosis, Assessment Plan Free Text A P: Laboratory Tests 11/21/22 0820: [Embedded Image Not Available] 11/20/22 1325: [Embedded Image Not Available] Imaging: Retrop US reviewed 11/20 42-year-old female with h/o [...] blood cultures were sent to document clearance Assessment: 1. Sepsis with ESBL E. coli bacteremia. 2. Acute pyelonephritis due to ESBL E. coli. 3. FRANCI on CKD stage 2. 4. Right kidney stone with right hydronephrosis s/p ureteral stent placement . Plan: 1. Continue meropenem here. Ertapenem at discharge. 2. No oral options to treat as bacterium is resistant to Bactrim and ciprofloxacin. Cephalosporinase? Amp/sul and Zosyn still susceptible? will discuss with Pharm D. --> 3. Duration: 10 days starting from ureteral stent placement. 4. Can place midline once blood cxs are neg for at least 24 h. 5. Monitor CBC. 6. Monitor kidney function. 7. Urology following. 8. Plan discussed with pt, who agreed. Tahnk you for this consult. at 8306 RPT #: [id number] END OF REPORT [facility] [facility] 2022-11-23 15:01:00 [facility] ([facility]) Nephrology Progress Note REPORT#:[id number] REPORT STATUS: Signed DATE:11/23/22 TIME:1501 PATIENT: DAVID BELLO HQLONNIE Hernandez UNIT #: [id number] ROOM/BED: [place] [address] : 79 AGE: 42 SEX: F ATTEND: Glen Nava MD ADM AUTHOR: Arash Rivera MD * ALL edits or amendments must be made on the electronic/computer document * Subjective Chief complaint: FRANCI HPI: 42 yo female with history of HTN, DM, previou episodes of UTI, hypothyrodism, kidney stones, pericardial effusion, s/p pericardiocenthesis, presented to ER c/ o fever and nausea. pateint was recently treated for complicated UTI. Readmitted with fever, weakness and vomiting. Patient fount to have worsening FRANCI and UTI. Patient has hitory of kidney stone, s/p resection; and CKD stage 2 to 3. Renal is consulted for evaluation of renal failure. Comments: Seen and examined at bedside, denies chest pain, SOB, nausea. Review of Systems Free Text ROS Notes Free Text ROS Notes: Ten point review of systems have been performed. Positive and negative pertinent systems have been identified and documented in subjective/ history and physical, otherwise negative. Objective General VS/I O: Vital Signs: Date Time Temp Pulse Resp [...] 40.00 Intake, Oral 380 Number Voids 3 Medications Active Meds + DC'd Last 24 Hrs Meropenem (MERREM) 500 MG Q8HR IV Sterile Water (WATER FOR INJECTION) 10 ML Docusate Sodium (COLACE) 100 MG BID PO Pregabalin [...] SULFATE) 4 MG Q4H PRN IV Physical Exam General appearance: alert, awake Head/eyes: normocephalic ENT: normal nose Neck: supple/no meningismus, no JVD C-Spine clearance: no midline tenderness Cardiovascular: no murmur Respiratory: no distress Abdomen: non-tender, normal bowel sounds, soft Genitourinary: no bladder distention Extremities: no edema Musculoskeletal: no tendereness Neuro/PV DESIGN ENGINEER: alert, oriented X 3 Results Results: no new labs Diagnosis, Assessment Plan Free Text A P: 1. FRANCI on CKD stage 2 to 3. Etiology likely ATN Last creat 2.0 from 2.2 2. Hyponatremia likely hypovolemic hyponatremia. 3. UTI. 4. Right kidney stone / mild to mderate hydronephrosis. 5. HTN. 6. DM. 7. Hypovolemia. Recommendations: 11/23:Continue iv fluids. : Continue with IV fluids. Avoid NSAIDs. Monitor BMP, electrolyte, supplement as needed. 11/21: Continue IV fluids. Avoid NSAID. 11/20: NS 100 ml/hour. Avoid NSAID Urine studies. Drug dose adjustment to GFR. Thank you for the consultation, any question please call [phone]. Plan discussed with: primary care physician, nurse at 2307 RPT #: [id number] END OF REPORT [facility] 2022-11-23 11:28:00 [facility]) Hospitalist Progress Note REPORT#:[id number] REPORT STATUS: Signed DATE:11/23/22 TIME:1128 PATIENT: DAVID BELLO UNIT #: [id number] ROOM/BED: [place] [address] : 79 AGE: 42 SEX: F ATTEND: Glen Nava MD ADM AUTHOR: Grace Castano MD * ALL edits or amendments must be made on the electronic/computer document * Subjective Chief complaint: Stable, no new complaints HPI: 42-year-old female with history of stage II CKD, hypertension, diabetes, pericardial effusion status post pericardiocentesis and large right 1.8 mm stone in the [...] return to the ED because of persistent pain. She reports intractable right flank pain radiating to the right mid abdomen associated with nausea and nonbloody nonbilious emesis. She reports objective fever, chills and extreme diaphoresis. Objective General VS/I O: Vital Signs: Date Time Temp Pulse Resp [...] Weight (oz): Weight (kg): 100.000 Dietitian nutrition assessment The data set between the solid lines has been imported from the dietitian's assessment. BMI Calculated: 36.7 Nutrition related diagnosis: Nutrition diagnosis details: Nutrition problem: Nutrition etiology: Nutrition signs and symptoms: Nutrition prescription: Dietitian name: Assessment completed: Physical Exam General appearance: awake ENT: normal nose Respiratory: aerating well Rectal: deferred Extremities: moves all Neuro/PV DESIGN ENGINEER: alert, oriented X 3 Skin: dry Lymphatics: no lymphadenopathy Free Text Obj Notes Free Text Obj Notes: Physical Exam General appearance: alert, awake, oriented HEENT : normocephalic ,Atraumatic Eyes: Eyes normal inspection. ENT: Dry mucous membranes present. Neck: Normal inspection. Neck supple. CVS: Normal heart rate and rhythm. Heart sounds normal. Respiratory: No respiratory distress. Breath sounds normal. Abdomen: Soft and nontender. Genitourinary: no bladder distention Back: Normal inspection. Skin: Skin warm. Normal skin color. No rash. Extremities: No lower extremity edema. Neuro: Oriented X 3. No motor deficit No generalized lymph adenopathy Psych normal affect Diagnosis, Assessment Plan Free Text DxA P Notes Free text DxA P notes: Sepsis with ESBL E. coli bacteremia. Acute pyelonephritis due to ESBL E. coli Right kidney stone with right hydronephrosis s/p ureteral stent placement . Appreciate help from urology and ID Pain control Acute kidney injury on CKD stage II IV hydration Renal parameters monitored Nephrology consult appreciated Hypertension Continue home medications and titrate as needed Diabetes 2 Insulin sliding scale Hypomagnesemia - repleted GI/DVT prophylaxis Advanced directive full code Midline today, no oral option, patient received 10 days of IV Merrem starting from ureteral stent placement, likely home with home health at 1132 RPT #: [id number] END OF REPORT [facility] 2022-11-22 22:39:00 [facility]) Urology Progress Note REPORT#:[id number] REPORT STATUS: Signed DATE:11/22/22 TIME:2238 PATIENT: DAVID BELLO UNIT #: [id number] ROOM/BED: [place] [address] : 79 AGE: 42 SEX: F ATTEND: Glen Nava MD ADM AUTHOR: Brett Rodriguez MD * ALL edits or amendments must be made on the electronic/computer document * Subjective Chief complaint: complicated uti obstructed infected right kidney Comments: no acute events feels better tolerating stent tolerating po better Objective General VS/I O: Last Documented: Result Date Time Pulse Ox 94 11/23 2019 B/P 121/87 11/23 2019 B/P Mean 98.2 11/23 2019 Pulse 64 11/23 2019 Resp 18 11/23 2019 O2 Flow Rate 2 11/22 0830 O2 Delivery Room air 11/22 07 Temp 97.7 11/22 0716 24 hour I O ending at 0700: 11/22 0700 11/21 1900 Intake Total 400 Output Total Balance 400 Intake, Oral 400 Number Voids 3 PATIENT WEIGHT: Weight (lb): Weight (oz): Weight (kg): 100.000 Physical Exam General appearance: alert, awake, oriented Respiratory: aerating well, symmetric expansion Abdomen: soft, non-tender, no guarding, no distention Diagnosis, Assessment Plan Free Text A P: A: complicated uti infected obstructed right kidney with stone P: s/p stent continue antibiotics culture noted will need follow up ureteroscopy, to arrange as outpt at 2241 RPT #: [id number] END OF REPORT [facility] 2022-11-22 20:29:00 [facility]) Nephrology Progress Note REPORT#:[id number] REPORT STATUS: Signed DATE:11/22/22 TIME:2028 PATIENT: DAVID BELLO HQIRRO N UNIT #: [id number] ROOM/BED: [place] [address] : 79 AGE: 42 SEX: F ATTEND: Glen Nava MD ADM AUTHOR: Arash Rivera MD * ALL edits or amendments must be made on the electronic/computer document * Subjective HPI: 42 yo female with history of HTN, DM, previou episodes of UTI, hypothyrodism, kidney stones, pericardial effusion, s/p pericardiocenthesis, presented to ER c/ o fever and nausea. pateint was recently treated for complicated UTI. Readmitted with fever, weakness and vomiting. Patient fount to have worsening FRANCI and UTI. Patient has hitory of kidney stone, s/p resection; and CKD stage 2 to 3. Renal is consulted for evaluation of renal failure. Comments: Patient seen in the morning at bedside. Denies shortness of breath, chest pain. Creatinine trending down. Review of Systems Free Text ROS Notes Free Text ROS Notes: 10 points review of systems performed and documented in subjective, otherwise negative. Objective General VS/I O: Vital Signs: Date Time Temp Pulse Resp [...] 400 Intake, Oral 400 Number Voids 3 Medications Active Meds + DC'd Last 24 Hrs Meropenem (MERREM) 500 MG Q8HR IV Sterile Water (WATER FOR INJECTION) 10 ML Docusate Sodium (COLACE) 100 MG BID PO Pregabalin (LYRICA) 75 MG BID PO Losartan Potassium (COZAAR) 25 MG DAILY 1800 PO Hydrocodone Bitart/Acetaminophen (NORCO 5/325) 1 TAB PACU ONCE PRN PO ( DC) Hydrocodone Bitart/Acetaminophen (NORCO 10/325) 1 TAB PACU ONCE PRN PO ( DC) Hydromorphone HCl (DILAUDID) 0.5 MG PACU Q10MIN [...] (DC) Sodium Chloride (SODIUM CHLORIDE 0.9%) 100 ML Levothyroxine Sodium (SYNTHROID) 125 MCG AC BK PO Hydromorphone HCl (DILAUDID) 0.2 MG Q6H PRN PRN IV Acetaminophen (TYLENOL) 650 MG Q4H PRN PRN PO Morphine Sulfate (morphine SULFATE) 4 MG Q4H PRN IV Physical Exam General appearance: alert, awake Head/eyes: normocephalic ENT: normal nose Neck: no JVD C-Spine clearance: no midline tenderness Cardiovascular: no murmur Respiratory: no distress Abdomen: non-tender, soft Genitourinary: no bladder distention Extremities: no edema Musculoskeletal: no tendereness Neuro/PV DESIGN ENGINEER: alert, oriented X 3 Diagnosis, Assessment Plan Free Text A P: 1. FRANIC on CKD stage 2 to 3. Etiology likely ATN creat 2.0 from 2.2 2. Hyponatremia likely hypovolemic hyponatremia. 3. UTI. 4. Right kidney stone / mild to mderate hydronephrosis. 5. HTN. 6. DM. 7. Hypovolemia. Recommendations : Continue with IV fluids. Avoid NSAIDs. Monitor BMP, electrolyte, supplement as needed. 11/21: Continue IV fluids. Avoid NSAID. 11/20: NS 100 ml/hour. Avoid NSAID Urine studies. Drug dose adjustment to GFR. Thank you for the consultation, any question please call [phone]. at 2030 RPT #: [id number] END OF REPORT [facility] 2022-11-22 10:42:00 [facility] Infect Disease Consult Note REPORT#:[id number] REPORT STATUS: Signed DATE:11/22/22 TIME:1042 PATIENT: DAVID BELLO UNIT #: [id number] ROOM/BED: [place] [address] : 79 AGE: 42 SEX: F ATTEND: Glen Nava MD ADM AUTHOR: Paul Garrett MD * ALL edits or amendments must be made on the electronic/computer document * See Addendum History of Present Illness Chief complaint: Sepsis HPI: 42-year-old female with h/o CKD stage II, hypertension, diabetes, pericardial effusion s/p pericardiocentesis and large right stone in the distal pole of right kidney, who came with worsening right severe flank pain associated with vomiting and fever. She was admitted on 11/01/22 for obstructive uropathy from a right kidney stone. Urine and blood cxs showed ESBL E. coli. History - Adult longitudinal Past medical history: Reports: Diabetes mellitus, Hypertension, Kidney disease/stones. Additional medical history: Hypertension, diabetes, CKD stage II Past surgical history: Reports: Thyroidectomy. Additional surgical history: reviewed. Kidney stone resetion. Family history: Reports: Hypertension. Additional family history: Mother with kidney stones Alcohol use: Denies EtOH use Drug use: Denies recreational drugs Smoking status for patients 13 years old or older: Never Smoker Allergies: Coded Allergies: sumatriptan (From IMITREX) (ITCHY 08/30/21) Review of Systems Constitutional: Reports: chills, malaise. Skin: Denies: rash. Allergy/Immun: Denies hives Eyes: Denies discharge ENT: Denies: sore throat. Respiratory: Denies: productive cough (sputum). Cardiovascular: Denies: chest pain. GI: Reports: nausea. : Reports: flank pain. Musculoskeletal: Denies: joint swelling. Neuro: Denies: headache. Objective General VS/I O: Vital Signs Date Temp Pulse Resp B/P B/P Mean Pulse Ox FiO2 11/21-11/22 36.3-37.1 64-104 14-34 108-140/64-84 83.1-91.0 89-100 Last [...] (lb): Weight (oz): Weight (kg): 100.000 Physical Exam General appearance: alert, awake, oriented, mental status normal, no respiratory distress Head/Eyes: atraumatic, clear cornea, EOMI, normal conjunctiva/sclera, normal eyelids/periorb, normocephalic ENT: moist mucosal membranes, normal nose Neck: full range of motion, non-tender, supple/no meningismus Cardiovascular: regular rate rhythm Respiratory: symmetric expansion, no distress Abdomen: non-tender, normal bowel sounds, soft, no distention, no guarding, no rebound Genitourinary: flank pain Extremities: no clubbing, no cyanosis Musculoskeletal: no joint swelling Neuro/PV DESIGN ENGINEER: alert, oriented X 3, CNII-XII intact, normal speech Skin: normal turgor, no rash Psychiatry: normal affect, normal judgment/insight, normal mood Diagnosis, Assessment Plan Free Text DxA P Notes Free text DxA P notes: Laboratory Tests 11/21/22 0820: [Embedded Image Not Available] 11/20/22 1325: [Embedded Image Not Available] Imaging: Retrop US reviewed 11/20 Assessment: 1. Sepsis with ESBL E. coli bacteremia. 2. Acute pyelonephritis due to ESBL E. coli. 3. FRANCI on CKD stage 2. 4. Right kidney stone with right hydronephrosis s/p ureteral stent placement . Plan: 1. Switch Zosyn to meropenem. 2. No oral options to treat as bacterium is resistant to Bactrim and ciprofloxacin. 3. Duration: probably 10 days starting from ureteral stent placement. 4. Can place midline once blood cxs are neg for at least 24 h. 5. Monitor CBC. 6. Monitor kidney function. 7. Urology following. 8. Plan discussed with pt, who agreed. Tahnk you for this consult. at 1401 Addendum 1: 11/23/22 1229 by Paul Garrett MD CM consulted to arrange home IV abx (ertapenem). End date: 12/04/22. at 1229 RPT #: [id number] END OF REPORT [facility] 2022-11-22 09:47:00 [facility] ([facility]) Hospitalist Progress Note REPORT#:[id number] REPORT STATUS: Signed DATE:11/22/22 TIME:09 PATIENT: DAVID BELLO HQIRRO N UNIT #: [id number] ROOM/BED: [place] [address] : 79 AGE: 42 SEX: F ATTEND: Glen Nava MD ADM AUTHOR: Glen Nava MD * ALL edits or amendments must be made on the electronic/computer document * Subjective Chief complaint: Afebrile Denies any chest pain Flank pain better HPI: 42-year-old female with history of stage II CKD, hypertension, diabetes, pericardial effusion status post pericardiocentesis and large right 1.8 mm stone in the [...] return to the ED because of persistent pain. She reports intractable right flank pain radiating to the right mid abdomen associated with nausea and nonbloody nonbilious emesis. She reports objective fever, chills and extreme diaphoresis. Objective General VS/I O: Vital Signs: Date Time Temp Pulse Resp B/P B/P Pulse O2 O2 Flow FiO2 Mean Ox Delivery Rate 11/22 0716 97.7 64 14 118/69 85.2 93 Room air 11/21 2306 97.7 79 18 108/73 84.4 98 11/21 2014 98.8 104 17 112/69 83.1 89 11/21 [...] Weight (lb): Weight (oz): Weight (kg): 100.000 Medications: Active Meds + DC'd Last 24 Hrs Meropenem (MERREM) 500 MG Q8HR IV (UNV) Sterile Water (WATER FOR INJECTION) 10 ML Docusate Sodium (COLACE) 100 MG BID PO Pregabalin (LYRICA) 75 MG BID PO Losartan Potassium (COZAAR) 25 MG DAILY 1800 PO Ephedrine Sulfate (ePHEDrine sulfate) 0 .STK-MED ONE .ROUTE (DC) Acetaminophen (TYLENOL EXTRA STRENGTH) 1,000 MG Q6H PO (DC) Hydrocodone Bitart/Acetaminophen (NORCO 5/325) 1 TAB PACU ONCE PRN PO ( DC) Hydrocodone Bitart/Acetaminophen (NORCO 10/325) 1 TAB PACU ONCE PRN PO ( DC) Hydromorphone HCl (DILAUDID) 0.5 MG PACU Q10MIN [...] (DCr) Sodium Chloride (SODIUM CHLORIDE 0.9%) 100 ML Levothyroxine Sodium (SYNTHROID) 125 MCG AC BK [...] 1,000 ML .Q10H IV (DC) Dietitian nutrition assessment The data set between the solid lines has been imported from the dietitian's assessment. BMI Calculated: 36.7 Nutrition related diagnosis: Nutrition diagnosis details: Nutrition problem: Nutrition etiology: Nutrition signs and symptoms: Nutrition prescription: Dietitian name: Assessment completed: Results Findings/Data: Laboratory Tests 11/21 11/21 1621 1129 Chemistry POC Glucose (70 - 110 mg/dL) 114 H 151 H Laboratory Tests 11/21 1623 Serology SARS-CoV-2 Ag (Rapid) (Negative) NEGATIVE Laboratory Tests 11/21 1701 Urines Urine HCG, Qual (NEGATIVE) NEGATIVE Radiology data: Recent Impressions: RADIOLOGY - XR FLUOROSCOPY 0-60 MIN 11/21 1824 Report Impression - Status: SIGNED Entered: 11/21/20222250 IMPRESSION: Fluoroscopic guidance as above. Impression By: [email or web address] Luisa Boyle M.D. Free Text Obj Notes Free Text Obj Notes: Physical Exam General appearance: alert, awake, oriented HEENT : normocephalic ,Atraumatic Eyes: Eyes normal inspection. ENT: Dry mucous membranes present. Neck: Normal inspection. Neck supple. CVS: Normal heart rate and rhythm. Heart sounds normal. Respiratory: No respiratory distress. Breath sounds normal. Abdomen: Soft and nontender. Genitourinary: no bladder distention Back: Normal inspection. Skin: Skin warm. Normal skin color. No rash. Extremities: No lower extremity edema. Neuro: Oriented X 3. No motor deficit No generalized lymph adenopathy Psych normal affect Diagnosis, Assessment Plan Free Text DxA P Notes Free text DxA P notes: UTI with ESBL Antibiotics changed to meropenem We will consult ID Sepsis with positive blood cultures and urine culture with ESBL Blood culture still pending Monitor closely IV hydration Antibiotics continued Hydronephrosis Nephrolithiasis Appreciate help from urology Status post cystoscopy and stent placement Pain control Acute kidney injury on CKD stage II IV hydration Renal parameters monitored Nephrology consult appreciated Hypertension Continue home medications and titrate as needed Diabetes Insulin sliding scale We will get an A1c in a.m. Dehydration Hyponatremia IV fluids Hypomagnesemia We will replace electrolytes GI/DVT prophylaxis Advanced directive full code at 1117 RPT #: [id number] END OF REPORT [facility] 2022-11-21 23:10:00 [id number] [facility] [address] [place] [address] PATIENT NAME: DAVID BELLO ADMIT DATE: 11/20/22 ACCOUNT NO: [id number] ROOM NO: [id number].PO6 AGE: 42 REPORT TYPE: OPERATIVE REPORT SEX: F ADMITTING PHYSICIAN: Glen Nava MD ATTENDING PHYSICIAN: Glen Nava MD OPERATION DATE: 11/21/2022 ATTENDING SURGEON: Brett Rodriguez MD SEATING AND MOBILITY TECHNOLOGIST:None PREOPERATIVE DIAGNOSIS: Infected obstructed right mid renal calculus. POSTOPERATIVE DIAGNOSIS: Infected obstructed right mid renal calculus. PROCEDURES PERFORMED: 1. Cystoscopy. 2. Right retrograde pyelogram with interpretation. 3. Right ureteral stent placement. FINDINGS: 1. Moderate bladder cystitis. 2. Moderate right hydronephrosis with a pyonephrosis. ANESTHESIA: SPECIMEN OBTAINED: None. DRAINS PLACED: A 6 x 24 bb stent. INDICATIONS FOR PROCEDURE: Mrs. Bello is a 42-year-old female who previously had a nonobstructing right renal calculus with pyelonephritis. She continued to have symptoms of UTI after treatment, come up with right-sided flank pain. She has had fevers and leukocytosis. Imaging shows development of right hydronephrosis, presumably due to migration of the stone from lower pole into the dependent renal pelvis. I counseled the patient for an emergent ureteral stent placement. I discussed that this is not a treatment for the stone, she will require another procedure to address the stone after the infection has been cleared, she presents for this now. PROCEDURE IN DETAIL: The patient was brought to the OR on 11/21/2022, the patient had anesthesia inducted without any complication. She was placed into a dorsal lithotomy position and genitalia was prepped and draped in the usual standard sterile manner. At this point, I inserted a 22-Czech cystourethroscope into the bladder. I performed examination of bladder, there was moderate cystitis. No masses or tumors. I identified the right ureteral orifice in normal orthotopic position. I cannulated with a 6-Czech open-ended PATIENT NAME: DAVID BELLO HQMOJGANO David ureteral catheter and performed a retrograde pyelogram. This showed moderate hydroureteronephrosis, there was a radiopaque stone seen on system development manager imaging. I then advanced a wire into the renal pelvis and advanced a ] ureteral stent over the wire, confirmed to be in good position proximally and distally. This marked completion of procedure, bladder was drained. The patient tolerated the procedure well. There were no complications. Dictated By: Brett Rodriguez MD Date Dictated: 11/21/2022 23:10:37 Date Transcribed: 11/21/2022 23:41:41 PPH/RAP/RITU Receipt ID: [id number] Authenticated and Edited by Brett Rodriguez MD On 11/22/22 11:31:41 PM at 1133 PATIENT NAME: DAVID BELLO [facility] 2022-11-21 18:05:00 [facility] ([facility]) Brief Op Note REPORT#:[id number] REPORT STATUS: Signed DATE:11/21/22 TIME:1804 PATIENT: DAVID BELLO UNIT #: [id number] ROOM/BED: [place] [address] : 79 AGE: 42 SEX: F ATTEND: Glen Nava MD ADM AUTHOR: Brett Rodriguez MD * ALL edits or amendments must be made on the electronic/computer document * Op/Inv Proc Note - Brief Pre-procedure diagnosis: infected, obstructing right renal calculi Post-procedure diagnosis: same as pre procedure dx Procedures performed: cystoscopy, right retro/stent placement Primary Surgeon: Jennifer Lands Resource Manager(s): none Findings: moderate right hydronephrosis 1.5 renal pelvic stone pyonephrosis Complications: none Estimated blood loss in ml's: none Specimens removed/altered: none Drain(s): 6x26 bb stent at 1806 RPT #: [id number] END OF REPORT [facility] 2022-11-21 17:08:00 [id number] [facility] [address] [place] [id number] PATIENT NAME: DAVID BLELO HQIRRO N ADMIT DATE: 11/20/22 ACCOUNT NO: [id number] ROOM NO: [facility] AGE: 42 REPORT TYPE: CONSULTATION SEX: F ADMITTING PHYSICIAN: Glen Nava MD ATTENDING PHYSICIAN: Glen Nava MD CONSULTATION DATE: 11/21/2022 CONSULTING PHYSICIAN: Brett Rodriguez MD REQUESTING PHYSICIAN: Glen Nava MD REASON FOR CONSULTATION REQUEST: Infected kidney stone. HISTORY OF PRESENT ILLNESS: Ms. Bello is a 42-year-old female who I saw her in the hospital several weeks ago. At that time, she presented with nonobstructing lower pole stone in the right kidney. She came in with secondary symptoms suggestive of pyelonephritis. She was found to have ESBL E. coli, treated and discharged on antibiotics. The patient saw me in the clinic with plans for management of the lower pole stone. However, she continued to have some persistent pain, malaise and then developed fevers and chills. She came to the ER, a renal ultrasound shows development of moderate hydronephrosis and the stone is likely moved. She is also found to have leukocytosis, fevers. REVIEW OF SYSTEMS: Positive for fevers and chills. Positive for nausea and vomiting. No chest pain or shortness of breath. No dysuria, no gross hematuria. Otherwise, negative 10-point review of symptoms. PAST MEDICAL HISTORY: 1. Hypertension. 2. Diabetes. 3. Chronic renal insufficiency. 4. Urolithiasis PAST SURGICAL HISTORY: Kidney stone, ureteroscopy. SOCIAL HISTORY: Negative x3. FAMILY HISTORY: Noncontributory. PHYSICAL EXAMINATION: VITAL SIGNS: T-max of 102.7, T-current is 98.2, pulse is 74, blood pressure is 115/79. GENERAL: The patient is not in acute distress, alert, awake, oriented. HEENT: Atraumatic, normocephalic. EOMI. NECK: Supple. Trachea is midline. LUNGS: Normal respiratory effort, nonlabored breathing. ABDOMEN: Soft. No rebound or guarding. PATIENT NAME: DAVID BELLO HQIRRO N BACK: No CVA tenderness. EXTREMITIES: No clubbing, cyanosis or edema. LABORATORY DATA: White count of 15.6, hemoglobin count of 9.6. Creatinine of 2 with a BUN of 17. Her urinalysis shows 2+ blood, negative leukocyte esterase, occasional bacteria. PERTINENT IMAGING: Renal ultrasound shows [id number] right hydronephrosis, 1.6 cm stone noted in the right renal pelvis. ASSESSMENT AND PLAN: The patient with right renal calculus. It appears to have moved from the lower pole where it was [...] By: Brett Rodriguez MD Date Dictated: 11/21/2022 17:08:40 Date Transcribed: 11/21/2022 17:53:55 [facility] Receipt ID: [id number] Authenticated by Brett Rodriguez MD On 11/22/2022 11:31:56 PM at 1131 PATIENT NAME: DAIVD BELLO [facility] 2022-11-21 15:07:00 [facility] ([facility]) Nephrology Progress Note REPORT#:[id number] REPORT STATUS: Signed DATE:11/21/22 TIME:1507 PATIENT: DAVID BELLO HQLONNIE Hernandez UNIT #: [id number] ROOM/BED: [address] : [address] AGE: 42 SEX: F ATTEND: Glen Nava MD ADM AUTHOR: Arash Rivera MD * ALL edits or amendments must be made on the electronic/computer document * Subjective HPI: 42 yo female with history of HTN, DM, previou episodes of UTI, hypothyrodism, kidney stones, pericardial effusion, s/p pericardiocenthesis, presented to ER c/ o fever and nausea. pateint was recently treated for complicated UTI. Readmitted with fever, weakness and vomiting. Patient fount to have worsening FRANCI and UTI. Patient has hitory of kidney stone, s/p resection; and CKD stage 2 to 3. Renal is consulted for evaluation of renal failure. Comments: Denies sob. Review of Systems Free Text ROS Notes Free Text ROS Notes: 10 points ROS performed and documented in subjective, otherwise negative. Objective General VS/I O: Vital Signs: Date Time Temp Pulse Resp [...] 100 kg Weight Weight Stated/Reported Measurement Method Medications Active Meds + DC'd Last 24 Hrs Losartan Potassium (COZAAR) 25 MG DAILY 1800 PO Dextrose/Water (DEXTROSE 10% IN WATER 250 ML) 250 ML ASDIR IV Glucagon (GLUCAGON) 1 MG ASDIR PRN IM Piperacillin Sod/Tazobactam Sod (ZOSYN) 3.375 GM Q8H IV Sodium Chloride (SODIUM CHLORIDE 0.9%) 100 ML Levothyroxine Sodium (SYNTHROID) 125 MCG AC BK PO Hydromorphone HCl (DILAUDID) 0.2 MG Q6H PRN PRN IV Sodium Chloride (0.9% Sodium Chloride) 1,000 ML BOLUS IV (DC) Vancomycin HCl (Vancomycin HCl) 1,250 MG ONCE ONE IV (DC) Sodium Chloride (0.9% Sodium Chloride) 250 ML Acetaminophen (TYLENOL) 650 MG Q4H PRN PRN PO Sodium Chloride (0.9% Sodium Chloride) 1,000 ML BOLUS IV (DC) Piperacillin Sod/Tazobactam Sod (ZOSYN) 3.375 GM Q8HR IV (DC) Sodium Chloride (SODIUM CHLORIDE 0.9%) 100 ML Insulin Human Lispro (HUMALOG) 0 AC HS SUBQ (DC) Morphine Sulfate (morphine SULFATE) 4 MG Q4H PRN IV Ondansetron HCl (ZOFRAN) 4 MG Q4H PRN PRN IV Sodium Chloride (0.9% Sodium Chloride) 1,000 ML .Q10H IV (DC) Physical Exam General appearance: awake Head/eyes: normocephalic ENT: normal nose Neck: no JVD C-Spine clearance: no midline tenderness Cardiovascular: no murmur Respiratory: no distress Abdomen: non-tender, soft Genitourinary: no bladder distention Extremities: no edema Musculoskeletal: no tendereness Neuro/PV DESIGN ENGINEER: alert, oriented X 3 Results Findings/Data: Laboratory Tests 11/21 11/21 11/21 11/21 11/21 1129 [...] - 1.2 INR Unit) 1.32 H PTT ([place]) (26 - 35 SECONDS) 30.9 PT Patient/Control [...] - 7.0 pH UNITS) 6.0 Ur Specific Hurley (1.005 - 1.030 SG) <=1.005 Urine Protein [...] 1958 MRSA Screen - COMP NASAL Radiology data: Recent Impressions: ULTRASOUND - US RETROPERITONEAL COM 11/20 1623 Report Impression - Status: SIGNED Entered: 11/20/2022 1644 IMPRESSION: Mild to moderate right-sided hydronephrosis. 1.6 cm kidney stone noted in the right renal pelvis. Impression By: [email or web address] - Ramin Nath D.O. Diagnosis, Assessment Plan Free Text A P: 1. FRANCI on CKD stage 2 to 3. Etiology likely ATN creat 2.0 from 2.2 2. Hyponatremia likely hypovolemic hyponatremia. 3. UTI. 4. Right kidney stone / mild to mderate hydronephrosis. 5. HTN. 6. DM. 7. Hypovolemia. Recommendations 11/21: Continue IV fluids. Avoid NSAID. 11/20: NS 100 ml/hour. Avoid NSAID Urine studies. Drug dose adjustment to GFR. Thank you for the consultation, any question please call [phone]. at 1508 RPT #: [id number] END OF REPORT [facility] 2022-11-21 10:54:00 [facility]) Hospitalist Progress Note REPORT#:[id number] REPORT STATUS: Signed DATE:11/21/22 TIME:1054 PATIENT: DAVID BELLO HQIRRO David UNIT #: [id number] ROOM/BED: [address] : [birth year] AGE: 42 SEX: F ATTEND: Glen Nava MD ADM AUTHOR: Glen Nava MD * ALL edits or amendments must be made on the electronic/computer document * Subjective Chief complaint: Abdominal Pain HPI: 42-year-old female with history of stage II CKD, hypertension, diabetes, pericardial effusion status post pericardiocentesis and large right 1.8 mm stone in the [...] return to the ED because of persistent pain. She reports intractable right flank pain radiating to the right mid abdomen associated with nausea and nonbloody nonbilious emesis. She reports objective fever, chills and extreme diaphoresis. Objective General VS/I O: Vital Signs: Date Time Temp Pulse Resp [...] Weight (lb): Weight (oz): Weight (kg): 100.000 Medications: Active Meds + DC'd Last 24 Hrs Losartan Potassium (COZAAR) 25 MG DAILY 1800 PO Dextrose/Water (DEXTROSE 10% IN WATER 250 ML) 250 ML ASDIR IV Glucagon (GLUCAGON) 1 MG ASDIR PRN IM Piperacillin Sod/Tazobactam Sod (ZOSYN) 3.375 GM Q8H IV Sodium Chloride (SODIUM CHLORIDE 0.9%) 100 ML Levothyroxine Sodium (SYNTHROID) 125 MCG AC BK PO Hydromorphone HCl (DILAUDID) 0.2 MG Q6H PRN PRN IV Sodium Chloride (0.9% Sodium Chloride) 1,000 ML BOLUS IV (DC) Vancomycin HCl (Vancomycin HCl) 1,250 MG ONCE ONE IV (DC) Sodium Chloride (0.9% Sodium Chloride) 250 ML Acetaminophen (TYLENOL) 650 MG Q4H PRN PRN PO Sodium Chloride (0.9% Sodium Chloride) 1,000 ML BOLUS IV (DC) Piperacillin Sod/Tazobactam Sod (ZOSYN) 3.375 GM Q8HR IV (DC) Sodium Chloride (SODIUM CHLORIDE 0.9%) 100 ML Insulin Human Lispro (HUMALOG) 0 AC HS SUBQ Morphine Sulfate (morphine SULFATE) 4 MG Q4H PRN IV Ondansetron HCl (ZOFRAN) 4 MG Q4H PRN PRN IV Sodium Chloride (0.9% Sodium Chloride) 1,000 ML .Q10H IV Ampicillin Sodium/Sulbactam Sodium (UNASYN 3 GM) 3 GM X1ED STA IV (DC) Sodium Chloride (SODIUM CHLORIDE 0.9%) 100 ML Sodium Chloride (0.9% Sodium Chloride) 1,000 ML X1ED STA IV (DC) Dietitian nutrition assessment The data set between the solid lines has been imported from the dietitian's assessment. BMI Calculated: 36.7 Nutrition related diagnosis: Nutrition diagnosis details: Nutrition problem: Nutrition etiology: Nutrition signs and symptoms: Nutrition prescription: Dietitian name: Assessment completed: Results Findings/Data: Laboratory Tests 11/21/22 0820: [Embedded Image Not Available] 11/21/22 0442: [Embedded Image Not Available] 11/20/22 1325: [Embedded Image Not Available] 11/20/22 1324: [Embedded Image Not Available] Laboratory Tests 11/21 11/21 11/21 11/21 11/21 1129 [...] - 1.2 INR Unit) 1.32 H PTT ([place]) (26 - 35 SECONDS) 30.9 PT Patient/Control [...] - 7.0 pH UNITS) 6.0 Ur Specific Hurley (1.005 - 1.030 SG) <=1.005 Urine Protein [...] 1958 MRSA Screen - COMP NASAL Radiology data: Recent Impressions: ULTRASOUND - US RETROPERITONEAL COM 11/20 162 Report Impression - Status: SIGNED Entered: 11/20/2022 1644 IMPRESSION: Mild to moderate right-sided hydronephrosis. 1.6 cm kidney stone noted in the right renal pelvis. Impression By: [email or web address] - Ramin Nath D.O. Free Text Obj Notes Free Text Obj Notes: Physical Exam General appearance: alert, awake, oriented HEENT : normocephalic ,Atraumatic Eyes: Eyes normal inspection. ENT: Dry mucous membranes present. Neck: Normal inspection. Neck supple. CVS: Normal heart rate and rhythm. Heart sounds normal. Respiratory: No respiratory distress. Breath sounds normal. Abdomen: Soft and nontender. Genitourinary: no bladder distention Back: Normal inspection. Skin: Skin warm. Normal skin color. No rash. Extremities: No lower extremity edema. Neuro: Oriented X 3. No motor deficit No generalized lymph adenopathy Psych normal affect Diagnosis, Assessment Plan Free Text DxA P Notes Free text DxA P notes: UTI Hydronephrosis Nephrolithiasis Acute kidney injury on CKD stage II Hypertension, Diabetes Dehydration Hyponatremia Plan IV fluids Started on IV antibiotics Waiting for cultures Nephrology consulted Urology consult placed Pain control Electrolytes monitor and replace accordingly Hypomagnesemia noted We will replace electrolytes GI/DVT prophylaxis Advanced directive full code at 1330 RPT #: [id number] END OF REPORT [facility] 2022-11-21 04:55:00 [facility] ([facility]) Critical Care Event Note REPORT#:[id number] REPORT STATUS: Signed DATE:11/21/22 TIME:0455 PATIENT: DAVID BELLO UNIT #: [id number] ROOM/BED: [place] [address] : 79 AGE: 42 SEX: F ATTEND: Glen Nava MD ADM AUTHOR: Marialuisa Chowdhury * ALL edits or amendments must be made on the electronic/computer document * Critical Care Event Event Note Event type: Sepsis alert Event details: Patient is s/p large right 1.8 mm stone [...] and/or pt progresses to septic shock will get 30ml/kg IVF required at 0947 at 1146 RPT #: [id number] END OF REPORT [facility] 2022-11-20 20:05:00 [facility]) Nephrology Consultation Note REPORT#:[id number] REPORT STATUS: Signed DATE:11/20/22 TIME:2004 PATIENT: DAVID BELLO UNIT #: [id number] ROOM/BED: [facility] : 79 AGE: 42 SEX: F ATTEND: Glen Nava MD ADM AUTHOR: Arash Rivera MD * ALL edits or amendments must be made on the electronic/computer document * History of Present Illness Reason for consult: franci PCP: PCP: Javi Cuadra MD HPI: 42 yo female with history of HTN, DM, previou episodes of UTI, hypothyrodism, kidney stones, pericardial effusion, s/p pericardiocenthesis, presented to ER c/ o fever and nausea. pateint was recently treated for complicated UTI. Readmitted with fever, weakness and vomiting. Patient fount to have worsening FRANCI and UTI. Patient has hitory of kidney stone, s/p resection; and CKD stage 2 to 3. Renal is consulted for evaluation of renal failure. History - Adult longitudinal Past medical history: Reports: Diabetes mellitus, Hypertension, Kidney disease/stones. Past surgical history: Reports: Thyroidectomy. Additional surgical history: reviewed. Kidney stone resetion. Additional family history: Mother with kidney stones Alcohol use: Denies EtOH use Drug use: Denies recreational drugs Smoking status for patients 13 years old or older: Never Smoker Medications: Home Medications: Medication Dose/Rte/Freq Days Qty Entered Last Max Daily Dose Reviewed SEMAGLUTIDE 1 MG SUBQ Q7D 11/02/22 11/20/22 (OZEMPIC PEN (4 MG/3mL)) 0822 1748 Strength: 1 MG/0.75 ML (4 MG/3 ML) PEN.INJCTR LOSARTAN (COZAAR) 25 MG PO DAILY 1800 30 11/04/22 11/20/22 Strength: 25 MG TAB 1350 1748 LEVOTHYROXINE 125 MCG PO 30 11/04/22 11/20/22 (SYNTHROID) DAILY 0700 1350 1749 Strength: 125 MCG TAB HYDROcodone/APAP 1 TAB PO Q4H 12 11/07/22 11/20/22 (HYDROcodone/APAP 0923 1750 7.5/325) Strength: 7.5 MG-325 MG TAB Current Hospital Medications: Anti-Infective Agents Sig/Mona Start time Last Medication Dose [...] Time Status Admin Sodium Chloride 1,000 ML .[id number] 11/20 1545 AC 11/20 (0.9% Sodium IV [...] 11/20 1630 AC (HUMALOG) SUBQ 11/21 1438 Allergies: Coded Allergies: sumatriptan (From IMITREX) (ITCHY 08/30/21) Review of Systems Free Text ROS Notes Free Text ROS Notes: 10 pointes ROS performed and documented in subjective, otherwise negative. Objective General VS/I O: Vital Signs: Date Time Temp Pulse Resp B/P B/P Pulse O2 O2 Flow FiO2 Mean Ox Delivery Rate 11/20 1827 37.1 83 18 111/71 84.4 96 11/20 1522 100 14 103/69 80.2 95 11/20 1519 37.7 101 18 85/51 62.5 96 11/20 1303 37.1 113 17 100/79 86 95 Room air PATIENT WEIGHT: Weight (lb): Weight (oz): Weight (kg): 100.000 Medications: Active Meds + DC'd Last 24 Hrs Piperacillin Sod/Tazobactam Sod (ZOSYN) 3.375 GM Q8HR IV (UNV) Sodium Chloride (SODIUM CHLORIDE 0.9%) 100 ML Insulin Human Lispro (HUMALOG) 0 AC HS SUBQ Morphine Sulfate (morphine SULFATE) 4 MG Q4H PRN IV Ondansetron HCl (ZOFRAN) 4 MG Q4H PRN PRN IV Sodium Chloride (0.9% Sodium Chloride) 1,000 ML .[id number] IV Ampicillin Sodium/Sulbactam Sodium (UNASYN 3 GM) 3 GM X1ED STA IV (DC) Sodium Chloride (SODIUM CHLORIDE 0.9%) 100 ML Morphine Sulfate (morphine SULFATE) 4 MG X1ED STA IV (DC) Ondansetron HCl (ZOFRAN) 4 MG X1ED STA IV (DC) Sodium Chloride (0.9% Sodium Chloride) 1,000 ML X1ED STA IV (DC) Physical Exam General appearance: awake Head/eyes: normocephalic ENT: normal nose Neck: no JVD C-Spine clearance: no midline tenderness Cardiovascular: no murmur Respiratory: no distress Abdomen: non-tender, soft Genitourinary: no bladder distention Extremities: no edema Musculoskeletal: no tendereness Neuro/PV DESIGN ENGINEER: alert, oriented X 3 Results Findings/Data: Laboratory Tests 11/20 11/20 11/20 11/20 1834 1512 [...] (NONE) TRACE Ovalocytes (NONE ON SCAN) TRACE [place] Cells (NONE ON SCAN) TRACE Laboratory Tests 11/20 1324 Urines Urine Color (YEL/STRAW discript) YELLOW Urine Appearance (CLEAR discript) SL CLOUDY Urine pH (5.0 - 7.0 pH UNITS) 5.5 Ur Specific Hurley (1.005 - 1.030 SG) 1.015 Urine Protein [...] Screen (Culture CHK Criteria) YES,WBC>10 EPI<25 Radiology data: Recent Impressions: ULTRASOUND - US RETROPERITONEAL COM 11/203 Report Impression - Status: SIGNED Entered: 11/20/2022 1644 IMPRESSION: Mild to moderate right-sided hydronephrosis. 1.6 cm kidney stone noted in the right renal pelvis. Impression By: [email or web address] - Ramin Nath D.O. Diagnosis, Assessment Plan Free Text DxA P Notes Free Text DxA P Notes: 1. FRANCI on CKD stage 2 to 3. Etiology likely ATN 2. Hyponatremia likely hypovolemic hyponatremia. 3. UTI. 4. Right kidney stone / mild to mderate hydronephrosis. 5. HTN. 6. DM. 7. Hypovolemia. Recommendations NS 100 ml/hour. Avoid NSAID Urine studies. Drug dose adjustment to GFR. Thank you for the consultation, any question please call [phone]. at 2012 RPT #: [id number] END OF REPORT [facility] 2022-11-20 17:31:00 [facility] ([facility]) Hospitalist History Physical REPORT#:[id number] REPORT STATUS: Signed DATE:11/20/22 TIME:1731 PATIENT: DAVID BELLO HQIRRO David UNIT #: [id number] ROOM/BED: [place] [address] : 79 AGE: 42 SEX: F ATTEND: Glen Nava MD ADM AUTHOR: Glen Nava MD * ALL edits or amendments must be made on the electronic/computer document * See Addendum History of Present Illness HPI Chief complaint: Abdominal Pain HPI: 42-year-old female with history of stage II CKD, hypertension, diabetes, pericardial effusion status post pericardiocentesis and large right 1.8 mm stone in the [...] return to the ED because of persistent pain. She reports intractable right flank pain radiating to the right mid abdomen associated with nausea and nonbloody nonbilious emesis. She reports objective fever, chills and extreme diaphoresis. History Past Medical Surgical Hx Additional medical history: Hypertension, diabetes, CKD stage II Additional surgical history: reviewed. Kidney stone resetion. Family History Family history: Reports: Hypertension. Additional family history: Mother with kidney stones Social History Alcohol use: Denies EtOH use Drug use: Denies recreational drugs Smoking status for patients 13 years old or older: Never Smoker Medication/Allergy-Vaccine Hx Medications: Home Medications: SEMAGLUTIDE (OZEMPIC PEN (4 MG/3mL)) 1 MG SUBQ Q7D LOSARTAN (COZAAR) 25 MG PO DAILY 1800 LEVOTHYROXINE (SYNTHROID) 125 MCG PO DAILY 0700 HYDROcodone/APAP (HYDROcodone/APAP 7.5/325) 1 TAB PO Q4H Allergies: Coded Allergies: sumatriptan (From IMITREX) (ITCHY 08/30/21) Review of Systems Free Text ROS Notes Free Text ROS Notes: Constitutional: Reports: generalized weakness. Skin: Denies: rash. Allergy/Immun: Denies: rhinorrhea, sneezing. Eyes: Denies: visual loss/blurred. ENT: Denies: earache, nasal congestion. Respiratory: Denies: non productive cough. Cardiovascular: Denies: chest pain, palpitations. GI: Denies: diarrhea, nausea. : Denies: dysuria. Musculoskeletal: Reports: arthritis. Denies: extremity pain. Heme: Denies: bleeding. Endocrine: Denies: polydipsia. Neuro: Reports: dizziness, gait problem, lightheaded, spinning sensation. Psych: Reports: anxiety. All systems rev neg: except as noted OBJECTIVE VS/I O: Vital Signs Date Temp Pulse Resp B/P B/P [...] and BMI Weight (kg): 100.000 BMI: 36.7 Medications: Active Meds + DC'd Last 24 Hrs Insulin Human Lispro (HUMALOG) 0 AC HS SUBQ Morphine Sulfate (morphine SULFATE) 4 MG Q4H PRN IV Ondansetron HCl (ZOFRAN) 4 MG Q4H PRN PRN IV Sodium Chloride (0.9% Sodium Chloride) 1,000 ML .[id number] IV Ampicillin Sodium/Sulbactam Sodium (UNASYN 3 GM) 3 GM X1ED STA IV (DC) Sodium Chloride (SODIUM CHLORIDE 0.9%) 100 ML Morphine Sulfate (morphine SULFATE) 4 MG X1ED STA IV (DC) Ondansetron HCl (ZOFRAN) 4 MG X1ED STA IV (DC) Sodium Chloride (0.9% Sodium Chloride) 1,000 ML X1ED STA IV (DC) Results Findings/Data: Laboratory Tests 11/20/22 1325: [Embedded Image Not Available] 11/20/22 1324: [Embedded Image Not Available] Laboratory Tests: 11/20 11/20 11/20 1512 1325 1324 Chemistry Sodium (134 - [...] Ratio (1.2 - 2.2 RATIO) 0.5 L Hematology WBC (3.5 - 11.0 K/mm3) 10.5 [...] SCAN) TRACE Lindsay Cells (NONE ON SCAN) TRACE Urines Urine Color (YEL/STRAW discript) YELLOW Urine Appearance (CLEAR discript) SL CLOUDY Urine pH (5.0 - 7.0 pH UNITS) 5.5 Ur Specific Hurley (1.005 - 1.030 SG) 1.015 Urine Protein [...] CHK Criteria) YES,WBC>10 EPI<25 Laboratory Tests 11/20/22 1325: [Embedded Image Not Available] 11/20/22 1324: [Embedded Image Not Available] Radiology data: Recent Impressions: ULTRASOUND - US RETROPERITONEAL COM 11/20 1623 Report Impression - Status: SIGNED Entered: 11/20/2022 1644 IMPRESSION: Mild to moderate right-sided hydronephrosis. 1.6 cm kidney stone noted in the right renal pelvis. Impression By: [email or web address] - Ramin Nath D.O. Free Text PE Notes Free Text PE Notes: Physical Exam General appearance: alert, awake, oriented HEENT : normocephalic ,Atraumatic Eyes: Eyes normal inspection. ENT: Dry mucous membranes present. Neck: Normal inspection. Neck supple. CVS: Normal heart rate and rhythm. Heart sounds normal. Respiratory: No respiratory distress. Breath sounds normal. Abdomen: Soft and nontender. Genitourinary: no bladder distention Back: Normal inspection. Skin: Skin warm. Normal skin color. No rash. Extremities: No lower extremity edema. Neuro: Oriented X 3. No motor deficit No generalized lymph adenopathy Psych normal affect Diagnosis, Assessment Plan Free Text A P: UTI Hydronephrosis Nephrolithiasis Acute kidney injury on CKD stage II Hypertension, Diabetes Dehydration Hyponatremia Plan IV fluids Started on IV antibiotics Waiting for cultures Nephrology consulted Urology consult placed Pain control Electrolytes monitor and replace accordingly Hypomagnesemia noted We will replace electrolytes GI/DVT prophylaxis Advanced directive full code at 1331 Addendum 1: 11/26/22 1650 by Glen Nava MD 11/11/2022 1412 Severe sepsis secondary to pyelonephritis Patient met 2 SIRS HR 113 and respiratory rate of 22 Source infection pyelonephritis Lactic acid 3.6 No septic shock Increased creatinine due to CKD stage II at 1652 RPT #: [id number] END OF REPORT [facility] 2022-11-20 13:17:00 [facility]) EMERGENCY PROVIDER REPORT REPORT#:[id number] REPORT STATUS: Signed DATE:11/20/22 TIME:131 PATIENT: DAVID BELLO HQIRRO N UNIT #: [id number] ROOM[address]BED: [address] : [birth year] AGE: 42 SEX: F PCP PHYS: Javi Cuadra MD SERVICE AUTHOR: Trinh Schumacher * ALL edits or amendments must be made on the electronic/computer document * Trinh Schumacher 11/20/22 1317: HPI- Female Free Text HPI Notes Free Text HPI Notes 42-year-old female with history of stage II CKD, hypertension, diabetes, pericardial effusion status post pericardiocentesis and large right 1.8 mm stone in the distal pole of right kidney presents to ED with worsening right flank pain. This is the patient's fourth visit in the last 3 weeks. She was admitted on 11/01 for obstructive uropathy from [...] to the ED a week later for persistent pain. She did not required admission at that [...] chills and extreme diaphoresis, dysuria, urniary frequency. General Confirmed Patient Yes Initial Greet Date/Time 11/20/22 1256 Presentation Chief Complaint Blood in urine, Dysuria, Flank pain R Hx Obtained From Patient )( Sudden in Onset? No Onset Occurred Weeks ago (3) Review of Systems ROS Statements All systems rev neg except as marked. Free Text ROS Notes Free Text ROS Notes Per HPI Past Medical History - Adult Stated Complaint KIDNEY STONES CAME BEFOREFOR THE SAME REASON Allergies Coded Allergies: sumatriptan (From IMITREX) (ITCHY 08/30/21) Home Medications Active Scripts LOSARTAN (COZAAR) 25 MG PO DAILY 1800 LOSARTAN (COZAAR) 25 MG PO DAILY 1800 #30 TAB Ref 1 Prov: 11/04/22 LEVOTHYROXINE (SYNTHROID) 125 MCG PO DAILY 0700 LEVOTHYROXINE (SYNTHROID) 125 MCG PO DAILY 0700 #30 TAB Ref 1 Prov: 11/04/22 HYDROcodone/APAP (HYDROcodone/APAP 7.5/325) 1 TAB PO Q4H HYDROcodone/APAP (HYDROcodone/APAP 7.5/325) 1 TAB PO Q4H #12 TABS Prov: 11/07/22 Discontinued Scripts AMOXICILLIN/CLAV K (AUGMENTIN 875/125 MG) 875 MG PO Q12H 12 Days #24 TABS Prov: 11/04/22 DC: 11/20/22 1750 DC prior to admit AMOXICILLIN/CLAV K (AUGMENTIN 875/125 MG) 875 MG PO Q12H AMOXICILLIN/CLAV K (AUGMENTIN 875/125 MG) 875 MG PO Q12H #14 TABS Prov: 11/07/22 DC: 11/20/22 1750 DC prior to admit ONDANSETRON ODT (ZOFRAN ODT) 4 MG PO Q6H PRN PRN NAUSEA/VOMITING ONDANSETRON ODT (ZOFRAN ODT) 4 MG PO Q6H PRN PRN NAUSEA/VOMITING #15 TABS Prov: 11/07/22 DC: 11/20/22 1750 DC prior to admit Reported Medications SEMAGLUTIDE (OZEMPIC PEN (4 MG/3mL)) 1 MG SUBQ Q7D Past Medical History: Reports: Diabetes mellitus, Hypertension, Kidney disease/stones. Past Surgical History: Reports: Thyroidectomy. Additional Surgical History reviewed. Kidney stone resetion. Additional Family History Mother with kidney stones Alcohol Use Denies EtOH use Drug Use Denies recreational drugs Physical Exam Vital Signs Vital Signs First Documented: Result Date Time Pulse Ox 95 [...] 1303 Review of Vital Signs Reviewed Focused PE General/Const General/Const visibly uncomfortable 2/2 pain Resp/Chest Respiratory/Chest Breath sounds NL, Breath sounds = bilat, No respiratory distress, No rales, No rhonchi, No wheezing Cardiovascular Cardiovascular Regular rhythm, Heart sounds NL, No gallop, No murmurs, No rubs, tachychardic 2/2 pain Abdomen/GI Abdomen/GI Soft, Non-tender, McBurney's non-tender, No guarding, No rebound, BS normoactive MS Back Back R CVA TTP Genitourinary General Exam deferred Interpretation Diagnostics Lab Results Interpretation Results Laboratory Tests 11/20/22 1325: [Embedded Image Not Available] 11/20/22 1324: [Embedded Image Not Available] Laboratory Tests: 11/20 11/20 11/20 1512 1325 1324 Chemistry Sodium (134 - [...] Ratio (1.2 - 2.2 RATIO) 0.5 L Hematology WBC (3.5 - 11.0 K/mm3) 10.5 [...] (NONE) TRACE Ovalocytes (NONE ON SCAN) TRACE [place] Cells (NONE ON SCAN) TRACE Urines Urine Color (YEL/STRAW discript) YELLOW Urine Appearance (CLEAR discript) SL CLOUDY Urine pH (5.0 - 7.0 pH UNITS) 5.5 Ur Specific Hurley (1.005 - 1.030 SG) 1.015 Urine Protein [...] Date/Time Procedure - Status Source Growth 11/20 132 Blood Culture - RECD BLOOD 11/20 1324 Blood Culture - RECD BLOOD 11/20 1316 Urine Culture - RECD URINE Lab Imaging Statement Laboratory radiographic studies reviewed and considered in the medical decision-making. Re-Evaluation MDM Free Text MDM Notes Free Text MDM Notes Patient's first lactic acid was 3.6 but her white count was 10.3. Lactic acidosis likely related to evolving CKD/worsening CKD and not from sepsis. Re-Evaluation/Progress Re-Evaluation/Progress Text/Dict Note pain better controlled. FRANCI on CKD with Ct 2.4. Plan for admission and will consult KUMAR Estrada. Time of Re-Eval 1526 Re-Eval Status Improved ED Course Medication(s) Ordered Medication(s) Ordered: Anti-Infective Agents Sig/Mona Start time Last Medication Dose [...] 1630 AC 11/20 SUBQ 11/21 1438 2120 Consultation Consultation Referral/Consult Name Brett Rodriguez MD Salesperson [employer] Called Urology Requested Call Time 1533 Requested Call Date 11/20/22 Call Returned Call returned Call Returned Time 1542 Call Returned Date 11/20/22 Free Text Consult Notes REcommended renal US. Does not think renal pole stone is source of pain, but will see and re-eval. Differential Diagnosis Differential Diagnosis Ureterolithiasis, Urinary obstruction, Urinary tract infection, FRANCI on CKD, electrolyte abnormality. , Pt tachycardic 2/2 pain and HR is currently only SIRS criteria. Previous admission reviewed and given h/o sepsis in 2019, will order cultures and lactic acid, but not activate code sepsis unless other SIRS criteria present. Given h/o ESBL UTI, will give dose of IV Unasyn since that is what it was previously sensitive to. Manage pain, IVF, NPO with anticipation of admission MDM-Complexity Severity/Chronicity Evaluation acute on chronic CKD, intractable flank pain MDM-History/Test Information Independent Hx From/Why previoius medical record and MDM-Treatment/Evaluation Shared Decision-Making Reviewed labs with patient. Discussed need for admission for consult, pain control and nephrology consult for worsening CKD Patient Discharge Departure Vital Signs/Condition Vital Signs First Documented: Result Date Time Pulse Ox 95 [...] of this entry have been reviewed. Clinical Impression Clinical Impression Primary Impression: Pyelonephritis Secondary Impressions: Acute kidney injury superimposed on chronic kidney disease, Hyponatremia, Renal colic Disposition Decision Hospitalize Hosp Physician Name Glen Nava MD [facility] Physician Hospitalist Request Time 1545 Request Date 11/20/22 )( Accepts Hospitalization Yes )( Reason for Hospitalization worsening CKD, poor pain control )( Accepted Time 1545 )( Accepted Date 11/20/22 Call Information will see patient Discharge/Care Plan Counseled Regarding Diagnosis, Lab results, Imaging studies, Need for admission Link An 11/21/22 0707: Patient Discharge Departure Supervising Physician Note MidLv Saw Pt Alone I have reviewed the PA/CHARGE GANG WEIGHER's note and plan of care. I was available for consultation as needed at all times during the patient's visit in the emergency department. I agree with the clinical impression, plan and disposition. at 1823 at 0707 RPT #: [id number] END OF REPORT [facility] 2022-11-07 07:27:00 [facility] ([facility]) EMERGENCY PROVIDER REPORT REPORT#:[id number] REPORT STATUS: Signed DATE:11/07/22 TIME:726 PATIENT: DAVID BELLO HQIRRO N UNIT #: [id number] ROOM/BED: : 79 AGE: 42 SEX: F PCP PHYS: Javi Cuadra MD SERVICE AUTHOR: Rony Hickey DO * ALL edits or amendments must be made on the electronic/computer document * HPI-General Illness General Initial Greet Date/Time 11/07/22 0618 Presentation Chief Complaint R flank pain Free Text HPI Notes Free Text HPI Notes 42 yo female with history of HTN, DM, [...] to Unasyn and Augmentin. She received Unasyn in the hospital and was discharged on Augmentin 3 days ago, but there was a problem at the pharmacy, so she has not been taking this. However, she did continue a couple days of the previously prescribed Bactrim After taking the course of Augmentin, she was to follow-up with uro in 1 to 2 weeks for definitive treatment of the stone She returns now with increasing nausea and pain overnight pcp- Chelsie uro - [facility] Prev hosp - [facility] Review of Systems ROS Statements All systems rev neg except as marked. Free Text ROS Notes Free Text ROS Notes Patient denies fever, chest pain, shortness of breath, cough, melena, hematuria, hematochezia, lower extremity swelling or calf pain. Past Medical History - Adult Stated Complaint L/S-11/01 FOR UTI KIDNEY STONE-STILL EXP PAIN/NAUS Allergies Coded Allergies: sumatriptan (From IMITREX) (ITCHY 08/30/21) Home Medications Active Scripts LOSARTAN (COZAAR) 25 MG PO DAILY 1800 LOSARTAN (COZAAR) 25 MG PO DAILY 1800 #30 TAB Ref 1 Prov: 11/04/22 LEVOTHYROXINE (SYNTHROID) 125 MCG PO DAILY 0700 LEVOTHYROXINE (SYNTHROID) 125 MCG PO DAILY 0700 #30 TAB Ref 1 Prov: 11/04/22 AMOXICILLIN/CLAV K (AUGMENTIN 875/125 MG) 875 MG PO Q12H 12 Days #24 TABS Prov: 11/04/22 Discontinued Scripts CEPHALEXIN (KEFLEX) 500 MG PO Q12HR CEPHALEXIN (KEFLEX) 500 MG PO Q12HR #20 CAPS Prov: 08/31/21 DC: 11/01/22 2141 Change of medication KETOROLAC (TORADOL) 10 MG PO Q6H PRN PRN PAIN KETOROLAC (TORADOL) 10 MG PO Q6H PRN PRN PAIN #20 TABS Prov: 08/31/21 DC: 11/01/22 9062 Change of medication Reported Medications SEMAGLUTIDE (OZEMPIC PEN (4 MG/3mL)) 1 MG SUBQ Q7D Discontinued Reported Medications LOSARTAN (COZAAR) 25 MG PO DAILY 1800 LEVOTHYROXINE (SYNTHROID) 125 MCG PO DAILY 0700 Physical Exam Vital Signs Vital Signs First Documented: Result Date Time Pulse Ox 100 11/08 627 B/P 128/90 11/08 627 B/P Mean 102 11/08 627 O2 Delivery Room air 11/08 627 Temp 37.1 11/08 627 Pulse 81 11/08 627 Resp 11/07 Last Documented: Result Date Time Pulse Ox 100 11/08 627 B/P 128/90 11/08 627 B/P Mean 102 11/08 627 O2 Delivery Room air 11/08 627 Temp 37.1 11/08 627 Pulse 81 11/08 627 Resp 11/07 Review of Vital Signs Reviewed Free Text PE Notes Free Text PE Notes General/Const General/Const Awake, Alert, moderate distress with ongoing right flank pain and nausea MS Head Head Atraumatic Eyes Eyes Atraumatic, EOMI, No scleral icterus Ears/Nose/Throat Ears/Nose/Throat Airway patent, Mucous membranes moist, Pharynx NL, No peritonsillar abscess, Nose exam NL, No facial swelling MS Neck Neck Supple, No meningismus, Full range of motion, No adenopathy, No midline vertebral tend, No masses Resp/Chest Respiratory/Chest Atraumatic, Breath sounds NL, No respiratory distress, No rales, No rhonchi, No wheezing Cardiovascular Cardiovascular Heart rate NL, Regular rhythm, Heart sounds NL, No gallop, No murmurs, No rubs, Peripheral circulation NL Abdomen/GI Abdomen/GI Soft, Non-tender, No guarding; positive moderate CVA tenderness on the right MS Back Back Inspection NL, Non-tender at midline Lymphatic Lymphatic No cervical adenopathy MS Upper Extrem Upper Extremity/MS Inspection NL Skin Skin Color NL, No rash, Warm Genitourinary General Exam deferred Rectum Rectum/Perineum Exam deferred Neurologic Neurologic Oriented X3, Speech NL, CN II - XII intact Psychiatric Psychiatric Affect NL Interpretation Diagnostics Lab Results Interpretation Results Laboratory Tests 11/07/22 0646: [Embedded Image Not Available] Laboratory Tests: 11/07 11/07 11/07 0800 0646 0633 [...] (Auto) (20.5 - 51.1 %) 11.5 L [place] % (Auto) (1.7 - 9.3 %) 5.3 Eos % (Auto) (0.0 - 6.0 %) 0.4 Baso % (Auto) (0.0 - 2.0 %) 0.4 Neut # (Auto) (1.8 - 7.6 K/mm3) 7.0 Lymph # (Auto) (0.6 - 3.2 K/mm3) 1.0 [place] # (Auto) (0.3 - 1.1 K/mm3) 0.5 [...] - 7.0 pH UNITS) 6.5 Ur Specific Hurley (1.005 - 1.030 SG) 1.010 Urine Protein [...] (NEGATIVE) NEGATIVE Re-Evaluation MDM Free Text MDM Notes Free Text MDM Notes DDx acute renal insufficiency/renal failure, UTI, ureteral hydronephrosis, [...] NSAIDs. She will call and set up an appointment for her follow-up with urology she is given extensive education and return precautions will come back if any worsening despite treatment ED Course Medication(s) Ordered Medication(s) Ordered: Anti-Infective Agents Sig/Mona Start time Last Medication Dose [...] 11/07 0835 DC 11/07 Tromethamine IV 11/07 08 0911 Hydrocodone Bitart/ 1 TAB X1ED STA 11/07 0629 DC 11/07 Acetaminophen PO 11/07 0630 0639 Gastrointestinal Drugs Sig/Mona Start time Last Medication Dose Route Stop Time Status Admin Ondansetron HCl 4 MG X1ED STA 11/07 0629 DC 11/07 SL 11/07 0630 0639 Patient Discharge Departure Vital Signs/Condition Vital Signs First Documented: Result Date Time Pulse Ox 100 11/07 0628 B/P 128/90 11/07 0628 B/P Mean 102 11/07 0628 O2 Delivery Room air 11/07 0628 Temp 37.1 11/07 0628 Pulse 81 / 0628 Resp 16 11/07 0628 Last Documented: Result Date Time Pulse Ox 100 11/07 0628 B/P 128/90 11/07 0628 B/P Mean 102 11/07 0628 O2 Delivery Room air 11/07 0628 Temp 37.1 11/07 0628 Pulse 81 11/07 0628 Resp 16 11/07 0628 All vital signs available at the time of this entry have been reviewed. Condition Stable Clinical Impression Clinical Impression Primary Impression: Obstruction of ureteropelvic junction (UPJ) due to stone Secondary Impressions: Flank pain, Noncompliance with medication regimen, UTI ( urinary tract infection) Disposition Decision Discharge )( Discharged to Home Yes )( Time 0903 )( Date 11/07/22 Discharge/Care Plan (Auto) Prescriptions Current Visit Scripts HYDROcodone/APAP (HYDROcodone/APAP 7.5/325) 1 TAB PO Q4H HYDROcodone/APAP [...] TABS Patient Instructions ED Kidney Stone with Pain Additional Instructions Gavin, as discussed, fortunately your kidney function today looks fairly stable and the urine does not show any worsening evidence of infection despite only taken a couple doses of the previous prescribed Bactrim. Please go to the [facility] pharmacy on [address] to cloth picker the Augmentin, but call make sure they have this by the time that you are ready to pick it up. Please take the full course as directed and use the pain medicine as needed, but add a stool softener if you are taking this and make sure you stay well-hydrated. 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 Call and follow-up with Dr. Rodriguez, by calling and setting up the follow-up appointment today, for approximately a week out at 0926 RPT #: [id number] END OF REPORT [facility] 2022-11-04 13:52:00 [facility]) Nephrology Progress Note REPORT#:[id number] REPORT STATUS: Signed DATE:11/04/22 TIME:1352 PATIENT: DAVID BELLO HQIRRO N UNIT #: [id number] ROOM/BED: [place] [address] : 79 AGE: 42 SEX: F ATTEND: Bj Oneal MD ADM AUTHOR: Arash Rivera MD * ALL edits or amendments must be made on the electronic/computer document * Subjective HPI: 42 yo female with history of HTN, DM, previou episodes of UTI, hypothyrodism, kidney stones, pericardial effusion, s/p pericardiocenthesis, presented to ER c/ o cough. Patient fount to have renal failure, and UTI. Patient has hitory of kidney stone, s/p resection; and CKD stage 2 to 3. Renal is consulted for evaluation of renal failure. Comments: Denies sob. Review of Systems Free Text ROS Notes Free Text ROS Notes: 10 points review of systems performed and documented in subjective, otherwise negative. Objective General VS/I O: Vital Signs: Date Time Temp Pulse Resp [...] 2204 36.5 59 14 147/83 104 98 11/03 2004 98 Room air 21 11/03 1915 36.7 66 16 155/84 107.5 99 Room air 11/03 1605 36.7 59 16 148/85 105.7 98 Room air 24 hour I O ending at 0700: 11/04 0700 11/03 1900 Intake Total 850 2300.00 Output Total Balance 850 2300.00 Intake, IV 1100.00 Intake, Oral 850 1200 Number Voids 3 4 Medications Active Meds + DC'd Last 24 Hrs Ampicillin Sodium/Sulbactam Sodium (UNASYN 1.5 GM) 1.5 GM Q6H IV Sodium Chloride (0.9% Sodium Chloride) 50 ML Losartan Potassium (COZAAR) 25 MG DAILY PO Levothyroxine [...] RINGERS) 1,000 ML .Q10H IV (DC) Physical Exam General appearance: awake Head/eyes: normocephalic ENT: normal nose Neck: no JVD C-Spine clearance: no midline tenderness Cardiovascular: no murmur Respiratory: clear to auscultation Abdomen: non-tender, soft Genitourinary: no bladder distention Extremities: non-tender Musculoskeletal: full range of motion Neuro/PV DESIGN ENGINEER: normal speech Results Findings/Data: Laboratory Tests 11/04 11/04 1137 0725 Chemistry POC Glucose (70 - 110 mg/dL) 93 118 H Diagnosis, Assessment Plan Free Text A P: 1. FRANCI on CKD stage 2 to 3l. Creat 0.9 from 1.3 Outpatient creat 0.99 on 07/08/2022 2. HTN. 3. DM. 4. Complicated UTI. 5. Kidney stone. 1.8 cm caclulus in the lower pole of the right kidney, on CT scan. 6. Hypokalemia. Recommendations: 11/04: Oral hydration. Avoid NSAIDs 11/03: Taper off IV fluids once patient tolerate p.o. Avoid NSAID. 11/02: LR 100 ml/hour. Taper off IV fluids once patient tolerate p.o. Avoid NSAID. 11/01: Continue LR 75 ml/hour. AVoid NSAID. Urine studies. Drug dose adjustment GFR. Thank you for the consultation, any question please call [phone] at 1354 RPT #: [id number] END OF REPORT [facility] 2022-11-04 13:47:00 [facility] ([facility]) Hospitalist Discharge Summary REPORT#:[id number] REPORT STATUS: Signed DATE:11/04/22 TIME:1347 PATIENT: DAVID BELLO HQIRRO N UNIT #: [id number] ROOM/BED: [place] [address] : 79 AGE: 42 SEX: F ATTEND: Bj Oneal MD ADM AUTHOR: Bj Oneal MD * ALL edits or amendments must be made on the electronic/computer document * General Information Discharge date: 11/04/22 Discharge diagnosis: Complicated UTI with kidney stone Hospital course: Mrs. Bello is a 42-year-old woman who presented with right flank pain and dysuria. She was found to have a large right kidney stone of 1.[address] with perinephric stranding. She has a prior history of sepsis due to infected kidney stones in 2019. She does not know the [...] after completion of antibiotics. Med Rec Med Rec Discharge meds: Continue taking these medications: SEMAGLUTIDE (OZEMPIC PEN (4 MG/3mL)) 1 MG/0.75 ML (4 MG/3 ML) PEN.INJCTR 1 MILLIGRAM SUBCUTANEOUS EVERY 7 DAYS. LOSARTAN (COZAAR) 25 MG TAB 25 MILLIGRAM ORAL DAILY AT 1800. Qty = 30 This prescription has been renewed LEVOTHYROXINE (SYNTHROID) 125 MCG TAB 125 MICROGRAM ORAL DAILY AT 0700. Qty = 30 This prescription has been renewed Start taking the following new medications: AMOXICILLIN/CLAV K (AUGMENTIN 875/125 MG) 875 MG-125 MG TAB 875 MILLIGRAM ORAL EVERY 12 HOURS. Days = 12 Qty = 24 No Refills Objective VS/I O Last Documented: Result Date Time Pulse Ox [...] Number Voids 3 4 Free Text Obj Notes Free Text Obj Notes: General appearance: awake, no acute distress Head/Eyes: atraumatic, normal conjunctiva/sclera, normal eyelids/periorbital area, normocephalic ENT: moist mucosal membranes Neck: full range of motion Cardiovascular: normal heart sounds, regular rate rhythm Respiratory: symmetric expansion, no intercostal retraction Abdomen: soft, non-tender, no distention, no guarding Extremities: no edema, no cyanosis Musculoskeletal: normal muscle mass Neuro/PV DESIGN ENGINEER: alert, oriented X 3, normal speech, no motor deficits, no sensory deficits Skin: dry, intact, normal color, normal temperature, no rash Psychiatry: normal affect Discharge Instructions PCP PCP follow-up: PCP: Javi Cuadra MD Additional 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 at 1354 RPT #: [id number] END OF REPORT [facility] 2022-11-03 18:33:00 [facility] Hospitalist Progress Note REPORT#:[id number] REPORT STATUS: Signed DATE:11/03/22 TIME:1832 PATIENT: DAVID BELLO UNIT #: [id number] ROOM/BED: [address] : [birth year] AGE: 42 SEX: F ATTEND: Bj Oneal MD ADM AUTHOR: Bj Oneal MD * ALL edits or amendments must be made on the electronic/computer document * Subjective Chief complaint: Flank pain Free Text Subj Notes Free Text Subj Notes: Feels well today. Denies flank pain except sometimes with movement. Objective General VS/I O: Vital Signs: Date Time Temp Pulse Resp [...] 36.9 57 18 156/75 102.2 97 11/02 202 37.0 52 18 176/90 118.5 98 11/02 1918 96 Room air 21 24 hour I O ending at 0700: 11/03 0700 11/02 1900 Intake Total 240 500 Output Total Balance 240 500 Intake, Oral 240 500 Number Voids 3 1 PATIENT WEIGHT: Weight (lb): Weight (oz): Weight (kg): 98.636 Free Text Obj Notes Free Text Obj Notes: General appearance: awake, no acute distress Head/Eyes: atraumatic, normal conjunctiva/sclera, normal eyelids/periorbital area, normocephalic ENT: moist mucosal membranes Neck: full range of motion Cardiovascular: normal heart sounds, regular rate rhythm Respiratory: symmetric expansion, no intercostal retraction Abdomen: soft, non-tender, no distention, no guarding Extremities: no edema, no cyanosis Musculoskeletal: normal muscle mass Neuro/PV DESIGN ENGINEER: alert, oriented X 3, normal speech, no motor deficits, no sensory deficits Skin: dry, intact, normal color, normal temperature, no rash Psychiatry: normal affect Diagnosis, Assessment Plan Free Text DxA P Notes Free text DxA P notes: 1. Complicated ESBL urinary tract infection with 1.8 cm right renal stone No evidence of obstruction or sepsis. Creatinine 1.3 on admission and improved with fluids. No gross hematuria. Received ceftriaxone but urine culture grew ESBL E. coli so switched to Unasyn Discussed with Urology. Conservative management for now and will plan for outpatient procedure to remove stone after antibiotic course is completed. Plan for IV Unasyn for 1 day per sensitivities and will discharge home tomorrow with prolonged course of Augmentin if tolerates 2. Acute kidney injury - resolved No evidence of obstruction on CT Follows with Dr. Chicas in clinic so consulted him 3. History of Graves' disease status post thyroidectomy 2020 Patient is not sure of her levothyroxine dose and has not been able to swallow her tablets due to nausea TSH elevated this admission Received IV levothyroxine then switched to home po 125 mcg Has follow-up with endocrinology 4. History of diabetes mellitus Patient is unsure of her home medications but will verify A1c 6.5 SSI Quality: Gen Med Crit Care VTE Prophylaxis VTE prophylaxis initiated: yes Current Medications Current medication review: I attest that the foregoing medication list in the medical record is true, accurate, and complete to the best of my knowledge. Advanced Care Plan 65 or Older Discussed with: patient at 1838 RPT #: [id number] END OF REPORT [facility] 2022-11-03 16:35:00 [facility] ([facility]) Urology Progress Note REPORT#:[id number] REPORT STATUS: Signed DATE:11/03/22 TIME:1635 PATIENT: DAVID BELLO UNIT #: [id number] ROOM/BED: [facility] : 79 AGE: 42 SEX: F ATTEND: Bj Oneal MD ADM AUTHOR: Brett Rodriguez MD * ALL edits or amendments must be made on the electronic/computer document * Subjective Chief complaint: complicated uti renal stone Comments: no acute events flank pain improving denies dysuria Objective General VS/I O: Last Documented: Result Date Time Pulse Ox [...] (lb): Weight (oz): Weight (kg): 98.636 Physical Exam General appearance: alert, awake, oriented Respiratory: aerating well, symmetric expansion Abdomen: soft, no guarding, no rebound, no distention Diagnosis, Assessment Plan Hospital course to date: A: complicated uti renal calculi, large on right P: culture noted, esbl ecoli continue abx will need clinic follow up to arrange treatment of stone after clearance of infection at 1636 RPT #: [id number] END OF REPORT [facility] 2022-11-03 14:42:00 [facility] ([facility] Nephrology Progress Note REPORT#:[id number] REPORT STATUS: Signed DATE:11/03/22 TIME:1442 PATIENT: DAVID BELLO UNIT #: [id number] ROOM/BED: [facility] : 79 AGE: 42 SEX: F ATTEND: Bj Oneal MD ADM AUTHOR: rAash Rivera MD * ALL edits or amendments must be made on the electronic/computer document * Subjective HPI: 42 yo female with history of HTN, DM, previou episodes of UTI, hypothyrodism, kidney stones, pericardial effusion, s/p pericardiocenthesis, presented to ER c/ o cough. Patient fount to have renal failure, and UTI. Patient has hitory of kidney stone, s/p resection; and CKD stage 2 to 3. Renal is consulted for evaluation of renal failure. Comments: Denies shortness of breath, chest pain Review of Systems Free Text ROS Notes Free Text ROS Notes: 10 points review of systems performed and documented in subjective, otherwise negative. Objective General VS/I O: Vital Signs: Date Time Temp Pulse Resp B/P B/P Pulse O2 O2 Flow FiO2 Mean Ox Delivery Rate 11/03 1258 96 Room air 11/03 1142 [...] Oral 240 500 Number Voids 3 1 Medications Active Meds + DC'd Last 24 Hrs Ampicillin Sodium/Sulbactam Sodium (UNASYN 1.5 GM) 1.5 GM Q6H IV Sodium Chloride (0.9% Sodium Chloride) 50 ML Losartan Potassium (COZAAR) 25 MG DAILY PO Ampicillin Sodium/Sulbactam Sodium (UNASYN 1.5 GM) 1.5 GM Q6HR IV (DC) Sodium Chloride (0.9% Sodium Chloride) 50 ML Levothyroxine Sodium (SYNTHROID) 125 MCG DAILY@0600 PO Hydralazine HCl (APRESOLINE) 5 MG Q6H PRN PRN IV Ceftriaxone Sodium (ROCEPHIN) 2,000 MG Q24H IV (DC) Sterile Water (WATER FOR INJECTION) 20 ML Dextrose/Water (DEXTROSE 10% IN WATER 250 ML) [...] (HUMALOG) 0 AC HS SUBQ (DC) Physical Exam General appearance: awake Head/eyes: normocephalic ENT: normal nose Neck: no JVD C-Spine clearance: no midline tenderness Cardiovascular: no murmur Respiratory: clear to auscultation Abdomen: non-tender, soft Genitourinary: no bladder distention Extremities: non-tender Musculoskeletal: full range of motion Neuro/PV DESIGN ENGINEER: normal speech Results Findings/Data: Laboratory Tests 11/03 11/02 0459 1606 Chemistry Sodium [...] - 10.1 MG/DL) 8.1 L Diagnosis, Assessment Plan Free Text A P: 1. FRANCI on CKD stage 2 to 3l. Creat 0.9 from 1.3 Outpatient creat 0.99 on 07/08/2022 2. HTN. 3. DM. 4. Complicated UTI. 5. Kidney stone. 1.8 cm caclulus in the lower pole of the right kidney, on CT scan. 6. Hypokalemia. Recommendations: 80/12: Taper off IV fluids once patient tolerate p.o. Avoid NSAID. 11/02: LR 100 ml/hour. Taper off IV fluids once patient tolerate p.o. Avoid NSAID. 11/01: Continue LR 75 ml/hour. AVoid NSAID. Urine studies. Drug dose adjustment GFR. Thank you for the consultation, any question please call [phone] at [phone] RPT #: [id number] END OF REPORT [facility] 2022-11-02 22:45:00 [facility] ([facility]) Hospitalist Progress Note REPORT#:[id number] REPORT STATUS: Signed DATE:11/02/22 TIME:2244 PATIENT: DAVID BELLO HQMOJGANO David UNIT #: [id number] ROOM/BED: [address] : [birth year] AGE: 42 SEX: F ATTEND: Bj Oneal MD ADM AUTHOR: Bj Oneal MD * ALL edits or amendments must be made on the electronic/computer document * Subjective Chief complaint: Flank pain Free Text Subj Notes Free Text Subj Notes: Says her R flank pain is much better. Fatigue is slowly improving. Tolerating oral intake. Evaluated by Urology. Objective General VS/I O: Vital Signs: Date Time Temp Pulse Resp [...] (oz): Weight (kg): 98.636 Free Text Obj Notes Free Text Obj Notes: General appearance: awake, no acute distress Head/Eyes: atraumatic, normal conjunctiva/sclera, normal eyelids/periorbital area, normocephalic ENT: moist mucosal membranes Neck: full range of motion Cardiovascular: normal heart sounds, regular rate rhythm Respiratory: symmetric expansion, no intercostal retraction Abdomen: soft, non-tender, no distention, no guarding Extremities: no edema, no cyanosis Musculoskeletal: normal muscle mass Neuro/PV DESIGN ENGINEER: alert, oriented X 3, normal speech, no motor deficits, no sensory deficits Skin: dry, intact, normal color, normal temperature, no rash Psychiatry: normal affect Diagnosis, Assessment Plan Free Text DxA P Notes Free text DxA P notes: 1. Complicated urinary tract infection with 1.8 cm right renal stone No evidence of obstruction or sepsis. Creatinine 1.3 on admission. No gross hematuria. IV ceftriaxone day 2 Follow-up urine culture On IV fluids Discussed with Urology. Conservative management for now and will plan for outpatient procedure to remove stone after antibiotic course is completed. 2. Acute kidney injury - resolved No evidence of obstruction on CT Follows with Dr. Chicas in clinic so consulted him 3. History of Graves' disease status post thyroidectomy 2020 Patient is not sure of her levothyroxine dose and has not been able to swallow her tablets due to nausea TSH elevated this admission Received IV levothyroxine then switched to home po 125 mcg Has follow-up with endocrinology 4. History of diabetes mellitus Patient is unsure of her home medications but will verify A1c 6.5 SSI Quality: Gen Med Crit Care VTE Prophylaxis VTE prophylaxis initiated: yes Current Medications Current medication review: I attest that the foregoing medication list in the medical record is true, accurate, and complete to the best of my knowledge. Advanced Care Plan 65 or Older Discussed with: patient at 2248 RPT #: [id number] END OF REPORT [facility] 2022-11-02 15:39:00 [id number] [facility] [id number] [place] [id number] PATIENT NAME: MIRELLA BELLOLuisaGAVIN HQIRRO N ADMIT DATE: 11/01/22 ACCOUNT NO: [id number] ROOM NO: L.S204 AGE: 42 REPORT TYPE: CONSULTATION SEX: F [...] undergoing urologic procedure several years ago in [place] and does not have an established urologist [...] negative 10-point review of systems. PAST MEDICAL HISTORY: 1. Diabetes. 2. Hypertension. 3. Chronic renal insufficiency. PAST SURGICAL HISTORY: Kidney stones procedures. SOCIAL HISTORY: Negative x3. FAMILY HISTORY: Reviewed and noncontributory. PHYSICAL EXAMINATION: VITAL SIGNS: T-max of 98.2, pulse 54, and blood pressure 148/75. GENERAL: The patient not in acute distress, alert and oriented. HEENT: Atraumatic, normocephalic. EOMI. NECK: Supple. Trachea is midline. LUNGS: Normal respiratory effort, nonlabored breathing. ABDOMEN: Soft. No rebound or guarding. No CVA tenderness. PATIENT NAME: DAVID BELLO HQIRRO N EXTREMITIES: No clubbing, cyanosis or edema. PERTINENT LABORATORY DATA: White count 5, hemoglobin count of 12.4. Creatinine of 0.9 with BUN of 10. Her urinalysis [...] me in the office after antibiotic therapy to arrange for followup procedure to address her stone. The stone may be the underlying etiology for recurrent infections. Dictated By: Brett Rodriguez MD Date Dictated: 11/02/2022 15:39:24 Date Transcribed: 11/02/2022 16:22:00 [facility] Receipt ID: [id number] Authenticated by Brett Rodriguez MD On 11/05/2022 11:29:13 PM at 1129 PATIENT NAME: DAVID BELLO HQLONNIE Hernandez [facility] 2022-11-02 12:26:00 [facility] ([facility] Nephrology Progress Note REPORT#:[id number] REPORT STATUS: Signed DATE:11/02/22 TIME:1226 PATIENT: DAVID BELLO HQLONNIE Hernandez UNIT #: [id number] ROOM/BED: [place] [address] : 79 AGE: 42 SEX: F ATTEND: Bj Oneal MD ADM AUTHOR: Arash Rivera MD * ALL edits or amendments must be made on the electronic/computer document * Subjective HPI: 42 yo female with history of HTN, DM, previou episodes of UTI, hypothyrodism, kidney stones, pericardial effusion, s/p pericardiocenthesis, presented to ER c/ o cough. Patient fount to have renal failure, and UTI. Patient has hitory of kidney stone, s/p resection; and CKD stage 2 to 3. Renal is consulted for evaluation of renal failure. Comments: Denies shortness of breath, chest pain. Review of Systems Free Text ROS Notes Free Text ROS Notes: 10 points review of systems performed and documented in subjective, otherwise negative. Objective General VS/I O: Vital Signs: Date Time Temp Pulse Resp B/P B/P Pulse O2 O2 Flow FiO2 Mean Ox Delivery Rate 11/02 1125 36.8 54 15 148/75 0.0 89 Room air 11/02 0727 97 Room air 21 11/02 0709 36.6 53 15 148/83 104.3 98 Room air 11/02 0407 36.5 52 18 153/81 105.3 97 11/01 2341 37.0 52 18 150/79 102.3 98 11/01 2059 98 Room air 21 11/01 2000 36.7 58 16 151/91 110.9 99 11/01 1948 71 16 180/86 117 99 Room air 11/01 1430 50 17 183/82 115 97 Room air 11/01 1300 54 18 183/84 117 99 Room air 24 hour I O ending at 0700: 11/02 0700 11/01 1900 Intake Total Output Total Balance Number Voids 3 Patient 98.636 kg Weight Weight Stated/Reported Measurement Method Medications Active Meds + DC'd Last 24 Hrs Ceftriaxone Sodium (ROCEPHIN) 2,000 MG Q24H IV Sterile Water (WATER FOR INJECTION) 20 ML Dextrose/Water (DEXTROSE 10% IN WATER 250 ML) [...] Sodium Chloride (0.9% Sodium Chloride) 1,000 ML .[id number] IV (DC) Ceftriaxone Sodium (ROCEPHIN) 1,000 MG X1ED STA IV (DC) Sterile Water (WATER FOR INJECTION) 10 ML Sodium Chloride (0.9% Sodium Chloride) 50 ML .STK-MED ONE IV (DC) Iopamidol (ISOVUE-300) 0 .STK-MED ONE .ROUTE (DC) Physical Exam General appearance: awake Head/eyes: normocephalic ENT: normal nose Neck: no JVD C-Spine clearance: no midline tenderness Cardiovascular: no murmur Respiratory: clear to auscultation Abdomen: non-tender, soft Genitourinary: no bladder distention Extremities: non-tender Musculoskeletal: full range of motion Neuro/PV DESIGN ENGINEER: normal speech Results Findings/Data: Laboratory Tests 11/02 11/02 11/02 1127 0708 0428 Chemistry POC Glucose (70 - 110 mg/dL) 139 H 98 Hemoglobin A1c (0.0 - 5.7 % A1C) 6.5 H Estim Average Glucose (MG/DLest) 140 11/02 11/01 0428 2023 Chemistry Sodium (134 - 147 mmol/L) 137 [...] - 7.0 pH UNITS) 5.5 Ur Specific Hurley (1.005 - 1.030 SG) 1.015 Urine Protein [...] Screen (Culture CHK Criteria) YES,WBC>10 EPI<25 Radiology data: Recent Impressions: CAT SCAN - CT ABD PELVIS W/CONT 11/01 [...] left pleural effusion. No infiltrates. Location: U19 Impression By: Paola Ramos M.D. CAT SCAN - CT CHEST W/CONTRAST 11/01 1501 [...] left pleural effusion. No infiltrates. Location: U19 Impression By: Paola Ramos M.D. CAT SCAN - CT HEAD/BRAIN W/O CONT 11/01 1501 Report Impression - Status: SIGNED Entered: 11/01/2022 1518 IMPRESSION: 1. No acute finding identified. 2. Otherwise unremarkable head CT. Impression By: Curtis Mcneill M.D. Diagnosis, Assessment Plan Free Text A P: 1. FRANCI on CKD stage 2 to 3l. Creat 0.9 from 1.3 Outpatient creat 0.99 on 07/08/2022 2. HTN. 3. DM. 4. Complicated UTI. 5. Kidney stone. 1.8 cm caclulus in the lower pole of the right kidney, on CT scan. Recommendations: 11/02: LR 100 ml/hour. Taper off IV fluids once patient tolerate p.o. Avoid NSAID. 11/01: Continue LR 75 ml/hour. AVoid NSAID. Urine studies. Drug dose adjustment GFR. Thank you for the consultation, any question please call [phone] at [phone] RPT #: [id number] END OF REPORT [facility] 2022-11-01 21:39:00 [facility] ([facility]) Hospitalist History Physical REPORT#:[id number] REPORT STATUS: Signed DATE:11/01/22 TIME:2138 PATIENT: DAVID BELLO HQIRRO N UNIT #: [id number] ROOM/BED: [address] : [address] AGE: 42 SEX: F ATTEND: Bj Oneal MD ADM AUTHOR: Bj Oneal MD * ALL edits or amendments must be made on the electronic/computer document * History of Present Illness HPI Chief complaint: Flank pain PCP: PCP: Javi Cuadra MD HPI: Mrs. Bello is a 42-year-old -O[place]i woman who presents with flank pain and fatigue. Started feeling ill about 4 days ago with nausea, diaphoresis , sharp right-sided flank pain, and generalized weakness. [...] She was diagnosed with a UTI 3 months ago and completed a course of cephalexin (urine culture at that time grew E. coli). History Past medical history: Reports: Diabetes mellitus, Hypertension, Kidney disease/stones. Past surgical history: Reports: Thyroidectomy. Additional surgical history: reviewed. Kidney stone resetion. Additional family history: Mother with kidney stones Alcohol use: Denies EtOH use Drug use: Denies recreational drugs Smoking status for patients 13 years old or older: Unknown,if ever smoked Medication/Allergy-Vaccine Hx Allergies: Coded Allergies: sumatriptan (From IMITREX) (ITCHY 08/30/21) Objective Free Text Obj Notes Free Text Obj Notes: General appearance: awake, no acute distress Head/Eyes: atraumatic, normal conjunctiva/sclera, normal eyelids/periorbital area, normocephalic ENT: moist mucosal membranes Neck: full range of motion Cardiovascular: normal heart sounds, regular rate rhythm Respiratory: symmetric expansion, no intercostal retraction Abdomen: soft, non-tender, no distention, no guarding Extremities: no edema, no cyanosis Musculoskeletal: normal muscle mass Neuro/PV DESIGN ENGINEER: alert, oriented X 3, normal speech, no motor deficits, no sensory deficits Skin: dry, intact, normal color, normal temperature, no rash Psychiatry: normal affect Diagnosis, Assessment Plan Code Status/Resusc. Discussion Resuscitation discussion: Discussed with: patient Code status: full code Free Text DxA P Notes Free Text DxA P Notes: 1. Complicated urinary tract infection with 1.8 cm right renal stone No evidence of obstruction or sepsis. Creatinine 1.3 on admission. No gross hematuria. IV ceftriaxone day 1 Follow-up urine culture Start IV fluids Discussed with urology Dr. Wetzel 2. Acute kidney injury No evidence of obstruction on CT Monitor BMP on IV fluids Follows with Dr. Chicas in clinic so will consult him 3. History of Graves' disease status post thyroidectomy 2020 Patient is not sure of her levothyroxine dose and has not been able to swallow her tablets due to nausea TSH elevated this admission Start IV levothyroxine and follow-up on home dose Has follow-up with endocrinology 4. History of diabetes mellitus Patient is unsure of her home medications but will verify Check A1c SSI Quality: Gen [facility] Crit Care VTE Prophylaxis VTE prophylaxis initiated: yes Current Medications Current medication review: I attest that the foregoing medication list in the medical record is true, accurate, and complete to the best of my knowledge. Advanced Care Plan 65 or Older Discussed with: patient at 2152 RPT #: [id number] END OF REPORT [facility] 2022-11-01 20:46:00 [facility] ([facility]) Nephrology Consultation Note REPORT#:[id number] REPORT STATUS: Signed DATE:11/01/22 TIME:2045 PATIENT: DAVID BELLO UNIT #: [id number] ROOM/BED: [address] : [address] AGE: 42 SEX: F ATTEND: Bj Oneal MD ADM AUTHOR: Arash Rivera MD * ALL edits or amendments must be made on the electronic/computer document * History of Present Illness Reason for consult: ckd HPI: 42 yo female with history of HTN, DM, previou episodes of UTI, hypothyrodism, kidney stones, pericardial effusion, s/p pericardiocenthesis, presented to ER c/ o cough. Patient fount to have renal failure, and UTI. Patient has hitory of kidney stone, s/p resection; and CKD stage 2 to 3. Renal is consulted for evaluation of renal failure. History - Adult longitudinal Past medical history: Reports: Diabetes mellitus, Hypertension, Kidney disease/stones. Additional surgical history: reviewed. Kidney stone resetion. Additional family history: noncontributory. Smoking status for patients 13 years old or older: Unknown,if ever smoked Medications: Home Medications: Medication Dose/Rte/Freq Days Qty Entered Last Max Daily Dose Reviewed CEPHALEXIN (KEFLEX) 500 MG PO Q12HR 20 08/31/21 Strength: 500 MG CAP 0124 KETOROLAC (TORADOL) 10 MG PO 20 08/31/21 Strength: 10 MG TAB Q6H PRN PRN PAIN 0124 Current Hospital Medications: Anti-Infective Agents Sig/Mona Start time Last Medication Dose Route Stop Time Status Admin Ceftriaxone Sodium 1,000 MG X1ED STA 11/01 1633 AC 08/ (ROCEPHIN) IV 11/02 0232 1653 Sterile Water [...] Time Status Admin Sodium Chloride 1,000 ML .[id number] 11/01 1730 AC (0.9% Sodium IV 11/02 [...] 11/01 2100 AC (HUMALOG) SUBQ 11/02 1616 Allergies: Coded Allergies: sumatriptan (From IMITREX) (ITCHY 08/30/21) Diagnosis, Assessment Plan Free Text DxA P Notes Free Text DxA P Notes: 1. FRANCI on CKD stage 2 to 3l. Creat 1.3 Outpatient creat 0.99 on 07/08/2022 2. HTN. 3. DM. 4. Complicated UTI. 5. Kidney stone. 1.8 cm caclulus in the lower pole of the right kidney, on CT scan. Recommendations: Continue LR 75 ml/hour. AVoid NSAID. Urine studies. Drug dose adjustment GFR. Thank you for the consultation, any question please call [phone] at [phone] [facility] #: [id number] END OF REPORT [facility] 2022-11-01 10:02:00 [facility] ([facility]) EMERGENCY PROVIDER REPORT REPORT#:[id number] REPORT STATUS: Signed DATE:11/01/22 TIME:1002 PATIENT: DAVID BELLO HQLONNIE Hernandez UNIT #: [id number] ROOM/BED: [address] : [address] AGE: 42 SEX: F PCP PHYS: Javi Cuadra MD SERVICE AUTHOR: Teddy Fernandez MD * ALL edits or amendments must be made on the electronic/computer document * HPI-URI/Cough/Cold General Initial Greet Date/Time 11/01/22 0853 Presentation Chief Complaint Cough, non-productive Free Text HPI Notes Free Text HPI Notes Patient 42-year-old female present with chief concern of [...] some sort saying that she is seeing objects and seeing things. Patient is conversive. Patient denying any other acute symptoms at this time. Patient with no other acute symptoms at this time. Patient with no other acute symptoms. Review of Systems Free Text ROS Notes Free Text ROS Notes 1.Constitutional: No fever, No chills, No weight loss, No fatigue 2. Head: No trauma, or No Headache 3. Eyes: No eye pain, No eye redness 4. Ears, nose, mouth, throat: no sore throat, no ear pain, no tooth pain, no nasal congestion 5. Cardiovascular: no chest pain or discomfort, no palpitations 6. Respiratory: no [id number]-ik-mbyftm, no cough 7. GI: No nausea, no vomiting, no diarrhea, no constipation, no abdominal pain 8 .: Denies dysuria, No hematuria, denies flank pain, denies reproductive organ pain/discomfort 8. Musculoskeletal: no muscle pain, no swelling 9. Skin: No rash, no itching 10. Neurologic: No weakness or numbness. 11.Back: No Back Pain, No back trauma 12. Psychiatric: No suicidal ideation, No homicidal Ideation, no hallucinations Past Medical History - Adult Stated Complaint VOMITING, PAIN WITH URINATION,WEAK Allergies Coded Allergies: sumatriptan (From IMITREX) (ITCHY 08/30/21) Home Medications Discontinued Scripts CEPHALEXIN (KEFLEX) 500 MG PO Q12HR CEPHALEXIN (KEFLEX) 500 MG PO Q12HR #20 CAPS Prov: 08/31/21 DC: 11/01/22 2141 Change of medication KETOROLAC (TORADOL) 10 MG PO Q6H PRN PRN PAIN KETOROLAC (TORADOL) 10 MG PO Q6H PRN PRN PAIN #20 TABS Prov: 08/31/21 DC: 11/01/22 214 Change of medication Reported Medications SEMAGLUTIDE (OZEMPIC PEN (4 MG/3mL)) 1 MG SUBQ Q7D LOSARTAN (COZAAR) 25 MG PO DAILY 1800 LEVOTHYROXINE (SYNTHROID) 125 MCG PO DAILY 0700 Calculated Suicide Risk (nurs) No risk Pt reports no significant: Past medical history, Past surgical history, Family history Smoking status for patients 13 years old or older: Unknown,if ever smoked Physical Exam Vital Signs Vital Signs First Documented: Result Date Time Pulse Ox 100 08/ 0910 B/P 148/82 08/ 0910 B/P Mean 104 / 0910 O2 Delivery Room air / 0910 Temp 36.7 08/10 0910 Pulse 66 08/ 0910 Resp 19 11/01 0910 Last Documented: Result Date Time Pulse Ox 97 08/10 1430 B/P 183/82 08/ 1430 B/P Mean 115 08/10 1430 O2 Delivery Room air 08/ 1430 Pulse 50 08/ 1430 Resp 17 08/ 1430 Temp 36.7 08/ 0910 Review of Vital Signs Reviewed Free Text PE Notes Free Text PE Notes General Appearance: Alert, Oriented, Resting Comfortably, No Apparent Distress Eyes: Normal Inspection, PERRL, EOMI Head Ears Nose and Throat: Normocephalic, Atraumatic, Normal ENT inspection Neck: Supple, Normal Inspection Lymphatic: No lymphadenopathy Respiratory: Lungs Clear to auscultation bilaterally Cardiovascular: Regular Rate, Regular Rhythm, No Murmur, No Rubs Peripheral Pulses: DP/PT pulses normal bilaterally Normal: Left Carotid, Lower Extremities, Right Carotid Abdomen: Soft, Non-Tender, Non-Distended, Normal Bowel Sounds, No Organomegaly, No Guarding Extremities: No Clubbing, No Cyanosis, No Edema Psych/Mental Status: Normal Affect Neurologic: Alert, Oriented to Person, Oriented to Place, Oriented to Time, Cranial Nerves II - XII Intact, Follows commands Motor/Sensory: No Motor Deficit, No Sensory Deficit Skin: Warm/Dry, Normal Color, No Rashes Interpretation Diagnostics Lab Results Interpretation Considerations Independ review imaging Results Laboratory Tests 11/01/22 0943: [Embedded Image Not Available] Laboratory Tests: 11/01 11/01 1601 0943 Chemistry Magnesium (1.8 - 2.4 MG/DL) 2.3 TSH (0.340 - 4.820 mcIU/ML) 14.900 H Urines Urine Color (YEL/STRAW discript) STRAW Urine Appearance (CLEAR discript) CLOUDY H Urine pH (5.0 - 7.0 pH UNITS) 5.5 Ur Specific Hurley (1.005 - 1.030 SG) 1.015 Urine Protein [...] Date/Time Procedure - Status Source Growth 11/01 0427 MRSA Screen - COMP NASAL Recent Impressions: RADIOLOGY - XR CHEST 1 V 11/01 0922 Report Impression - Status: SIGNED Entered: 11/01/2022 0952 IMPRESSION: No acute radiographic abnormality Impression By: [email or web address] - Laverne Lee M.D. CAT SCAN - CT ABD PELVIS W/CONT 11/01 [...] left pleural effusion. No infiltrates. Location: U19 Impression By: [email or web address] - Shaq [place], M.D. CAT SCAN - CT CHEST W/CONTRAST 11/01 150 Report Impression - Status: SIGNED [...] left pleural effusion. No infiltrates. Location: U19 Impression By: [email or web address] - Shaq Ramos M.D. CAT SCAN - CT HEAD/BRAIN W/O CONT 11/01 1501 Report Impression - Status: SIGNED Entered: 11/01/2022 1518 IMPRESSION: 1. No acute finding identified. 2. Otherwise unremarkable head CT. Impression By: [email or web address] - Donavan Mcneill M.D. Lab Imaging Statement Laboratory radiographic studies reviewed and considered in the medical decision-making. ECG #1 Interpretation Text/Dict Note EKG INTERPRETATION Rhythm: Normal sinus rhythm Ventricular Rate: 67 BPM UT: 144 ms QRS: 80 ms QTC: 439 ms [place]: Normal ST elevation: None ST depression: None T wave inversion(s): None Date 11/01/22 Time 09 Interpreted by and reviewed by me, Independently interpreted, ED physician Re-Evaluation MDM Free Text MDM Notes Free Text MDM Notes Patient 39-year-old female present with chief concern of [...] signs of infection. Re-Evaluation/Progress URI/Flu Adult MDM Note The patient is now resting comfortably, is alert and in no distress. The patient has a normal mental status and is neurologically intact. The patient appears well and is able to tolerate food or fluid by mouth, and there is no significant dehydration. There is no respiratory distress and no signs of systemic toxicity. The history, exam, diagnostic testing (if any) and [...] as indicated in the discharge instructions. ED Course Medication(s) Ordered Medication(s) Ordered: Hormones And Synthetic Substit Sig/Mona Start time Last Medication Dose Route Stop Time Status Admin Insulin Human Lispro 0 AC HS 11/01 2100 DC SUBQ 11/02 1616 Differential Diagnosis Differential Diagnosis Allergic reaction, Allergic rhinitis, Asthma exacerbation , Bronchitis, Cough variant asthma, Influenza, Laryngitis, Otitis media R, Otitis media L, Pertussis, Pharyngitis, diphtheria, Pharyngitis, streptococca, Pharyngitis, viral, Pneumonia, Pneumonia, bacterial, Pneumonia, community acq, Rhinitis, allergic, Rhinitis, nonallergic, Seasonal allergy, Sinusitis, Upper resp infection, Viral syndrome MDM-Complexity Differential Diagnosis As above MDM-Independent Interpretation My Plain Film Interpretation CT head unremarkable CT abdomen and pelvis with contrast with intrarenal stone CT chest with contrast unremarkable My Other Test Interpretation Troponin unremarkable creatinine elevated to 1.3 with GFR 52 Patient Discharge Departure Vital Signs/Condition Vital Signs First Documented: Result Date Time Pulse Ox 100 08/10 0910 B/P 148/82 08/10 0910 B/P Mean 104 /10 0910 O2 Delivery Room air / 0910 Temp 36.7 08/10 0910 Pulse 66 08/10 0910 Resp 19 / 0910 Last Documented: Result Date Time Pulse Ox 97 08/10 1430 B/P 183/82 08/10 1430 B/P Mean 115 08/10 1430 O2 Delivery Room air / 1430 Pulse 50 08/10 1430 Resp 17 / 1430 Temp 36.7 / 0910 All vital signs available at the time of this entry have been reviewed. Condition Stable, Improved Clinical Impression Clinical Impression Primary Impression: Pyelonephritis Secondary Impressions: FRANCI (acute kidney injury), Hypertension, Nephrolithiasis Time of Impression 172 Disposition Decision Hospitalize Hosp Physician Name AloBj randle [facility] Physician Hospitalist Request Time 172 Request Date 11/01/22 )( Accepts Hospitalization Yes )( Reason for Hospitalization UTI )( Accepted Time 172 )( Accepted Date 11/01/22 Call Information will see patient Discharge/Care Plan Counseled Regarding Diagnosis, Lab results, Imaging studies, Medication changes, Prescriptions, Need for admission Admit Note I have spoken with the patient and/or caregivers. I have explained the patient's condition, diagnoses and treatment plan based on the information available to me at this time. I have answered the patient's and/or caregiver's questions and addressed any concerns. The patient and/or caregivers have as good an understanding of the patient's diagnosis, condition and treatment plan as can be expected at this point. The patient has been stabilized within the capability of the emergency department. The patient will be transported for further care and management or will be moved to an observation or inpatient service. I have communicated with the staff or medical practitioner taking over this patient's care. at 0810 RPT #: [id number] END OF REPORT [facility] 2021-10-02 11:30:00 [id number] [place] [address] PATIENT NAME: KAMRAN BELLO ADMIT DATE: 09/28/21 ACCOUNT NO: [id number] ROOM NO: P.0590 AGE: 41 REPORT TYPE: OPERATIVE REPORT SEX: F ADMITTING PHYSICIAN:Ron Tipton MD ATTENDING PHYSICIAN:Ron Tipton MD OPERATION DATE: 09/29/2021 PROCEDURES: Ultrasound-guided pericardiocentesis. PREPROCEDURE DIAGNOSIS: Pericardial effusion. POSTPROCEDURE DIAGNOSIS: Pericardial effusion. INTERNAL COMMUNICATIONS SPECIALIST: Jasper Hurst MD CAMPBELL: Mckenna Trevino MD SEATING AND MOBILITY TECHNOLOGIST: N/A ANESTHESIA: Moderate sedation. COMPLICATIONS: None. PROCEDURE IN DETAIL: The patient was brought to the [facility] cardiac catheterization laboratory in the fasting state. The patient was identified and timeout was performed. Moderate sedation was carried out by trained independent personnel under my supervision for a total period of 22 minutes. The patient's precordium was imaged before the procedure using standard cardiac ultrasound probe. The region of pericardial effusion was identified as was the shortest and safest path for a pericardiocentesis. The patient was then prepped and draped in a sterile fashion. Under ultrasound guidance, Dr. Hurst placed a micropuncture needle into the lateral aspect of the pericardial space. Clear straw-colored fluid was obtained. A micropuncture catheter was advanced and a pericardial positioning was confirmed with contrast injection under ultrasound guidance. A pericardial drainage catheter was then placed and 1 liter of straw-colored fluid was withdrawn. The fluid was sent for cell count, culture, stains and cytology. The catheter was then removed. There were no complications as results of the procedure. FINDINGS: One liter pericardial effusion, status post withdrawal without complication. Dictated By: Mckenna Trevino MD WT: OP:GEOVANNA/ PATIENT NAME: KAMRAN BELLO Conf#: [id number]/DID#: [id number] Authenticated and Edited by Mckenna Trevino MD On 10/02/21 1:05:08 PM at 0107 PATIENT NAME: KAMRAN BELLO [facility] 2021-09-29 16:27:00 [facility] ([facility]) Non-Operative Procedure Note REPORT #: [id number] REPORT STATUS: Signed DATE: 09/29/21 TIME: 1626 PATIENT: KAMRAN BELLO UNIT #: [id number] ROOM #: P.0590 BED: A : 79 AGE: 41 SEX: F ATTEND: Ron Tipton MD ADM AUTHOR: Mckenna Trevino MD ATTENTION *EDITS and/or ADDENDA must be made in Patient Keeper for this note. * * Edits and ammendments created in [employer] [facility] are not visible * * in Patient Keeper or the legal medical record ([facility]). * -- PROCEDURE -- PRE-PROCEDURE DIAGNOSIS: Per effusion POST-PROCEDURE DIAGNOSIS: same NAME OF PROCEDURE: pericardiocentesis PERFORMED BY: MCKENNA TREVINO MD ANESTHESIA/ANALGESIA: moder -CONSCIOUS SEDATION:- CONSCIOUS SEDATION (PROVIDED BY [place]) - INDEPENDENT TRAINED OBSERVER PRESENT: I supervised and directed independent trained observers who assisted in administering medicine for moderate sedation, and monitoring the patient #39;s level of consciousness as well as physiological status throughout the procedure. Duration 40 minutes. FINDINGS: 1L straw colored fluid removed and sent for study without complication Signed in PatientKeeper by MCKENNA TREVINO MD on 09/29/21 at 16:29 at 1629 ATTENTION *EDITS and/or ADDENDA must be made in Patient Keeper for this note. * * Edits and ammendments created in [employer] are not visible * * in Patient Keeper or the legal medical record ([facility]). * [facility] #: [id number] END OF REPORT [facility] 2021-09-29 16:25:00 [facility] ([facility]) Cardiology H P REPORT #: [id number] REPORT STATUS: Signed DATE: 09/29/21 TIME: 1625 PATIENT: KAMRAN BELLO UNIT #: [id number] ROOM #: [facility] BED: A : 79 AGE: 41 SEX: F ATTEND: Ron Tipton MD ADM AUTHOR: Mckenna Trevino MD ATTENTION *EDITS and/or ADDENDA must be made in Patient Keeper for this note. * * Edits and ammendments created in [employer] are not visible * * in Patient Keeper or the legal medical record (HPF). * -- HISTORY -- ADMISSION DATE: 2021-09-28 PRIMARY CARE PROVIDER: Provider, Concepción -- ALLERGIES/HOME MEDS -- ALLERGIES: sumatriptan (Intermediate - Allergy) HOME MEDICATIONS: Levothyroxine Tab (Synthroid Tab) 125 MCG PO DAILY OZEMPIC 0.25 MG SubQ Q SATURDAY -- OBJECTIVE -- VITALS (09/28 16:26 - 09/29 16:26): Temperature F: 98.1 (98.0 - 98.1) Temperature C: 36.7 Temperature source: Oral Pulse Rate 65 (54 - 65) Respiratory rate: 20 (13 - 20) BP: 156/93 (144/82 - 169/100) Blood pressure source: Monitor I/Os (09/28 07:00 - 09/29 07:00): Net -400 Output 400 -- DATA -- LABS UR HCG QL (09/29/21 13:01) UR HCG QUAL NEGATIVE TROPI (09/29/21 06:07) TROPONIN-I < 2.5 L TROPI (09/29/21 03:19) TROPONIN-I < 2.5 L MAG (09/29/21 03:19) MAGNESIUM 2.1 COMPREHENSIVE METABOLIC PANEL (09/29/21 03:19) SODIUM 139 POTASSIUM 3.4 L CHLORIDE 104 CARBON DIOXIDE 30 GLUCOSE 96 BLOOD UREA NITROGEN 9 GLOMERULAR FILTRATION RATE >=60 max estimate CREATININE 1.10 H TOTAL PROTEIN 7.5 ALBUMIN 4.1 CALCIUM 7.7 L BILIRUBIN TOTAL 0.5 SGOT/AST 14 SGPT/ALT < 7 L ALKALINE PHOSPHATASE 81 CBC W/AUTO DIFF (09/29/21 03:19) WHITE BLOOD CELL 3.9L L RED BLOOD CELL 3.55 L HEMOGLOBIN 10.4L L HEMATOCRIT 31.5L L MEAN CELL VOLUME 88.7 MEAN CELL HGB 29.3 MEAN CELL HGB CONCENTRATION 33.0 RED CELL DISTRIBUTION WIDTH 14.8 PLATELET COUNT 208 MEAN PLATELET VOLUME 11.4 NEUTROPHIL % 39.3 L LYMPHOCYTE % 51.4 H MONOCYTE % 7.5 EOSINOPHIL % 1.0 BASOPHIL % 0.8 NEUTROPHIL # 1.53 L LYMPHOCYTE # 2.00 MONOCYTE # 0.29 EOSINOPHIL # 0.04 BASOPHIL # 0.03 COVID 19 INHOUS (09/28/21 23:19) COVID 19 INHOUSE AG NEGATIVE BASIC METABOLIC PANEL (09/28/21 23:04) SODIUM 138 POTASSIUM 3.3L L CHLORIDE 102 CARBON DIOXIDE 31 GLUCOSE 127H H BLOOD UREA NITROGEN 10 GLOMERULAR FILTRATION RATE >=60 max estimate CREATININE 1.00 CALCIUM 7.6 L BNP (09/28/21 23:04) B-TYPE NATRIURETIC PEPTIDE 54 CBC W/AUTO DIFF (09/28/21 23:04) WHITE BLOOD CELL 3.6L L RED BLOOD CELL 3.75 L HEMOGLOBIN 10.8L L HEMATOCRIT 33.6L L MEAN CELL VOLUME 89.6 MEAN CELL HGB 28.8 MEAN CELL HGB CONCENTRATION 32.1 L RED CELL DISTRIBUTION WIDTH 14.9 PLATELET COUNT 210 MEAN PLATELET VOLUME 11.3 NEUTROPHIL % 35.2 L LYMPHOCYTE % 52.9 H MONOCYTE % 8.3 EOSINOPHIL % 2.5 BASOPHIL % 1.1 NEUTROPHIL # 1.27 L LYMPHOCYTE # 1.91 MONOCYTE # 0.30 EOSINOPHIL # 0.09 BASOPHIL # 0.04 TROPI (09/28/21 23:04) TROPONIN-I < 2.5 L -- ASSESSMENT AND PLAN -- GENERAL ASSESSMENT: see enclosed H P. No interval change Signed in PatientKeeper by MCKENNA TREVINO MD on 09/29/21 at 16:26 at 1626 ATTENTION *EDITS and/or ADDENDA must be made in Patient Keeper for this note. * * Edits and ammendments created in [employer] are not visible * * in Patient Keeper or the legal medical record ([facility]). * RPT #: [id number] END OF REPORT [facility] 2021-09-29 15:42:00 [facility] ([facility]) Pre-Sedation Assessment REPORT #: [id number] REPORT STATUS: Signed DATE: 09/29/21 TIME: 1542 PATIENT: KAMRAN BELLO UNIT #: [id number] ROOM #: P.0590 BED: A : 79 AGE: 41 SEX: F ATTEND: Ron Tipton MD ADM AUTHOR: Mckenna Trevino MD ATTENTION *EDITS and/or ADDENDA must be made in Patient Keeper for this note. * * Edits and ammendments created in [employer] are not visible * * in Patient Keeper or the legal medical record ([facility]). * -- HISTORY -- AIRWAY: adequate MALLAMPATI CLASS: I ASA STATUS: 3 SEDATION PLAN: Moderate RE-EVAL IMMED PRIOR TO INDUCTION: Yes Signed in PatientKeeper by MCKENNA TREVINO MD on 09/29/21 at 16:26 at 1626 ATTENTION *EDITS and/or ADDENDA must be made in Patient Keeper for this note. * * Edits and ammendments created in [employer] are not visible * * in Patient Keeper or the legal medical record (HPF). * RPT #: [id number] END OF REPORT [facility] 2021-09-29 09:11:00 [facility] ([facility]) Internal Med. H P REPORT #: [id number] REPORT STATUS: Signed DATE: 09/29/21 TIME: 910 PATIENT: KAMRAN BELLO UNIT #: [id number] ROOM #: P.0590 BED: A : 79 AGE: 41 SEX: F ATTEND: Ron Tipton MD ADM AUTHOR: Mike Rosa APRN ATTENTION *EDITS and/or ADDENDA must be made in Patient Keeper for this note. * * Edits and ammendments created in [employer] are not visible * * in Patient Keeper or the legal medical record (HPF). * -- CO-SIGNATURE -- COMMENTS: Discussed with Dr. Hurst Patient seen and examined. History taken bedside. bedside Plan of care discussed with patient, all questions answered to her satisfaction Agree with the findings as detailed by Mike Rosa APRN Plans for the acute medical problems are enumerated below Total time spent coordinating admission care > 75 mins Signed in PatientKeeper by RON TIPTON MD on 09/30/21 at 00:15 -- HISTORY -- ADMISSION DATE: 2021-09-28 PRIMARY CARE PROVIDER: Jasper Hurst MD CHIEF COMPLAINT: shortness of breath HPI: Patient is a 41 year old woman history of asthma, diabetes mellitus, Graves' disease who was initially diagnosed with a pericardial effusion last month when incidentally seen on CT abdomen pelvis. Patient followed up her emissions engineer, Dr. Hurst. Ultrasound showed moderate to large pericardial effusion, no tamponade. Patient reports shortness of breath over the past couple of days. She was started on ibuprofen 600 mg 3 times daily, colchicine 0.6 mg twice daily, pantoprazole 40 mg daily. Given her shortness of breath, the patient was referred to [facility] for further management. PAST MEDICAL HISTORY: asthma, diabetes mellitus, Graves' disease, supraventricular tachycardia PAST SURGICAL HISTORY: SVT ablation thyroidectomy FAMILY HISTORY: noncontributory -SOCIAL HISTORY- MARITAL STATUS: ADDITIONAL SOCIAL HISTORY: Occasionally smokes cigars, social alcohol use. Denies illicit drug use -- ALLERGIES/HOME MEDS -- ALLERGIES: sumatriptan (Intermediate - Allergy) HOME MEDICATIONS: Levothyroxine Tab (Synthroid Tab) 125 MCG PO DAILY OZEMPIC 0.25 MG SubQ Q SATURDAY -- SUBJECTIVE -- -REVIEW OF SYSTEMS- GENERAL: Negative for fever, malaise, fatigue. EYES: Negative for blurry vision. No diplopia. EARS/NOSE/THROAT: Negative for sore throat. No otalgia. No rhinorrhea. RESPIRATORY: Positive for dyspnea. No wheeze. No cough. CARDIOVASCULAR: Negative for chest pain or palpitations. No extremity swelling. GASTROINTESTINAL: Negative for abdominal pain or nausea. No emesis. No diarrhea. GENITOURINARY: Negative for dysuria, frequency, or urgency. No gross hematuria. MUSCULOSKELETAL: Negative for joint stiffness, pain, or arthralgias. SKIN: Negative for rashes. No pruritus. NEUROLOGICAL: Negative for headache. No vertigo. Denies paresthesias. PSYCHIATRIC: Negative for specific complaints. ENDOCRINE: Negative for cold intolerance, heat intolerance, polyphagia, polydipsia, polyuria, weight change, fatigue. HEMATALOGIC / LYMPHORETICULAR: Negative for excessive bleeding, unusual masses. ALLERGIC / IMMUNOLOGIC: Negative for heat/cold intolerance, polydipsia, or polyuria. -- OBJECTIVE -- VITALS (09/28 09:11 - 09/29 09:11): Temperature F: 98.1 (98.0 - 98.1) Temperature C: 36.7 Temperature source: Oral Pulse Rate 65 (54 - 65) Respiratory rate: 20 (13 - 20) BP: 156/93 (144/82 - 169/100) Blood pressure source: Monitor I/Os (09/28 07:00 - 09/29 07:00): Net -400 Output 400 -EXAM- GENERAL: alert and cooperative, appears comfortable. In no distress. HEAD: Normocephalic, atraumatic. EYES: PERRL, EOM intact, conjunctiva and sclera clear, without nystagmus, lids normal. EARS: normal canals, grossly normal hearing. NOSE: No deformity, no discharge, no inflammation, no lesions. MOUTH: Oropharynx without deformities or lesions, normal mucosa.. NECK: No masses, no thyromegaly, no abnormal cervical nodes, trachea midline. CHEST: Grossly normal appearance. BREAST: deferred LUNGS: diminished with normal respiratory effort. HEART: Regular rate and rhythm, normal S1, S2, no murmurs, no rubs, no gallops, no clicks. ABDOMEN: Soft, non-tender, no organomegaly, no masses noted. MUSCULOSKELETAL: No deformity, no scoliosis noted of thoracic or lumbar spine, joint ROM grossly normal EXTREMITIES: No clubbing, no cyanosis, no edema. NEUROLOGICAL: No focal deficits, cranial nerves II-XII grossly intact, normal sensation, normal coordination, normal muscle strength, normal tone. PULSES: Pulses normal in all extremities. RECTAL: deferred GENITOURINARY: deferred SKIN: Intact without significant lesions, or rashes. LYMPH NODES: No significant node adenopathy. PSYCHIATRIC: Alert and oriented to time, person, place. Normal mood and affect, intact judgment and insight. OTHER: at bedside. -- DATA -- LABS TROPI (09/29/21 06:07) TROPONIN-I < 2.5 L TROPI (09/29/21 03:19) TROPONIN-I < 2.5 L MAG (09/29/21 03:19) MAGNESIUM 2.1 COMPREHENSIVE METABOLIC PANEL (09/29/21 03:19) SODIUM 139 POTASSIUM 3.4 L CHLORIDE 104 CARBON DIOXIDE 30 GLUCOSE 96 BLOOD UREA NITROGEN 9 GLOMERULAR FILTRATION RATE >=60 max estimate CREATININE 1.10 H TOTAL PROTEIN 7.5 ALBUMIN 4.1 CALCIUM 7.7 L BILIRUBIN TOTAL 0.5 SGOT/AST 14 SGPT/ALT < 7 L ALKALINE PHOSPHATASE 81 CBC W/AUTO DIFF (09/29/21 03:19) WHITE BLOOD CELL 3.9L L RED BLOOD CELL 3.55 L HEMOGLOBIN 10.4L L HEMATOCRIT 31.5L L MEAN CELL VOLUME 88.7 MEAN CELL HGB 29.3 MEAN CELL HGB CONCENTRATION 33.0 RED CELL DISTRIBUTION WIDTH 14.8 PLATELET COUNT 208 MEAN PLATELET VOLUME 11.4 NEUTROPHIL % 39.3 L LYMPHOCYTE % 51.4 H MONOCYTE % 7.5 EOSINOPHIL % 1.0 BASOPHIL % 0.8 NEUTROPHIL # 1.53 L LYMPHOCYTE # 2.00 MONOCYTE # 0.29 EOSINOPHIL # 0.04 BASOPHIL # 0.03 COVID 19 INHOUS (09/28/21 23:19) COVID 19 INHOUSE AG NEGATIVE BASIC METABOLIC PANEL (09/28/21 23:04) SODIUM 138 POTASSIUM 3.3L L CHLORIDE 102 CARBON DIOXIDE 31 GLUCOSE 127H H BLOOD UREA NITROGEN 10 GLOMERULAR FILTRATION RATE >=60 max estimate CREATININE 1.00 CALCIUM 7.6 L BNP (09/28/21 23:04) B-TYPE NATRIURETIC PEPTIDE 54 CBC W/AUTO DIFF (09/28/21 23:04) WHITE BLOOD CELL 3.6L L RED BLOOD CELL 3.75 L HEMOGLOBIN 10.8L L HEMATOCRIT 33.6L L MEAN CELL VOLUME 89.6 MEAN CELL HGB 28.8 MEAN CELL HGB CONCENTRATION 32.1 L RED CELL DISTRIBUTION WIDTH 14.9 PLATELET COUNT 210 MEAN PLATELET VOLUME 11.3 NEUTROPHIL % 35.2 L LYMPHOCYTE % 52.9 H MONOCYTE % 8.3 EOSINOPHIL % 2.5 BASOPHIL % 1.1 NEUTROPHIL # 1.27 L LYMPHOCYTE # 1.91 MONOCYTE # 0.30 EOSINOPHIL # 0.09 BASOPHIL # 0.04 TROPI (09/28/21 23:04) TROPONIN-I < 2.5 L -- ASSESSMENT AND PLAN -- PROBLEMS: 1: Pericardial effusion A/P: Consult Dr. Hurst Monitor telemetry NPO for pericardiocentesis in [employer] buprofen 600 mg tid, colchicine 0.6 mg bid, pantoprazole 40 mg daily 2: Hypertension A/P: Not on medication at home hydralazine 5 mg IV q2h prn SBP > 150 mmHg 3: Hypothyroidism A/P: Continue levothyroxine 125 mcg daily 4: Graves disease A/P: status post thyroidectomy 5: Asthma A/P: Duoneb prn 6: Diabetes mellitus A/P: Ozempic 0.25 mg sq every Saturday. 7: DVT prophylaxis A/P: SCDs Signed in PatientKeeper by Mike Rosa APRN on 09/29/21 at 09:53 Cosigned by RON TIPTON MD on 09/30/21 at 00:15 at 0015 at 0015 ATTENTION *EDITS and/or ADDENDA must be made in Patient Keeper for this note. * * Edits and ammendments created in [employer] [facility] are not visible * * in Patient Keeper or the legal medical record (HPF). * [facility] #: [id number] END OF REPORT [facility] 2021-09-28 23:16:00 [facility] EMERGENCY PROVIDER REPORT REPORT#:[id number] REPORT STATUS: Signed DATE:09/28/21 TIME: 2315 PATIENT: KAMRAN BELLO UNIT #: [id number] [facility] BED: 1 AGE: 41 SEX: F PCP PHYS: Undefined Provider SERVICE AUTHOR: Avila Nath MD * ALL edits or amendments must be made on the electronic/computer document * HPI-General Illness General Initial Greet Date/Time 09/28/21 2251 Presentation Chief Complaint pericardial effusion Hx Obtained From Patient Exacerbated by Nothing Relieved by Nothing Context Similar Sx Previous No Free Text HPI Notes Free Text HPI Notes 41-year-old female history of Graves' disease, asthma, DM2 sent here by her emissions engineer for evaluation of pericardial effusion. Patient states initially diagnosed with pericardial effusion last month when incidentally seen on CT abdomen pelvis and informed to follow-up with cardiology. Patient states she followed with emissions engineer today. Endorses shortness of breath over past 2 days. Denies any fever, emesis, chest pain, abdominal pain, weakness. Discussed with patient's emissions engineer, Dr. Hurst. Ultrasound showed moderate to large pericardial effusion, no tamponade. Started patient on ibuprofen 600 mg 3 times daily, colchicine 0.6 mg twice daily, pantoprazole 40 mg daily. Given shortness of breath directed patient to ED. Review of Systems ROS Statements All systems rev neg except as marked. Review of Systems Constitutional Denies: Fever. Respiratory Reports: Shortness of breath. Denies: Cough, non-productive, Cough, productive. Cardiovascular Denies: Chest pain. GI Denies: Abdominal pain, Nausea, Vomiting. Neurologic Denies: Generalized weakness. Past Medical History - Adult Stated Complaint DRAIN FLUID FROM HEART Allergies Coded Allergies: sumatriptan (From IMITREX) (Intermediate, ANXIETY 09/28/21) Home Medications Reported Medications No Known Home Medications Calculated Suicide Risk (nurs) No risk Past Medical History: Reports: Diabetes mellitus. Additional Medical History Graves Disease Smoking status for patients 13 years old or older: Never Smoker Physical Exam Vital Signs Vital Signs First Documented: Result Date Time Pulse Ox 100 09/28 2254 B/P 153/97 09/28 2254 B/P Mean 115 09/28 2254 O2 Delivery Room air 09/28 2253 Temp 36.7 09/28 2254 Pulse 64 09/28 2254 Resp 18 09/28 2253 Last Documented: Result Date Time Pulse Ox 100 09/28 2302 B/P 153/97 09/28 2254 B/P Mean 115 09/28 2254 O2 Delivery Room air 09/28 2253 Temp 36.7 09/28 2254 Pulse 64 09/28 2254 Resp 18 09/28 2253 Review of Vital Signs Reviewed Physical Exam General/Const General/Const Awake, Alert, No acute distress, Well appearing, Cooperative, Not toxic appearing MS Head Head Atraumatic, Normocephalic Eyes Eyes Atraumatic, EOMI Ears/Nose/Throat Ears/Nose/Throat Airway patent, Mucous membranes moist MS Neck Neck Supple, No swelling Resp/Chest Respiratory/Chest Breath sounds NL, Breath sounds = bilat, No respiratory distress, No rales, No rhonchi, No wheezing Cardiovascular Cardiovascular Heart rate NL, Regular rhythm, Heart sounds NL, No gallop, No murmurs, No rubs Abdomen/GI Abdomen/GI Soft, Non-tender, No rebound, No distention MS Upper Extrem Upper Extremity/MS Atraumatic, Inspection NL MS Lower Extrem Lower Ext/Pelvis/MS No edema Skin Skin No rash, Intact Neurologic Neurologic Speech NL, Gait NL Psychiatric Psychiatric Affect NL, Mood NL Interpretation Diagnostics Lab Results Interpretation Results Laboratory Tests 09/28/212303: [Embedded Image Not Available] 09/28/212303: [Embedded Image Not Available] Laboratory Tests: 09/28 Chemistry Sodium (136 - 145 [...] (Auto) (20.5 - 51.1 %) 52.9 H [place] % (Auto) (1.7 - 9.3 %) 8.3 Eos % (Auto) (0.0 - 7.0 %) 2.5 Baso % (Auto) (0 - 2.5 %) 1.1 Neut # (Auto) (1.80 - 7.70 x10 3/uL) 1.27 L Lymph # (Auto) (1.00 - 4.80 x10 3/uL) 1.91 [place] # (Auto) (0.00 - 0.80 x10 3/uL) 0.30 Eos # (Auto) (0.00 - 0.45 x10 3/uL) 0.09 Baso # (Auto) (0.0 - 0.20 x10 3/uL) 0.04 09/28 09/28 2304 2319 Chemistry Troponin I High Sens (27.36 - 66.23 pg/mL) < 2.5 L Serology SARS-CoV-2 Ag (Rapid) (NEGATIVE) NEGATIVE Recent Impressions: RADIOLOGY - XR CHEST 1 V 09/28 7380 Report Impression - Status: SIGNED Entered: 09/28/2021 2341 IMPRESSION: Enlarged globular contour of the cardiac silhouette is suggestive of large pericardial effusion. Impression By: [email or web address] - YOSEF GODWIN M.D. Lab Imaging Statement Laboratory radiographic studies reviewed and considered in the medical decision-making. ECG #1 Interpretation Interpreted by ED physician NL ECG Interpretation Normal sinus rhythm, No acute ischemic changes, No STEMI, Normal QRS, Normal ST waves, Normal T waves Rate 59 Radiography X-Ray Chest View 1 view Text/Dict Note Globular enlarged pericardial silhouette. Re-Evaluation MDM Re-Evaluation/Progress #1 Text/Dict Note Patient stable, sitting comfortably in bed, vital signs stable. Discussed with patient's emissions engineer, will do pericardiocentesis in [employer] in morning, keep n.p.o., admit to Dr. Tipton. Discussed with Dr. Tipton, will admit. Time of Re-Eval 2320 ED Course Medication(s) Ordered Medication(s) Ordered: Central Nervous System Agents Sig/Mona Start time Last Medication Dose Route Stop Time Status Admin Ibuprofen 600 MG Q6HR 09/29 0000 AC 09/29 PO 10/29 0001 0025 Acetaminophen 650 MG Q4H PRN PRN 09/28 2330 AC PO 09/29 222 Aspirin 324 MG X1ED STA 09/28 2251 DC 09/28 PO 09/28 2252 2307 Electrolytic, Caloric, And Aba Sig/Mona Start time Last Medication Dose Route Stop Time Status Admin Sodium Chloride 1,000 ML ONCE ONE 09/28 2330 DCr 09/29 IV 09/29 1929 0024 Gastrointestinal Drugs Sig/Mona Start time Last Medication Dose Route Stop Time Status Admin Pantoprazole 40 MG DAILY 09/29 899 AC PO 10/29 900 Ondansetron HCl 4 MG Q6H PRN PRN 09/28 2330 AC IV 09/29 2220 Miscellaneous Therapeutic Agen Sig/Mona Start time Last Medication Dose Route Stop Time Status Admin Colchicine 0.6 MG BID 09/29 899 AC PO 10/29 900 Patient Discharge Departure Vital Signs/Condition Vital Signs First Documented: Result Date Time Pulse Ox 100 09/28 2254 B/P 153/97 09/28 2254 B/P Mean 115 09/28 225 O2 Delivery Room air 07/07 2254 Temp 36.7 09/28 2254 Pulse 64 09/28 2254 Resp 18 09/28 2253 Last Documented: Result Date Time Pulse Ox 100 09/282 B/P 153/97 09/28 2253 B/P Mean 115 09/28 2253 O2 Delivery Room air 09/28 2253 Temp 36.7 09/284 Pulse 64 09/28 2254 Resp 18 09/28 2253 All vital signs available at the time of this entry have been reviewed. Condition Improved Clinical Impression Clinical Impression Primary Impression: Pericardial effusion Time of Impression 2317 Disposition Decision Admit Admit Physician Name Ron Tipton MD Admit Physician Hospitalist Request Time 2319 Request Date 09/28/21 )( Admission Accepts Yes )( Accepted Time 2319 )( Accepted Date 09/28/21 Discharge/Care Plan Counseled Regarding Diagnosis, Lab results, Imaging studies, Need for admission (Auto) Prescriptions Current Visit Scripts No Known Home Medications Admit Note I have spoken with the patient and/or caregivers. I have explained the patient's condition, diagnoses and treatment plan based on the information available to me at this time. I have answered the patient's and/or caregiver's questions and addressed any concerns. The patient and/or caregivers have as good an understanding of the patient's diagnosis, condition and treatment plan as can be expected at this point. The patient has been stabilized within the capability of the emergency department. The patient will be transported for further care and management or will be moved to an observation or inpatient service. I have communicated with the staff or medical practitioner taking over this patient's care. at 0034 RPT #:[id number] END OF REPORT [facility] 2021-09-28 23:10:00 [id number] [address] PATIENT NAME: KAMRAN BELLO ADMIT DATE: 09/28/21 ACCOUNT NO: [id number] ROOM NO: [id number].[id number] AGE: 41 REPORT TYPE: eELECTROCARDIOGRAM SEX: F ADMITTING PHYSICIAN: Ron Tipton MD ATTENDING PHYSICIAN: Ron Tipton MD Order: [id number] Test Reason : SX Test Date/Time Stamp: SatSep 28 2021 23:10:32 Blood Pressure : / mmHG Vent. Rate : 059 BPM Atrial Rate : 059 BPM P-R Int : 166 ms QRS Dur : 088 ms QT Int : 372 ms P-R-T Axes : 012 -10 076 degrees QTc Int : 368 ms Sinus bradycardia Low voltage QRS Cannot rule out Anterior infarct , age undetermined Abnormal ECG No previous ECGs available Confirmed by HUMBERTO VALERIO MD ([id number]) on 09/29/2021 4:41:25 PM Referred By: Self Referred Confirmed by:HUMBERTO VALERIO MD at 1641 PATIENT NAME: KAMRAN BELLO [facility] 2021-08-30 23:04:00 [id number] [place] [address] PATIENT NAME: DAVID BELLO HQIRRO N ADMIT DATE: 08/30/21 ACCOUNT NO: [id number] ROOM NO: AGE: 41 SEX: F ADMITTING PHYSICIAN: ATTENDING PHYSICIAN: Robyn Henry MD Order: [id number] Test Reason : LARGE PERICARDIAL EFFUSION Test Date/Time Stamp: SatAug 30 2021 23:04:14 Blood Pressure : / mmHG Vent. Rate : 061 BPM Atrial Rate : 061 BPM P-R Int : 140 ms QRS Dur : 090 ms QT Int : 404 ms P-R-T Axes : 042 043 -81 degrees QTc Int : 406 ms Normal sinus rhythm Septal infarct , age undetermined Abnormal ECG No previous ECGs available Confirmed by TIFFANI STONE MD ([id number]) on 09/03/2021 8:22:27 PM Referred By: Robyn Henry Confirmed by:TIFFANI STONE MD at 2021 PATIENT NAME: DAVID BELLO HQIRRO N [facility] 2021-08-30 22:17:00 [facility] ([facility]) EMERGENCY PROVIDER REPORT REPORT#:[id number] REPORT STATUS: Signed DATE:08/30/21 TIME: 2216 PATIENT: DAVID BELLO HQIRRO N UNIT #: [id number] ROOM/BED: AGE: 41 SEX: F PCP PHYS: DOES_NOT KNOW SERVICE AUTHOR: Robyn Henry MD * ALL edits or amendments must be made on the electronic/computer document * HPI-Abd Pain F 40 and Over General Initial Greet Date/Time 08/30/211948 Presentation Chief Complaint Flank pain R Hx Obtained From Patient Sudden in Onset? No Free Text HPI Notes Free Text HPI Notes 41-year-old female with history of kidney stones requiring surgical intervention twice in 2019 presents with dysuria and right flank pain x1 week. Patient states this is associated with increased urination and urinary urgency. Patient also reports nausea and vomiting and fever with onset yesterday. Patient denies abdominal pain. Patient has an appointment with urology next week. Risk-Abd Pain F 40 and Over )( Abdominal Aortic Aneurysm Risk factors reviewed Review of Systems ROS Statements All systems rev neg except as marked. Focused Review of Systems Constitutional Reports: Fever. Respiratory Denies: Cough, non-productive, Cough, productive, Shortness of breath. Cardiovascular Denies: Chest pain. GI Reports: Nausea, Vomiting. Denies: Abdominal pain. Female Reports: Dysuria, Flank pain, Urinary frequency, Urinary urgency. Denies: Pelvic pain, Vaginal bleeding - abnl. Musculoskeletal Reports: Back pain. Denies: Extremity pain, Extremity swelling. Past Medical History - Adult Stated Complaint DYSURIA Allergies Coded Allergies: sumatriptan (From IMITREX) (ITCHY 08/30/21) Physical Exam Vital Signs Vital Signs First Documented: Result Date Time Pulse Ox 100 08/30 1946 B/P 139/78 08/30 1946 B/P Mean 98 08/30 1946 O2 Delivery Room air 08/30 1946 Temp 100.8 08/30 1946 Pulse 85 08/30 1946 Resp 17 08/30 1946 Last Documented: Result Date Time Pulse Ox 97 09/01 143 B/P 141/79 09/01 143 B/P Mean 99 09/01 143 O2 Delivery Room air 09/01 143 Temp 97.8 09/01 143 Pulse 66 09/01 143 Resp 18 08/314 Review of Vital Signs Reviewed Focused PE General/Const General/Const Awake, Alert, No acute distress, Well appearing, Well developed , Well hydrated, Well nourished, Cooperative, Not toxic appearing MS Head Head Atraumatic, Normocephalic Resp/Chest Respiratory/Chest Atraumatic, Breath sounds NL, Breath sounds = bilat, No respiratory distress, No rales, No rhonchi Cardiovascular Cardiovascular Heart rate NL, Regular rhythm, Heart sounds NL, No gallop, No murmurs Abdomen/GI Abdomen/GI Atraumatic, Soft, Non-tender, McBurney's non-tender, No guarding, BS normoactive, No distention MS Back Back Atraumatic, Inspection NL Text/Dict Notes severe right CVAT, mild left CVAT Skin Skin Atraumatic, Color NL, No rash, Warm, Dry, Intact, Turgor NL, No swelling Neurologic Neurologic Oriented X3, Speech NL, CN II - XII intact, Gait NL Interpretation Diagnostics Lab Results Interpretation Results Laboratory Tests 08/30/212129: [Embedded Image Not Available] 08/30/21 2013: [Embedded Image Not Available] Laboratory Tests: 08/30 08/30 08/30 08/30 2253 2253 [...] (Auto) (14.5 - 29.7 %) 13.9 L [place] % (Auto) (3.6 - 10.2 %) 9.0 Eos % (Auto) (0.0 - 3.0 %) 0.1 Baso % (Auto) (0.1 - 0.9 %) 0.3 Neut # (Auto) (K/mm3) 10.8 Lymph # (Auto) (K/mm3) 2.0 [place] # (Auto) (K/mm3) 1.3 Eos # (Auto) (K/mm3) 0.01 Baso # (Auto) (K/mm3) 0.0 06/08 1950 Urines Urine Color (YELLOW) YELLOW Urine Appearance (CLEAR) HAZY Urine pH (5 - 9) 6.0 Ur Specific [place] (1.001 - 1.035) 1.015 Urine Protein (NEGATIVE) [...] 2039 Urine Culture - RECD URINE Recent Impressions: CAT SCAN - CT ABD PELVIS W/O CONT [...] pericardial effusion. Impression By: [email or web address] - Darius Noonan MD RADIOLOGY - XR CHEST 2 V 08/30 2321 Report Impression - Status: SIGNED Entered: 08/31/2021 0001 IMPRESSION: Cardiomegaly. The concurrent CT abdomen/pelvis demonstrates large pericardial effusion. Impression By: [email or web address] - Donnie García MD Lab Imaging Statement Laboratory radiographic studies reviewed and considered in the medical decision-making. ECG #1 Interpretation Text/Dict Note Normal sinus rhythm at 61 bpm, normal axis, normal intervals, nonspecific ST/T changes Date 08/30/21 Time 1104 Interpreted by and reviewed by me, ED physician Rate 61 Re-Evaluation MDM )( Re-Evaluation/Progress #1 Text/Dict Note On multiple reevaluations patient continues to deny chest pain or shortness of breath. Time of Re-Eval 0122 )( Re-Eval Status Improved ED Course Medication(s) Ordered Medication(s) Ordered: Anti-Infective Agents Sig/Mona Start time Last Medication Dose Route Stop Time Status Admin Ceftriaxone Sodium 1,000 MG X1ED STA 08/31 2211 DC 08/30 Sodium Chloride 100 ML IV 08/30 Central Nervous System Agents Sig/Mona Start time Last Medication Dose Route Stop Time Status Admin Ketorolac 30 MG X1ED STA 08/30 2049 DC 08/30 Tromethamine IV 08/30 Acetaminophen 1,000 MG X1ED STA 08/30 1958 DC 08/30 PO 08/30 Electrolytic, Caloric, And Aba Sig/Mona Start time Last Medication Dose Route Stop Time Status Admin Potassium Chloride 40 MEQ X1ED STA 08/306 DC 08/30 PO 08/30 Sodium Chloride 1,000 ML X1ED STA 08/30 2049 DC 08/30 IV 08/30 Gastrointestinal Drugs Sig/Mona Start time Last Medication Dose Route Stop Time Status Admin Ondansetron HCl 4 MG X1ED STA 08/30 2049 DC 08/30 IV 08/30 Consultation Consultation [employer] Called Cardiology (Dr Allen) Requested Call Time 011 Requested Call Date 08/31/21 Call Returned Call returned Call Returned Time 111 Call Returned Date 08/31/21 [employer] zander to d/c home with outpatient evaluation for pericardial effusion. Patient Discharge Departure Vital Signs/Condition Vital Signs First Documented: Result Date Time Pulse Ox 100 08/30 194 B/P 139/78 08/30 194 B/P Mean 98 08/30 1946 O2 Delivery Room air 08/30 1946 Temp 100.8 08/30 1946 Pulse 85 08/30 194 Resp 17 08/30 1946 Last Documented: Result Date Time Pulse Ox 97 / 0144 B/P 141/79 / 0144 B/P Mean 99 / 0144 O2 Delivery Room air 06/ 0144 Temp 97.8 06/ 0144 Pulse 66 06/ 0144 Resp 18 / 0144 All vital signs available at the time of this entry have been reviewed. Condition Stable Clinical Impression Clinical Impression Primary Impression: UTI (urinary tract infection) Secondary Impressions: Kidney stones, Pericardial effusion Time of Impression 0122 Disposition Decision Discharge )( Discharged to Home Yes )( Time 0122 )( Date 08/31/21 Discharge/Care Plan Counseled Regarding Diagnosis, Lab results, Imaging studies, Prescriptions, Need for follow-up, When to return to ED (Auto) Prescriptions Current Visit Scripts CEPHALEXIN (KEFLEX) 500 MG PO Q12HR CEPHALEXIN (KEFLEX) 500 MG PO Q12HR #20 CAPS Take for 10 days KETOROLAC (TORADOL) 10 MG PO Q6H PRN PRN PAIN KETOROLAC (TORADOL) 10 MG PO Q6H PRN PRN PAIN #20 TABS Patient Instructions ED Kidney Stone, Passed, Urinary Tract Infections in Women Referrals Provider Referral: Dung Allen MD Follow-Up: Call for appointment Address: [address] [facility] [address] [place] [id number] Discharge Note I have spoken with the patient and/or caregivers. I have explained the patient's condition, diagnoses and treatment plan based on the information available to me at this time. I have answered the patient's and/or caregiver's questions and addressed any concerns. The patient and/or caregivers have as good an understanding of the patient's diagnosis, condition and treatment plan as can be expected at this point. The vital signs have been stable. The patient's condition is stable and appropriate for discharge from the emergency department. The patient will pursue further outpatient evaluation with the primary care physician or other designated or consulting physician as outlined in the discharge instructions. The patient and/or caregivers are agreeable to this plan of care and follow-up instructions have been explained in detail. The patient and/or caregivers have received these instructions in written format and have expressed an understanding of the discharge instructions. The patient and/or caregivers are aware that any significant change in condition or worsening of symptoms should prompt an immediate return to this or the closest emergency department or a call to 911. at 0521 RPT #:[id number] END OF REPORT [facility]
[2023-11-02] MEDS ORDERED: ONDANSETRON 4 MG/2 ML VIAL ONE (20:58)
[2023-11-02] MEDS ORDERED: NA CHLORIDE 0.9% 1,000 ML ONE (20:58)
[2023-11-02] MEDS ORDERED: KETOROLAC 30 MG/ML INJ ONE (20:58)
[2023-11-02 21:08] LABS: Absolute Basophils 0.1 K/uL (0-0.5); Absolute Eosinophils 0.1 K/uL (0-0.5); Absolute Lymphocytes (CBC) 2.1 K/uL (0.7-4.9); Absolute Monocytes 0.4 K/uL (0.1-1.3); Absolute Neutrophil 3.4 K/uL (1.8-8.0); Basophils % 1.3 % (0-1.3); Eosinophils % 1.8 % (0-4.4); Hematocrit 35.7 % (36.0-45.0); Hemoglobin 11.5 g/dL (12.0-15.0); MCH 25.4 pg (27.0-35.0); MCHC 32.3 g/dL (32.0-36.0); MCV 78.6 fL (80-100); MPV 8.4 fL (7.6-11.3); Monocytes % 6.7 % (3.3-12.3); Neutrophils % 56.2 % (41.7-73.7); Nucleated Red Blood Cells % 0.1 % (0-0); Platelets 315 thou/uL (152-406); RBC Red Blood Cell Count 4.55 M/uL (3.86-4.86); Red Cell Distribution Width 18.2 % (12.1-15.2)
[2023-11-02 21:42] LABS: Albumin 3.6 g/dL (3.4-5.0); Albumin/Globulin Ratio 0.9 (1.1-1.8); Anion Gap 6.9 mEq/L (5.0-15.0); Bilirubin Total 0.3 mg/dL (0.2-1.0); Globulin 4.2 g/dL (2.3-3.5); Potassium 3.9 mEq/L (3.5-5.1); Protein, Total 7.8 g/dL (6.4-8.2)
[2023-11-02 22:53] LABS: Specific Gravity 1.013 (1.005-1.030); Sqamous Epithelial None Seen /HPF (None Seen); Urine Bacteria <20 /HPF (<20); Urine Bilirubin NEGATIVE (Negative); Urine Blood Negative (Negative); Urine Clarity Clear (Clear); Urine Color Colorless (Yellow); Urine Culture Reflex Order NOT NEEDED; Urine Glucose NEGATIVE (Negative); Urine Ketones NEGATIVE (Negative); Urine Microscopic Reflex YN ORDER UMIC; Urine Mucus Slight /HPF (None Seen); Urine Nitrite NEGATIVE (Negative); Urine Protein NEGATIVE (Negative); Urine RBC None Seen /HPF (None Seen); Urine Urobilinogen Normal (Normal); Urine WBC <5 /HPF (<5)
[2023-11-02 22:54] LABS: Specific Gravity 1.013 (1.005-1.030)
--- NOTE | 2023-11-03 00:04 | EDPHYS ---
Physician Documentation [facility] Name: Bon Riggins Age: 43 yrs Sex: Female : 1980 Arrival Date: 11/02/2023 Time: 20:20 Bed 19 Private MD: ED Physician Jesús Koo HPI: 11/02 00:01 This 43 yrs old Black Female presents to ER via Ambulatory with complaints of Possible kb Kidney Stone, Urinary Problem. 00:02 Pt is a 43 year old female who presents for right flank pain that radiates to RLQ, kb nausea, dysuria that started 5 days ago. States she has a history of kidney stones and this feels the same. Denies fever, vomiting, diarrhea. Denies any alleviating or aggravating factors. HOSPITAL CNA: 11/01 22:32 Not cp4 Historical: - Allergies: 20:34 dye; cm10 20:34 imipenem-cilastatin; cm10 20:34 Imitrex; cm10 - PMHx: 20:34 Asthma; hyperthyroidism; kidney disease; SVT; Kidney stone; cm10 - PSHx: 20:34 Thyroidectomy; cm10 - Immunization history:: Adult Immunizations up to date. - Infectious Disease History:: Denies. - Social history:: Smoking status: Patient denies any tobacco usage or history of. ROS: 11/02 00:00 Constitutional: As per HPI kb Exam: 00:00 Constitutional: This is a well developed, well nourished patient who is awake, alert, kb and in no acute distress. Head/Face: Normocephalic, atraumatic. ENT: Moist Mucous membranes Cardiovascular: Regular rate Respiratory: Respirations even and unlabored. No increased work of breathing. Talking in full sentences Abdomen/GI: Soft, non-tender. No distention Back: No spinal tenderness. No costovertebral tenderness. Full range of motion. Skin: Warm, dry with normal turgor. Normal color. MS/ Extremity: Pulses equal, no cyanosis. Neurovascular intact. Full, normal range of motion. Neuro: Awake and alert, GCS 15, oriented to person, place, time, and situation. Moves all extremities. Normal gait. Vital Signs: 11/01 20:33 BP 162 / 79; Pulse 68; Resp 16; Temp 97.9; Pulse Ox 99% ; Weight 102.06 kg; Height 5 cm10 ft. 5 in. ; Pain /; 21:00 BP 155 / 91; Pulse 65; Resp 18; Pulse Ox 98% ; cp4 22:00 BP 154 / 72; Pulse 68; Resp 18; Pulse Ox 99% ; cp4 23:00 BP 137 / 79; Pulse 63; Resp 18; Pulse Ox 98% ; cp4 11/02 00:00 BP 144 / 76; Pulse 58; Resp 18; Temp 97.9; Pulse Ox 99% ; cp4 11/01 20:33 Body Mass Index 37.44 (102.06 kg, 165.1 cm) cm10 11/01 20:33 Pain Scale: Adult cm10 MDM: 11/01 20:35 Patient medically screened. kb 11/02 00:00 Differential diagnosis: UTI, kidney stone, pyelonephritis. Data reviewed: vital signs, kb nurses notes. Counseling: I had a detailed discussion with the patient and/or guardian regarding the historical points, exam findings, and any diagnostic results supporting the discharge/admit diagnosis, lab results, radiology results, the need for outpatient follow up, a urologist, to return to the emergency department if symptoms worsen or persist or if there are any questions or concerns that arise at home. 11/01 20:37 Order name: CBC with Diff; Complete Time: 21:10 kb 11/01 20:37 Order name: CMP; Complete Time: 21:44 kb 11/01 20:37 Order name: Lipase; Complete Time: 21:44 kb 11/01 20:37 Order name: Test, Urine; Complete Time: 22:55 kb 11/01 20:37 Order name: Urinalysis w/ reflexes; Complete Time: 22:55 kb 11/01 20:37 Order name: CT Stone Protocol kb 11/01 20:37 Order name: IV Saline Lock; Complete Time: 21:06 kb 11/01 20:37 Order name: Labs collected and sent; Complete Time: 21:07 kb Administered Medications: 11/01 21:10 Drug: NS 0.9% IV 1000 ml IV at 1 bolus Per protocol; 1000 mL bolus Route: IV; Rate: 1 cp4 bolus; Site: right antecubital; 22:28 Follow up: Response: No adverse reaction; IV Status: Completed infusion; IV Intake: cp4 1000ml 21:10 Drug: TORadol - Ketorolac IVP 15 mg IVP once Route: IVP; Site: right antecubital; cp4 22:28 Follow up: Response: No adverse reaction cp4 21:10 Drug: Ondansetron IVP 4 mg IVP once; over 2 minutes Route: IVP; Site: right antecubital;cp4 22:28 Follow up: Response: No adverse reaction cp4 11/02 00:13 Drug: Flomax PO 0.4 mg PO once Route: PO; cp4 00:13 Follow up: Response: No adverse reaction cp4 Disposition Summary: 11/03/23 00:03 Discharge Ordered Notes: Location: Home kb Condition: Stable kb Diagnosis - Calculus of ureter kb Followup: kb - With: Emergency Department - When: As needed - Reason: Worsening of condition Followup: kb - With: Private Physician - When: 2 - 3 days - Reason: Recheck today's complaints, Continuance of care, Re-evaluation by your physician Discharge Instructions: - Discharge Summary Sheet kb - Kidney Stones, [id number] kb - Dietary Guidelines to Help Prevent Kidney Stones kb Forms: - Medication Reconciliation Form kb - Antibiotic Education kb - Prescription Opioid Use kb - Patient Portal Instructions kb - Leadership Thank You Letter kb Prescriptions: - Flomax 0.4 mg Oral capsule - take 1 capsule ORAL route daily; 10 capsule; Refills: 0, Product Selection kb Permitted - Zofran 4 mg Oral tablet - take 1 tablet ORAL route every 6 hours As needed; 12 tablet; Refills: 0, kb Product Selection Permitted - Diclofenac Sodium 75 mg Oral Tablet Sustained Release - take 1 tablet ORAL route 2 times per day; 30 tablet; Refills: 0, Product kb Selection Permitted Signatures: Dispatcher [employer] Angelica Madera, COMMUNITY SERVICE PATROL OFFICER-C COMMUNITY SERVICE PATROL OFFICER-Vangie Rosales, RN RN cm10 Soco Tucker cp4
--- NOTE | 2023-11-03 00:04 | ER ---
Nurse's Notes [facility] Name: Bon Riggins Age: 43 yrs Sex: Female : 1980 Arrival Date: 11/02/2023 Time: 20:20 Bed 19 Private MD: Diagnosis: Calculus of ureter Presentation: 11/01 20:33 Chief complaint: Patient states: Right flank pain onset Saturday. PT states that the cm10 pain radiates to her RLQ abdomen. Pt also reports nausea, headache and Dysuria. Coronavirus screen: Client denies travel out of the [place] in the last 14 days. At this time, the client does not indicate any symptoms associated with coronavirus-19. Ebola Screen: Patient denies travel to an Ebola-affected area in the 21 days before illness onset. No symptoms or risks identified at this time. Initial Sepsis Screen: Does the patient meet any 2 criteria? No. Patient's initial sepsis screen is negative. Does the patient have a suspected source of infection? No. Patient's initial sepsis screen is negative. Risk Assessment: Do you want to hurt yourself or someone else? Patient reports no desire to harm self or others. Onset of symptoms was November 02, 2023. 20:33 Method Of Arrival: Ambulatory cm10 20:33 Acuity: CARMENZA 3 cm10 BOOK SHELVER: 22:32 Not cp4 Historical: - Allergies: 20:34 dye; cm10 20:34 imipenem-cilastatin; cm10 20:34 Imitrex; cm10 - PMHx: 20:34 Asthma; hyperthyroidism; kidney disease; SVT; Kidney stone; cm10 - PSHx: 20:34 Thyroidectomy; cm10 - Immunization history:: Adult Immunizations up to date. - Infectious Disease History:: Denies. - Social history:: Smoking status: Patient denies any tobacco usage or history of. Screenin:02 [facility] ED Fall Risk Assessment (Adult) History of falling in the last 3 months, cp4 including since admission No falls in past 3 months (0 pts) Confusion or Disorientation No (0 pts) Intoxicated or Sedated No (0 pts) Impaired Gait No (0 pts) Mobility Assist Device Used No (0 pt) Altered Elimination No (0 pt) Score/Fall Risk Level 0 - 2 = Low Risk Oriented to surroundings, Maintained a safe environment, Assessed \T\ reinforced patient's understanding of fall precautions, Hourly rounding (assess needs \T\ fall precautionary measures) done. Abuse screen: Denies threats or abuse. Nutritional screening: No deficits noted. Tuberculosis screening: No symptoms or risk factors identified. Assessment: 21:02 General: Appears uncomfortable, Behavior is calm, cooperative, appropriate for age. cp4 Pain: Complains of pain in right flank. Neuro: Level of Consciousness is awake, alert, obeys commands, Oriented to person, place, time, situation. Cardiovascular: No deficits noted. Respiratory: No deficits noted. GI: Abdomen is round non-distended, Bowel sounds present X 4 quads. Abd is soft and non tender X 4 quads. : No deficits noted. EENT: No deficits noted. Derm: No deficits noted. Musculoskeletal: No deficits noted. 22:00 Reassessment: No changes from previously documented assessment. Patient and/or family cp4 updated on plan of care and expected duration. Pain level reassessed. Patient is alert, oriented x 3, equal unlabored respirations, skin warm/dry/pink. 23:00 Reassessment: No changes from previously documented assessment. Patient and/or family cp4 updated on plan of care and expected duration. Pain level reassessed. Patient is alert, oriented x 3, equal unlabored respirations, skin warm/dry/pink. Vital Signs: 20:33 BP 162 / 79; Pulse 68; Resp 16; Temp 97.9; Pulse Ox 99% ; Weight 102.06 kg; Height 5 cm10 ft. 5 in. ; Pain 5/10; 21:00 BP 155 / 91; Pulse 65; Resp 18; Pulse Ox 98% ; cp4 22:00 BP 154 / 72; Pulse 68; Resp 18; Pulse Ox 99% ; cp4 23:00 BP 137 / 79; Pulse 63; Resp 18; Pulse Ox 98% ; cp4 11/02 00:00 BP 144 / 76; Pulse 58; Resp 18; Temp 97.9; Pulse Ox 99% ; cp4 11/01 20:33 Body Mass Index 37.44 (102.06 kg, 165.1 cm) cm10 11/01 20:33 Pain Scale: Adult cm10 ED Course: 11/01 20:22 Patient arrived in ED. mr 20:34 Triage completed. cm10 20:35 Angelica Fernandez FNP-C [facility] kb 20:35 Jesús Koo MD is Attending Physician. kb 20:36 Arm band placed on Patient placed in waiting room. cm10 21:01 Soco Tucker is Primary Nurse. cp4 21:02 Bed in low position. Call light in reach. Side rails up X 1. cp4 21:02 No provider procedures requiring assistance completed. Inserted saline lock: 22 gauge cp4 in right antecubital area, using aseptic technique. Blood collected. Flushed with 10 mL NS. 23:06 CT Stone Protocol In Process Unspecified. EDWY 11/02 00:15 Provided Education on: kidney stone. cp4 00:15 intact, bleeding controlled, No redness/swelling at site. Pressure dressing applied. cp4 Administered Medications: 11/01 21:10 Drug: NS 0.9% IV 1000 ml IV at 1 bolus Per protocol; 1000 mL bolus Route: IV; Rate: 1 cp4 bolus; Site: right antecubital; 22:28 Follow up: Response: No adverse reaction; IV Status: Completed infusion; IV Intake: cp4 1000ml 21:10 Drug: TORadol - Ketorolac IVP 15 mg IVP once Route: IVP; Site: right antecubital; cp4 22:28 Follow up: Response: No adverse reaction cp4 21:10 Drug: Ondansetron IVP 4 mg IVP once; over 2 minutes Route: IVP; Site: right antecubital;cp4 22:28 Follow up: Response: No adverse reaction cp4 11/02 00:13 Drug: Flomax PO 0.4 mg PO once Route: PO; cp4 00:13 Follow up: Response: No adverse reaction cp4 Medication: 11/01 21:02 VIS not applicable for this client. cp4 Intake: 22:28 IV: 1000ml; Total: 1000ml. cp4 Outcome: 11/02 00:03 Discharge ordered by . kb 00:15 Discharged to home ambulatory, cp4 00:15 Condition: stable 00:15 Discharge instructions given to patient, Instructed on discharge instructions, follow up and referral plans. medication usage, Demonstrated understanding of instructions, follow-up care, medications, Prescriptions given X 3, 00:15 Patient left the ED. cp4 Signatures: Dispatcher [employer] EDMS Angelica Fernandez FNP-C WASH TANK TENDER-Ckb Hillary Villeda, Reg Reg Vangie Cantor, RN RN cm10 Soco Tucker cp4
[2023-11-03] MEDS ORDERED: TAMSULOSIN 0.4 MG SR CAP ONE (00:07)
[2023-11-03 01:12] VITALS: TEMP 97.9
[2023-11-03 01:17] VITALS: BP 144/76; O2SAT 99
--- NOTE | 2023-11-04 10:03 | RAD REPORT ---
EXAM DESCRIPTION: CT - Stone Protocol - 11/02/2023 11:04 pm CLINICAL HISTORY: 43-year-old female with flank pain. COMPARISON: None. TECHNIQUE: Volumetric CT of the abdomen and pelvis acquired without the intravenous administration o f contrast, limiting evaluation. Axial, coronal and sagittal images are provided. The study was perfo rmed using dose reduction techniques including automated exposure control and/or adjustment of the MA and/or KV according to patient size, and/or iterative reconstruction techniques. FINDINGS: Academic Coach/Lines, tubes and hardware: None. Lower thorax: Mild bibasilar subsegmental atelectasis and/or scarring. No consolidation or pleural ef fusion. Partially visualized small pericardial effusion. Liver: No hepatic lesion Biliary tree: No intra- or extrahepatic bile duct dilation. Gallbladder: No calcified cholelithiasis or pericholecystic inflammation Pancreas: No pancreatic lesion.. Spleen: No splenic lesion. Adrenals: No adrenal gland lesion. Kidneys/ureters/bladder: There is a 4 mm distal right ureteral calculus 1 cm proximal to the UVJ, wit h associated mild right hydroureteronephrosis. There is bilateral cortical medullary calcifications, suggestive of medullary nephrocalcinosis. There are likely scattered bilateral 2 mm renal minor calyc eal calculi, including lower pole of the left kidney on image 48, series 201. No left ureterolithiasi s or urinary bladder calculus. Reproductive organs: Uterus in situ. Gastrointestinal tract: Lower esophagus/stomach: Very small hiatal hernia. Stomach is partially decompressed. Small bowel: No acute abnormality.. Colon: Mild colonic diverticulosis, with moderate retained colonic stool. No diverticulitis. Appendix: Normal caliber partially gas-filled appendix. Peritoneum, mesentery and retroperitoneum: Trace nonspecific free pelvic fluid, which may be physiolo gic. Lymph nodes: No pathologic adenopathy based on size criteria. Vasculature: Aorta and branches: Aorta has a normal diameter. IVC and veins: Subcentimeter calcified pelvic phleboliths. Portal and mesenteric vasculature: Normal. Bones: Degenerative changes, including multilevel spondylosis. Soft tissues: Small umbilical hernia containing adipose tissue. IMPRESSION: 1. Mild right obstructive uropathy secondary to distal right ureterolithiasis, 1 cm pr oximal to the UVJ. 2. Bilateral medullary nephrocalcinosis and nephrolithiasis. 3. Mild colonic diverticulosis, with moderate retained colonic stool. Electronically signed by: David Ordoñez MD 11/02/2023 11:54 PM CDT RP Due to temporary technical issues with the PACS/Fluency reporting system, reports are being signed by the in house radiologist without review as a courtesy to ensure prompt reporting. The interpreting r adiologist is fully responsible for the content of the report.
== END 2023-11-03 00:15 | disposition home or self-care (01) ==
LOC: ER 20:20
DX: N20.1 Calculus of ureter (principal); Z87.442 Personal history of urinary calculi
CPT/HCPCS: 96361; 85025; 81001; 36415; 81025; 83690; 80053; 76377; 74176; 96375; 96374; 99284; J2405; J7030

== ENCOUNTER 2023-11-09 08:32 | Emergency (ER) | payer OTHER ==
[2023-11-09] MEDS ORDERED: ONDANSETRON 4 MG/2 ML VIAL ONE (08:59)
[2023-11-09] MEDS ORDERED: FAMOTIDINE 20 MG/2 ML VIAL IV ONE (09:00)
[2023-11-09] MEDS ORDERED: NA CHLORIDE 0.9% 1,000 ML ONE ×3 (09:00→10:13)
[2023-11-09] MEDS ORDERED: HYDROMORPHONE HCL 1 MG/ML INJ ONE (09:00)
[2023-11-09 09:38] LABS: Specific Gravity 1.015 (1.005-1.030)
[2023-11-09 09:39] LABS: Specific Gravity 1.015 (1.005-1.030); Sqamous Epithelial <5 /HPF (None Seen); Urine Bacteria None Seen /HPF (<20); Urine Bilirubin NEGATIVE (Negative); Urine Blood Negative (Negative); Urine Clarity Turbid (Clear); Urine Color Light-Yellow (Yellow); Urine Culture Reflex Order REFLEXED; Urine Glucose NEGATIVE (Negative); Urine Ketones NEGATIVE (Negative); Urine Microscopic Reflex YN ORDER UMIC; Urine Nitrite NEGATIVE (Negative); Urine Protein NEGATIVE (Negative); Urine RBC <5 /HPF (None Seen); Urine Urobilinogen Normal (Normal); Urine WBC 20-50 /HPF (<5); Urine Yeast (Budding) Trace /HPF (None Seen); Urine pH 6.5 (5.0-7.0)
[2023-11-09 09:42] LABS: Absolute Eosinophils 0.1 K/uL (0-0.5); Absolute Lymphocytes (CBC) 1.6 K/uL (0.7-4.9); Absolute Monocytes 0.3 K/uL (0.1-1.3); Basophils % 0.9 % (0-1.3); Eosinophils % 1.9 % (0-4.4); Hematocrit 37.1 % (36.0-45.0); Lymphocytes % 31.8 % (15.3-44.8); MCH 25.4 pg (27.0-35.0); MCHC 32.2 g/dL (32.0-36.0); MPV 8.6 fL (7.6-11.3); Monocytes % 6.7 % (3.3-12.3); Neutrophils % 58.7 % (41.7-73.7); Nucleated Red Blood Cells % 0.1 % (0-0); Platelets 338 thou/uL (152-406); Red Cell Distribution Width 18.3 % (12.1-15.2)
--- NOTE | 2023-11-09 09:51 | RAD REPORT ---
EXAM DESCRIPTION: CTStone Protocol - 11/09/2023 9:27 am CLINICAL HISTORY: FLANK PAIN COMPARISON: Stone Protocol dated 11/02/2023 TECHNIQUE: CT of the abdomen and pelvis was performed. All CT scans are performed using dose optimization technique as appropriate and may include automated exposure control or mA/KV adjustment according to patient size. FINDINGS: Lower chest: Small pericardial effusion measuring up to 12 millimeters in maximal thicknes s. Liver: No acute abnormality or suspicious lesions. Biliary: No biliary ductal dilatation. Stomach: No significant focal abnormality. Duodenum: No significant focal abnormality. Pancreas: No significant abnormality. Spleen: No significant abnormality. Adrenal: No suspicious lesions. Kidney/ureter: Mild right-sided hydroureteronephrosis. Calcification along the course of the right di stal ureter measuring 4 millimeters is again identified and in similar position. This is presumably a distal ureteral stone. Question bilateral medullary nephrocalcinosis. Punctate renal calculi may be present. Retroperitoneum: No retroperitoneal adenopathy. Vascular: No aneurysm. Bowel: Normal appendix.. Peritoneum: Small volume of pleural free fluid. Bladder: Grossly unremarkable. Reproductive: No adnexal masses. Bones: No acute fracture. Other: n/a IMPRESSION: Mild right-sided hydroureteronephrosis secondary to a 4 mm stone in the right distal ure ter. Hyperdense renal pyramids bilaterally may reflect medullary nephrocalcinosis. Tiny renal calculi .
[2023-11-09 09:53] LABS: Albumin 3.8 g/dL (3.4-5.0); Albumin/Globulin Ratio 0.8 (1.1-1.8); Bilirubin Total 0.3 mg/dL (0.2-1.0); Globulin 4.6 g/dL (2.3-3.5); Protein, Total 8.4 g/dL (6.4-8.2)
[2023-11-09] MEDS ORDERED: TAMSULOSIN 0.4 MG SR CAP ONE (10:13)
[2023-11-09] MEDS ORDERED: SMZ./TMP. 800/160 MG TABLET ONE (10:13)
[2023-11-09] MEDS ORDERED: Levofloxacin500mg IV 500 MG/100 ML BAG IV ONE (10:13)
--- NOTE | 2023-11-09 10:15 | ER ---
Nurse's Notes [facility] Name: Bon Riggins Age: 43 yrs Sex: Female : 1980 Arrival Date: 11/09/2023 Time: 08:32 Bed 5 Private MD: Diagnosis: Hydronephrosis with renal and ureteral calculous obstruction-4 mm right uvj;UTI/ Urinary tract infection, site not specified Presentation: 11/08 08:44 Chief complaint: Chief complaint: Patient states: right flank pain x 2 weeks, worse aa5 since , reports being seen here last week for kidney stone. 08:44 Coronavirus screen: At this time, the client does not indicate any symptoms associated aa5 with coronavirus-19. Ebola Screen: Patient denies travel to an Ebola-affected area in the 21 days before illness onset. Initial Sepsis Screen: Does the patient meet any 2 criteria? No. Patient's initial sepsis screen is negative. Does the patient have a suspected source of infection? No. Patient's initial sepsis screen is negative. Risk Assessment: Do you want to hurt yourself or someone else? Patient reports no desire to harm self or others. Onset of symptoms was October 2023. 08:44 Acuity: CARMENZA 3 aa5 08:44 Method Of Arrival: Ambulatory aa5 Triage Assessment: 08:45 General: Appears in no apparent distress. uncomfortable, Behavior is calm, cooperative, ar6 appropriate for age. Pain: Complains of pain in back Pain currently is 6 out of 10 on a pain scale. Pain began 2-3 days ago. Is intermittent. EENT: Oral mucosa is moist. Neuro: Level of Consciousness is awake, alert, obeys commands. Cardiovascular: Capillary refill < 3 seconds. Respiratory: Airway is patent. GI: Abdomen is flat, non-distended. : Urine is cloudy. Derm: Skin is intact, is healthy with good turgor, Skin is dry, Skin is pink, warm \T\ dry. Musculoskeletal: No signs and/or symptoms reported regarding the musculoskeletal system. Historical: - Allergies: 08:43 imipenem-cilastatin; hb 08:43 Imitrex; hb 08:43 IV Contrast; hb - PMHx: 08:43 Asthma; hyperthyroidism; kidney disease; Kidney stone; SVT; hb - PSHx: 08:43 Thyroidectomy; hb - Immunization history:: Adult Immunizations unknown. - Infectious Disease History:: Denies. - Social history:: Smoking status: Patient reports the use of cigarette tobacco products, cigars. Screenin:44 [facility] ED Fall Risk Assessment (Adult) History of falling in the last 3 months, hb including since admission No falls in past 3 months (0 pts) Confusion or Disorientation No (0 pts) Intoxicated or Sedated No (0 pts) Impaired Gait No (0 pts) Mobility Assist Device Used No (0 pt) Altered Elimination No (0 pt) Score/Fall Risk Level 0 - 2 = Low Risk Oriented to surroundings, Maintained a safe environment, Educated pt \T\ family on fall prevention, incl call for assistance when getting out of bed. Abuse screen: Denies threats or abuse. Denies injuries from another. Nutritional screening: No deficits noted. Tuberculosis screening: No symptoms or risk factors identified. Assessment: 09:09 General: Appears in no apparent distress. Behavior is calm, cooperative. Pain: Pain hb currently is 7 out of 10 on a pain scale. Neuro: Level of Consciousness is awake, alert, obeys commands, Oriented to person, place, time, situation. Cardiovascular: Patient's skin is warm and dry. Respiratory: Respiratory effort is even, unlabored, Respiratory pattern is regular, symmetrical. GI: Reports nausea, right flank pain. : No signs and/or symptoms were reported regarding the genitourinary system. EENT: No signs and/or symptoms were reported regarding the EENT system. Derm: Skin is pink, warm \T\ dry. Musculoskeletal: No signs and/or symptoms reported regarding the musculoskeletal system. 10:15 Reassessment: Patient appears in no apparent distress at this time. Patient and/or hb family updated on plan of care and expected duration. Pain level reassessed. Patient is alert, oriented x 3, equal unlabored respirations, skin warm/dry/pink. 10:45 Reassessment: d/c once fluids once IV completed. ar6 11:50 Reassessment: Patient appears in no apparent distress at this time. No changes from hb previously documented assessment. Patient and/or family updated on plan of care and expected duration. Pain level reassessed. Patient states symptoms have improved. 12:00 Reassessment: Discharge pending completion of IV fluids/antibiotics. hb Vital Signs: 08:44 BP 157 / 99; Pulse 78; Resp 18 S; Temp 97.6(TE); Pulse Ox 100% on R/A; Weight 102.06 kg aa5 (R); Height 5 ft. 5 in. (R); Pain 6/10; 10:00 BP 150 / 86; Pulse 97; Resp 18; Pulse Ox 100% on R/A; ar6 12:00 BP 136 / 78; Pulse 81; Resp 15; Pulse Ox 100% on R/A; hb 08:44 Body Mass Index 37.44 (102.06 kg, 165.1 cm) aa5 08:44 Pain Scale: Adult aa5 ED Course: 08:35 Patient arrived in ED. mg5 08:38 Junior Miller MD is Attending Physician. roger 08:44 Arm band placed on. hb 08:44 Patient has correct armband on for positive identification. Bed in low position. Call hb light in reach. 08:47 Triage completed. aa5 08:57 Bety Diaz RN is Primary Nurse. hb 09:02 Inserted saline lock: 20 gauge in right antecubital area, using aseptic technique. hb ,using aseptic technique. by Emerald ZUNIGA Blood collected. Flushed with 10 mL NS. 09:09 Provided Education on: medications, tests, result times, use of call light. hb 09:12 CBC with Diff Sent. ar6 09:12 CMP Sent. ar6 09:12 Lipase Sent. ar6 09:12 Test, Urine Sent. ar6 09:12 Urinalysis w/ reflexes Sent. ar6 09:13 Urine Culture Sent. ar6 09:29 CT Stone Protocol In Process Unspecified. EDMS 10:14 Prasanth Guzman MD is Referral Physician. roger 12:00 Prasanth Guzman MD is Referral Physician. roger 12:28 No provider procedures requiring assistance completed. IV discontinued, intact, hb bleeding controlled, No redness/swelling at site. Pressure dressing applied. Administered Medications: 08:58 Not Given (Duplicate Order): morphineor iv 4 mg IVP once over 4 mins roger 09:09 Drug: NS 0.9% IV 1000 ml IV at 1 bolus Per protocol; 1000 mL bolus Route: IV; Rate: 1 hb bolus; Site: right antecubital; 09:55 Follow up: Response: No adverse reaction; IV Status: Completed infusion; IV Intake: ar6 1000ml 11:00 Follow up: Response: No adverse reaction; IV Status: Completed infusion; IV Intake: ld1 1000ml 09:09 Drug: Famotidine IVP 20 mg IVP once; dilute with 10 mL 0.9% NaCl; give over 2 minutes hb Route: IVP; Site: right antecubital; 09:55 Follow up: Response: No adverse reaction ar6 12:01 Follow up: Response: No adverse reaction ld1 09:09 Drug: Ondansetron IVP 4 mg IVP once; over 2 minutes Route: IVP; Site: right antecubital;hb 09:25 Follow up: Response: No adverse reaction ar6 12:01 Follow up: Response: No adverse reaction ld1 09:09 Drug: HYDROmorphone IVP 1 mg IVP once Route: IVP; Site: right antecubital; hb 09:25 Follow up: Response: No adverse reaction; Pain is decreased ar6 12:01 Follow up: Response: No adverse reaction ld1 10:18 Drug: NS 0.9% IV 1000 ml IV at 1 bolus Per protocol; 1000 mL bolus Route: IV; Rate: 1 ld1 bolus; Site: right antecubital; 12:01 Follow up: Response: No adverse reaction; IV Status: Completed infusion; IV Intake: ld1 1000ml 10:18 Drug: levofloxacin IVPB 500 mg 100 ml IVPB once over 60 mins Volume: 100 ml; Route: ld1 IVPB; Infused Over: 60 mins; Site: right antecubital; 10:30 Follow up: Response: No adverse reaction; IV Status: Completed infusion; IV Intake: ar6 1000ml 12:00 Follow up: Response: No adverse reaction; IV Status: Completed infusion; IV Intake: ld1 100ml 10:18 Drug: Trimethoprim-Sulfamethoxazole PO (160 mg-800 mg (DS) 1 tablet PO once Route: PO; ld1 10:58 Follow up: Response: No adverse reaction ar6 12:00 Follow up: Response: No adverse reaction ld1 10:18 Drug: Flomax PO 0.4 mg PO once Route: PO; ld1 12:00 Follow up: Response: No adverse reaction ld1 10:37 Drug: Ketorolac IVP 15 mg IVP once Route: IVP; Site: right antecubital; ld1 11:07 Follow up: Response: No adverse reaction; Pain is decreased ar6 12:00 Follow up: Response: No adverse reaction ld1 Medication: 08:44 VIS not applicable for this client. hb Intake: 09:55 IV: 1000ml; Total: 1000ml. ar6 10:30 IV: 1000ml; Total: 2000ml. ar6 11:00 IV: 1000ml; Total: 3000ml. ld1 12:00 IV: 100ml; Total: 3100ml. ld1 12:01 IV: 1000ml; Total: 4100ml. ld1 Outcome: 10:14 Discharge ordered by . roger 12:00 Discharge ordered by . roger 12:30 Patient left the ED. hb 12:32 Discharged to home ambulatory, hb 12:32 Condition: stable 12:32 Discharge instructions given to patient, Instructed on discharge instructions, follow up and referral plans. medication usage, Demonstrated understanding of instructions, follow-up care, medications, Prescriptions given X X 6 Signatures: Dispatcher [employer] EDMS Junior Miller MD MD cha Calderon, Audri RN RN aa5 Bety Diaz RN RN Malena Gong RN RN [email or web address] Cyndi Anne mg5 Emerald Guzman, RN RN ar6 Corrections: (The following items were deleted from the chart) 08:43 08:43 Allergies: dye; hb hb 08:47 08:44 Chief complaint: aa5 aaLuz
--- NOTE | 2023-11-09 10:15 | EDPHYS ---
Physician Documentation [facility] Name: Bon Riggins Age: 43 yrs Sex: Female : 1980 Arrival Date: 11/09/2023 Time: 08:32 Bed 5 Private MD: ED Physician Junior Miller HPI: 11/08 09:29 This 43 yrs old Black Female presents to ER via Ambulatory with complaints of Low Back roger Pain. 09:29 The patient presents with pain that is acute, with no known mechanism of injury. The roger symptoms are located in the right mid back and right low back. Location: right mid back and right low back. The problem was sustained right uvj 4 mm. Modifying factors: The patient symptoms are alleviated by nothing, the patient symptoms are aggravated by any movement, bending, nothing. Associated signs and symptoms: The patient has no apparent associated signs or symptoms. Severity of symptoms: At their worst the symptoms were moderate, in the emergency department the symptoms are unchanged. The patient has experienced similar episodes in the past, multiple times. Historical: - Allergies: 08:43 imipenem-cilastatin; hb 08:43 Imitrex; hb 08:43 IV Contrast; hb - PMHx: 08:43 Asthma; hyperthyroidism; kidney disease; Kidney stone; SVT; hb - PSHx: 08:43 Thyroidectomy; hb - Immunization history:: Adult Immunizations unknown. - Infectious Disease History:: Denies. - Social history:: Smoking status: Patient reports the use of cigarette tobacco products, cigars. ROS: 09:30 Constitutional: Negative for fever, chills, and weight loss, Eyes: Negative for injury, roger pain, redness, and discharge, ENT: Negative for injury, pain, and discharge, Neck: Negative for injury, pain, and swelling, Cardiovascular: Negative for chest pain, palpitations, and edema, Respiratory: Negative for shortness of breath, cough, wheezing, and pleuritic chest pain, : Negative for injury, bleeding, discharge, and swelling, MS/Extremity: Negative for injury and deformity, Skin: Negative for injury, rash, and discoloration, Neuro: Negative for headache, weakness, numbness, tingling, and seizure, Psych: Negative for depression, anxiety, suicide ideation, homicidal ideation, and hallucinations, Allergy/Immunology: Negative for hives, rash, and allergies, Endocrine: Negative for neck swelling, polydipsia, polyuria, polyphagia, and marked weight changes, Hematologic/Lymphatic: Negative for swollen nodes, abnormal bleeding, and unusual bruising, 09:30 Abdomen/GI: Positive for abdominal pain, nausea and vomiting, of the posterior aspect of right lateral abdomen, anterior aspect of right lateral abdomen and right lower quadrant, Exam: 09:30 Constitutional: This is a well developed, well nourished patient who is awake, alert, roger and in no acute distress. Head/Face: Normocephalic, atraumatic. Eyes: Pupils equal round and reactive to light, extra-ocular motions intact. Lids and lashes normal. Conjunctiva and sclera are non-icteric and not injected. Cornea within normal limits. Periorbital areas with no swelling, redness, or edema. ENT: Nares patent. No nasal discharge, no septal abnormalities noted. Tympanic membranes are normal and external auditory canals are clear. Oropharynx with no redness, swelling, or masses, exudates, or evidence of obstruction, uvula midline. Mucous membranes moist. Neck: Trachea midline, no thyromegaly or masses palpated, and no cervical lymphadenopathy. Supple, full range of motion without nuchal rigidity, or vertebral point tenderness. No Meningismus. Chest/axilla: Normal chest wall appearance and motion. Nontender with no deformity. No lesions are appreciated. Cardiovascular: Regular rate and rhythm with a normal S1 and S2. No gallops, murmurs, or rubs. Normal PMI, no JVD. No pulse deficits. Respiratory: Lungs have equal breath sounds bilaterally, clear to auscultation and percussion. No rales, rhonchi or wheezes noted. No increased work of breathing, no retractions or nasal flaring. Abdomen/GI: Soft, non-tender, with normal bowel sounds. No distension or tympany. No guarding or rebound. No evidence of tenderness throughout. Back: No spinal tenderness. No costovertebral tenderness. Full range of motion. Skin: Warm, dry with normal turgor. Normal color with no rashes, no lesions, and no evidence of cellulitis. MS/ Extremity: Pulses equal, no cyanosis. Neurovascular intact. Full, normal range of motion. Neuro: Awake and alert, GCS 15, oriented to person, place, time, and situation. Cranial nerves II-XII grossly intact. Motor strength 5/5 in all extremities. Sensory grossly intact. Cerebellar exam normal. Normal gait. Psych: Awake, alert, with orientation to person, place and time. Behavior, mood, and affect are within normal limits. Vital Signs: 08:44 BP 157 / 99; Pulse 78; Resp 18 S; Temp 97.6(TE); Pulse Ox 100% on R/A; Weight 102.06 kg aa5 (R); Height 5 ft. 5 in. (R); Pain 6/10; 10:00 BP 150 / 86; Pulse 97; Resp 18; Pulse Ox 100% on R/A; ar6 12:00 BP 136 / 78; Pulse 81; Resp 15; Pulse Ox 100% on R/A; hb 08:44 Body Mass Index 37.44 (102.06 kg, 165.1 cm) aa 08:44 Pain Scale: Adult aa5 MDM: 08:38 Patient medically screened. [facility] 09:31 Differential diagnosis: sciatica, UTI. Data reviewed: vital signs, nurses notes, [facility] radiologic studies, CT scan. Consideration of Admission/Observation Escalation of care including admission/observation considered. I considered the following discharge prescriptions or medication management in the emergency department Medications were administered in the Emergency Department. See MAR. Independent interpretation of the following test(s) in the Emergency Department CT Scan: My interpretation is ct stone. Test considered but Not performed: Labs: . CT: ct stone. Care significantly affected by the following chronic conditions: Obesity, asthma,svt, kidney stone. 11/08 08:55 Order name: CBC with Diff; Complete Time: 09:57 [facility] 11/08 08:55 Order name: CMP; Complete Time: 09:57 [facility] 11/08 08:55 Order name: Lipase; Complete Time: 09:57 [facility] 11/08 08:55 Order name: Test, Urine; Complete Time: 09:57 [facility] 11/08 08:55 Order name: Urinalysis w/ reflexes; Complete Time: 09:57 [facility] 11/08 08:55 Order name: Urine Culture [facility] 11/08 08:55 Order name: CT Stone Protocol; Complete Time: 09:57 [facility] 11/08 08:55 Order name: IV Saline Lock; Complete Time: 09:01 [facility] 11/08 08:55 Order name: Labs collected and sent; Complete Time: 09:01 roger Administered Medications: 08:58 Not Given (Duplicate Order): morphineor iv 4 mg IVP once over 4 mins roger 09:09 Drug: NS 0.9% IV 1000 ml IV at 1 bolus Per protocol; 1000 mL bolus Route: IV; Rate: 1 hb bolus; Site: right antecubital; :55 Follow up: Response: No adverse reaction; IV Status: Completed infusion; IV Intake: ar6 1000ml 11:00 Follow up: Response: No adverse reaction; IV Status: Completed infusion; IV Intake: ld1 1000ml 09:09 Drug: Famotidine IVP 20 mg IVP once; dilute with 10 mL 0.9% NaCl; give over 2 minutes hb Route: IVP; Site: right antecubital; Follow up: Response: No adverse reaction ar6 12:01 Follow up: Response: No adverse reaction ld1 09:09 Drug: Ondansetron IVP 4 mg IVP once; over 2 minutes Route: IVP; Site: right antecubital;hb 09:25 Follow up: Response: No adverse reaction ar6 12:01 Follow up: Response: No adverse reaction ld1 09:09 Drug: HYDROmorphone IVP 1 mg IVP once Route: IVP; Site: right antecubital; hb 09:25 Follow up: Response: No adverse reaction; Pain is decreased ar6 12:01 Follow up: Response: No adverse reaction ld1 10:18 Drug: NS 0.9% IV 1000 ml IV at 1 bolus Per protocol; 1000 mL bolus Route: IV; Rate: 1 ld1 bolus; Site: right antecubital; 12:01 Follow up: Response: No adverse reaction; IV Status: Completed infusion; IV Intake: ld1 1000ml 10:18 Drug: levofloxacin IVPB 500 mg 100 ml IVPB once over 60 mins Volume: 100 ml; Route: ld1 IVPB; Infused Over: 60 mins; Site: right antecubital; 10:30 Follow up: Response: No adverse reaction; IV Status: Completed infusion; IV Intake: ar6 1000ml 12:00 Follow up: Response: No adverse reaction; IV Status: Completed infusion; IV Intake: ld1 100ml 10:18 Drug: Trimethoprim-Sulfamethoxazole PO (160 mg-800 mg (DS) 1 tablet PO once Route: PO; ld1 10:58 Follow up: Response: No adverse reaction ar6 12:00 Follow up: Response: No adverse reaction ld1 10:18 Drug: Flomax PO 0.4 mg PO once Route: PO; ld1 12:00 Follow up: Response: No adverse reaction ld1 10:37 Drug: Ketorolac IVP 15 mg IVP once Route: IVP; Site: right antecubital; ld1 11:07 Follow up: Response: No adverse reaction; Pain is decreased ar6 12:00 Follow up: Response: No adverse reaction ld1 Disposition Summary: 11/09/23 12:00 Discharge Ordered Notes: Location: Home(11/09/23 12:00) roger Problem: new(11/09/23 12:00) roger Symptoms: have improved(11/09/23 12:00) roger Condition: Stable(11/09/23 12:00) roger Diagnosis - Hydronephrosis with renal and ureteral calculous obstruction - 4 mm right roger uvj(11/09/23 12:00) - UTI/ Urinary tract infection, site not specified(11/09/23 12:00) roger Followup: roger - With: Private Physician - When: 2 - 3 days - Reason: Recheck today's complaints, Continuance of care, Re-evaluation by your physician Followup: roger - With: Prasanth Guzman MD - When: 2 - 3 days - Reason: Recheck today's complaints, Re-evaluation by your physician Discharge Instructions: - Discharge Summary Sheet roger - Kidney Stones roger - Urinary Tract Infection, Adult roger - Kidney Stones, [id number] roger - Urinary Tract Infection, Adult, [id number] roger - Hydronephrosis roger - and Returning to Work ar6 Forms: - Medication Reconciliation Form roger - Antibiotic Education roger - Prescription Opioid Use roger - Patient Portal Instructions roger - Leadership Thank You Letter roger - Work release form ar6 Prescriptions: - Flomax 0.4 mg Oral capsule - take 1 capsule ORAL route every evening; 21 capsule; Refills: 0, Product roger Selection Permitted - acetaminophen-codeine 300-30 mg Oral tablet - take 2 tablet ORAL route every 6 hours as needed for pain; 20 tablet; Refills: roger 0, Product Selection Permitted - ondansetron 4 mg Oral Tablet,disintegrating - take 1 tablet ORAL route every 8-12 hours for 5 days; 20 tablet; Refills: 0, roger Product Selection Permitted - ketorolac 10 mg Oral tablet - take 1 tablet ORAL route 3 times per day for 3 days as needed for pain; 9 roger tablet; Refills: 0, Product Selection Permitted - Bactrim DS 800-160 mg Oral Tablet - take 1 tablet ORAL route every 12 hours for 7 days; 14 tablet; Refills: 0, roger Product Selection Permitted - levofloxacin 500 mg Oral tablet - take 1 tablet ORAL route once daily for 7 days; 7 tablet; Refills: 0, Product roger Selection Permitted Signatures: Dispatcher [employer] EDJunior Edwards MD MD cha Calderon, Audri RN RN aa5 Bety Diaz RN RN Malena Gong RN RN ld1 Emerald Guzman RN ar6 Corrections: (The following items were deleted from the chart) 08:43 08:43 Allergies: dye; hb hb 08:56 08:55 Stone Protocol+CT.RAD.BRZ ordered. EDMS EDMS 12:00 10:14 Home roger roger 12:00 10:14 [facility] 12:00 10:14 have improved roger roger 12:00 10:14 Stable roger roger 12:00 10:14 Hydronephrosis with renal and ureteral calculous obstruction - 4 mm right uvj [facility] 12:00 10:14 UTI/ Urinary tract infection, site not specified [facility]
[2023-11-09] MEDS ORDERED: KETOROLAC 30 MG/ML INJ ONE (10:27)
[2023-11-09 13:02] VITALS: TEMP 97.6; O2SAT 100
[2023-11-09 13:07] VITALS: BP 150/86
== END 2023-11-09 12:30 | disposition home or self-care (01) ==
LOC: ER 08:32
DX: N13.2 Hydronephrosis with renal and ureteral calculous obstruction (principal); N39.0 Urinary tract infection, site not specified; Z87.442 Personal history of urinary calculi; Z72.0 Tobacco use
CPT/HCPCS: 96361; 87088; 85025; 81001; 87086; 36415; 81025; 83690; 80053; 76377; 74176; 96375; 96374; 99284; J1170; J2405; J7030 ×3

== ENCOUNTER 2023-12-04 14:08 | Emergency (ER) | payer OTHER ==
[2023-12-04] MEDS ORDERED: KETOROLAC 30 MG/ML INJ ONE ×2 (16:13→18:53)
[2023-12-04] MEDS ORDERED: ONDANSETRON 4 MG/2 ML VIAL ONE (16:13)
[2023-12-04 16:14] LABS: Absolute Basophils 0.1 K/uL (0-0.5); Absolute Eosinophils 0.1 K/uL (0-0.5); Absolute Lymphocytes (CBC) 1.7 K/uL (0.7-4.9); Absolute Monocytes 0.5 K/uL (0.1-1.3); Eosinophils % 1.6 % (0-4.4); Hematocrit 41.7 % (36.0-45.0); Hemoglobin 13.6 g/dL (12.0-15.0); Lymphocytes % 32.2 % (15.3-44.8); MCH 26.2 pg (27.0-35.0); MCHC 32.7 g/dL (32.0-36.0); MCV 80.3 fL (80-100); MPV 8.4 fL (7.6-11.3); Monocytes % 9.2 % (3.3-12.3); Nucleated Red Blood Cells % 0.1 % (0-0); Platelets 339 thou/uL (152-406); Red Cell Distribution Width 17.9 % (12.1-15.2)
[2023-12-04] MEDS ORDERED: DICYCLOMINE HCL 20 MG/2 ML AMP IM ONE (16:14)
[2023-12-04] MEDS ORDERED: NA CHLORIDE 0.9% 1,000 ML ONE ×2 (16:14→18:50)
[2023-12-04 16:30] LABS: ALT/SGPT 22 U/L (13-56); Albumin/Globulin Ratio 0.8 (1.1-1.8); Alkaline Phosphatase 60 U/L (45-117); Anion Gap 10.8 mEq/L (5.0-15.0); BUN Blood Urea Nitrogen 13 mg/dL (7-18); Bicarbonate 29 mEq/L (21-32); Bilirubin Total 0.8 mg/dL (0.2-1.0); Globulin 5.3 g/dL (2.3-3.5); Glomerular Filtration Rate 52 ml/min (=/>90); Glucose Level 118 mg/dL (74-106); Lipase 28 U/L (13-75); Magnesium 1.9 mg/dL (1.6-2.4); Potassium 3.8 mEq/L (3.5-5.1); Protein, Total 9.3 g/dL (6.4-8.2); Sodium Level 135 mEq/L (136-145); Troponin High Sensitivity 3.7 pg/mL (<58.9)
[2023-12-04 16:31] LABS: AST/SGOT < 10 U/L (15-37)
[2023-12-04 17:12] LABS: Specific Gravity 1.022 (1.005-1.030)
[2023-12-04 17:15] LABS: Calcium Oxalate Crystals- Ur Few /HPF (None Seen); Specific Gravity 1.022 (1.005-1.030); Urine Bacteria <20 /HPF (<20); Urine Bilirubin NEGATIVE (Negative); Urine Blood Negative (Negative); Urine Clarity Extremely Turbid (Clear); Urine Color Yellow (Yellow); Urine Culture Reflex Order NOT NEEDED; Urine Glucose NEGATIVE (Negative); Urine Ketones NEGATIVE (Negative); Urine Microscopic Reflex YN ORDER UMIC; Urine Mucus 1+ /HPF (None Seen); Urine Nitrite NEGATIVE (Negative); Urine Protein TRACE (Negative); Urine RBC <5 /HPF (None Seen); Urine Urobilinogen Normal (Normal); Urine WBC <5 /HPF (<5); Urine pH 5.5 (5.0-7.0)
--- NOTE | 2023-12-04 18:36 | RAD REPORT ---
EXAM DESCRIPTION: CT - Abdomen Pelvis Wo Contrast - 12/04/2023 6:00 pm CLINICAL HISTORY: Abdominal pain COMPARISON: October 2023 TECHNIQUE: Computed axial tomography of the abdomen and pelvis was obtained. IV and oral contrast we re not requested. All CT scans are performed using dose optimization technique as appropriate and may include automated exposure control or mA/KV adjustment according to patient size. FINDINGS: The evaluation of solid organs, vessels and bowel is limited secondary to the lack of con trast administration. Relatively small pericardial effusion unchanged. Medullary sponge kidney bilaterally. Borderline right hydronephrosis. 4 millimeter calculus distal right pelvis unchanged. The liver, spleen, pancreas, and adrenals appear grossly normal. The appendix is normal. There is no evidence of diverticulitis. IMPRESSION: Medullary sponge kidney Borderline right hydronephrosis. A 4 millimeter calculus distal right pelvis is unchanged in position . This probably lies within the distal right ureter. However, the right ureter is not well visualized at this level and it could represent a phlebolith. Retrograde pyelogram may be helpful for further e valuation
--- NOTE | 2023-12-04 18:52 | ER ---
Nurse's Notes [facility] Name: Bon Riggins Age: 43 yrs Sex: Female : 1980 Arrival Date: 12/04/2023 Time: 14:08 Bed 11 Private MD: Diagnosis: Hydronephrosis with renal and ureteral calculous obstruction-4 mm distal right ureter, medulary sponge kidney;Vomiting Presentation: 12/03 14:51 Chief complaint: Patient states: had kidney stone on , this past week I had a iw lithotripsy , took her Ozempic Saturday, has been vomiting, diarrhea, headache since then. Coronavirus screen: At this time, the client does not indicate any symptoms associated with coronavirus-19. Ebola Screen: No symptoms or risks identified at this time. Initial Sepsis Screen: Does the patient meet any 2 criteria? No. Patient's initial sepsis screen is negative. Does the patient have a suspected source of infection? No. Patient's initial sepsis screen is negative. 14:51 Method Of Arrival: Ambulatory iw 14:51 Acuity: CAMRENZA 3 iw 14:53 Risk Assessment: Do you want to hurt yourself or someone else? Patient reports no iw desire to harm self or others. 16:37 Onset of symptoms is unknown. 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 - Infectious Disease History:: Denies. - Social history:: Smoking status: Patient denies any tobacco usage or history of. Screenin:36 Abuse screen: Denies threats or abuse. Nutritional screening: No deficits noted. ap3 Tuberculosis screening: No symptoms or risk factors identified. 16:36 [facility] ED Fall Risk Assessment (Adult) History of falling in the last 3 months, ap3 including since admission No falls in past 3 months (0 pts) Confusion or Disorientation No (0 pts) Intoxicated or Sedated No (0 pts) Impaired Gait No (0 pts) Mobility Assist Device Used No (0 pt) Altered Elimination No (0 pt) Score/Fall Risk Level 0 - 2 = Low Risk Oriented to surroundings, Maintained a safe environment, Educated pt \T\ family on fall prevention, incl call for assistance when getting out of bed, Assessed \T\ reinforced patient's understanding of fall precautions, Hourly rounding (assess needs \T\ fall precautionary measures) done, Used ambulatory aids as needed (educated on \T\ assisted with), Used gait belt as appropriate. Assessment: 16:35 General: Appears uncomfortable, Behavior is calm, cooperative, appropriate for age. ap3 Pain: Complains of pain in abdomen. Neuro: Level of Consciousness is awake, alert, obeys commands, Oriented to person, place, time, situation, Appropriate for age. Cardiovascular: Patient's skin is warm and dry. Respiratory: Airway is patent Respiratory effort is even, unlabored, Respiratory pattern is regular, symmetrical. GI: Abdomen is flat, Reports lower abdominal pain, upper abdominal pain, cramping, diarrhea, gaseousness, nausea, vomiting. 19:00 General: Discharge delayed to complete IV fluids. me1 Vital Signs: 14:51 BP 130 / 94; Pulse 86; Resp 16; Temp 96.8; Pulse Ox 100% ; iw 14:53 Weight 105.69 kg; Height 5 ft. 5 in. ; Pain 8/10; iw 19:06 BP 147 / 72; Pulse 73; Resp 17; Temp 97.2(TE); Pulse Ox 100% ; ap3 20:00 BP 164 / 97; Pulse 76; Resp 16; Pulse Ox 100% ; me1 20:41 BP 164 / 97; Pulse 70; Resp 16; Temp 98.1; Pulse Ox 100% ; me1 14:53 Body Mass Index 38.77 (105.69 kg, 165.1 cm) iw 14:53 Pain Scale: Adult iw ED Course: 14:11 Patient arrived in ED. ra3 14:22 Virginia Moore MD is Attending Physician. sd2 14:53 Triage completed. iw 14:53 Arm band placed on. iw 16:02 Lipase Sent. bc6 16:02 Magnesium Sent. bc6 16:02 CMP Sent. bc6 16:02 CBC with Diff Sent. bc6 16:02 Initial lab(s) drawn, by me, sent to lab. Inserted saline lock: 22 gauge in right bc6 antecubital area, using aseptic technique. Blood collected. Flushed with 10 mL NS. 16:36 Patient has correct armband on for positive identification. Call light in reach. Pulse ap3 ox on. NIBP on. 16:37 No provider procedures requiring assistance completed. ap3 16:46 Tana Barlow, EFRAIN is Primary Nurse. ap3 18:01 CT Abd/Pelvis - Without Contrast In Process Unspecified. EDMS 18:08 Attending Physician role handed off by Virginia Moore MD [facility] 18:08 Junior Miller MD is Attending Physician. [facility] 19:00 Provided Education on: POC. Verbalized understanding. . me1 20:41 IV discontinued, intact, bleeding controlled, No redness/swelling at site. Pressure me1 dressing applied. Administered Medications: 16:36 Drug: NS 0.9% IV 1000 ml IV at 1 bolus Per protocol; 1000 mL bolus Route: IV; Rate: 1 ap3 bolus; Site: right antecubital; 20:44 Follow up: Response: No adverse reaction; IV Status: Completed infusion; IV Intake: me1 1000ml 16:36 Drug: Ondansetron IVP 4 mg IVP once; over 2 minutes Route: IVP; Site: right antecubital;ap3 19:05 Follow up: Response: No adverse reaction; Pain is decreased ap3 16:36 Drug: Ketorolac IVP 15 mg IVP once Route: IVP; Site: right antecubital; ap3 19:05 Follow up: Response: No adverse reaction ap3 16:57 Drug: Dicyclomine IM 20 mg IM once Route: IM; Site: right vastus lateralis; ap3 19:05 Follow up: Response: No adverse reaction ap3 18:49 CANCELLED (Duplicate Order): [id number] mg 200 ml IVPB once over 60 mins roger 19:04 Not Given (Patient Refused): fentanyl (pf)25 mcg IVP once ap3 19:04 Not Given (Patient Refused): fentanyl (pf)25 mcg IVP once ap3 19:04 Drug: Ciprofloxacin PO 500 mg PO once Route: PO; ap3 19:41 Follow up: Response: No adverse reaction me1 19:07 Not Given (Patient Refused): flomax0.4 mg PO once ap3 19:18 Drug: NS 0.9% IV 1000 ml IV at 1 bolus Per protocol; 1000 mL bolus Route: IV; Rate: 1 ap3 bolus; Site: right antecubital; 20:43 Follow up: Response: No adverse reaction; IV Status: Completed infusion; IV Intake: me1 1000ml 20:40 Drug: Ketorolac IVP 15 mg IVP once Route: IVP; Site: right antecubital; me1 20:44 Follow up: Response: No adverse reaction; Pain is decreased me1 Medication: 20:41 VIS not applicable for this client. me1 Intake: 20:43 IV: 1000ml; Total: 1000ml. me1 20:44 IV: 1000ml; Total: 2000ml. me1 Outcome: 18:52 Discharge ordered by . roger 20:46 Discharged to home ambulatory, with significant other, [facility] 20:46 Condition: stable 20:46 Discharge instructions given to patient, significant other, Instructed on discharge instructions, follow up and referral plans. medication usage, Demonstrated understanding of instructions, follow-up care, medications, Prescriptions given X 3, 20:46 Patient left the ED. me1 Signatures: Dispatcher [employer] EDJunior Edwards MD MD cha Williams, Irene, RN Tana Mendez RN RN ap3 Dunlop, Stephanie, MD MD sd2 Carowatson, Breana bc6 Deanna Murillo RN RN me1 Ginna Reyes 3
--- NOTE | 2023-12-04 18:52 | EDPHYS ---
Physician Documentation [facility] Name: Bon Riggins Age: 43 yrs Sex: Female : 1980 Arrival Date: 12/04/2023 Time: 14:08 Bed 11 Private MD: ED Physician Junior Miller HPI: 12/03 15:09 This 43 yrs old Black Female presents to ER via Ambulatory with complaints of Vomiting. sd2 15:09 43 yo F presents with CC of vomiting and diarrhea since this past Saturday night. Reports sd2 unable to keep anything down since then. That was the first day she restarted her Ozempic following a lithotripsy she had performed on Saturday for a kidney stone. Denies fever. . 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 - Infectious Disease History:: Denies. - Social history:: Smoking status: Patient denies any tobacco usage or history of. ROS: 15:09 Constitutional: Negative for fever, chills, and weight loss, Eyes: Negative for injury, sd2 pain, redness, and discharge, Cardiovascular: Negative for chest pain, palpitations, and edema, Respiratory: Negative for shortness of breath, cough, wheezing. 15:09 : Negative for dysuria, urinary frequency, hesitancy, urgency and hematuria. MS/Extremity: Negative for injury and deformity, Skin: Negative for injury, rash, and discoloration, Neuro: Negative for headache, numbness and tingling. 15:09 Abdomen/GI: Positive for abdominal pain, nausea and vomiting, diarrhea, abdominal cramps, Exam: 15:09 Constitutional: This is a well developed, well nourished patient who is awake, alert, sd2 and in no acute distress. Head/Face: Normocephalic, atraumatic. Eyes: EOMI, normal conjunctiva bilaterally Chest/axilla: Normal chest wall appearance and motion. Nontender with no deformity. Cardiovascular: Regular rate and rhythm with a normal S1 and S2. No gallops, murmurs, or rubs. 2+ distal pulses. Respiratory: Lungs have equal breath sounds bilaterally, clear to auscultation and percussion. No rales, rhonchi or wheezes noted. No increased work of breathing, no retractions or nasal flaring. Abdomen/GI: Soft, mild generalized tenderness throughout, no rebound or guarding Skin: Warm, dry with normal turgor. Normal color with no rashes, no lesions, and no evidence of cellulitis. MS/ Extremity: Pulses equal, no cyanosis. Neurovascular intact. Full, normal range of motion. Psych: Awake, alert, with orientation to person, place and time. Behavior, mood, and affect are within normal limits. 17:10 ECG was reviewed by the Attending Physician. NSR, rate 75, no STEMI criteria sd2 Vital Signs: 14:51 BP 130 / 94; Pulse 86; Resp 16; Temp 96.8; Pulse Ox 100% ; iw 14:53 Weight 105.69 kg; Height 5 ft. 5 in. ; Pain 8/10; iw 19:06 BP 147 / 72; Pulse 73; Resp 17; Temp 97.2(TE); Pulse Ox 100% ; ap3 20:00 BP 164 / 97; Pulse 76; Resp 16; Pulse Ox 100% ; me1 20:41 BP 164 / 97; Pulse 70; Resp 16; Temp 98.1; Pulse Ox 100% ; me1 14:53 Body Mass Index 38.77 (105.69 kg, 165.1 cm) iw 14:53 Pain Scale: Adult iw MDM: 15:08 Patient medically screened. sd2 15:09 Differential diagnosis: Nonspecific abd pain, gastritis, cholecystitis, pancreatitis, sd2 appendicitis, diverticulitis, viral gastroenteritis, gastroenteritis, medication side effect among others. Data reviewed: vital signs, nurses notes, lab test result(s), EKG, radiologic studies. I considered the following discharge prescriptions or medication management in the emergency department Medications were administered in the Emergency Department. See MAR. 18:00 Transition of care: After a detail discussion of the patient's case, care is sd2 transferred to Junior Miller MD. 12/03 15:09 Order name: CBC with Diff; Complete Time: 17:18 sd2 12/03 15:09 Order name: CMP; Complete Time: 17:18 sd2 12/03 15:09 Order name: Magnesium; Complete Time: 17:18 sd12/03 15:09 Order name: Lipase; Complete Time: 17:18 12/03 15:09 Order name: Troponin High Sensitivity; Complete Time: 17:18 12/03 15:09 Order name: Urinalysis w/ reflexes; Complete Time: 17:18 sd12/03 15:09 Order name: Test, Urine; Complete Time: 17:18 sd12/03 15:09 Order name: CT Abd/Pelvis - Without Contrast; Complete Time: 18:40 sd12/03 15:09 Order name: EKG - Nurse/Tech; Complete Time: 16:36 sd2 Administered Medications: 16:36 Drug: NS 0.9% IV 1000 ml IV at 1 bolus Per protocol; 1000 mL bolus Route: IV; Rate: 1 ap3 bolus; Site: right antecubital; 20:44 Follow up: Response: No adverse reaction; IV Status: Completed infusion; IV Intake: me1 1000ml 16:36 Drug: Ondansetron IVP 4 mg IVP once; over 2 minutes Route: IVP; Site: right antecubital;ap3 19:05 Follow up: Response: No adverse reaction; Pain is decreased ap3 16:36 Drug: Ketorolac IVP 15 mg IVP once Route: IVP; Site: right antecubital; ap3 19:05 Follow up: Response: No adverse reaction ap3 16:57 Drug: Dicyclomine IM 20 mg IM once Route: IM; Site: right vastus lateralis; ap3 19:05 Follow up: Response: No adverse reaction ap3 18:49 CANCELLED (Duplicate Order): [id number] mg 200 ml IVPB once over 60 mins roger 19:04 Not Given (Patient Refused): fentanyl (pf)25 mcg IVP once ap3 19:04 Not Given (Patient Refused): fentanyl (pf)25 mcg IVP once ap3 19:04 Drug: Ciprofloxacin PO 500 mg PO once Route: PO; ap3 19:41 Follow up: Response: No adverse reaction me1 19:07 Not Given (Patient Refused): flomax0.4 mg PO once ap3 19:18 Drug: NS 0.9% IV 1000 ml IV at 1 bolus Per protocol; 1000 mL bolus Route: IV; Rate: 1 ap3 bolus; Site: right antecubital; 20:43 Follow up: Response: No adverse reaction; IV Status: Completed infusion; IV Intake: me1 1000ml 20:40 Drug: Ketorolac IVP 15 mg IVP once Route: IVP; Site: right antecubital; me1 20:44 Follow up: Response: No adverse reaction; Pain is decreased me1 Disposition Summary: 12/04/23 18:52 Discharge Ordered Notes: Location: Home roger Problem: new roger Symptoms: have improved roger Condition: Stable roger Diagnosis - Hydronephrosis with renal and ureteral calculous obstruction - 4 mm distal right roger ureter, medulary sponge kidney - Vomiting roger Followup: roger - With: Private Physician - When: 2 - 3 days - Reason: Recheck today's complaints, Continuance of care, Re-evaluation by your physician Discharge Instructions: - Discharge Summary Sheet roger - Kidney Stones roger - Kidney Stones, [id number] roger - Hydronephrosis roger - Vomiting, Adult roger Forms: - Medication Reconciliation Form [facility] - Antibiotic Education roger - Prescription Opioid Use roger - Patient Portal Instructions [facility] - Leadership Thank You Letter roger - Work release form me1 Prescriptions: - acetaminophen-codeine 300-30 mg Oral tablet - take 2 tablet ORAL route every 6 hours as needed for pain; 20 tablet; Refills: [facility] 0, Product Selection Permitted - ondansetron 4 mg Oral Tablet,disintegrating - take 1 tablet ORAL route every 8-10 hours for 5 days; 20 tablet; Refills: 0, [facility] Product Selection Permitted - promethazine 25 mg Oral Tablet - take 1 tablet ORAL route every 6 hours As needed; 20 tablet; Refills: 0, [facility] Product Selection Permitted Signatures: Dispatcher [employer] Junior Potts MD MD cha Williams, Irene RN Tana Mendez RN RN ap3 Dunlop, Stephanie, MD MD ct2 Deanna Murillo RN RN me1 Corrections: (The following items were deleted from the chart) 18:49 18:43 Ciprofloxacin IVPB 400 mg 200 ml IVPB once over 60 mins ordered. on license of [facility]
[2023-12-04] MEDS ORDERED: TAMSULOSIN 0.4 MG SR CAP ONE (18:53)
[2023-12-04] MEDS ORDERED: CIPROFLOXACIN HCL 500 MG TAB ONE (18:54)
[2023-12-04 21:12] VITALS: O2SAT 100
[2023-12-04 21:17] VITALS: BP 164/97
[2023-12-04 21:18] VITALS: TEMP 98.1
--- NOTE | 2023-12-09 13:07 | EKG ---
Test Date: 2023-12-04 Test Time: 16:26:29 [employer] Monitoring Technician: ALP MEASUREMENT RESULTS: Intervals: Rate: 75 MO: 162 QRSD: 80 QT: 394 QTc: 439 [place]: P: 39 MO: 162 QRS: -42 T: 65 INTERPRETIVE STATEMENTS: Normal sinus rhythm Left axis deviation Abnormal ECG No previous ECG available for comparison Electronically Signed On 12-09-23 12:52:16 CDT by Alexandre Ferguson
== END 2023-12-04 20:46 | disposition home or self-care (01) ==
LOC: ER 14:08
DX: N13.2 Hydronephrosis with renal and ureteral calculous obstruction (principal); Q61.5 Medullary cystic kidney; Z87.442 Personal history of urinary calculi
CPT/HCPCS: 96361; 93005; 85025; 81001; 36415; 83735; 81025; 84484; 83690; 80053; 74176; 96375; 96372; 96374; 99284; J0500; J2405; J7030 ×2

== ENCOUNTER 2024-01-19 21:35 | Emergency (ER) | payer OTHER ==
--- OUTSIDE RECORDS SUMMARY | 2024-01-19 21:42 | XMS REPORT | Continuity of Care Document ---
Author Name Unknown Address [address] [facility] [address] [place] [address] [facility] Address [address] [facility] [place] [address] Care Team Providers Care E Commerce Strategist Name Role Phone No MD, Pcp Primary Care Physician UnavailAnya Ren MD Attending Clinician [phone] Narciso Tolliver MD Attending Clinician [phone] NARCISO TOLLIVER Attending Clinician Unavailaugustina Argueta RNDeanna Attending Clinician Unavailaugustina sylvester Nurse, Terence Johnson Urology Attending Clinician Unavailable ANYA HERNANDEZ Attending Clinician Unavailable Samia Saldana Attending Clinician Unavailab Bj Claudio Attending Clinician Unavailable Shaq Coats Attending Clinician UnavailTerence Lao MD Attending Clinician [phone] Narciso Tolliver Attending Clinician Unavailable Brett Rodriguez Attending Clinician Unavailable Grace Castano Attending Clinician Unavailable Glen Nava Attending Clinician Unavailable Rony Hickey Attending Clinician Unavailable Ron Tipton X Attending Clinician Unavailable GC_SWHAWPRC_Lotze_P Attending Clinician UnavailMary Kay Carvalho Attending Clinician [phone] Robyn Henry Attending Clinician UnavailNarciso Carrera H Admitting Clinician Unavailable Bj Oneal Admitting Clinician Unavailable Javi Cuadra Admitting Clinician Unavailable Grace Castano Admitting Clinician Unavailable Glen Nava Admitting Clinician Unavailable Ron Tipton Admitting Clinician Unavailable UNDEFINED Admitting Clinician Unavailable GC_SWHAW[facility]_Lotze_P Admitting Clinician Unavailradha silverman KNOW, DOES_NOT Admitting Clinician Unavailable Payers Payer Name Policy Type Policy Number Effective Date Expirati on Date Source [place] [employer] [id number] 2023 00:00:00 [facility] [id number] 2021 00:00:00 Problems Condition Name Condition Details Condition Category Status Onset Date Resolution Date Last Treatment Date Treating Clinician Comments Source Type 2 diabetes mellitus without complicati on ([facility]/HCC) Type 2 diabetes mellitus without complicati on ([facility]) Disease Active 12-08 00:00: 00 Nazanin Elkins Hypertensi on Hypertensi on Disease Active 12-08 00:00: 00 Nazanin Zaldivar Epic Graves disease Graves disease Disease Active 12-08 00:00: 00 Nazanin Elkins Anxiety with depression Anxiety with depression Disease Active 12-08 00:00: 00 Nazanin Zaldivar Epic Kidney stone Kidney stone Disease Active 11-28 00:00: 00 Nazanin Zaldivar Epic Allergies, Adverse Reactions, Alerts Allergy Name Allergy Type Status Severity Reaction(s) Onset Date Inactive Date Treating Clinician Comments Source Iodinate d Contrast Media DA Active U UNKNOWN 2-20 00:00: 00 [facility] adhesive tape DA Active [place] HIVES 1-15 00:00: 00 [facility] sumatrip arana DA Active U ITCHY -15 00:00: 00 [facility] ertapene m DA Active [place] Itching 0 1-15 00:00: 00 [facility] CONTRAST DA Active [place] RASH 0 115 00:00: 00 [facility] IODINATE D CONTRAST MEDIA Drug Class Active Low Hives 2022-03 00:00: 00 [facility] Iodinate d Contrast Media Drug Allergy Active Hives, Itching 2022-03 00:00: 00 Nazanin Zaldivar Epic Adhesive Tape Drug Allergy Active Hives 0 - 00:00: 00 [facility] adhesive tape DA Active [place] HIVES 0 12-13 00:00: 00 [facility] ERTAPENE M DRUG INGREDI Active Low Hives 0 - 00:00: 00 [facility] ertapene m DA Active [place] Itching 0 9- 00:00: 00 [facility] Ertapene m Allergy to substanc e Active Hives, Itching, Palpitations , Unknown 0 9-10 00:00: 00 Nazanin Zaldivar Epic sumatrip arana DA Active MO ANXIETY 2021-0 7-07 00:00: 00 [facility] are [facility] SUMATRIP ARANA DRUG INGREDI Active Low Anxiety 0 6-08 00:00: 00 [facility] Sumatrip arana Allergy to substanc e Active Hives 0 6-08 00:00: 00 [facility] sumatrip arana DA Active U ITCHY 0 6-08 00:00: 00 [facility] Sumatrip arana Propensi ty to adverse reaction s Active Anxiety, Dizziness, Headache, Hives, Itching, Unknown 0 6-08 00:00: 00 Nazanin Elkins ALLERGIE S NOT ON FILE SYSTEMIC Active [facility] Social History Social Habit Start Date Stop Date Quantity Comments Source Gender identity 2023-06-16 05:23:40 Identifies as female gender (finding) Tresa Musella [facility] History of tobacco use [facility] smoker [facility] Sexual orientation [facility] ASSERTION Possible [facility] History of Social function 2023-03-06 00:00:00 2023-03-06 00:00:00 [facility] Tobacco use and exposure 2023-02-04 00:00:00 2023-02-04 00:00:00 Smokeless tobacco non-user [facility] Sex Assigned At 1980 00:00:00 1980 00:00:00 [facility] Smoking Status Start Date Stop Date Source Light tobacco smoker Nazanin Zaldivar [facility] Occasional tobacco smoker 2023-02-04 00:00:00 [facility] Medications Ordered Medication Name Filled Medication Name Start Date Stop Date Current Medication? Ordering Clinician Indication Dosage Frequency Signature (SIG) Comments Components Source citalopram (CeleXA) 10 MG tablet citalopram (CeleXA) 10 MG tablet 12-17 00:00: 00 Yes 10mg QD TAKE ONE (1) TABLET(S) BY MOUTH ONCE A DAY. Nazanin Zaldivar [facility] levothyroxi ne (Synthroid, Levoxyl) 125 MCG tablet levothyroxi ne (Synthroid, Levoxyl) 125 MCG tablet 11-05 00:00: 00 Yes 125ug Take 1 tablet by mouth 1 time each day at the same time. Nazanin Zaldivar [facility] losartan (Cozaar) 25 MG tablet losartan (Cozaar) 25 MG tablet 11-05 00:00: 00 Yes 25mg QD Take 1 tablet by mouth 1 time each day. Nazanin Zaldivar [facility] hydroCHLORO thiazide (HYDRODiuri l) 25 MG tablet hydroCHLORO thiazide (HYDRODiuri l) 25 MG tablet 11-04 16:17: 33 Yes 25mg Take 25 mg by mouth every morning. Nazanin Zaldivar [facility] traZODone (Desyrel) 50 MG tablet traZODone (Desyrel) 50 MG tablet 11-04 16:17: 33 Yes 50mg Take 50 mg by mouth at bedtime. Nazanin Zaldivar [facility] citalopram (CeleXA) 10 MG tablet citalopram (CeleXA) 10 MG tablet 11-04 16:17: 33 12-17 00:00 :00 No 10mg QD Take 10 mg by mouth 1 time each day. Nazanin Zaldivar [facility] Ozempic, 2 MG/DOSE, 8 MG/3ML pen-injecto r Ozempic, 2 MG/DOSE, 8 MG/3ML pen-injecto r 13 16:17: 33 12-09 00:00 :00 No 2mg Q1W Inject 2 mg under the skin every 7 days. Nazanin Elkins losartan (Cozaar) 25 MG tablet losartan (Cozaar) 25 MG tablet 11-04 00:00: 00 11-05 00:00 :00 No 25mg QD Take 1 tablet by mouth 1 time each day. Nazanin Zaldivar [facility] levothyroxi ne (Synthroid, Levoxyl) 125 MCG tablet levothyroxi ne (Synthroid, Levoxyl) 125 MCG tablet 11-04 00:00: 00 11-05 00:00 :00 No 125ug Take 1 tablet by mouth 1 time each day at the same time. Nazanin Zaldivar [facility] levothyroxi ne (Synthroid, Levoxyl) 125 MCG tablet levothyroxi ne (Synthroid, Levoxyl) 125 MCG tablet 2022-03 00:00: 00 11-04 00:00 :00 No 125ug Take 125 mcg by mouth 1 time each day at the same time. Nazanin Zaldivar [facility] losartan (Cozaar) 25 MG tablet 2022-03 12:01: 14 Yes 1{tbl} 1 tablet. [facility] Ozempic, 2 MG/DOSE, 8 MG/3ML solution pen-injecto r 2022-03 00:00: 00 Yes [facility] hydroCHLORO thiazide (HYDRODiuri l) 25 MG tablet 2022-03 00:00: 00 04-24 05:59 :00 No 25mg Take 25 mg by mouth 1 (one) time each day in the morning. [facility] citalopram (CeleXA) 10 MG tablet 2022-03 00:00: 00 Yes 10mg QD Take 10 mg by mouth 1 (one) time each day. FOR 30 DAYS [facility] albuterol 108 (90 Base) MCG/ACT inhaler 2022-03 00:00: 00 Yes TAKE 2 PUFF BY MOUTH EVERY 4 HRS NEEDED [facility] levothyroxi ne (Synthroid, Levoxyl) 125 MCG tablet 11-06 00:00: 00 Yes 1 (one) time each day at the same time. [facility] cephalexin 500 mg capsule cephalexin 500 mg capsule No cephalexin 500 mg capsule [facility] ketorolac 10 mg tablet ketorolac 10 mg tablet No ketorolac 10 mg tablet [facility] Immunizations Ordered Immunization Name Filled Immunization Name Date Status Comments Source Influenza, seasonal, injectable, preservative free Influenza, seasonal, injectable, preservative free 2023-12-09 00:00:00 Completed [facility] Vital Signs Vital Name Observation Time Observation Value Comments [facility] Systolic blood pressure 2023-12-10 08:27:00 129 mm[Hg] [facility] Diastolic blood pressure 2023-12-10 08:27:00 87 mm[Hg] [facility] Heart rate 2023-12-10 08:27:00 73 /min [facility] Systolic blood pressure 2023-12-10 08:27:00 129 mm[Hg] [facility] Diastolic blood pressure 2023-12-10 08:27:00 87 mm[Hg] [facility] Heart rate 2023-12-10 08:27:00 73 /min [facility] Systolic blood pressure 2023-02-04 18:22:00 105 mm[Hg] [facility] Diastolic blood pressure 2023-02-04 18:22:00 72 mm[Hg] [facility] Heart rate 2023-02-04 18:22:00 81 /min [facility] Body temperature 2023-02-04 18:22:00 36.78 [facility] Body height 2023-02-04 18:22:00 165.1 cm [facility] Body weight 2023-02-04 18:22:00 [facility] BMI 2023-02-04 18:22:00 34.95 kg/m2 [facility] BP Diastolic 2021-09-18 00:00:00 93 mm[Hg] [facility] Height 2021-09-18 00:00:00 65 [in_i] [facility] BMI (Body Mass Index) 2021-09-18 00:00:00 33.3 kg/m2 [facility] BP Systolic 2021-09-18 00:00:00 137 mm[Hg] [facility] Body Weight 2021-09-18 00:00:00 200 [lb_av] [facility] Procedures Procedure Date / Time Performed Performing Clinician Source CT abdomen pelvis wo IV contrast 2024-01-14 00:00:00 [facility] Musella [employer] c Urinalysis w/Reflex microscopic 2024-01-14 00:00:00 [facility] [employer] c Urine Culture 2024-01-14 00:00:00 Nazanin tovar [employer] HEMOGLOBIN A1C 2023-12-10 08:12:12 [facility] [employer] BASIC METABOLIC PANEL 2023-11-20 17:05:00 Ludin Hernandez [facility]ella [employer] COMPLETE BLOOD COUNT W/DIFF AND PLATELET 2023-11-20 17:05:00 Anya Hernandez [facility] [employer] Basic metabolic panel 2023-11-20 00:00:00 [facility] [employer] CBC and differential 2023-11-20 00:00:00 [facility] Zen [employer] Urine culture 2023-11-20 00:00:00 [facility] [id number] 2023-04-15 00:00:00 ABDYA01 [facility] [id number] 2023-04-09 00:00:00 HINPE [facility] [id number] 2022-11-24 00:00:00 KUMSA.02 [facility] [id number] 2022-11-24 00:00:00 KUMSA.02 [facility] [id number] 2022-11-21 00:00:00 HINPE [facility] [id number] 2022-11-21 00:00:00 HINPE [facility] [id number] 2021-09-29 00:00:00 WILJA.07 [facility] Encounters Start Date/Time End Date/Time Encounter Type Admission Type Attending Clinicians Care Facility Care Department Encounter ID Source 2024-01-13 00:00:00 2024-01-17 11:01:14 Telephone Anya Hernandez [facility] [id number] 350.1.13.70 8.2.7.2.686 [id number] Nazanin Zaldivar [facility] 2023-11-28 00:00:00 2023-12-29 23:52:19 Telephone Anya Hernandez [facility] [id number] 1.2.840.114 350.1.13.70 8.2.7.2.686 [id number] Nazanin tovar [facility] 2023-12-17 00:00:00 2023-12-18 08:29:45 Refill Narciso Tolliver [facility] 1.2840.114 350.1.13.70 8.2.7.2.686 [id number] Nazanin tovar [facility] 2023-12-09 14:16:07 2023-12-09 14:50:55 Outpatient Elective NARCISO TOLLIVER [facility]OUT M[facility]OUT [id number] [facility] 2023-12-09 14:00:00 2023-12-09 14:50:55 Office Visit Narciso Tolliver [facility] 1.20.114 350.1.13.70 8.2.7.2.686 [id number] Nazanin tovar [facility] 2023-11-05 00:00:00 2023-12-06 23:52:38 Telephone Anya Hernandez [place] [id number] 1.2840.114 350.1.13.70 8.2.7.2.686 [id number] [facility] 2023-11-29 13:49:21 2023-11-29 14:24:45 Outpatient MHEOUT MHEOUT [id number] [facility] 2023-11-29 13:30:00 2023-11-29 14:24:45 Clinical Support Deanna Argueta Nurse, [facility] Deanna Argueta [place] [id number] 1.2.840.114 350.1.13.70 8.2.7.2.686 [id number] Nazanin tovar [facility] 2023-11-27 16:25:34 2023-11-27 23:59:00 Outpatient ANYA HERNANDEZ EOUT EOUT [id number] [facility] 2023-11-27 11:38:00 2023-11-27 17:28:00 Outpatient ANYA HERNANDEZBL [facility] [id number] BL 2023-11-27 14:30:00 2023-11-27 15:30:00 Outside Procedure Anya Hernandez [facility] [id number] 1.2.840.114 350.1.13.70 8.2.7.2.686 [id number] [facility] 2023-11-20 00:00:00 2023-11-21 05:15:13 Orders Only Anya Hernandez [facility] 1..840.114 350.1.13.70 8.2.7.2.686 [id number] [facility] 2023-11-20 15:51:21 2023-11-20 17:08:19 Outpatient MHEOUT EOUT [id number] EOUT 2023-11-20 15:30:00 2023-11-20 15:40:00 Clinical Support Deanna Argueta Nurse, [facility] [place] [id number] 1.2.840.114 350.1.13.70 8.2.7.2.686 [id number] [facility] 2023-11-14 13:45:15 2023-11-14 15:09:58 Outpatient Elective ANY[facility]DEZ [facility] [id number] EOUT 2023-11-14 13:40:00 2023-11-14 13:50:00 Office Visit Anya Hernandez [facility] [id number] 1.2.840.114 350.1.13.70 8.2.7.2.686 [id number] [facility] 2023-11-06 00:00:00 2023-11-06 08:23:23 Orders Only Narciso Tolliver [facility] 1.2.840.114 350.1.13.70 8.2.7.2.686 [id number] Nazanin tovar [facility] 2023-11-05 00:00:00 2023-11-05 16:20:00 Orders Only [facility] 1.2.840.114 350.1.13.70 8.2.7.2.686 [id number] [facility] 2023-05-14 21:51:00 2023-05-15 05:32:00 Emergency EM Samia Saldana HCAPM SHMUEL [id number] [facility] 2023-04-08 17:20:00 2023-04-15 17:27:00 Inpatient EM Bj Oneal HCAPM MEDI.01 [id number] [facility] 2023-04-08 12:03:00 2023-04-08 12:03:00 Outpatient Shaq Coats HCACL LABO [id number] [facility] 2023-02-04 11:15:00 2023-02-04 12:50:41 Office Visit Terence Puentes [facility] 1 1.2.840.114 350.1.13.58 9.2.7.2.686 [id number] [facility] 2023-01-22 12:00:00 2023-01-22 12:00:00 Outpatient EL Narciso Tolliver HCAPM KANDACE [id number] [facility] 2023-01-03 13:02:00 2023-01-03 13:02:00 Outpatient Brett GatesPM RADI [id number] [facility] 2022-12-14 12:20:00 2022-12-14 12:20:00 Outpatient Brett GatesCL LABO [id number] [facility] 2022-12-14 06:10:00 2022-12-14 06:10:00 Outpatient Brett GatesPM DIALLO [id number] [facility] 2022-12-03 12:49:00 2022-12-05 14:36:00 Inpatient EM Grace Castano HCAPM MEDI.01 [id number] [facility] 2022-12-02 18:34:00 2022-12-02 18:34:00 Outpatient EL Grace Castano HCACL LABO [id number] [facility] 2022-11-20 15:41:00 2022-11-24 20:02:00 Inpatient EM Glen Nava HCAPM MEDI.01 [id number] [facility] 2022-11-20 16:14:00 2022-11-20 16:14:00 Outpatient Glen Nava HCACL LABO [id number] [facility] 2022-11-07 06:14:00 2022-11-07 09:20:00 Emergency EM Rony Hickey HCAPM SHMUEL [id number] [facility] 2022-11-01 17:19:00 2022-11-04 16:13:00 Inpatient EM Bj Oneal HCAPM TELE [id number] [facility] 2022-11-01 22:37:00 2022-11-01 22:37:00 Outpatient Bj Oneal HCACL LABO [id number] [facility] 2021-09-28 23:24:00 2021-09-29 22:18:00 Inpatient EL Ron Tipton [facility] ICU [id number] [facility] 2021-09-28 23:24:00 2021-09-29 22:18:00 Inpatient Ron Pelayo [facility] ICU [id number] [facility] 2021-09-29 17:44:00 2021-09-29 17:44:00 Outpatient Ron Tipton HCANW REF [id number] [facility] 2021-09-19 05:20:00 2021-09-19 05:20:00 Outpatient GC_[facility] _Lotze_P [facility] [id number] [facility] 2021-09-18 04:18:00 2021-09-18 04:18:00 Outpatient GC_[facility] _Lotze_P [facility] [id number] [facility] 2021-09-18 00:00:00 2021-09-18 00:00:00 Mary Kay Robertson, [employer]: [address], [address], [place] [address] , Ph. [id number] [facility] - GC_[facility]WHAWPRC _Nas Office* [id number] [facility] 2021-09-18 00:00:00 2021-09-18 00:00:00 Outpatient Mary Kay Robertson [facility] [id number] 2021-09-08 02:12:00 2021-09-08 02:12:00 Outpatient [facility] _Lotze_P [facility] [id number] [facility] 2021-08-30 19:42:00 2021-08-31 01:46:00 Emergency EM HenryRobyn le [facility] [id number] [facility] 2021-08-30 19:42:00 2021-08-31 01:46:00 Emergency EM HenryRobyn le [facility] [id number] [facility] 2021-08-30 04:41:00 2021-08-30 04:41:00 Outpatient GC[facility] _Lotze_P [facility] [id number] [facility] Medical Results Test Description Test Time Test Comments Results Result Co mments Source [facility] w/Diff and [id number] 05:13:35 * Test Item Value Reference Range Interpretation Comme nts WBC X 10x3 (test code = 6690-2) See_Comment [Automated messa ge] The system which generated this result transmitted reference range: 3.8 - 10.8 Thousand/uL. The reference range was not used to interpret this result as normal/abnormal. RBC X 10x6 (test code = 789-8) See_Comment [Automated messa ge] The system which generated this result transmitted reference range: 3.80 - 5.10 Million/uL. The reference range was not used to interpret this result as normal/abnormal. Hgb (test code = 718-7) 12.9 g/dL 11.7-15.5 Hct (test code = 4544-3) 41.2 % 35.0-45.0 MCV (test code = 787-2) 82.2 fL 80.0-100.0 MCH (test code = 785-6) 25.7 pg 27.0-33.0 L MCHC (test code = 786-4) 31.3 g/dL 32.0-36.0 L RDW (test code = 788-0) 17.4 % 11.0-15.0 H Platelet (test code = 777-3) See_Comment [Automated messa ge] The system which generated this result transmitted reference range: 140 - 400 Thousand/uL. The reference range was not used to interpret this result as normal/abnormal. MPV (test code = 776-5) 11.7 fL 7.5-12.5 Neutrophils # (test code = 751-8) See_Comment [Automated messa ge] The system which generated this result transmitted reference range: 1,500 - 7,800 cells/uL. The reference range was not used to interpret this result as normal/abnormal. Lymphocytes # (test code = 731-0) See_Comment [Automated [employer]] The system which generated this result transmitted reference range: 850 - 3,900 cells/uL. The reference range was not used to interpret this result as normal/abnormal. Monocytes # (test code = 742-7) See_Comment [Automated messa ge] The system which generated this result transmitted reference range: 200 - 950 cells/uL. The reference range was not used to interpret this result as normal/abnormal. Eosinophils # (test code = 711-2) See_Comment [Automated [employer]] The system which generated this result transmitted reference range: 15 - 500 cells/uL. The reference range was not used to interpret this result as normal/abnormal. Basophils # (test code = 704-7) See_Comment [Automated [employer]] The system which generated this result transmitted reference range: 0 - 200 cells/uL. The reference range was not used to interpret this result as normal/abnormal. Segs (test code = 770-8) 41.1 % Lymphocytes (test code = 736-9) 46.8 % Monocytes (test code = 5905-5) 8.9 % Eosinophils (test code = 713-8) 2.1 % Basophils (test code = 706-2) 1.1 % JASON (test code = JASON) Lab Interpretation (test code = 15450-6) Abnormal [facility] Metabolic [id number] 05:13:34* Test Item Value Reference Range Interpretation Comme nts Glucose Lvl (test code = 2345-7) 80 mg/dL 65-139 . ? ? ? Non-fast ing reference interval. BUN (test code = 3094-0) 12 mg/dL 7-25 Creatinine Lvl (test code = 2160-0) 1.10 mg/dL 0.50-0.99 H eGFR (test code = 32651-4) See_Comment [Automated [employer]] The system which generated this result transmitted reference range: > OR = 60 mL/min/1.73m2. The reference range was not used to interpret this result as normal/abnormal. B/C Ratio (test code = 3097-3) See_Comment [[employer]] The system which generated this result transmitted reference range: 6 - 22 (calc). The reference range was not used to interpret this result as normal/abnormal. Sodium Lvl (test code = 2951-2) 137 mmol/L 135-146 Potassium Lvl (test code = 2823-3) 3.9 mmol/L 3.5-5.3 Chloride Lvl (test code = 2075-0) 95 mmol/L 98-110 L CO2 Lvl (test code = 8-9) 34 mmol/L 20-32 H Calcium Lvl (test code = 55549-4) 9.6 mg/dL 8.6-10.2 JASON (test code = JASON) Lab Interpretation (test code = 05929-9) [facility]normal [facility]HA1C)2023-04-11 05:35:00* Test Item Value Reference Range Interpretation Comme nts GLYCOSYLATED HEMOGLOBIN (HA1 C) (test code = GLYHGB) 6.2 % A1C 0.0-5.7 H BASIC METABOLIC [id number] 05:28:00* Test Item Value Reference Range Interpretation [...] CA) 8.1 MG/DL 8.5-10.1 L CBC W/AUTO [id number] 05:05:00* Test Item Value Reference Range Interpretation [...] K/mm3 0.0-0.1 N - CT HEAD/BRAIN W/O [id number] 09:42:00 [facility] HQLONNIE ALMEIDA : 1980 Sex: F Name: EMIR BELLO [facility] : 1980 Age/S: 43 / F [address] Unit #: [id number] Loc: [place] [address] Phys: Torsten Craig Acct: [id number] Dis Date: Status: ADM IN PHONE #: [phone] Exam Date: 04/10/2023 0920 FAX #: Reason: Hallucination EXAMS: CPT: [id number] CT HEAD/BRAIN W/O CONT 51694 Location Code: S17 EXAMINATION: - CT HEAD/BRAIN [...] M.D. CC: Bj Oneal MD; Torsten Craig; Narciso Tolliver MD Technologist:CLIVE ANGULO CTDI: DLP: Trnscb Date/Time: 04/10/2023 (0942) [email or web address] Orig Print D/T: S: 04/10/2023 (5770) PAGE 1 Signed ReportCBC W/AUTO [id number] 07:24:00* Test Item Value Reference Range Interpretation [...] code = NRBC#) 0.0 K/mm3 0.0-0.1 N [id number] 06:45:00* Test Item Value Reference Range Interpretation Comme nts PHOSPHOROUS (test code = PHOS) 2.0 MG/DL 2.5-4.9 L [id number] 06:45:00* Test Item Value Reference Range Interpretation Comme nts MAGNESIUM (test code = MAG) 2.1 MG/DL 1.8-2.4 N COMPREHENSIVE METABOLIC [id number] 06:44:00* Test Item Value Reference Range Interpretation [...] code = ALKP) 67 Unit/L 45-117 N [id number] 06:19:00* Test Item Value Reference Range Interpretation Comme nts AMMONIA (test code = AMM) < 10 mcMOL/L 11-32 L DRUGS OF ABUSE SCREEN [id number] 02:45:00* Test Item Value Reference Range Interpretation [...] interpret this result as normal/abnormal. GLUCOSE BEDSIDE [id number] 11:27:00* Test Item Value Reference Range Interpretation Comme nts GLUCOSE BEDSIDE TESTING (brooke t code = GLUBED) 88 mg/dL 70-110 N - CT ABD PELVIS W/O [id number] 12:20:00 [facility] HQ[facility]RO JUAN PABLO : 1980 Sex: F Name: EMIR BELLO [facility] : 1980 Age/S: 43 / F [address] Unit #: [id number] Loc: [place] [address] Phys: Trinh Schumacher Acct: [id number] Dis Date: Status: REG ER PHONE #: [phone] Exam Date: 04/08/2023 1051 FAX #: Reason: flank pain w/ureteral stent EXAMS: CPT: [id number] CT ABD PELVIS W/O CONT 22696 Location Code: S17 EXAMINATION: - CT ABD [...] of normal caliber. Gallbladder: No radiodense gallstones. Pancreas:No evidence of focal pancreatic mass or peripancreatic fluid collection. Spleen: Normal in size andcontour. Adrenals: Normal configuration. Kidneys and ureters: There is a stent in the right renal c ollecting system with the distal portion in the urinary bladder. There is no evidence of significant hydronephrosis. There is moderate right perinephric stranding and mild induration involving the proximal portion of the right ureter. No evidence of left-sided obstructive PAGE 1 Signed Report (CONTINUED) Name: DAVID BELLO [facility] : 1980 Age/S: 43 / F [address] Unit #: [id number] Loc: [place] [address] Phys: Trinh Schumacher Acct: [id number] Dis Date: Status: REG ER PHONE #: [phone] Exam Date: 04/08/2023 1051 FAX #: Reason: flank pain w/ureteral stent EXAMS: CPT: [id number] CT ABD PELVIS W/O CONT 92536 (Continued) uropathy. Slightly increased attenuation within the renal medulla/pyramids bilaterally. Uterus is grossly unremarkable.Bowel: No evidence of bowel obstruction. Normal appendix. Small amount of free fluid in the pelvis.Lymph nodes: There are no pathologically enlarged abdominopelvic [...] involving the proximal portion of the right uretersuggest infection or inflammation. at 1220 Reported and signed by: Feliciano Barriga M.D. CC: Narciso Tolliver MD; Trinh MENJIVAR Technologist:CLIVE ANGULO CTDI: DLP: Trnscb Date/Time: 04/08/2023 (1220) t.SDR.RSS5 Orig Print D/T: S: (4261) PAGE 2 Signed ReportUA RFLX MICR CULT IF [id number] 12:18:00 * Test Item Value Reference Range Interpretation [...] code = HCGQLU) NEGATIVE NEGATIVE BASIC METABOLIC [id number] 11:12:00* Test Item Value Reference Range Interpretation [...] CA) 8.7 MG/DL 8.5-10.1 N HEPATIC FUNCTION [id number] 11:12:00* Test Item Value Reference Range Interpretation [...] ALKP) 71 Unit/L 45-117 N TROP-I HIGH [id number] 11:12:00* Test Item Value Reference Range Interpretation [...] results and URLs may varyby method. LACTIC [id number] 11:12:00* Test Item Value Reference Range Interpretation Comme nts LACTIC ACID (test code = LACT) 1.1 mmol/L 0.4-2.0 N - XR CHEST 1 [id number] 10:48:00 [facility] 1980 Sex: F Name: EMIR BELLO [facility] : 1980 Age/S: 43 / F [address] Unit #: [id number] Loc: [place] [address] Phys: Trinh Schumacher Acct: [id number] Dis Date: Status: REG ER PHONE #: [phone] Exam Date: 04/08/2023 110 FAX #: Reason: Code Sepsis EXAMS: CPT: [id number] XR CHEST 1 V 14598 Fluoro Time: DAP (Gy m2): Air Kerma (mGy): STUDY: Chest radiograph HISTORY: Sepsis COMPARISON: 11/24/2022 TECHNIQUE: Frontal view of the chest. LOCATION:H19 FINDINGS: The cardiac silhouette is unremarkable. There is no focal consolidation, pleural effusion, or pneumothorax. No acute osseous abnormalities are identified. IMPRESSION: No radiographic evidence for acute pulmonary abnormality. at 1048 Reported and signed by: Shaq Pena M.D. CC: Narciso Tolliver MD; Trinh MENJIVAR PAGE1 Signed Report Name: DAVID BELLO HQMOJGANO JUAN PABLO [facility] : 1980 Age/S: 43 / F [address] Unit #: [id number] Loc: [place] [address] Phys: Trinh Schumacher Acct: [id number] Dis Date: Status: REG ER PHONE #: [phone] Exam Date: 04/08/2023 1109 FAX #: Reason: Code Sepsis EXAMS: CPT: [id number] XR CHEST 1 V 90031 Fluoro Time: DAP (Gy m2): Air Kerma (mGy): (Continued) Technologist: Jay Chavez, RT,(R),(CT) Trnscb Date/Time: 04/08/2023 (8933) t.SDR.RH16 Orig Print D/T: S: 04/08/2023 (0995) PAGE 2 Signed ReportCBC W/AUTO [id number] 10:37:00* Test Item Value Reference Range Interpretation [...] = NRBC#) 0.0 K/mm3 0.0-0.1 N - [facility] [id number] 14:50:00 [facility] HQ[facility]RO : 1980 Sex: F Name: EMIR BELLOHA HQIRRO N [facility] : 1980 Age/S: 42 / F [address] Unit #: [id number] Loc: [place] [address] Phys: Brett Rodriguez MD Acct: [id number] Dis Date: Status: REG CLI PHONE #: [phone] Exam Date: 01/03/2023 1400 FAX #: Reason: RENAL CALCULI EXAMS: CPT: [id number] US RETROPERITONEAL COM 11349 ULTRASOUND: - US RETROPERITONEAL COM History: Kidney [...] effect seen. Upon voiding, the right kidney isreimaged and still continues show trace of hydronephrosis. Impression: Trace right hydronephrosis. 1.3 cm lower pole renal calculus suggested, similarly. Location: U19 at 1450 Reported and signed by: Shaq Ramos M.D. CC: Javi Cuadra MD; Brett Rodriguez MD Technologist: Linnette Holloway Trnneb Date/Time: 01/03/2023 (1450) MckaylaRM61 PAGE 1 Signed Report Name: DAVID BELLO HQIRRO N [facility] : 1980 Age/S: 42 / F [address] Unit #: [id number] Loc: [place] [address] Phys: Brett Rodriguez MD Acct: [id number] Dis Date: Status: REG CLI PHONE #: [phone] Exam Date: 01/03/2023 1400 FAX #: Reason: RENAL CALCULI EXAMS: CPT: [id number] US RETROPERITONEAL COM 89598 (Continued) Orig Print D/T: S: 01/03/2023 (1453) Probe: PAGE 2 Signed Report- XR FLUOROSCOPY 0-60 MIN 2022-12-14 09:37:00 [facility] HQ[facility]RO N : 1980 Sex: F Name: EMIR BELLO HQIRRO N [facility] : 1980 Age/S: 42 / F [address] Unit #: [id number] Loc: [place] [address] Phys: Brett Rodriguez MD Acct: [id number] Dis Date: Status: [facility] PHONE #: [phone] Exam Date: 12/14/2022 09 FAX #: Reason: CYSTO EXAMS: CPT: [id number] XR FLUOROSCOPY 0-60 MIN 57069 Fluoro Time: 23.3 DAP (Gy m2): Air Kerma (mGy): 5.5 Location Code: S17 Fluoroscopy was provided by the Department of Radiology for cystogram. A Radiologist was not present for the procedure. Please refer to the surgeon's operative report. One fluoroscopic spot image was submitted. Total exposure time: 23.3 seconds. Cumulative Air Kerma: 5.5 mGy. at 0937 Reported and signed by: Feliciano Barriga M.D. CC:Javi Cuadra MD; Brett Rodriguez MD PAGE 1 Signed Report Name: EMIR BELLO HQIRRO [facility] : 1980 Age/S: 42 / F [address] [address] Unit #: [id number] Loc: [place] [address] Phys: Brett Rodriguez MD Acct: [id number] Dis Date: Status: REG [facility] PHONE #: [phone] Exam Date: 2022 0900 FAX #: Reason: CYSTO EXAMS: CPT: [id number] XR FLUOROSCOPY 0-60 MIN 97736 Fluoro Time: 23.3 DAP (Gy m2): Air Kerma (mGy): 5.5 (Continued) Technologist: Sejal Encarnacion Trnscb Date/Time: 12/14/2022 (7037) MckaylaRSS5 Orig Print D/T: S: 12/14/2022 (5381) PAGE 2 Signed ReportCBC W/AUTO [id number] 07:17:00* Test Item Value Reference Range Interpretation [...] = MDIFF) NO DIFF/SCN CRITERIA BASIC METABOLIC [id number] 07:03:00* Test Item Value Reference Range Interpretation [...] CA) 8.4 MG/DL 8.5-10.1 L GLUCOSE BEDSIDE [id number] 07:02:00* Test Item Value Reference Range Interpretation Comme nts GLUCOSE BEDSIDE TESTING (brooke t code = GLUBED) 132 mg/dL 70-110 H UR HCG [id number] 06:57:00* Test Item Value Reference Range Interpretation Comme nts UR HCG QUAL (test code = HCGQLU) NEGATIVE NEGATIVE GLUCOSE BEDSIDE [id number] 12:30:00* Test Item Value Reference Range Interpretation Comme nts GLUCOSE BEDSIDE TESTING (brooke t code = GLUBED) 175 mg/dL 70-110 H GLUCOSE BEDSIDE [id number] 08:13:00* Test Item Value Reference Range Interpretation Comme nts GLUCOSE BEDSIDE TESTING (brooke t code = GLUBED) 127 mg/dL 70-110 H GLUCOSE BEDSIDE [id number] 22:36:00* Test Item Value Reference Range Interpretation Comme nts GLUCOSE BEDSIDE TESTING (brooke t code = GLUBED) 114 mg/dL 70-110 H GLUCOSE BEDSIDE [id number] 18:33:00* Test Item Value Reference Range Interpretation Comme nts GLUCOSE BEDSIDE TESTING (brooke t code = GLUBED) 106 mg/dL 70-110 N GLUCOSE BEDSIDE [id number] 12:05:00* Test Item Value Reference Range Interpretation Comme nts GLUCOSE BEDSIDE TESTING (brooke t code = GLUBED) 171 mg/dL 70-110 H GLUCOSE BEDSIDE [id number] 11:58:00* Test Item Value Reference Range Interpretation Comme nts GLUCOSE BEDSIDE TESTING (brooke t code = GLUBED) 171 mg/dL 70-110 H GLUCOSE BEDSIDE [id number] 07:29:00* Test Item Value Reference Range Interpretation Comme nts GLUCOSE BEDSIDE TESTING (brooke t code = GLUBED) 107 mg/dL 70-110 N CBC W/AUTO [id number] 05:38:00* Test Item Value Reference Range Interpretation [...] = MDIFF) NO DIFF/SCN CRITERIA BASIC METABOLIC [id number] 04:43:00* Test Item Value Reference Range Interpretation [...] CA) 7.8 MG/DL 8.5-10.1 L GLUCOSE BEDSIDE [id number] 21:21:00* Test Item Value Reference Range Interpretation Comme nts GLUCOSE BEDSIDE TESTING (brooke t code = GLUBED) 107 mg/dL 70-110 N GLUCOSE BEDSIDE [id number] 18:02:00* Test Item Value Reference Range Interpretation Comme nts GLUCOSE BEDSIDE TESTING (brooke t code = GLUBED) 187 mg/dL 70-110 H GLUCOSE BEDSIDE [id number] 12:20:00* Test Item Value Reference Range Interpretation Comme nts GLUCOSE BEDSIDE TESTING (brooke t code = GLUBED) 140 mg/dL 70-110 H GLUCOSE BEDSIDE [id number] 08:04:00* Test Item Value Reference Range Interpretation Comme nts GLUCOSE BEDSIDE TESTING (brooke t code = GLUBED) 111 mg/dL 70-110 H COMPREHENSIVE METABOLIC [id number] 06:14:00* Test Item Value Reference Range Interpretation [...] ALKP) 87 Unit/L 45-117 N CBC W/AUTO [id number] 05:59:00* Test Item Value Reference Range Interpretation [...] = MDIFF) NO DIFF/SCN CRITERIA GLUCOSE BEDSIDE [id number] 20:05:00* Test Item Value Reference Range Interpretation Comme nts GLUCOSE BEDSIDE TESTING (brooke t code = GLUBED) 162 mg/dL 70-110 H COMPREHENSIVE METABOLIC [id number] 12:48:00* Test Item Value Reference Range Interpretation [...] = ALKP) 92 Unit/L 45-117 N HCG [id number] 12:39:00* Test Item Value Reference Range Interpretation Comme nts HCG SERUM (test code = HCG) < 1 mi-IU/ML 0-6 N 0 - 6 NOT PREGNA NT > 6 SUGGESTIVE OF EARLY RISES TWO FOLD EVERY 2 DAYS; SUGGEST RECONFIRMING AFTER 2 DAYS. 150,000-200,[address] TRIMESTER 10,000 - 50,000 2ND & 3RD TRIMESTER UA RFLX MICR CULT IF [id number] 12:36:00* Test Item Value Reference Range Interpretation [...] fL 7.0-10.5 H - XR CHEST 1 [id number] 13:23:00 [facility] HQLONNIE Hernandez : 1980 Sex: F Name: EMIR BELLO [facility] : 1980 Age/S: 42 / F [address] Unit #: [id number] Loc: [place] [address] Phys: Grace Castano MD Acct: [id number] Dis Date: Status: ADM IN PHONE #: [phone] Exam Date: 11/24/2022 1315 FAX #: Reason: PICC LINE EXAMS: CPT: [id number] XR CHEST 1 V 12390 Fluoro Time: DAP (Gy m2): Air Kerma [...] positioned. at 1323 Reported and signed by: Artur Martinez CC: Javi Cuadra MD; Glen Nava MD; Grace Castano MD PAGE 1 Signed Report Name: DAVID BELLO HQIRRO N [facility] : 1980 Age/S: 42 / F [address] Unit #:[id number] Loc: [place] [address] Phys: Grace Castano MD Acct: [id number] Dis Date: Status: ADM IN PHONE #: [phone] Exam Date: 11/24/2022 1315 FAX #: Reason: PICC LINE EXAMS: CPT: [id number] CHEST 1 V 46038 Fluoro Time: DAP (Gy m2): Air Kerma (mGy): (Continued) Technologist: Jay Chavez, RT,(R),(CT) Trnscb Date/Time: 11/24/2022 (1323) Drew.SI1 Orig Print D/T: S: 11/24/2022 (1329) PAGE 2 Signed Report- XR FLUOROSCOPY 0-60 [id number] 22:47:00 [facility] HQ[facility] N : 1980 Sex: F Name: EMIR BELLO HQIRRO N [facility] : 1980 Age/S: 42 / F [address] Unit #: [id number] Loc: [place] [address] Phys: Glen Nava MD Acct: [id number] Dis Date:Status: ADM IN PHONE #: [phone] Exam Date: 11/21/20224 FAX #: Reason: R CYSTO RETRO STENT PLACEMENT EXAMS: CPT: [id number] XR FLUOROSCOPY 0-60 MIN 09139 Fluoro Time: 110 SEC DAP (Gy m2): AirKerma (mGy): EXAM: - XR FLUOROSCOPY 0-60 MIN LOCATION: [facility] CLINICAL HISTORY/INDICATION: R CYSTO RETRO STENT PLACEMENT FINDINGS: Intraoperative fluoroscopy was provided by the radiology department. Fluoroscopy time: 110.1 seconds Cumulative air kerma: 58.40 mGy Fluoroscopic guidance for ureteral stent placement. IMPRESSION: Fluoroscopic guidance as above. at 9334 Reported and signed by: Víctor Boyle M.D. CC: Javi Cuadra MD; Glen Nava MD PAGE 1 Signed Report Name: DAVID BELLO HQIRRO N [facility] : 1980 Age/S: 42 / F [address] [address] Unit #: [id number] Loc: [place] [address] Phys: Glen [id number] Dis Date: Status: ADM IN PHONE #: [phone] Exam Date: 11/21/2022 1824 FAX #: Reason: R CYSTO RETRO STENT PLACEMENT EXAMS: CPT: [id number] XR FLUOROSCOPY 0-60 MIN 73086 Fluoro Time: 110 SEC DAP (Gy m2): Air Kerma (mGy): (Continued) Technologist: Ubaldo Valencia, RT(R) Trnscb Date/Time: 11/21/2022 (3) t.SDR.TH15 Orig Print D/T: S: 11/21/2022 (4486) PAGE 2 Signed ReportUR HCG QUAL 2022-11-21 17:33:00* Test Item Value Reference Range Interpretation Comme nts UR HCG QUAL (test code = HCGQLU) NEGATIVE NEGATIVE COVID 19 INHOUSE [id number] 17:13:00* Test Item Value Reference Range Interpretation Comme nts COVID 19 INHOUSE AG (test code = [id number]) NEGATIVE Negative 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 GLUCOSE BEDSIDE [id number] 16:34:00* Test Item Value Reference Range Interpretation Comme nts GLUCOSE BEDSIDE TESTING (brooke t code = GLUBED) 114 mg/dL 70-110 H UA RFLX MICR CULT IF [id number] 13:26:00* Test Item Value Reference Range Interpretation [...] 100.4 FSOURCE OF URINE: CLEAN CATCHGLUCOSE BEDSIDE [id number] 11:50:00* Test Item Value Reference Range Interpretation Comme nts GLUCOSE BEDSIDE TESTING (brooke t code = GLUBED) 151 mg/dL 70-110 H CBC W/AUTO [id number] 09:30:00* Test Item Value Reference Range Interpretation [...] ode = MDIFF) YES DIFF/SCN CRITERIA WBC [id number] 09:30:00* Test Item Value Reference Range Interpretation [...] 1+ ON SCAN NONE PLATELET COUNT W/ [id number] 09:30:00* Test Item Value Reference Range Interpretation Comme nts PLATELET ESTIMATE (test code = PLTEST) ADEQUATE THOUSAND ADEQUATE PLATELET MORPHOLOGY (test code = PLTMORPH) NORMAL PROTHROMBIN [id number] 08:54:00* Test Item Value Reference Range Interpretation [facility] PT PATIENT (test code = PTP) 14.7 [...] Infarction (to prevent recurrent infarct). THROMBOPLASTIN TIME [id number] 08:54:00* Test Item Value Reference Range Interpretation [facility] THROMBOPLASTIN TIME PARTIAL (test code = PTT) 30.9 SECONDS 26-35 N [id number] 08:54:00* Test Item Value Reference Range Interpretation [facility] FIBRINOGEN (test code = FIB) 842 mg/dL 185-453 H COMPREHENSIVE METABOLIC [id number] 08:52:00* Test Item Value Reference Range Interpretation [facility] SODIUM (test code = NA) 133 mmol/L [...] code = ALKP) 162 Unit/L 45-117 H [id number] 08:52:00* Test Item Value Reference Range Interpretation Comme nts MAGNESIUM (test code = MAG) 1.6 MG/DL 1.8-2.4 L LACTIC [id number] 08:52:00* Test Item Value Reference Range Interpretation Comme nts LACTIC ACID (test code = LACT) 1.3 mmol/L 0.4-2.0 N GLUCOSE BEDSIDE [id number] 07:36:00* Test Item Value Reference Range Interpretation Comme nts GLUCOSE BEDSIDE TESTING (brooke t code = GLUBED) 98 mg/dL 70-110 N CBC W/AUTO [id number] 06:44:00* Test Item Value Reference Range Interpretation [...] ode = MDIFF) YES DIFF/SCN CRITERIA WBC [id number] 06:44:00* Test Item Value Reference Range Interpretation [...] = PLTMORPH) OCC LARGE PLATELET BASIC METABOLIC [id number] 05:14:00* Test Item Value Reference Range Interpretation [...] CA) 7.6 MG/DL 8.5-10.1 L GLUCOSE BEDSIDE [id number] 21:16:00* Test Item Value Reference Range Interpretation Comme nts GLUCOSE BEDSIDE TESTING (brooke t code = GLUBED) 155 mg/dL 70-110 H LACTIC [id number] 20:49:00* Test Item Value Reference Range Interpretation Comme nts LACTIC ACID (test code = LACT) 1.2 mmol/L 0.4-2.0 N GLUCOSE BEDSIDE [id number] 18:43:00* Test Item Value Reference Range Interpretation Comme nts GLUCOSE BEDSIDE TESTING (brooke t code = GLUBED) 156 mg/dL 70-110 H - US RETROPERITONEAL [id number] 16:41:00 [facility] HQ[facility]RO N : 1980 Sex: F Name: EMIR BELLO HQMOJGANO N [facility] : 1980 Age/S: 42 / F [address] [facility] [place] Unit #: [id number] Loc: [place] [address] Phys: Trinh Schumacher Acct: [id number] Dis Date: Status: ADM IN PHONE #: [phone] Exam Date: 11/20/2022 0663 FAX #: Reason: R renal pole stone EXAMS: CPT: [id number] US RETROPERITONEAL COM 58499 EXAM: - US RETROPERITONEAL COM LOCATION: U19 HISTORY: R renal pole stone TECHNIQUE: Grayscale B-mode and color Doppler sonographic images of the kidneys were performed. Dedicated grayscale B-mode and color Doppler pelvic imaging of the urinarybladder was also performed. COMPARISON: CT abdomen and pelvis 11/01/2022 FINDINGS: The right kidney measures 13.7 x 6.5 x 5.9 cm. Normal echogenicity and contour. Mild to moderate hydronephrosis with c aliectasis distention noted. Shadowing calculus measuring 1.6 cm [...] Signed Report Name: EMIR BELLO HQIRRO N [facility] : 1980 Age/S: 42 / F [address] [address] Unit #: [id number] Loc: [place] [address] Phys: Trinh Schumacher Acct: [id number] Dis Date: Status: ADM IN PHONE #: [phone] Date: 11/20/2022 1623 FAX #: Reason: R renal pole stone EXAMS: CPT: [id number] [facility] [address] (Continued) Orig Print D/T: S: 11/20/2022 (1644) Probe: PAGE 2 Signed ReportLACTIC [id number] 16:11:00* Test Item Value Reference Range Interpretation Comme nts LACTIC ACID (test code = LACT) 2.2 mmol/L 0.4-2.0 H CBC W/AUTO [id number] 16:03:00* Test Item Value Reference Range Interpretation [...] ode = MDIFF) YES DIFF/SCN CRITERIA WBC [id number] 16:03:00* Test Item Value Reference Range Interpretation [...] (test code = PLTMORPH) NORMAL COMPREHENSIVE METABOLIC [id number] 14:58:00* Test Item Value Reference Range Interpretation [...] = ALKP) 178 Unit/L 45-117 H LACTIC [id number] 14:45:00* Test Item Value Reference Range Interpretation Comme nts LACTIC ACID (test code = LACT) 3.6 mmol/L 0.4-2.0 H UA RFLX MICR CULT IF [id number] 14:21:00* Test Item Value Reference Range Interpretation [...] URINE: CLEAN CATCHUA RFLX MICR CULT IF [id number] 09:11:00* Test Item Value Reference Range Interpretation [...] Flank PainSOURCE OF URINE: CLEAN CATCHBASIC METABOLIC [id number] 07:07:00* Test Item Value Reference Range Interpretation [...] CA) 8.1 MG/DL 8.5-10.1 L CBC W/AUTO [id number] 07:02:00* Test Item Value Reference Range Interpretation [...] = MDIFF) NO DIFF/SCN CRITERIA UR HCG [id number] 06:59:00* Test Item Value Reference Range Interpretation Comme nts UR HCG QUAL (test code = HCGQLU) NEGATIVE NEGATIVE GLUCOSE BEDSIDE [id number] 12:08:00* Test Item Value Reference Range Interpretation Comme nts GLUCOSE BEDSIDE TESTING (brooke t code = GLUBED) 93 mg/dL 70-110 N GLUCOSE BEDSIDE [id number] 08:11:00* Test Item Value Reference Range Interpretation Comme nts GLUCOSE BEDSIDE TESTING (brooke t code = GLUBED) 118 mg/dL 70-110 H BASIC METABOLIC [id number] 05:38:00* Test Item Value Reference Range Interpretation [...] CA) 8.1 MG/DL 8.5-10.1 L GLUCOSE BEDSIDE [id number] 16:30:00* Test Item Value Reference Range Interpretation Comme nts GLUCOSE BEDSIDE TESTING (brooke t code = GLUBED) 142 mg/dL 70-110 H GLUCOSE BEDSIDE [id number] 11:39:00* Test Item Value Reference Range Interpretation Comme nts GLUCOSE BEDSIDE TESTING (brooke t code = GLUBED) 139 mg/dL 70-110 H GLUCOSE BEDSIDE [id number] 07:27:00* Test Item Value Reference Range Interpretation Comme nts GLUCOSE BEDSIDE TESTING (brooke t code = GLUBED) 98 mg/dL 70-110 N GLYCOSYLATED HEMOGLOBIN [id number] 05:43:00* Test Item Value Reference Range Interpretation Comme nts GLYCOSYLATED HEMOGLOBIN (HA1 C) (test code = GLYHGB) 6.5 % A1C 0.0-5.7 H ESTIMATED AVERAGE GLUCOSE (t est code = EAG) 140 MG/DLest COMPREHENSIVE METABOLIC [id number] 05:07:00* Test Item Value Reference Range Interpretation [...] ALKP) 59 Unit/L 45-117 N GLUCOSE BEDSIDE [id number] 20:35:00* Test Item Value Reference Range Interpretation Comme nts GLUCOSE BEDSIDE TESTING (brooke t code = GLUBED) 86 mg/dL 70-110 N UA RFLX MICR CULT IF [id number] 17:51:00* Test Item Value Reference Range Interpretation [...] OF URINE: CLEAN CATCH- CT ABD PELVIS [id number] 15:23:00 [facility] MIRELLA BELLOLuisaGAVIN HQIRRO N : 1980 Sex: F Name: JAQUAN BELLOCorby HSU HQIRRO N [facility] : 1980 Age/S: 42 / F [address] [address] Unit #: [id number] Loc: [place] [address] Phys: Teddy Fernandez MD Acct: [id number] Dis Date: Status: REG ER PHONE #: [phone] Exam Date: 11/01/2022 FAX #: Reason: abd pain EXAMS: CPT: [id number] CT ABD PELVIS W/CONT 61453 HISTORY: Chest pain, vomiting, urination difficulty, dysuria. [...] Trace left pleural effusion seen. No axillary, hilaror mediastinal adenopathy can be found. The lungs [...] Report (CONTINUED) Name: DAVID BELLO [facility] 1980 Age/S: 42 / F [address] [address] Unit #: [id number]: Radha Johnson [id number] Phys: Teddy Fernandez MD Acct: [id number] Dis Date: Status: REG ER PHONE #: [phone] Exam Date: 11/01/2022 1501 FAX #: Reason: abd pain EXAMS: CPT: [id number] CT ABD PELVIS W/CONT 51303 (Continued) Left kidney does not show any focal inflammatory changes. The bladdercontains gas bubbles that may support cystitis or [...] (CONTINUED) Name: DAVID BELLO HQIRRO N [facility] [place] : 1980 Age/S: 42 / F [id number] Unit #: [id number] Loc: [place] [address] Phys: Teddy Fernandez MD Acct: [id number] Dis Date: Status: REG ER PHONE #: [phone] Exam Date: 11/01/2022 1509 FAX #: Reason: abd pain EXAMS: CPT: [id number] CT ABD PELVIS W/CONT 22713 (Continued) CC: Javi Cuadra MD; Teddy Fernandez MD Technologist:Jay Chavez, RT,(R),(CT) CTDI: DLP: Shakir D ate/Time: 11/01/2022 (1522) [id number] Orig Print D/T: S: 11/01/2022 (152) PAGE 3 Signed Report- CT CHEST W/[id number] 15:23:00 [facility] HQ[facility] David : 1980 Sex: F Name: EMIR BELLO HQMOJGANO N [facility] : 1980 Age/S: 42 / F [id number] [address] Unit #: [id number] Loc: [place], [place] [address] Phys: Teddy Fernandez MD Acct: [id number] Dis Date: Status: REG ER PHONE #: [phone] Exam Date: 11/01/2022 5454 FAX #: Reason: chest pain EXAMS: CPT: [id number] CT CHEST W/CONTRAST 11948 HISTORY: Chest pain, vomiting, urination difficulty, dysuria. CT chest, abdomen and pelvis, contrast enhanced. Reformatted sagittal and coronal images. COMPARISON: None Automated exposure control, iterative reconstruction technique, and/or adjustment of mA and/or kV according to patient's size was utilized for optimum radiation dose reduction. Following the intravenous administration of 100 ml of Isovue 300 but no oral contrast, a study of the chest,abdomen and pelvis was performed. CHEST FINDINGS:Normal aortic [...] lower pole of the right kidney with adense, large calcification up to 18 mm in diameter. Cortical perfusion asymmetric likely nephritis.Edema around the renal pelvis seen in proximal ureter as well. The ureteral diameter distally appears to be intact. Gas bubbles are seen in the upper pole. PAGE 1 Signed Report (CONTINUED) Name: DAVID BELLO [facility] : 1980 Age/S: 42 / F [address] Unit #: [id number] Loc: [place] [address] Phys: Teddy Fernandez MD Acct: [id number] Dis Date: Status: REG ER P FISH #: [phone] Exam Date: 11/01/2022 150 FAX #: Reason: chest pain EXAMS: CPT: [id number] CTCHEST W/CONTRAST 36646 (Continued) Left kidney does not show any [...] Some diverticulosis changes seen at the sigmoid possibly.No evidence of bony destructive lesions. Spine with [...] Report (CONTINUED) Name: DAVID BELLO HQMOJGANO N [facility] : 1980 Age/S: 42 / F [address] Unit #: [id number] Loc: [place] [address] Phys: Teddy Fernandez MD Acct: [id number] Dis Date: Status: REG ER PHONE #: [phone] Exam Date: 11/01/2022 1503 FAX #: Reason: chest pain EXAMS: CPT: [id number] CT CHEST W/CONTRAST 69150 (Continued) CC: Javi Cuadra MD; Teddy Fernandez MD Technologist:Jay Chavez RT,(R),(CT) CTDI: DLP: Trn scb Date/Time: 11/01/2022 (1522) [email or web address] Orig Print D/T: S: 11/01/2022 (085) PAGE 3 Signed Report- CT HEAD/BRAIN W/O [id number] 15:14:00 [facility] HQIRRRavi Hernandez : 1980 Sex: F Name: EMIR BELLO HQLONNIE Hernandez [facility] : 1980 Age/S: 42 / F [address] Unit #: [id number] Loc: [place] [address] Phys: Teddy Fernandez MD Acct: [id number] Dis Date: Status: REG ER PHONE #: [phone] Exam Date: 11/01/2022 1506 FAX #: Reason: dizziness not feeling well EXAMS: CPT: [id number] CT HEAD/BRAIN W/O CONT 32399 CLINICAL INFORMATION: Dizziness. Not feeling well. Dictation [...] RT,(R),(CT) CTDI: DLP: Trnscb Date/Time: 11/01/2022 (1513) [email or web address] Orig Print D/T: S: 11/01/2022 (4715) PAGE 1 Signed ReportHCG [id number] 13:04:00* Test Item Value Reference Range Interpretation Comme nts HCG SERUM (test code = HCG) < 1 mi-IU/ML 0-6 N 0 - 6 NOT PREGN ANT > 6 SUGGESTIVE OF EARLY RISES TWO FOLD EVERY 2 DAYS; SUGGEST RECONFIRMING AFTER 2 DAYS. 150,000-200,[address] TRIMESTER 10,000 - 50,000 2ND & 3RD TRIMESTER [id number] 10:48:00* Test Item Value Reference Range Interpretation Comme nts MAGNESIUM (test code = MAG) 2.3 MG/DL 1.8-2.4 N THYROID STIMULATING [id number] 10:48:00* Test Item Value Reference Range Interpretation Comme nts THYROID STIMULATING HORMONE (test code = TSH) 14.900 mcIU/ML 0.340-4.820 H BASIC METABOLIC [id number] 10:41:00* Test Item Value Reference Range Interpretation [...] CK) 105 Unit/L 26-192 N TROP-I HIGH [id number] 10:41:00* Test Item Value Reference Range Interpretation [...] results and URLs may varyby method. PROTHROMBIN [id number] 10:23:00* Test Item Value Reference Range Interpretation [...] Infarction (to prevent recurrent infarct). CBC W/O [id number] 10:08:00* Test Item Value Reference Range Interpretation [...] fL 7.0-10.5 H - XR CHEST 1 [id number] 09:49:00 [facility] HQMOJGANO David : 1980 Sex: F Name: EMIR BELLO HQIRRO N [facility] : 1980 Age/S: 42 / F [address] Unit #: [id number] Loc: [place] [address] Phys: Teddy Fernandez MD Acct: [id number] Dis Date: Status: REG ER PHONE #: [phone] Exam Date: 11/01/202232 FAX #: Reason: chest pain EXAMS: CPT: [id number] XR CHEST 1 V 67773 Fluoro Time: DAP (Gy m2): Air Kerma (mGy): EXAMINATION: - XR CHEST 1 V HISTORY: Chest pain COMPARISON: Chest x-ray performed August 30, 2021 LOCATION CODE: C3 FINDINGS: Single frontal view of the chest is submitted for evaluation. The lungs are clear. The cardiac silhouette, mediastinum and pulmonary vasculature are unremarkable. The regional osseous structures areintact IMPRESSION: No acute radiographic abnormality at 0949 Reported and signed by: Laverne Lee M.D. CC: Javi Cuadra MD; Teddy Tam MD PAGE 1 Signed Report Name: DAVID BELLO HQIRRO N [facility] : 1980 Age/S: 42 / F [address] Unit #: [id number] Loc: [place] [address] Phys: Teddy Fernandez MD Acct: [id number] Dis Date: Status: REG ER PHONE #: [phone] Exam Date: 11/01/2022 0932 FAX #: Reason: chest pain EXAMS: CPT: [id number] XR CHEST 1 V 66669 Fluoro Time: DAP (Gy m2): Air Kerma (mGy): (Continued) Technologist: HANNA REDDING Trnjuan albertob Date/Time: 11/01/2022 (948) [email or web address] Orig Print D/T: S: 11/01/2022 (5628) PAGE [id number] 17:01:00* Test Item Value Reference Range Interpretation Comme nts FLUID SOURCE (test code = SOURCEFL) PERICARD FLUID COLOR (test code = COLFL) YELLOW YELLOW A FLUID APPEARANCE (test code = APPFL) CLEAR CLEAR FLUID WBC (test code = WBCFL) 409 /mm3 FLUID WBC REFERE NCE RANGE: Pleural, Peritoneal, and Peritoneal Dialysate: 0-100/op7Frhhkgfhbir : 0-300/rk6Blpdiiwr: 0-150/mm3 ( <25% Neutophils) FLUID RBC (test code = RBCFL) 1000 /mm3 AFLUID RBC REFER ENCE RANGE: Pleural, Peritoneal, and Peritoneal Dialysate: 0/us3Ashumicmojz: <25,000/mm3 Synovial: 0/mm3 PATHOLOGIST INTERPRETATION (test code [...] % NONE SEEN SPEC COMMENTS: PERICARDIAL FLUIDFLUID [id number] 17:01:00* Test Item Value Reference Range Interpretation [...] and Children 2008. Ninth Edition (V9.1) [employer], [facility]; [place]: September 2008.The method performance specifications have not beenestablished for this test in body fluid. The test resultshould be integrated into the clinical context forinterpretation.Performe d At: [facility] [address] [id number] Gregg Tovar MD Ph:[phone] [Automated message] The system which generated this result transmitted reference range: (). The reference range was not used to interpret this result as normal/abnormal. SPEC COMMENTS: PERICARDIAL FLUIDCYTOLOGY NON [id number] 15:07:00* Test Item Value Reference Range Interpretation Comme nts CYTOLOGY NON AIRPLANE PILOT SUPERVISOR (test code = CR) RUN DATE: 10/04/21 [facility] - LAB PAGE 1 RUN TIME: 1507 Specimen Inquiry RUN USER: INTERFACE RICHARD ENT: KAMRAN BELLO LOC: [facility] U #: [id number] AGE/SX: 41/F ROOM: [facility] RE09/28/21REG DR: Ron Tipton MD : [birth year] BED: A DIS: 09/29/21 STATUS: DIS IN TLOC: SPEC #: [id number] RECD: 10/02/21 STATUS: BECKIE JAC #: [id number] DEVONTE: 09/29/21 [facility] [address]: Ron Tipton MD ENTERED: 10/02/21 SP TYPE: CYTO NGSUJIT LION DR: Self Referred Jasper Hurst MD Undefined ProviderORDERED: 10794/2, ANATOMIC SPEC HISTOLOGY: TISSUE ID BLK PCS BARBRA LEV / PROCEDURE DISPOSITION ____ ___ ___ ___ ___ PERFL A 1 3 TISSUES: A. PERICARDIAL FLUID - Pericardium FINAL DIAGNOSIS PERICARDIUM, PERICARDIOCENTESIS: Mesotheliall cells. Reactive mesothelial cells. Ocassional small lymphocytes. Rare neutrophiles. No malignant cells seen. GROSS DESCRIPTION Received are 10 mL of yellow fluid. 10 mL are sent to [facility] for cytospins. JA/jerad Technical component performed at [facility] [facility], [facility], [address] MICROSCOPIC DESCRIPTION Performed. CLINICAL INFORMATION Pericardial Effusion ---- Signed SIGNATURE ON FILE AlessioGurpreet Sarkar 10/04/21 1507 END OF REPORT FLUID [id number] 19:52:00* Test Item Value Reference Range Interpretation [...] 76 - 288 : : : : Yamilka WVazquez V. Reference Intervals for Adults and Children 2007. Ninth edition (V9.1) [employer], [facility]; [place]: September 2008.Please refer to [phone] for testing.10/03/2021 FLUID [id number] 19:52:00* Test Item Value Reference Range Interpretation [...] Fluid : <240 : : :____ : Yamilka WVazquez V. Reference Intervals for Adults and Children 2007. Ninth Edition (V9.1) [employer], [facility]; [place]: September 2008.Please refer to [phone] for testing.10/03/2021 [id number] 20:58:00* Test Item Value Reference Range Interpretation Comme nts GLUBED (test code = GLUBED) 153 MG/DL 70-105 H - XR CHEST 2 [id number] 19:11:00 [facility] : 1980 Sex: FPatient Name: KAMRAN BELLO Unit No: [id number] EXAMS: CPT CODE: [id number] XR CHEST 2 V 62738Eaxvhoro code: H5 Chest two views frontal and lateral Indication: PNEUMOTHORAX . Comparison: 09/28/2021 Findings: The heart and mediastinum are not remarkable. Costophrenic angles are clear. Linear atelectasis at the left base Bone is unremarkable for age. Impression: 1. No radiographic evidence of acute cardiopulmonary disease. No evidence of pneumothorax at 1911 Reported and signed by: PAUL GUZMÁN M.D. CC: Ron Tipton MD Technologist: Korin Hancock Time: DAP (Gy m2): Air Kerma (mGy): Trscr Dt/Tm: 09/29/2021(1910) by:[email or web address] Printed Date/Time: 09/29/2021 (1913) Name: KAMRAN BELLO [facility] Phys: Ron Paula MD [address] : 1980 Age: 41 Sex: [place] [address] Loc: P.0590 A Exam Date: 09/29/2021 Status: [...] New Reference Range Apr 2020 CBC W/AUTO [id number] 17:35:00* Test Item Value Reference Range Interpretation [...] BA#) 0.04 x10 3/uL 0.0-0.20 N RETIC [id number] 17:35:00* Test Item Value Reference Range Interpretation Comme nts RETIC CT AUTOMATED (test cod e = RETICA) 1.45 % 0.50-1.[address] ABSOLUTE (test code = RET#) 60.00 x10 3/uL 20.00-90.00 N [id number] 17:28:00* Test Item Value Reference Range Interpretation Comme nts GLUBED (test code = GLUBED) 91 MG/DL 70-105 N UR HCG [id number] 13:27:00* Test Item Value Reference Range Interpretation Comme nts UR HCG QUAL (test code = HCGQLU) NEGATIVE NEGATIVE [id number] 06:52:00* Test Item Value Reference Range Interpretation Comme nts TROPONIN-I (test code = TROPI) < 2.5 pg/mL 27.36-66.23 L Please note: Uni ts and Reference Range have changedFeb 2020 [id number] 04:27:00* Test Item Value Reference Range Interpretation Comme nts TROPONIN-I (test code = TROPI) < 2.5 pg/mL 27.36-66.23 L Please note: Uni ts and Reference Range have changedFeb 2020 COMPREHENSIVE METABOLIC [id number] 04:25:00* Test Item Value Reference Range Interpretation [...] Please note: New Reference Range Apr 2020 [id number] 04:25:00* Test Item Value Reference Range Interpretation Comme nts MAGNESIUM (test code = MAG) 2.1 mg/dL 1.6-2.6 N Please note: New Reference Range Apr 2020 CBC W/AUTO [id number] 03:40:00* Test Item Value Reference Range Interpretation [...] x10 3/uL 0.0-0.20 N COVID 19 INHOUSE [id number] 23:48:00* Test Item Value Reference Range Interpretation Comme nts COVID 19 INHOUSE AG (test code = MEHQU44INRT) NEGATIVE NEGATIVE Negative results , from patients [...] signs and symptomsconsistent with COVID-19. B-TYPE NATRIURETIC [id number] 23:47:00* Test Item Value Reference Range Interpretation Comme nts B-TYPE NATRIURETIC PEPTIDE ( test code = BNP) 54 pg/mL <100 N [id number] 23:43:00* Test Item Value Reference Range Interpretation Comme nts TROPONIN-I (test code = TROPI) < 2.5 pg/mL 27.36-66.23 L Please note: Uni ts and Reference Range have changedFe2020 BASIC METABOLIC [id number] 23:40:00* Test Item Value Reference Range Interpretation [...] Range Apr 2020 - XR CHEST 1 [id number] 23:38:00 [facility] : 1980 Sex: FPatient Name: KAMRAN BELLO Unit No: [id number] EXAMS: CPT CODE: [id number] XR CHEST 1 V 89352 EXAM: - XR CHEST 1 V COMPARISON: None LOCATION: H57 HISTORY: 41 years-old Female with Chest Pain TECHNIQUE: Single AP view of the chest. FINDINGS: Enlarged globular contour of the cardiac silhouette. The lungs are well aerated. No large pneumothorax or pleural effusion. Osseous structures and soft tissues demonstrate no acute findings. The visualized upper abdomen is unremarkable. IMPRESSION: Enlarged globular contour of the cardiac silhouette is suggestive of large pericardial effusion. at 2333 Reported and signed by: YOSEF GODWIN M.D. CC: Avila Nath MD Technologist: Korin Hancock Time: DAP (Gy m2): Air Kerma (mGy): Trscr Dt/Tm: 09/28/2021 (0746) by:[email or web address] Printed Date/Time: 09/28/2021 (3068) [facility] Phys: Avila Slater MD [address] : 1980 Age: 41 Sex: F [address] [id number] Loc: ILA [place] Exam Date: 09/28/2021 Status: ADM IN PH: FAX: PAGE 1 Signed ReportCBC W/AUTO [id number] 23:33:00* Test Item Value Reference Range Interpretation [...] 3/uL 0.0-0.20 N - XR CHEST 2 [id number] 00:00:00 [facility] David : 1980 Sex: F Patient Name: DAVID BELLO HQMOJGANO David Unit No: [id number] EXAMS: CPT CODE: [id number] XR CHEST 2 V 71151 PROCEDURE INFORMATION: Exam: XR Chest Exam date and time: 08/30/2021 11:27 PM Age: 41 years old Clinical indication: Abnormal findings; Other: Pericardial effusion on CT a/p TECHNIQUE:Imaging protocol: XR of the chest. Views: 2 [...] Orig Print D/T: S: 08/31/2021 (0001) [facility] NAME: JAQUAN BELLORILEY HQIRRO N Radiology Department PHYS: Robyn Dahl MD [address] : 1980 AGE: 41 SEX: F [place], [place] [address] LOC: TONIA PHONE #: [phone] EXAM DATE: 08/30/2021 STATUS: REG ER FAX #: [phone] RAD NO: Page 1 Signed ReportB-TYPE NATRIURETIC [id number] 23:45:00* Test Item Value Reference Range Interpretation Comme nts B-TYPE NATRIURETIC PEPTIDE ( test code = BNP) 19.57 pg/mL 0-100 N [id number] 23:31:00* Test Item Value Reference Range Interpretation Comme nts TROPONIN-I (test code = TROPI) 5.6 pg/mL <51.4 N Please Note:New method is in use for measuring Troponin Mar 09 2021Units are pg/mL which differs from the prior testmethodology (ng/mL) by a factor of 1000. COMPREHENSIVE METABOLIC [id number] 22:02:00* Test Item Value Reference Range Interpretation [...] ALKP) 171 units/L 46-116 H CBC W/AUTO [id number] 21:53:00* Test Item Value Reference Range Interpretation [...] NORMAL NORMAL UA RFLX MICR CULT IF [id number] 20:40:00* Test Item Value Reference Range Interpretation [...] for culture: Dysuria/FrequencySpecimen Description: CLEAN CATCHUR HCG [id number] 20:40:00* Test Item Value Reference Range Interpretation Comme nts UR HCG QUAL (test code = HCGQLU) NEGATIVE 1. Very dilute u rine specimens, as indicated by a lowspecific gravity, may not contain employment program representative levels ofhCG. 2. False negative results may occur when the levels of hCGare below the sensitivity level of the test. If is still suspected, a first morningurine specimen should be collected 48 hours later andtested. Indication for culture: Dysuria/FrequencySpecimen Description: CLEAN CATCH- CT ABD PELVIS W/O [id number] 00:00:00 [facility] HQIRRO N : 1980 Sex: F Patient Name: DAVID BELLO HQIRRO N Unit No: [id number] EXAMS: CPT CODE: [id number] CT ABD PELVIS W/O CONT 03230 Radiation Dose CTDIVOL = 11.72 (mGy): DLP = 582.49 (mGy-cm) PROCEDURE INFORMATION: Exam: CT Abdomen And Pelvis [...] view measuring up to 3.5 cm thickness. Eunz-ul-tbkpcklh bibasilar dependent atelectasis present with possible miniscule [...] and 2 mm on the left. [facility] NAME: DAVID BELLO N Radiology Department PHYS: Robyn Dahl MD [address] : 1980 AGE: 41 SEX: Janay [place], [place] [address] LOC: TONIA PHONE #: [phone] EXAM DATE: 08/30/2021 STATUS: REG ER FAX #: [phone] RAD NO: Page 1 Signed Report 1 Patient Name: DAVID BELLO Unit No: [id number] EXAMS: CPT CODE: [id number] CT ABD PELVIS W/O CONT 51326 (Continued) Stomach and bowel: No abnormally dilated small or large bowel loops are seen. Colonic diverticulosis present. Appendix: No evidence of appendicitis. Intraperitoneal space: Right lower quadrant fatty injectionpresent. No free abdominal air. Trace free pelvic fluid likely within physiologic limits. Vasculature: Abdominal aorta is normal in caliber. Lymph nodes: Subcentimeter short axis lymph nodes present.Urinary bladder: Urinary bladder is nearly empty. Reproductive: Unremarkable as visualized. Bones/joints: No suspicious osseous abnormality identified. Soft tissues: No significant abnormality. IMPRESSION: 1. Findings consistent with nephrocalcinosis with nonobstructing right renal calculus. 2. Theureters are not able to be followed in [...] Noonan MD CC: Robyn Henry MD Technologist: Viki Felipe, CTDI: DLP: Trnscrbd D/ (2244) GCD.CPS [facility] NAME: MIRELLA BELLOGUS Hernandez Radiology Department PHYS: Robyn Dahl MD [address] : 1980 AGE: 41 SEX: F [place] [address] LOC: HelenERS PHONE #: [phone] EXAM DATE: 08/30/2021 STATUS: REG ER FAX #: [phone] RAD NO: Page 2 Signed Report 1 Patient Name: EMIR BELLORavi Hernandez Unit No: [id number] EXAMS: CPT CODE: [id number] CT ABD PELVIS W/O CONT 17400 (Continued) Orig Print D/T: S: 08/30/2021 (2245) [facility] NAME: EMIR BELLOGAVIN Hernandez Radiology Department PHYS: Robyn Dahl MD [address] : 1980 AGE: 41 SEX: F [place] [address] LOC: Janay.ERS PHONE #: [phone] EXAM DATE: 08/30/2021 STATUS: REG ER FAX #: [phone] RAD NO: Page 3 Signed Report 1 Notes Date/Time Note Provider Source Referral ID Status Reason Start Date Expiration Date V isits Requested Visits Authorized [id number] Pending Review 01/14/2024 07/12/2024 1 1 [facility]hs[facility]ph7870[facility]-54 11:01:14* [facility]Mlkcarj1474-12-18 11:01:14Upcoming Encounters Scheduled Orders Name Type Priority Associated Diagnoses Orde r Schedule CT abdomen pelvis wo IV contrast Imaging Routine Kidney stone Urinary urgency Expected: 01/14/2024, Expires: 01/13/2025 Urinalysis w/Reflex microscopic Lab Routine Kidney stone Urinary urgency Expected: 01/14/2024 (Approximate), Expires: 01/13/2025 Urine Culture Microbiology Routine Kidney stone Urinary urgency Expected: 01/14/2024 (Approximate), Expires: 01/13/2025 Health Maintenance Due Date Last Done Comments Lipid Panel 1980 Pneumococcal Vaccine: Pediatrics (0 to 5 Years) and At-Risk Patients (6 to 64 Years) (1 of 2 - PCV) 1985 Diabetes: Foot Exam 1989 Diabetes: Retinopathy Screening 1989 DTaP/Tdap/Td Vaccines (1 - Tdap) 1998 Hepatitis A Vaccines (1 of 2 - Risk 2-dose series) 1998 Hepatitis B Vaccines (1 of 3 - 19+ 3-dose series) 1998 Pap Smear 2000 Cervical Cancer Screening 2009 HPV/Cotest 2009 Mammogram 2019 Diabetes: Hemoglobin A1C 06/08/2024 024, 11/22/2023, 03/07/2023 Influenza Vaccine Completed 12/09/2023 HIB Vaccines Aged Out No longer eligi ble based on patient's age to complete this topic HPV Vaccines Aged Out No longer eligi ble based on patient's age to complete this topic IPV Vaccines Aged Out No longer eligi ble based on patient's age to complete this topic Meningococcal Vaccine Aged Out No laura farzad eligible based on patient's age to complete this topic Rotavirus Vaccines Aged Out No longer eligible based on patient's age to complete this topic [facility] HospitalObuqbzj4944-26-33 11:01:14 Diagnosis Kidney stone - Primary Calculus of kidney Urinary urgency Urgency of urination [facility] HospitalXybshus6965-63-37 11:01:14 [facility] HospitalSpqlatc5500-89-99 11:28:22 Patient is requesting to speak with clinical team. She sent the following information via text. So I was supposed to bring in another disk and the last month had been hectic and I never got the chance. I was told be the ER that I had another stone. I was having some symptoms and had another bad UTI. Well I took the antibiotic but I don't think I ever passed the stone. I've had a lot of pressure and burning and when I wipe it's like pink spotting. I feel like it's stuck, because it's been a couple of weeks [facility] HospitalXgvxwvm5169-74-26 00:04:34 [facility] HospitalFbnglcr3804-52-13 00:04:34 [facility] HospitalMaaaqex0164-09-07 00:03:30 [facility] HospitalXzygkmy5250-77-68 00:03:30 [facility] HospitalXmqdofo6929-90-49 08:29:53* [facility] HospitalUgcqwzm7347-87-60 08:29:53 [facility] HospitalNkvzvpp8738-43-99 08:29:53 [facility] HospitalPdmiojf3381-11-21 10:29:36* [facility] HospitalFvjihgh6914-81-71 10:29:36* Kia Garcia MA - 12/09/2023 2:00 PM CDT Subjective Patient ID: Mirella Bello is a 43 y.o. female who presents for Fatigue and Insomnia. HPI Review of Systems Objective Physical Exam: Vitals: 12/10/23 0827 BP: 129/87 Pulse: 73 Assessment & Plan Type 2 diabetes mellitus without complication, without long-term current use of insulin ([facility]) ([facility]) Orders: Hemoglobin A1c; Future Other orders Flu vaccine (IIV3) greater than or equal to 3 years old, preservative free IM * Narciso Tolliver MD - 12/09/2023 2:00 PM CDT Subjective Patient ID: Mirella Bello is a 43 y.o. female who presents for Fatigue and Insomnia. Fatigue Associated symptoms include fatigue. Insomnia Associated symptoms include fatigue. Pt is here to follow up on DM. She says that she recently had lithotripsy and had a stent removal for her kidney stones. She had been off of her ozempic for about 3 weeks or more. When she restarted it,she had severe nausea, vomiting and diarrhea. She then went to the ER. She would like to see if she still needs it because she does not want to go back on ozempic. She says in the ER they told her that she had something in her kidney so she will reach out to urology for that. Review of Systems Constitutional: Positive for fatigue. Respiratory: Negative. Cardiovascular: Negative. Gastrointestinal: Negative. Psychiatric/Behavioral: The patient has insomnia. Objective Physical Exam: Cardiovascular: Rate and Rhythm: Normal rate and regular rhythm. Pulses: Normal pulses. Heart sounds: Normal heart sounds. Pulmonary: Breath sounds: Normal breath sounds. Musculoskeletal: Cervical back: Normal range of motion and neck supple. Neurological: Mental Status: She is alert. Assessment & Plan Type 2 diabetes mellitus without complication, without long-term current use of insulin (CMS/HCC) ([facility]) Orders: Hemoglobin A1c; Future Other orders Flu vaccine (IIV3) greater than or equal to 3 years old, preservative free IM [facility] HospitalQthtxop1833-01-67 10:29:36 [facility] HospitalUwlzrss4832-30-86 10:29:36 Diagnosis Type 2 diabetes mellitus wit hout complication, without long-term current use of insulin (CMS/HCC) ([facility]) - Primary [facility] HospitalEjifgaw3343-58-51 10:29:36 [facility] HospitalImynxks1196-78-66 23:55:23* [facility] HospitalUejijjl3543-90-55 23:55:23 [facility] HospitalVlgmstc9679-09-41 23:55:23 [place] 262674-09-06 14:37:47* [facility] HospitalZckszso0215-29-66 14:37:47* Deanna Argueta RN - 11/29/2023 1:30 PM CDT Presents for string stent removal. Tape removed from leg and stent removed with 1 grande motion. States she feels better already. [facility]Cexiblg9552-69-53 14:37:47 [facility] HospitalErftcaq1863-11-37 14:37:47 Diagnosis Kidney stone Calculus of kidney [facility] HospitalEgxxisi1324-27-74 14:37:47 [facility] HospitalCuuttow1751-54-85 05:15:23Upcoming Encounters Health Maintenance Due Date Last Done Comments Lipid Panel 1979 Pneumococcal Vaccine: Pediat rics (0 to 5 Years) and At-Risk Patients (6 to 64 Years) (1 of 2 - PCV) 1985 Diabetes: Foot Exam 1989 Diabetes: Retinopathy Screening 1989 DTaP/Tdap/Td Vaccines (1 - Tdap) 1998 Hepatitis A Vaccines (1 of 2 - Risk 2-dose series) 1998 Hepatitis B Vaccines (1 of 3 - 19+ 3-dose series) 1998 Pap Smear 2000 Cervical Cancer Screening 2009 HPV/Cotest 2009 Mammogram 2019 Diabetes: Hemoglobin A1C 06/06/2023 03/07/2023 Influenza Vaccine (#1) 2023 HIB Vaccines Aged Out No longer eligi ble based on patient's age to complete this topic HPV Vaccines Aged Out No longer eligi ble based on patient's age to complete this topic IPV Vaccines Aged Out No longer eligi ble based on patient's age to complete this topic Meningococcal Vaccine Aged Out No laura farzad eligible based on patient's age to complete this topic Rotavirus Vaccines Aged Out No longer eligible based on patient's age to complete this topic [facility] HospitalZmdxatm3662-03-52 05:15:23 [facility] HospitalUvptofi6676-67-30 16:30:26* [facility] HospitalAjpufpa7521-15-23 16:30:26Upcoming Encounters Scheduled Orders Name Type Priority Associated Diagnoses Orde r Schedule Basic metabolic panel Lab Routine Kidney stone E xpected: 11/20/2023 (Approximate), Expires: 11/19/2024 CBC and differential Lab Routine Kidney stone Ex pected: 11/20/2023 (Approximate), Expires: 11/19/2024 Urine culture Microbiology Routine Kidney stone Expecte d: 11/20/2023 (Approximate), Expires: 11/19/2024 Health Maintenance Due Date Last Done Comments Lipid Panel 1979 Pneumococcal Vaccine: Pediat rics (0 to 5 Years) and At-Risk Patients (6 to 64 Years) (1 of 2 - PCV) 1985 Diabetes: Foot Exam 1989 Diabetes: Retinopathy Screening 1989 DTaP/Tdap/Td Vaccines (1 - Tdap) 1998 Hepatitis A Vaccines (1 of 2 - Risk 2-dose series) 1998 Hepatitis B Vaccines (1 of 3 - 19+ 3-dose series) 1998 Pap Smear 2000 Cervical Cancer Screening 2009 HPV/Cotest 2009 Mammogram 2019 Diabetes: Hemoglobin A1C 06/06/2023 03/07/2023 Influenza Vaccine (#1) 2023 HIB Vaccines Aged Out No longer eligi ble based on patient's age to complete this topic HPV Vaccines Aged Out No longer eligi ble based on patient's age to complete this topic IPV Vaccines Aged Out No longer eligi ble based on patient's age to complete this topic Meningococcal Vaccine Aged Out No laura farzad eligible based on patient's age to complete this topic Rotavirus Vaccines Aged Out No longer eligible based on patient's age to complete this topic [facility] HospitalTjtjtzj8764-97-52 16:30:26 Diagnosis Kidney stone Calculus of kidney [facility] HospitalQkckkdb7082-02-60 16:30:26 [facility] HospitalDhbfosf3476-08-30 14:42:48* [facility] HospitalXsewlxi4236-08-79 14:42:48* Anya Hernandez MD - 11/14/2023 1:40 PM CDT Subjective Mirella Kohlisummer Bello is a 43 y.o. who presents today follow up of Nephrolithiasis 42-year-old female presents for evaluation of recurrent UTIs and kidney stones. She states in 2019 she was hospitalized with urosepsis. She has not undergone 2 procedures for kidney stones most recent December 15 for 1.8 cm stone. She was told that "everything was removed". An ultrasound following demonstrated a 1.3 cm. She continues to have right-sided flank pain. It is nonradiating. She reports multidrug-resistant UTIs. Currently she reports intermittent dysuria and sensation of incomplete emptying. She had a possible fever last week but Will plan sick from other causes as well She did have an ultrasound on January 03 that demonstrated hydronephrosis We will need to obtain additional records from her prior urologist we will plan to proceed with CT abdomen pelvis with and without contrast to evaluate for any obstruction and stone burden May need cystoscopy in the future for UTI UTI prevention handout given Discussed hydration, constipation management, Cranberry/d-mannose supplement 02/27/23 Presents today for follow-up. She had a CT scan which demonstrates a 1 cm right lower pole kidney stone. I have not received surgical records from her prior urologist She reports intermittent right-sided flank and abdominal pain. She reports dysuria. We discussed treatment options including observation and surgical management. Will plan for cystoscopy retrograde pyelogram ureteroscopy laser lithotripsy of the lower pole stone. May be difficult to access and failure of treatment was reviewed with the patient. Ucx today 11/14/23Presents for follow up of kidney stone Patient went to the emergency department on 11/02/2023 which was notable for millimeter distal right ureteral calculus 1 cm proximal to the UVJ with associated mild hydronephrosis. 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 She then had a repeat CT scan on 11/09/2023 which demonstrated persistent mild right hydronephrosis with a calcification at the right distal ureter measuring 4 mm in the same position. Has been reviewed and uploaded into [employer] Discussed with her treatment options. We discussed the continuation of medical expulsive therapy versus surgical intervention. We discussed that given the stone position there a treatment recommendation would be with ureteroscopy laser lithotripsy and stent placement The risks, benefits, and some of the possible complications of surgical treatments of calculi including cystoscopy, ureteroscopy, renoscopy, laser lithotripsy, stent insertion was discussed with the patient. They understand that if the scope is not able to be advanced a stent will be placed and a staged procedure will be done. They also understand that not all stones may be treated as limited by stone location and visibility. Risks of pain, infection, damage to surrounding structures and then need for multiple procedures were reviewed. Also, symptoms associated with stent discomfort were reviewed. All questions were answered. The patient gave fully informed consent to proceed with a ureteroscopy with or without laser lithotripsy with stone extraction for the treatment of their kidney stones. The patient was given instructions to call for abdominal pain, pelvic pain, perirectal pain, nausea, vomiting, diarrhea, fever over 100 degrees F, chills, hematuria, dysuria, frequency, urgency, or urge incontinence. [facility] Female Bladder Questionnaire11/14/2023 8:33 AM CDT - Filed by Patient When do you leak urine? When coughing, sneezing, laughing, or exercising; When I have a strong urge to urinate; During sexual intercourse On average, how much do you leak? A medium amount (tablespoons) Has your leakage worsened over the past year? No Do you ever leak urine without awareness it's happening? No Do you wear a pad or protective undergarment due to leaking? Yes How many times a day do you change your pad or undergarment? 2 Select all that apply: My urge to urinate is so strong, I stop what I'm doing and weston to the bathroom; After urinating, I don't feel like I've completely emptied my bladder How many times a day do you urinate, on average? 3 How many times do you urinate after going to bed, on average? 1 Select all that apply: I have a problem with vaginal dryness Past HistoryNo past medical history on file. There is no problem list on file for this patient. Past Surgical History:Procedure Laterality Date CYSTOSCOPY INSERTION / REMOVAL STENT / STONE Right 03/11/2023 CYSTOSCOPY, RETROGRADE PYELOGRAM, URETEROSCOPY WITH HOLMIUM LASER LITHOTRIPSY, STONE EXTRACTION, STENT PLACEMENT, RIGHT. No family history on file.Allergies Allergen Reactions Ertapenem Hives, Itching, Palpitations and Unknown Iodinated Contrast Media Hives and Itching Sumatriptan Anxiety, Dizziness, Headache, Hives, Itching and Unknown ObjectiveThere were no vitals taken for this visit. General Appearance: Alert, cooperative, no distress, appropriate for age HEENT: Normocephalic, EOM's intact, conjunctiva and corneas clear, moist mucous membranes Lungs: Respirations unlabored Back: no CVA tenderness Abdomen: Soft, non-tender, bowel sounds active all four quadrants, no mass, or organomegaly Musculoskeletal: Tone and strength strong and symmetrical, all extremities Skin/Hair/Nails: Skin warm, dry, and intact, no rashes or abnormal dyspigmentation Neurologic: Alert and oriented x3 Assessment/PlanDiagnoses and all orders for this visit: Kidney stone Hydronephrosis, unspecified hydronephrosis type E&M visit today is associated with current or anticipated ongoing medical care services related to a patient's single, serious condition or a complex condition. [facility] HospitalNedhuei0497-43-29 14:42:48 [place] 262674-08-22 14:42:48 Diagnosis Kidney stone - Primary Calculus of kidney Hydronephrosis, unspecified hydronephrosis type [facility] HospitalVwnrgsv5062-45-54 14:42:48 [facility] HospitalDccjrrg1954-05-41 08:23:30 [facility] HospitalBiabyck5142-95-79 08:23:30 [facility] HospitalKsvjrto1598-55-13 16:20:09Scheduled Referrals Health Maintenance Due Date Last Done Comments Lipid Panel 1979 Pneumococcal Vaccine: Pediat rics (0 to 5 Years) and At-Risk Patients (6 to 64 Years) (1 of 2 - PCV) 1985 Diabetes: Foot Exam 1989 Diabetes: Retinopathy Screening 1989 DTaP/Tdap/Td Vaccines (1 - Tdap) 1998 Hepatitis A Vaccines (1 of 2 - Risk 2-dose series) 1998 Hepatitis B Vaccines (1 of 3 - 19+ 3-dose series) 1998 Pap Smear 2000 Cervical Cancer Screening 2009 HPV/Cotest 2009 Mammogram 2019 Diabetes: Hemoglobin A1C 06/06/2023 03/07/2023 Influenza Vaccine (#1) 2023 HIB Vaccines Aged Out No longer eligi ble based on patient's age to complete this topic HPV Vaccines Aged Out No longer eligi ble based on patient's age to complete this topic IPV Vaccines Aged Out No longer eligi ble based on patient's age to complete this topic Meningococcal Vaccine Aged Out No laura farzad eligible based on patient's age to complete this topic Rotavirus Vaccines Aged Out No longer eligible based on patient's age to complete this topic [facility] HospitalGdvmbix8954-07-13 16:20:09 Diagnosis Hyperthyroidism - Primary Thyrotoxicosis without mention of goiter or other cause, without mention of thyrotoxic crisis or storm [facility] HospitalVyneugl1079-31-29 16:20:09 [facility] HospitalDhjofxy0813-02-14 16:20:09* Consultation (Routine) - Pending Review Specialty Diagnoses / Procedures Referred By Contac t Referred To Contact Endocrinology Diagnoses Hyperthyroidism Procedures GA OFFICE/OUTPATIENT [facility] 60-74 MINUTES Narciso Tolliver MD [address] [facility] [address] [place] [address] Azul Porter MD [address] [facility] [address] [place] [address] Referral ID Status Reason Start Date Expiration Date Visits Requested Visits Authorized [id number] Pending Review Specialty Services Required 11/05/2023 05/03/2024 1 1 [facility] HospitalDmpxpzl5137-33-40 04:07:00 [facility] ([facility]) EMERGENCY PROVIDER REPORT REPORT#:[id number] REPORT STATUS: Signed DATE:05/15/23 TIME:406 PATIENT: DAVID BELLO #: [id number] ROOM/BED: : 79 AGE: 43 SEX: F PCP PHYS: Narciso Tolliver MD SERVICE AUTHOR: Samia Saldana DO * ALL edits or amendments must be made on the electronic/computer document * HPI-Palpit/Arrhyth Free Text HPI Notes Free Text HPI Notes 43 years old female with history of SVT status post ablation 2013 at [place] presents to the emergency room with palpitation the whole last 24 hours and patient was concerned and about chest pain and shortness of breath, as per EMS patient had bigeminy and her heart rate dropped to 40 rate, patient reported that she is not on any medication for arrhythmia, patient reported that she has follow-up at [facility] with Dr.Nawar Guillen [phone]. Patient denies fever or chills. General Initial [...] Ox 100 05/14 2151 B/P 125/75 05/14 2151 B/P Mean 91 05/14 2151 O2 Delivery [...] Impressions: RADIOLOGY - XR CHEST 1 V 05/145 Report Impression - Status: SIGNED Entered: 05/14/2023 4562 IMPRESSION: No acute finding Impression By: Jim - Rosalia Torre M.D. 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 [facility], patient after multiple discussions refused to [...] Ox 100 05/14 2151 B/P 125/75 05/14 2151 B/P Mean 91 05/14 2151 O2 Delivery [...] Hospitalize Hosp Physician Name Glen Nava MD [facility] Physician Hospitalist Request Time 415 Request Date 05/15/23 )( Accepts Hospitalization Yes )( Reason for Hospitalization chest pain , palpitation )( Accepted Time 415 )( Accepted Date 05/15/23 Call Information will see patient, agrees with eval, agrees with plan at 1005 RPT #: [id number] END OF [id number] 15:11:00 [facility] ([facility]) Hospitalist Discharge Summary REPORT#:[id number] REPORT STATUS: Signed REPORT INITIALIZATION DATE:04/15/23 TIME:1510 PATIENT: DAVID BELLO HQIRRO JUAN PABLO UNIT #: [id number] ROOM/BED: [place] [address] : 79 AGE: 43 SEX: F ATTEND: Bj Oneal MD ADM AUTHOR: Bj Oneal MD REPT SERVICE DT/TIME: 04/15/23 1511 * ALL edits or amendments must be [...] edema, no cyanosis Musculoskeletal: normal muscle mass Neuro/DOWNSTREAM BIOMANUFACTURING TECHNICIAN: alert, oriented X 3, normal speech, no motor deficits, no sensory deficits Skin: dry, intact, normal color, normal temperature, no rash Psychiatry: normal affect Discharge Instructions PCP PCP follow-up: PCP: Narciso Tolliver MD Discharge to: [facility] Additional Discharge Routines: PCP Follow-Up Diet: Regular Discharge management: greater than 30 mins Follow-up Appointments PCP follow-up: PCP: Narciso Tolliver MD PCP follow up timeframe: In 1-2 weeks at 1510 RPT #: [id number] END OF REPORT [id number] 09:02:00 [facility] ([facility] Infectious Dis. Progress Note REPORT#:[id number] REPORT STATUS: Signed REPORT INITIALIZATION DATE:04/15/23 TIME:901 PATIENT: DAVID BELLO UNIT #: [id number] ROOM/BED: [place] [address] : 79 AGE: 43 SEX: F ATTEND: [...] Result Date Time Pulse Ox 97 04/15 07 B/P 143/86 04/15 736 B/P Mean 105.1 04/15 07 O2 Delivery Room air 04/15 736 Temp 37.0 04/15 07 Pulse 64 04/15 0737 Resp 16 04/15 [...] no guarding Extremities: no clubbing, no cyanosis Neuro/DOWNSTREAM BIOMANUFACTURING TECHNICIAN: alert, oriented X 3, CNII-XII intact, normal [...] abxs are arranged. at 1107 RPT #: [id number] END OF REPORT [id number] 20:54:00 [facility] ([facility]) Hospitalist Progress Note REPORT#:[id number] REPORT STATUS: Signed REPORT INITIALIZATION DATE:04/14/23 TIME:2053 PATIENT: DAVID BELLO UNIT #: [id number] ROOM/BED: [place] [address] : 79 AGE: 43 SEX: F ATTEND: [...] edema, no cyanosis Musculoskeletal: normal muscle mass Neuro/DOWNSTREAM BIOMANUFACTURING TECHNICIAN: alert, oriented X 3, normal speech, no [...] ambulatory CODE STATUS: Full code at 2056 [facility] #: [id number] END OF REPORT [id number] 16:57:00 [facility] ([facility]) Hospitalist Progress Note REPORT#:[id number] REPORT STATUS: Signed REPORT INITIALIZATION DATE:04/13/23 TIME:1656 PATIENT: DAVID BELLO UNIT #: [id number] ROOM/BED: [place] [address] : 79 AGE: 43 SEX: F ATTEND: [...] edema, no cyanosis Musculoskeletal: normal muscle mass Neuro/DOWNSTREAM BIOMANUFACTURING TECHNICIAN: alert, oriented X 3, normal speech, no [...] STATUS: Full code at 1701 RPT #: [id number] END OF REPORT [id number] 10:23:00 [facility] ([facility]) Infectious Dis. Progress Note REPORT#:[id number] REPORT STATUS: Signed REPORT INITIALIZATION DATE:04/13/23 TIME:1023 PATIENT: DAVID BELLO UNIT #: [id number] ROOM/BED: [place] [address] : 79 AGE: 43 SEX: F ATTEND: [...] clubbing, no cyanosis Musculoskeletal: no joint swelling Neuro/DOWNSTREAM BIOMANUFACTURING TECHNICIAN: alert, oriented X 3, CNII-XII intact, normal [...] home IV abxs are arranged. at 1026 [facility] #: [id number] END OF REPORT [id number] 08:10:00 [facility] ([facility]) Hospitalist Progress Note REPORT#:[id number] REPORT STATUS: Signed REPORT INITIALIZATION DATE:04/13/23 TIME:809 PATIENT: DAVID BELLO UNIT #: [id number] ROOM/BED: [place] [address] : 79 AGE: 43 SEX: F ATTEND: [...] edema, no cyanosis Musculoskeletal: normal muscle mass Neuro/DOWNSTREAM BIOMANUFACTURING TECHNICIAN: alert, oriented X 3, normal speech, no [...] ambulatory CODE STATUS: Full code at 0812 [facility] #: [id number] END OF REPORT [id number] 12:18:00 [facility] ([facility]) Infectious Dis. Progress Note REPORT#:[id number] REPORT STATUS: Signed REPORT INITIALIZATION DATE:04/12/23 TIME:1217 PATIENT: DAVID BELLO HQLONNIE ALMEIDA UNIT #: [id number] ROOM/BED: [place] [address] : 79 AGE: 43 SEX: F ATTEND: Bj Oneal MD ADM AUTHOR: Paul Garrett MD REPT SERVICE DT/TIME: 04/12/23 1218 [...] no guarding Extremities: no clubbing, no cyanosis Neuro/DOWNSTREAM BIOMANUFACTURING TECHNICIAN: alert, oriented X 3, CNII-XII intact, normal speech Skin: normal turgor, no rash Diagnosis, Assessment Plan Free Text A P: Laboratory Tests 04/11/23 042: [Embedded Image Not Available] 04/11/23426: [Embedded Image [...] cxs remain neg. at 1702 RPT #: [id number] END OF REPORT [id number] 21:07:[id number] [address] PATIENT NAME: DAVID BELLO ADMIT DATE: 04/08/23 ACCOUNT NO: [id number] ROOM NO: [facility] AGE: 43 REPORT TYPE: eECHOCARDIOGRAM REPORT SEX: F ADMITTING PHYSICIAN: Bj Oneal MD ATTENDING PHYSICIAN: Bj Oneal MD *[facility]* [address] [place], [place] [address] Transthoracic Echocardiogram Patient: David Bello Study Date: 04/10/2023 BP: 119 / 74 URN: [id number] Location: : 1980 Age: 43 Gender: F Height: 65 in / 165.1 cm Weight: 208 lb / 94.3 kg BMI/BSA: 34.6 kg/m 2 / 2.12 m 2 *Ordering Physician: * Paul Garrett *Interpreting Physician: * Joseph Nava MD *Tooth Cutter Contact Wheel: * Marixa Duenas Indications: R/o Endocarditis. Study [...] ratio, MM 1.59 --------- PATIENT NAME: DAVID BELLO DIANNELONNIE JUAN PABLO Right atrium Value Ref Area, [...] 5.57 m/sec --------- Pulmonic valve Value Ref GA peak v 1.05 m/sec --------- GA peak grad 4 mm Hg --------- Tricuspid valve Value Ref TR peak v 2.9 m/sec <=2.8 Peak RV-RA grad, S 35 mm Hg --------- Aortic root Value Ref Root diam, ED MM 2.9 cm --------- Systemic veins Value Ref Estimated CVP 5 mm Hg --------- Pulmonary veins Value Ref A rev duration 107 ms --------- Conclusions PATIENT NAME: DAVID BELLO HQMOJGANO JUAN PABLO Summary: 1. Left ventricle: The [...] 21:07 at 2107 PATIENT NAME: DAVID BELLO 2023-04-11 19:40:00 [facility] Hospitalist Progress Note REPORT#:[id number] REPORT STATUS: Signed REPORT INITIALIZATION DATE:04/11/23 TIME:1939 PATIENT: DAVID BELLO UNIT #: [id number] ROOM/BED: [place] [address] : 79 AGE: 43 SEX: F ATTEND: [...] edema, no cyanosis Musculoskeletal: normal muscle mass Neuro/DOWNSTREAM BIOMANUFACTURING TECHNICIAN: alert, oriented X 3, normal speech, no [...] STATUS: Full code at 1948 RPT #: [id number] END OF REPORT [id number] 12:53:00 [facility] ([facility]) Infectious Dis. Progress Note REPORT#:[id number] REPORT STATUS: Signed REPORT INITIALIZATION DATE:04/11/23 TIME:1253 PATIENT: DAVID BELLO HQLONNIE ALMEIDA UNIT #: [id number] ROOM/BED: [place] [address] : 79 AGE: 43 SEX: F ATTEND: [...] clubbing, no cyanosis Musculoskeletal: no joint swelling Neuro/DOWNSTREAM BIOMANUFACTURING TECHNICIAN: alert, oriented X 3, CNII-XII intact, normal speech Skin: normal turgor, no rash Diagnosis, Assessment Plan Free Text A P: Laboratory Tests 04/11/23 0428: [Embedded Image Not Available] 04/11/23 0427: [Embedded Image Not Available] Imaging: CTAP reviewed [...] for 48 h. at 1446 RPT #: [id number] END OF REPORT [id number] 22:17:00 [facility]) Urology Progress Note REPORT#:[id number] REPORT STATUS: Signed REPORT INITIALIZATION DATE:04/10/23 TIME:2216 PATIENT: DAVID BELLO UNIT #: [id number] ROOM/BED: [place] [address] : 79 AGE: 43 SEX: F ATTEND: [...] Temp 98.2 04/10 1929 Pulse 77 04/10 1930 Resp 16 04/10 1929 O2 Flow Rate [...] follow up cultures at 2221 RPT #: [id number] END OF REPORT [id number] 17:39:00 [facility] ([facility]) Hospitalist Progress Note REPORT#:[id number] REPORT STATUS: Signed REPORT INITIALIZATION DATE:04/10/23 TIME:1738 PATIENT: DAVID BELLO UNIT #: [id number] ROOM/BED: [place] [address] : 79 AGE: 43 SEX: F ATTEND: [...] edema, no cyanosis Musculoskeletal: normal muscle mass Neuro/DOWNSTREAM BIOMANUFACTURING TECHNICIAN: alert, oriented X 3, normal speech, no [...] STATUS: Full code at 1742 RPT #: [id number] END OF REPORT [id number] 13:47:00 [facility] ([facility]) Infectious Dis. Progress Note REPORT#:[id number] REPORT STATUS: Signed REPORT INITIALIZATION DATE:04/10/23 TIME:1346 PATIENT: DAVID BELLO UNIT #: [id number] ROOM/BED: [place] [address] : 79 AGE: 43 SEX: F ATTEND: [...] clubbing, no cyanosis Musculoskeletal: no joint swelling Neuro/DOWNSTREAM BIOMANUFACTURING TECHNICIAN: alert, oriented X 3, CNII-XII intact, normal [...] for 48 h. at 1351 RPT #: [id number] END OF REPORT [id number] 01:53:00 [facility]) Clinical Note REPORT#:[id number] REPORT STATUS: Signed REPORT INITIALIZATION DATE:04/10/23 TIME:152 PATIENT: DAVID BELLO UNIT #: [id number] ROOM/BED: [place] [address] : 79 AGE: 43 SEX: F ATTEND: Bj Oneal MD ADM AUTHOR: Torsten Craig REPT SERVICE DT/TIME: 04/10/23152 * ALL edits or amendments must be [...] now. at 0208 at 0820 RPT #: [id number] END OF REPORT [id number] 23:10:[id number] [facility] [address] [place] [address] PATIENT NAME: DAVID BELLO ADMIT DATE: 04/08/23 ACCOUNT NO: [id number] ROOM NO: [facility] AGE: 43 REPORT TYPE: OPERATIVE REPORT SEX: F ADMITTING PHYSICIAN: jB Oneal MD ATTENDING PHYSICIAN: Bj Oneal MD [...] PLACED: None. SPECIMEN OBTAINED: Urine for culture. HOT STICK MAN: None. INDICATIONS FOR PROCEDURE: David Bello is [...] for this now. PATIENT NAME: DAVID BELLO PROCEDURE IN DETAIL: The patient brought to the OR on 04/09/2023. She had anesthesia inducted without any complication. She was placed into a dorsal lithotomy position and the genitalia was prepped and draped in the usual standard sterile manner. At this point, I inserted a 22-Cymraes rigid cystoscope into the bladder. I identified the previously placed right ureteral stent, stent had migrated distally into the bladder. I placed a wire alongside the stent and pulled the prior stent out intact. I now advanced a 7-Cymraes ureteroscope alongside the stent. I navigated this [...] Dictated: 04/09/2023 23:10:00 Date Transcribed: 04/09/2023 23:29:35 [facility]/QUS Receipt ID: [id number] Authenticated by Brett Rodriguez MD On 04/22/2023 08:30:41 PM at 0830 PATIENT NAME: DAVID BELLO 2023-04-09 15:45:00 [facility] Infect Disease Consult Note REPORT#:[id number] REPORT STATUS: Signed REPORT INITIALIZATION DATE:04/09/23 TIME:1544 PATIENT: DAVID BELLO UNIT #: [id number] ROOM/BED: [place] [address] : 79 AGE: 43 SEX: F ATTEND: Bj Oneal MD ADM AUTHOR: Paul Garrett MD REPT SERVICE DT/TIME: 04/09/23 4416 * ALL edits or amendments must be [...] clubbing, no cyanosis Musculoskeletal: no joint swelling Neuro/DOWNSTREAM BIOMANUFACTURING TECHNICIAN: alert, oriented X 3, CNII-XII intact, normal [...] for this consult. at 1724 RPT #: [id number] END OF REPORT [id number] 11:26:00 [facility] ([facility]) Post Anesthesia Evaluation REPORT#:[id number] REPORT STATUS: Signed REPORT INITIALIZATION DATE:04/09/23 TIME:1125 PATIENT: DAVID BELLO UNIT #: [id number] ROOM/BED: [place] [address] : 79 AGE: 43 SEX: F ATTEND: Bj Oneal MD ADM AUTHOR: Radha Olivier MD REPT SERVICE DT/TIME: 04/09/23 1126 * ALL edits or amendments must be made on the electronic/computer document * Post Anesthesia Evaluation Anes. changes from pre-op eval ORM Surgeries: Surgery Date and Time: 04/09/2023 0930 Primary Procedure: CYSTOSCOPY URETEROSCOPY Anesthetic: general LMA [...] Temp 36.6 04/09 1047 B/P Mean 79.3 01/16 0726 Cardiovascular: no change, CV system stable, vital signs stable Respiratory/Airway: respiratory system stable, maintains without support Pain: adequately controlled Hydration: euvolemic Temp status: normothermic Presence of N/V: no Anesthesia complications: no Conclusions: no apparent anes. issues at 1127 RPT #: [id number] END OF REPORT [id number] 10:58:00 [facility] ([facility]) Brief Op Note REPORT#:[id number] REPORT STATUS: Signed REPORT INITIALIZATION DATE:04/09/23 TIME:105 PATIENT: DAVID BELLO UNIT #: [id number] ROOM/BED: [place] [address] : 79 AGE: 43 SEX: F ATTEND: Bj Oneal MD ADM AUTHOR: Brett Rodriguez MD REPT SERVICE DT/TIME: 04/09/23 1058 * ALL edits or amendments must be made on the electronic/computer document * Op/Inv Proc Note - Brief Pre-procedure diagnosis: migrated ureteral stent, ureteral calculi R Post-procedure diagnosis: same as pre procedure dx Procedures performed: right ureteroscopy, stent removal, cystoscopy Primary Surgeon: Jennifer Adult Psychiatrist(s): none Findings: no ureteral calculi to proximal ureter Complications: none Estimated blood loss in ml's: none Specimens removed/altered: none Drain(s): None at 1059 RPT #: [id number] END OF REPORT [id number] 10:41:00 [facility] ([facility]) Hospitalist Progress Note REPORT#:[id number] REPORT STATUS: Signed REPORT INITIALIZATION DATE:04/09/23 TIME:1041 PATIENT: DAVID BELLO UNIT #: [id number] ROOM/BED: [place] [address] : 79 AGE: 43 SEX: F ATTEND: [...] edema, no cyanosis Musculoskeletal: normal muscle mass Neuro/DOWNSTREAM BIOMANUFACTURING TECHNICIAN: alert, oriented X 3, normal speech, no [...] procedure CODE STATUS: Full code at 1048 [facility] #: [id number] END OF REPORT [id number]:27:[id number] [facility] [address] [place] [address] PATIENT NAME: DAVID BELLO HQIRRO JUAN PABLO ADMIT DATE: 04/08/23 ACCOUNT NO: [id number] ROOM NO: S203 AGE: 43 REPORT TYPE: CONSULTATION SEX: F [...] Dictated: 04/09/2023 09:27:59 Date Transcribed: 04/09/2023 10:28:15 [facility] Receipt ID: [id number] Authenticated by Brett Rodriguez MD On 04/22/2023 08:30:55 PM at 0830 PATIENT NAME: DAVID BELLO 2023-04-08 20:20:00 [facility] ([facility]) Hospitalist History Physical REPORT#:[id number] REPORT STATUS: Signed REPORT INITIALIZATION DATE:04/08/23 TIME:2019 PATIENT: DAVID BELLO HQIRRO JUAN PABLO UNIT #: [id number] ROOM/BED: [place] [address] : 79 AGE: 43 SEX: F ATTEND: Bj Oneal MD ADM AUTHOR: Bj Oneal MD REPT SERVICE DT/TIME: 04/08/232019 * ALL edits or amendments must be made on the electronic/computer document * History of Present Illness HPI Chief complaint: Right flank pain PCP: PCP: Narciso Tolliver MD HPI: Ms. Bello is a [...] edema, no cyanosis Musculoskeletal: normal muscle mass Neuro/DOWNSTREAM BIOMANUFACTURING TECHNICIAN: alert, oriented X 3, normal speech, no [...] STATUS: Full code at 0741 RPT #: [id number] END OF REPORT [id number] 09:52:00 [facility] ([facility]) EMERGENCY PROVIDER REPORT REPORT#:[id number] REPORT STATUS: Signed DATE:04/08/23 TIME:951 PATIENT: DAVID BELLO #: [id number] ROOM/BED: [place] [address] : 79 AGE: 43 SEX: F PCP PHYS: Narciso Tolliver MD SERVICE AUTHOR: Trinh Schumacher * [...] was placed last month by urologist at [facility]; ever, her previous urologist is Dr. [...] No palpable masses or pulsetile masses. Negative [place] Sign. No TTP at [place] bilateral [...] - 7.0 pH UNITS) 7.0 Ur Specific Kimball (1.005 - 1.030 SG) 1.010 Urine Protein [...] (Auto) (20.5 - 51.1 %) 8.0 L Ulster % (Auto) (1.7 - 9.3 %) 7.3 Eos % (Auto) (0.0 - 6.0 %) 0.1 Baso % (Auto) (0.0 - 2.0 %) 0.2 Neut # (Auto) (1.8 - 7.6 K/mm3) 8.4 H Lymph # (Auto) (0.6 - 3.2 K/mm3) 0.8 Ulster # (Auto) (0.3 - 1.1 K/mm3) 0.7 [...] 05/08 1729 Consultation Consultation 1 Referral/Consult Name Anya Hernandez MD Wrapper Stripper Called Urology Requested Call Time 1230 Requested Call Date 04/08/23 Call Returned Call not returned Consultation 2 Referral/Consult Name ; Anya Hernandez MD Wrapper Stripper Called Urology Requested Call Time 1337 Requested Call Date 04/08/23 Call Returned Call not returned Consultation 3 Referral/Consult Name ; Brett Rodriguez MD Wrapper Stripper Called Urology Wrapper Stripper Discussed with store sales consultant, will take to [place] tomorrow Requested Call Time 1716 Requested Call Date 04/08/23 Call Returned Call returned Call Returned Time 1716 Call Returned Date 04/08/23 MDM-Complexity Severity/Chronicity Evaluation [...] 04/08 1304 O2 Delivery Room air 04/08 130 Temp 37.4 04/08 1304 Pulse 98 04/08 1304 Resp 16 04/08 1304 All vital signs available at the time of this entry have been reviewed. Clinical Impression Clinical Impression Primary Impression: Pyelonephritis Secondary Impressions: FRANCI (acute kidney injury), Retained ureteral stent Disposition Decision Hospitalize Hosp Physician Name Bj Oneal MD [facility] Physician Hospitalist Request Time 171 Request Date [...] Saw Pt Alone I have reviewed the PA/LOADER SEMICONDUCTOR DIES's note and plan of care. I was available for consultation as needed at all times during the patient's visit in the emergency department. I agree with the clinical impression, plan and disposition. at 1750 at 1224 [facility] #: [id number] END OF [id number] 00:35:[id number] [address] PATIENT NAME: DAVID BELLO HQIRRO N ADMIT DATE: 12/14/22 ACCOUNT NO: [id number] ROOM NO: AGE: 42 REPORT TYPE: OPERATIVE REPORT SEX: F ADMITTING PHYSICIAN: ATTENDING PHYSICIAN: Brett Rodriguez MD OPERATION DATE: 12/14/2022 ATTENDING SURGEON: Brett Rodriguez MD HOT STICK MAN: PREOPERATIVE DIAGNOSIS: Right renal calculus. POSTOPERATIVE DIAGNOSIS: [...] manner. At this point, I inserted a 22-Cymraes cystourethroscope into the bladder. I identified the previously placed right ureteral stent. I placed a wire alongside the stent into the renal pelvis. On fluoroscopy imaging, radiopaque stone was seen in the vicinity of the UPJ, approximately 2 cm. I then removed the prior stent out intact. I now advanced a 10-Cymraes dual lumen ureteral catheter over the wire and then advanced an 02/04 7-Cymraes 28 cm PATIENT NAME: DAVID BELLO HQIRRO N access sheath to the proximal ureter. I then navigated a 7-Cymraes flexible ureteroscope through the access sheath and [...] Dictated: 12/15/2022 00:35:48 Date Transcribed: 12/15/2022 01:06:53 PPH/BRY/RITU Receipt ID: [id number] Authenticated and Edited by Brett Rodriguez MD On 12/18/22 11:31:44 AM at 1135 PATIENT NAME: DAVID BELLO 09:35:00 [facility] ([facility]) Brief Op Note REPORT#:[id number] REPORT STATUS: Signed DATE:12/14/22 TIME:934 PATIENT: DAVID BELLO UNIT #: [id number] ROOM/BED: : 79 AGE: 42 SEX: F ATTEND: Brett Rodriguez MD ADM AUTHOR: Brett Rodriguez MD * ALL edits or amendments must be made on the electronic/computer document * Op/Inv Proc Note - Brief Pre-procedure diagnosis: right renal stone Post-procedure diagnosis: same as pre procedure dx Procedures performed: right ureteroscopy with laser lithotripsy and stent removal Primary Surgeon: Jennifer Adult Psychiatrist(s): none Findings: 2cm upj stone, minimal hydronephrosis Complications: none Estimated blood loss in ml's: none Specimens removed/altered: stones Drain(s): None at 0936 RPT #: [id number] END OF REPORT [id number]:[id number] [facility] [id number] [place], [place] [address] PATIENT NAME: DAVID BELLO ADMIT DATE: 12/03/22 ACCOUNT NO: [id number] ROOM NO: .[facility] AGE: 42 REPORT TYPE: 360 - QUERY RESPONSE DOCUMENT SEX: F ADMITTING PHYSICIAN: Grace Castano MD ATTENDING PHYSICIAN: Grace Castano MD Provider Query QUERY TEXT: Clarification Infectious Status POA 360MD Query related questions should be directed to: [facility] coding Query Helpline Based on your clinical judgment, please clarify the condition(s) that represent(s) the clinical indicators listed below and if the condition(s) are present on admission (POA). The following definitions are provided based on industry literature and in collaboration with [facility] Clinical Services Group for your reference only: [...] AM at 1137 PATIENT NAME: DAVID BELLO HQLONNIE N 11:19:00 [facility] ([facility]) Discharge Summary REPORT#:[id number] REPORT STATUS: Signed DATE:12/05/22 TIME:1119 PATIENT: DAVID BELLO HQLONNIE Hernandez UNIT #: [id number] ROOM/BED: [place] [address] : 79 AGE: 42 SEX: F ATTEND: [...] to discharge. ok to dc home DVT prophylaxis-[facility] course: ESBL E. coli UTI s/p right [...] to discharge. ok to dc home DVT prophylaxis-Lovenox Consultants: infectious disease Pt. condition on discharge: [...] Temp 96.8 12/05 830 B/P 143/74 12/04 2323 B/P Mean 97 [...] Respiratory: clear to auscultation Extremities: moves all Neuro/DOWNSTREAM BIOMANUFACTURING TECHNICIAN: alert Skin: dry Lymphatic: no lymphadenopathy Discharge Instructions PCP PCP: PCP: Javi Cuadra MD )( Discharge to: Home/Self Care Discharge Instructions Additional Discharge Routines: PCP Follow-Up, Wrapper Stripper Follow-Up )( Diet: Regular )( Activity: As Tolerated Prescriptions: e-prescribe Discharge management: greater than 30 mins Follow-up Appointments PCP follow up: PCP: Javi Cuadra MD PCP follow up timeframe: In 1-2 weeks Consulting provider 1: Provider 1: Paul Garrett MD Specialty: Infectious Disease at 1123 RPT #: [id number] END OF REPORT [id number] 10:29:00 [facility] Infectious Dis. Progress Note REPORT#:[id number] REPORT STATUS: Signed DATE:12/05/22 TIME:1029 PATIENT: DAVID BELLO HQIRRO David UNIT #: [id number] ROOM/BED: [place] [address] : 79 AGE: 42 SEX: F ATTEND: [...] clubbing, no cyanosis Musculoskeletal: no joint swelling Neuro/DOWNSTREAM BIOMANUFACTURING TECHNICIAN: alert, oriented X 3, CNII-XII intact, normal [...] PCP and urology. at 1130 RPT #: [id number] END OF REPORT [id number] 11:13:00 [facility]) Hospitalist Progress Note REPORT#:[id number] REPORT STATUS: Signed DATE:12/04/22 TIME:1113 PATIENT: DAVID BELLO HQIRRO N UNIT #: [id number] ROOM/BED: [place] [address] : 79 AGE: 42 SEX: F ATTEND: [...] aerating well Genitourinary: urine Extremities: moves all Neuro/DOWNSTREAM BIOMANUFACTURING TECHNICIAN: alert Lymphatics: no lymphadenopathy Results Findings/Data: Laboratory [...] % (Auto) (20.5 - 51.1 %) 46.9 Ulster % (Auto) (1.7 - 9.3 %) 5.3 Eos % (Auto) (0.0 - 6.0 %) 1.7 Baso % (Auto) (0.0 - 2.0 %) 1.5 Neut # (Auto) (1.8 - 7.6 K/mm3) 2.4 Lymph # (Auto) (0.6 - 3.2 K/mm3) 2.6 Ulster # (Auto) (0.3 - 1.1 K/mm3) 0.3 [...] am DVT prophylaxis-Lovenox at 1113 RPT #: [id number] END OF REPORT [id number] 09:25:00 [facility] ([facility]) Infectious Dis. Progress Note REPORT#:[id number] REPORT STATUS: Signed DATE:12/04/22 TIME:924 PATIENT: DAVID BELLO HQMOJGANO David UNIT #: [id number] ROOM/BED: [place] [address] : 79 AGE: 42 SEX: F ATTEND: [...] Pulse Ox 94 12/04 0700 B/P 105/72 12/04 0700 B/P Mean 83 12/04 0700 O2 Delivery Room air 12/04 0700 Pulse 67 12/04 0700 Resp 17 12/04 0700 Temp 36.3 12/03 2357 Vital Signs: Date Time Temp Pulse Resp B/P B/P Pulse O2 O2 Flow FiO2 Mean Ox Delivery Rate 12/04 0700 67 17 105/72 83 94 Room air 12/04 0600 64 15 127/80 95 94 Room [...] 12/03 1800 75 18 158/80 106 98 09/ 1700 66 18 142/65 90 98 / 1427 78 16 110/56 74 98 / 1300 72 20 139/89 105 94 12/03 1200 72 20 99 / 1156 36.7 12/03 1100 64 16 144/85 104 93 09/11 [...] no rebound Extremities: no clubbing, no cyanosis Neuro/DOWNSTREAM BIOMANUFACTURING TECHNICIAN: alert, oriented X 3, CNII-XII intact, normal [...] Monitor kidney function. at 1201 RPT #: [id number] END OF REPORT [id number] 15:16:00 [facility] Hospitalist Progress Note REPORT#:[id number] REPORT STATUS: Signed DATE:12/03/22 TIME:1516 PATIENT: DAVID BELLO HQLONNIE Hernandez UNIT #: [id number] ROOM/BED: [place] [address] : 79 AGE: 42 SEX: F ATTEND: [...] 98.1 12/03 0745 97.7 12/03 0354 97.9 12/023 98.2 12/02 2021 97.4 80 18 146/90 [...] aerating well Genitourinary: urine Extremities: moves all Neuro/DOWNSTREAM BIOMANUFACTURING TECHNICIAN: alert Lymphatics: no lymphadenopathy Results Findings/Data: Laboratory Tests 12/03 12/03 12/03 12/02 5384 9163 0594 195 Chemistry Sodium (134 - 147 mmol/L) 137 [...] 2.2 RATIO) 0.6 L Laboratory Tests 12/03 0524 Hematology WBC (3.5 - 11.0 K/mm3) 6.0 [...] % (Auto) (20.5 - 51.1 %) 24.0 Ulster % (Auto) (1.7 - 9.3 %) 5.3 Eos % (Auto) (0.0 - 6.0 %) 0.2 Baso % (Auto) (0.0 - 2.0 %) 0.5 Neut # (Auto) (1.8 - 7.6 K/mm3) 4.2 Lymph # (Auto) (0.6 - 3.2 K/mm3) 1.4 Ulster # (Auto) (0.3 - 1.1 K/mm3) 0.3 [...] code DVT prophylaxis-Lovenox at 1518 RPT #: [id number] END OF REPORT [id number] 09:41:00 [facility] ([facility]) Infect Disease Consult Note REPORT#:[id number] REPORT STATUS: Signed DATE:12/03/22 TIME:940 PATIENT: DAVID BELLO UNIT #: [id number] ROOM/BED: [place] [address] : 79 AGE: 42 SEX: F ATTEND: [...] Ox 100 12/02 2021 B/P 146/90 12/02 202 B/P Mean 108 12/02 202 Pulse 80 12/02 202 Resp 18 12/02 2021 O2 Delivery Room air 12/02 1158 Vital Signs: Date Time Temp Pulse Resp B/P B/P Pulse O2 O2 Flow FiO2 Mean Ox Delivery Rate 12/03 1156 36.7 12/03 0745 36.5 /11 0354 36.6 / 2353 36.8 12/02 2022 36.3 80 18 146/90 108 100 /10 2000 67 17 146/93 113 96 0910 1932 36.8 09 1922 72 23 145/84 109 96 10 1800 75 28 158/80 114 97 /10 1712 66 21 142/65 93 24 hour [...] clubbing, no cyanosis Musculoskeletal: no joint swelling Neuro/DOWNSTREAM BIOMANUFACTURING TECHNICIAN: alert, oriented X 3, CNII-XII intact, normal [...] for this consult. at 1505 RPT #: [id number] END OF REPORT [id number] 13:41:00 [facility] ([facility]) History Physical - Adult REPORT#:[id number] REPORT STATUS: Signed DATE:12/02/22 TIME:1341 PATIENT: DAVID BELLO HQIRRO N UNIT #: [id number] ROOM/BED: [place] [address] : 79 AGE: 42 SEX: F ATTEND: [...] moves all Musculoskeletal: full range of motion Neuro/DOWNSTREAM BIOMANUFACTURING TECHNICIAN: alert Skin: dry Lymphatic: no lymphadenopathy Results [...] - 7.0 pH UNITS) 6.5 Ur Specific Kimball (1.005 - 1.030 SG) 1.015 Urine Protein [...] EPI<25 Urine HCG, Qual (NEGATIVE) NEGATIVE 12/02 121 Miscellaneous Maternal Serum HCG (0 - 6 [...] or septic shock at 1301 RPT #: [id number] END OF REPORT [id number] 12:14:00 [facility] ([facility]) EMERGENCY PROVIDER REPORT REPORT#:[id number] REPORT STATUS: Signed DATE:12/02/22 TIME:1214 PATIENT: DAVID BELLO HQIRRO David UNIT #: [id number] ROOM/BED: [place] [address] : 79 AGE: 42 SEX: F PCP PHYS: Javi Cuadra MD SERVICE AUTHOR: Alvarez Youngblood PA * ALL edits or amendments must be [...] 12/02 1158 O2 Delivery Room air 12/02 1157 Temp 36.4 12/02 1157 Pulse 78 12/02 1158 Resp 19 12/02 1157 Last Documented: Result Date Time Pulse Ox 99 12/02 115 B/P 136/69 12/02 115 B/P Mean 91 12/02 1157 O2 Delivery Room air 12/02 1157 Temp 36.4 12/02 1157 Pulse 78 12/02 115 Resp 19 12/02 1157 Review of Vital Signs Reviewed Focused PE [...] - 7.0 pH UNITS) 6.5 Ur Specific Kimball (1.005 - 1.030 SG) 1.015 Urine Protein [...] STA 12/02 1214 DC 12/02 PO 12/02 1215 1219 Gastrointestinal Drugs Sig/Mona Start time Last Medication Dose Route Stop Time Status Admin Famotidine 20 MG X1ED STA 12/02 1214 DC 12/02 PO 12/02 1215 1219 Hormones And Synthetic Substit Sig/Mona Start time Last Medication Dose Route Stop Time Status Admin Prednisone 50 MG X1ED STA 12/02 1214 DC 12/02 PO 12/02 1215 1219 Differential Diagnosis Differential Diagnosis Allergic reaction, Anaphylaxis, Angioedema, Angioneurotic edema, Bronchospasm, Cellulitis, Contact dermatitis, Drug reaction, Erythema multiforme, Gastroenteritis, Hemolytic uremic syndrome, Idiopathic thromb purpura, Insect bite, Latex allergy, MRSA, Rhinitis, Seasonal allergy, Status asthmaticus, Patel-Ace syndrome, Urticaria, Viral exanthem, Viral syndrome Patient Discharge Departure Vital Signs/Condition Vital Signs First Documented: Result Date Time Pulse Ox 99 10 1158 B/P 136/69 /10 1158 B/P Mean 91 /10 1158 O2 Delivery Room air 12/02 1158 Temp 36.4 /10 1158 Pulse 78 09/10 1158 Resp 19 10 1158 Last Documented: Result Date Time Pulse Ox 99 /10 1158 B/P 136/69 /10 1158 B/P Mean 91 /10 1158 O2 Delivery Room air 12/02 1158 Temp 36.4 /10 1158 Pulse 78 /10 1158 Resp 19 10 1158 All vital signs available at the [...] the patient along with involvement of the PA/LOADER SEMICONDUCTOR DIES. I agree with the PA/surveillance camera technician findings and plan. I have performed all aspects of MDM as documented including: evaluation of the patient/ patient's condition(s), review and analysis of available data, and determination of risk of patient management decisions. at 1658 at 0934 [facility] #: [id number] END OF [id number] 14:09:00 [facility]) Hospitalist Discharge Summary REPORT#:[id number] REPORT STATUS: Signed DATE:11/24/22 TIME:1409 PATIENT: DAVID BELLO UNIT #: [id number] ROOM/BED: [place] [address] : 79 AGE: 42 SEX: F ATTEND: [...] aerating well Rectal: deferred Extremities: moves all Neuro/DOWNSTREAM BIOMANUFACTURING TECHNICIAN: alert, oriented X 3 Skin: dry Lymphatics: [...] than 30 mins at 1414 RPT #: [id number] END OF REPORT [id number] 14:06:00 [facility] Nephrology Progress Note REPORT#:[id number] REPORT STATUS: Signed DATE:11/24/22 TIME:1406 PATIENT: DAVID BELLO HQIRRO David UNIT #: [id number] ROOM/BED: [place] [address] : 79 AGE: 42 SEX: F ATTEND: [...] and vomiting. Patient fount to have worsening FRANIC and UTI. Patient has hitory of kidney [...] distention Extremities: no edema Musculoskeletal: no tendereness Neuro/DOWNSTREAM BIOMANUFACTURING TECHNICIAN: alert, oriented X 3 Results Radiology data: [...] for the consultation, any question please call [phone]. at 1457 RPT #: [id number] END OF REPORT [id number] 10:40:00 [facility]) Hospitalist Progress Note REPORT#:[id number] REPORT STATUS: Signed DATE:11/24/22 TIME:1040 PATIENT: DAVID BELLO UNIT #: [id number] ROOM/BED: [place] [address] : 79 AGE: 42 SEX: F ATTEND: [...] aerating well Rectal: deferred Extremities: moves all Neuro/DOWNSTREAM BIOMANUFACTURING TECHNICIAN: alert, oriented X 3 Skin: dry Lymphatics: [...] management for arrangement at 1042 RPT #: [id number] END OF REPORT [id number] 23:40:00 [facility] ([facility]) Urology Progress Note REPORT#:[id number] REPORT STATUS: Signed DATE:11/23/22 TIME:2340 PATIENT: DAVID BELLO UNIT #: [id number] ROOM/BED: [place] [address] : 79 AGE: 42 SEX: F ATTEND: [...] arrange as outpt at 2342 RPT #: [id number] END OF REPORT [id number] 15:15:00 [facility] ([facility]) Infectious Dis. Progress Note REPORT#:[id number] REPORT STATUS: Signed DATE:11/23/22 TIME:1515 PATIENT: DAVID BELLO HQIRRO N UNIT #: [id number] ROOM/BED: [place] [address] : 79 AGE: 42 SEX: F ATTEND: [...] clubbing, no cyanosis Musculoskeletal: no joint swelling Neuro/DOWNSTREAM BIOMANUFACTURING TECHNICIAN: alert, oriented X 3, CNII-XII intact, normal [...] for this consult. at 1746 RPT #: [id number] END OF REPORT [id number] 15:01:00 [facility] ([facility]) Nephrology Progress Note REPORT#:[id number] REPORT STATUS: Signed DATE:11/23/22 TIME:1501 PATIENT: DAVID BELLO HQLONNIE Hernandez UNIT #: [id number] ROOM/BED: [place] [address] : 79 AGE: 42 SEX: F ATTEND: [...] distention Extremities: no edema Musculoskeletal: no tendereness Neuro/DOWNSTREAM BIOMANUFACTURING TECHNICIAN: alert, oriented X 3 Results Results: no [...] for the consultation, any question please call [phone]. Plan discussed with: primary care physician, nurse at 2307 RPT #: [id number] END OF REPORT [id number] 11:28:00 [facility] ([facility]) Hospitalist Progress Note REPORT#:[id number] REPORT STATUS: Signed DATE:11/23/22 TIME:1128 PATIENT: DAVID BELLO HQIRRO N UNIT #: [id number] ROOM/BED: [place] [address] : 79 AGE: 42 SEX: F ATTEND: [...] Flow FiO2 Mean Ox Delivery Rate 11/23 0542 97.9 60 14 148/96 113.5 97 Room [...] aerating well Rectal: deferred Extremities: moves all Neuro/DOWNSTREAM BIOMANUFACTURING TECHNICIAN: alert, oriented X 3 Skin: dry Lymphatics: [...] with home health at 1132 RPT #: [id number] END OF REPORT [id number] 22:39:00 [facility] ([facility]) Urology Progress Note REPORT#:[id number] REPORT STATUS: Signed DATE:11/22/22 TIME:2238 PATIENT: DAVID BELLO HQIRRO David UNIT #: [id number] ROOM/BED: [place] [address] : 79 AGE: 42 SEX: F ATTEND: [...] arrange as outpt at 2241 RPT #: [id number] END OF REPORT [id number] 20:29:00 [facility] Nephrology Progress Note REPORT#:[id number] REPORT STATUS: Signed DATE:11/22/22 TIME:2028 PATIENT: DAVID BELLO HQIRRO N UNIT #: [id number] ROOM/BED: [place] [address] : 79 AGE: 42 SEX: F ATTEND: [...] distention Extremities: no edema Musculoskeletal: no tendereness Neuro/DOWNSTREAM BIOMANUFACTURING TECHNICIAN: alert, oriented X 3 Diagnosis, Assessment Plan [...] for the consultation, any question please call [phone]. at 2030 RPT #: [id number] END OF REPORT [id number] 10:42:00 [facility] ([facility]) Infect Disease Consult Note REPORT#:[id number] REPORT STATUS: Signed DATE:11/22/22 TIME:1041 PATIENT: DAVID BELLO HQIRRO N UNIT #: [id number] ROOM/BED: [place] [address] : 79 AGE: 42 SEX: F ATTEND: [...] Documented: Result Date Time Pulse Ox 93 11/23 715 B/P 118/69 11/23 715 B/P Mean 85.2 11/23 715 O2 Delivery Room air 11/23 715 Temp 36.5 11/23 715 Pulse 64 11/22 0716 Resp 14 11/22 0716 O2 Flow Rate 2 11/22 1999 Vital Signs: Date Time Temp Pulse Resp B/P B/P Pulse O2 O2 Flow FiO2 Mean Ox Delivery Rate 11/22 0716 36.5 64 14 118/69 85.2 93 Room air 11/21 2306 36.5 79 18 108/73 84.4 98 11/21 2015 37.1 104 17 112/69 83.1 89 11/21 2000 2 11/21 1844 36.6 96 18 132/70 [...] clubbing, no cyanosis Musculoskeletal: no joint swelling Neuro/DOWNSTREAM BIOMANUFACTURING TECHNICIAN: alert, oriented X 3, CNII-XII intact, normal [...] End date: 12/04/22. at 1229 RPT #: [id number] END OF REPORT [id number] 09:47:00 [facility] [facility] ([facility]) Hospitalist Progress Note REPORT#:[id number] REPORT STATUS: Signed DATE:11/22/22 TIME:946 PATIENT: DAVID BELLO HQIRRO N UNIT #: [id number] ROOM/BED: [place] [address] : 79 AGE: 42 SEX: F ATTEND: [...] RADIOLOGY - XR FLUOROSCOPY 0-60 MIN 11/21 4984 Report Impression - Status: SIGNED Entered: 11/21/2022 9662 IMPRESSION: Fluoroscopic guidance as above. Impression By: [...] prophylaxis Advanced directive full code at 1117 [facility] #: [id number] END OF REPORT [id number] 23:10:[id number] [facility] [address] [place] [address] PATIENT NAME: DAVID BELLO HQIRRO David ADMIT DATE: 11/20/22 ACCOUNT NO: [id number] ROOM NO: L.PO6 AGE: 42 REPORT TYPE: OPERATIVE REPORT SEX: F ADMITTING PHYSICIAN: Glen Nava MD ATTENDING PHYSICIAN: Glen Nava MD OPERATION DATE: 11/21/2022 ATTENDING SURGEON: Brett Rodriguez MD HOT STICK MAN:None PREOPERATIVE DIAGNOSIS: Infected obstructed right mid renal [...] manner. At this point, I inserted a 22-Cymraes cystourethroscope into the bladder. I performed examination of bladder, there was moderate cystitis. No masses or tumors. I identified the right ureteral orifice in normal orthotopic position. I cannulated with a 6-Cymraes open-ended PATIENT NAME: MIRELLA BELLOGUS Hernandez ureteral catheter and performed a retrograde pyelogram. This showed moderate hydroureteronephrosis, there was a radiopaque stone seen on professor in family studies imaging. I then advanced a wire into the renal pelvis and advanced a ] ureteral stent over the wire, confirmed to be in good position proximally and distally. This marked completion of procedure, bladder was drained. The patient tolerated the procedure well. There were no complications. Dictated By: Brett Rodriguez MD Date Dictated: 11/21/2022 23:10:37 Date Transcribed: 11/21/2022 23:41:41 [facility]/SANDRA/RITU Receipt ID: [id number] Authenticated and Edited by Brett Rodriguez MD On 11/22/22 11:31:41 PM at 1133 PATIENT NAME: MIRELLA BELLOGUS Hernandez 18:05:00 [facility] ([facility]) Brief Op Note REPORT#:[id number] REPORT STATUS: Signed DATE:11/21/22 TIME:1804 PATIENT: EMIR BELLOGAVIN Hernandez UNIT #: [id number] ROOM/BED: [facility] : 79 AGE: 42 SEX: F ATTEND: Glen Nava MD ADM AUTHOR: Brett Rodriguez MD * ALL edits or amendments must be made on the electronic/computer document * Op/Inv Proc Note - Brief Pre-procedure diagnosis: infected, obstructing right renal calculi Post-procedure diagnosis: same as pre procedure dx Procedures performed: cystoscopy, right retro/stent placement Primary Surgeon: Jennifer Adult Psychiatrist(s): none Findings: moderate right hydronephrosis 1.5 renal pelvic stone pyonephrosis Complications: none Estimated blood loss in ml's: none Specimens removed/altered: none Drain(s): 6x26 bb stent at 1806 RPT #: [id number] END OF REPORT [id number] 17:08:[id number] [place] [address] PATIENT NAME: DAVID BELLO HQIRRRavi Hernandez ADMIT DATE: 11/20/22 ACCOUNT NO: [id number] ROOM NO: [facility] AGE: 42 REPORT TYPE: CONSULTATION SEX: F [...] rebound or guarding. PATIENT NAME: DAVID BELLO BACK: No CVA tenderness. EXTREMITIES: No clubbing, cyanosis or edema. LABORATORY DATA: White count of 15.6, hemoglobin count of 9.6. Creatinine of 2 with a BUN of 17. Her urinalysis shows 2+ blood, negative leukocyte esterase, occasional bacteria. PERTINENT IMAGING: Renal ultrasound shows [id number] right hydronephrosis, 1.6 cm stone noted in [...] Dictated: 11/21/2022 17:08:40 Date Transcribed: 11/21/2022 17:53:55 [facility]/JAE/[facility] Receipt ID: [id number] Authenticated by Brett Rodriguez MD On 11/22/2022 11:31:56 PM at 1131 PATIENT NAME: DAVID BELLO 15:07:00 [facility] Nephrology Progress Note REPORT#:[id number] REPORT STATUS: Signed DATE:11/21/22 TIME:1507 PATIENT: DAVID BELLO UNIT #: [id number] ROOM/BED: [address] : 79 AGE: 42 SEX: F [...] hour I O ending at 0700: 11/21 1900 Intake Total 500 Output Total Balance [...] distention Extremities: no edema Musculoskeletal: no tendereness Neuro/DOWNSTREAM BIOMANUFACTURING TECHNICIAN: alert, oriented X 3 Results Findings/Data: Laboratory Tests 08/30 08/30 08/30 08/30 08/30 1129 0820 0820 0711 0442 Chemistry Sodium [...] (1.2 - 2.2 RATIO) 0.4 L 11/20 1834 1512 Chemistry POC Glucose (70 - [...] - 7.0 pH UNITS) 6.0 Ur Specific Kimball (1.005 - 1.030 SG) <=1.005 Urine Protein [...] the right renal pelvis. Impression By: [email or web address] Luisa Nath D.O. Diagnosis, Assessment Plan Free Text [...] for the consultation, any question please call [phone]. at 1508 RPT #: [id number] END OF REPORT [id number] 10:54:00 [facility] ([facility]) Hospitalist Progress Note REPORT#:[id number] REPORT STATUS: Signed DATE:11/21/22 TIME:1054 PATIENT: DAVID BELLO HQLONNIE Hernandez UNIT #: [id number] ROOM/BED: [address] : 79 AGE: 42 SEX: F [...] (1.2 - 2.2 RATIO) 0.4 L 11/20 1834 1512 Chemistry POC Glucose (70 - [...] - 7.0 pH UNITS) 6.0 Ur Specific Kimball (1.005 - 1.030 SG) <=1.005 Urine Protein [...] Impressions: ULTRASOUND - US RETROPERITONEAL COM 11/20 1622 Report Impression - Status: SIGNED Entered: 11/20/2022 1644 IMPRESSION: Mild to moderate right-sided hydronephrosis. 1.6 cm kidney stone noted in the right renal pelvis. Impression By: [email or web address] Luisa Nath D.O. Free Text Obj Notes Free [...] directive full code at 1330 RPT #: [id number] END OF REPORT [id number] 04:55:00 [facility] ([facility]) Critical Care Event Note REPORT#:[id number] REPORT STATUS: Signed DATE:11/21/22 TIME:0455 PATIENT: DAVID BELLO UNIT #: [id number] ROOM/BED: L.PO6-1 : 79 AGE: 42 SEX: F ATTEND: [...] required at 0947 at 1146 RPT #: [id number] END OF REPORT [id number] 20:05:00 [facility] ([facility]) Nephrology Consultation Note REPORT#:[id number] REPORT STATUS: Signed DATE:11/20/22 TIME:2004 PATIENT: DAVID BELLO HQIRRO N UNIT #: [id number] ROOM/BED: L.PO2-C : 79 AGE: 42 SEX: F ATTEND: [...] Status Admin Piperacillin Sod/ 3.375 GM Q8HR 11/200 UNV Tazobactam Sod IV 12/04 2158 (ZOSYN) Sodium Chloride 100 ML (SODIUM CHLORIDE [...] Time Status Admin Sodium Chloride 1,000 ML .[id number] 11/20 1545 AC 11/20 (0.9% Sodium IV [...] Sodium Chloride (0.9% Sodium Chloride) 1,000 ML .[id number] IV Ampicillin Sodium/Sulbactam Sodium (UNASYN 3 GM) [...] distention Extremities: no edema Musculoskeletal: no tendereness Neuro/DOWNSTREAM BIOMANUFACTURING TECHNICIAN: alert, oriented X 3 Results Findings/Data: Laboratory [...] TRACE Lindsay Cells (NONE ON SCAN) TRACE Laboratory Tests 11/20 1324 Urines Urine Color (YEL/STRAW discript) YELLOW Urine Appearance (CLEAR discript) SL CLOUDY Urine pH (5.0 - 7.0 pH UNITS) 5.5 Ur Specific Kimball (1.005 - 1.030 SG) 1.015 Urine Protein [...] the right renal pelvis. Impression By: [email or web address] Luisa Nath D.O. Diagnosis, Assessment Plan Free Text [...] for the consultation, any question please call [phone]. at 2012 RPT #: [id number] END OF REPORT [id number] 17:31:00 [facility] ([facility]) Hospitalist History Physical REPORT#:[id number] REPORT STATUS: Signed DATE:11/20/22 TIME:1731 PATIENT: DAVID BELLO UNIT #: [id number] ROOM/BED: [place] [address] : 79 AGE: 42 SEX: F ATTEND: [...] Sodium Chloride (0.9% Sodium Chloride) 1,000 ML .[id number] IV Ampicillin Sodium/Sulbactam Sodium (UNASYN 3 GM) [...] (NONE) TRACE Ovalocytes (NONE ON SCAN) TRACE Turner Cells (NONE ON SCAN) TRACE Urines Urine Color (YEL/STRAW discript) YELLOW Urine Appearance (CLEAR discript) SL CLOUDY Urine pH (5.0 - 7.0 pH UNITS) 5.5 Ur Specific Kimball (1.005 - 1.030 SG) 1.015 Urine Protein [...] the right renal pelvis. Impression By: [email or web address] Luisa Nath D.O. Free Text PE Notes Free [...] CKD stage II at 1652 RPT #: [id number] END OF REPORT [id number] 13:17:00 [facility] ([facility]) EMERGENCY PROVIDER REPORT REPORT#:[id number] REPORT STATUS: Signed DATE:11/20/22 TIME:1317 PATIENT: DAVID BELLO UNIT #: [id number] ROOM/BED: [facility]- : 79 AGE: 42 SEX: F PCP [...] - 7.0 pH UNITS) 5.5 Ur Specific Kimball (1.005 - 1.030 SG) 1.015 Urine Protein [...] Microbiology: Date/Time Procedure - Status Source Growth 11/21 1323 Blood Culture - RECD BLOOD 11/20 1324 [...] Consultation Consultation Referral/Consult Name Brett Rodriguez MD Wrapper Stripper Called Urology Requested Call Time 1533 Requested [...] admission reviewed and given h/o sepsis in 2020, will order cultures and lactic acid, but [...] Hospitalize Hosp Physician Name Glen Nava MD [facility] Physician Hospitalist Request Time 1545 Request Date [...] Saw Pt Alone I have reviewed the PA/LOADER SEMICONDUCTOR DIES's note and plan of care. I was available for consultation as needed at all times during the patient's visit in the emergency department. I agree with the clinical impression, plan and disposition. at 1823 at 0707 [facility] #: [id number] END OF [id number] 07:27:00 [facility]) EMERGENCY PROVIDER REPORT REPORT#:[id number] REPORT STATUS: Signed DATE:11/07/22 TIME:726 PATIENT: DAVID BELLO HQMOJGANO David UNIT #: [id number] ROOM/BED: : 79 AGE: 42 SEX: F [...] with increasing nausea and pain overnight pcp- Venecia uro - [facility] Prev hosp - [facility] Review of Systems ROS Statements All systems [...] DC: 11/01/22 2141 Change of medication Reported Medications SEMAGLUTIDE (OZEMPIC [...] (Auto) (20.5 - 51.1 %) 11.5 L Ulster % (Auto) (1.7 - 9.3 %) 5.3 Eos % (Auto) (0.0 - 6.0 %) 0.4 Baso % (Auto) (0.0 - 2.0 %) 0.4 Neut # (Auto) (1.8 - 7.6 K/mm3) 7.0 Lymph # (Auto) (0.6 - 3.2 K/mm3) 1.0 Ulster # (Auto) (0.3 - 1.1 K/mm3) 0.5 [...] - 7.0 pH UNITS) 6.5 Ur Specific Kimball (1.005 - 1.030 SG) 1.010 Urine Protein [...] B/P 128/90 11/08 627 B/P Mean 102 11/07 0628 O2 Delivery Room air 11/08 627 Temp 37.1 11/08 627 Pulse 81 11/08 627 Resp 11/07 Last Documented: Result Date Time Pulse Ox 100 11/08 627 B/P 128/90 11/08 627 B/P Mean 102 11/07 0628 O2 Delivery Room air 11/08 627 Temp 37.1 11/08 627 Pulse 81 11/08 627 Resp 16 11/08 627 All vital signs available at the time [...] prescribed Bactrim. Please go to the [facility] pharmacy on [address] to warehouse picker the Augmentin, but call make sure they have this by the time that you are ready to pick it up. Please take the full course as directed and use the pain medicine as needed, but add a stool softener if you are taking this and make sure you stay well-hydrated. upholstery repairer a probiotic and take this around noon daily for the next couple weeks to replace the good bacteria. Call and follow-up with Dr. Rodriguez, by calling and setting up the follow-up appointment today, for approximately a week out at 0926 [facility] #: [id number] END OF [id number] 13:52:00 [facility] ([facility]) Nephrology Progress Note REPORT#:[id number] REPORT STATUS: Signed DATE:11/04/22 TIME:1352 PATIENT: DAVID BELLO HQIRRO N UNIT #: [id number] ROOM/BED: [place] [address] : 79 AGE: 42 SEX: F ATTEND: [...] Extremities: non-tender Musculoskeletal: full range of motion Neuro/DOWNSTREAM BIOMANUFACTURING TECHNICIAN: normal speech Results Findings/Data: Laboratory Tests 11/04 [...] for the consultation, any question please call [phone] at 1354 RPT #: [id number] END OF REPORT [id number] 13:47:00 [facility] ([facility]) Hospitalist Discharge Summary REPORT#:[id number] REPORT STATUS: Signed DATE:11/04/22 TIME:1347 PATIENT: DAVID BELLO HQIRRO N UNIT #: [id number] ROOM/BED: [place] [address] : 79 AGE: 42 SEX: F ATTEND: [...] edema, no cyanosis Musculoskeletal: normal muscle mass Neuro/DOWNSTREAM BIOMANUFACTURING TECHNICIAN: alert, oriented X 3, normal speech, no motor deficits, no sensory deficits Skin: dry, intact, normal color, normal temperature, no rash Psychiatry: normal affect Discharge Instructions PCP PCP follow-up: PCP: Javi Cuadra MD Additional Discharge Routines: Wrapper Stripper Follow-Up Time spent: Time spent on patient care (minutes): 35 Quality: Discharge Advanced Care Plan 65 or Older Discussed with: patient Current Medications Current medication review: I attest that the foregoing medication list in the medical record is true, accurate, and complete to the best of my knowledge. at 1354 RPT #: [id number] END OF REPORT [id number] 18:33:00 [facility] ([facility]) Hospitalist Progress Note REPORT#:[id number] REPORT STATUS: Signed DATE:11/03/22 TIME:1832 PATIENT: DAVID BELLO HQIRRO N UNIT #: [id number] ROOM/BED: [address] : 79 AGE: 42 SEX: F [...] edema, no cyanosis Musculoskeletal: normal muscle mass Neuro/DOWNSTREAM BIOMANUFACTURING TECHNICIAN: alert, oriented X 3, normal speech, no [...] Discussed with: patient at 1838 RPT #: [id number] END OF REPORT [id number] 16:35:00 [facility]) Urology Progress Note REPORT#:[id number] REPORT STATUS: Signed DATE:11/03/22 TIME:1635 PATIENT: DAVID BELLO HQLONNIE Hernandez UNIT #: [id number] ROOM/BED: [address] : 79 AGE: 42 SEX: F [...] clearance of infection at 1636 RPT #: [id number] END OF REPORT [id number] 14:42:00 [facility] ([facility]) Nephrology Progress Note REPORT#:[id number] REPORT STATUS: Signed DATE:11/03/22 TIME:1442 PATIENT: DAVID BELLO UNIT #: [id number] ROOM/BED: [address] : 79 AGE: 42 SEX: F [...] Extremities: non-tender Musculoskeletal: full range of motion Neuro/DOWNSTREAM BIOMANUFACTURING TECHNICIAN: normal speech Results Findings/Data: Laboratory Tests 11/03 [...] kidney, on CT scan. 6. Hypokalemia. Recommendations: : Taper off IV fluids once patient tolerate p.o. Avoid NSAID. 11/02: LR 100 ml/hour. Taper off IV fluids once patient tolerate p.o. Avoid NSAID. 11/01: Continue LR 75 ml/hour. AVoid NSAID. Urine studies. Drug dose adjustment GFR. Thank you for the consultation, any question please call [phone] at 1443 RPT #: [id number] END OF REPORT [id number] 22:45:00 [facility] ([facility]) Hospitalist Progress Note REPORT#:[id number] REPORT STATUS: Signed DATE:11/02/22 TIME:2244 PATIENT: DAVID BELLO HQIRRO David UNIT #: [id number] ROOM/BED: [address] : 79 AGE: 42 SEX: F [...] edema, no cyanosis Musculoskeletal: normal muscle mass Neuro/DOWNSTREAM BIOMANUFACTURING TECHNICIAN: alert, oriented X 3, normal speech, no [...] Discussed with: patient at 2248 RPT #: [id number] END OF REPORT [id number] 15:39:[id number] [facility] [id number] [place] [address] PATIENT NAME: DAVID BELLO HQIRRO David ADMIT DATE: 11/01/22 ACCOUNT NO: [id number] ROOM NO: [facility] AGE: 42 REPORT TYPE: CONSULTATION SEX: F [...] undergoing urologic procedure several years ago in [place] and does not have an established urologist [...] Dictated: 11/02/2022 15:39:24 Date Transcribed: 11/02/2022 16:22:00 [facility]/SUB Receipt ID: [id number] Authenticated by Brett Rodriguez MD On 11/05/2022 11:29:13 PM at 1129 PATIENT NAME: DAVID BELLO 12:26:00 [facility] Nephrology Progress Note REPORT#:[id number] REPORT STATUS: Signed DATE:11/02/22 TIME:1226 PATIENT: DAVID BELLO UNIT #: [id number] ROOM/BED: [place] [address] : 79 AGE: 42 SEX: F ATTEND: [...] air 11/02 0727 97 Room air 11/02 07 36.6 53 15 148/83 104.3 98 Room air 11/02 0407 36.5 52 18 153/81 105.3 97 11/01 2341 37.0 52 18 150/79 102.3 98 11/01 2058 98 Room air 11/01 2000 36.7 58 [...] Sodium Chloride (0.9% Sodium Chloride) 1,000 ML .[id number] IV (DC) Ceftriaxone Sodium (ROCEPHIN) 1,000 MG [...] Extremities: non-tender Musculoskeletal: full range of motion Neuro/DOWNSTREAM BIOMANUFACTURING TECHNICIAN: normal speech Results Findings/Data: Laboratory Tests 11/02 [...] - 7.0 pH UNITS) 5.5 Ur Specific Kimball (1.005 - 1.030 SG) 1.015 Urine Protein [...] Report Impression - Status: SIGNED Entered: 11/01/2022 8240 IMPRESSION: ABDOMEN AND PELVIS: Large 1.8 cm [...] for the consultation, any question please call [phone] at 2500 [facility] #: [id number] END OF REPORT [id number] 21:39:00 [facility] ([facility]) Hospitalist History Physical REPORT#:[id number] REPORT STATUS: Signed DATE:11/01/22 TIME:2138 PATIENT: DAVID BELLO HQIRRO N UNIT #: [id number] ROOM[address]BED: [address] : 79 AGE: 42 SEX: F ATTEND: Bj Oneal MD ADM AUTHOR: Bj Oneal MD * ALL edits or amendments must be made on the electronic/computer document * History of Present Illness HPI Chief complaint: Flank pain PCP: PCP: Javi Cuadra MD HPI: Mrs. Bello is a 42-year-old -Pakistani woman who presents with flank pain and [...] edema, no cyanosis Musculoskeletal: normal muscle mass Neuro/DOWNSTREAM BIOMANUFACTURING TECHNICIAN: alert, oriented X 3, normal speech, no [...] but will verify Check A1c [facility] Prophylaxis VTE prophylaxis initiated: yes Current Medications Current medication review: I attest that the foregoing medication list in the medical record is true, accurate, and complete to the best of my knowledge. Advanced Care Plan 65 or Older Discussed with: patient at 2152 RPT #: [id number] END OF REPORT [id number] 20:46:00 [facility] ([facility]) Nephrology Consultation Note REPORT#:[id number] REPORT STATUS: Signed DATE:11/01/22 TIME:2045 PATIENT: DAVID BELLO HQIRRO N UNIT #: [id number] ROOM/BED: [address] : 79 AGE: 42 SEX: F [...] Time Status Admin Sodium Chloride 1,000 ML .[id number] 11/01 1730 AC (0.9% Sodium IV 11/02 1616 Chloride) Sodium Chloride 50 ML .STK-MED ONE 11/01 1515 DC 11/01 (0.9% Sodium IV 11/01 1516 1515 Chloride) Sodium Chloride 1,000 ML X1ED STA 11/01 0915 DC 11/01 (0.9% Sodium IV 11/01 1015 0937 Chloride) Gastrointestinal Drugs Sig/Mona Start time Last Medication Dose Route Stop Time Status Admin Ondansetron HCl 4 MG X1ED STA 11/01 914 DC 11/01 (ZOFRAN) IV 11/01 0816 0937 Hormones And Synthetic Substit Sig/Mona Start [...] for the consultation, any question please call [phone] at 2103 RPT #: [id number] END OF REPORT [id number] 10:02:00 [facility] ([facility]) EMERGENCY PROVIDER REPORT REPORT#:[id number] REPORT STATUS: Signed DATE:11/01/22 TIME:1002 PATIENT: DAVID BELLO HQIRRO N UNIT #: [id number] ROOM[address]BED: [address] : 79 AGE: 42 SEX: F [...] or discomfort, no palpitations 6. Respiratory: no cnqtqtbak-wn-xcdzsi, no cough 7. GI: No nausea, no [...] PO Q12HR #20 CAPS Prov: 08/31/21 DC: 11/01/222140 Change of medication KETOROLAC (TORADOL) 10 MG PO Q6H PRN PRN PAIN KETOROLAC (TORADOL) 10 MG PO Q6H PRN PRN PAIN #20 TABS Prov: 08/31/21 DC: 11/01/222140 Change of medication Reported Medications SEMAGLUTIDE (OZEMPIC [...] Result Date Time Pulse Ox 100 11/01 0810 B/P 148/82 11/01 0810 B/P Mean 104 11/01 0810 O2 Delivery Room air 11/01 909 Temp 36.7 11/01 0810 Pulse 66 11/01 0910 Resp 19 11/01 0910 Last Documented: Result Date Time Pulse Ox 97 11/01 1430 B/P 183/82 11/01 1430 B/P Mean 115 11/01 1430 O2 Delivery Room air 11/01 1430 Pulse 50 11/01 1430 Resp 17 11/01 1430 Temp 36.7 11/01 0910 Review of Vital [...] - 7.0 pH UNITS) 5.5 Ur Specific Kimball (1.005 - 1.030 SG) 1.015 Urine Protein [...] 426 MRSA Screen - COMP NASAL Recent Impressions: RADIOLOGY - XR CHEST 1 V 11/01 921 Report Impression - Status: SIGNED Entered: 11/01/2022 0952 IMPRESSION: No acute radiographic abnormality Impression By: [email or web address] Luisa Lee M.D. CAT SCAN - CT ABD [...] head CT. Impression By: Curtis Mcneill M.D. Lab Imaging Statement Laboratory radiographic studies reviewed and considered in the medical decision-making. ECG #1 Interpretation Text/Dict Note EKG INTERPRETATION Rhythm: Normal sinus rhythm Ventricular Rate: 67 BPM GA: 144 ms QRS: 80 ms QTC: 439 ms [place]: Normal ST elevation: None ST depression: None [...] 0910 Pulse 66 08/10 0910 Resp 19 08/10 0910 Last Documented: Result Date Time Pulse [...] kidney injury), Hypertension, Nephrolithiasis Time of Impression 1721 Disposition Decision Hospitalize Hosp Physician Name Bj Oneal MD Hosp Physician Hospitalist Request Time 172 Request Date [...] taking over this patient's care. at 0810 [facility] #: [id number] END OF [id number] 11:30:393033-2418 [facility] [address] [place] [address] PATIENT NAME: KAMRAN BELLO ADMIT DATE: 09/28/21 ACCOUNT NO: [id number] ROOM NO: [facility] AGE: 41 REPORT TYPE: OPERATIVE REPORT SEX: F ADMITTING PHYSICIAN:Ron Tipton MD ATTENDING PHYSICIAN:Ron Tipton MD OPERATION DATE: 09/29/2021 PROCEDURES: Ultrasound-guided pericardiocentesis. PREPROCEDURE DIAGNOSIS: Pericardial effusion. POSTPROCEDURE DIAGNOSIS: Pericardial effusion. LIP CUTTER: Jasper Hurst MD CAMPBELL: Mckenna Trevino MD HOT STICK MAN: N/A ANESTHESIA: Moderate sedation. COMPLICATIONS: None. PROCEDURE IN DETAIL: The patient was brought to the [facility] cardiac catheterization laboratory in the fasting state. [...] complication. Dictated By: Mckenna Trevino MD WT: OP:GEOVANNA/YUSUF. PATIENT NAME: KAMRAN BELLO Conf#: [id number]/DID#: [id number] Authenticated and Edited by Mckenna Trevino MD On 10/02/21 1:05:08 PM at 0107 PATIENT NAME: KAMRAN BELLO 16:27:00 [facility] ([facility]) Non-Operative Procedure Note REPORT #: [id number] REPORT STATUS: Signed DATE: 09/29/21 TIME: 1627 PATIENT: KAMRAN BELLO UNIT #: [id number] ROOM #: P.0590 BED: A : 79 AGE: 41 SEX: F ATTEND: Ron Tipton MD ADM AUTHOR: Mckenna Trevino MD ATTENTION *EDITS and/or ADDENDA must be made in Patient Keeper for this note. * * Edits and ammendments created in [email or web address] are not visible * * in Patient Keeper or the legal medical record ([facility]). * -- PROCEDURE -- PRE-PROCEDURE DIAGNOSIS: Per effusion POST-PROCEDURE DIAGNOSIS: same NAME OF PROCEDURE: pericardiocentesis PERFORMED BY: MCKENNA TREVINO MD ANESTHESIA/ANALGESIA: moder -CONSCIOUS SEDATION:- CONSCIOUS SEDATION (PROVIDED BY [place]) - INDEPENDENT TRAINED OBSERVER PRESENT: I supervised [...] * * Edits and ammendments created in [employer] are not visible * * in Patient Keeper or the legal medical record ([facility]). * RPT #: [id number] END OF [id number] 16:25:00 [facility] ([facility]) Cardiology H P REPORT #: [id number] REPORT STATUS: Signed DATE: 09/29/21 TIME: 1625 PATIENT: KAMRAN BELLO UNIT #: [id number] ROOM #: P.0590 BED: A : 79 AGE: 41 SEX: F ATTEND: Ron Tipton MD ADM AUTHOR: Mckenna Trevino MD ATTENTION *EDITS and/or ADDENDA must be made in Patient Keeper for this note. * * Edits and ammendments created in [email or web address] are not visible * * in Patient Keeper or the legal medical record ([facility]). * -- HISTORY -- ADMISSION DATE: 2021-09-28 PRIMARY CARE PROVIDER: Provider, Undefined -- ALLERGIES/HOME MEDS -- ALLERGIES: sumatriptan (Intermediate [...] * * Edits and ammendments created in [email or web address] are not visible * * in Patient Keeper or the legal medical record ([facility]). * [facility] #: [id number] END OF [id number] 15:42:00 [facility] ([facility]) Pre-Sedation Assessment REPORT #: [id number] REPORT STATUS: Signed DATE: 09/29/21 TIME: 1542 PATIENT: KAMRAN BELLO UNIT #: [id number] ROOM #: P.0590 BED: A : 79 AGE: 41 SEX: F ATTEND: Ron Tipton MD ADM AUTHOR: Mckenna Trevino MD ATTENTION *EDITS and/or ADDENDA must be made in Patient Keeper for this note. * * Edits and ammendments created in [email or web address] are not visible * * in Patient Keeper or the legal medical record ([facility]). * -- HISTORY -- AIRWAY: adequate MALLAMPATI CLASS: I ASA STATUS: 3 SEDATION PLAN: Moderate RE-EVAL IMMED PRIOR TO INDUCTION: Yes Signed in PatientKeeper by MCKENNA TREVINO MD on 09/29/21 at 16:26 at 1626 ATTENTION *EDITS and/or ADDENDA must be made in Patient Keeper for this note. * * Edits and ammendments created in [email or web address] are not visible * * in Patient Keeper or the legal medical record ([facility]). * [facility] #: [id number] END OF [id number] 09:11:00 [facility] ([facility]) Internal Med. H P REPORT #: [id number] REPORT STATUS: Signed DATE: 09/29/21 TIME: 910 PATIENT: KAMRAN BELLO UNIT #: [id number] ROOM #: [id number] BED: A : 79 AGE: 41 SEX: F ATTEND: Ron Tipton MD ADM AUTHOR: Mike Rosa APRN ATTENTION *EDITS and/or ADDENDA must be made in Patient Keeper for this note. * * Edits and ammendments created in [email or web address] are not visible * * in Patient [...] CT abdomen pelvis. Patient followed up her elementary school music teacher, Dr. Hurst. Ultrasound showed moderate to large pericardial effusion, no tamponade. Patient reports shortness of breath over the past couple of days. She was started on ibuprofen 600 mg 3 times daily, colchicine 0.6 mg twice daily, pantoprazole 40 mg daily. Given her shortness of breath, the patient was referred to [facility] for further management. PAST MEDICAL HISTORY: asthma, [...] Hurst Monitor telemetry NPO for pericardiocentesis in [facility] buprofen 600 mg tid, colchicine 0.6 mg [...] * * Edits and ammendments created in [facility] are not visible * * in Patient Keeper or the legal medical record ([facility]). * [facility] #: [id number] END OF [id number] 23:16:00 [facility] ([facility]) EMERGENCY PROVIDER REPORT REPORT#:[id number] REPORT STATUS: Signed DATE:09/28/21 TIME: 2315 PATIENT: KAMRAN BELLO UNIT #: [id number] ROOM: [facility] BED: 1 AGE: 41 SEX: F PCP PHYS: Undefined Provider SERVICE AUTHOR: Avila Nath MD * ALL edits or amendments must be made on the electronic/computer document * HPI-General Illness General Initial Greet Date/Time 09/28/21 5091 Presentation Chief Complaint pericardial effusion Hx Obtained From Patient Exacerbated by Nothing Relieved by Nothing Context Similar Sx Previous No Free Text HPI Notes Free Text HPI Notes 41-year-old female history of Graves' disease, asthma, DM2 sent here by her elementary school music teacher for evaluation of pericardial effusion. Patient states initially diagnosed with pericardial effusion last month when incidentally seen on CT abdomen pelvis and informed to follow-up with cardiology. Patient states she followed with elementary school music teacher today. Endorses shortness of breath over past 2 days. Denies any fever, emesis, chest pain, abdominal pain, weakness. Discussed with patient's elementary school music teacher, Dr. Hurst. Ultrasound showed moderate to large [...] 153/97 09/28 2254 B/P Mean 115 09/28 2253 O2 Delivery Room air 09/28 2253 Temp 36.7 09/28 2253 Pulse 64 09/28 2254 Resp 18 09/28 2253 Last Documented: Result Date Time Pulse Ox 100 09/28 2302 B/P 153/97 09/28 2254 B/P Mean 115 09/28 2253 O2 Delivery Room air 09/28 2253 Temp 36.7 09/28 2253 Pulse 64 09/28 2253 Resp 18 09/28 2253 Review of Vital [...] (Auto) (20.5 - 51.1 %) 52.9 H Ulster % (Auto) (1.7 - 9.3 %) 8.3 Eos % (Auto) (0.0 - 7.0 %) 2.5 Baso % (Auto) (0 - 2.5 %) 1.1 Neut # (Auto) (1.80 - 7.70 x10 3/uL) 1.27 L Lymph # (Auto) (1.00 - 4.80 x10 3/uL) 1.91 Ulster # (Auto) (0.00 - 0.80 x10 3/uL) 0.30 Eos # (Auto) (0.00 - 0.45 x10 3/uL) 0.09 Baso # (Auto) (0.0 - 0.20 x10 3/uL) 0.04 09/28 09/28 2304 2319 Chemistry Troponin I High Sens (27.36 - 66.23 pg/mL) < 2.5 L Serology SARS-CoV-2 Ag (Rapid) (NEGATIVE) NEGATIVE Recent Impressions: RADIOLOGY - XR CHEST 1 V 09/29 2319 Report Impression - Status: SIGNED Entered: 09/28/2021 2341 IMPRESSION: Enlarged globular contour of the cardiac silhouette is suggestive of large pericardial effusion. Impression By: [email or web address] - YOSEF GODWIN M.D. Lab Imaging Statement [...] bed, vital signs stable. Discussed with patient's elementary school music teacher, will do pericardiocentesis in [facility] in morning, keep n.p.o., admit to Dr. Tipton. Discussed with Dr. Tipton, will admit. Time of Re-Eval 2319 ED Course Medication(s) Ordered Medication(s) Ordered: Central Nervous System Agents Sig/Mona Start time Last Medication Dose Route Stop Time Status Admin Ibuprofen 600 MG Q6HR 09/29 0000 AC 09/29 PO 10/29 0001 0025 Acetaminophen 650 MG Q4H PRN PRN 09/28 2330 AC PO 09/29 2220 Aspirin 324 MG X1ED STA 09/28 2251 [...] MG DAILY 09/29 899 AC PO 10/29 09 Ondansetron HCl 4 MG Q6H PRN PRN 09/28 2330 AC IV 09/29 222 Miscellaneous Therapeutic Agen Sig/Mona Start time Last Medication Dose Route Stop Time Status Admin Colchicine 0.6 MG BID 09/29 899 AC PO 10/29 900 Patient Discharge Departure Vital Signs/Condition Vital Signs First Documented: Result Date Time Pulse Ox 100 09/28 2254 B/P 153/97 / 2254 B/P Mean 115 / 2254 O2 Delivery Room air 09/28 2254 Temp 36.7 09/28 2254 Pulse 64 09/28 2254 Resp 18 09/28 2254 Last Documented: Result Date Time Pulse Ox 100 09/28 2302 B/P 153/97 09/28 2254 B/P Mean 115 09/28 2254 O2 Delivery Room air 09/28 2254 Temp 36.7 09/28 2254 Pulse 64 / 2254 Resp 18 09/28 2254 All vital [...] over this patient's care. at 0034 RPT #:[id number] END OF [id number] 23:10:142017-7206 [facility] [address] [place] [address] PATIENT NAME: KAMRAN BELLO ADMIT DATE: 09/28/21 ACCOUNT NO: [id number] ROOM NO: [id number] AGE: 41 REPORT TYPE: eELECTROCARDIOGRAM SEX: F ADMITTING PHYSICIAN: Ron Tipton MD ATTENDING PHYSICIAN: Ron Tipton MD Order: [id number] Test Reason : SX Test Date/Time Stamp: [...] ECGs available Confirmed by HUMBERTO VALERIO MD ([id number]) on 09/29/2021 4:41:25 PM Referred By: Self Referred Confirmed by:HUMBERTO VALERIO MD at 1641 PATIENT NAME: KAMRAN BELLO 23:04:00 [id number] [facility] [address] [place] [address] PATIENT NAME: DAVID BELLO HQIRRO N ADMIT DATE: 08/30/21 ACCOUNT NO: [id number] ROOM NO: AGE: 41 SEX: F ADMITTING PHYSICIAN: ATTENDING PHYSICIAN: Robyn Henry MD Order: [id number] Test Reason : LARGE PERICARDIAL EFFUSION Test [...] ECGs available Confirmed by TIFFANI STONE MD ([id number]) on 09/03/2021 8:22:27 PM Referred By: Robyn Henry Confirmed by:TIFFANI STONE MD at 2021 PATIENT NAME: DAVID BELLO 22:17:00 [facility] ([facility]) EMERGENCY PROVIDER REPORT REPORT#:[id number] REPORT STATUS: Signed DATE:08/30/21 TIME: 2216 PATIENT: DAVID BELLO HQLONNIE Hernandez UNIT #: [id number] ROOM/BED: AGE: 41 SEX: F PCP PHYS: [...] 143 Temp 97.8 09/01 143 Pulse 66 08/31 014 Resp 18 09/01 143 Review of Vital Signs Reviewed Focused PE [...] Tests: 08/30 08/30 08/30 08/30 2253 2253 2130 2012 Chemistry Sodium (135 - 145 mEq/L) [...] (Auto) (14.5 - 29.7 %) 13.9 L Ulster % (Auto) (3.6 - 10.2 %) 9.0 Eos % (Auto) (0.0 - 3.0 %) 0.1 Baso % (Auto) (0.1 - 0.9 %) 0.3 Neut # (Auto) (K/mm3) 10.8 Lymph # (Auto) (K/mm3) 2.0 Ulster # (Auto) (K/mm3) 1.3 Eos # (Auto) (K/mm3) 0.01 Baso # (Auto) (K/mm3) 0.0 08/30 1950 Urines Urine Color (YELLOW) YELLOW Urine Appearance (CLEAR) HAZY Urine pH (5 - 9) 6.0 Ur Specific Kimball (1.001 - 1.035) 1.015 Urine Protein (NEGATIVE) [...] DC 08/30 Sodium Chloride 100 ML IV 08/303 Central Nervous System Agents Sig/Mona Start time Last Medication Dose Route Stop Time Status Admin Ketorolac 30 MG X1ED STA 08/30 2049 DC 08/30 Tromethamine IV 08/30 Acetaminophen 1,000 MG X1ED STA 08/30 1958 DC / PO 08/30 Electrolytic, Caloric, And Aba Sig/Mona Start time Last Medication Dose Route Stop Time Status Admin Potassium Chloride 40 MEQ X1ED STA 08/31 2215 DC / PO 08/30 Sodium Chloride 1,000 ML X1ED STA 08/30 2049 DC /08 IV /2050 Gastrointestinal Drugs Sig/Mona Start time Last Medication Dose Route Stop Time Status Admin Ondansetron HCl 4 MG X1ED STA 08/30 2049 DC /08 IV 08/30 Consultation Consultation Wrapper Stripper Called Cardiology (Dr Allen) Requested Call Time 0112 Requested Call Date 08/31/21 Call Returned Call returned Call Returned Time 0112 Call Returned Date 08/31/21 Wrapper Stripper okay to d/c home with outpatient evaluation for [...] 66 09/01 143 Resp 18 09/01 143 All vital signs available at the time of this entry have been reviewed. Condition Stable Clinical Impression Clinical Impression Primary Impression: UTI (urinary tract infection) Secondary Impressions: Kidney stones, Pericardial effusion Time of Impression 0122 Disposition Decision Discharge )( Discharged to Home Yes )( Time 012 )( Date 08/31/21 Discharge/Care Plan Counseled Regarding [...] Allen MD Follow-Up: Call for appointment Address: [address] [place] [id number] Discharge Note I have spoken with the [...] or a call to 911. at 0521 [facility] #:[id number] END OF REPORTHCAWH
[2024-01-19] MEDS ORDERED: ONDANSETRON 4 MG/2 ML VIAL ONE (22:00)
[2024-01-19] MEDS ORDERED: TAMSULOSIN 0.4 MG SR CAP ONE (22:00)
[2024-01-19] MEDS ORDERED: MORPHINE 4 MG/ML SYR ONE (22:01)
[2024-01-19] MEDS ORDERED: MAGNESIUM SULFATE 1 gm IVPB 1 GM/100 ML BAG IV ONE (22:01)
[2024-01-19 22:35] LABS: Specific Gravity 1.017 (1.005-1.030)
[2024-01-19 22:40] LABS: Specific Gravity 1.017 (1.005-1.030); Sqamous Epithelial <5 /HPF (None Seen); Urine Bacteria None Seen /HPF (<20); Urine Bilirubin NEGATIVE (Negative); Urine Blood Negative (Negative); Urine Clarity Clear (Clear); Urine Color Light-Yellow (Yellow); Urine Culture Reflex Order NOT NEEDED; Urine Glucose NEGATIVE (Negative); Urine Ketones NEGATIVE (Negative); Urine Microscopic Reflex YN ORDER UMIC; Urine Nitrite NEGATIVE (Negative); Urine Protein NEGATIVE (Negative); Urine RBC <5 /HPF (None Seen); Urine Urobilinogen Normal (Normal); Urine WBC <5 /HPF (<5)
[2024-01-19 22:48] LABS: Absolute Eosinophils 0.1 K/uL (0-0.5); Absolute Lymphocytes (CBC) 2.2 K/uL (0.7-4.9); Absolute Monocytes 0.3 K/uL (0.1-1.3); Absolute Neutrophil 2.7 K/uL (1.8-8.0); Basophils % 0.9 % (0-1.3); Eosinophils % 1.4 % (0-4.4); Hematocrit 35.9 % (36.0-45.0); Hemoglobin 11.8 g/dL (12.0-15.0); Lymphocytes % 41.1 % (15.3-44.8); MCH 26.6 pg (27.0-35.0); MCHC 32.9 g/dL (32.0-36.0); MCV 80.8 fL (80-100); MPV 8.4 fL (7.6-11.3); Monocytes % 5.9 % (3.3-12.3); Neutrophils % 50.7 % (41.7-73.7); Nucleated Red Blood Cells % 0.1 % (0-0); Platelets 270 thou/uL (152-406); RBC Red Blood Cell Count 4.45 M/uL (3.86-4.86); Red Cell Distribution Width 15.6 % (12.1-15.2)
[2024-01-19 23:21] LABS: Albumin 3.6 g/dL (3.4-5.0); Albumin/Globulin Ratio 0.9 (1.1-1.8); Anion Gap 9.5 mEq/L (5.0-15.0); Bilirubin Total 0.3 mg/dL (0.2-1.0); Globulin 4.1 g/dL (2.3-3.5); Potassium 3.5 mEq/L (3.5-5.1); Protein, Total 7.7 g/dL (6.4-8.2)
--- NOTE | 2024-01-20 01:36 | RAD REPORT ---
EXAMINATION: CT ABDOMEN PELVIS WITHOUT IV CONTRAST INDICATION: Female, 43 years old, PAIN COMPARISON(S): 12/04/2023, 11/09/2023 TECHNIQUE: CT acquisition of the abdomen and pelvis without contrast. Coronal and sagittal reformatte d images provided. This exam was performed according to departmental dose-optimization program which includes automated exposure control, adjustment of the mA and/or kV according to patient size, and/or use of iterative reconstruction technique. FINDINGS: SUPPORT DEVICES: None. LOWER CHEST: Mild basilar scarring/atelectasis. Imaged heart is unremarkable. ABDOMEN AND PELVIS: Lack of intravenous contrast limits evaluation of the abdominal and pelvic viscera and vascular struc tures. Photon starvation results in low [id number] and further limits assessment. Liver: Upper normal size. Gallbladder and bile ducts: Unremarkable. Pancreas: Unchanged small calcification at the head. Spleen: Unremarkable. Adrenal glands: Unremarkable. Kidneys and ureters: No evidence of ureteral stone. Similar burden of bilateral medullary nephrocalci nosis with small formed stones suspected in the upper poles. Bladder: Nondistended without evident abnormality. Reproductive organs: Uterus and ovaries are unremarkable. Redemonstrated right urogenital cyst. GI tract: Normal caliber without wall thickening. No evidence of appendicitis. Colonic diverticulosis without diverticulitis. Vessels: Unremarkable. Lymph nodes: No obvious adenopathy. Peritoneum: Physiologic volume of pelvic ascites. No evidence of fluid collection or free air. Abdominal wall: Small fat containing umbilical hernia. MUSCULOSKELETAL: No acute osseous abnormality. IMPRESSION: 1. No acute abdominopelvic finding or evidence of urinary obstruction. 2. Redemonstrated bilateral medullary nephrocalcinosis with small nonobstructing stones in the uppe r collecting systems. 3. Additional chronic and incidental findings above. Electronically signed by: Darius Olson MD 01/20/2024 01:22 AM CDT RP Due to temporary technical issues with the PACS/[employer] reporting system, reports are being honey d by the in-house radiologist without review as a courtesy to ensure prompt reporting the interpreting radiologist is fully responsible for the content of the report. Transcribed Date/Time: 01/20/2024 1:35 AM
--- NOTE | 2024-01-20 01:45 | ER ---
Nurse's Notes [facility] Name: Bon Riggins Age: 43 yrs Sex: Female : 1980 Arrival Date: 01/19/2024 Time: 21:35 Bed 19 Private MD: Diagnosis: Flank pain Presentation: 01/18 21:54 Chief complaint: Patient states: left lower back pain that started Saturday. Feels like vc1 it does when I have a kidney stone. Coronavirus screen: Client denies travel out of the [place] in the last 14 days. At this time, the client does not indicate any symptoms associated with coronavirus-19. Ebola Screen: Patient negative for fever greater than or equal to 101.5 degrees Fahrenheit, and additional compatible Ebola Virus Disease symptoms Patient denies exposure to infectious person. Patient denies travel to an Ebola-affected area in the 21 days before illness onset. No symptoms or risks identified at this time. Initial Sepsis Screen: Does the patient meet any 2 criteria? No. Patient's initial sepsis screen is negative. Does the patient have a suspected source of infection? No. Patient's initial sepsis screen is negative. Risk Assessment: Do you want to hurt yourself or someone else? Patient reports no desire to harm self or others. Onset of symptoms was January 17, 2024. Care prior to arrival: None. Activity prior to arrival: None. Mechanism of Injury: No Mechanism of Injury. Transition of care: patient was not received from another setting of care. 21:54 Method Of Arrival: Ambulatory vc1 21:54 Acuity: CARMENZA 3 vc1 Triage Assessment: 21:57 General: Appears in no apparent distress. uncomfortable, obese, well groomed, well vc1 developed, well nourished, Behavior is calm, cooperative, appropriate for age. Pain: Complains of pain in suprapubic area and left mid back Pain does not radiate. Pain currently is 6 out of 10 on a pain scale. at worst was 8 out of 10 on a pain scale. Quality of pain is described as pressure, sharp, Pain began 2-3 days ago. Is continuous, Also complains of no other associated symptoms. EENT: No deficits noted. No signs and/or symptoms were reported regarding the EENT system. Neuro: Level of Consciousness is awake, alert, obeys commands, Oriented to person, place, time, situation, Appropriate for age. Cardiovascular: No deficits noted. Respiratory: Airway is patent Respiratory effort is even, unlabored, Respiratory pattern is regular, symmetrical. GI: Abdomen is round non-distended, Patient currently denies nausea. : Reports pain in left in lower back with urination, Pain is 6 out of 10 on a pain scale. urgency, Denies vaginal bleeding. Derm: Skin is intact, is healthy with good turgor, Skin is dry, Skin is normal, Skin temperature is warm. Musculoskeletal: Circulation, motion, and sensation intact. Range of motion: intact in all extremities. 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 - Infectious Disease History:: Denies. - Social history:: Smoking status: Patient denies any tobacco usage or history of. - Family history:: not pertinent. - Hospitalizations: : No recent hospitalization is reported. Screenin:56 Abuse screen: Denies threats or abuse. Nutritional screening: No deficits noted. vc1 Tuberculosis screening: No symptoms or risk factors identified. 22:35 [facility] ED Fall Risk Assessment (Adult) History of falling in the last 3 months, tl4 including since admission No falls in past 3 months (0 pts) Confusion or Disorientation No (0 pts) Intoxicated or Sedated No (0 pts) Impaired Gait No (0 pts) Mobility Assist Device Used No (0 pt) Altered Elimination No (0 pt) Score/Fall Risk Level 0 - 2 = Low Risk Oriented to surroundings, Maintained a safe environment, Educated pt \T\ family on fall prevention, incl call for assistance when getting out of bed, Assessed \T\ reinforced patient's understanding of fall precautions. Assessment: 22:26 General: Appears in no apparent distress. Behavior is calm, cooperative. Pain: tl4 Complains of pain in back. Neuro: Level of Consciousness is awake, alert, obeys commands, Oriented to person, place, time, situation. Cardiovascular: Capillary refill < 3 seconds Patient's skin is warm and dry. Respiratory: Airway is patent Respiratory effort is even, unlabored, Respiratory pattern is regular, symmetrical, Breath sounds are clear bilaterally. GI: Bowel sounds present X 4 quads. Abd is soft and non tender X 4 quads. : No signs and/or symptoms were reported regarding the genitourinary system. EENT: No signs and/or symptoms were reported regarding the EENT system. Derm: No signs and/or symptoms reported regarding the dermatologic system. Musculoskeletal: No signs and/or symptoms reported regarding the musculoskeletal system. 23:10 Reassessment: Patient and/or family updated on plan of care and expected duration. Pain tl4 level reassessed. Patient is alert, oriented x 3, equal unlabored respirations, skin warm/dry/pink. Pt denies any needs at this time, pt resting comfortably. Family at bedside, call fernandes at bedside, will continue to monitor Patient states feeling better. 01/19 00:53 Reassessment: Patient appears in no apparent distress at this time. Patient and/or kj2 family updated on plan of care and expected duration. Pain level reassessed. Patient is alert, oriented x 3, equal unlabored respirations, skin warm/dry/pink. Vital Signs: 01/18 21:54 BP 127 / 93; Pulse 72; Resp 14; Temp 98.6; Pulse Ox 100% ; Weight 100.7 kg; Height 5 vc1 ft. 5 in. ; Pain 6/10; 22:00 BP 145 / 88; Pulse 68; Resp 18; Pulse Ox 100% on R/A; Pain 6/10; tl4 22:30 BP 136 / 75; Pulse 57; Resp 16; Pulse Ox 98% on R/A; tl4 23:00 BP 135 / 65; Pulse 57; Resp 16; Pulse Ox 96% on R/A; tl4 01/19 00:53 BP 133 / 80; Pulse 55; Resp 18; Pulse Ox 95% on R/A; kj2 02:05 BP 134 / 82; Pulse 56; Resp 18; Temp 98; Pulse Ox 97% on R/A; kj2 01/18 21:54 Body Mass Index 36.94 (100.70 kg, 165.1 cm) vc1 01/18 21:54 Pain Scale: Adult vc1 22:00 Pain Scale: Adult tl4 ED Course: 01/18 21:40 Patient arrived in ED. gm2 21:40 Tank Benson MD is Attending Physician. rn 21:55 Triage completed. vc1 21:56 Arm band placed on right wrist. vc1 21:57 Patient has correct armband on for positive identification. Bed in low position. Call vc1 light in reach. Pulse ox on. NIBP on. 22:25 CBC with Diff Sent. tl4 22:25 CMP Sent. tl4 22:25 Lipase Sent. tl4 22:25 Test, Urine Sent. tl4 22:25 Urinalysis w/ reflexes Sent. tl4 22:36 Placed in gown. Side rails up X 1. Adult w/ patient. Provided Education on: ed process, tl4 call fernandes. Door closed. Noise minimized. Lights dimmed. Moved to private room. Warm blanket given. 01/19 00:20 CT Stone Protocol In Process Unspecified. EDMS 00:52 Lynda Lanier RN is Primary Nurse. kj2 02:04 No provider procedures requiring assistance completed. kj2 02:05 IV discontinued, intact, bleeding controlled, No redness/swelling at site. Pressure kj2 dressing applied. 02:26 Primary Nurse role handed off by Lynda Lanier RN vk Administered Medications: 01/18 22:03 Drug: Flomax PO 0.4 mg PO once Route: PO; tl4 22:26 Follow up: Response: No adverse reaction tl4 22:25 Drug: morphine IVP or IV 4 mg IVP once over 4 mins Route: IVP; Infused Over: 4 mins; tl4 Site: right antecubital; 23:14 Follow up: Response: No adverse reaction; Pain is decreased tl4 22:26 Drug: Ondansetron IVP 4 mg IVP once; over 2 minutes Route: IVP; Infused Over: 2 mins; tl4 Site: right antecubital; 23:14 Follow up: Response: No adverse reaction; Nausea is decreased tl4 22:26 Drug: Magnesium Sulfate IVPB 1 grams IVPB once over 1 hrs Route: IVPB; Infused Over: 1 tl4 hrs; Site: right antecubital; Delivery: Primary tubing; 23:19 Follow up: Response: No adverse reaction; IV Status: Completed infusion; IV Intake: tl4 100ml Medication: 01/19 02:04 VIS not applicable for this client. kj2 Intake: 01/18 23:19 IV: 100ml; Total: 100ml. tl4 Outcome: 01/19 01:44 Discharge ordered by . rn 02:05 Discharged to home ambulatory, with family, kj2 02:05 Condition: stable 02:05 Discharge instructions given to patient, Instructed on discharge instructions, follow up and referral plans. Demonstrated understanding of instructions, follow-up care, 02:13 Patient left the ED. kj2 02:29 Patient left the ED. vk Signatures: Dispatcher [employer] EDMS Tank Benson MD MD rn Calcote, Vanessa RN RN 1 Sandy Wiseman 2 Freddie Kelly RN RN tl4 Shiloh Rubin Krystal, RN RN kj2
--- NOTE | 2024-01-20 01:45 | EDPHYS ---
Physician Documentation [facility] Name: Bon Riggins Age: 43 yrs Sex: Female : 1980 Arrival Date: 01/19/2024 Time: 21:35 Bed 19 Private MD: ED Physician Tank Benson HPI: 01/18 21:56 This 43 yrs old Black Female presents to ER via Ambulatory with complaints of Possible rn Kidney Stone. 21:56 The patient complains of pain in the left mid back. Onset: The symptoms/episode rn began/occurred 2 day(s) ago. Modifying factors: The symptoms are alleviated by nothing. the symptoms are aggravated by nothing. Associated signs and symptoms: Pertinent positives: dysuria, Suprapubic pressure. Severity of pain: At its worst the pain was moderate in the emergency department the pain is unchanged. The patient has experienced similar episodes in the past. Patient reports thinks has another kidney stone. Has been trying to pass a kidney stone on the right and is being tracked by her urologist. Since Saturday has been having left flank pain with suprapubic pressure. No fever or chills. Feels identical to previous kidney stones.. 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 - Infectious Disease History:: Denies. - Social history:: Smoking status: Patient denies any tobacco usage or history of. - Family history:: not pertinent. - Hospitalizations: : No recent hospitalization is reported. ROS: 21:56 Constitutional: Negative for fever, chills, and weight loss, Cardiovascular: Negative rn for chest pain, palpitations, and edema, Respiratory: Negative for shortness of breath, cough, wheezing, and pleuritic chest pain, Abdomen/GI: Negative for abdominal pain, nausea, vomiting, diarrhea, and constipation, Back: Positive for left flank pain : Positive for dysuria and suprapubic pressure Exam: 21:56 Constitutional: This is a well developed, well nourished patient who is awake, alert, rn and in no acute distress. Cardiovascular: Regular rate and rhythm. No pulse deficits. Respiratory: No increased work of breathing, no retractions or nasal flaring. Abdomen/GI: Soft, nontender Vital Signs: 21:54 BP 127 / 93; Pulse 72; Resp 14; Temp 98.6; Pulse Ox 100% ; Weight 100.7 kg; Height 5 vc1 ft. 5 in. ; Pain 6/10; 22:00 BP 145 / 88; Pulse 68; Resp 18; Pulse Ox 100% on R/A; Pain 6/10; tl4 22:30 BP 136 / 75; Pulse 57; Resp 16; Pulse Ox 98% on R/A; tl4 23:00 BP 135 / 65; Pulse 57; Resp 16; Pulse Ox 96% on R/A; tl4 01/19 00:53 BP 133 / 80; Pulse 55; Resp 18; Pulse Ox 95% on R/A; kj2 02:05 BP 134 / 82; Pulse 56; Resp 18; Temp 98; Pulse Ox 97% on R/A; kj2 01/18 21:54 Body Mass Index 36.94 (100.70 kg, 165.1 cm) vc1 01/18 21:54 Pain Scale: Adult vc1 22:00 Pain Scale: Adult tl4 MDM: 01/18 21:40 Medical Screening Exam initiated rn 22:56 ED course: Patient markedly improved with medication. States pain nearly resolved. rn 01/19 01:43 Differential diagnosis: nephrolithiasis, UTI, diverticulitis. Data reviewed: vital rn signs, nurses notes, lab test result(s), radiologic studies, CT scan, and as a result, I will discharge patient. Counseling: I had a detailed discussion with the patient and/or guardian regarding the historical points, exam findings, and any diagnostic results supporting the discharge/admit diagnosis, lab results, radiology results, the need for outpatient follow up, to return to the emergency department if symptoms worsen or persist or if there are any questions or concerns that arise at home. Response to treatment: the patient's symptoms have markedly improved after treatment, and as a result, I will discharge patient. Special discussion: I discussed with the patient/guardian in detail that at this point there is no indication for admission to the hospital. It is understood, however, that if the symptoms persist or worsen the patient needs to return immediately for re-evaluation. ED course: I have personally reviewed all of the results, including but not limited to blood tests and imaging deemed necessary to safely discharge this patient at this time. All results given to and printed out for patient. I personally went over all the results with the patient and answered all questions. Patient will follow-up with PCP and or specialist as discussed. Return precautions given and understood.. 01/18 21:40 Order name: CBC with Diff; Complete Time: 23:22 rn 01/18 21:40 Order name: CMP; Complete Time: 23:22 rn 01/18 21:40 Order name: Lipase; Complete Time: 23:22 rn 01/18 21:40 Order name: Test, Urine; Complete Time: 22:48 rn 01/18 21:40 Order name: Urinalysis w/ reflexes; Complete Time: 22:48 rn 01/18 21:40 Order name: CT Stone Protocol rn 01/18 21:40 Order name: IV Saline Lock; Complete Time: 22:25 rn 01/18 21:40 Order name: Labs collected and sent; Complete Time: 22:25 rn Administered Medications: 01/18 22:03 Drug: Flomax PO 0.4 mg PO once Route: PO; tl4 22:26 Follow up: Response: No adverse reaction tl4 22:25 Drug: morphine IVP or IV 4 mg IVP once over 4 mins Route: IVP; Infused Over: 4 mins; tl4 Site: right antecubital; 23:14 Follow up: Response: No adverse reaction; Pain is decreased tl4 22:26 Drug: Ondansetron IVP 4 mg IVP once; over 2 minutes Route: IVP; Infused Over: 2 mins; tl4 Site: right antecubital; 23:14 Follow up: Response: No adverse reaction; Nausea is decreased tl4 22:26 Drug: Magnesium Sulfate IVPB 1 grams IVPB once over 1 hrs Route: IVPB; Infused Over: 1 tl4 hrs; Site: right antecubital; Delivery: Primary tubing; 23:19 Follow up: Response: No adverse reaction; IV Status: Completed infusion; IV Intake: tl4 100ml Disposition Summary: 01/20/24 01:44 Discharge Ordered Notes: Location: Home rn Problem: new rn Symptoms: have improved rn Condition: Stable rn Diagnosis - Flank pain rn Followup: rn - With: Private Physician - When: As needed - Reason: Recheck today's complaints, Re-evaluation by your physician Discharge Instructions: - Discharge Summary Sheet rn - Flank Pain, Adult rn - Form - Return To Work vk Forms: - Medication Reconciliation Form rn - Antibiotic rn field - Prescription Opioid Use rn - Patient Portal Instructions rn - Leadership Thank You Letter rn - Work release form vk Signatures: Dispatcher [employer] Tank Costello MD MD rn Calcote, Vanessa RN RN vc1 Freddie Kelly RN RN tl4
[2024-01-20 07:13] VITALS: BP 134/82; TEMP 98; O2SAT 97
== END 2024-01-20 02:29 | disposition home or self-care (01) ==
LOC: ER 21:35
DX: R10.9 Unspecified abdominal pain (principal); R30.0 Dysuria; Z87.442 Personal history of urinary calculi
CPT/HCPCS: 85025; 81001; 36415; 81025; 83690; 80053; 76377; 74176; J3475; J2405; 96365; 96375; 99284